=== PATIENT | male | born 1965 | race Caucasian/White ===

== ENCOUNTER 2016-07-29 10:52 | Inpatient (IN) | payer OTHER, MEDICARE ==
[2016-07-29] MEDS ORDERED: SODIUM CHLORIDE 0.9% 500 ML IV STA (11:29)
[2016-07-29] MEDS ORDERED: SODIUM CHLORIDE 0.9% 1,000 ML IV STA (11:29)
[2016-07-29 11:46] LABS: Basophils # (A) 0.1 k/uL (0-0.2); Basophils % (A) 1 %; CHCM 33.6; Eosinophils # (A) 0.1 k/uL (0-0.7); Eosinophils % (A) 1 %; HCT 47.7 % (39.0-53.0); HDW 2.49; HGB 15.9 gm/dL (13.0-17.5); Luc # (Auto) 0.19; Luc % (Auto) 3; Lymphocytes # (A) 2.2 k/uL (1.0-4.8); Lymphocytes % (A) 34 %; MCH 31.9 pg (25.0-35.0); MCHC 33.3 g/dL (31.0-37.0); MCV 95.7 fL (80.0-100.0); Monocytes # (A) 0.5 k/uL (0-1.0); Monocytes % (A) 8 %; Neutrophils # (A) 3.6 k/uL (1.3-7.7); Neutrophils % (A) 54 %; RBC 4.99 m/uL (4.30-5.90); WBC 6.7 k/uL (3.8-10.6); WBC (Perox) 6.58
--- NOTE | 2016-07-29 11:50 | ED ---
General Adult HPI - General Chief complaint: Dizziness Stated complaint: dizzy Time Seen by Provider: 07/29/16 11:24 Source: patient, RN notes reviewed, old records reviewed Mode of arrival: wheelchair Limitations: no limitations - History of Present Illness Initial comments: This is a 51-year-old male here for evaluation of dizziness. Patient having significant rotatory dizziness, falling. Symptoms are going on for a few days on and off. No headache or chest pain. No other neurological deficit aside from the dizziness. Patient states the room was spinning around, he states he does have fogginess, feels lightheaded and weak. No fevers, no significant recent medication changes - Related Data Home Medications Medication Instructions Recorded Confirmed carBAMazepine [Carbatrol] 300 mg PO Q12HR 05/28/15 07/29/16 Atorvastatin [Lipitor] 40 mg PO HS 07/17/15 07/29/16 Divalproex [Depakote] 500 mg PO TID 07/17/15 07/29/16 Fludrocortisone [Florinef] 0.1 mg PO BID 07/17/15 07/29/16 levETIRAcetam [Keppra] 750 mg PO BID 07/17/15 07/29/16 Cholecalciferol [Vitamin D3] 5,000 unit PO DAILY 07/29/15 07/29/16 Metoprolol Tartrate [Lopressor] 12.5 mg PO BID 07/29/15 07/29/16 Niacin 500 mg PO DAILY 07/29/15 07/29/16 Meclizine [Antivert] 25 mg PO TID PRN 07/29/16 07/29/16 Scopolamine 1.5MG/72Hr Patch 1 patch TRANSDERM Q72H 07/29/16 07/29/16 [Transderm-Scop 1.5MG/72Hr Patch] amLODIPine [Norvasc] 5 mg PO DAILY 07/29/16 07/29/16 lamoTRIgine [LaMICtal] 100 mg PO BID 07/29/16 07/29/16 Previous Rx's Medication Instructions Recorded Clopidogrel [Plavix] 75 mg PO DAILY #30 tab 07/19/15 Allergies Allergy/AdvReac Type Severity Reaction Status Date / Time No Known Allergies Allergy Verified 07/29/16 11:49 Review of Systems ROS Statement: Those systems with pertinent positive or pertinent negative responses have been documented in the HPI. ROS Other: All systems not noted in ROS Statement are negative. Past Medical History Past Medical History: Hypertension, Memory Impairment, Seizure Disorder Additional Past Medical History / Comment(s): PT STATED" I HAD A HEART ATTACK AND A STROKE IN MAY," LT SIDE AFFECTED.LT SIDE DOMINANT.STATED" CAN WRITE BUT NOT EASY AND LT FOOT DRAGS A BIT". STILL GETS SPEECH THERAPY.STATED"BOARDERLINE DIABETIC NO MEDS TAKEN".PT ALSO STATED HE WAS TOLD HE HAD KIDNEY TROUBLE". History of Any Multi-Drug Resistant Organisms: None Reported Past Surgical History: Adenoidectomy, Tonsillectomy Additional Past Surgical History / Comment(s): TUBES IN EARS Past Anesthesia/Blood Transfusion Reactions: No Reported Reaction Past Psychological History: No Psychological Hx Reported Additional Psychological History / Comment(s): STATED" STILL HAVE TROUBLE WITH SPEECH AT TIMES AND MEMORY. Smoking Status: Never smoker Past Alcohol Use History: None Reported Past Drug Use History: None Reported - Past Family History Father Family Medical History: Unable to Obtain Mother Family Medical History: Unable to Obtain General Exam Limitations: no limitations General appearance: alert, in no apparent distress Head exam: Present: atraumatic, normocephalic, normal inspection Eye exam: Present: normal appearance, PERRL, EOMI, nystagmus (Bilateral nystagmus). Absent: scleral icterus, conjunctival injection, periorbital swelling ENT exam: Present: normal exam, mucous membranes moist Neck exam: Present: normal inspection. Absent: tenderness, meningismus, lymphadenopathy Respiratory exam: Present: normal lung sounds bilaterally. Absent: respiratory distress, wheezes, rales, rhonchi, stridor Cardiovascular Exam: Present: regular rate, normal rhythm, normal heart sounds. Absent: systolic murmur, diastolic murmur, rubs, gallop, clicks GI/Abdominal exam: Present: soft, normal bowel sounds. Absent: distended, tenderness, guarding, rebound, rigid Extremities exam: Present: normal inspection, full ROM, normal capillary refill. Absent: tenderness, pedal edema, joint swelling, calf tenderness Back exam: Present: normal inspection Neurological exam: Present: alert, oriented X3, CN II-XII intact Psychiatric exam: Present: normal affect, normal mood Skin exam: Present: warm, dry, intact, normal color. Absent: rash Course Vital Signs 07/29/16 07/29/16 07/29/16 10:55 11:20 11:57 Temperature 97.8 F Pulse Rate 75 80 79 Respiratory 20 16 16 Rate Blood Pressure 176/94 195/104 181/114 O2 Sat by Pulse 96 99 98 Oximetry 07/29/16 14:07 Temperature 98.7 F Pulse Rate 76 Respiratory 16 Rate Blood Pressure 175/96 O2 Sat by Pulse 99 Oximetry EKG Findings - EKG Comments: EKG Findings:: EKG shows normal sinus rhythm rate of 83, NJ 136, QRS 86, QTC 451 Medical Decision Making - Medical Decision Making 51-year-old male of the ER for evaluation of a. He comes to the ER for evaluation of a tachycardia, valproic acid is toxic, patient be admitted for IV hydration and monitoring of ataxia - Lab Data Result diagrams: 07/29/16 11:12 07/29/16 11:12 Lab Results 07/29/16 07/29/16 07/29/16 Range/Units 11:12 11:12 11:12 WBC 6.7 (3.8-10.6) k/uL RBC 4.99 (4.30-5.90) m/uL Hgb 15.9 (13.0-17.5) gm/dL Hct 47.7 (39.0-53.0) % MCV 95.7 (80.0-100.0) fL MCH 31.9 (25.0-35.0) pg MCHC 33.3 (31.0-37.0) g/dL RDW 14.0 (11.5-15.5) % Plt Count 182 (150-450) k/uL Neutrophils % 54 % Lymphocytes % 34 % Monocytes % 8 % Eosinophils % 1 % Basophils % 1 % Neutrophils # 3.6 (1.3-7.7) k/uL Lymphocytes # 2.2 (1.0-4.8) k/uL Monocytes # 0.5 (0-1.0) k/uL Eosinophils # 0.1 (0-0.7) k/uL Basophils # 0.1 (0-0.2) k/uL PT (9.0-12.0) sec INR (<1.1) APTT (22.0-30.0) sec Sodium 144 (137-145) mmol/L Potassium 4.0 (3.5-5.1) mmol/L Chloride 101 (98-107) mmol/L Carbon Dioxide 28 (22-30) mmol/L Anion Gap 15 mmol/L BUN 8 L (9-20) mg/dL Creatinine 0.97 (0.66-1.25) mg/dL Est GFR (MDRD) Af Amer >60 (>60 ml/min/1.73 sqM) Est GFR (MDRD) Non-Af >60 (>60 ml/min/1.73 sqM) Glucose 98 (74-99) mg/dL POC Glucose (mg/dL) (75-99) mg/dL POC Glu Manager Skilled ID Calcium 9.6 (8.4-10.2) mg/dL Phosphorus 3.0 (2.5-4.5) mg/dL Magnesium 2.0 (1.6-2.3) mg/dL Total Bilirubin 0.6 (0.2-1.3) mg/dL AST 27 (17-59) U/L ALT 16 L (21-72) U/L Alkaline Phosphatase 77 (38-126) U/L Ammonia (<30) umol/L Total Creatine Kinase 180 H (55-170) U/L CK-MB (CK-2) 0.5 (0.0-2.4) ng/mL CK-MB (CK-2) Rel Index 0.3 Troponin I <0.012 (0.000-0.034) ng/mL Total Protein 8.0 (6.3-8.2) g/dL Albumin 4.7 (3.5-5.0) g/dL Urine Color Urine Appearance (Clear) Urine pH (5.0-8.0) Ur Specific [place] (1.001-1.035) Urine Protein (Negative) Urine Glucose (UA) (Negative) Urine Ketones (Negative) Urine Blood (Negative) Urine Nitrite (Negative) Urine Bilirubin (Negative) Urine Urobilinogen (<2.0) mg/dL Ur Leukocyte Esterase (Negative) Valproic Acid ug/mL 07/29/16 07/29/16 07/29/16 Range/Units 11:12 11:12 11:12 WBC (3.8-10.6) k/uL RBC (4.30-5.90) m/uL Hgb (13.0-17.5) gm/dL Hct (39.0-53.0) % MCV (80.0-100.0) fL MCH (25.0-35.0) pg MCHC (31.0-37.0) g/dL RDW (11.5-15.5) % Plt Count (150-450) k/uL Neutrophils % % Lymphocytes % % Monocytes % % Eosinophils % % Basophils % % Neutrophils # (1.3-7.7) k/uL Lymphocytes # (1.0-4.8) k/uL Monocytes # (0-1.0) k/uL Eosinophils # (0-0.7) k/uL Basophils # (0-0.2) k/uL PT 10.4 (9.0-12.0) sec INR 1.0 (<1.1) APTT 22.4 (22.0-30.0) sec Sodium (137-145) mmol/L Potassium (3.5-5.1) mmol/L Chloride (98-107) mmol/L Carbon Dioxide (22-30) mmol/L Anion Gap mmol/L BUN (9-20) mg/dL Creatinine (0.66-1.25) mg/dL Est GFR (MDRD) Af Amer (>60 ml/min/1.73 sqM) Est GFR (MDRD) Non-Af (>60 ml/min/1.73 sqM) Glucose (74-99) mg/dL POC Glucose (mg/dL) 96 (75-99) mg/dL POC Glu Manager Skilled ID Tal, Lynne Calcium (8.4-10.2) mg/dL Phosphorus (2.5-4.5) mg/dL Magnesium (1.6-2.3) mg/dL Total Bilirubin (0.2-1.3) mg/dL AST (17-59) U/L ALT (21-72) U/L Alkaline Phosphatase (38-126) U/L Ammonia (<30) umol/L Total Creatine Kinase (55-170) U/L CK-MB (CK-2) (0.0-2.4) ng/mL CK-MB (CK-2) Rel Index Troponin I (0.000-0.034) ng/mL Total Protein (6.3-8.2) g/dL Albumin (3.5-5.0) g/dL Urine Color Urine Appearance (Clear) Urine pH (5.0-8.0) Ur Specific [place] (1.001-1.035) Urine Protein (Negative) Urine Glucose (UA) (Negative) Urine Ketones (Negative) Urine Blood (Negative) Urine Nitrite (Negative) Urine Bilirubin (Negative) Urine Urobilinogen (<2.0) mg/dL Ur Leukocyte Esterase (Negative) Valproic Acid 109.2 H* ug/mL 07/29/16 07/29/16 Range/Units 14:00 14:03 WBC (3.8-10.6) k/uL RBC (4.30-5.90) m/uL Hgb (13.0-17.5) gm/dL Hct (39.0-53.0) % MCV (80.0-100.0) fL MCH (25.0-35.0) pg MCHC (31.0-37.0) g/dL RDW (11.5-15.5) % Plt Count (150-450) k/uL Neutrophils % % Lymphocytes % % Monocytes % % Eosinophils % % Basophils % % Neutrophils # (1.3-7.7) k/uL Lymphocytes # (1.0-4.8) k/uL Monocytes # (0-1.0) k/uL Eosinophils # (0-0.7) k/uL Basophils # (0-0.2) k/uL PT (9.0-12.0) sec INR (<1.1) APTT (22.0-30.0) sec Sodium (137-145) mmol/L Potassium (3.5-5.1) mmol/L Chloride (98-107) mmol/L Carbon Dioxide (22-30) mmol/L Anion Gap mmol/L BUN (9-20) mg/dL Creatinine (0.66-1.25) mg/dL Est GFR (MDRD) Af Amer (>60 ml/min/1.73 sqM) Est GFR (MDRD) Non-Af (>60 ml/min/1.73 sqM) Glucose (74-99) mg/dL POC Glucose (mg/dL) (75-99) mg/dL POC Glu Manager Skilled ID Calcium (8.4-10.2) mg/dL Phosphorus (2.5-4.5) mg/dL Magnesium (1.6-2.3) mg/dL Total Bilirubin (0.2-1.3) mg/dL AST (17-59) U/L ALT (21-72) U/L Alkaline Phosphatase (38-126) U/L Ammonia 23 (<30) umol/L Total Creatine Kinase (55-170) U/L CK-MB (CK-2) (0.0-2.4) ng/mL CK-MB (CK-2) Rel Index Troponin I (0.000-0.034) ng/mL Total Protein (6.3-8.2) g/dL Albumin (3.5-5.0) g/dL Urine Color Yellow Urine Appearance Clear (Clear) Urine pH 7.0 (5.0-8.0) Ur Specific [place] 1.008 (1.001-1.035) Urine Protein Negative (Negative) Urine Glucose (UA) Negative (Negative) Urine Ketones Negative (Negative) Urine Blood Negative (Negative) Urine Nitrite Negative (Negative) Urine Bilirubin Negative (Negative) Urine Urobilinogen <2.0 (<2.0) mg/dL Ur Leukocyte Esterase Negative (Negative) Valproic Acid ug/mL - Radiology Data Radiology results: report reviewed (Chest x-ray is negative for acute disease), image reviewed Disposition Clinical Impression: Ataxic gait, Valproic acid toxicity Dis[facility] Condition: Good Referrals: Aman Smyth MD [Primary Care Provider] - 1-2 days
[2016-07-29 11:55] LABS: Partial Thromboplastin Time 22.4 sec (22.0-30.0); Prothrombin Time 10.4 sec (9.0-12.0)
--- NOTE | 2016-07-29 12:03 | CT ---
EXAMINATION TYPE: CT brain wo con DATE OF EXAM: 07/29/2016 11:59 AM COMPARISON: 07/28/15 HISTORY: Dizziness, weakness, frequent falls x10 days. CT DLP: 1017.[address] of the brain was performed. The ventricles, basal cisterns and sulci overlying the cerebral convexities demonstrate mild enlargem ent. There is no evidence for intracranial hemorrhage or sulcal effacement. There is decreased attenuation about the periventricular white matter and deep white matter of both c erebral hemispheres, compatible with chronic small vessel ischemia. Differential diagnosis does inclu de demyelination. No mass effects are seen.No midline shift. Osseous calvarium is intact. If symptoms persist consider MRI. IMPRESSION: 1. Age related atrophic and chronic small vessel ischemic change without acute intracranial process s een at this time.
[2016-07-29 12:11] LABS: ALT 16 U/L (21-72); AST 27 U/L (17-59); Alkaline Phosphatase 77 U/L (38-126); Anion Gap 15 mmol/L; Blood Urea Nitrogen 8 mg/dL (9-20); Calcium 9.6 mg/dL (8.4-10.2); Carbon Dioxide 28 mmol/L (22-30); Chloride 101 mmol/L (98-107); Glucose 98 mg/dL (74-99); Non-African American GFR(MDRD) >60 (>60 ml/min/1.73 sqM); Sodium 144 mmol/L (137-145); Total Bilirubin 0.6 mg/dL (0.2-1.3)
[2016-07-29 12:18] LABS: Creatine Kinase 180 U/L (55-170)
[2016-07-29 12:21] LABS: Glucose,Whole Blood 96 mg/dL (75-99)
[2016-07-29 12:31] LABS: Creatine Kinase MB 0.5 ng/mL (0.0-2.4); Troponin I <0.012 ng/mL (0.000-0.034)
[2016-07-29 14:28] LABS: Appearance,Urine Clear (Clear); Bilirubin,Urine Negative (Negative); Glucose,Urine (UA) Negative (Negative); Ketones,Urine Negative (Negative); Leukocyte Esterase,Urine Negative (Negative); Nitrite,Urine Negative (Negative); Protein,Urine Negative (Negative); Specific Gravity,Urine 1.008 (1.001-1.035); UA Billing (MACRO vs. MICRO) CHEM; Urobilinogen,Urine <2.0 mg/dL (<2.0)
[2016-07-29] MEDS ORDERED: SODIUM CHLORIDE 0.9% 1,000 ML IV ONE (14:35)
[2016-07-29 16:57] VITALS: BMI 35.4
[2016-07-29] MEDS ORDERED: MECLIZINE 25 MG TAB PO PRN (20:15)
--- NOTE | 2016-07-29 20:49 | P.CNNES ---
History of Present Illness Consult date: 07/29/16 History of Present Illness: The patient is a 51-year-old white male with history of seizure disorder. He states he normally has about 2 seizures a month. He has been on Depakote Keppra Carbatrol and Lamictal and continues to have 2 partial seizures per month. Patient states he is a candidate for VNS and he will be having an appointment next week regarding that. The patient states his been dizzy since before [place] time. He came into the hospital with dizziness and was found to have elevated Depakotel of 109. The patient and his CT of the brain which was unremarkable. Review of Systems Constitutional: Denies chills, Denies fever Eyes: denies blurred vision, denies pain Ears, nose, mouth and throat: Denies headache, Denies sore throat Cardiovascular: Denies chest pain, Denies shortness of breath Respiratory: Denies cough Gastrointestinal: Denies abdominal pain, Denies diarrhea, Denies nausea, Denies vomiting Musculoskeletal: Denies myalgias Integumentary: Denies pruritus, Denies rash Neurological: Denies numbness, Denies weakness Psychiatric: Denies anxiety, Denies depression Endocrine: Reports as per HPI Past Medical History Past Medical History: Hypertension, Memory Impairment, Seizure Disorder Additional Past Medical History / Comment(s): PT STATED" I HAD A HEART ATTACK AND A STROKE IN MAY," LT SIDE AFFECTED.LT SIDE DOMINANT.STATED" CAN WRITE BUT NOT EASY AND LT FOOT DRAGS A BIT". STILL GETS SPEECH THERAPY.STATED"BOARDERLINE DIABETIC NO MEDS TAKEN".PT ALSO STATED HE WAS TOLD HE HAD KIDNEY TROUBLE".; last seizure 07/28/16 History of Any Multi-Drug Resistant Organisms: None Reported Past Surgical History: Adenoidectomy, Tonsillectomy Additional Past Surgical History / Comment(s): TUBES IN EARS Past Anesthesia/Blood Transfusion Reactions: No Reported Reaction Past Psychological History: No Psychological Hx Reported Additional Psychological History / Comment(s): STATED" STILL HAVE TROUBLE WITH SPEECH AT TIMES AND MEMORY. Smoking Status: Never smoker Past Alcohol Use History: None Reported Past Drug Use History: None Reported - Past Family History Father Family Medical History: Unable to Obtain Mother Family Medical History: Unable to Obtain Medications and Allergies Home Medications Medication Instructions Recorded Confirmed Type carBAMazepine [Carbatrol] 300 mg PO Q12HR 05/28/15 07/29/16 History Atorvastatin [Lipitor] 40 mg PO HS 07/17/15 07/29/16 History Divalproex [Depakote] 500 mg PO TID 07/17/15 07/29/16 History Fludrocortisone [Florinef] 0.1 mg PO BID 07/17/15 07/29/16 History levETIRAcetam [Keppra] 750 mg PO BID 07/17/15 07/29/16 History Cholecalciferol [Vitamin D3] 5,000 unit PO DAILY 07/29/15 07/29/16 History Metoprolol Tartrate [Lopressor] 12.5 mg PO BID 07/29/15 07/29/16 History Niacin 500 mg PO DAILY 07/29/15 07/29/16 History Meclizine [Antivert] 25 mg PO TID PRN 07/29/16 07/29/16 History Scopolamine 1.5MG/72Hr Patch 1 patch TRANSDERM Q72H 07/29/16 07/29/16 History [Transderm-Scop 1.5MG/72Hr Patch] amLODIPine [Norvasc] 5 mg PO DAILY 07/29/16 07/29/16 History lamoTRIgine [LaMICtal] 100 mg PO BID 07/29/16 07/29/16 History Allergies Allergy/AdvReac Type Severity Reaction Status Date / Time No Known Allergies Allergy Verified 07/29/16 11:49 Physical Examination - Vital Signs Vital Signs: Vital Signs Temp Pulse Pulse Resp BP BP Pulse Ox 07/29/16 16:19 98.2 F 82 16 177/94 96 07/29/16 15:56 98.7 F 65 16 148/85 96 Intake and Output 07/29/16 07/29/16 07/29/16 06:59 14:59 22:59 Intake Total 480 Balance 480 Intake: Oral 480 Other: # Voids 1 Weight 90.718 kg Patient Weight 07/30/16 06:59 Weight 90.718 kg - Constitutional General appearance: average body habitus - EENT EENT: PERRL, hearing intact - Respiratory Respiratory: chest non-tender, lungs clear - Cardiovascular Cardiovascular: regular rate, normal S1, normal S2 - Integumentary Integumentary: normal - Neurologic Mental status he was awake alert and oriented he answered questions appropriately there is no aphasia or dysarthria Cranial nerve examination: EOMI, VFF, V1/V2/V3 grossly intact, face symmetric, tongue midline Speech examination: intact Detailed motor examination: grossly full strength in all extremities Reflexes: 2+: knee - Psychiatric Psychiatric: mood/affect appropriate Results - Laboratory Findings CBC and BMP: 07/29/16 11:12 07/29/16 11:12 Assessment and Plan (1) Ataxic gait Status: Acute Code(s): R26.0 - ATAXIC GAIT (2) Seizures Status: Acute Code(s): R56.9 - UNSPECIFIED CONVULSIONS (3) Valproic acid toxicity Status: Acute Code(s): T42.6X1A - POISONING BY OTH ANTIEPLPTC AND SED-HYPNTC DRUGS, ACC, INIT Plan: The patient came in to the hospital with dizziness and ataxia. Patient had 2 seizures yesterday. We'll check trough anticonvulsant levels in a.m. One dose of Depakote will be held today. Had a CT of the brain which was unremarkable.
[2016-07-29] MEDS ORDERED: DIVALPROEX 500 MG TABLET.DR PO SCH ×2 (22:00)
[2016-07-29] MEDS: FLUDROCORTISONE 0.1 MG TAB PO SCH (22:18)
[2016-07-29] MEDS: carBAMazepine 300 MG CPMP.12HR PO SCH (22:18)
[2016-07-29] MEDS: ATORVASTATIN 40 MG TAB PO SCH (22:18)
[2016-07-29] MEDS: lamoTRIgine 100 MG TAB PO SCH (22:18)
[2016-07-29] MEDS: METOPROLOL TARTRATE 12.5 MG TAB PO SCH (22:18)
[2016-07-30 07:42] LABS: Carbamazepine (Tegretol) 8.4 ug/mL
[2016-07-30] MEDS: carBAMazepine 300 MG CPMP.12HR PO SCH ×2 (08:14→21:26)
[2016-07-30] MEDS: METOPROLOL TARTRATE 12.5 MG TAB PO SCH (08:14)
[2016-07-30] MEDS: DIVALPROEX 500 MG TABLET.DR PO SCH ×2 (08:15→21:26)
[2016-07-30] MEDS: CLOPIDOGREL 75 MG TAB PO SCH (08:16)
[2016-07-30] MEDS: FLUDROCORTISONE 0.1 MG TAB PO SCH ×2 (08:16→21:26)
[2016-07-30] MEDS: lamoTRIgine 100 MG TAB PO SCH ×2 (08:17→21:26)
[2016-07-30] MEDS: NIACIN TR 500 MG CAPSULE.ER PO SCH (08:18)
[2016-07-30] MEDS ORDERED: DIVALPROEX 500 MG TABLET.DR PO SCH (09:00)
[2016-07-30] MEDS ORDERED: amLODIPine 5 MG TAB PO SCH (09:00)
[2016-07-30] MEDS: ENOXAPARIN 40 MG/0.4 ML SYRINGE SQ SCH (09:27)
[2016-07-30] MEDS: CHOLECALCIFEROL 1,000 UNIT TAB PO SCH (12:09)
[2016-07-30] MEDS: METOPROLOL TARTRATE 25 MG TAB PO SCH ×2 (18:04→21:27)
--- NOTE | 2016-07-30 20:54 | HP ---
DATE OF ADMISSION: 07/29/2016 PRESENTING COMPLAINT: Near-syncope. HISTORY OF PRESENTING COMPLAINT: This is a 51-year-old patient who has with a rather extensive medical history. Patient in July of last year was found to have orthostatic hypotension and autonomic dysfunction; could be from prior strokes. Patient also has a diagnosis of absent seizures, coronary artery disease, prior history of myocardial infarction, essential hypertension. Patient did have a seizure about 4 or 5 days ago. Patient presented with getting dizzy, and he nearly passed out 2 times. Patient back in July of last year had a tilt table test and was found to have orthostatic hypotension syndrome. This was done by Dr. Contreras. Patient also had an EEG at that time that showed some moderately diffuse abnormality in the background. There was no seizure activity picked up at that point. Patient was seen on that admission by Dr. Rolle. Patient at this point states that he gets dizzy when he ( ) gets up. There is no focal weakness, no seizure activity with these passing-out episodes or near-syncopal episodes. Hence he presented here. Patient in the past has also had a negative KENNETH and a carotid Doppler and a 2-D echocardiogram that showed preserved LV function. It may be noted that patient had a stroke previously affecting the right frontal, right parietal and occipital lobe and did have an MRA at [facility]. Patient also previously had an ST-elevation myocardial infarction, had a low EF of 30%. Repeat EF had come back to normal. REVIEW OF SYSTEMS: CONSTITUTIONAL: Tired. HEENT: As above. RESPIRATORY: None. CARDIOVASCULAR: None. GASTROINTESTINAL: None. GENITOURINARY: None. MUSCULOSKELETAL: None. DERMATOLOGICAL: None. HEMATOLOGICAL: None. LYMPHATICS: None. PSYCHIATRY: None. NEUROLOGICAL: As above. PAST MEDICAL HISTORY: 1. Stroke affecting the parietal, frontal and left occipital lobe with a negative MRA at [facility]. 2. Acute ST-elevation myocardial infarction. Initial EF was 30%. Repeat echo showed preserved LV function. 3. Seizure disorder. 4. Dysarthria from stroke. 5. Orthostatic hypotension from autonomic dysfunction. PAST SURGICAL HISTORY: 1. Adenoidectomy. 2. Tonsillectomy. 3. Tubes in the ears. SOCIAL HISTORY: . No smoking or alcohol. FAMILY HISTORY: Reviewed; noncontributory to presentation. ALLERGIES: NONE. HOME MEDICATIONS: 1. Scopolamine patch 1.5 q.72 hours. 2. Lipitor 40 mg at bedtime. 3. Keppra 750 mg p.o. b.i.d. 4. Lamictal 100 mg p.o. b.i.d. 5. Carbatrol 300 mg p.o. q.12. 6. Norvasc 5 mg p.o. daily. 7. Niacin 500 mg daily. 8. Lopressor 12.5 p.o. b.i.d. 9. Antivert 25 p.o. t.i.d. p.r.n. 10. Florinef 0.1 mg p.o. b.i.d. 11. Depakote 500 mg p.o. t.i.d. 12. Plavix 75 mg p.o. daily. 13. Vitamin D3 5000 units p.o. daily. PHYSICAL EXAMINATION: VITAL SIGNS ON PRESENTATION: Temperature 97.8, pulse 75, respiration 20, blood pressure 176/94; repeat 195/104. Pulse ox 99% on 2 L. GENERAL APPEARANCE: Average build. Lying in bed. Not in distress. EYES: Pupils equal. Conjunctivae normal. HEENT: External appearance of nose and ears normal. Oral cavity normal. NECK: JVD not raised. Mass not palpable. RESPIRATORY: Effort normal. Lungs are clear. CARDIOVASCULAR: First and second sounds normal. No edema. ABDOMEN: Soft, nontender. Liver and spleen not palpable. LYMPHATIC: No lymph node palpable in neck or axillae. PSYCHIATRY: Alert and oriented x3. Mood and affect normal. NEUROLOGICAL: Pupils equal. Cranial nerves grossly intact. Power and sensation grossly intact. INVESTIGATIONS: White count 6.7, hemoglobin 15.9. Potassium 4.0. BUN 8, creatinine 0.97. Troponin less than 0.012. Patient's valproic acid did come back at 109.2. ASSESSMENT: 1. Valproic acid toxicity. 2. Orthostatic hypertension in a patient with known autonomic dysfunction. 3. Prior strokes in multiple lobes with a negative MRA. 4. Coronary artery disease with prior history of ST-elevation myocardial infarction. 5. Essential hypertension. 6. Absent seizures. PLAN: At this point will check patient's orthostatics, both standing and lying, at 0, 1 and 3 minutes. Will also increase patient's Lopressor to 25 mg 3 times a day and discontinue Norvasc. Neurology was consulted regarding the valproic acid toxic level, and medication will be adjusted accordingly. Will make sure patient has GERTRUDIS stockings. Florinef to be continued. Patient will need inpatient stay of at least 2 nights so that patient does not harm himself and while his medications can be adjusted and neurological workup is done. Patient's previous workup, including carotid Doppler and EEG, was negative, though patient is known to have seizure activity.
[2016-07-30] MEDS: ATORVASTATIN 40 MG TAB PO SCH (21:26)
[2016-07-31] MEDS: FLUDROCORTISONE 0.1 MG TAB PO SCH (08:29)
[2016-07-31] MEDS: lamoTRIgine 100 MG TAB PO SCH (08:29)
[2016-07-31] MEDS: CLOPIDOGREL 75 MG TAB PO SCH (08:29)
[2016-07-31] MEDS: NIACIN TR 500 MG CAPSULE.ER PO SCH (08:29)
[2016-07-31] MEDS: METOPROLOL TARTRATE 25 MG TAB PO SCH ×2 (08:29→16:39)
[2016-07-31] MEDS: carBAMazepine 300 MG CPMP.12HR PO SCH (08:30)
[2016-07-31] MEDS: DIVALPROEX 500 MG TABLET.DR PO SCH ×2 (08:30)
[2016-07-31] MEDS: ENOXAPARIN 40 MG/0.4 ML SYRINGE SQ SCH (08:30)
[2016-07-31] MEDS: CHOLECALCIFEROL 1,000 UNIT TAB PO SCH (13:06)
[2016-07-31 15:51] VITALS: BP 154/87; PULSE 75; RESP 15; TEMP 98.4
--- NOTE | 2016-08-02 09:37 | DS ---
DATE OF ADMISSION: 07/29/2016 DATE OF DISCHARGE: 07/31/2016 FINAL DIAGNOSES: 1. Valproic acid toxicity present on admission. 2. Syncope from orthostatic hypertension in a patient with known autonomic dysfunction. 3. Prior stroke in multiple lobes with negative MRA. 4. Coronary artery disease prior history of ST elevation myocardial infarction. 5. Essential hypertension. 6. Absence seizures. HOSPITAL COURSE: This patient presented with near syncope times two. Patient has from a prior work-up rather extensively had a negative MRA, KENNETH, carotid Doppler all showing preserved LV function. Also had MRA at [facility], all that is negative. Prior stroke affecting lobes. This admission, patient Amlodipine was discontinued and dose of Lopressor was increased. Also given GERTRUDIS stockings. Patient also was found to have Valproic acid toxicity. Level of 109, did come down to 92.2. CT scan of the brain showed some chronic changes. At the time of discharge, the patient actually up and about. Symptoms greatly improved. Note that patient's blood pressure tends to run a bit on the higher side, which is fine as far as his ( ) syncope is being prevented. Care discussed in detail with the patient. Also working ( ) taken from Dr. Rolle from discharge. On exam, lungs are clear. CARDIOVASCULAR: First and second sounds normal. Discharge planning more than 35 minutes. DISCHARGE MEDICATIONS: 1. Amlodipine continued. 2. Carbatrol 300 mg p.o. q12. 3. Lipitor 40 mg q.h.s. 4. Depakote 1000 mg in the morning, 500 mg in the afternoon. 5. Keppra 750 mg p.o. b.i.d. 6. Plavix 75 mg a day. 7. Vitamin D3 5000 units p.o. daily. 8. Niacin 500 mg a day. 9. Lamictal 100 mg p.o. b.i.d. 10. Lopressor 25 mg p.o. t.i.d. DISPOSITION: Home. Follow up with Dr. Smyth in one week. Follow up with Dr. Walsh in one week. Seizure precautions, including no driving. Depakote level in 1 week. DC planning more than 35 minutes.
== END 2016-07-31 19:24 | disposition home or self-care (01) | DRG 57 ==
LOC: EC 10:52 → 3SUR 14:35
PROVIDERS: ADMIT Hospitalist; ATTEND Hospitalist
DX: G90.3 Multi-system degeneration of the autonomic nervous system (principal); G40.89 Other seizures; T42.6X5A Adverse effect of other antiepileptic and sedative-hypnotic drugs, initial encounter; E11.9 Type 2 diabetes mellitus without complications; I10 Essential (primary) hypertension; I25.10 Atherosclerotic heart disease of native coronary artery without angina pectoris; I25.2 Old myocardial infarction; R27.0 Ataxia, unspecified; I69.998 Other sequelae following unspecified cerebrovascular disease; Z79.02 Long term (current) use of antithrombotics/antiplatelets; Z79.899 Other long term (current) drug therapy; Y92.009 Unspecified place in unspecified non-institutional (private) residence as the place of occurrence of the external cause
CPT/HCPCS: 36415; 70450; 80053; 80156; 80164; 80165; 80175; 80177; 81003; 82140; 82550; 82553; 83735; 84100; 84484; 85025; 85610; 85730; 87086; 93005; 96360; 96361; 99285

== ENCOUNTER → 2016-08-05 | Outpatient (CLI) | payer OTHER, MEDICARE | END | disposition home or self-care (01) | LOC: LABWHC1 07:53 | PROVIDERS: ATTEND Hospitalist | DX: R56.9 Unspecified convulsions (principal); Z51.81 Encounter for therapeutic drug level monitoring | CPT/HCPCS: 36415; 80164 ==

== ENCOUNTER → 2017-04-01 | Outpatient (CLI) | payer OTHER, MEDICARE ==
[2017-04-01 10:50] LABS: Carbamazepine (Tegretol) 10.5 ug/mL
[2017-04-02 05:28] LABS: Lamotrigine (Lamictal) 5.4 ug/mL (2.0-15.0)
[2017-04-02 06:17] LABS: Levetiracetam (Keppra) 18.1 ug/mL (3.0-60.0)
== END | disposition home or self-care (01) ==
LOC: LABWHC1 08:09
PROVIDERS: ATTEND Psychiatry & Neurology Pain Medicine
DX: G40.909 Epilepsy, unspecified, not intractable, without status epilepticus (principal)
CPT/HCPCS: 36415; 80156; 80164; 80175; 80177

== ENCOUNTER 2017-04-13 16:26 | Inpatient (IN) | payer OTHER, MEDICARE ==
[2017-04-13] MEDS ORDERED: SODIUM CHLORIDE 0.9% 500 ML IV STA (17:19)
--- NOTE | 2017-04-13 17:26 | ED ---
General Adult HPI - General Chief complaint: Dizziness Stated complaint: Dizziness Time Seen by Provider: 04/13/17 16:30 Source: patient, RN notes reviewed Mode of arrival: EMS Limitations: physical limitation - History of Present Illness Initial comments: This is a 51-year-old male who comes emergency Department with a past medical history significant for seizures a previous heart attack and strokes which have left him with some left-sided deficits. Patient comes in today because over the last couple of days he's felt a little off balance and today the off balance feeling was worse and he fell over a couple of times. Patient states she has a mild headache. Patient denies any numbness or focal weakness. Patient states he has had no palpitations chest pain or difficulty breathing or shortness of breath per patient denies any recent fever or chills. Patient denies feeling lightheaded as if he was going to pass out just off balance. Patient denies any recent injury or trauma of any significance only contusions from a couple falls. Patient denies any abdominal pain patient denies nausea vomiting diarrhea. Patient states when he moves his head the dizziness is definitely worse and she keeps still is better. - Related Data Home Medications Medication Instructions Recorded Confirmed carBAMazepine [Carbatrol] 300 mg PO BID 05/28/15 04/13/17 Atorvastatin [Lipitor] 40 mg PO HS 07/17/15 04/13/17 Divalproex [Depakote] 1,000 mg PO BID 07/17/15 04/13/17 Fludrocortisone [Florinef] 0.1 mg PO BID 07/17/15 04/13/17 Cholecalciferol [Vitamin D3] 5,000 unit PO DAILY 07/29/15 04/13/17 Niacin 1,000 mg PO HS 07/29/15 04/13/17 lamoTRIgine [LaMICtal] 100 mg PO BID 07/29/16 04/13/17 Clopidogrel [Plavix] 75 mg PO DAILY@199903/16/17 04/13/17 Furosemide [Lasix] 20 mg PO HS 03/16/17 04/13/17 levETIRAcetam [Keppra] 1,000 mg PO BID 03/16/17 04/13/17 Metoprolol Tartrate [Lopressor] 25 mg PO TID 04/13/17 04/13/17 Topiramate [Topamax] 25 mg PO DAILY 04/13/17 04/13/17 amLODIPine [Norvasc] 5 mg PO HS 04/13/17 04/13/17 Previous Rx's Medication Instructions Recorded Meclizine [Antivert] 25 mg PO TID #20 tab 04/13/17 Allergies Allergy/AdvReac Type Severity Reaction Status Date / Time No Known Allergies Allergy Verified 04/13/17 17:26 Review of Systems ROS Statement: Those systems with pertinent positive or pertinent negative responses have been documented in the HPI. ROS Other: All systems not noted in ROS Statement are negative. Past Medical History Past Medical History: CVA/TIA, Hyperlipidemia, Hypertension, Memory Impairment, Seizure Disorder, Sleep Apnea/CPAP/BIPAP Additional Past Medical History / Comment(s): PT STATES CVA & TIA (05/2016)- STATES NO WEAKNESS OR RESIDUAL EFFECTS., STATES BORDERLINE DIABETES. PAST HX OF SLEEP APNEA , VAGUS NERVE STIMULATOR. History of Any Multi-Drug Resistant Organisms: None Reported Past Surgical History: Adenoidectomy, Tonsillectomy Additional Past Surgical History / Comment(s): TUBES IN EARS, VAGUS NERVE STIMULATOR FOR SEIZURES. Past Anesthesia/Blood Transfusion Reactions: Previous Problems w/ Anesthesia Additional Past Anesthesia/Blood Transfusion Reaction / Comment(s): STATES A LONG TIME TO WAKE UP AFTER ANESTHESIA. Past Psychological History: No Psychological Hx Reported Smoking Status: Never smoker Past Alcohol Use History: None Reported Past Drug Use History: None Reported - Past Family History Father Family Medical History: No Reported History Mother Family Medical History: No Reported History Brother(s) Family Medical History: Cancer Additional Family Medical History / Comment(s): PROSTATE CANCER WITH METS. General Exam - General Exam Comments Initial Comments: GENERAL: Patient is well-developed and well-nourished. Patient is nontoxic and well- hydrated and is in mild distress. ENT: Neck is soft and supple. No significant lymphadenopathy is noted. Oropharynx is clear. Moist mucous membranes. EYES: The sclera were anicteric and conjunctiva were pink and moist. Extraocular movements were intact and pupils were equal round and reactive to light. Eyelids were unremarkable. PULMONARY: Unlabored respirations. Good breath sounds bilaterally. No audible rales rhonchi or wheezing was noted. CARDIOVASCULAR: There is a regular rate and rhythm without any murmurs gallops or rubs. ABDOMEN: Soft and nontender with normal bowel sounds. No palpable organomegaly was noted. There is no palpable pulsatile mass. SKIN: Skin is clear with no lesions or rashes and otherwise unremarkable. NEUROLOGIC: Patient is alert and oriented x3. Cranial nerves II through XII are grossly intact. Motor and sensory are also intact. Normal speech, volume and content. Symmetrical smile. Patient's cerebellar finger to nose is off on the left but he states this is normal because of his previous strokes. MUSCULOSKELETAL: Normal extremities with adequate strength and full range of motion. No lower extremity swelling or edema. No calf tenderness. LYMPHATICS: No significant lymphadenopathy is noted PSYCHIATRIC: Normal psychiatric evaluation. Normal interpersonal interactions appears functionally intact in deals appropriately with others. No signs of depression. No signs of anxiety. Limitations: physical limitation Course Vital Signs 04/13/17 04/13/17 04/13/17 16:31 18:25 19:33 Temperature 97.9 F Pulse Rate 84 78 80 Respiratory 18 18 Rate Blood Pressure 114/69 146/90 155/91 O2 Sat by Pulse 98 99 100 Oximetry Medical Decision Making - Medical Decision Making EKG shows normal sinus rhythm at 85 bpm IA interval is 162 QRS is 94 Q-T intervals 382 QTC is 454. Patient's EKG shows no ST segment elevation or depression or T wave abnormalities are noted. CT of the brain shows no acute abnormality. Chest x-ray shows no acute normalities. I gave the patient Antivert while emergency department. Patient was unable to ambulate even after the Antivert and even with the assistance of a walker. - Lab Data Result diagrams: 04/13/17 17:45 04/13/17 17:45 Lab Results 04/13/17 04/13/17 04/13/17 Range/Units 17:45 17:45 17:45 WBC 9.4 (3.8-10.6) k/uL RBC 4.70 (4.30-5.90) m/uL Hgb 14.7 (13.0-17.5) gm/dL Hct 44.1 (39.0-53.0) % MCV 93.8 (80.0-100.0) fL MCH 31.3 (25.0-35.0) pg MCHC 33.3 (31.0-37.0) g/dL RDW 14.1 (11.5-15.5) % Plt Count 231 (150-450) k/uL Neutrophils % 80 % Lymphocytes % 13 % Monocytes % 5 % Eosinophils % 0 % Basophils % 0 % Neutrophils # 7.5 (1.3-7.7) k/uL Lymphocytes # 1.2 (1.0-4.8) k/uL Monocytes # 0.5 (0-1.0) k/uL Eosinophils # 0.0 (0-0.7) k/uL Basophils # 0.0 (0-0.2) k/uL PT (9.0-12.0) sec INR (<1.2) APTT (22.0-30.0) sec Sodium 144 (137-145) mmol/L Potassium 5.2 H (3.5-5.1) mmol/L Chloride 106 (98-107) mmol/L Carbon Dioxide 28 (22-30) mmol/L Anion Gap 10 mmol/L BUN 11 (9-20) mg/dL Creatinine 1.10 (0.66-1.25) mg/dL Est GFR (MDRD) Af Amer >60 (>60 ml/min/1.73 sqM) Est GFR (MDRD) Non-Af >60 (>60 ml/min/1.73 sqM) Glucose 94 (74-99) mg/dL Calcium 9.6 (8.4-10.2) mg/dL Magnesium 2.1 (1.6-2.3) mg/dL Total Bilirubin 0.4 (0.2-1.3) mg/dL AST 27 (17-59) U/L ALT 29 (21-72) U/L Alkaline Phosphatase 90 (38-126) U/L Total Creatine Kinase 179 H (55-170) U/L CK-MB (CK-2) 0.9 (0.0-2.4) ng/mL CK-MB (CK-2) Rel Index 0.5 Troponin I 0.017 (0.000-0.034) ng/mL Total Protein 7.5 (6.3-8.2) g/dL Albumin 4.5 (3.5-5.0) g/dL Valproic Acid 47.9 ug/mL 04/13/17 Range/Units 17:45 WBC (3.8-10.6) k/uL RBC (4.30-5.90) m/uL Hgb (13.0-17.5) gm/dL Hct (39.0-53.0) % MCV (80.0-100.0) fL MCH (25.0-35.0) pg MCHC (31.0-37.0) g/dL RDW (11.5-15.5) % Plt Count (150-450) k/uL Neutrophils % % Lymphocytes % % Monocytes % % Eosinophils % % Basophils % % Neutrophils # (1.3-7.7) k/uL Lymphocytes # (1.0-4.8) k/uL Monocytes # (0-1.0) k/uL Eosinophils # (0-0.7) k/uL Basophils # (0-0.2) k/uL PT 10.1 (9.0-12.0) sec INR 1.0 (<1.2) APTT 21.8 L (22.0-30.0) sec Sodium (137-145) mmol/L Potassium (3.5-5.1) mmol/L Chloride (98-107) mmol/L Carbon Dioxide (22-30) mmol/L Anion Gap mmol/L BUN (9-20) mg/dL Creatinine (0.66-1.25) mg/dL Est GFR (MDRD) Af Amer (>60 ml/min/1.73 sqM) Est GFR (MDRD) Non-Af (>60 ml/min/1.73 sqM) Glucose (74-99) mg/dL Calcium (8.4-10.2) mg/dL Magnesium (1.6-2.3) mg/dL Total Bilirubin (0.2-1.3) mg/dL AST (17-59) U/L ALT (21-72) U/L Alkaline Phosphatase (38-126) U/L Total Creatine Kinase (55-170) U/L CK-MB (CK-2) (0.0-2.4) ng/mL CK-MB (CK-2) Rel Index Troponin I (0.000-0.034) ng/mL Total Protein (6.3-8.2) g/dL Albumin (3.5-5.0) g/dL Valproic Acid ug/mL Disposition Clinical Impression: Vertigo, Ataxia Disposition: ADMITTED IP TO THIS HOSP Instructions: Vertigo (ED) Prescriptions: Meclizine [Antivert] 25 mg PO TID #20 tab Referrals: Aman Smyth MD [Primary Care Provider] - 1-2 days Time of Disposition: 18:48
[2017-04-13 18:03] LABS: Basophils % (A) 0 %; Eosinophils % (A) 0 %; HCT 44.1 % (39.0-53.0); HGB 14.7 gm/dL (13.0-17.5); Lymphocytes # (A) 1.2 k/uL (1.0-4.8); Lymphocytes % (A) 13 %; MCH 31.3 pg (25.0-35.0); MCHC 33.3 g/dL (31.0-37.0); MCV 93.8 fL (80.0-100.0); Mean Platelet Volume 7.5; Monocytes # (A) 0.5 k/uL (0-1.0); Monocytes % (A) 5 %; Neutrophils # (A) 7.5 k/uL (1.3-7.7); Neutrophils % (A) 80 %; Platelet Count 231 k/uL (150-450); RDW 14.1 % (11.5-15.5); WBC 9.4 k/uL (3.8-10.6)
[2017-04-13 18:07] LABS: ALT 29 U/L (21-72); AST 27 U/L (17-59); Albumin 4.5 g/dL (3.5-5.0); Alkaline Phosphatase 90 U/L (38-126); Anion Gap 10 mmol/L; Blood Urea Nitrogen 11 mg/dL (9-20); Calcium 9.6 mg/dL (8.4-10.2); Carbon Dioxide 28 mmol/L (22-30); Chloride 106 mmol/L (98-107); Glucose 94 mg/dL (74-99); Magnesium 2.1 mg/dL (1.6-2.3); Potassium 5.2 mmol/L (3.5-5.1); Sodium 144 mmol/L (137-145); Total Bilirubin 0.4 mg/dL (0.2-1.3); Total Protein 7.5 g/dL (6.3-8.2)
[2017-04-13 18:13] LABS: Valproic Acid (Depakene) 47.9 ug/mL
[2017-04-13 18:20] LABS: Prothrombin Time 10.1 sec (9.0-12.0)
--- NOTE | 2017-04-13 18:21 | CT ---
EXAMINATION: CT brain wo con DATE AND TIME: 04/13/2017 6:01 PM ORDERING PROVIDER: Juancarlos Varma MD CLINICAL INDICATION: Pain dizziness without injury TECHNIQUE: Standard departmental protocol. COMPARISON: 07/29/2016 DESCRIPTION: The calvarium is intact. There is no intracranial hemorrhage. There is no mass or mass e ffect. There is no definite new attenuation defect. Remainder of the intra-axial and extra-axial comp artment examination is unremarkable. The paranasal sinuses, middle ear cavities, and mastoid sinus ai r cells are clear. The orbits are intact. IMPRESSION: NO ACUTE PROCESS.
[2017-04-13 18:29] LABS: Creatine Kinase MB 0.9 ng/mL (0.0-2.4); Troponin I 0.017 ng/mL (0.000-0.034)
[2017-04-13 18:31] LABS: Partial Thromboplastin Time 21.8 sec (22.0-30.0)
--- NOTE | 2017-04-13 18:32 | XR ---
EXAMINATION: XR chest 2V DATE AND TIME: 04/13/2017 6:03 PM ORDERING PROVIDER: Juancarlos Varma MD CLINICAL INDICATION: Chest Pain dizziness TECHNIQUE: PA and lateral COMPARISON: 07/28/2015 DESCRIPTION: Since the prior study a CYBX rounded medical bill processor has been inserted, seen implanted an teriorly over the left chest wall. Its leads rise cephalad toward the base of the left neck, and thes e leads terminate in this region, superimposed over the left apex. The lungs are clear. The pleural spaces are negative. The cardiac silhouette is not enlarged. The mediastinal and pleural silhouettes are unremarkable. The skeletal structures are intact without focal findings. The soft tissues are unremarkable. IMPRESSION: NO ACUTE PULMONARY/PLEURAL PROCESS. HOWEVER, NEW SENIOR TECHNICAL RECRUITER NOTED ABOVE - FOR WHICH CLINICAL CORRELATION IS REQUESTED.
[2017-04-13] MEDS ORDERED: MECLIZINE 25 MG TAB PO STA (18:47)
[2017-04-13] MEDS ORDERED: SODIUM CHLORIDE 0.9% 1,000 ML IV ONE (21:03)
[2017-04-13] MEDS ORDERED: MECLIZINE 25 MG TAB PO PRN (21:04)
[2017-04-13 22:49] VITALS: BMI 32.9
[2017-04-14 01:19] LABS: Valproic Acid (Depakene) 40.4 ug/mL
[2017-04-14] MEDS: lamoTRIgine 100 MG TAB PO SCH ×3 (01:25→20:26)
[2017-04-14] MEDS: levETIRAcetam 500 MG TAB PO SCH ×3 (01:25→20:29)
[2017-04-14] MEDS: carBAMazepine 300 MG CPMP.12HR PO SCH ×3 (01:25→20:26)
[2017-04-14] MEDS: DIVALPROEX 500 MG TABLET.DR PO SCH ×2 (09:01→20:25)
[2017-04-14 09:10] LABS: Carbamazepine (Tegretol) 9.5 ug/mL
[2017-04-14 09:12] LABS: Valproic Acid (Depakene) 35.8 ug/mL
[2017-04-14 11:31] LABS: Urine Alcohol Negative (Negative); Urine Barbiturate Negative (Negative); Urine Cocaine Negative (Negative); Urine Methadone Negative (Negative); Urine Opiates Negative (Negative); Urine Phencyclidine Negative (Negative)
[2017-04-14] MEDS ORDERED: VALPROATE SODIUM 700 MG in SODIUM CHLORIDE 0.9% 50 ML IVPB STA (15:55)
--- NOTE | 2017-04-14 15:59 | P.CNNES ---
History of Present Illness Consult date: 04/14/17 Reason for Consult: Patient being evaluated for unsteady gait and seizure disorder. History of Present Illness: This patient is a 51-year-old right-handed white male was brought into the emergency room for evaluation of dizziness and unsteady gait. Patient states that he is feeling dizzy for several days prior to coming to the emergency room. He was seen in the ER by Dr. Varma. He underwent a computed tomography scan of the brain to rule out acute stroke which came back negative and was reported to show no new changes. No evidence of acute stroke or hemorrhage. Patient states that he was having symptoms of dizziness in which the room was spinning around. He went outdoors and fell into a snow bank and had difficulty standing and ambulating. His symptoms seem to wax and wane. He continued to have definitive closely with balance in the emergency room and appeared to be slightly ataxic. Once again his CAT scan of the brain was reported normal. Patient does have history of seizure disorder. There was concern he may be toxic as he is on multiple anticonvulsant medications. His Depakote level was checked and was 35.8. His Tegretol level was 9.5. He was suggested on his Depakote level today and given an extra IV bolus of Depacon 700 mg. We will recheck his anticonvulsant blood levels later. The patient continues to feel dizzy. He describes it as true vertigo in which the room spins around. He is unable to ambulate when these episodes occur. He has been given some Antivert which apparently does help. He has not been seen by ENT specialist for further evaluation of this vertigo. Would recommend ENT consultation. Patient would also benefit from inpatient rehab as he is undergone physical therapy in the past. The patient denies any recent symptoms of TIA or stroke. He does have history of stroke in the past. He does take Plavix on a regular basis for secondary stroke prevention. For his seizure management he also has a VNS nerve stimulator. He has had this working since last year and apparently has been functioning well. He denies any recent reported seizures. We would recommend to get his Depakote however into a therapeutic range. Patient is now admitted and neurology has been consulted for further evaluation and recommendation. Review of Systems Constitutional: Denies chills, Denies fever Eyes: denies blurred vision, denies pain Ears, nose, mouth and throat: Denies headache, Denies sore throat Cardiovascular: Denies chest pain, Denies shortness of breath Respiratory: Denies cough Gastrointestinal: Denies abdominal pain, Denies diarrhea, Denies nausea, Denies vomiting Musculoskeletal: Denies myalgias Integumentary: Denies pruritus, Denies rash Neurological: Reports balance difficulties, Reports hearing difficulties, Reports vertigo, Denies numbness, Denies weakness Psychiatric: Denies anxiety, Denies depression Endocrine: Denies fatigue, Denies weight change Past Medical History Past Medical History: CVA/TIA, Hyperlipidemia, Hypertension, Memory Impairment, Seizure Disorder, Sleep Apnea/CPAP/BIPAP Additional Past Medical History / Comment(s): PT STATES CVA & TIA STATES some slight residual left sided weakness, STATES BORDERLINE DIABETES. PAST HX OF SLEEP APNEA , VAGUS NERVE STIMULATOR. History of Any Multi-Drug Resistant Organisms: None Reported Past Surgical History: Adenoidectomy, Tonsillectomy Additional Past Surgical History / Comment(s): TUBES IN EARS, VAGUS NERVE STIMULATOR FOR SEIZURES. Past Anesthesia/Blood Transfusion Reactions: Previous Problems w/ Anesthesia Additional Past Anesthesia/Blood Transfusion Reaction / Comment(s): STATES A LONG TIME TO WAKE UP AFTER ANESTHESIA. Past Psychological History: No Psychological Hx Reported Additional Psychological History / Comment(s): . Smoking Status: Never smoker Past Alcohol Use History: None Reported Past Drug Use History: None Reported - Past Family History Father Family Medical History: No Reported History Mother Family Medical History: No Reported History Brother(s) Family Medical History: Cancer Additional Family Medical History / Comment(s): PROSTATE CANCER WITH METS. Medications and Allergies Home Medications Medication Instructions Recorded Confirmed Type carBAMazepine [Carbatrol] 300 mg PO BID 05/28/15 04/13/17 History Atorvastatin [Lipitor] 40 mg PO HS 07/17/15 04/13/17 History Divalproex [Depakote] 1,000 mg PO BID 07/17/15 04/13/17 History Fludrocortisone [Florinef] 0.1 mg PO BID 07/17/15 04/13/17 History Cholecalciferol [Vitamin D3] 5,000 unit PO DAILY 07/29/15 04/13/17 History Niacin 1,000 mg PO HS 07/29/15 04/13/17 History lamoTRIgine [LaMICtal] 100 mg PO BID 07/29/16 04/13/17 History Clopidogrel [Plavix] 75 mg PO DAILY@199903/16/17 04/13/17 History Furosemide [Lasix] 20 mg PO HS 03/16/17 04/13/17 History levETIRAcetam [Keppra] 1,000 mg PO BID 03/16/17 04/13/17 History Meclizine [Antivert] 25 mg PO TID #20 tab 04/13/17 Rx Metoprolol Tartrate [Lopressor] 25 mg PO TID 04/13/17 04/13/17 History Topiramate [Topamax] 25 mg PO DAILY 04/13/17 04/13/17 History amLODIPine [Norvasc] 5 mg PO HS 04/13/17 04/13/17 History Allergies Allergy/AdvReac Type Severity Reaction Status Date / Time No Known Allergies Allergy Verified 04/13/17 17:26 Physical Examination - Vital Signs Vital Signs: Vital Signs Temp Pulse Pulse Pulse Resp BP BP 04/14/17 13:55 80 16 04/14/17 08:00 73 16 04/14/17 07:00 97.6 F 73 16 109/60 04/13/17 22:47 97.7 F 65 16 163/88 04/13/17 21:38 97.5 F L 74 16 148/86 04/13/17 19:33 80 18 155/91 04/13/17 18:25 78 18 146/90 04/13/17 16:31 97.9 F 84 114/69 BP Pulse Ox 04/14/17 13:55 146/81 04/14/17 08:00 04/14/17 07:00 96 04/13/17 22:47 100 04/13/17 21:38 99 04/13/17 19:33 100 04/13/17 18:25 99 04/13/17 16:31 98 Intake and Output 04/13/17 04/14/17 04/14/17 22:59 06:59 14:59 Other: # Voids 1 Weight 92.5 kg - Constitutional General appearance: average body habitus, cooperative - EENT EENT: PERRL, mucous membranes moist - Respiratory Respiratory: lungs clear, normal breath sounds - Cardiovascular Cardiovascular: regular rate, normal S1, normal S2 Extremities: no peripheral edema bilaterally - Gastrointestinal Gastrointestinal: normoactive bowel sounds - Integumentary Integumentary: normal - Neurologic Cranial nerve examination: PERRL, EOMI, V1/V2/V3 grossly intact, intact gag reflex, intact corneal reflex, normal palatal elevation Speech examination: intact Sensorimotor examination: intact Detailed motor examination: grossly full strength in all extremities Motor examination - right side: 4/5: biceps, triceps, wrist flexion, wrist extension, jack spooler tender, hip flexors, knee extensors, dorsiflexion, toe extension (EHL) , plantarflexion Motor examination - left side: 4/5: biceps, triceps, wrist flexion, wrist extension, jack spooler tender, hip flexors, knee extensors, dorsiflexion, toe extension (EHL) , plantarflexion Detailed sensory examination: intact Reflex and gait examination: intact Reflexes: 1+: ankle, bicep, knee, tricep - Musculoskeletal Musculoskeletal: no pain - Psychiatric Psychiatric: mood/affect appropriate, cooperative Results - Laboratory Findings CBC and BMP: 04/13/17 17:45 04/13/17 17:45 Abnormal Lab Findings: Abnormal Labs 04/13/17 04/13/17 04/13/17 17:45 17:45 17:45 APTT 21.8 L Potassium 5.2 H Total Creatine Kinase 179 H Assessment and Plan (1) Vertigo Current Visit: Yes Status: Acute Code(s): R42 - DIZZINESS AND GIDDINESS SNOMED Code(s): 472220248 (2) Ataxia Current Visit: Yes Status: Acute Code(s): R27.0 - ATAXIA, UNSPECIFIED SNOMED Code(s): 21386689 (3) CVA (cerebral vascular accident) Current Visit: No Status: Acute Code(s): I63.9 - CEREBRAL INFARCTION, UNSPECIFIED SNOMED Code(s): 397599955 (4) Seizures Current Visit: No Status: Acute Code(s): R56.9 - UNSPECIFIED CONVULSIONS SNOMED Code(s): 44334160 Plan: This patient is a 51-year-old male being evaluated for dizziness and unsteady gait. He has a history of seizure disorder and is on multiple anticonvulsant medications. His levels were checked and are as noted above. Is no evidence of anticonvulsant toxicity at this time. He describes his vertigo is true spinning sensation. He has been using Antivert since admission which does seem to help. Recommend ENT consultation for further evaluation. Patient also describes a unsteady gait. He has undergone this therapy in the past and would recommend to continue with PT evaluation for him during this admission. But also consider inpatient rehab evaluation by Dr. Dash. We will continue to monitor his progress closely during this admission. His Depakote level was slightly subtherapeutic at 35.8. We will re-a check his Depakote level tomorrow morning after being treated with IV bolus Depacon. We will continue to monitor his progress closely. His CAT scan of the brain failed to reveal any acute changes. His overall prognosis at this time remains guarded. Time with Patient: Greater than 30
[2017-04-14] MEDS: ENOXAPARIN 40 MG/0.4 ML SYRINGE SQ SCH (16:45)
[2017-04-14] MEDS: FLUDROCORTISONE 0.1 MG TAB PO SCH (16:46)
[2017-04-14] MEDS: METOPROLOL TARTRATE 25 MG TAB PO SCH ×2 (16:46→20:27)
[2017-04-14] MEDS: TOPIRAMATE 25 MG TAB PO SCH (16:46)
--- NOTE | 2017-04-14 16:48 | HP ---
HISTORY AND PHYSICAL DATE OF ADMISSION: 04/13/17. PRESENTING COMPLAINT: Fall. HISTORY OF PRESENTING COMPLAINT: This is a 51-year-old patient, well known to me from prior admissions with rather extensive medical history. I last saw this patient in July 2016. The patient has been diagnosed of orthostatic hypotension and autonomic dysfunction, possibly from prior strokes. The patient's chronic stable medical conditions include aspirin, seizures, coronary artery disease, essential hypertension. The patient has had a tilt-table test and been found to have orthostatic hypotension syndrome. This was done by Dr. Contreras. The patient in the past has had a negative KENNETH, carotid Doppler, 2D echocardiogram. The patient has also had a stroke affecting the right frontal, right parietal and occipital lobe. Did have a [facility] at [facility]. The patient also had a myocardial infarction with EF of 30%. Repeat ejection fraction then was negative. The patient had been getting episodes when he gets up he gets dizzy and nearly falls down. Because of recurrence of these, patient did present to the hospital. REVIEW OF SYSTEMS: CONSTITUTIONAL: None. HEENT: As above. RESPIRATORY: None. CARDIOVASCULAR: None. GASTROINTESTINAL: Denies. GENITOURINARY: None. MUSCULOSKELETAL: None. DERMATOLOGICAL: None. HEMATOLOGIC: None. LYMPHATIC: None. PSYCHIATRY: None. NEUROLOGICAL: As above. No focal symptoms. PAST MEDICAL HISTORY: 1. Stroke affecting the right frontoparietal and left occipital lobe with negative MRA. 2. Myocardial infarction. Initially EF 30%, repeat showing preserved LV function. 3. Seizure disorder. 4. Dysarthria from stroke. 5. Orthostatic hypotension syndrome for autonomic dysfunction. PAST SURGICAL HISTORY: Adenoidectomy, tonsillectomy, tubes in the ears. SOCIAL HISTORY: , no smoking, no alcohol. FAMILY HISTORY: Reviewed noncontributory to presentation. ALLERGIES: None. HOME MEDICATIONS: 1. Keppra 1000 mg b.i.d. 2. Lamictal 100 mg b.i.d. 3. Carbatrol 300 mg p.o. b.i.d. 4. Norvasc 5 mg q.h.s. 5. Topamax 25 mg p.o. daily. 6. Niacin 1000 mg q.h.s. 7. Lopressor 25 p.o. t.i.d. 8. Antivert 25 p.o. t.i.d. 9. Lasix 20 mg q.h.s. 10.Florinef 0.1 mg b.i.d. 11.Depakote 1000 mg p.o. b.i.d. 12.Plavix 75 mg p.o. daily. 13.Vitamin D3 500 units p.o. daily. 14.Lipitor 40 mg q.h.s. ALLERGIES: None. PHYSICAL EXAMINATION: Vital signs on presentation: Temperature 97.9, pulse 84, respiration 18, blood pressure 114/69, pulse ox 98% on room. GENERAL APPEARANCE: Well built, BMI 32.9, lying in bed, awake. EYES: Pupils equal. Conjunctivae normal. HEENT: Oral cavity normal. NECK: JVD not raised. Mass not palpable. RESPIRATORY: Effort, lungs are clear. CARDIOVASCULAR: First and second sounds normal. No edema. ABDOMEN: Soft, nontender. Liver and spleen not palpable. LYMPHATIC: No lymph node palpable. PSYCHIATRY: Alert and oriented x3. Mood and affect normal. NEUROLOGICAL: Pupils equal. Cranial nerves grossly intact. Power and sensation grossly intact. INVESTIGATIONS: White count 9.2, hemoglobin 14.7, potassium 5.2, BUN and creatinine are normal. Urine drug screen negative. CT scan of the brain nil acute. ASSESSMENT: 1. Recurrent episodes of near-syncope and dizziness standing up in a patient who has had a previous tilt-table test. Possible exacerbation of his orthostatic hypotension syndrome likely from history of prior strokes. 2. Coronary artery disease, prior history of ST-elevation myocardial infarction. 3. Essential hypertension. 4. Absence seizures. PLAN: Patient's home medications will be resumed. Will discontinue patient's Lasix. The patient is already on Florinef. Will add Steffen stockings. Will get opinion from Dr. Rolle. Will also measure orthostatics. Care was discussed with the patient, his sister and mother at the bedside. Questions were answered. MMODL / IJN: [id number] /
[2017-04-14] MEDS: NIACIN TR 250 MG CAPSULE.ER PO SCH (20:25)
[2017-04-14] MEDS: amLODIPine 5 MG TAB PO SCH (20:25)
[2017-04-14] MEDS: ATORVASTATIN 40 MG TAB PO SCH (20:27)
[2017-04-14] MEDS: CLOPIDOGREL 75 MG TAB PO SCH (20:29)
--- NOTE | 2017-04-15 06:47 | P.CONS ---
History of Present Illness - Chief Complaint Vertigo with gait ataxia - History of Present Illness I had the opportunity to see patient for inpatient rehab consultation regard to gait disturbance. He was admitted to [facility] April 13 with dizziness 1 years duration and gait unsteadiness. Seen by Dr. Kimo Machuca. Initial head CT negative. Chest x-ray demonstrates new Cybex device. PT prescribed. I have added OT. Previous functional history as elicited from patient: 51-year-old left-handed white male who is long term first-floor apartment with . On disability. does the cooking, laundry, driving. Patient describes independent with standing shower and gait without device. Regular doctors Dr. Smyth. Review of Systems Review of systems: ENT: Denies sneezes or discharge. Eyes: Denies discharge or photophobia. Cardiac: Denies chest pain or palpitation. Pulmonary: Denies cough or shortness of breath. Gastrointestinal: Denies nausea, emesis, constipation, diarrhea. Genitourinary: Denies discharge or frequency. Musculoskeletal: Denies muscle or bone aches. Neurologic: Dizziness and unsteadiness of gait. Endocrine: Denies shakes or sweats. Oncology: Denies cancers. Dermatologic: Denies rash, itching, pruritus. ALLERGY/immunology: Denies sneezes, rashes. Past Medical History Past Medical History: CVA/TIA, Hyperlipidemia, Hypertension, Memory Impairment, Seizure Disorder, Sleep Apnea/CPAP/BIPAP Additional Past Medical History / Comment(s): PT STATES CVA & TIA STATES some slight residual left sided weakness, STATES BORDERLINE DIABETES. PAST HX OF SLEEP APNEA , VAGUS NERVE STIMULATOR. History of Any Multi-Drug Resistant Organisms: None Reported Past Surgical History: Adenoidectomy, Tonsillectomy Additional Past Surgical History / Comment(s): TUBES IN EARS, VAGUS NERVE STIMULATOR FOR SEIZURES. Past Anesthesia/Blood Transfusion Reactions: Previous Problems w/ Anesthesia Additional Past Anesthesia/Blood Transfusion Reaction / Comm: STATES A LONG TIME TO WAKE UP AFTER ANESTHESIA. Past Psychological History: No Psychological Hx Reported Additional Psychological History / Comment(s): . Smoking Status: Never smoker Past Alcohol Use History: None Reported Past Drug Use History: None Reported - Past Family History Father Family Medical History: No Reported History Mother Family Medical History: No Reported History Brother(s) Family Medical History: Cancer Additional Family Medical History / Comment(s): PROSTATE CANCER WITH METS. Medications and Allergies Home Medications Medication Instructions Recorded Confirmed Type carBAMazepine [Carbatrol] 300 mg PO BID 05/28/15 04/13/17 History Atorvastatin [Lipitor] 40 mg PO HS 07/17/15 04/13/17 History Divalproex [Depakote] 1,000 mg PO BID 07/17/15 04/13/17 History Fludrocortisone [Florinef] 0.1 mg PO BID 07/17/15 04/13/17 History Cholecalciferol [Vitamin D3] 5,000 unit PO DAILY 07/29/15 04/13/17 History Niacin 1,000 mg PO HS 07/29/15 04/13/17 History lamoTRIgine [LaMICtal] 100 mg PO BID 07/29/16 04/13/17 History Clopidogrel [Plavix] 75 mg PO DAILY@199903/16/17 04/13/17 History Furosemide [Lasix] 20 mg PO HS 03/16/17 04/13/17 History levETIRAcetam [Keppra] 1,000 mg PO BID 03/16/17 04/13/17 History Meclizine [Antivert] 25 mg PO TID #20 tab 04/13/17 Rx Metoprolol Tartrate [Lopressor] 25 mg PO TID 04/13/17 04/13/17 History Topiramate [Topamax] 25 mg PO DAILY 04/13/17 04/13/17 History amLODIPine [Norvasc] 5 mg PO HS 04/13/17 04/13/17 History Allergies Allergy/AdvReac Type Severity Reaction Status Date / Time No Known Allergies Allergy Verified 04/13/17 17:26 Physical Exam Vitals: Vital Signs Temp Pulse Pulse Resp BP BP Pulse Ox 04/14/17 23:00 97.1 F L 69 16 116/76 96 04/14/17 20:24 74 137/79 96 04/14/17 15:11 73 76 16 04/14/17 15:00 97.6 F 76 16 96 04/14/17 13:55 80 16 146/81 04/14/17 08:00 73 16 04/14/17 07:00 97.6 F 73 16 109/60 96 Intake and Output 04/14/17 04/14/17 04/15/17 14:59 22:59 06:59 Intake Total 800 590 Output Total 1000 Balance 800 -410 Intake: Oral 800 590 Output: Urine 1000 Other: # Voids 1 Skin: Good color, texture, turgor. General: Medium build to overweight and comfortable appearance. Head: Normocephalic, atraumatic. Eyes: Symmetric. Pupils equal round. Ears: Symmetric. Hearing within normal limits. Mouth: Clear. Neck: Supple. Carotid without bruit. Cardiac: Regular rate and rhythm. Lungs: Clear anteriorly and posteriorly. Abdomen: Soft active nontender. Overweight. Extremities: Normal tone. Neurological: Mental status: Alert, cooperative, pleasant. Cranial nerves: Symmetric facial tone and trapezius. Motor: Normal strength and isolation all 4 limbs. Sensation: Intact throughout. DTRs: Symmetric and equal throughout. Mobility: Sits and stands with moderate plus assistance in definitely would've fallen on own. Results CBC & Chem 7: 04/13/17 17:45 04/13/17 17:45 Assessment and Plan (1) CVA (cerebral vascular accident) Current Visit: No Status: Acute Code(s): I63.9 - CEREBRAL INFARCTION, UNSPECIFIED SNOMED Code(s): 668937412 Plan: Impression: 1. Gait disturbance. 2. Acute stroke with gait disturbance/ataxia. With history of stroke. 3. Patient describes inner ear problem. 4. Hypertension. 5. Dyslipidemia. 6. Memory impairment. 7. Seizure disorder. Comments and plan: PT prescribed and I have added OT. We'll follow therapies with yourself. Definite safety concerns noted with standing, on my own.
[2017-04-15 08:30] LABS: Lamotrigine (Lamictal) 4.8 ug/mL (2.0-15.0)
[2017-04-15] MEDS: TOPIRAMATE 25 MG TAB PO SCH (08:44)
[2017-04-15] MEDS: FLUDROCORTISONE 0.1 MG TAB PO SCH ×2 (08:44→20:30)
[2017-04-15] MEDS: ENOXAPARIN 40 MG/0.4 ML SYRINGE SQ SCH (08:44)
[2017-04-15] MEDS: levETIRAcetam 500 MG TAB PO SCH ×2 (08:44→20:30)
[2017-04-15] MEDS: carBAMazepine 300 MG CPMP.12HR PO SCH ×2 (08:44→20:30)
[2017-04-15] MEDS: lamoTRIgine 100 MG TAB PO SCH ×2 (08:45→20:30)
[2017-04-15] MEDS: DIVALPROEX 500 MG TABLET.DR PO SCH ×2 (08:45→20:30)
[2017-04-15] MEDS: METOPROLOL TARTRATE 25 MG TAB PO SCH ×3 (08:45→22:00)
[2017-04-15 08:49] LABS: Levetiracetam (Keppra) 26.3 ug/mL (3.0-60.0)
[2017-04-15 12:49] LABS: Anion Gap 11 mmol/L; Blood Urea Nitrogen 15 mg/dL (9-20); Calcium 9.1 mg/dL (8.4-10.2); Carbon Dioxide 24 mmol/L (22-30); Chloride 106 mmol/L (98-107); Glucose 86 mg/dL (74-99); Sodium 141 mmol/L (137-145)
--- NOTE | 2017-04-15 17:16 | P.PN ---
Progress Note - Text Progress Note Date: 04/15/17 DATE OF SERVICE: 04/15/2017 PRESENTING COMPLAINT: Fall and Dizziness HISTORY OF PRESENT ILLNESS: 51-year-old male who presented after he had been finding himself getting dizzy when he stands up and nearly falls down. History is significant for a tilt table test, found to have orthostatic hypotension syndrome. Admitted for dizziness and falling INTERVAL HISTORY: 04/15/2017: Patient lying in bed appears somewhat anxious, states he feels about the same has been minimal improvement in his dizziness. Was seen by Dr. Dash in today for possible admission to [facility] facility. Tolerating his diet, eating between 30 and 50% of his meals up with assistance and walker, and does almost fall when getting up. Last BM 04/14/2017. REVIEW OF SYSTEMS: Done for constitutional ,cardiovascular, GI, pulmonary with relevant findings as above. CURRENT MEDICATIONS Norvasc, Lipitor, carbamazepine, Plavix, Depakote, Lovenox, Florinef, Lamictal, Keppra, Lopressor, niacin, Topamax. PHYSICAL EXAM VITAL SIGNS: Temp temperature 98.1, pulse 60, respiratory rate 18, blood pressure 110/74, oxygen saturation 96% GENERAL APPEARANCE: Lying in bed, mildly anxious appearing. HEENT: Normocephalic, Pupils equal. Conjunctiva normal. JVD not raised. Mass not palpable.: RESPIRATORY: Respiratory effort normal. Lungs clear to auscultation. CARDIOVASCULAR: First and second sounds normal. No edema. ABDOMEN: Soft. Liver and spleen not palpable. No tenderness. No mass palpable. PSYCHIATRY: Alert and oriented x3. Mood and affect normal. INVESTIGATIONS: LABS: BMP unremarkable ASSESSMENT: -Recurrent episodes of near syncope, and dizziness standing up in a patient who has had a previous tilt table test. Possible exacerbation of his orthostatic hypotension syndrome likely from history of prior strokes. -Coronary artery disease, prior history of ST elevation myocardial infarction. -Essential hypertension. -Absence seizures PLAN: Continue orthostatic vitals, MRI did not reveal any new findings per neurology. Received a bolus of Depacon for low Depakote level. Suggest inpatient rehab with Dr. Dash, possible discharge tomorrow if authorization received by [facility]. Plan of care discussed at the bedside patient's agreeable we'll follow closely. FORMING MACHINE OPERATOR statement: Patient was seen and examined by nurse practitioner Tatum John and all elements of the case discussed with attending Dr. Licona
[2017-04-15] MEDS: amLODIPine 5 MG TAB PO SCH (20:30)
[2017-04-15] MEDS: ATORVASTATIN 40 MG TAB PO SCH (20:30)
[2017-04-15] MEDS: CLOPIDOGREL 75 MG TAB PO SCH (20:30)
[2017-04-15] MEDS: NIACIN TR 250 MG CAPSULE.ER PO SCH (20:30)
--- NOTE | 2017-04-15 22:14 | P.PN ---
Subjective Progress Note Date: 04/15/17 This patient is a 51 year old male was admitted to hospital with gait disturbance and dizziness. Patient also has a history of underlying seizure disorder for which she has been on multiple anticonvulsant medications. His Depakote level was subtherapeutic and he was given a bolus yesterday for correction of this low level. His Depakote level today is therapeutic at 77.7. He has been up and ambulating in the room with the use of his walker. He was evaluated today by Dr. Schwartz for inpatient rehab. Hopefully he will be able to be transferred for inpatient rehab tomorrow. Patient states he is feeling better but still feels slight episodic dizziness. When he is up and ambulating with his walker he does seem to have more right leg weakness. Apparently this has been present for years. The patient is to continue with his current anticonvulsant medications. We will continue to follow his progress tomorrow and await further recommendations from Dr. Dash for possible inpatient rehab placement tomorrow. Objective - Vital Signs Vital signs: Vital Signs Temp 97.7 F 04/15/17 14:51 Pulse 73 04/15/17 16:00 Resp 16 04/15/17 16:00 BP 117/76 04/15/17 14:51 Pulse Ox 94 L 04/15/17 14:51 Intake & Output 04/15/17 04/15/17 04/16/17 06:59 18:59 06:59 Intake Total 590 980 Output Total 1000 400 Balance -410 580 Weight 92.5 kg Intake: Oral 590 980 Output: Urine 1000 400 Other: # Voids 1 - Exam Physical examination: PHYSICAL EXAMINATION: Patient is resting comfortably in bed. VITAL SIGNS: Blood pressure is [117/76]. Heart rate is [69]. Respiration is [16] . Temperature is [97.7]. HEENT: Head is atraumatic, neck is supple, there were no carotid bruits. CHEST: Lungs are clear to auscultation and percussion. CARDIAC: S1, S2 normal rate and rhythm. There is no murmur. ABDOMEN: Soft and nontender. Bowel sounds are present. EXTREMITIES: There is no pedal edema. Peripheral pulses are present. Neurological examination: Patient's neurologic examination is unchanged from yesterday. - Labs CBC & Chem 7: 04/13/17 17:45 04/15/17 07:22 Assessment and Plan (1) Vertigo Current Visit: Yes Status: Acute Code(s): R42 - DIZZINESS AND GIDDINESS SNOMED Code(s): 092395942 (2) Ataxia Current Visit: Yes Status: Acute Code(s): R27.0 - ATAXIA, UNSPECIFIED SNOMED Code(s): 35233250 (3) CVA (cerebral vascular accident) Current Visit: No Status: Acute Code(s): I63.9 - CEREBRAL INFARCTION, UNSPECIFIED SNOMED Code(s): 170851057 (4) Seizures Current Visit: No Status: Acute Code(s): R56.9 - UNSPECIFIED CONVULSIONS SNOMED Code(s): 18558115 Plan: This patient is a 51-year-old male who was admitted to Hospital with symptoms of dizziness and unsteady gait. We have recommended that he continue on his current anticonvulsant medications. His Depakote level today is therapeutic at 77.7. He was seen by Dr. Dash today for possible inpatient rehab at [facility]. He may be accepted for transfer tomorrow. We will continue to monitor his progress closely. He is to follow-up with ENT in the outpatient clinic and apparently will be seen there by Dr. Martin on 2017. Patient was updated on all of his test results today. We will continue to monitor his condition closely. Await possible inpatient rehab placement for the patient tomorrow. Overall prognosis at this time remains guarded.
--- NOTE | 2017-04-16 05:27 | PN ---
PROGRESS NOTE DATE OF SERVICE: 04/15/2017. ATTENDING NOTE: This patient was seen and examined by me. I discussed the case with nurse practitioner, Ms. John. The patient presented with near syncope. The patient has got known orthostatic hypotension. The patient may go for rehab. Feeling a bit better. On examination, afebrile. Pulse 69, blood pressure 117/76. Lungs are clear. CARDIOVASCULAR: First and second sounds normal. Potassium 4.0. ASSESSMENT: 1. Orthostatic hypotension syndrome from history of prior strokes. 2. Other medical conditions stable. The patient may be accepted for inpatient rehab at [facility]. Await authorization. Care was discussed with the patient. MMODL / IJN: [id number] /
[2017-04-16] MEDS: carBAMazepine 300 MG CPMP.12HR PO SCH (09:24)
[2017-04-16] MEDS: levETIRAcetam 500 MG TAB PO SCH (09:24)
[2017-04-16] MEDS: DIVALPROEX 500 MG TABLET.DR PO SCH (09:24)
[2017-04-16] MEDS: ENOXAPARIN 40 MG/0.4 ML SYRINGE SQ SCH (09:25)
[2017-04-16] MEDS: FLUDROCORTISONE 0.1 MG TAB PO SCH (09:25)
[2017-04-16] MEDS: METOPROLOL TARTRATE 25 MG TAB PO SCH ×2 (09:26→16:56)
[2017-04-16] MEDS: TOPIRAMATE 25 MG TAB PO SCH (09:26)
[2017-04-16] MEDS: lamoTRIgine 100 MG TAB PO SCH (09:26)
[2017-04-16 15:56] VITALS: RESP 16
--- NOTE | 2017-04-16 16:50 | P.DS ---
Providers Date of admission: 04/15/17 14:55 Expected date of discharge: 04/16/17 Attending physician: Kurtis Licona Consults: 04/13/17 21:03 Consult Physician Urgent Consulting Provider: Sravani Rolle Consult Reason/Comments: Ataxia Do you want consulting provider notified?: Yes 04/14/17 16:30 Consult Physician Urgent Consulting Provider: Zachery Gracia Consult Reason/Comments: Patient with vertigo and multiple falls with gait ataxia. Do you want consulting provider notified?: Yes 04/15/17 08:00 Consult Physician Urgent Consulting Provider: Nile Dash Consult Reason/Comments: Patient with ataxic gait and dizziness. Do you want consulting provider notified?: Yes Primary care physician: Aman Malin [facility] Course: FINAL DIAGNOSES: -Recurrent episodes of near syncope, and dizziness standing up in a patient who has had a previous tilt table test. Possible exacerbation of his orthostatic hypotension syndrome likely from history of prior strokes. -Coronary artery disease, prior history of ST elevation myocardial infarction. -Essential hypertension. -Absence seizures HOSPTIAL COURSE: 51-year-old male admitted for recurrent episodes of syncope. History significant for tilt table test and orthostatic hypotension syndrome. Home medications reordered, neurology inpatient rehab, and ENT consulted. Evaluated by neurology, computed tomography scan revealed no acute changes, Depakote level was found to be subtherapeutic was given a bolus to correct. Should continue current antibiotic convulsant medications, Antivert to continue and Dr. Dash consulted to evaluate patient for inpatient rehab. Dr. Dash recommends inpatient rehab at [facility]. ENT consulted to see the patient and has made an appointment for the patient to be seen in the outpatient setting. Patient's tolerating his diet up with assistance and a walker, last BM 04/15/2017. Overall condition is stable and patient is appropriate for discharge to [facility] physical rehab. PHYSICAL EXAM: CARDIOVASCULAR: First and second sounds noted no edema. RESPIRATORY: Lung sounds diminished bilaterally respiratory effort normal GI:Abdomen soft nontender liver and spleen not palpable MUSKULOSKELETAL:Ambulatory with a walker is able to sit and stand with moderate plus assistance somewhat unsteady. NEUROLOGIC: : Gait disturbance/ataxia, history of stroke Patient was seen and examined by nurse practitioner Tatum John in all elements of the case discussed with attending Dr. Licona DISPOSITION:Discharge [facility] rehab department. Patient Condition at Discharge: Stable Plan - Discharge Summary New Discharge Prescriptions: Continue carBAMazepine [Carbatrol] 300 mg PO BID Atorvastatin [Lipitor] 40 mg PO HS Fludrocortisone [Florinef] 0.1 mg PO BID Divalproex [Depakote] 1,000 mg PO BID Cholecalciferol [Vitamin D3] 5,000 unit PO DAILY Niacin 1,000 mg PO HS lamoTRIgine [LaMICtal] 100 mg PO BID levETIRAcetam [Keppra] 1,000 mg PO BID Clopidogrel [Plavix] 75 mg PO DAILY@1999 Furosemide [Lasix] 20 mg PO HS Topiramate [Topamax] 25 mg PO DAILY amLODIPine [Norvasc] 5 mg PO HS Metoprolol Tartrate [Lopressor] 25 mg PO TID Discharge Medication List carBAMazepine [Carbatrol] 300 mg PO BID 05/28/15 [History] Atorvastatin [Lipitor] 40 mg PO HS 07/17/15 [History] Divalproex [Depakote] 1,000 mg PO BID 07/17/15 [History] Fludrocortisone [Florinef] 0.1 mg PO BID 07/17/15 [History] Cholecalciferol [Vitamin D3] 5,000 unit PO DAILY 07/29/15 [History] Niacin 1,000 mg PO HS 07/29/15 [History] lamoTRIgine [LaMICtal] 100 mg PO BID 07/29/16 [History] Clopidogrel [Plavix] 75 mg PO DAILY@199903/16/17 [History] Furosemide [Lasix] 20 mg PO HS 03/16/17 [History] levETIRAcetam [Keppra] 1,000 mg PO BID 03/16/17 [History] Metoprolol Tartrate [Lopressor] 25 mg PO TID 04/13/17 [History] Topiramate [Topamax] 25 mg PO DAILY 04/13/17 [History] amLODIPine [Norvasc] 5 mg PO HS 04/13/17 [History] Follow up Appointment(s)/Referral(s): Bhupendra Rolle MD [STAFF PHYSICIAN] - 1 Week Aman Smyth MD [Primary Care Provider] - As Needed Zachery Gracia MD [STAFF PHYSICIAN] - 04/22/17 Nile Dash MD [STAFF PHYSICIAN] - 04/17/17 Ambulatory/Diagnostic Orders: Basic Metabolic Panel [LAB.AMB] Location: Determined By Patient Patient Instructions/Handouts: Vertigo (ED) Activity/Diet/Wound Care/Special Instructions: regular diet Discharge Disposition: TRANSFER TO SNF/ECF
--- NOTE | 2017-04-16 20:15 | P.PN ---
Subjective Progress Note Date: 04/16/17 This patient is a 51 year old male was admitted to hospital with gait disturbance and dizziness. Patient also has a history of underlying seizure disorder for which she has been on multiple anticonvulsant medications. His Depakote level was subtherapeutic and he was given a bolus yesterday for correction of this low level. His Depakote level today is therapeutic at 77.7. He has been up and ambulating in the room with the use of his walker. He was evaluated today by Dr. Schwartz for inpatient rehab. Hopefully he will be able to be transferred for inpatient rehab tomorrow. Patient states he is feeling better but still feels slight episodic dizziness. When he is up and ambulating with his walker he does seem to have more right leg weakness. Apparently this has been present for years. The patient is to continue with his current anticonvulsant medications. We will continue to follow his progress tomorrow and await further recommendations from Dr. Dash for possible inpatient rehab placement tomorrow. Patient is being considered a candidate for inpatient rehab at [facility]. Discharge summary is also been completed today. We will continue to follow him as needed. Objective - Vital Signs Vital signs: Vital Signs Temp 98.0 F 04/16/17 15:00 Pulse 80 04/16/17 15:00 Resp 16 04/16/17 15:00 BP 138/70 04/16/17 15:00 Pulse Ox 98 04/16/17 15:00 Intake & Output 04/15/17 04/16/17 04/16/17 18:59 06:59 18:59 Intake Total 980 1090 Output Total 400 400 Balance 580 1090 -400 Weight 92.5 kg 92.5 kg Intake: Oral 980 1090 Output: Urine 400 400 Other: # Voids 450 - Exam Physical examination: PHYSICAL EXAMINATION: Patient is resting comfortably in bed. VITAL SIGNS: Blood pressure is [138/70]. Heart rate is [80]. Respiration is [16] . Temperature is [98.0]. HEENT: Head is atraumatic, neck is supple, there were no carotid bruits. CHEST: Lungs are clear to auscultation and percussion. CARDIAC: S1, S2 normal rate and rhythm. There is no murmur. ABDOMEN: Soft and nontender. Bowel sounds are present. EXTREMITIES: There is no pedal edema. Peripheral pulses are present. Neurological examination: Patient's neurologic examination is unchanged from yesterday. - Labs CBC & Chem 7: 04/13/17 17:45 04/15/17 07:22 Assessment and Plan (1) Vertigo Current Visit: Yes Status: Acute Code(s): R42 - DIZZINESS AND GIDDINESS SNOMED Code(s): 295186469 (2) Ataxia Current Visit: Yes Status: Acute Code(s): R27.0 - ATAXIA, UNSPECIFIED SNOMED Code(s): 41742184 (3) CVA (cerebral vascular accident) Current Visit: No Status: Acute Code(s): I63.9 - CEREBRAL INFARCTION, UNSPECIFIED SNOMED Code(s): 014073727 (4) Seizures Current Visit: No Status: Acute Code(s): R56.9 - UNSPECIFIED CONVULSIONS SNOMED Code(s): 92562666 Plan: This patient is a 52-year-old male who is being considered for inpatient rehab at [facility]. He has a history of seizure disorder and generalized weakness. He is to follow-up with the ENT specialist upon discharge. Patient has been ambulating better with his walker today. As noted he is being considered for discharge to [facility] later today. He is to continue on his current anticonvulsant medications. He will follow-up with his primary care physician soon after discharge from rehab. His overall prognosis at this time remains guarded.
[2017-04-16 21:11] VITALS: BP 163/77; PULSE 95; TEMP 98.8
--- NOTE | 2017-04-17 06:48 | DS ---
DISCHARGE SUMMARY DATE OF SERVICE: 04/16/17. ATTENDING NOTE: Patient seen and examined by me. Discussed with my nurse practitioner, Ms. John. The patient accepted by Dr. Dash at [facility]. The patient is feeling a bit better. EXAM: Lungs are clear. Cardiovascular: First and second sounds are normal. Patient to be discharged on current medications. Care was discussed with the patient. MMODL / IJN: [id number] /
== END 2017-04-16 21:55 | DRG 312 ==
LOC: EC 16:26 → INTOOBSV 21:03 → 5MS5E 21:03 → OBSVTOIN 04-15 14:55
PROVIDERS: ADMIT Hospitalist; ATTEND Hospitalist
DX: I95.1 Orthostatic hypotension (principal); I69.354 Hemiplegia and hemiparesis following cerebral infarction affecting left non-dominant side; E78.5 Hyperlipidemia, unspecified; G40.909 Epilepsy, unspecified, not intractable, without status epilepticus; I10 Essential (primary) hypertension; I25.10 Atherosclerotic heart disease of native coronary artery without angina pectoris; R29.6 Repeated falls; R26.81 Unsteadiness on feet; G47.30 Sleep apnea, unspecified; I25.2 Old myocardial infarction; Z79.899 Other long term (current) drug therapy; Z79.02 Long term (current) use of antithrombotics/antiplatelets; Z90.89 Acquired absence of other organs; I69.322 Dysarthria following cerebral infarction; Z80.42 Family history of malignant neoplasm of prostate
CPT/HCPCS: 36415; 70450; 71046; 80048; 80053; 80156; 80164; 80175; 80177; 80306; 82550; 82553; 83735; 84484; 85025; 85610; 85730; 93005; 96360; 96361; 99285

== ENCOUNTER 2017-06-21 15:39 | Emergency (ER) | payer OTHER, MEDICARE ==
[2017-06-21 15:46] VITALS: RESP 18
[2017-06-21] MEDS ORDERED: SODIUM CHLORIDE 0.9% 1,000 ML IV ONE (15:47)
--- NOTE | 2017-06-21 15:51 | ED ---
General Adult HPI - General Chief complaint: Seizure Stated complaint: Seizure Time Seen by Provider: 06/21/17 15:45 Source: EMS, RN notes reviewed Mode of arrival: EMS Limitations: no limitations - History of Present Illness Initial comments: This a 52-year-old male who presents to the emergency department complaining of having had 2 seizures today. Patient states she's had a history of seizures since she's been a child. Patient states she's on Keppra takes it daily. Patient states he had a seizure this morning and another one this afternoon. Patient states he has a seizure every few months but it's unusual to have 2 seizures in one day. Patient states he has however had more than one seizure in the day in the past. Patient denies any recent fever chills or cough. Patient denies any headache patient denies any numbness weakness per patient denies any chest pain palpitations difficulty breathing first breath per patient denies any abdominal pain patient denies nausea vomiting or diarrhea. - Related Data Home Medications Medication Instructions Recorded Confirmed Fludrocortisone [Florinef] 0.1 mg PO BID 07/17/15 06/21/17 Cholecalciferol [Vitamin D3] 5,000 unit PO DAILY 07/29/15 06/21/17 lamoTRIgine [LaMICtal] 100 mg PO BID 07/29/16 06/21/17 Clopidogrel [Plavix] 75 mg PO @199903/16/17 06/21/17 Divalproex ER [Depakote ER] 500 mg PO BID 06/21/17 06/21/17 Allergies Allergy/AdvReac Type Severity Reaction Status Date / Time No Known Allergies Allergy Verified 06/21/17 16:48 Review of Systems ROS Statement: Those systems with pertinent positive or pertinent negative responses have been documented in the HPI. ROS Other: All systems not noted in ROS Statement are negative. Past Medical History Past Medical History: CVA/TIA, Hyperlipidemia, Hypertension, Memory Impairment, Seizure Disorder, Sleep Apnea/CPAP/BIPAP Additional Past Medical History / Comment(s): PT STATES CVA & TIA STATES some slight residual left sided weakness, STATES BORDERLINE DIABETES. PAST HX OF SLEEP APNEA , VAGUS NERVE STIMULATOR. History of Any Multi-Drug Resistant Organisms: None Reported Past Surgical History: Adenoidectomy, Tonsillectomy Additional Past Surgical History / Comment(s): TUBES IN EARS, VAGUS NERVE STIMULATOR FOR SEIZURES. Past Anesthesia/Blood Transfusion Reactions: Previous Problems w/ Anesthesia Additional Past Anesthesia/Blood Transfusion Reaction / Comment(s): STATES A LONG TIME TO WAKE UP AFTER ANESTHESIA. Past Psychological History: No Psychological Hx Reported Smoking Status: Never smoker Past Alcohol Use History: None Reported Past Drug Use History: None Reported - Past Family History Father Family Medical History: No Reported History Mother Family Medical History: No Reported History Brother(s) Family Medical History: Cancer Additional Family Medical History / Comment(s): PROSTATE CANCER WITH METS. General Exam - General Exam Comments Initial Comments: GENERAL: Patient is well-developed and well-nourished. Patient is nontoxic and well- hydrated and is in no acute distress. ENT: Neck is soft and supple. No significant lymphadenopathy is noted. Oropharynx is clear. Moist mucous membranes. Neck has full range of motion without eliciting any pain. EYES: The sclera were anicteric and conjunctiva were pink and moist. Extraocular movements were intact and pupils were equal round and reactive to light. Eyelids were unremarkable. PULMONARY: Unlabored respirations. Good breath sounds bilaterally. No audible rales rhonchi or wheezing was noted. CARDIOVASCULAR: There is a regular rate and rhythm without any murmurs gallops or rubs. ABDOMEN: Soft and nontender with normal bowel sounds. No palpable organomegaly was noted. There is no palpable pulsatile mass. SKIN: Skin is clear with no lesions or rashes and otherwise unremarkable. NEUROLOGIC: Patient is alert and oriented x3. Cranial nerves II through XII are grossly intact. Motor and sensory are also intact. Normal speech, volume and content. Symmetrical smile. MUSCULOSKELETAL: Normal extremities with adequate strength and full range of motion. LYMPHATICS: No significant lymphadenopathy is noted PSYCHIATRIC: Normal psychiatric evaluation. Limitations: no limitations Course Vital Signs 06/21/17 06/21/17 15:41 16:39 Temperature 98.6 F Pulse Rate 120 H 102 H Respiratory 18 18 Rate Blood Pressure 181/107 162/84 O2 Sat by Pulse 99 98 Oximetry Medical Decision Making - Medical Decision Making EKG shows sinus tachycardia at 101 bpm FL interval 180 QRS is 90 QT interval 332 QTC is 4:30. Patient's EKG shows no ST segment elevation or depression or T wave abnormalities are noted. - Lab Data Result diagrams: 06/21/17 15:33 06/21/17 15:33 Lab Results 06/21/17 06/21/17 06/21/17 Range/Units 15:33 15:33 15:33 WBC 7.7 (3.8-10.6) k/uL RBC 4.77 (4.30-5.90) m/uL Hgb 14.3 (13.0-17.5) gm/dL Hct 43.6 (39.0-53.0) % MCV 91.4 (80.0-100.0) fL MCH 30.1 (25.0-35.0) pg MCHC 32.9 (31.0-37.0) g/dL RDW 14.6 (11.5-15.5) % Plt Count 221 (150-450) k/uL Neutrophils % 62 % Lymphocytes % 29 % Monocytes % 6 % Eosinophils % 1 % Basophils % 0 % Neutrophils # 4.8 (1.3-7.7) k/uL Lymphocytes # 2.3 (1.0-4.8) k/uL Monocytes # 0.5 (0-1.0) k/uL Eosinophils # 0.1 (0-0.7) k/uL Basophils # 0.0 (0-0.2) k/uL Sodium 143 (137-145) mmol/L Potassium 4.2 (3.5-5.1) mmol/L Chloride 102 (98-107) mmol/L Carbon Dioxide 26 (22-30) mmol/L Anion Gap 15 mmol/L BUN 9 (9-20) mg/dL Creatinine 0.80 (0.66-1.25) mg/dL Est GFR (CKD-EPI)AfAm >90 (>60 ml/min/1.73 sqM) Est GFR (CKD-EPI)NonAf >90 (>60 ml/min/1.73 sqM) Glucose 107 H (74-99) mg/dL Calcium 9.9 (8.4-10.2) mg/dL Total Bilirubin 0.4 (0.2-1.3) mg/dL AST 28 (17-59) U/L ALT 26 (21-72) U/L Alkaline Phosphatase 95 (38-126) U/L Total Protein 7.7 (6.3-8.2) g/dL Albumin 4.5 (3.5-5.0) g/dL Valproic Acid 54.9 ug/mL Disposition Clinical Impression: Generalized seizure Disposition: HOME SELF-CARE Instructions: Recurrent Seizures in Adults (ED) Additional Instructions: Patient should follow-up with Dr. Walsh. Patient should continue taking Her as prescribed and Depakote as prescribed Referrals: Aman Smyth MD [Primary Care Provider] - 1-2 days Time of Disposition: 16:55
[2017-06-21 16:03] LABS: Basophils % (A) 0 %; Eosinophils # (A) 0.1 k/uL (0-0.7); Eosinophils % (A) 1 %; HCT 43.6 % (39.0-53.0); HGB 14.3 gm/dL (13.0-17.5); Lymphocytes # (A) 2.3 k/uL (1.0-4.8); Lymphocytes % (A) 29 %; MCH 30.1 pg (25.0-35.0); MCHC 32.9 g/dL (31.0-37.0); MCV 91.4 fL (80.0-100.0); Mean Platelet Volume 7.7; Monocytes # (A) 0.5 k/uL (0-1.0); Monocytes % (A) 6 %; Neutrophils # (A) 4.8 k/uL (1.3-7.7); Neutrophils % (A) 62 %; Platelet Count 221 k/uL (150-450); RBC 4.77 m/uL (4.30-5.90); RDW 14.6 % (11.5-15.5); WBC 7.7 k/uL (3.8-10.6)
[2017-06-21 16:16] LABS: ALT 26 U/L (21-72); AST 28 U/L (17-59); Albumin 4.5 g/dL (3.5-5.0); Alkaline Phosphatase 95 U/L (38-126); Anion Gap 15 mmol/L; Blood Urea Nitrogen 9 mg/dL (9-20); Calcium 9.9 mg/dL (8.4-10.2); Carbon Dioxide 26 mmol/L (22-30); Chloride 102 mmol/L (98-107); Glucose 107 mg/dL (74-99); Potassium 4.2 mmol/L (3.5-5.1); Sodium 143 mmol/L (137-145); Total Bilirubin 0.4 mg/dL (0.2-1.3); Total Protein 7.7 g/dL (6.3-8.2)
[2017-06-21] MEDS ORDERED: levETIRAcetam 500 MG TAB PO STA (16:49)
[2017-06-21 17:13] VITALS: BP 167/83; PULSE 101; TEMP 98.4
== END 2017-06-21 17:12 | disposition home or self-care (01) ==
LOC: EC 15:39
DX: G40.409 Other generalized epilepsy and epileptic syndromes, not intractable, without status epilepticus (principal); R00.0 Tachycardia, unspecified; G47.30 Sleep apnea, unspecified; Z79.02 Long term (current) use of antithrombotics/antiplatelets; Z79.52 Long term (current) use of systemic steroids; Z79.899 Other long term (current) drug therapy; Z99.89 Dependence on other enabling machines and devices; Z86.73 Personal history of transient ischemic attack (TIA), and cerebral infarction without residual deficits; Z96.89 Presence of other specified functional implants
CPT/HCPCS: 36415; 80053; 80164; 80177; 85025; 93005; 96360; 99284

== ENCOUNTER 2017-06-21 22:45 | Inpatient (IN) | payer OTHER, MEDICARE ==
[2017-06-21] MEDS ORDERED: SODIUM CHLORIDE 0.9% 1,000 ML IV STA (22:58)
[2017-06-21] MEDS ORDERED: LORazepam 2 MG/ML INJ IV STA (22:58)
--- NOTE | 2017-06-21 23:06 | ED ---
General Adult HPI - General Chief complaint: Fall Stated complaint: poss hypothermia Time Seen by Provider: 06/21/17 22:50 Source: patient, EMS, RN notes reviewed Mode of arrival: EMS Limitations: altered mental status - History of Present Illness Initial comments: Patient is a pleasant 52-year-old male presenting to the emergency department after being found outside. Patient was reportedly in the emergency department earlier today. Patient had a seizure prior to that. Patient left emergency department. Patient believes he had another seizure. Patient was on account of 4 for up to 2 hours. Patient was found outside of family's house. Patient was reportedly on the ground. Police officers were called for suspicion of an intruder. EMS reports patient's clothes were wet and near frozen. Patient feels cold at this time. Patient believes he had another seizure. Patient denies any significant injury. - Related Data Home Medications Medication Instructions Recorded Confirmed Fludrocortisone [Florinef] 0.1 mg PO BID 07/17/15 06/21/17 Cholecalciferol [Vitamin D3] 5,000 unit PO DAILY 07/29/15 06/21/17 lamoTRIgine [LaMICtal] 100 mg PO BID 07/29/16 06/21/17 Clopidogrel [Plavix] 75 mg PO HS@199903/16/17 06/21/17 Divalproex ER [Depakote ER] 500 mg PO BID 06/21/17 06/21/17 Allergies Allergy/AdvReac Type Severity Reaction Status Date / Time No Known Allergies Allergy Verified 06/21/17 22:56 Review of Systems ROS Statement: Those systems with pertinent positive or pertinent negative responses have been documented in the HPI. ROS Other: All systems not noted in ROS Statement are negative. Constitutional: Denies: fever Eyes: Denies: eye pain ENT: Denies: ear pain Respiratory: Denies: cough Cardiovascular: Denies: chest pain Endocrine: Denies: fatigue Gastrointestinal: Denies: abdominal pain Genitourinary: Denies: dysuria Musculoskeletal: Denies: back pain Skin: Denies: rash Neurological: Denies: headache, weakness Past Medical History Past Medical History: CVA/TIA, Hyperlipidemia, Hypertension, Memory Impairment, Seizure Disorder, Sleep Apnea/CPAP/BIPAP Additional Past Medical History / Comment(s): PT STATES CVA & TIA STATES some slight residual left sided weakness, STATES BORDERLINE DIABETES. PAST HX OF SLEEP APNEA , VAGUS NERVE STIMULATOR. History of Any Multi-Drug Resistant Organisms: None Reported Past Surgical History: Adenoidectomy, Tonsillectomy Additional Past Surgical History / Comment(s): TUBES IN EARS, VAGUS NERVE STIMULATOR FOR SEIZURES. Past Anesthesia/Blood Transfusion Reactions: Previous Problems w/ Anesthesia Additional Past Anesthesia/Blood Transfusion Reaction / Comment(s): STATES A LONG TIME TO WAKE UP AFTER ANESTHESIA. Past Psychological History: No Psychological Hx Reported Smoking Status: Never smoker Past Alcohol Use History: None Reported Past Drug Use History: None Reported - Past Family History Father Family Medical History: No Reported History Mother Family Medical History: No Reported History Brother(s) Family Medical History: Cancer Additional Family Medical History / Comment(s): PROSTATE CANCER WITH METS. General Exam Limitations: no limitations General appearance: alert, other (Patient has tremor which he relates to being cold.) Head exam: Present: other (Forehead abrasion) Eye exam: Present: normal appearance, PERRL, EOMI. Absent: nystagmus ENT exam: Present: normal oropharynx Neck exam: Present: normal inspection. Absent: tenderness Respiratory exam: Present: normal lung sounds bilaterally Cardiovascular Exam: Present: normal rhythm, tachycardia GI/Abdominal exam: Present: soft. Absent: tenderness Extremities exam: Present: normal inspection, full ROM. Absent: tenderness Neurological exam: Present: alert, oriented X3, CN II-XII intact. Absent: motor sensory deficit Expanded Neurological exam: Present: protecting the airway Patient oriented to: Present: person, place, time Cranial nerves: Facial Sensation: Normal Sensory exam: Upper Extremity Light Touch: Normal, Lower Extremity Light Touch: Normal Motor strength exam: RUE: 5, LUE: 5, RLE: 5, LLE: 5 Eye Response: (4) open spontaneously Motor Response: (6) obeys commands Verbal Response: (5) oriented Psychiatric exam: Present: normal affect, normal mood Skin exam: Present: abrasion (Forehead abrasions) Course Vital Signs 06/21/17 06/21/17 06/22/17 22:46 23:03 00:22 Temperature 97.3 F L 100.0 F H Pulse Rate 127 H 111 H Respiratory 24 20 Rate Blood Pressure 138/97 161/106 O2 Sat by Pulse 96 95 Oximetry - Reevaluation(s) Reevaluation #1: 06/21/17 23:36 It is unclear if patient is currently taking Keppra or not. Case was discussed with Dr. Walsh who recommends providing Depakote 500 mg IV now. He recommends in the morning continuing Lamictal at 100 twice a day, increase Depakote to 750 twice a day, and have patient taking Keppra 1000 mg twice a day. 06/22/17 00:33 Patient reevaluated and more alert and appropriate. Patient and family do believe that patient is taking Keppra. They also believe patient is taking Carbatrol. Case is also discussed with practitioner Vito, who will admit for Dr. Mcdaniels, covering for Dr. alexander, who will admit for Dr. Smyth. EKG Findings - EKG Comments: EKG Findings:: EKG shows sinus tachycardia 129. ID 168. QRS 78. QT 294. QTC 4:30. Normal axis. Normal QRS. No acute ST change. Medical Decision Making - Lab Data Result diagrams: 06/21/17 23:58 06/21/17 23:58 Lab Results 06/21/17 06/21/17 Range/Units 23:58 23:58 WBC 19.2 H (3.8-10.6) k/uL RBC 4.70 (4.30-5.90) m/uL Hgb 14.7 (13.0-17.5) gm/dL Hct 43.2 (39.0-53.0) % MCV 91.9 (80.0-100.0) fL MCH 31.3 (25.0-35.0) pg MCHC 34.0 (31.0-37.0) g/dL RDW 14.5 (11.5-15.5) % Plt Count 278 (150-450) k/uL Neutrophils % 90 % Lymphocytes % 5 % Monocytes % 3 % Eosinophils % 1 % Basophils % 0 % Neutrophils # 17.3 H (1.3-7.7) k/uL Lymphocytes # 1.0 (1.0-4.8) k/uL Monocytes # 0.7 (0-1.0) k/uL Eosinophils # 0.2 (0-0.7) k/uL Basophils # 0.0 (0-0.2) k/uL Sodium 143 (137-145) mmol/L Potassium 4.9 (3.5-5.1) mmol/L Chloride 103 (98-107) mmol/L Carbon Dioxide 20 L (22-30) mmol/L Anion Gap 20 mmol/L BUN 8 L (9-20) mg/dL Creatinine 0.80 (0.66-1.25) mg/dL Est GFR (CKD-EPI)AfAm >90 (>60 ml/min/1.73 sqM) Est GFR (CKD-EPI)NonAf >90 (>60 ml/min/1.73 sqM) Glucose 103 H (74-99) mg/dL Calcium 9.3 (8.4-10.2) mg/dL Total Bilirubin 0.3 (0.2-1.3) mg/dL AST 35 (17-59) U/L ALT 26 (21-72) U/L Alkaline Phosphatase 105 (38-126) U/L Total Protein 7.9 (6.3-8.2) g/dL Albumin 4.6 (3.5-5.0) g/dL Valproic Acid 27.3 ug/mL Serum Alcohol <10 mg/dL - Radiology Data Radiology results: image reviewed (Computed tomography scan of the brain and cervical spine reveal no acute process) Disposition Clinical Impression: Seizures Disposition: ADMITTED IP TO THIS [facility] Referrals: Aman Smyth MD [Primary Care Provider] - 1-2 days Decision Time: 00:33
[2017-06-21] MEDS ORDERED: VALPROATE SODIUM 500 MG in SODIUM CHLORIDE 0.9% 50 ML IVPB STA (23:34)
--- NOTE | 2017-06-21 23:54 | CT ---
EXAMINATION TYPE: CT brain [facility] DATE OF EXAM: 06/21/2017 COMPARISON: 07/17/2015 HISTORY: Prior on synapse, pt had seizure activity earlier today, and later this evening he was found having wandered outside in the cold for several hours Neck pain. Headache. CT DLP: 2649.10 mGycm Automated exposure control for dose reduction was used. TECHNIQUE: CT scan of the head and cervical spine are performed without contrast. FINDINGS: There is mild cerebral cortical atrophy. There is no mass effect nor midline shift. There is no sign of intracranial hemorrhage. The calvarium appears intact. Cervical vertebra have normal alignment. There is some spurring of the endplates at C5-6 C6-7. Secondary English Teacher ior elements are intact. Facet joints are intact. Skull base is intact. There is no sign of a fractur e. IMPRESSION: Mild spondylotic change in the lower cervical spine. Mild cerebral atrophy similar to old exam. No acute intracranial abnormality.
[2017-06-22 00:06] LABS: Basophils % (A) 0 %; Eosinophils # (A) 0.2 k/uL (0-0.7); Eosinophils % (A) 1 %; HCT 43.2 % (39.0-53.0); HGB 14.7 gm/dL (13.0-17.5); Lymphocytes % (A) 5 %; MCH 31.3 pg (25.0-35.0); MCV 91.9 fL (80.0-100.0); Mean Platelet Volume 7.1; Monocytes # (A) 0.7 k/uL (0-1.0); Monocytes % (A) 3 %; Neutrophils # (A) 17.3 k/uL (1.3-7.7); Neutrophils % (A) 90 %; Platelet Count 278 k/uL (150-450); RDW 14.5 % (11.5-15.5); WBC 19.2 k/uL (3.8-10.6)
[2017-06-22 00:17] LABS: ALT 26 U/L (21-72); AST 35 U/L (17-59); Albumin 4.6 g/dL (3.5-5.0); Alcohol <10 mg/dL; Alkaline Phosphatase 105 U/L (38-126); Anion Gap 20 mmol/L; Blood Urea Nitrogen 8 mg/dL (9-20); Calcium 9.3 mg/dL (8.4-10.2); Carbon Dioxide 20 mmol/L (22-30); Chloride 103 mmol/L (98-107); Glucose 103 mg/dL (74-99); Potassium 4.9 mmol/L (3.5-5.1); Sodium 143 mmol/L (137-145); Total Bilirubin 0.3 mg/dL (0.2-1.3); Total Protein 7.9 g/dL (6.3-8.2)
[2017-06-22 00:22] LABS: Valproic Acid (Depakene) 27.3 ug/mL
[2017-06-22] MEDS ORDERED: LORazepam 2 MG/ML INJ IV PRN (00:34)
[2017-06-22] MEDS ORDERED: NALOXONE 0.4 MG/ML 1 ML VIAL IV PRN (00:34)
[2017-06-22] MEDS ORDERED: ACETAMINOPHEN TAB 325 MG TAB PO STA ×2 (00:50→22:47)
[2017-06-22] MEDS ORDERED: ENALAPRILAT 1.25 MG/ML 1 ML VIAL IVP STA (01:06)
[2017-06-22] MEDS: lamoTRIgine 100 MG TAB PO SCH ×2 (09:17→22:01)
[2017-06-22] MEDS: levETIRAcetam 500 MG TAB PO SCH ×2 (09:18→22:01)
[2017-06-22] MEDS: DIVALPROEX 250 MG TABLET.DR PO SCH ×2 (09:18→22:01)
[2017-06-22] MEDS: FLUDROCORTISONE 0.1 MG TAB PO SCH ×2 (09:18→22:01)
--- NOTE | 2017-06-22 14:05 | HP ---
HISTORY AND PHYSICAL DATE OF SERVICE: 06/22/2017 CHIEF COMPLAINTS: Fall and possible hypothermia, seizure. HISTORY OF PRESENT ILLNESS: This is a 52-year-old gentleman with a past medical history of multiple medical problems, including CVA, TIA, hypertension, hyperlipidemia, history of seizure disorder being followed by Dr. Smyth in the outpatient setting. Patient apparently had last seizure about a few years ago. Currently, the patient was found in ditch, patient was hypothermic and patient apparently had a seizure disorder prior to that, and the patient left the emergency department, subsequently had anesthesia and patient in total add up to 4 seizures in 2 hours and the patient admitted for further evaluation and treatment. There is no history of fever, no history of rigors. No history of headache, local loss consciousness. PAST MEDICAL HISTORY: History of CVA, hypertension, hyperlipidemia, memory impairment, seizure disorder. MEDICATIONS: Prior to admission include home medications are: 1. Topamax 50 mg p.o. b.i.d. 2. Metoprolol 12.5 mg b.i.d. 3. Keppra 1000 mg p.o. b.i.d. 4. Niacin 500 mg p.o. daily. 5. Florinef 0.1 p.o. b.i.d. 6. Depakote ER 500 mg p.o. b.i.d. 7. Carbatrol 200 mg p.o. b.i.d. 8. Plavix 75 mg q.h.s. 9. Vitamin D3 five thousand units. 10.Lipitor 40 mg q.h.s. 11.Norvasc 5 mg p.o. b.i.d. ALLERGIES: None. FAMILY HISTORY: History of prostate cancer with METS in the family. SOCIAL HISTORY: No history of smoking, no history of alcohol. REVIEW OF SYSTEMS: ENT: No diminished hearing, no diminished vision. CARDIOVASCULAR: No angina. RESPIRATORY: As mentioned earlier. GI: No nausea. : No dysuria. NERVOUS SYSTEM: No numbness or weakness. ALLERGY/IMMUNOLOGY: No asthma or hayfever. MUSCULOSKELETAL: As mentioned earlier. HEMATOLOGY/ONCOLOGY: No history of anemia. ENDOCRINE: No history of diabetes or hypothyroidism. CONSTITUTIONAL: As mentioned earlier. DERMATOLOGY: Negative. RHEUMATOLOGY: Negative. PSYCHIATRY: As mentioned earlier. NEUROLOGY: As mentioned earlier. PHYSICAL EXAM: Patient is alert, oriented times x3. Pulse 78, blood pressure 118/60, respiration 14, temp 98.8, T-max 100.4, pulse ox 97% on room air. HEENT: Conjunctivae normal. Oral mucosa moist. Neck is no jugular venous distention. No carotid bruit. No lymph node enlargement. CARDIOVASCULAR SYSTEM: S1, S2, muffled. RESPIRATORY: Breath sounds diminished at the bases. A few scattered rhonchi. No crackles. ABDOMEN: Soft, nontender. No mass palpable. LEGS: No edema, no swelling. NERVOUS SYSTEM: Higher functions as mentioned earlier. Moves all 4 limbs. No focal motor or sensory deficit. LYMPHATICS: No lymph node enlargement in the neck or axillae. SKIN: No ulcer, rash, bleeding. LABS: At this time shows WBC 19.8, hemoglobin is 14.7, sodium 143, potassium 4.9. Serum alcohol less than 10. ASSESSMENT: 1. Seizures, tonic-clonic, generalized with breakthrough seizures. 2. Increased WBC. 3. History of cerebrovascular accident/transient ischemic attack. 4. Hypertension. 5. Hyperlipidemia. 6. History of memory impairment. 7. History of seizure disorder. 8. History of sleep apnea. 9. History of adenoidectomy. 10.History of tonsillectomy. 11.FULL CODE. RECOMMENDATION: In this 52-year-old gentleman who presented with multiple complex medical issues, will monitor the patient closely, continue with the current management and symptomatic treatment. The patient is on Lamictal and Keppra. Otherwise we will monitor the patient closely. The patient is also having some mild fever. I would recommend a chest x-ray and as well as UA with micro. Repeat labs also will be sought. Otherwise continue to monitor. Will resume the home medications and further recommendations to follow. See orders for further details. A copy of this will be forwarded to Dr. Smyth who is the primary physician. MMODL / IJN: [id number] /
[2017-06-22 15:54] LABS: Appearance,Urine Clear (Clear); Bilirubin,Urine Negative (Negative); Blood,Urine Negative (Negative); Color,Urine Light Yellow; Glucose,Urine (UA) Negative (Negative); Ketones,Urine 1+ (Negative); Leukocyte Esterase,Urine Negative (Negative); Nitrite,Urine Negative (Negative); PH, Urine 5.5 (5.0-8.0); Protein,Urine Negative (Negative); Specific Gravity,Urine 1.008 (1.001-1.035); Urobilinogen,Urine <2.0 mg/dL (<2.0)
[2017-06-22 16:01] LABS: Amphetamine Screen,Urine Not Detected (NotDetected); Barbiturate Screen,Urine Not Detected (NotDetected); Benzodiazepines Screen,Urine Detected (NotDetected); Cocaine Screen,Urine Not Detected (NotDetected); Methadone Screen, Urine Not Detected (NotDetected); Opiate Screen,Urine Not Detected (NotDetected); Oxycodone Screen, Urine Not Detected (NotDetected); Phencyclidine Screen,Urine Not Detected (NotDetected); Tricyclic Antidepressant,Urine Not Detected (NotDetected); Urn Cannabinoid Scrn Not Detected (NotDetected)
[2017-06-22] MEDS: HEPARIN SODIUM,PORCINE 5,000 UNIT/ML 1 ML VIAL SQ SCH ×2 (17:18→22:00)
--- NOTE | 2017-06-22 18:56 | EEG ---
ELECTROENCEPHALOGRAM REPORT DATE OF SERVICE: 06/22/2017. REASON FOR TESTING: Seizures. CURRENT ANTIEPILEPTIC MEDICATIONS: 1. Keppra. 2. Lamictal. 3. Depakote. DESCRIPTION OF THE PROCEDURE: This EEG was performed using a 21 channel digital electroencephalograph, following international 10-20 system. DESCRIPTION OF THE RECORDING: From the beginning of the tracing and with patient's eyes closed, the background rhythm was mostly consisting of 8 Hz alpha frequency in the posterior occipital leads. No obvious asymmetry is seen. Rare movement and muscle artifacts are seen. Photic stimulation was performed with a minimal driving response seen. No pathological waves were elicited. Hyperventilation was performed with no buildup of amplitude seen. Again, no pathological waves were elicited. The patient remains awake throughout the tracing. No epileptiform discharges were seen. His EKG lead showed a regular rate and rhythm. INTERPRETATION: This awake EEG can be considered within normal limits. There was no asymmetry seen. No epileptiform discharges were noticed. The absence of epileptiform discharges does not rule out the diagnosis of epilepsy; therefore, clinical correlation is recommended. CAIO / SHARIN: [id number] / TERESA
[2017-06-22] MEDS: CLOPIDOGREL 75 MG TAB PO SCH (22:00)
[2017-06-22] MEDS: METOPROLOL TARTRATE 12.5 MG TAB PO SCH (22:00)
[2017-06-22] MEDS: ATORVASTATIN 40 MG TAB PO SCH (22:01)
[2017-06-22] MEDS: amLODIPine 5 MG TAB PO SCH (22:01)
[2017-06-22] MEDS: carBAMazepine 300 MG CPMP.12HR PO SCH (22:02)
[2017-06-23 07:37] LABS: Basophils % (A) 0 %; Eosinophils % (A) 0 %; HCT 36.9 % (39.0-53.0); HGB 12.9 gm/dL (13.0-17.5); Lymphocytes # (A) 2.4 k/uL (1.0-4.8); Lymphocytes % (A) 37 %; MCH 31.8 pg (25.0-35.0); MCHC 34.9 g/dL (31.0-37.0); MCV 91.1 fL (80.0-100.0); Mean Platelet Volume 7.2; Monocytes # (A) 0.5 k/uL (0-1.0); Monocytes % (A) 7 %; Neutrophils # (A) 3.5 k/uL (1.3-7.7); Neutrophils % (A) 53 %; Platelet Count 224 k/uL (150-450); RBC 4.05 m/uL (4.30-5.90); RDW 14.5 % (11.5-15.5); WBC 6.5 k/uL (3.8-10.6)
[2017-06-23 08:18] LABS: ALT 26 U/L (21-72); AST 38 U/L (17-59); Albumin 3.6 g/dL (3.5-5.0); Alkaline Phosphatase 78 U/L (38-126); Anion Gap 9 mmol/L; Blood Urea Nitrogen 10 mg/dL (9-20); Calcium 8.7 mg/dL (8.4-10.2); Carbon Dioxide 28 mmol/L (22-30); Chloride 106 mmol/L (98-107); Glucose 81 mg/dL (74-99); Potassium 3.8 mmol/L (3.5-5.1); Sodium 143 mmol/L (137-145); Total Bilirubin 0.4 mg/dL (0.2-1.3); Total Protein 6.3 g/dL (6.3-8.2)
--- NOTE | 2017-06-23 08:27 | XR ---
EXAMINATION TYPE: XR chest 1V portable DATE OF EXAM: 06/23/2017 COMPARISON: 04/23/2017. HISTORY: Seizure. History of congestive heart failure. TECHNIQUE: Single frontal view of the chest is obtained. FINDINGS: A vagus nerve stimulator is seen in the left. This partially obscures the left midlung. Ri ght minor fissure is mildly more pronounced on the prior exam. Remainder the lungs are clear. Cardiom ediastinal silhouette is within normal limits. Azygos fissure is incidentally identified with pleural thickening at the medial right lung apex. Osseous structures are intact. IMPRESSION: No acute cardiopulmonary process. No radiographic sequela of congestive heart failure.
[2017-06-23] MEDS: HEPARIN SODIUM,PORCINE 5,000 UNIT/ML 1 ML VIAL SQ SCH ×2 (09:22→21:15)
[2017-06-23] MEDS: METOPROLOL TARTRATE 12.5 MG TAB PO SCH ×2 (09:23→21:15)
[2017-06-23] MEDS: amLODIPine 5 MG TAB PO SCH ×2 (09:23→21:16)
[2017-06-23] MEDS: carBAMazepine 300 MG CPMP.12HR PO SCH ×2 (09:23→21:15)
[2017-06-23] MEDS: DIVALPROEX 250 MG TABLET.DR PO SCH ×2 (09:23→21:15)
[2017-06-23] MEDS: levETIRAcetam 500 MG TAB PO SCH ×2 (09:23→21:16)
[2017-06-23] MEDS: lamoTRIgine 100 MG TAB PO SCH ×2 (09:24→21:15)
[2017-06-23] MEDS: NIACIN TR 500 MG CAPSULE.ER PO SCH ×2 (09:24→09:25)
[2017-06-23] MEDS: FLUDROCORTISONE 0.1 MG TAB PO SCH ×2 (09:26→21:16)
--- NOTE | 2017-06-23 10:06 | CONS ---
CONSULTATION DATE OF CONSULTATION: 06/22/2017. CHIEF COMPLAINT: Seizures. HISTORY OF PRESENT ILLNESS: Mr. Navarrete is a pleasant 52-year-old, male, who is being evaluated by the neurology service today on 06/22/2017 per the request of Dr. Licona for uncontrolled seizures. The patient has a long-standing history of uncontrolled seizures and had been placed on multiple antiepileptic medications with continued frequent breakthrough seizures. More recently, he had a vagal nerve stimulator implantation which has somewhat reduced his breakthrough seizures but did not eliminate them. He was initially brought into [facility] a couple of days ago after he had 2 breakthrough seizures at home. At home, he is on Keppra, Depakote and carbamazepine. His Depakote level was found to be borderline therapeutic at 54. He was given a 500 mg bolus and discharged home. According to the family, he was dropped off by his mother at his in-laws house but they were not home. He did have access to the house in. When the family went to check up on him a couple of hours later, he was not inside the house. After a long search, he was found on the property unconscious. EMS was called and he was transferred to [facility] Emergency Room. His temperature was stable in the emergency room. He did not have any further seizure-like activity after arrival. The patient's Depakote dose was increased to 750 mg b.i.d. and he was admitted for further management. At the time of my evaluation, the patient is back to his baseline. He states that he does remember being dropped off at his in-laws house, but does not recall anything after that. His CT scan of the brain showed no acute findings but there was generalized atrophy seen. His CBC showed leukocytosis at 19.2. His comprehensive metabolic profile and urinalysis were normal. His Tegretol level was therapeutic at 11.3. I did review his EEG from today which was normal. The patient denies any lateralizing numbness or weakness. He is complaining of a mild headache that is mostly in the occipital region. He did have a slight fever at 100.4 very early this morning, but his temperature is 98.9 at the time of my evaluation. PAST MEDICAL HISTORY: Seizure disorder, recent vagal nerve stimulator implantation, history of transient ischemic attacks, dyslipidemia, hypertension, obstructive sleep apnea, stroke, borderline diabetes, history of adenoidectomy and tonsillectomy. SOCIAL HISTORY: He denies any tobacco, alcohol or drug use. FAMILY HISTORY: Positive for cancer. HOME MEDICATIONS: Reviewed in the chart. ALLERGIES: No known drug allergies. REVIEW OF SYSTEMS: CONSTITUTIONAL: Positive for fatigue. EYES: Negative. ENT: Negative. CARDIOVASCULAR: Negative. RESPIRATORY: Negative. NEUROLOGICAL: As mentioned above. GASTROINTESTINAL: Negative. GENITOURINARY: Negative. PSYCHIATRIC: Negative. MUSCULOSKELETAL: Negative. ENDOCRINE: Positive for borderline diabetes. DERMATOLOGICAL: Negative. PHYSICAL EXAM: Vital signs show a temperature of 98.9, pulse 78, respiration 14, blood pressure 118/69. GENERAL APPEARANCE: The patient is a well-developed male, who appears to be in no acute distress. HEENT: Normocephalic, atraumatic, no facial asymmetry is seen, mild tenderness to palpation is felt along bilateral greater occipital nerve regions. NECK: Supple with no masses felt. CARDIOVASCULAR: Regular rate and rhythm. ABDOMEN: Nontender, nondistended. Extremities showed no edema or clubbing. NEUROLOGICAL EXAM: The patient is alert, aware and oriented x3. Speech and language are normal. Strength is full in all 4 extremities. Sensory exam was normal to light touch in all 4 extremities. No facial asymmetry seen on cranial nerve testing. No tremors or seizure-like activity is seen. IMPRESSION: 1. Uncontrolled seizures. 2. Borderline therapeutic Depakote level. 3. Leukocytosis. 4. Altered mental status, resolved. 5. RECOMMENDATION: The patient has been having breakthrough seizures as mentioned above. His Depakote dose was recently increased yesterday to 750 mg b.i.d. A repeat Depakote level is scheduled for tonight and further recommendations will be done at that time. I did review his EEG which showed no epileptiform discharges. A repeat CBC is scheduled for the morning. Continue the rest of his home doses of antiepileptic medications. As for his leukocytosis, I do recommend further workup and management. He also had a slight fever overnight but he is afebrile at the time of my evaluation. I do recommend an infectious disease consultation. Continue the rest of your current workup and management. I will continue to follow with you. Further recommendations to follow. Thank you for allowing me to participate in the care of your patient. If you have any questions, please feel free to contact me. MMODL / IJN: [id number] /
[2017-06-23] MEDS: CHOLECALCIFEROL 1,000 UNIT TAB PO SCH (13:16)
--- NOTE | 2017-06-23 13:57 | PN ---
PROGRESS NOTE DATE OF SERVICE: 06/23/2017 This 52-year-old gentleman admitted with recurrent seizures and hypothermia is being closely monitored. No chest pain. No palpitations. No fever. The patient is still complaining of some weakness. PHYSICAL EXAM: Alert and oriented x3. The pulse is 78, blood pressure 141/91, respirations 16, temperature 98.2, pulse ox 94% on room air. HEENT: Conjunctivae normal. NECK: No jugular venous distension. CARDIOVASCULAR: S1, S2, muffled. RESPIRATORY: Breath sounds diminished at the bases, no rhonchi, no crackles. Abdomen is soft, nontender. No mass palpable. LEGS: No edema, no swelling. NERVOUS SYSTEM: Mild diffuse weakness. LABS: WBC is 6.5, hemoglobin is 12.8. UA noted. Alcohol less than 10. ASSESSMENT: 1. Seizure, tonic-clonic generalized with breakthrough seizures. 2. Increased WBC. 3. History of cerebrovascular accident/transient ischemic attack. 4. Hypertension. 5. Hyperlipidemia. 6. History of memory impairment. 7. History of seizure disorder. 8. History of sleep apnea. 9. History of adenoidectomy. 10.History of tonsillectomy. 11.FULL CODE. RECOMMENDATION: In this 52-year-old gentleman presented with multiple medical problems, will monitor the patient closely, continue the current symptomatic treatment. PT, OT evaluation. Increase ambulation. Otherwise, guarded prognosis. Further recommendation to follow. MMODL / IJN: [id number] /
[2017-06-23] MEDS: ACETAMINOPHEN TAB 325 MG TAB PO PRN ×2 (15:25→21:24)
--- NOTE | 2017-06-23 15:27 | P.PN ---
Subjective Progress Note Date: 06/23/17 Principal diagnosis: Seizures Was a pleasant 52-year-old male continuing to be evaluated by the neurology service for uncontrolled seizures. He is on multiple antiepileptic medications and has recently implanted vagal nerve stimulator. He recently had 2 breakthrough seizures. Unfortunately with this one he was found outside unconscious in the cold. EMS was called and transferred him to the [facility] emergency room. He has had no further seizures since arrival. His Depakote was adjusted up to 750 mg twice a day. He also continues to be on Tegretol, Keppra and Lamictal. At the time of my exam he is resting comfortably in bed. He is a little bit tired and has a mild headache but otherwise neurologically he is back to his baseline. Earlier today a colleague wasn't to interrogate and adjust his vagal nerve stimulator. Objective - Vital Signs Vital signs: Vital Signs Temp 98.2 F 06/23/17 14:37 Pulse 83 06/23/17 14:37 Resp 15 06/23/17 14:37 BP 136/86 06/23/17 14:37 Pulse Ox 96 06/23/17 14:37 Intake & Output 06/22/17 06/23/17 06/23/17 18:59 06:59 18:59 Intake Total 2156 Output Total 400 1080 Balance -400 1076 Intake: Intake, IV Titration 1026 Amount Sodium Chloride 0.9% 1, 1026 000 ml @ 100 mls/hr IV . Q10H STA Rx#:[id number] Oral 1130 Output: Urine 400 1080 Other: # Voids 1 2 3 - Constitutional General appearance: Present: average body habitus, cooperative, no acute distress - EENT Eyes: Present: EOMI, PERRLA. Absent: abnormal pupil, ptosis ENT: Present: hearing grossly normal - Neck Neck: Present: normal ROM. Absent: rigidity - Respiratory Respiratory: negative: prolonged expiration, prolonged inspiration - Cardiovascular Rhythm: regular - Gastrointestinal General gastrointestinal: Absent: distended, tenderness - Neurologic Neurologic Comment(s): Is alert awake and oriented 3. Speech-language are normal. There is no facial asymmetry. Strength is full in bilateral upper lower extremities. No tremors or seizure-like activities are seen. - Labs CBC & Chem 7: 06/23/17 06:59 06/23/17 06:59 Labs: Abnormal Lab Results - Last 24 Hours (Table) 06/22/17 06/23/17 06/23/17 Range/Units 15:44 06:59 13:32 RBC 4.05 L (4.30-5.90) m/uL Hgb 12.9 L (13.0-17.5) gm/dL Hct 36.9 L (39.0-53.0) % Creatine Kinase 842 H (55-170) U/L Urine Ketones 1+ H (Negative) U Benzodiazepines Scrn Detected H (NotDetected) Assessment and Plan (1) Leukocytosis, unspecified Current Visit: Yes Status: Resolved Code(s): D72.829 - ELEVATED WHITE BLOOD CELL COUNT, UNSPECIFIED SNOMED Code(s): 648194001 (2) Altered mental status Current Visit: Yes Status: Resolved Code(s): R41.82 - ALTERED MENTAL STATUS , UNSPECIFIED SNOMED Code(s): 710787525 (3) 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 His Depakote dose was increased and his vagal nerve stimulator adjusted. He has had no further seizure activity. His EEG showed no epileptiform discharges. Continue the rest your workup. He is cleared for discharge from a neurological standpoint we will follow him up in the office in about a week. I have performed a history and physical on the above patient. I have reviewed the above note, and agree.
[2017-06-23] MEDS: ATORVASTATIN 40 MG TAB PO SCH (21:15)
[2017-06-23] MEDS: CLOPIDOGREL 75 MG TAB PO SCH (21:16)
--- NOTE | 2017-06-24 04:47 | P.PN ---
Subjective Progress Note Date: 06/23/17 Principal diagnosis: Seizure- VNS Interrogation Patient was hospitalized at [facility] and I was requested to interrogate his vagal nerve stimulator (VNS). The patient was supine in bed resting in no acute distress. He stated that approximately 1 week prior to hospitalization he missed /canceled his OV with me to reassess his stimulator. He states that he began having breakthrough seizure about 1 per day for the last week. Patient was noted to have subtherapeutic level(s) of his AED meds as well. Objective - Vital Signs Vital signs: Vital Signs Temp 97.4 F L 06/24/17 01:04 Pulse 72 06/24/17 01:04 Resp 16 06/24/17 01:04 BP 130/82 06/24/17 01:04 Pulse Ox 96 06/24/17 01:04 Intake & Output 06/23/17 06/23/17 06/24/17 06:59 18:59 06:59 Intake Total 2156 Output Total 1080 300 Balance 1076 -300 Intake: Intake, IV Titration 1026 Amount Sodium Chloride 0.9% 1, 1026 000 ml @ 100 mls/hr IV . Q10H STA Rx#:[id number] Oral 1130 Output: Urine 1080 300 Other: Voiding Method Urinal # Voids 2 3 2 - Constitutional General appearance: Present: cooperative - Labs CBC & Chem 7: 06/23/17 06:59 06/23/17 06:59 Labs: Abnormal Lab Results - Last 24 Hours (Table) 06/23/17 06/23/17 Range/Units 06:59 13:32 RBC 4.05 L (4.30-5.90) m/uL Hgb 12.9 L (13.0-17.5) gm/dL Hct 36.9 L (39.0-53.0) % Creatine Kinase 842 H (55-170) U/L Assessment and Plan (1) Status post VNS (vagus nerve stimulator) placement Current Visit: Yes Status: Chronic Code(s): Z96.89 - PRESENCE OF OTHER SPECIFIED FUNCTIONAL IMPLANTS SNOMED Code(s): 586922596 (2) Seizures Current Visit: Yes Status: Chronic Code(s): R56.9 - UNSPECIFIED CONVULSIONS SNOMED Code(s): 61391929 Plan: Implant Date: 08/14/16 Model # 106 Serial # [id number] Current (mA) .75 1.0 Frequency (hz) 20 20 Pulse Width (microseconds) ` 130 130 On Time (Sec) 30 30 Off Time (Min) 5 5 Magnet Current (mA) 1.0 1.25 Magnet Pulse Width (microseconds) 250 250 Magnet On Time (Sec) 60 60 Auto Stim Current (mA) .875 1.125 Auto Stim Pulse Width (microseconds) 130 130 Auto Stim On Time (Sec) 60 60 Pre op Diagnostics-Ok ok mA DcDc/ohms In Op Diagnostics- Ok ok mA ohms ohms Heart Beat Sensitivity 2 BPM Tachycardia ON Implant Code: 79612 [id number] Programming Code: 69494 Disposition: Patient was in no acute distress after reprogramming. The patient is to contact the office patient has any questions or concerns. Patient's device was interrogated and working properly. Patient had breakthrough seizure noted at initial interrogation. Adjustments as noted above. Patient to follow up in 1 week for VNS reprogramming and interrogation. Procedure was done by LAMAR Smith, under my supervision. Shana Walsh M.D. Neurology - Board Certified Diplomat of [employer], Member of [employer]
[2017-06-24 06:48] LABS: Basophils % (A) 0 %; Eosinophils % (A) 0 %; HCT 38.4 % (39.0-53.0); HGB 13.2 gm/dL (13.0-17.5); Lymphocytes # (A) 2.4 k/uL (1.0-4.8); Lymphocytes % (A) 46 %; MCHC 34.2 g/dL (31.0-37.0); MCV 90.6 fL (80.0-100.0); Mean Platelet Volume 7.5; Monocytes # (A) 0.5 k/uL (0-1.0); Monocytes % (A) 9 %; Neutrophils # (A) 2.2 k/uL (1.3-7.7); Neutrophils % (A) 41 %; Platelet Count 217 k/uL (150-450); RBC 4.24 m/uL (4.30-5.90); RDW 14.6 % (11.5-15.5); WBC 5.2 k/uL (3.8-10.6)
[2017-06-24 07:15] LABS: ALT 18 U/L (21-72); AST 32 U/L (17-59); Albumin 3.6 g/dL (3.5-5.0); Alkaline Phosphatase 72 U/L (38-126); Anion Gap 9 mmol/L; Blood Urea Nitrogen 10 mg/dL (9-20); Calcium 9.1 mg/dL (8.4-10.2); Carbon Dioxide 30 mmol/L (22-30); Chloride 105 mmol/L (98-107); Creatine Kinase 565 U/L (55-170); Glucose 84 mg/dL (74-99); Potassium 3.9 mmol/L (3.5-5.1); Sodium 144 mmol/L (137-145); Total Bilirubin 0.3 mg/dL (0.2-1.3); Total Protein 6.5 g/dL (6.3-8.2)
[2017-06-24 07:43] VITALS: BP 148/92; PULSE 77; RESP 14; TEMP 97.9
[2017-06-24] MEDS: HEPARIN SODIUM,PORCINE 5,000 UNIT/ML 1 ML VIAL SQ SCH (08:32)
[2017-06-24] MEDS: METOPROLOL TARTRATE 12.5 MG TAB PO SCH (08:32)
[2017-06-24] MEDS: NIACIN TR 500 MG CAPSULE.ER PO SCH (08:32)
[2017-06-24] MEDS: levETIRAcetam 500 MG TAB PO SCH (08:32)
[2017-06-24] MEDS: carBAMazepine 300 MG CPMP.12HR PO SCH (08:32)
[2017-06-24] MEDS: amLODIPine 5 MG TAB PO SCH (08:32)
[2017-06-24] MEDS: lamoTRIgine 100 MG TAB PO SCH (08:32)
[2017-06-24] MEDS: DIVALPROEX 250 MG TABLET.DR PO SCH (08:32)
[2017-06-24] MEDS: FLUDROCORTISONE 0.1 MG TAB PO SCH (08:32)
[2017-06-24] MEDS: CHOLECALCIFEROL 1,000 UNIT TAB PO SCH (11:06)
[2017-06-24] MEDS ORDERED: FOLIC ACID 1 MG TAB PO SCH (12:00)
[2017-06-24] MEDS ORDERED: MULTIVITAMINS, THERA 1 EACH TAB PO SCH (12:00)
[2017-06-24] MEDS ORDERED: THIAMINE 100 MG TAB PO SCH (12:00)
--- NOTE | 2017-06-25 06:38 | DS ---
DISCHARGE SUMMARY DATE OF ADMISSION: 06/22/17 DATE OF DISCHARGE: 06/24/17. FINAL DIAGNOSES: 1. Breakthrough recurrent seizure/epilepsy. 2. Coronary artery disease. 3. Essential hypertension. 4. Vagus nerve stimulator in place. HOSPITAL COURSE: This patient was found outside in the cold, felt by neurology to be seizure activity. The patient's Depakote level was adjusted. The patient had no further episodes. The patient also had vagal nerve stimulator looked at by Dr. Walsh's team. The patient is now doing well, up and about to the bathroom. Tolerating a diet. Patient's EEG otherwise was unremarkable. EXAM: Lungs are clear. Cardiovascular: First and second sounds normal. Care was discussed with the patient and his sister at the bedside. CONSULTATION: Dr. Walsh from Neurology. DC MEDICATIONS: 1. Florinef 0.1 mg p.o. b.i.d. 2. Vitamin D3 5000 units p.o. daily. 3. Plavix 75 mg p.o. q.h.s. 4. Lipitor 40 mg q.h.s. 5. Metoprolol 12.5 p.o. b.i.d. 6. Norvasc 5 mg p.o. b.i.d. 7. Carbamazepine 300 mg q.12. 8. Keppra 1000 mg p.o. q.12. 9. Depakote 750 mg b.i.d. 10.Folic acid 1 mg p.o. daily. 11.Multivitamin 1 tab p.o. daily. 12.Thiamine 100 mg p.o. daily. 13.Lamictal 100 mg p.o. b.i.d. Follow up with [facility] in 1 week, Dr. Smyth on 06/25/2017. Additionally, seizure precautions and no driving until further notice. MMODL / IJN: [id number] /
== END 2017-06-24 13:10 | disposition home or self-care (01) | DRG 101 ==
LOC: EC 22:45 → 3SUR 06-22 00:34
PROVIDERS: ADMIT Hospitalist; ATTEND Hospitalist
DX: G40.909 Epilepsy, unspecified, not intractable, without status epilepticus (principal); D72.829 Elevated white blood cell count, unspecified; E78.5 Hyperlipidemia, unspecified; G47.33 Obstructive sleep apnea (adult) (pediatric); I10 Essential (primary) hypertension; I25.10 Atherosclerotic heart disease of native coronary artery without angina pectoris; Z86.73 Personal history of transient ischemic attack (TIA), and cerebral infarction without residual deficits; Z79.02 Long term (current) use of antithrombotics/antiplatelets; Z79.899 Other long term (current) drug therapy
CPT/HCPCS: 36415; 70450; 71045; 72125; 80053; 80156; 80164; 80306; 80320; 81003; 82550; 85025; 93005; 95819; 96361; 96365; 96366; 96375; 99285

== ENCOUNTER → 2017-07-06 | Outpatient (CLI) | payer OTHER, MEDICARE | END | disposition home or self-care (01) | LOC: LABWHC1 08:06 | PROVIDERS: ATTEND Psychiatry & Neurology Pain Medicine | DX: G40.211 Localization-related (focal) (partial) symptomatic epilepsy and epileptic syndromes with complex partial seizures, intractable, with status epilepticus (principal) | CPT/HCPCS: 36415; 80164 ==

== ENCOUNTER 2018-05-26 17:55 | Emergency (ER) | payer OTHER, MEDICARE ==
[2018-05-26 18:17] LABS: Glucose,Whole Blood 92 mg/dL (75-99)
[2018-05-26 18:26] LABS: Basophils % (A) 0 %; Eosinophils # (A) 0.1 k/uL (0-0.7); Eosinophils % (A) 1 %; HCT 44.8 % (39.0-53.0); HGB 14.8 gm/dL (13.0-17.5); Lymphocytes # (A) 1.2 k/uL (1.0-4.8); Lymphocytes % (A) 14 %; MCH 30.6 pg (25.0-35.0); MCHC 33.1 g/dL (31.0-37.0); MCV 92.6 fL (80.0-100.0); Mean Platelet Volume 7.9; Monocytes # (A) 0.6 k/uL (0-1.0); Monocytes % (A) 6 %; Neutrophils % (A) 78 %; Platelet Count 208 k/uL (150-450); RBC 4.84 m/uL (4.30-5.90); RDW 13.9 % (11.5-15.5)
--- NOTE | 2018-05-26 18:32 | ED ---
General Adult HPI - General Chief complaint: Neuro Symptoms/Deficit Stated complaint: poss stroke Time Seen by Provider: 05/26/18 18:02 Source: patient Mode of arrival: ambulatory Limitations: no limitations - History of Present Illness Initial comments: Dictation was produced using [employer] dictation software. please excuse any grammatical, word or spelling errors. Chief Complaint: Patient is 53-year-old male past medical history of seizures, CVA presents after acute onset dizziness, possible seizure and fall History of Present Illness: This is 53-year-old male past medical history of seizure disorder, CVA presents after fall. Patient called EMS. Patient was at home when he was at approximately the second step from the ground. States that experienced a significant episode of dizziness and weakness. Which caused him to fall to the ground. Patient states that he does have a history of seizures that have been managed by a neurologist. Patient takes Lamictal, Depakote and Keppra. Patient reports generalized weakness. Denies any dizziness at this time. The ROS documented in this emergency department record has been reviewed and confirmed by me. Those systems with pertinent positive or negative responses have been documented in the HPI. All other systems are other negative and/or noncontributory. PHYSICAL EXAM: General Impression: Alert and oriented x3, not in acute distress, shaky HEENT: Normocephalic atraumatic, extra-ocular movements intact, pupils equal and reactive to light bilaterally, mucous membranes moist. Cardiovascular: Heart regular rate and rhythm, S1&S2 audible, no murmurs, rubs or gallops Chest: Lungs clear to auscultation bilaterally, no rhonchi, no wheeze, no rales Abdomen: Bowel sounds present, abdomen soft, non-tender, non-distended, no organomegaly Musculoskeletal: Pulses present and equal in all extremities, no peripheral edema Motor: no focal deficits noted Neurological: CN II-XII grossly intact, no focal motor or sensory deficits noted Skin: Intact with no visualized rashes Psych: Normal affect and mood ED course: 53-year-old male presents after fall. As upon arrival shows blood pressure 183/114. No focal neurologic findings to suggest CVA at this time.Laboratory evaluation obtained. CBC, metabolic panel is unremarkable. Urinalysis negative. Rapid urine drug screen is negative. Physical examination is benign. No clonus to the lower extremities. Patient has no drift of the lower extremities. Patient was attempted to ambulate however he appears fairly ataxic in his bilateral lower extremities. Patient is showing very poor effort to ambulate. He has good pulses to the bilateral lower extremities. Is tolerating by mouth and urinating without complications. CT of the head and C-spine shows no acute processes. Chest x-ray negative. Patient had a similar episode in April of last year. He does have a history of vagal nerve stimulator. Chart review shows that he had a similar episode like this in April of last year. Patient given antivertigo medication, fluids. Still is patient is having difficulty walking. Given that we do not have neurology here at our facility we will transfer to [facility] or his neurologist currently practices. Dr. Call is accepting physician for urinary transfer at [facility]. EKG interpretation: Ventricular rate 99, normal sinus rhythm,. Interval 176, QS 80, QTc 456. No MA prolongation, no QTC prolongation, no ST or T-wave changes noted. Overall, this EKG is unremarkable - Related Data Home Medications Medication Instructions Recorded Confirmed Fludrocortisone [Florinef] 0.1 mg PO BID 07/17/15 05/26/18 Cholecalciferol [Vitamin D3] 5,000 unit PO DAILY@1200 07/29/15 05/26/18 Clopidogrel [Plavix] 75 mg PO HS 03/16/17 05/26/18 Atorvastatin [Lipitor] 40 mg PO HS 06/22/17 05/26/18 amLODIPine [Norvasc] 5 mg PO HS 06/22/17 05/26/18 levETIRAcetam [Keppra] 1,000 mg PO BID 06/22/17 05/26/18 Divalproex ER [Depakote ER] 500 mg PO BID 05/26/18 05/26/18 Divalproex Sodium [Depakote ER] 250 mg PO BID 05/26/18 05/26/18 Multivitamins, Thera [Multivitamin 1 tab PO DAILY@1200 05/26/18 05/26/18 (formulary)] Niacin(Flush Free) 500mg 500 mg PO BID 05/26/18 05/26/18 carBAMazepine [Carbamazepine ER] 300 mg PO BID 05/26/18 05/26/18 Previous Rx's Medication Instructions Recorded Folic Acid 1 mg PO DAILY@1200 #30 tab 06/24/17 Thiamine [Vitamin B-1] 100 mg PO DAILY@1200 #30 tab 06/24/17 lamoTRIgine [LaMICtal] 100 mg PO BID #60 tab 06/24/17 Allergies Allergy/AdvReac Type Severity Reaction Status Date / Time No Known Allergies Allergy Verified 05/26/18 18:42 Review of Systems ROS Statement: Those systems with pertinent positive or pertinent negative responses have been documented in the HPI. ROS Other: All systems not noted in ROS Statement are negative. Past Medical History Past Medical History: CVA/TIA, Hyperlipidemia, Hypertension, Memory Impairment, Seizure Disorder, Sleep Apnea/CPAP/BIPAP Additional Past Medical History / Comment(s): PT STATES CVA & TIA STATES some slight residual left sided weakness, STATES BORDERLINE DIABETES. PAST HX OF SLEEP APNEA , VAGUS NERVE STIMULATOR- August 2016. History of Any Multi-Drug Resistant Organisms: None Reported Past Surgical History: Adenoidectomy, Tonsillectomy Additional Past Surgical History / Comment(s): TUBES IN EARS, VAGUS NERVE STIMULATOR FOR SEIZURES. Past Anesthesia/Blood Transfusion Reactions: Previous Problems w/ Anesthesia Additional Past Anesthesia/Blood Transfusion Reaction / Comment(s): STATES A LONG TIME TO WAKE UP AFTER ANESTHESIA. Past Psychological History: No Psychological Hx Reported Smoking Status: Never smoker Past Alcohol Use History: None Reported Past Drug Use History: None Reported - Past Family History Father Family Medical History: No Reported History Mother Family Medical History: No Reported History Brother(s) Family Medical History: Cancer Additional Family Medical History / Comment(s): PROSTATE CANCER WITH METS. General Exam Limitations: no limitations Course Vital Signs 05/26/18 05/26/18 05/26/18 17:56 19:15 19:20 Pulse Rate 97 88 84 Respiratory 20 18 18 Rate Blood Pressure 183/114 188/106 160/107 O2 Sat by Pulse 98 97 Oximetry 05/26/18 20:33 Pulse Rate 74 Respiratory 18 Rate Blood Pressure 154/98 O2 Sat by Pulse 97 Oximetry Medical Decision Making - Lab Data Result diagrams: 05/26/18 18:00 05/26/18 18:00 Lab Results 05/26/18 05/26/18 05/26/18 Range/Units 18:00 18:00 18:00 WBC 9.0 (3.8-10.6) k/uL RBC 4.84 (4.30-5.90) m/uL Hgb 14.8 (13.0-17.5) gm/dL Hct 44.8 (39.0-53.0) % MCV 92.6 (80.0-100.0) fL MCH 30.6 (25.0-35.0) pg MCHC 33.1 (31.0-37.0) g/dL RDW 13.9 (11.5-15.5) % Plt Count 208 (150-450) k/uL Neutrophils % 78 % Lymphocytes % 14 % Monocytes % 6 % Eosinophils % 1 % Basophils % 0 % Neutrophils # 7.0 (1.3-7.7) k/uL Lymphocytes # 1.2 (1.0-4.8) k/uL Monocytes # 0.6 (0-1.0) k/uL Eosinophils # 0.1 (0-0.7) k/uL Basophils # 0.0 (0-0.2) k/uL Sodium 140 (137-145) mmol/L Potassium 4.0 (3.5-5.1) mmol/L Chloride 103 (98-107) mmol/L Carbon Dioxide 26 (22-30) mmol/L Anion Gap 11 mmol/L BUN 13 (9-20) mg/dL Creatinine 1.03 (0.66-1.25) mg/dL Est GFR (CKD-EPI)AfAm >90 (>60 ml/min/1.73 sqM) Est GFR (CKD-EPI)NonAf 84 (>60 ml/min/1.73 sqM) Glucose 95 (74-99) mg/dL POC Glucose (mg/dL) (75-99) mg/dL POC Glu Mechanical Cad Drafter ID Plasma Lactic Acid Amrit (0.7-2.0) mmol/L Calcium 9.5 (8.4-10.2) mg/dL Magnesium 1.7 (1.6-2.3) mg/dL Total Bilirubin 0.5 (0.2-1.3) mg/dL AST 29 (17-59) U/L ALT 31 (21-72) U/L Alkaline Phosphatase 85 (38-126) U/L Creatine Kinase 141 (55-170) U/L Troponin I (0.000-0.034) ng/mL Total Protein 7.6 (6.3-8.2) g/dL Albumin 4.7 (3.5-5.0) g/dL Lipase 128 (23-300) U/L Urine Color Urine Appearance (Clear) Urine pH (5.0-8.0) Ur Specific [place] (1.001-1.035) Urine Protein (Negative) Urine Glucose (UA) (Negative) Urine Ketones (Negative) Urine Blood (Negative) Urine Nitrite (Negative) Urine Bilirubin (Negative) Urine Urobilinogen (<2.0) mg/dL Ur Leukocyte Esterase (Negative) Urine Opiates Screen (NotDetected) Ur Oxycodone Screen (NotDetected) Urine Methadone Screen (NotDetected) Ur Propoxyphene Screen (NotDetected) Ur Barbiturates Screen (NotDetected) U Tricyclic Antidepress (NotDetected) Ur Phencyclidine Scrn (NotDetected) Ur Amphetamines Screen (NotDetected) U Methamphetamines Scrn (NotDetected) U Benzodiazepines Scrn (NotDetected) Urine Cocaine Screen (NotDetected) U Marijuana (THC) Screen (NotDetected) Blood Type A Positive Blood Type Confirm Blood Type Recheck CABO Indicated Antibody Screen NEGATIVE Spec Expiration Date 05/29/2018 - 229905/26/18 05/26/18 05/26/18 Range/Units 18:00 18:03 18:54 WBC (3.8-10.6) k/uL RBC (4.30-5.90) m/uL Hgb (13.0-17.5) gm/dL Hct (39.0-53.0) % MCV (80.0-100.0) fL MCH (25.0-35.0) pg MCHC (31.0-37.0) g/dL RDW (11.5-15.5) % Plt Count (150-450) k/uL Neutrophils % % Lymphocytes % % Monocytes % % Eosinophils % % Basophils % % Neutrophils # (1.3-7.7) k/uL Lymphocytes # (1.0-4.8) k/uL Monocytes # (0-1.0) k/uL Eosinophils # (0-0.7) k/uL Basophils # (0-0.2) k/uL Sodium (137-145) mmol/L Potassium (3.5-5.1) mmol/L Chloride (98-107) mmol/L Carbon Dioxide (22-30) mmol/L Anion Gap mmol/L BUN (9-20) mg/dL Creatinine (0.66-1.25) mg/dL Est GFR (CKD-EPI)AfAm (>60 ml/min/1.73 sqM) Est GFR (CKD-EPI)NonAf (>60 ml/min/1.73 sqM) Glucose (74-99) mg/dL POC Glucose (mg/dL) 92 (75-99) mg/dL POC Glu Mechanical Cad Drafter ID Jackie Vincent Plasma Lactic Acid Amrit 1.8 (0.7-2.0) mmol/L Calcium (8.4-10.2) mg/dL Magnesium (1.6-2.3) mg/dL Total Bilirubin (0.2-1.3) mg/dL AST (17-59) U/L ALT (21-72) U/L Alkaline Phosphatase (38-126) U/L Creatine Kinase (55-170) U/L Troponin I <0.012 (0.000-0.034) ng/mL Total Protein (6.3-8.2) g/dL Albumin (3.5-5.0) g/dL Lipase (23-300) U/L Urine Color Urine Appearance (Clear) Urine pH (5.0-8.0) Ur Specific [place] (1.001-1.035) Urine Protein (Negative) Urine Glucose (UA) (Negative) Urine Ketones (Negative) Urine Blood (Negative) Urine Nitrite (Negative) Urine Bilirubin (Negative) Urine Urobilinogen (<2.0) mg/dL Ur Leukocyte Esterase (Negative) Urine Opiates Screen (NotDetected) Ur Oxycodone Screen (NotDetected) Urine Methadone Screen (NotDetected) Ur Propoxyphene Screen (NotDetected) Ur Barbiturates Screen (NotDetected) U Tricyclic Antidepress (NotDetected) Ur Phencyclidine Scrn (NotDetected) Ur Amphetamines Screen (NotDetected) U Methamphetamines Scrn (NotDetected) U Benzodiazepines Scrn (NotDetected) Urine Cocaine Screen (NotDetected) U Marijuana (THC) Screen (NotDetected) Blood Type Blood Type Confirm Blood Type Recheck Antibody Screen Spec Expiration Date 05/26/18 05/26/18 05/26/18 Range/Units 19:10 19:10 19:10 WBC (3.8-10.6) k/uL RBC (4.30-5.90) m/uL Hgb (13.0-17.5) gm/dL Hct (39.0-53.0) % MCV (80.0-100.0) fL MCH (25.0-35.0) pg MCHC (31.0-37.0) g/dL RDW (11.5-15.5) % Plt Count (150-450) k/uL Neutrophils % % Lymphocytes % % Monocytes % % Eosinophils % % Basophils % % Neutrophils # (1.3-7.7) k/uL Lymphocytes # (1.0-4.8) k/uL Monocytes # (0-1.0) k/uL Eosinophils # (0-0.7) k/uL Basophils # (0-0.2) k/uL Sodium (137-145) mmol/L Potassium (3.5-5.1) mmol/L Chloride (98-107) mmol/L Carbon Dioxide (22-30) mmol/L Anion Gap mmol/L BUN (9-20) mg/dL Creatinine (0.66-1.25) mg/dL Est GFR (CKD-EPI)AfAm (>60 ml/min/1.73 sqM) Est GFR (CKD-EPI)NonAf (>60 ml/min/1.73 sqM) Glucose (74-99) mg/dL POC Glucose (mg/dL) (75-99) mg/dL POC Glu Mechanical Cad Drafter ID Plasma Lactic Acid Amrit (0.7-2.0) mmol/L Calcium (8.4-10.2) mg/dL Magnesium (1.6-2.3) mg/dL Total Bilirubin (0.2-1.3) mg/dL AST (17-59) U/L ALT (21-72) U/L Alkaline Phosphatase (38-126) U/L Creatine Kinase (55-170) U/L Troponin I (0.000-0.034) ng/mL Total Protein (6.3-8.2) g/dL Albumin (3.5-5.0) g/dL Lipase (23-300) U/L Urine Color Light Yellow Urine Appearance Clear (Clear) Urine pH 8.0 (5.0-8.0) Ur Specific [place] 1.008 (1.001-1.035) Urine Protein Negative (Negative) Urine Glucose (UA) Negative (Negative) Urine Ketones 1+ H (Negative) Urine Blood Negative (Negative) Urine Nitrite Negative (Negative) Urine Bilirubin Negative (Negative) Urine Urobilinogen <2.0 (<2.0) mg/dL Ur Leukocyte Esterase Negative (Negative) Urine Opiates Screen Not Detected (NotDetected) Ur Oxycodone Screen Not Detected (NotDetected) Urine Methadone Screen Not Detected (NotDetected) Ur Propoxyphene Screen Not Detected (NotDetected) Ur Barbiturates Screen Not Detected (NotDetected) U Tricyclic Antidepress Not Detected (NotDetected) Ur Phencyclidine Scrn Not Detected (NotDetected) Ur Amphetamines Screen Not Detected (NotDetected) U Methamphetamines Scrn Not Detected (NotDetected) U Benzodiazepines Scrn Not Detected (NotDetected) Urine Cocaine Screen Not Detected (NotDetected) U Marijuana (THC) Screen Not Detected (NotDetected) Blood Type Blood Type Confirm A Positive Blood Type Recheck Antibody Screen Spec Expiration Date Disposition Clinical Impression: Dizziness Disposition: OTHER INSTITUTION NOT DEFINED Condition: Fair Referrals: Aman Smyth MD [Primary Care Provider] - 1-2 days Time of Disposition: 21:47 - Out of Hospital Transfer - Req. Specs Out of Hospital Transfer - Requested Specifics: Other Emergency Center ([facility])
[2018-05-26 18:37] LABS: ALT 31 U/L (21-72); AST 29 U/L (17-59); Albumin 4.7 g/dL (3.5-5.0); Alkaline Phosphatase 85 U/L (38-126); Anion Gap 11 mmol/L; Blood Urea Nitrogen 13 mg/dL (9-20); Calcium 9.5 mg/dL (8.4-10.2); Carbon Dioxide 26 mmol/L (22-30); Chloride 103 mmol/L (98-107); Creatine Kinase 141 U/L (55-170); Glucose 95 mg/dL (74-99); Lipase 128 U/L (23-300); Magnesium 1.7 mg/dL (1.6-2.3); Sodium 140 mmol/L (137-145); Total Bilirubin 0.5 mg/dL (0.2-1.3); Total Protein 7.6 g/dL (6.3-8.2)
--- NOTE | 2018-05-26 19:06 | CT ---
EXAMINATION TYPE: CT brain anselmoine wo con DATE OF EXAM: 05/26/2018 COMPARISON: 06/21/2017 HISTORY: Fall injury CT DLP: 1541 mGycm Automated exposure control for dose reduction was used. TECHNIQUE: CT scan of the head and cervical spine are performed without contrast. FINDINGS: Ventricles of normal size. There is no mass effect nor midline shift. There is no sign of intracranial hemorrhage. The calvarium is intact. Cervical vertebra have normal alignment. There is degenerative hypertrophic mild disc disease at C5-6 C6-7. Posterior elements are intact. Facet joints are intact. Skull base is intact. There is no evid ence of cervical spine fracture. IMPRESSION: Negative CT scan of the brain. Mild spondylotic changes in the lower cervical spine. No fracture. No significant change in the brain and cervical spine compared to old exam.
[2018-05-26 19:16] VITALS: RESP 18
[2018-05-26 19:33] LABS: Appearance,Urine Clear (Clear); Bilirubin,Urine Negative (Negative); Blood,Urine Negative (Negative); Color,Urine Light Yellow; Glucose,Urine (UA) Negative (Negative); Ketones,Urine 1+ (Negative); Leukocyte Esterase,Urine Negative (Negative); Nitrite,Urine Negative (Negative); Protein,Urine Negative (Negative); Specific Gravity,Urine 1.008 (1.001-1.035); Urobilinogen,Urine <2.0 mg/dL (<2.0)
[2018-05-26 19:42] LABS: Amphetamine Screen,Urine Not Detected (NotDetected); Barbiturate Screen,Urine Not Detected (NotDetected); Benzodiazepines Screen,Urine Not Detected (NotDetected); Cocaine Screen,Urine Not Detected (NotDetected); Methadone Screen, Urine Not Detected (NotDetected); Opiate Screen,Urine Not Detected (NotDetected); Oxycodone Screen, Urine Not Detected (NotDetected); Phencyclidine Screen,Urine Not Detected (NotDetected); Tricyclic Antidepressant,Urine Not Detected (NotDetected); Urn Cannabinoid Scrn Not Detected (NotDetected)
--- NOTE | 2018-05-26 19:53 | XR ---
EXAMINATION TYPE: XR chest 2V DATE OF EXAM: 05/26/2018 COMPARISON: NONE HISTORY: Weakness TECHNIQUE: Frontal and lateral views of the chest are obtained. FINDINGS: There is no heart failure nor confluent pneumonic infiltrate. Costophrenic angles are sri r. There is a left axillary implant. There are chest leads. Heart size is normal. IMPRESSION: No active cardiopulmonary disease. Normal heart. No change.
[2018-05-26] MEDS ORDERED: ONDANSETRON 4 MG/2 ML VIAL IVP STA (20:41)
[2018-05-26] MEDS ORDERED: MECLIZINE 12.5 MG TAB PO STA (20:41)
[2018-05-26] MEDS ORDERED: SODIUM CHLORIDE 0.9% 500 ML IV STA (20:41)
[2018-05-26] MEDS ORDERED: SODIUM CHLORIDE 0.9% (DEHP FRE 500 ML IV STA (20:53)
[2018-05-26 22:17] VITALS: BP 156/74; PULSE 71; TEMP 98.1
== END 2018-05-26 22:16 | disposition other institution (70) ==
LOC: EC 17:55
DX: R42 Dizziness and giddiness (principal); R53.1 Weakness; E78.5 Hyperlipidemia, unspecified; I10 Essential (primary) hypertension; G40.909 Epilepsy, unspecified, not intractable, without status epilepticus; G47.30 Sleep apnea, unspecified; Z99.89 Dependence on other enabling machines and devices; Z86.73 Personal history of transient ischemic attack (TIA), and cerebral infarction without residual deficits; Z79.52 Long term (current) use of systemic steroids; Z79.02 Long term (current) use of antithrombotics/antiplatelets; Z79.899 Other long term (current) drug therapy
CPT/HCPCS: 36415; 93005; 86900; 86901; 80053; 82550; 83605; 83690; 83735; 84484; 85025; 86850; 81003; 80306; 71046; 72125; 70450; 99285; 96374; 96361; J2405

== ENCOUNTER 2018-07-11 09:13 | Day surgery (SDC) | payer OTHER, MEDICARE ==
[2018-07-06 11:12] VITALS: BMI 34.7
[~2018-07-11 09:13] MED LIST: SODIUM CHLORIDE 0.9% 1,000 ML IV SCH
[2018-07-11 09:40] VITALS: RESP 16; TEMP 98
[2018-07-11] MEDS ORDERED: SODIUM CHLORIDE 0.9% 500 ML 500 ML IV ONE (09:42)
[2018-07-11 11:39] VITALS: BP 125/73; PULSE 66
--- NOTE | 2018-07-11 13:57 | P.PCN ---
Preoperative Diagnosis: Diagnosis recurrent dizzy spells/syncope Twelve-lead ECG Sinus rhythm normal WA narrow QRS normal ST segments Tilt table test per protocol baseline blood pressure 130/87 mmHg Baseline heart rate 71 beats a minute Patient was tilted upright at an angle of 70 per protocol there was a slow gradual decline in blood pressure with the lowest blood pressure of 107/71 mmHg with normal heart rates. Patient felt dizzy through the procedure There was no ohms for neurocardiogenic syncope Impression Slow gradual decline in blood pressure from 130 systolic down to 107 mmHg and then an improvement upon being laid supine Impression Mild orthostatic hypotension syndrome with a gradual slow decline in blood pressure associated with dizziness but without any increase in heart rate
== END 2018-07-11 11:36 | disposition home or self-care (01) ==
LOC: CATHEP 09:13
PROVIDERS: ATTEND Internal Medicine Clinical Cardiac Electrophysiology
DX: I95.1 Orthostatic hypotension (principal); I10 Essential (primary) hypertension; E78.5 Hyperlipidemia, unspecified; G40.909 Epilepsy, unspecified, not intractable, without status epilepticus; I25.2 Old myocardial infarction; Z86.73 Personal history of transient ischemic attack (TIA), and cerebral infarction without residual deficits; Z86.718 Personal history of other venous thrombosis and embolism; Z79.02 Long term (current) use of antithrombotics/antiplatelets; Z79.899 Other long term (current) drug therapy
CPT/HCPCS: 93660

== ENCOUNTER 2018-08-15 20:21 | Emergency (ER) | payer OTHER, MEDICARE ==
[2018-08-15 20:33] LABS: Glucose,Whole Blood 138 mg/dL (75-99)
[2018-08-15] MEDS ORDERED: SODIUM CHLORIDE 0.9% 1,000 ML IV STA (20:33)
[2018-08-15] MEDS ORDERED: levETIRAcetam IV 1,000 MG in SALINE 1 100ML.BAG IVPB STA (20:33)
[2018-08-15 20:40] VITALS: TEMP 97.8
[2018-08-15 20:47] LABS: Basophils % (A) 0 %; Eosinophils # (A) 0.1 k/uL (0-0.7); Eosinophils % (A) 1 %; HCT 46.9 % (39.0-53.0); HGB 15.7 gm/dL (13.0-17.5); Lymphocytes # (A) 1.1 k/uL (1.0-4.8); Lymphocytes % (A) 6 %; MCH 30.4 pg (25.0-35.0); MCHC 33.4 g/dL (31.0-37.0); MCV 91.2 fL (80.0-100.0); Mean Platelet Volume 7.4; Monocytes # (A) 0.6 k/uL (0-1.0); Monocytes % (A) 3 %; Neutrophils # (A) 17.5 k/uL (1.3-7.7); Neutrophils % (A) 90 %; Platelet Count 283 k/uL (150-450); RBC 5.15 m/uL (4.30-5.90); RDW 14.4 % (11.5-15.5); WBC 19.5 k/uL (3.8-10.6)
--- NOTE | 2018-08-15 20:56 | CT ---
EXAMINATION TYPE: CT brain wo con DATE OF EXAM: 08/15/2018 COMPARISON: 05/26/2018 HISTORY: Altered mental status. CT DLP: 1101.4 mGycm Automated exposure control for dose reduction was used. FINDINGS: There is some cerebral cortical atrophy. There is no mass effect nor midline shift. There is no sign of intracranial hemorrhage. Calvarium is intact. There is little pneumatization of the mastoid sinuse s that could relate to chronic mastoiditis. IMPRESSION: MILD ATROPHY. NO ACUTE INTRACRANIAL ABNORMALITY. NO CHANGE.
[2018-08-15 21:01] LABS: Albumin 4.6 g/dL (3.5-5.0); Calcium 9.9 mg/dL (8.4-10.2); INR 0.9 (<1.2); Magnesium 1.9 mg/dL (1.6-2.3); Partial Thromboplastin Time 22.7 sec (22.0-30.0); Phosphorus 3.7 mg/dL (2.5-4.5); Potassium 4.8 mmol/L (3.5-5.1); Prothrombin Time 10.2 sec (9.0-12.0); Total Bilirubin 0.4 mg/dL (0.2-1.3); Total Protein 7.6 g/dL (6.3-8.2)
[2018-08-15 21:07] LABS: Valproic Acid (Depakene) 34.5 ug/mL
[2018-08-15] MEDS ORDERED: SODIUM CHLORIDE 0.9% 1,000 ML IV ONE (21:35)
--- NOTE | 2018-08-15 21:37 | XR ---
EXAMINATION TYPE: XR chest 1V DATE OF EXAM: 08/15/2018 COMPARISON: 05/26/2018 HISTORY: Altered mental status TECHNIQUE: Single frontal view of the chest is obtained. FINDINGS: There is diffuse pulmonary edema. Heart size is probably normal. There is left axillary ne urostimulator noted. There is no pleural effusion. IMPRESSION: There is acute pulmonary edema that is a change compared to last exam.
[2018-08-15] MEDS ORDERED: VANCOMYCIN IV PER PHARMACY 1 EACH MISC MISCELLANE PRN (21:40)
[2018-08-15] MEDS ORDERED: CEFEPIME 2 GM in SODIUM CHLORIDE 0.9% 100 ML IVPB STA (21:40)
[2018-08-15] MEDS ORDERED: VANCOMYCIN 1,500 MG in SODIUM CHLORIDE 0.9% 250 ML IVPB STA (21:45)
[2018-08-15] MEDS ORDERED: ETOMIDATE 2 MG/ML 10 ML VIAL IVP STA (22:12)
--- NOTE | 2018-08-15 22:27 | CT ---
EXAM: CT Angiography Chest Without And With Intravenous Contrast CLINICAL HISTORY: Pain TECHNIQUE: Axial computed tomographic angiography images of the chest without and with intravenous contrast using pulmonary embolism protocol. CTDI is 0. 142, 0.142, 9.4, 4, 8, 12.8 mGy and DLP is 1696.7 mGy-cm. This CT exam was performed using one or more of the following dose reduction techniques: automated exposure control, adjustment of the mA and/or kV according to patient size, and/or use of iterative reconstruction technique. 3D and MIP reconstructed images were created and reviewed. COMPARISON: No relevant prior studies available. FINDINGS: Pulmonary arteries: No pulmonary embolus. Aorta: No thoracic aortic dissection or aneurysm. Lungs: Patchy consolidation seen throughout the left lung to a lesser extent the right lung suggesting multifocal pneumonia. Pleural space: Unremarkable. No significant effusion. No pneumothorax. Heart: Unremarkable. No cardiomegaly. No significant pericardial effusion. No evidence of RV dysfunction. Bones/joints: No acute fracture. No dislocation. Soft tissues: Unremarkable. Lymph nodes: Unremarkable. No enlarged lymph nodes. IMPRESSION: 1. No thoracic aortic dissection or aneurysm. 2. Patchy consolidation seen throughout the left lung and to a lesser extent the right lung suggesting multifocal pneumonia. EXAM: CT Angiography Abdomen and Pelvis Without And With Intravenous Contrast CLINICAL HISTORY: Pain TECHNIQUE: Axial computed tomographic angiography images of the abdomen and pelvis without and with intravenous contrast. CTDI is 0.142, 0.142, 9.4, 4, 8, 12.8 mGy and DLP is 1696.7 mGy-cm. This CT exam was performed using one or more of the following dose reduction techniques: automated exposure control, adjustment of the mA and/or kV according to patient size, and/or use of iterative reconstruction technique. 3D and MIP reconstructed images were created and reviewed. COMPARISON: No relevant prior studies available. FINDINGS: VASCULATURE: Aorta: No abdominal aortic aneurysm or dissection. Celiac trunk and mesenteric arteries: No acute findings. No occlusion or significant stenosis. Renal arteries: No acute findings. No occlusion or significant stenosis. Iliac arteries: No acute findings. No occlusion or significant stenosis. Lung bases: Unremarkable. No mass. No consolidation. ABDOMEN: Liver: Unremarkable. No mass. Gallbladder and bile ducts: Unremarkable. No calcified stones. No ductal dilation. Pancreas: Unremarkable. No ductal dilation. No mass. Spleen: Unremarkable. No splenomegaly. 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 Kidneys and ureters: Unremarkable. No obstructing stones. No hydronephrosis. No solid mass. Stomach and bowel: Unremarkable. No obstruction. No mucosal thickening. PELVIS: Appendix: Appendix is diminutive. Bladder: Unremarkable. No stones. No mass. Reproductive: Unremarkable as visualized. ABDOMEN and PELVIS: Intraperitoneal space: Unremarkable. No significant fluid collection. No free air. Bones/joints: No acute fracture. No dislocation. Soft tissues: Unremarkable. Lymph nodes: Unremarkable. No enlarged lymph nodes. IMPRESSION: No acute findings.
[2018-08-15] MEDS ORDERED: SUCCINYLCHOLINE CHLORIDE VIAL 200 MG/10 ML VIAL IV STA (22:31)
[2018-08-15] MEDS ORDERED: ETOMIDATE 2 MG/ML 10 ML VIAL IV STA (22:32)
[2018-08-15] MEDS ORDERED: PROPOFOL 10 MG/ML 20 ML VIAL IV ONE (22:32)
[2018-08-15] MEDS ORDERED: PROPOFOL 1,000 MG in EMPTY BAG 1 BAG IV ONE (22:32)
--- NOTE | 2018-08-15 22:38 | ED ---
Altered Mental Status HPI - General Chief Complaint: Altered Mental Status Stated Complaint: Altered Mental Status Time Seen by Provider: 08/15/18 20:41 Source: family, EMS Mode of arrival: EMS Limitations: altered mental status - History of Present Illness Initial Comments: 53 yoM with PMH of seizure disorder and orthostatic hypotension presenting after being found unresponsive at home. Patient's states she left around 3 pm. Her father attempted to call the patient at 5 pm and there was no answer. When they arrived to the house he was slumped against the wall not responding. They state he was normal prior to this event. He was not having any chest pain, shortness of breath, F/C. They deny new medications and state he has been compliant with his current medications. They deny any drug or ETOH history. Deny any trauma that they are aware of. - Related Data Home Medications Medication Instructions Recorded Confirmed Fludrocortisone [Florinef] 0.1 mg PO BID 07/17/15 08/15/18 Cholecalciferol [Vitamin D3 (25 5,000 unit PO DAILY@1200 07/29/15 08/15/18 Mcg = 1000 Iu)] Clopidogrel [Plavix] 75 mg PO HS 03/16/17 08/15/18 Atorvastatin [Lipitor] 40 mg PO HS 06/22/17 08/15/18 amLODIPine [Norvasc] 5 mg PO DAILY 06/22/17 08/15/18 levETIRAcetam [Keppra] 1,000 mg PO BID 06/22/17 08/15/18 Divalproex ER [Depakote ER] 500 mg PO BID 05/26/18 08/15/18 Multivitamins, Thera [Multivitamin 1 tab PO DAILY@1200 05/26/18 08/15/18 (formulary)] Niacin (Inositol Niacinate) 500 mg PO DAILY@1200 05/26/18 08/15/18 [Niacin 500 mg Capsule] carBAMazepine [Carbamazepine ER] 300 mg PO BID 05/26/18 08/15/18 Previous Rx's Medication Instructions Recorded Folic Acid 1 mg PO DAILY@1200 #30 tab 06/24/17 Thiamine [Vitamin B-1] 100 mg PO DAILY@1200 #30 tab 06/24/17 lamoTRIgine [LaMICtal] 100 mg PO BID #60 tab 06/24/17 Allergies Allergy/AdvReac Type Severity Reaction Status Date / Time No Known Allergies Allergy Verified 08/15/18 20:37 Review of Systems ROS Statement: Those systems with pertinent positive or pertinent negative responses have been documented in the HPI. Unable to obtain secondary to patient's condition ROS Other: All systems not noted in ROS Statement are negative. Past Medical History Past Medical History: CVA/TIA, Diabetes Mellitus, Hyperlipidemia, Hypertension, Memory Impairment, Seizure Disorder, Sleep Apnea/CPAP/BIPAP Additional Past Medical History / Comment(s): CVA & TIA-some slight residual left sided weakness, "borderline diabetes", not using CPAP, being D/C today from [facility] due to a fall down some stairs 5 weeks ago-thought possibly from seizure, now not sure if that's what happened, has vagus nerve stimulator, last seizure per spouse last week @[facility], see Dr Contreras H & P History of Any Multi-Drug Resistant Organisms: None Reported Past Surgical History: Adenoidectomy, Tonsillectomy Additional Past Surgical History / Comment(s): TUBES IN EARS, VAGUS NERVE STIMULATOR IMPLANT Past Anesthesia/Blood Transfusion Reactions: Previous Problems w/ Anesthesia Additional Past Anesthesia/Blood Transfusion Reaction / Comment(s): STATES A LONG TIME TO WAKE UP AFTER ANESTHESIA. Smoking Status: Never smoker - Past Family History Father Family Medical History: No Reported History Mother Family Medical History: No Reported History Brother(s) Family Medical History: Cancer Additional Family Medical History / Comment(s): PROSTATE CANCER WITH METS. General Exam Limitations: altered mental status Head exam: Present: atraumatic, normocephalic Eye exam: Present: PERRL. Absent: scleral icterus, conjunctival injection, periorbital swelling (8 mm bilaterally ) ENT exam: Present: mucous membranes dry, TM's normal bilaterally Neck exam: Present: normal inspection. Absent: tenderness, meningismus, lymphadenopathy Respiratory exam: Present: decreased breath sounds (on the left. No tachypnea ) GI/Abdominal exam: Present: soft. Absent: distended, guarding, rebound, rigid, bruit exam: Absent: scrotal swelling External exam: Present: normal external exam Extremities exam: Present: normal inspection, full ROM. Absent: pedal edema Back exam: Absent: tenderness Neurological exam: Present: altered (Patient A/Ox2 (not oriented to time) GCS 3- eyes 4-verbal 6-commands (13)) Skin exam: Present: warm, dry, intact, normal color. Absent: rash, cyanosis, petechiae Course Vital Signs 08/15/18 08/15/18 08/15/18 20:27 20:30 20:37 Temperature 97.8 F Pulse Rate 96 Respiratory 16 Rate Blood Pressure 149/101 149/101 149/101 O2 Sat by Pulse 85 L 86 L 92 L Oximetry 08/15/18 08/15/18 08/15/18 20:40 20:50 21:00 Temperature Pulse Rate Respiratory Rate Blood Pressure 121/83 121/83 121/83 O2 Sat by Pulse 91 L 92 L Oximetry 08/15/18 08/15/18 08/15/18 21:10 21:20 21:30 Temperature Pulse Rate Respiratory Rate Blood Pressure 109/65 95/64 95/64 O2 Sat by Pulse 93 L 93 L Oximetry 08/15/18 08/15/18 08/15/18 21:40 21:50 22:00 Temperature Pulse Rate Respiratory Rate Blood Pressure 135/90 121/86 121/86 O2 Sat by Pulse Oximetry 08/16/18 08/16/18 00:13 00:31 Temperature 97.8 F Pulse Rate 80 Respiratory 18 Rate Blood Pressure 126/80 O2 Sat by Pulse 92 L Oximetry Procedures - Intubation Sedative: Etomidate Mg Given: 20 Paralytic: Succinylcholine Mg Given: 100 ET Tube Size: 8 ET Tube Uncuffed: No Tube Secured Depth (cm): 25 Tube Secured Location: lips Tube Placement Confirmation: visualized tube passing through cords, equal breath sounds bilaterally Patient Tolerated Procedure: well - Restraint - Face to Face Restraint Occurrence 1 Patient's Immediate Situation - Comment: Confused. Intubation Patient's Reaction to the Intervention: Uncooperative Patient's Medical & Behavioral Condition: Anxious Need to Continue or Terminate Restraint or Seclusion: Continue Medical Decision Making - Medical Decision Making 83-year-old male presenting with altered mental status. Initial exam the patient is intermittently following commands is confused. GCS of 13 intermittently AO3. He is hypertensive with a heart rate of 92. He is afebrile. Initially the patient's O2 saturation was 96%, but while he was in the emergency department and he began to desaturate. A chest x-ray showed a large amount of pulmonary edema on the left lung. Patient was found have a leukocytosis of 19.5 and a troponin of 0.968. He was sent directly to CT to rule out dissection, which was negative. Patient was found to have a lactic aci dosis of 4.6. He was start on vancomycin and cefepime initially for the concern for possible sepsis secondary to pneumonia. Family stated he was recently admitted. The patient's and [id number] deny any fever or any symptoms prior to the event. He had no nuchal rigidity on exam. He also had no rash. In lieu of the patient's desaturation and inability to be on BiPAP for his pulmonary edema the decision was made to intubate. Spoke with the patient's , Hilda Navarrete, who is agreeable to intubation. I also discussed the possibility of placing a central line if the patient became hypotensive. Patient underwent intubation without difficulty. He is normotensive at this time and sedated on propofol. His EKG showed normal sinus rhythm at a rate of [address] segment elevation, depression. No prolonged QT/QTc or MD interval. No dysrythmia noted. The patient was started on heparin for his elevated troponin. I'm concerned that the patient had a prolonged seizure episode which led to pulmonary edema, hypoxia, and subsequently a lactic acidosis and elevated troponin. We do not have neurology in house for consultation and therefore the decision was made to transfer the patient. I spoke with the patient's Hilda Navarrete about transfer and she was agreeable. Shortly after that the patient's brzass-ly-nys called and stated that [facility] was not convenient for them. I discussed in length with the patient's father in law that he requires neurologic consultation and it is in the best interest of the patient that he is transferred to [facility]. He was agreeable. The patient's ETT was in the right main stem after intubation. It was pulled back to an appropriate position. I spoke with Jose who was agreeable to transfer. Patient currently stable for transfer to [facility]. - Lab Data Result diagrams: 08/15/18 20:40 08/15/18 20:40 Lab Results 08/15/18 08/15/18 08/15/18 Range/Units 20:27 20:40 20:40 WBC 19.5 H (3.8-10.6) k/uL RBC 5.15 (4.30-5.90) m/uL Hgb 15.7 (13.0-17.5) gm/dL Hct 46.9 (39.0-53.0) % MCV 91.2 (80.0-100.0) fL MCH 30.4 (25.0-35.0) pg MCHC 33.4 (31.0-37.0) g/dL RDW 14.4 (11.5-15.5) % Plt Count 283 (150-450) k/uL Neutrophils % 90 % Lymphocytes % 6 % Monocytes % 3 % Eosinophils % 1 % Basophils % 0 % Neutrophils # 17.5 H (1.3-7.7) k/uL Lymphocytes # 1.1 (1.0-4.8) k/uL Monocytes # 0.6 (0-1.0) k/uL Eosinophils # 0.1 (0-0.7) k/uL Basophils # 0.0 (0-0.2) k/uL PT (9.0-12.0) sec INR (<1.2) APTT (22.0-30.0) sec Sample Site ABG pH (7.35-7.45) ABG pCO2 (35-45) mmHg ABG pO2 (83-108) mmHg ABG HCO3 (21-25) mmol/L ABG Total CO2 (19-24) mmol/L ABG O2 Saturation (94-97) % ABG Base Excess mmol/L Zack Test FiO2 % Sodium 132 L (137-145) mmol/L Potassium 4.8 (3.5-5.1) mmol/L Chloride 94 L (98-107) mmol/L Carbon Dioxide 26 (22-30) mmol/L Anion Gap 12 mmol/L BUN 12 (9-20) mg/dL Creatinine 1.09 (0.66-1.25) mg/dL Est GFR (CKD-EPI)AfAm 90 (>60 ml/min/1.73 sqM) Est GFR (CKD-EPI)NonAf 78 (>60 ml/min/1.73 sqM) Glucose 122 H (74-99) mg/dL POC Glucose (mg/dL) 138 H (75-99) mg/dL POC Glu Obstetrics Scrub Nurse ID Creteau, Maryuri, A Lactic Ac Sepsis Rflx Plasma Lactic Acid Amrit (0.7-2.0) mmol/L Calcium 9.9 (8.4-10.2) mg/dL Phosphorus 3.7 (2.5-4.5) mg/dL Magnesium 1.9 (1.6-2.3) mg/dL Total Bilirubin 0.4 (0.2-1.3) mg/dL AST 35 (17-59) U/L ALT 14 L (21-72) U/L Alkaline Phosphatase 91 (38-126) U/L Troponin I (0.000-0.034) ng/mL NT-Pro-B Natriuret Pep pg/mL Total Protein 7.6 (6.3-8.2) g/dL Albumin 4.6 (3.5-5.0) g/dL Urine Color Urine Appearance (Clear) Urine pH (5.0-8.0) Ur Specific [place] (1.001-1.035) Urine Protein (Negative) Urine Glucose (UA) (Negative) Urine Ketones (Negative) Urine Blood (Negative) Urine Nitrite (Negative) Urine Bilirubin (Negative) Urine Urobilinogen (<2.0) mg/dL Ur Leukocyte Esterase (Negative) Urine RBC (0-5) /hpf Urine WBC (0-5) /hpf Ur Squamous Epith Cells (0-4) /hpf Hyaline Casts (0-2) /lpf Urine Mucus (None) /hpf Urine Opiates Screen (NotDetected) Ur Oxycodone Screen (NotDetected) Urine Methadone Screen (NotDetected) Ur Propoxyphene Screen (NotDetected) Ur Barbiturates Screen (NotDetected) Valproic Acid 34.5 ug/mL U Tricyclic Antidepress (NotDetected) Ur Phencyclidine Scrn (NotDetected) Ur Amphetamines Screen (NotDetected) U Methamphetamines Scrn (NotDetected) U Benzodiazepines Scrn (NotDetected) Urine Cocaine Screen (NotDetected) U Marijuana (THC) Screen (NotDetected) 08/15/18 08/15/18 08/15/18 Range/Units 20:40 20:40 20:40 WBC (3.8-10.6) k/uL RBC (4.30-5.90) m/uL Hgb (13.0-17.5) gm/dL Hct (39.0-53.0) % MCV (80.0-100.0) fL MCH (25.0-35.0) pg MCHC (31.0-37.0) g/dL RDW (11.5-15.5) % Plt Count (150-450) k/uL Neutrophils % % Lymphocytes % % Monocytes % % Eosinophils % % Basophils % % Neutrophils # (1.3-7.7) k/uL Lymphocytes # (1.0-4.8) k/uL Monocytes # (0-1.0) k/uL Eosinophils # (0-0.7) k/uL Basophils # (0-0.2) k/uL PT 10.2 (9.0-12.0) sec INR 0.9 (<1.2) APTT 22.7 (22.0-30.0) sec Sample Site ABG pH (7.35-7.45) ABG pCO2 (35-45) mmHg ABG pO2 (83-108) mmHg ABG HCO3 (21-25) mmol/L ABG Total CO2 (19-24) mmol/L ABG O2 Saturation (94-97) % ABG Base Excess mmol/L Zack Test FiO2 % Sodium (137-145) mmol/L Potassium (3.5-5.1) mmol/L Chloride (98-107) mmol/L Carbon Dioxide (22-30) mmol/L Anion Gap mmol/L BUN (9-20) mg/dL Creatinine (0.66-1.25) mg/dL Est GFR (CKD-EPI)AfAm (>60 ml/min/1.73 sqM) Est GFR (CKD-EPI)NonAf (>60 ml/min/1.73 sqM) Glucose (74-99) mg/dL POC Glucose (mg/dL) (75-99) mg/dL POC Glu Obstetrics Scrub Nurse ID Lactic Ac Sepsis Rflx Plasma Lactic Acid Amrit 4.6 H* (0.7-2.0) mmol/L Calcium (8.4-10.2) mg/dL Phosphorus (2.5-4.5) mg/dL Magnesium (1.6-2.3) mg/dL Total Bilirubin (0.2-1.3) mg/dL AST (17-59) U/L ALT (21-72) U/L Alkaline Phosphatase (38-126) U/L Troponin I (0.000-0.034) ng/mL NT-Pro-B Natriuret Pep 98 pg/mL Total Protein (6.3-8.2) g/dL Albumin (3.5-5.0) g/dL Urine Color Urine Appearance (Clear) Urine pH (5.0-8.0) Ur Specific [place] (1.001-1.035) Urine Protein (Negative) Urine Glucose (UA) (Negative) Urine Ketones (Negative) Urine Blood (Negative) Urine Nitrite (Negative) Urine Bilirubin (Negative) Urine Urobilinogen (<2.0) mg/dL Ur Leukocyte Esterase (Negative) Urine RBC (0-5) /hpf Urine WBC (0-5) /hpf Ur Squamous Epith Cells (0-4) /hpf Hyaline Casts (0-2) /lpf Urine Mucus (None) /hpf Urine Opiates Screen (NotDetected) Ur Oxycodone Screen (NotDetected) Urine Methadone Screen (NotDetected) Ur Propoxyphene Screen (NotDetected) Ur Barbiturates Screen (NotDetected) Valproic Acid ug/mL U Tricyclic Antidepress (NotDetected) Ur Phencyclidine Scrn (NotDetected) Ur Amphetamines Screen (NotDetected) U Methamphetamines Scrn (NotDetected) U Benzodiazepines Scrn (NotDetected) Urine Cocaine Screen (NotDetected) U Marijuana (THC) Screen (NotDetected) 08/15/18 08/15/18 08/15/18 Range/Units 20:40 21:11 22:57 WBC (3.8-10.6) k/uL RBC (4.30-5.90) m/uL Hgb (13.0-17.5) gm/dL Hct (39.0-53.0) % MCV (80.0-100.0) fL MCH (25.0-35.0) pg MCHC (31.0-37.0) g/dL RDW (11.5-15.5) % Plt Count (150-450) k/uL Neutrophils % % Lymphocytes % % Monocytes % % Eosinophils % % Basophils % % Neutrophils # (1.3-7.7) k/uL Lymphocytes # (1.0-4.8) k/uL Monocytes # (0-1.0) k/uL Eosinophils # (0-0.7) k/uL Basophils # (0-0.2) k/uL PT (9.0-12.0) sec INR (<1.2) APTT (22.0-30.0) sec Sample Site ABG pH (7.35-7.45) ABG pCO2 (35-45) mmHg ABG pO2 (83-108) mmHg ABG HCO3 (21-25) mmol/L ABG Total CO2 (19-24) mmol/L ABG O2 Saturation (94-97) % ABG Base Excess mmol/L Zack Test FiO2 % Sodium (137-145) mmol/L Potassium (3.5-5.1) mmol/L Chloride (98-107) mmol/L Carbon Dioxide (22-30) mmol/L Anion Gap mmol/L BUN (9-20) mg/dL Creatinine (0.66-1.25) mg/dL Est GFR (CKD-EPI)AfAm (>60 ml/min/1.73 sqM) Est GFR (CKD-EPI)NonAf (>60 ml/min/1.73 sqM) Glucose (74-99) mg/dL POC Glucose (mg/dL) (75-99) mg/dL POC Glu Obstetrics Scrub Nurse ID Lactic Ac Sepsis Rflx Y Plasma Lactic Acid Amrit (0.7-2.0) mmol/L Calcium (8.4-10.2) mg/dL Phosphorus (2.5-4.5) mg/dL Magnesium (1.6-2.3) mg/dL Total Bilirubin (0.2-1.3) mg/dL AST (17-59) U/L ALT (21-72) U/L Alkaline Phosphatase (38-126) U/L Troponin I 0.968 H* (0.000-0.034) ng/mL NT-Pro-B Natriuret Pep pg/mL Total Protein (6.3-8.2) g/dL Albumin (3.5-5.0) g/dL Urine Color Yellow Urine Appearance Clear (Clear) Urine pH 6.0 (5.0-8.0) Ur Specific [place] 1.032 (1.001-1.035) Urine Protein 2+ H (Negative) Urine Glucose (UA) Trace H (Negative) Urine Ketones 1+ H (Negative) Urine Blood Trace H (Negative) Urine Nitrite Negative (Negative) Urine Bilirubin Negative (Negative) Urine Urobilinogen <2.0 (<2.0) mg/dL Ur Leukocyte Esterase Negative (Negative) Urine RBC 7 H (0-5) /hpf Urine WBC 4 (0-5) /hpf Ur Squamous Epith Cells <1 (0-4) /hpf Hyaline Casts 13 H (0-2) /lpf Urine Mucus Rare H (None) /hpf Urine Opiates Screen (NotDetected) Ur Oxycodone Screen (NotDetected) Urine Methadone Screen (NotDetected) Ur Propoxyphene Screen (NotDetected) Ur Barbiturates Screen (NotDetected) Valproic Acid ug/mL U Tricyclic Antidepress (NotDetected) Ur Phencyclidine Scrn (NotDetected) Ur Amphetamines Screen (NotDetected) U Methamphetamines Scrn (NotDetected) U Benzodiazepines Scrn (NotDetected) Urine Cocaine Screen (NotDetected) U Marijuana (THC) Screen (NotDetected) 08/15/18 08/15/18 Range/Units 22:57 23:45 WBC (3.8-10.6) k/uL RBC (4.30-5.90) m/uL Hgb (13.0-17.5) gm/dL Hct (39.0-53.0) % MCV (80.0-100.0) fL MCH (25.0-35.0) pg MCHC (31.0-37.0) g/dL RDW (11.5-15.5) % Plt Count (150-450) k/uL Neutrophils % % Lymphocytes % % Monocytes % % Eosinophils % % Basophils % % Neutrophils # (1.3-7.7) k/uL Lymphocytes # (1.0-4.8) k/uL Monocytes # (0-1.0) k/uL Eosinophils # (0-0.7) k/uL Basophils # (0-0.2) k/uL PT (9.0-12.0) sec INR (<1.2) APTT (22.0-30.0) sec Sample Site Left Radial ABG pH 7.29 L (7.35-7.45) ABG pCO2 41 (35-45) mmHg ABG pO2 71 L (83-108) mmHg ABG HCO3 20 L (21-25) mmol/L ABG Total CO2 21 (19-24) mmol/L ABG O2 Saturation 91.6 L (94-97) % ABG Base Excess -7.0 mmol/L Zack Test Yes FiO2 100 % Sodium (137-145) mmol/L Potassium (3.5-5.1) mmol/L Chloride (98-107) mmol/L Carbon Dioxide (22-30) mmol/L Anion Gap mmol/L BUN (9-20) mg/dL Creatinine (0.66-1.25) mg/dL Est GFR (CKD-EPI)AfAm (>60 ml/min/1.73 sqM) Est GFR (CKD-EPI)NonAf (>60 ml/min/1.73 sqM) Glucose (74-99) mg/dL POC Glucose (mg/dL) (75-99) mg/dL POC Glu Obstetrics Scrub Nurse ID Lactic Ac Sepsis Rflx Plasma Lactic Acid Amrit (0.7-2.0) mmol/L Calcium (8.4-10.2) mg/dL Phosphorus (2.5-4.5) mg/dL Magnesium (1.6-2.3) mg/dL Total Bilirubin (0.2-1.3) mg/dL AST (17-59) U/L ALT (21-72) U/L Alkaline Phosphatase (38-126) U/L Troponin I (0.000-0.034) ng/mL NT-Pro-B Natriuret Pep pg/mL Total Protein (6.3-8.2) g/dL Albumin (3.5-5.0) g/dL Urine Color Urine Appearance (Clear) Urine pH (5.0-8.0) Ur Specific [place] (1.001-1.035) Urine Protein (Negative) Urine Glucose (UA) (Negative) Urine Ketones (Negative) Urine Blood (Negative) Urine Nitrite (Negative) Urine Bilirubin (Negative) Urine Urobilinogen (<2.0) mg/dL Ur Leukocyte Esterase (Negative) Urine RBC (0-5) /hpf Urine WBC (0-5) /hpf Ur Squamous Epith Cells (0-4) /hpf Hyaline Casts (0-2) /lpf Urine Mucus (None) /hpf Urine Opiates Screen Not Detected (NotDetected) Ur Oxycodone Screen Not Detected (NotDetected) Urine Methadone Screen Not Detected (NotDetected) Ur Propoxyphene Screen Not Detected (NotDetected) Ur Barbiturates Screen Not Detected (NotDetected) Valproic Acid ug/mL U Tricyclic Antidepress Not Detected (NotDetected) Ur Phencyclidine Scrn Not Detected (NotDetected) Ur Amphetamines Screen Not Detected (NotDetected) U Methamphetamines Scrn Not Detected (NotDetected) U Benzodiazepines Scrn Not Detected (NotDetected) Urine Cocaine Screen Not Detected (NotDetected) U Marijuana (THC) Screen Not Detected (NotDetected) Disposition Clinical Impression: Altered mental status, Pulmonary edema, Lactic acidosis, Acute respiratory failure, Sepsis, Seizure disorder Disposition: OTHER INSTITUTION NOT DEFINED Condition: Serious Referrals: Aman Smyth MD [Primary Care Provider] - 1-2 days - Out of Hospital Transfer - Req. Specs Out of Hospital Transfer - Requested Specifics: Other Emergency Center ([facility])
[2018-08-15] MEDS ORDERED: HEPARIN SODIUM,PORCINE 5,000 UNIT/ML 1 ML VIAL IV ONE (22:40)
[2018-08-15] MEDS ORDERED: HEPARIN SODIUM,PORCINE 5,000 UNIT/ML 1 ML VIAL IV PRN (22:40)
[2018-08-15] MEDS ORDERED: HEPARIN SOD,PORK IN 0.45% NACL 25,000 UNIT in 0.45% NACL 1 250ML.BAG IV SCH (22:45)
--- NOTE | 2018-08-15 22:45 | XR ---
EXAM: XR Chest, 1 View CLINICAL HISTORY: Tube placement TECHNIQUE: Frontal view of the chest. COMPARISON: CXR dated 08/15/18 FINDINGS: Lungs: Diffuse airspace opacities which may be infectious. Pleural space: Unremarkable. No pneumothorax. Heart: Heart enlarged. Mediastinum: Unremarkable. Bones/joints: Unremarkable. Tubes, lines and devices: Endotracheal tube with tip in the right mainstem bronchus. Recommend retraction by 4 cm. Endotracheal tube is coiled within the stomach. Stimulator device projects over the left upper thorax. IMPRESSION: 1. Endotracheal tube with tip in the right mainstem bronchus. Recommend retraction by 4 cm. 2. Endotracheal tube is coiled within the stomach. 3. Diffuse airspace opacities which may be infectious. <MYCVCSECTION> [employer] 08/15/18 23:02 Verify Receipt Verified receipt with Dr. Jones on 08/15 23:02 (-04:00)
[2018-08-15 23:12] LABS: Appearance,Urine Clear (Clear); Bilirubin,Urine Negative (Negative); Blood,Urine Trace (Negative); Color,Urine Yellow; Glucose,Urine (UA) Trace (Negative); Hyaline Casts,Urine 13 /lpf (0-2); Ketones,Urine 1+ (Negative); Leukocyte Esterase,Urine Negative (Negative); Mucus,Urine Rare /hpf; Nitrite,Urine Negative (Negative); Protein,Urine 2+ (Negative); RBC,Urine 7 /hpf (0-5); Specific Gravity,Urine 1.032 (1.001-1.035); Squamous Epithelial Cell,Urine <1 /hpf (0-4); Urobilinogen,Urine <2.0 mg/dL (<2.0); WBC,Urine 4 /hpf (0-5)
[2018-08-15 23:26] LABS: Amphetamine Screen,Urine Not Detected (NotDetected); Barbiturate Screen,Urine Not Detected (NotDetected); Benzodiazepines Screen,Urine Not Detected (NotDetected); Cocaine Screen,Urine Not Detected (NotDetected); Methadone Screen, Urine Not Detected (NotDetected); Opiate Screen,Urine Not Detected (NotDetected); Oxycodone Screen, Urine Not Detected (NotDetected); Phencyclidine Screen,Urine Not Detected (NotDetected); Tricyclic Antidepressant,Urine Not Detected (NotDetected); Urn Cannabinoid Scrn Not Detected (NotDetected)
[2018-08-15] MEDS ORDERED: MIDAZOLAM (PF) 2 MG/2 ML VIAL IV ONE (23:35)
--- NOTE | 2018-08-15 23:41 | XR ---
EXAM: XR Chest, 1 View CLINICAL HISTORY: Tube placement TECHNIQUE: Frontal view of the chest. COMPARISON: Chest x-ray dated 08/15/2018 FINDINGS: Lungs: Diffuse airspace opacities which may be inflammatory or infectious. Pleural space: Unremarkable. No pneumothorax. Heart: Heart enlarged. Mediastinum: Unremarkable. Bones/joints: Unremarkable. Tubes, lines and devices: Endotracheal tube terminates 15 mm above the gretchen. Enteric tube is coiled within the stomach. Stimulator device projects over the left upper thorax. IMPRESSION: 1. Endotracheal tube terminates 15 mm above the gretchen. 2. Enteric tube is coiled within the stomach. 3. Diffuse airspace opacities which may be inflammatory or infectious.
[2018-08-15] MEDS ORDERED: SODIUM CHLORIDE 0.9% 1,000 ML IV SCH (23:45)
[2018-08-15 23:49] LABS: ABG HCO3 20 mmol/L (21-25); ABG Oxygen Saturation 91.6 % (94-97); ABG PCO2 41 mmHg (35-45); ABG PH 7.29 (7.35-7.45); ABG PO2 71 mmHg (83-108); ABG TCO2 21 mmol/L (19-24)
[2018-08-16 00:38] VITALS: BP 126/80; PULSE 80; RESP 18
[2018-08-16] MEDS ORDERED: VANCOMYCIN 1,500 MG in SODIUM CHLORIDE 0.9% 250 ML IVPB SCH (09:00)
== END 2018-08-16 00:31 | disposition short-term general hospital (02) ==
LOC: EC 20:21
DX: J96.00 Acute respiratory failure, unspecified whether with hypoxia or hypercapnia (principal); G40.909 Epilepsy, unspecified, not intractable, without status epilepticus; E87.2 Acidosis; J81.0 Acute pulmonary edema; A41.9 Sepsis, unspecified organism; R41.82 Altered mental status, unspecified; E78.5 Hyperlipidemia, unspecified; I10 Essential (primary) hypertension; G47.30 Sleep apnea, unspecified; Z79.02 Long term (current) use of antithrombotics/antiplatelets; Z79.899 Other long term (current) drug therapy; Z86.73 Personal history of transient ischemic attack (TIA), and cerebral infarction without residual deficits
CPT/HCPCS: 99285; 31500; 36415; 93005; 80164; 83880; 80053; 80177; 82805; 83605; 83735; 84100; 84484; 85025; 85610; 85730; 81001; 87040; 80306; 87086; 71045; 70450; 71275; 74174; 96365; 96368; 96375 ×2; 96376; J3370; J0330; J1644 ×2; J0692; J2704 ×2; J1953; Q9967; J2250; 94002

== ENCOUNTER 2019-03-27 09:14 | Emergency (ER) | payer OTHER, MEDICARE ==
[2019-03-27 09:20] VITALS: RESP 18
[2019-03-27] MEDS ORDERED: AMOXIC-POT CLAV 875MG STARTER 2 EACH TABLET PO STA (09:56)
[2019-03-27] MEDS ORDERED: AMOXIC-POT CLAV 875-125MG 1 EACH TAB PO STA (09:56)
--- NOTE | 2019-03-27 10:01 | ED ---
General Adult HPI - General Chief complaint: Skin/Abscess/Foreign Body Stated complaint: poss bed bug rt ear Time Seen by Provider: 03/27/19 09:29 Source: patient, RN notes reviewed, old records reviewed Mode of arrival: ambulatory Limitations: no limitations - History of Present Illness Initial comments: 53-year-old male patient presents to ED for evaluation of possible bedbug in right ear. Patient reports that he did discover bedbugs in bed patient presents that he woke up he felt some crackling in his ear. Patient then put a Q-tip in his ear and noticed that he had some drainage. Denies any other complaints at this time. Systemic: Pt denies fatigue, fever/chills, rash. Pt denies weakness, night sweats, weight loss. Neuro: Pt denies headache, visual disturbances, syncope or pre-syncope. HEENT: Pt denies ocular discharge or irritation, otalgia, rhinorrhea, pharyngitis or notable lymphadenopathy. Cardiopulmonary: Pt denies chest pain, SOB, heart palpitations, dyspnea on exertion. Abdominal/GI: Pt denies abdominal pain, n/v/d. : Pt denies dysuria, burning w/ urination, frequency/urgency. Denies new onset urinary or bowel incontinence. MSK: Pt denies myalgia, loss of strength or function in extremities. Neuro: Pt denies new onset weakness, paresthesias. - Related Data Home Medications Medication Instructions Recorded Confirmed Fludrocortisone [Florinef] 0.1 mg PO BID 07/17/15 08/15/18 Cholecalciferol [Vitamin D3 (25 5,000 unit PO DAILY@1200 07/29/15 08/15/18 Mcg = 1000 Iu)] Clopidogrel [Plavix] 75 mg PO HS 03/16/17 08/15/18 Atorvastatin [Lipitor] 40 mg PO HS 06/22/17 08/15/18 amLODIPine [Norvasc] 5 mg PO DAILY 06/22/17 08/15/18 levETIRAcetam [Keppra] 1,000 mg PO BID 06/22/17 08/15/18 Divalproex ER [Depakote ER] 500 mg PO BID 05/26/18 08/15/18 Multivitamins, Thera [Multivitamin 1 tab PO DAILY@1200 05/26/18 08/15/18 (formulary)] Niacin (Inositol Niacinate) 500 mg PO DAILY@1200 05/26/18 08/15/18 [Niacin 500 mg Capsule] carBAMazepine [Carbamazepine ER] 300 mg PO BID 05/26/18 08/15/18 Previous Rx's Medication Instructions Recorded Folic Acid 1 mg PO DAILY@1200 #30 tab 06/24/17 Thiamine [Vitamin B-1] 100 mg PO DAILY@1200 #30 tab 06/24/17 lamoTRIgine [LaMICtal] 100 mg PO BID #60 tab 06/24/17 Amoxicillin/Potassium Clav 1 each PO Q12HR #20 tab 03/27/19 [Augmentin 875-125 Tablet] Allergies Allergy/AdvReac Type Severity Reaction Status Date / Time No Known Allergies Allergy Verified 03/27/19 09:20 Review of Systems ROS Statement: Those systems with pertinent positive or pertinent negative responses have been documented in the HPI. ROS Other: All systems not noted in ROS Statement are negative. Past Medical History Past Medical History: CVA/TIA, Diabetes Mellitus, Hyperlipidemia, Hypertension, Memory Impairment, Seizure Disorder, Sleep Apnea/CPAP/BIPAP Additional Past Medical History / Comment(s): CVA & TIA-some slight residual left sided weakness, "borderline diabetes", not using CPAP, being D/C today from [facility]-rehab due to a fall down some stairs 5 weeks ago-thought possibly from seizure, now not sure if that's what happened, has vagus nerve stimulator, last seizure per spouse last week @[facility], see Dr Contreras H & P History of Any Multi-Drug Resistant Organisms: None Reported Past Surgical History: Adenoidectomy, Tonsillectomy Additional Past Surgical History / Comment(s): TUBES IN EARS, VAGUS NERVE STIMULATOR IMPLANT Past Anesthesia/Blood Transfusion Reactions: Previous Problems w/ Anesthesia Additional Past Anesthesia/Blood Transfusion Reaction / Comment(s): STATES A LONG TIME TO WAKE UP AFTER ANESTHESIA. Past Psychological History: No Psychological Hx Reported Smoking Status: Never smoker Past Alcohol Use History: None Reported Past Drug Use History: None Reported - Past Family History Father Family Medical History: No Reported History Mother Family Medical History: No Reported History Brother(s) Family Medical History: Cancer Additional Family Medical History / Comment(s): PROSTATE CANCER WITH METS. General Exam - General Exam Comments Initial Comments: Constitutional: NAD, AOX3, Pt has pleasant affect. HEENT: NC/AT, trachea midline, neck supple, no lymphadenopathy. Posterior pharynx non erythematous, without exudates. External ears appear normal, without discharge. Right tympanic membrane pale acosta, mild erythema in the auditory canal, no foreign body or insect noted. Small amount of clear otorrhea noted. Left TM pale acosta, no bulging, no erythema, no perforation. Mucous membranes moist. Eyes PERRLA, EOM intact. There is no scleral icterus. No pallor noted. Cardiopulmonary: RRR, no murmurs, rubs or gallops, no JVD noted. Lungs CTAB in anterior and posterior kaur. No peripheral edema. Abdominal exam: Abdomen soft and non-distended. Abdomen non-tender to palpation in all 4 quadrants. Bowel sounds active in LLQ. No hepatosplenomegaly. No ecchymosis Neuro: CN II-XII grossly intact. No nuchal rigidity. No raccon eyes, no lemus sign, no hemotympanum. No cervical spinal tenderness. MSK: No posterior calf tenderness bilaterally, homans sign negative bilaterally. Posterior tibialis and radial pulse +2 bilaterally. Sensation intact in upper and lower extremities. Full active ROM in upper and lower extremities, 5/5 stregnth. Limitations: no limitations Course Vital Signs 03/27/19 09:17 Temperature 98.2 F Pulse Rate 92 Respiratory 18 Rate Blood Pressure 141/88 O2 Sat by Pulse 96 Oximetry Medical Decision Making - Medical Decision Making 53-year-old male patient presents to ED for evaluation of possible bedbug in right ear. Patient vital signs are stable, afebrile. Physical exam displayed: External ears appear normal, without discharge. Right tympanic membrane pale acosta, mild erythema in the auditory canal, no foreign body or insect noted. Small amount of clear otorrhea noted. Left TM pale acosta, no bulging, no erythem a, no perforation. Patient will be covered with antibiotics and will follow up with ENT tomorrow. Pt will return to ER physician worsens. Case discussed with Dr. Keenan. Disposition Clinical Impression: Otorrhea of right ear Narrative: Evaluation for possible foreign body of right ear Disposition: HOME SELF-CARE Condition: Stable Instructions (If sedation given, give patient instructions): Ear Infection (ED), Bed Bugs (ED) Additional Instructions: Take antibiotics as directed. Follow up with primary care provider and ENT tomorrow. Return to ER if condition worsens in any way. Prescriptions: Amoxicillin/Potassium Clav [Augmentin 875-125 Tablet] 1 each PO Q12HR #20 tab Is patient prescribed a controlled substance at d/c from ED?: No Referrals: Amna Smyth MD [Primary Care Provider] - 1-2 days Zachery Gracia MD [STAFF PHYSICIAN] - 1-2 days
[2019-03-27 10:54] VITALS: BP 157/100; PULSE 77; TEMP 97.7
== END 2019-03-27 10:51 | disposition home or self-care (01) ==
LOC: EC 09:14
DX: H92.11 Otorrhea, right ear (principal); I10 Essential (primary) hypertension; G40.909 Epilepsy, unspecified, not intractable, without status epilepticus; E11.9 Type 2 diabetes mellitus without complications; Z79.02 Long term (current) use of antithrombotics/antiplatelets; Z79.899 Other long term (current) drug therapy; Z79.52 Long term (current) use of systemic steroids; Z96.22 Myringotomy tube(s) status; Z86.73 Personal history of transient ischemic attack (TIA), and cerebral infarction without residual deficits
CPT/HCPCS: 99284

== ENCOUNTER → 2019-09-22 | Outpatient (CLI) | payer OTHER, MEDICARE ==
[2019-09-22 11:28] LABS: HCT 45.8 % (39.0-53.0); HGB 15.3 gm/dL (13.0-17.5); MCH 32.1 pg (25.0-35.0); MCHC 33.3 g/dL (31.0-37.0); MCV 96.2 fL (80.0-100.0); Mean Platelet Volume 7.6; Platelet Count 280 k/uL (150-450); RBC 4.76 m/uL (4.30-5.90); RDW 13.6 % (11.5-15.5)
[2019-09-22 16:56] LABS: African American GFR (CKD) 88.4 (60.0-200.0); Albumin 4.9 g/dL (3.80-4.90); Albumin/Globulin Ratio 1.96 (1.60-3.17); Anion Gap 10.7 mmol/L (4.00-12.00); BUN/Creat Ratio 15.45 Ratio (12.00-20.00); Calcium 9.8 mg/dL (8.7-10.3); Carbon Dioxide 27.3 mmol/L (21.6-31.8); Globulin 2.5 g/dL (1.6-3.3); Non-African American GFR(CKD) 76.2 (60.0-200.0); Potassium 5.3 mmol/L (3.5-5.5); Total Bilirubin 0.4 mg/dL (0.3-1.2); Total Protein 7.4 g/dL (6.2-8.2)
== END | disposition home or self-care (01) ==
LOC: LABWHC1 09:50
PROVIDERS: ATTEND Psychiatry & Neurology Neurology
DX: G40.909 Epilepsy, unspecified, not intractable, without status epilepticus (principal)
CPT/HCPCS: 36415; 80053; 85027

== ENCOUNTER 2019-10-30 17:58 | Observation (INO) | payer OTHER, MEDICARE ==
--- NOTE | 2019-10-30 18:21 | ED ---
General Adult HPI - General Chief complaint: Seizure Stated complaint: seizure Time Seen by Provider: 10/30/19 18:01 Source: patient, EMS, RN notes reviewed Mode of arrival: EMS Limitations: altered mental status - History of Present Illness Initial comments: Patient is a pleasant 54-year-old male presenting to the emergency Department with change in mental status. Patient was found at home unresponsive, last seen a few hours prior to that. Patient states it feels like he had a seizure. Patient states he is on all for seizure medication still. Patient is drowsy but able to answer simple questions. Patient denies recent illness. Patient denies injury. Patient has no other complaints at this time other than feeling drowsy. - Related Data Home Medications Medication Instructions Recorded Confirmed Fludrocortisone [Florinef] 0.1 mg PO BID 07/17/15 08/15/18 Cholecalciferol [Vitamin D3 (25 5,000 unit PO DAILY@1200 07/29/15 08/15/18 Mcg = 1000 Iu)] Clopidogrel [Plavix] 75 mg PO HS 03/16/17 08/15/18 Atorvastatin [Lipitor] 40 mg PO HS 06/22/17 08/15/18 amLODIPine [Norvasc] 5 mg PO DAILY 06/22/17 08/15/18 levETIRAcetam [Keppra] 1,000 mg PO BID 06/22/17 08/15/18 Divalproex ER [Depakote ER] 500 mg PO BID 05/26/18 08/15/18 Multivitamins, Thera [Multivitamin 1 tab PO DAILY@1200 05/26/18 08/15/18 (formulary)] Niacin (Inositol Niacinate) 500 mg PO DAILY@1200 05/26/18 08/15/18 [Niacin 500 mg Capsule] carBAMazepine [Carbamazepine ER] 300 mg PO BID 05/26/18 08/15/18 Previous Rx's Medication Instructions Recorded Folic Acid 1 mg PO DAILY@1200 #30 tab 06/24/17 Thiamine [Vitamin B-1] 100 mg PO DAILY@1200 #30 tab 06/24/17 lamoTRIgine [LaMICtal] 100 mg PO BID #60 tab 06/24/17 Amoxicillin/Potassium Clav 1 each PO Q12HR #20 tab 03/27/19 [Augmentin 875-125 Tablet] Allergies Allergy/AdvReac Type Severity Reaction Status Date / Time No Known Allergies Allergy Verified 10/30/19 18:14 Review of Systems ROS Statement: Those systems with pertinent positive or pertinent negative responses have been documented in the HPI. ROS Other: All systems not noted in ROS Statement are negative. Constitutional: Denies: fever Eyes: Denies: eye pain ENT: Denies: ear pain Respiratory: Denies: cough Cardiovascular: Denies: chest pain Endocrine: Reports: fatigue Gastrointestinal: Denies: abdominal pain Genitourinary: Denies: dysuria Musculoskeletal: Denies: back pain Skin: Denies: rash Neurological: Denies: headache, weakness Past Medical History Past Medical History: CVA/TIA, Diabetes Mellitus, Hyperlipidemia, Hypertension, Memory Impairment, Seizure Disorder, Sleep Apnea/CPAP/BIPAP Additional Past Medical History / Comment(s): CVA & TIA-some slight residual left sided weakness, "borderline diabetes", not using CPAP, being D/C today from [facility]rehab due to a fall down some stairs 5 weeks ago-thought possibly from seizure, now not sure if that's what happened, has vagus nerve stimulator, last seizure per spouse last week @[facility], see Dr Contreras H & P History of Any Multi-Drug Resistant Organisms: None Reported Past Surgical History: Adenoidectomy, Tonsillectomy Additional Past Surgical History / Comment(s): TUBES IN EARS, VAGUS NERVE STIMULATOR IMPLANT Past Anesthesia/Blood Transfusion Reactions: Previous Problems w/ Anesthesia Additional Past Anesthesia/Blood Transfusion Reaction / Comment(s): STATES A LONG TIME TO WAKE UP AFTER ANESTHESIA. Past Psychological History: No Psychological Hx Reported Smoking Status: Never smoker Past Alcohol Use History: None Reported Past Drug Use History: None Reported - Past Family History Father Family Medical History: No Reported History Mother Family Medical History: No Reported History Brother(s) Family Medical History: Cancer Additional Family Medical History / Comment(s): PROSTATE CANCER WITH METS. General Exam Limitations: altered mental status General appearance: alert, in no apparent distress Head exam: Present: normocephalic Eye exam: Present: normal appearance, PERRL, EOMI ENT exam: Present: normal oropharynx, other (Nasal abrasion that was reported from a previous fall) Neck exam: Present: normal inspection. Absent: tenderness Respiratory exam: Present: normal lung sounds bilaterally Cardiovascular Exam: Present: regular rate, normal rhythm GI/Abdominal exam: Present: soft. Absent: tenderness Extremities exam: Present: normal inspection Neurological exam: Present: oriented X3, CN II-XII intact, other (Patient is drowsy but arouses to voice). Absent: motor sensory deficit Expanded Neurological exam: Present: protecting the airway Patient oriented to: Present: person, place, time Speech: Present: fluid speech Motor strength exam: RUE: 4, LUE: 4, RLE: 4, LLE: 4 Eye Response: (3) open to voice Motor Response: (6) obeys commands Verbal Response: (5) oriented Psychiatric exam: Present: flat affect Skin exam: Present: normal color Course Vital Signs 10/30/19 10/30/19 10/30/19 18:05 18:47 20:22 Temperature 98.1 F Pulse Rate 89 79 78 Respiratory 18 18 18 Rate Blood Pressure 122/87 109/77 113/82 O2 Sat by Pulse 93 L 94 L Oximetry EKG Findings - EKG Comments: EKG Findings:: Normal sinus rhythm at 81. [place] 168. QRS 96. QT 390. QTC 453. Left axis. Normal QRS. No acute ST change. Medical Decision Making - Medical Decision Making Patient reevaluated and remains drowsy but arousable. Case discussed with Dr. Licona, who will admit for Dr. Smyth. - Lab Data Result diagrams: 10/30/19 20:20 10/30/19 18:27 Lab Results 10/30/19 10/30/19 Range/Units 18:27 20:20 WBC 14.0 H (3.8-10.6) k/uL RBC 4.65 (4.30-5.90) m/uL Hgb 14.8 (13.0-17.5) gm/dL Hct 44.3 (39.0-53.0) % MCV 95.2 (80.0-100.0) fL MCH 31.8 (25.0-35.0) pg MCHC 33.4 (31.0-37.0) g/dL RDW 13.4 (11.5-15.5) % Plt Count 263 (150-450) k/uL Neutrophils % 91 % Lymphocytes % 5 % Monocytes % 3 % Eosinophils % 1 % Basophils % 0 % Neutrophils # 12.7 H (1.3-7.7) k/uL Lymphocytes # 0.7 L (1.0-4.8) k/uL Monocytes # 0.4 (0-1.0) k/uL Eosinophils # 0.1 (0-0.7) k/uL Basophils # 0.0 (0-0.2) k/uL Sodium 138 (137-145) mmol/L Potassium 5.5 H (3.5-5.1) mmol/L Chloride 104 (98-107) mmol/L Carbon Dioxide 22 (22-30) mmol/L Anion Gap 12 mmol/L BUN 18 (9-20) mg/dL Creatinine 1.31 H (0.66-1.25) mg/dL Est GFR (CKD-EPI)AfAm 72 (>60 ml/min/1.73 sqM) Est GFR (CKD-EPI)NonAf 62 (>60 ml/min/1.73 sqM) Glucose 93 (74-99) mg/dL Calcium 9.8 (8.4-10.2) mg/dL Total Bilirubin 1.3 (0.2-1.3) mg/dL AST 76 H (17-59) U/L ALT 27 (4-49) U/L Alkaline Phosphatase 92 (38-126) U/L Total Protein 8.8 H (6.3-8.2) g/dL Albumin 5.2 H (3.5-5.0) g/dL Valproic Acid 62.8 ug/mL Carbamazepine 7.3 ug/mL - Radiology Data Radiology results: report reviewed (Computed tomography scan of brain shows mild atrophy. No acute process) Disposition Clinical Impression: Postictal state Disposition: ADMITTED IP TO THIS HOSP Is patient prescribed a controlled substance at d/c from ED?: No Referrals: Aman Smyth MD [Primary Care Provider] - 1-2 days Decision Time: 21:14
[2019-10-30 18:48] LABS: Albumin 5.2 g/dL (3.5-5.0); Calcium 9.8 mg/dL (8.4-10.2); Carbamazepine (Tegretol) 7.3 ug/mL; Total Bilirubin 1.3 mg/dL (0.2-1.3); Total Protein 8.8 g/dL (6.3-8.2)
[2019-10-30 18:52] LABS: Valproic Acid (Depakene) 62.8 ug/mL
[2019-10-30 18:56] LABS: Potassium 5.5 mmol/L (3.5-5.1)
[2019-10-30] MEDS ORDERED: DIVALPROEX 500 MG TABLET.DR PO STA (19:16)
--- NOTE | 2019-10-30 19:36 | CT ---
EXAMINATION TYPE: CT brain wo con DATE OF EXAM: 10/30/2019 COMPARISON: 08/15/2018 HISTORY: Seizure. Pt found unresponsive. Hx falls/seizures. CT DLP: 1129.4 mGycm Automated exposure control for dose reduction was used. There is some mild cerebral atrophy. There is no mass effect nor midline shift. There is no sign of i ntracranial hemorrhage. The calvarium is intact. There is no evidence of cerebral edema. There is lit tle pneumatization of the mastoid sinuses. IMPRESSION: Mild atrophy. No acute intracranial abnormality. No change.
[2019-10-30 20:31] LABS: Basophils % (A) 0 %; Eosinophils # (A) 0.1 k/uL (0-0.7); Eosinophils % (A) 1 %; HCT 44.3 % (39.0-53.0); HGB 14.8 gm/dL (13.0-17.5); Lymphocytes # (A) 0.7 k/uL (1.0-4.8); Lymphocytes % (A) 5 %; MCH 31.8 pg (25.0-35.0); MCHC 33.4 g/dL (31.0-37.0); MCV 95.2 fL (80.0-100.0); Monocytes # (A) 0.4 k/uL (0-1.0); Monocytes % (A) 3 %; Neutrophils # (A) 12.7 k/uL (1.3-7.7); Neutrophils % (A) 91 %; Platelet Count 263 k/uL (150-450); RBC 4.65 m/uL (4.30-5.90); RDW 13.4 % (11.5-15.5)
[2019-10-30] MEDS ORDERED: LORazepam 2 MG/ML INJ IV PRN (21:15)
[2019-10-30] MEDS ORDERED: NALOXONE 0.4 MG/ML 1 ML VIAL IV PRN (21:15)
[2019-10-30 23:08] LABS: Amorphous Sediment,Urine Occasional /hpf; Appearance,Urine Turbid (Clear); Bilirubin,Urine Negative (Negative); Blood,Urine Negative (Negative); Color,Urine Yellow; Glucose,Urine (UA) Negative (Negative); Granular Casts,Urine 1 /lpf (0); Hyaline Casts,Urine 32 /lpf (0-2); Ketones,Urine 2+ (Negative); Leukocyte Esterase,Urine Negative (Negative); Mucus,Urine Moderate /hpf; Nitrite,Urine Negative (Negative); PH, Urine 5.5 (5.0-8.0); Protein,Urine 2+ (Negative); RBC,Urine 1 /hpf (0-5); Specific Gravity,Urine 1.024 (1.001-1.035); Sperm,Urine Rare /hpf; Squamous Epithelial Cell,Urine <1 /hpf (0-4); Urobilinogen,Urine <2.0 mg/dL (<2.0); WBC,Urine 6 /hpf (0-5)
[2019-10-31] MEDS: lamoTRIgine 25 MG TAB PO SCH ×3 (00:17→20:08)
[2019-10-31] MEDS: DIVALPROEX ER 500 MG TAB.ER.24H PO SCH ×3 (00:17→20:09)
[2019-10-31] MEDS: carBAMazepine 300 MG CPMP.12HR PO SCH ×3 (00:17→20:08)
[2019-10-31] MEDS: levETIRAcetam 500 MG TAB PO SCH ×3 (00:17→20:08)
[2019-10-31] MEDS: lamoTRIgine 100 MG TAB PO SCH ×3 (00:17→20:08)
[2019-10-31] MEDS: DIVALPROEX ER 250 MG TAB.ER.24H PO SCH ×3 (00:17→20:09)
[2019-10-31] MEDS: CLOPIDOGREL 75 MG TAB PO SCH (08:19)
[2019-10-31] MEDS: amLODIPine 2.5 MG TAB PO SCH (08:20)
[2019-10-31] MEDS ORDERED: NON FORMULARY DRUG (Folic Acid [Folic Acid] 0.8 MG) PO SCH (09:00)
[2019-10-31] MEDS ORDERED: SODIUM POLYSTYRENE SULFONATE 15 GM/60 ML BOTTLE PO STA (10:43)
[2019-10-31] MEDS: SODIUM CHLORIDE 0.9% 1,000 ML IV SCH ×2 (11:24→18:09)
[2019-10-31 11:31] LABS: African American GFR (CKD) >90 (>60 ml/min/1.73 sqM); Anion Gap 8 mmol/L; Blood Urea Nitrogen 20 mg/dL (9-20); Calcium 8.9 mg/dL (8.4-10.2); Carbon Dioxide 28 mmol/L (22-30); Chloride 102 mmol/L (98-107); Creatine Kinase 998 U/L (55-170); Glucose 94 mg/dL (74-99); Non-African American GFR(CKD) 80 (>60 ml/min/1.73 sqM); Potassium 3.7 mmol/L (3.5-5.1); Sodium 138 mmol/L (137-145)
[2019-10-31] MEDS: ENOXAPARIN 40 MG/0.4 ML SYRINGE SQ SCH (11:32)
[2019-10-31] MEDS: THIAMINE 100 MG TAB PO SCH (11:32)
[2019-10-31] MEDS: MULTIVITAMINS, THERA 1 EACH TAB PO SCH (11:32)
[2019-10-31] MEDS: CHOLECALCIFEROL 1,000 UNIT TAB PO SCH (11:32)
[2019-10-31] MEDS ORDERED: NIACIN 500 MG PO SCH (12:00)
--- NOTE | 2019-10-31 13:39 | P.CNNES ---
History of Present Illness Consult date: 10/31/19 Requesting physician: Ronal Camara Reason for Consult: Altered mental status, seizure disorder History of Present Illness: Patient is a 54-year-old left-handed male presented to the ER yesterday with altered mental status. Patient was found at home unresponsive, last seen a few hours prior to that. Patient states it feels like he had a seizure. CT head is normal. EKG normal sinus rhythm. Patient had an EEG on 06/22/2017, which was normal. Another EEG from 07/29/2005 and showed moderate background slowing. Patient states he has history of seizures since he was age 12. Patient currently is on Depakote 750 mg every 12 hours, Lamictal 150 mg twice a day, Keppra 1000 mg twice a day and Carbatrol 300 mg twice a day. Patient follows up with Dr. Grigsby. Patient states that his seizure localizes to the right side. Patient gets petit mal seizures. He states his "stomach gets going", then gets weak feeling. His seizure lasts for couple minutes. He denies any tongue bite or loss of control of urine. He gets seizures every month or every 1-2 months. He states he is tolerating seizure medications well, denies any side effects. He states he has not missed dose of seizure medications. Patient's Depakote is 62.8 and carbamazepine 7.3. Lamictal and Keppra levels are pending. Patient denies tobacco alcohol, no use of marijuana. Denies hypertension or diabetes. He lives with his . Has no children. Review of Systems Denies headache, double vision, dizziness, denies oral trauma. Denies any loss of control of urine. Denies abdominal pain, nausea vomiting diarrhea. No chest pain. All other review systems unremarkable. Past Medical History Past Medical History: CVA/TIA, Diabetes Mellitus, Hyperlipidemia, Hypertension, Memory Impairment, Seizure Disorder, Sleep Apnea/CPAP/BIPAP Additional Past Medical History / Comment(s): CVA & TIA-some slight residual left sided weakness, "borderline diabetes", no CPAP, has vagus nerve stimulator History of Any Multi-Drug Resistant Organisms: None Reported Past Surgical History: Adenoidectomy, Tonsillectomy Additional Past Surgical History / Comment(s): TUBES IN EARS, VAGUS NERVE STIMULATOR IMPLANT Past Anesthesia/Blood Transfusion Reactions: Previous Problems w/ Anesthesia Additional Past Anesthesia/Blood Transfusion Reaction / Comment(s): STATES A LONG TIME TO WAKE UP AFTER ANESTHESIA. Past Psychological History: No Psychological Hx Reported Additional Psychological History / Comment(s): . Smoking Status: Never smoker Past Alcohol Use History: None Reported Past Drug Use History: None Reported - Past Family History Father Family Medical History: No Reported History Mother Family Medical History: No Reported History Brother(s) Family Medical History: Cancer Additional Family Medical History / Comment(s): PROSTATE CANCER WITH METS. Medications and Allergies Home Medications Medication Instructions Recorded Confirmed Type Cholecalciferol [Vitamin D3 (25 5,000 unit PO DAILY@1200 07/29/15 10/30/19 History Mcg = 1000 Iu)] Clopidogrel [Plavix] 75 mg PO DAILY 03/16/17 10/30/19 History levETIRAcetam [Keppra] 1,000 mg PO BID 06/22/17 10/30/19 History Thiamine [Vitamin B-1] 100 mg PO DAILY@1200 #30 tab 06/24/17 10/30/19 Rx lamoTRIgine [LaMICtal] 100 mg PO BID #60 tab 06/24/17 10/30/19 Rx Divalproex ER [Depakote ER] 500 mg PO Q12H 05/26/18 10/30/19 History Multivitamins, Thera [Multivitamin 1 tab PO DAILY@1200 05/26/18 10/30/19 History (formulary)] Niacin (Inositol Niacinate) 500 mg PO DAILY@1200 05/26/18 10/30/19 History [Niacin 500 mg Capsule] carBAMazepine [Carbamazepine ER] 300 mg PO BID 05/26/18 10/30/19 History Atorvastatin Calcium [Lipitor] 80 mg PO HS 10/30/19 10/30/19 History Divalproex ER [Depakote ER] 250 mg PO Q12H 10/30/19 10/30/19 History Folic Acid 0.8 mg PO DAILY 10/30/19 10/30/19 History amLODIPine [Norvasc] 2.5 mg PO DAILY 10/30/19 10/30/19 History lamoTRIgine [LaMICtal] 50 mg PO BID 10/30/19 10/30/19 History rOPINIRole HCL [Requip] 0.5 mg PO BID 10/30/19 10/30/19 History Allergies Allergy/AdvReac Type Severity Reaction Status Date / Time No Known Allergies Allergy Verified 10/30/19 21:48 Physical Examination - Vital Signs Vital Signs: Vital Signs Temp Pulse Pulse Resp BP BP Pulse Ox 10/31/19 08:40 95 10/31/19 04:42 98.2 F 73 20 100/63 97 10/31/19 00:00 76 16 10/30/19 23:20 98.2 F 82 16 120/80 97 10/30/19 23:02 73 18 110/75 96 10/30/19 22:03 82 18 124/86 97 10/30/19 21:21 81 18 106/74 10/30/19 20:22 78 18 113/82 10/30/19 18:47 79 18 109/77 94 L 10/30/19 18:05 98.1 F 89 18 122/87 93 L Intake and Output 10/30/19 10/31/19 10/31/19 22:59 06:59 14:59 Intake Total 120 240 Balance 120 240 Intake: Oral 120 240 Other: # Voids 1 Weight 91.626 kg On examination patient is a middle aged male, in no distress. Patient is mildly mentally slow, but awake, in no distress. Speech and language functions are normal. Attention and concentration fund of knowledge is adequate. On cranial nerve examination pupils are round and reactive to light, visual kaur are full on confrontation, extraocular muscles are intact with no nystagmus. Face is symmetric and tongue protrudes to the midline. Palatal elevation sensation normal. Hearing and shoulder shrug normal. On muscle strength testing there is no pronator drift and the strength is normal in arms and legs distally and proximally. Deep tendon reflexes are 1+ plantars downgoing. Sensory touch is equal. Patient is very tremulous for [id number] testing bilaterally, right more than left. No definitive ataxia. No tremors or ataxia for [id number] testing. Tone and bulk of muscles normal. Gait deferred. There is no bruit, S1 and S2 audible. Peripheral pulses present. Abdomen soft nontender. Chest is clear. Results - Laboratory Findings CBC and BMP: 10/30/19 20:20 10/31/19 10:54 Abnormal Lab Findings: Abnormal Labs 07/27/20 07/27/20 07/27/20 18:27 20:20 22:19 WBC 14.0 H Neutrophils # 12.7 H Lymphocytes # 0.7 L Potassium 5.5 H Creatinine 1.31 H AST 76 H Total Protein 8.8 H Albumin 5.2 H Urine Protein 2+ H Urine Ketones 2+ H Urine WBC 6 H Amorphous Sediment Occasional H Hyaline Casts 32 H Urine Mucus Moderate H Assessment and Plan Assessment: * 54-year-old male with history of medically intractable epilepsy, admitted with a breakthrough seizure. Patient states that he gets seizures about once a month. Patient already is on multiple antiepileptic medications. Plan: * Patient already is on multiple antiepileptic medications. The levels of Depakote and Tegretol is therapeutic. Still awaiting Keppra and Lamictal levels. * Patient does not want to make any changes in his seizure medication. He states that he will follow up with his neurologist Dr. Grigsby in 1-2 weeks. * As patient continues to have frequent seizures, he is a candidate for prolonged EEG monitoring at comprehensive epilepsy monitoring unit to evaluate for possible surgical treatment of medically intractable epilepsy. * Patient should not drive for 6 months, operate dangerous machinery, climbing ladders or unsupervised swimming. * Neurologically clear for discharge, to follow-up with his neurologist. Keppra and Lamictal levels can be followed up with his primary neurologist.
[2019-10-31] MEDS ORDERED: ATORVASTATIN 80 MG TAB PO SCH (21:00)
[2019-10-31 21:26] VITALS: TEMP 98.2
--- NOTE | 2019-10-31 23:44 | P.HPIM ---
History of Present Illness H&P Date: 10/31/19 Chief Complaint: seizure History of present complaint: This is a 54-year-old patient of Dr. Aman Smyth. Chronic stable medical conditions include diabetes, hypertension, hyperlipidemia, obstructive sleep apnea and does not use a CPAP machine. Patient does have a vagus no stability. This followed by , neurologist. Patient is a antiseizure medications. Patient's had been out of the house. Patient should undergo a seizure. She came back and found the patient to be decreased responsiveness. Patient brought into the ER for the same. This morning patient, patient is feeling better but not back to his baseline. No fever no chills. 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 . Physical examination: VITAL SIGNS: 98.2, 73, 100/63, 97% on room air GENERAL: BMI 32.6, laying in a better bit tired but awake. EYES: Pupils equal. Conjunctiva normal. HEENT: External appearance of nose and ears normal, oral cavity grossly normal. NECK: JVD not raised; masses not palpable. HEART: First and second heart sounds are normal; no edema. LUNGS: Respiratory rate normal; clear to auscultation. ABDOMEN: Soft, nontender, liver spleen not palpable, no masses palpable. PSYCH: [Alert and oriented x3; mood and affect tired l. NEUROLOGICAL: Cranial nerves grossly intact; no facial asymmetry, power and sensation grossly intact. LYMPHATICS: No lymph nodes palpable in the axilla and neck INVESTIGATIONS, reviewed in the clinical context: White count 14 hemoglobin 14.8 potassium 5. 5 creatinine 1.31 EKG tracing personally reviewed by me-normal sinus rhythm Computed tomography scan of the brain-nothing acute Assessment: -Breakthrough seizure epilepsy and the patient is on multiple medications. No obvious precipitating cause. -Diabetes mellitus type 2 -Hyperlipidemia -Essential hypertension Plan: Neurology was consulted. Home medications resumed. Seizure precautions in place. DVT prophylaxis. Care was discussed with the patient. Past Medical History Past Medical History: CVA/TIA, Diabetes Mellitus, Hyperlipidemia, Hypertension, Memory Impairment, Seizure Disorder, Sleep Apnea/CPAP/BIPAP Additional Past Medical History / Comment(s): CVA & TIA-some slight residual left sided weakness, "borderline diabetes", no CPAP, has vagus nerve stimulator History of Any Multi-Drug Resistant Organisms: None Reported Past Surgical History: Adenoidectomy, Tonsillectomy Additional Past Surgical History / Comment(s): TUBES IN EARS, VAGUS NERVE STIMULATOR IMPLANT Past Anesthesia/Blood Transfusion Reactions: Previous Problems w/ Anesthesia Additional Past Anesthesia/Blood Transfusion Reaction / Comment(s): STATES A LONG TIME TO WAKE UP AFTER ANESTHESIA. Past Psychological History: No Psychological Hx Reported Additional Psychological History / Comment(s): . Smoking Status: Never smoker Past Alcohol Use History: None Reported Past Drug Use History: None Reported - Past Family History Father Family Medical History: No Reported History Mother Family Medical History: No Reported History Brother(s) Family Medical History: Cancer Additional Family Medical History / Comment(s): PROSTATE CANCER WITH METS. Medications and Allergies Home Medications Medication Instructions Recorded Confirmed Type Cholecalciferol [Vitamin D3 (25 5,000 unit PO DAILY@1200 07/28/10/30/19 History Mcg = 1000 Iu)] Clopidogrel [Plavix] 75 mg PO DAILY 03/16/17 10/30/19 History levETIRAcetam [Keppra] 1,000 mg PO BID 06/22/17 10/30/19 History Thiamine [Vitamin B-1] 100 mg PO DAILY@1200 #30 tab 06/24/17 10/30/19 Rx lamoTRIgine [LaMICtal] 100 mg PO BID #60 tab 06/24/17 10/30/19 Rx Divalproex ER [Depakote ER] 500 mg PO Q12H 05/26/18 10/30/19 History Multivitamins, Thera [Multivitamin 1 tab PO DAILY@1200 05/26/18 10/30/19 History (formulary)] Niacin (Inositol Niacinate) 500 mg PO DAILY@1200 05/26/18 10/30/19 History [Niacin 500 mg Capsule] carBAMazepine [Carbamazepine ER] 300 mg PO BID 05/26/18 10/30/19 History Atorvastatin Calcium [Lipitor] 80 mg PO HS 10/30/19 10/30/19 History Divalproex ER [Depakote ER] 250 mg PO Q12H 10/30/19 10/30/19 History Folic Acid 0.8 mg PO DAILY 10/30/19 10/30/19 History amLODIPine [Norvasc] 2.5 mg PO DAILY 10/30/19 10/30/19 History lamoTRIgine [LaMICtal] 50 mg PO BID 10/30/19 10/30/19 History rOPINIRole HCL [Requip] 0.5 mg PO BID 10/30/19 10/30/19 History Allergies Allergy/AdvReac Type Severity Reaction Status Date / Time No Known Allergies Allergy Verified 10/30/19 21:48 Physical Exam Vitals: Vital Signs Temp Pulse Pulse Resp BP BP Pulse Ox 10/31/19 08:40 95 10/31/19 04:42 98.2 F 73 20 100/63 97 10/31/19 00:00 76 16 10/30/19 23:20 98.2 F 82 16 120/80 97 10/30/19 23:02 73 18 110/75 96 10/30/19 22:03 82 18 124/86 97 10/30/19 21:21 81 18 106/74 10/30/19 20:22 78 18 113/82 10/30/19 18:47 79 18 109/77 94 L 10/30/19 18:05 98.1 F 89 18 122/87 93 L Intake and Output 10/30/19 10/31/19 10/31/19 22:59 06:59 14:59 Intake Total 120 240 Balance 120 240 Intake: Oral 120 240 Other: # Voids 1 Weight 91.626 kg Results CBC & Chem 7: 10/30/19 20:20 10/31/19 10:54 Labs: Abnormal Lab Results - Last 24 Hours (Table) 10/30/19 10/30/19 10/30/19 Range/Units 18:27 20:20 22:19 WBC 14.0 H (3.8-10.6) k/uL Neutrophils # 12.7 H (1.3-7.7) k/uL Lymphocytes # 0.7 L (1.0-4.8) k/uL Potassium 5.5 H (3.5-5.1) mmol/L Creatinine 1.31 H (0.66-1.25) mg/dL AST 76 H (17-59) U/L Total Protein 8.8 H (6.3-8.2) g/dL Albumin 5.2 H (3.5-5.0) g/dL Urine Protein 2+ H (Negative) Urine Ketones 2+ H (Negative) Urine WBC 6 H (0-5) /hpf Amorphous Sediment Occasional H (None) /hpf Hyaline Casts 32 H (0-2) /lpf Urine Mucus Moderate H (None) /hpf Thrombosis Risk Factor Assmnt - Choose All That Apply Any of the Below Risk Factors Present?: Yes Each Factor Represents 1 point: Age 41-60 years, Obesity (BMI >25) Thrombosis Risk Factor Assessment Total Risk Factor Score: 2 Thrombosis Risk Factor Assessment Level: Low Risk
[2019-11-01] MEDS: SODIUM CHLORIDE 0.9% 1,000 ML IV SCH ×2 (01:12→08:36)
[2019-11-01 05:17] VITALS: BP 122/83; PULSE 78; RESP 18
[2019-11-01 07:34] LABS: Levetiracetam (Keppra) 24.2 ug/mL (3.0-60.0)
[2019-11-01] MEDS: ENOXAPARIN 40 MG/0.4 ML SYRINGE SQ SCH (07:44)
[2019-11-01] MEDS: amLODIPine 2.5 MG TAB PO SCH (07:44)
[2019-11-01] MEDS: CLOPIDOGREL 75 MG TAB PO SCH (07:44)
[2019-11-01] MEDS: lamoTRIgine 25 MG TAB PO SCH (07:44)
[2019-11-01] MEDS: lamoTRIgine 100 MG TAB PO SCH (07:44)
[2019-11-01] MEDS: levETIRAcetam 500 MG TAB PO SCH (07:44)
[2019-11-01] MEDS: carBAMazepine 300 MG CPMP.12HR PO SCH (07:44)
[2019-11-01 08:36] LABS: Lamotrigine (Lamictal) 5.9 ug/mL (2.0-15.0)
[2019-11-01] MEDS: CHOLECALCIFEROL 1,000 UNIT TAB PO SCH (11:47)
[2019-11-01] MEDS: DIVALPROEX ER 500 MG TAB.ER.24H PO SCH (11:47)
[2019-11-01] MEDS: THIAMINE 100 MG TAB PO SCH (11:47)
[2019-11-01] MEDS: MULTIVITAMINS, THERA 1 EACH TAB PO SCH (11:47)
[2019-11-01] MEDS: DIVALPROEX ER 250 MG TAB.ER.24H PO SCH (11:47)
--- NOTE | 2019-11-01 14:52 | P.PN ---
Subjective Progress Note Date: 11/01/19 Patient feels fine, ready to go home. No further seizures. Objective - Vital Signs Vital signs: Vital Signs Temp 98.2 F 11/01/19 05:17 Pulse 78 11/01/19 05:17 Resp 18 11/01/19 05:17 BP 122/83 11/01/19 05:17 Pulse Ox 93 L 11/01/19 05:17 Intake & Output 10/31/19 11/01/19 11/01/19 18:59 06:59 18:59 Intake Total 480 2040 Balance 480 2040 Intake: Intake, IV Titration 1560 Amount Sodium Chloride 0.9% 1, 1560 000 ml @ 130 mls/hr IV . Q7H42M [facility] Rx#:[id number] Oral 480 480 Other: # Voids 1 2 # Bowel Movements 1 - Exam Nonfocal. - Labs CBC & Chem 7: 10/30/19 20:20 10/31/19 10:54 Assessment and Plan Assessment: * 54-year-old male with history of medically intractable epilepsy, admitted with a breakthrough seizure. Patient states that he gets seizures about once a month. Patient already is on multiple antiepileptic medications. Plan: * Patient already is on multiple antiepileptic medications. * Depakote 62.8, Tegretol 7.3 (4-12), Keppra 24.2 (3-60), Lamictal 5.9 (2-15). All antiepileptic drug levels are therapeutic. He continues to have monthly seizures. * Patient does not want to make any changes in his seizure medication. He states that he will follow up with his neurologist Dr. Grigsby in 1-2 weeks. * As patient continues to have frequent seizures, he is a candidate for prolong ed EEG monitoring at [facility] epilepsy monitoring unit to evaluate for possible surgical treatment of medically intractable epilepsy. * Patient should not drive for 6 months, operate dangerous machinery, climbing ladders or unsupervised swimming. * Neurologically clear for discharge, to follow-up with his neurologist.
--- NOTE | 2019-11-02 18:57 | P.DS ---
Providers Date of admission: 10/30/19 21:15 Expected date of discharge: 11/01/19 Attending physician: Kurtis Licona Consults: 10/30/19 21:16 Consult Physician Urgent Consulting Provider: Valdez Denson Consult Reason/Comments: ams, seizure d/o Do you want consulting provider notified?: Yes Primary care physician: Aman Smyth [facility] Course: Chief Complaint: seizure History of present complaint: This is a 54-year-old patient of Dr. Aman Smyth. Chronic stable medical conditions include diabetes, hypertension, hyperlipidemia, obstructive sleep apnea and does not use a CPAP machine. Patient does have a vagus nerve stimulator This followed by , neurologist. Patient is a antiseizure medications. Patient's had been out of the house. . She came back and found the patient to be decreased responsiveness. Patient brought into the ER for the same. Patient fully recovered. Seen by neurology. No change in medications. Patient will follow up with his neurologist. Consultation: Dr. Herbert from neurology Physical examination: VITAL SIGNS: 98.2, 78, 18, 122/83, 93% room air GENERAL: Laying in bed, comfortable. EYES: Pupils equal. Conjunctiva normal. HEENT: External appearance of nose and ears normal, oral cavity grossly normal. NECK: JVD not raised; masses not palpable. HEART: First and second heart sounds are normal; no edema. LUNGS: Respiratory rate normal; clear to auscultation. ABDOMEN: Soft, nontender, liver spleen not palpable, no masses palpable. PSYCH: [Alert and oriented x3; mood and affect tired l. NEUROLOGICAL: Cranial nerves grossly intact; no facial asymmetry, power and sensation grossly intact. INVESTIGATIONS, reviewed in the clinical context: White count 14 hemoglobin 14.8 potassium 5. 5 creatinine 1.31 EKG tracing personally reviewed by me-normal sinus rhythm Computed tomography scan of the brain-nothing acute COVID 19 P/Cr-not detected Valproic acid, carbamazepine, Lamictal, Keppra levels-62.8/7.3/5.9/24.2 Assessment: -Breakthrough seizure epilepsy and the patient is on multiple medications. No obvious precipitating cause. No change in medications -Diabetes mellitus type 2 -Hyperlipidemia -Essential hypertension- -Metabolic encephalopathy/postictal improved Disposition: Home Patient Condition at Discharge: Stable Plan - Discharge Summary New Discharge Prescriptions: Continue Cholecalciferol [Vitamin D3 (25 Mcg = 1000 Iu)] 5,000 unit PO DAILY@1200 Clopidogrel [Plavix] 75 mg PO DAILY levETIRAcetam [Keppra] 1,000 mg PO BID lamoTRIgine [LaMICtal] 100 mg PO BID #60 tab Thiamine [Vitamin B-1] 100 mg PO DAILY@1200 #30 tab Divalproex ER [Depakote ER] 500 mg PO Q12H Niacin (Inositol Niacinate) [Niacin 500 mg Capsule] 500 mg PO DAILY@1200 carBAMazepine [carBAMazepine ER] 300 mg PO BID Multivitamins, Thera [Multivitamin (formulary)] 1 tab PO DAILY@1200 rOPINIRole HCL [Requip] 0.5 mg PO BID lamoTRIgine [LaMICtal] 50 mg PO BID Divalproex ER [Depakote ER] 250 mg PO Q12H amLODIPine [Norvasc] 2.5 mg PO DAILY Atorvastatin Calcium [Lipitor] 80 mg PO HS Folic Acid 0.8 mg PO DAILY Discharge Medication List Cholecalciferol [Vitamin D3 (25 Mcg = 1000 Iu)] 5,000 unit PO DAILY@1200 07/29/15 [History] Clopidogrel [Plavix] 75 mg PO DAILY 03/16/17 [History] levETIRAcetam [Keppra] 1,000 mg PO BID 06/22/17 [History] Thiamine [Vitamin B-1] 100 mg PO DAILY@1200 #30 tab 06/24/17 [Rx] lamoTRIgine [LaMICtal] 100 mg PO BID #60 tab 06/24/17 [Rx] Divalproex ER [Depakote ER] 500 mg PO Q12H 05/26/18 [History] Multivitamins, Thera [Multivitamin (formulary)] 1 tab PO DAILY@1200 05/26/18 [History] Niacin (Inositol Niacinate) [Niacin 500 mg Capsule] 500 mg PO DAILY@1200 05/26/18 [History] carBAMazepine [carBAMazepine ER] 300 mg PO BID 05/26/18 [History] Atorvastatin Calcium [Lipitor] 80 mg PO HS 10/30/19 [History] Divalproex ER [Depakote ER] 250 mg PO Q12H 10/30/19 [History] Folic Acid 0.8 mg PO DAILY 10/30/19 [History] amLODIPine [Norvasc] 2.5 mg PO DAILY 10/30/19 [History] lamoTRIgine [LaMICtal] 50 mg PO BID 10/30/19 [History] rOPINIRole HCL [Requip] 0.5 mg PO BID 10/30/19 [History] Follow up Appointment(s)/Referral(s): Aman Smyth MD [Primary Care Provider] - 11/16/19 11:30 am Jerad Grigsby MD [STAFF PHYSICIAN] - 12/12/19 1:00 pm (This is an appointment that you already made and it will be a virtual appointment.) Patient Instructions/Handouts: Epilepsy (DC) Activity/Diet/Wound Care/Special Instructions: Per Dr. Denson-(neurologist) -patient should not drive for 6 months, operate dangerous machinery, climb ladders or swim unsupervised. Discharge Disposition: HOME SELF-CARE
== END 2019-11-01 12:48 | disposition home or self-care (01) ==
LOC: EC 17:58 → 5NMEDONC 21:15
PROVIDERS: ADMIT Hospitalist; ATTEND Hospitalist
DX: G40.A09 Absence epileptic syndrome, not intractable, without status epilepticus (principal); E78.5 Hyperlipidemia, unspecified; G47.33 Obstructive sleep apnea (adult) (pediatric); I10 Essential (primary) hypertension; R41.3 Other amnesia; I69.354 Hemiplegia and hemiparesis following cerebral infarction affecting left non-dominant side; Z98.890 Other specified postprocedural states; Z96.82 Presence of neurostimulator; Z80.42 Family history of malignant neoplasm of prostate; E11.9 Type 2 diabetes mellitus without complications; E66.9 Obesity, unspecified; Z68.32 Body mass index [BMI] 32.0-32.9, adult; G93.41 Metabolic encephalopathy; Z79.02 Long term (current) use of antithrombotics/antiplatelets; Z79.52 Long term (current) use of systemic steroids; Z79.899 Other long term (current) drug therapy
CPT/HCPCS: 96360; 96361 ×2; 96372 ×2; 99285; 36415; 94760; 93005; 80156; 80164; 80053; 80048; 80175; 80177; 82550; 85025; 81001; 70450; G0378 ×3; U0003; J1650 ×2

== ENCOUNTER → 2020-01-23 | Outpatient (CLI) | payer OTHER, MEDICARE ==
[2020-01-23 15:17] LABS: Chol/HDL Ratio 4.25
== END | disposition home or self-care (01) ==
LOC: LABWHC1 08:27
PROVIDERS: ATTEND Internal Medicine Interventional Cardiology
DX: E78.2 Mixed hyperlipidemia (principal)
CPT/HCPCS: 36415; 80061; 83721; 84450; 84460

== ENCOUNTER → 2021-02-03 | Outpatient (CLI) | payer MEDICARE, OTHER ==
[2021-02-03 15:35] LABS: Chol/HDL Ratio 3.84 Ratio; HDL Cholesterol 45.1 mg/dL (40.00-60.00); LDL Cholesterol,Calculated 82.1 mg/dL (0.0-131.0); VLDL Calculation 45.8 mg/dL (5.00-40.00)
== END | disposition home or self-care (01) ==
LOC: LABWHC1 07:52
PROVIDERS: ATTEND Internal Medicine Interventional Cardiology
DX: E78.2 Mixed hyperlipidemia (principal)
CPT/HCPCS: 36415; 80061; 84450; 84460

== ENCOUNTER 2021-07-12 17:06 | Observation (INO) | payer OTHER, MEDICARE ==
[2021-07-12] MEDS ORDERED: SODIUM CHLORIDE 0.9% 500 ML 500 ML IV STA (17:22)
--- NOTE | 2021-07-12 17:23 | ED ---
Seizure HPI - General Chief Complaint: Seizure Stated Complaint: Seizure Time Seen by Provider: 07/12/21 17:21 Source: patient, EMS Mode of arrival: EMS Limitations: no limitations - History of Present Illness Initial Comments: Jun a pleasant 56-year-old with a history of seizure disorder who is brought to the ER today via EMS for evaluation after being found down outside. Patient reports that he had been out for lunch and was at a bus station waiting to return home when he must of had a seizure and falling forward. Patient was apparently found face down at the bus station with injury to his face, he has no recall of the events. Patient states that he usually has seizures every 2 weeks or so. Cannot currently recall when his last seizure was. States that he is always compliant with his anti-epileptic medications. Follows with neurology out of [place]. She denies any recent illness, no fevers or chills, no nausea or vomiting, he reports he's been eating and drinking well. - Related Data Home Medications Medication Instructions Recorded Confirmed Cholecalciferol [Vitamin D3 (25 5,000 unit PO DAILY@1200 07/29/15 10/30/19 Mcg = 1000 Iu)] Clopidogrel [Plavix] 75 mg PO DAILY 03/16/17 10/30/19 levETIRAcetam [Keppra] 1,000 mg PO BID 06/22/17 10/30/19 Divalproex ER [Depakote ER] 500 mg PO Q12H 05/26/18 10/30/19 Multivitamins, Thera [Multivitamin 1 tab PO DAILY@1200 05/26/18 10/30/19 (formulary)] Niacin (Inositol Niacinate) 500 mg PO DAILY@1200 05/26/18 10/30/19 [Niacin 500 mg Capsule] carBAMazepine [carBAMazepine ER] 300 mg PO BID 05/26/18 10/30/19 Atorvastatin Calcium [Lipitor] 80 mg PO HS 10/30/19 10/30/19 Divalproex ER [Depakote ER] 250 mg PO Q12H 10/30/19 10/30/19 Folic Acid 0.8 mg PO DAILY 10/30/19 10/30/19 amLODIPine [Norvasc] 2.5 mg PO DAILY 10/30/19 10/30/19 lamoTRIgine [LaMICtal] 50 mg PO BID 10/30/19 10/30/19 rOPINIRole HCL [Requip] 0.5 mg PO BID 10/30/19 10/30/19 Previous Rx's Medication Instructions Recorded Thiamine [Vitamin B-1] 100 mg PO DAILY@1200 #30 tab 06/24/17 lamoTRIgine [LaMICtal] 100 mg PO BID #60 tab 06/24/17 Allergies Allergy/AdvReac Type Severity Reaction Status Date / Time No Known Allergies Allergy Verified 10/30/19 21:48 Review of Systems ROS Statement: Those systems with pertinent positive or pertinent negative responses have been documented in the HPI. ROS Other: All systems not noted in ROS Statement are negative. Past Medical History Past Medical History: CVA/TIA, Diabetes Mellitus, Hyperlipidemia, Hypertension, Memory Impairment, Seizure Disorder, Sleep Apnea/CPAP/BIPAP Additional Past Medical History / Comment(s): CVA & TIA-some slight residual left sided weakness, "borderline diabetes", no CPAP, has vagus nerve stimulator History of Any Multi-Drug Resistant Organisms: None Reported Past Surgical History: Adenoidectomy, Tonsillectomy Additional Past Surgical History / Comment(s): TUBES IN EARS, VAGUS NERVE STIMULATOR IMPLANT Past Anesthesia/Blood Transfusion Reactions: Previous Problems w/ Anesthesia Additional Past Anesthesia/Blood Transfusion Reaction / Comment(s): STATES A LONG TIME TO WAKE UP AFTER ANESTHESIA. Past Psychological History: No Psychological Hx Reported Smoking Status: Never smoker Past Alcohol Use History: None Reported Past Drug Use History: None Reported - Past Family History Father Family Medical History: No Reported History Mother Family Medical History: No Reported History Brother(s) Family Medical History: Cancer Additional Family Medical History / Comment(s): PROSTATE CANCER WITH METS. General Exam - General Exam Comments Initial Comments: Physical Exam GENERAL: Patient is well-developed and well-nourished. Patient is nontoxic and well-hydrated and is in no distress. HENT: Abrasion to chin and upper lip Dried epistaxis from left nare EYES: PERRL, EOMI PULMONARY: Unlabored respirations. No audible rales rhonchi or wheezing was noted. CARDIOVASCULAR: There is a regular rate and rhythm without any murmurs gallops or rubs. ABDOMEN: Soft and nontender with normal bowel sounds. SKIN: Facial abrasion : Deferred NEUROLOGIC: Postictal but alert to person, place and time Moving all extremities spontaneously MUSCULOSKELETAL: Normal extremities with adequate strength and full range of motion. No lower extremity swelling or edema. No calf tenderness. PSYCHIATRIC: Normal psychiatric evaluation. Limitations: no limitations Course Vital Signs 07/12/21 07/12/21 17:08 18:45 Temperature 97.0 F L Pulse Rate 115 H 89 Respiratory 20 18 Rate Blood Pressure 153/101 143/93 O2 Sat by Pulse 98 96 Oximetry Medical Decision Making - Medical Decision Making Patient was seen and evaluated, history is obtained from the patient and EMS 56-year-old male some facial trauma after an apparent seizure and being found down. Patient is postictal but was only confuse Labs and imaging were obtained imaging was unremarkable however labs revealed hyponatremia and hyperglycemia, appropriate Depakote level however other antiepileptic levels cannot be processed at our lab and will be send outs. Given the patient seems to have some persistent concussive-like symptoms, headache and confusion I do feel he should be observed and evaluated by neurology, plan was discussed with Dr Vee who accepts - Lab Data Result diagrams: 07/12/21 17:40 07/12/21 17:40 Lab Results 07/12/21 07/12/21 Range/Units 17:40 17:40 WBC 6.6 (3.8-10.6) k/uL RBC 4.88 (4.30-5.90) m/uL Hgb 15.7 (13.0-17.5) gm/dL Hct 45.1 (39.0-53.0) % MCV 92.4 (80.0-100.0) fL MCH 32.1 (25.0-35.0) pg MCHC 34.8 (31.0-37.0) g/dL RDW 14.3 (11.5-15.5) % Plt Count 243 (150-450) k/uL MPV 7.8 Neutrophils % 66 % Lymphocytes % 26 % Monocytes % 6 % Eosinophils % 1 % Basophils % 1 % Neutrophils # 4.3 (1.3-7.7) k/uL Lymphocytes # 1.7 (1.0-4.8) k/uL Monocytes # 0.4 (0-1.0) k/uL Eosinophils # 0.1 (0-0.7) k/uL Basophils # 0.0 (0-0.2) k/uL Sodium 129 L (137-145) mmol/L Potassium 4.2 (3.5-5.1) mmol/L Chloride 94 L (98-107) mmol/L Carbon Dioxide 26 (22-30) mmol/L Anion Gap 9 mmol/L BUN 8 L (9-20) mg/dL Creatinine 0.92 (0.66-1.25) mg/dL Est GFR (CKD-EPI)AfAm >90 (>60 ml/min/1.73 sqM) Est GFR (CKD-EPI)NonAf >90 (>60 ml/min/1.73 sqM) Glucose 198 H (74-99) mg/dL Calcium 9.1 (8.4-10.2) mg/dL Magnesium 1.7 (1.6-2.3) mg/dL Total Bilirubin 0.6 (0.2-1.3) mg/dL AST 40 (17-59) U/L ALT 29 (4-49) U/L Alkaline Phosphatase 81 (38-126) U/L Total Protein 7.8 (6.3-8.2) g/dL Albumin 4.5 (3.5-5.0) g/dL Valproic Acid 66.4 ug/mL - EKG Data -: EKG Interpreted by Pa EKG Comments: EKG was obtained due to seizure, EKG obtained at 1740, rate is 96 rhythm is sinus normal axis, normal intervals no acute ST elevations or depressions no evidence of ischemia, infarction or arrhythmia. Disposition Clinical Impression: Epileptic seizure, generalized, Facial trauma Disposition: ADMITTED IP TO THIS [facility] Instructions (If sedation given, give patient instructions): Seizure/Epilepsy Discharge Instructions & Follow-Up Is patient prescribed a controlled substance at d/c from ED?: No Referrals: Aman Smyth MD [Primary Care Provider] - 1-2 days
[2021-07-12 18:00] LABS: Basophils % (A) 1 %; Eosinophils # (A) 0.1 k/uL (0-0.7); Eosinophils % (A) 1 %; HCT 45.1 % (39.0-53.0); HGB 15.7 gm/dL (13.0-17.5); Lymphocytes # (A) 1.7 k/uL (1.0-4.8); Lymphocytes % (A) 26 %; MCH 32.1 pg (25.0-35.0); MCHC 34.8 g/dL (31.0-37.0); MCV 92.4 fL (80.0-100.0); Mean Platelet Volume 7.8; Monocytes # (A) 0.4 k/uL (0-1.0); Monocytes % (A) 6 %; Neutrophils # (A) 4.3 k/uL (1.3-7.7); Neutrophils % (A) 66 %; Platelet Count 243 k/uL (150-450); RBC 4.88 m/uL (4.30-5.90); RDW 14.3 % (11.5-15.5); WBC 6.6 k/uL (3.8-10.6)
[2021-07-12 18:24] LABS: African American GFR (CKD) >90 (>60 ml/min/1.73 sqM); Anion Gap 9 mmol/L; Blood Urea Nitrogen 8 mg/dL (9-20); Carbon Dioxide 26 mmol/L (22-30); Chloride 94 mmol/L (98-107); Glucose 198 mg/dL (74-99); Potassium 4.2 mmol/L (3.5-5.1); Sodium 129 mmol/L (137-145)
[2021-07-12 18:25] LABS: ALT 29 U/L (4-49); AST 40 U/L (17-59); Albumin 4.5 g/dL (3.5-5.0); Alkaline Phosphatase 81 U/L (38-126); Calcium 9.1 mg/dL (8.4-10.2); Magnesium 1.7 mg/dL (1.6-2.3); Non-African American GFR(CKD) >90 (>60 ml/min/1.73 sqM); Total Bilirubin 0.6 mg/dL (0.2-1.3); Total Protein 7.8 g/dL (6.3-8.2)
[2021-07-12 18:30] LABS: Valproic Acid (Depakene) 66.4 ug/mL
--- NOTE | 2021-07-12 18:38 | CT ---
EXAMINATION TYPE: CT brain anselmoine wo con DATE OF EXAM: 07/12/2021 COMPARISON: 05/26/2018 HISTORY: fall following seizure CT DLP: combined DLP 1313.6 mGycm Automated exposure control for dose reduction was used. Images of the brain and cervical spine obtained without contrast. Ventricles have normal size. There is no mass effect or midline shift. There is no sign of intracrani al hemorrhage. Calvarium is intact. There is very little pneumatization of the mastoid sinuses. The cervical vertebra have normal alignment. There is degenerative spurring of the endplates at C5-6 and C6-7. Facet joints are intact. No compression fracture. IMPRESSION: Negative CT scan of the brain. No change. Mild spondylotic changes in the lower cervical spine. No fracture. No change.
--- NOTE | 2021-07-12 18:46 | CT ---
EXAMINATION TYPE: CT facial bones wo con DATE OF EXAM: 07/12/2021 COMPARISON: None HISTORY: fall following seizure CT DLP: combined DLP 1313.6 mGycm Automated exposure control for dose reduction was used. Images obtained from the bottom of the mandible to the top of the frontal sinuses with no contrast. The mandibular ring is intact. Temporomandibular joints are intact. Zygomatic arches appear normal. M axilla is intact. Nasal bone is intact. Orbital margins are intact. There is no evidence of orbital blowout fracture. There is no retro-orbit al mass. There is some mild soft tissue swelling around the lips. IMPRESSION: No fracture. Mild soft tissue swelling.
[2021-07-12] MEDS ORDERED: NALOXONE 0.4 MG/ML 1 ML VIAL IV PRN (19:55)
[2021-07-12] MEDS ORDERED: MORPHINE SULFATE 4 MG/ML SYRINGE IVP PRN (23:11)
[2021-07-12] MEDS: CLOPIDOGREL 75 MG TAB PO SCH (23:32)
[2021-07-12] MEDS: DIVALPROEX ER 500 MG TAB.ER.24H PO SCH (23:32)
[2021-07-12] MEDS: levETIRAcetam 500 MG TAB PO SCH (23:32)
[2021-07-12] MEDS: carBAMazepine 200 MG TAB PO SCH (23:32)
--- NOTE | 2021-07-12 23:38 | P.HPIM ---
History of Present Illness H&P Date: 07/12/21 The patient is a 56-year-old male with a PMH of uncontrolled epilepsy, hypertension, hyperlipidemia, who was brought into the emergency room after a syncopal episode. The patient reports that the last thing he remembers [place] and then waking up to the EMS staff sherman rrounding him. As per the EMS report, the patient was believed to have fallen forward, striking his face on concrete. The patient reports that he was diagnosed with epilepsy at 11 years of age and has seizures at least once a month, grand mal, despite compliance with his antiepileptics. He reports facial pain due to the trauma from fall and feeling somewhat lethargic. Denied chest discomfort, shortness of breath, fever, chills, focal weakness, numbness, tingling, or headaches. Head/cervical spine/facial CT were unremarkable except for mild soft tissue swelling around the lips. EKG revealed sinus rhythm at 96 bpm with Q waves in leads II, III, and aVF. Laboratory evaluation was remarka ble for sodium 129, chloride 94, glucose 198, and valproic acid levels therapeutic. Review of systems: Pertinent positives and negatives as discussed in HPI, a complete review of systems was performed and all other systems are negative. Physical examination: General: non toxic, no distress, appears at stated age, obese Derm: No lip swelling with abrasion to lip and chin, no unusual ecchymoses, w arm, dry Head: atraumatic, normocephalic, symmetric Eyes: EOMI, no lid lag, anicteric sclera, pupils equal round reactive to light ENT: Nose and ears atraumatic, no thrush, no pharyngeal erythema Neck: No thyromegaly, no cervical lymphadenopathy, trachea midline, supple Mouth: no lip lesion, mucus membranes moist Cardiovascular: S1S2 reg, no murmur, positive posterior tibial pulse bilateral, no edema, capillary refill less than 2 seconds Lungs: CTA bilateral, no rhonchi, no rales , no accessory muscle use Abdominal: soft, nontender to palpation, no guarding, no appreciable organomegaly, normal bowel sounds Ext: no gross muscle atrophy, muscle strength 5 out of 5 in all 4 extremities grossly, no contractures, Neuro: CN II-XI grossly intact, light touch intact all 4 extremities, finger to nose within normal limits, Psych: Alert, oriented, appropriate affect Assessment/plan Breakthrough seizure -Continue with home antiepileptics -Neurochecks due to concerns for concussive-like symptoms -Neurology consult -Fall precautions Hyperglycemia -Check A1c -Blood glucose monitoring Hyponatremia -Suspected secondary to seizure -Monitor for now DVT prophylaxis -Heparin subq The patient is admitted with an anticipated less than 2 midnight stay for evaluation of seizure CODE STATUS: Full Code Discussed with: Patient Anticipated discharge date: in am Anticipated discharge place: Home Past Medical History Past Medical History: CVA/TIA, Diabetes Mellitus, Hyperlipidemia, Hypertension, Memory Impairment, Myocardial Infarction ([place]), Seizure Disorder, Sleep Apnea/CPAP/BIPAP Additional Past Medical History / Comment(s): CVA & TIA-some slight residual left sided weakness, "borderline diabetes", no CPAP, has vagus nerve stimulator Last Myocardial Infarction Date:: 2015 History of Any Multi-Drug Resistant Organisms: None Reported Past Surgical History: Adenoidectomy, Tonsillectomy Additional Past Surgical History / Comment(s): TUBES IN EARS, VAGUS NERVE STIMULATOR IMPLANT Past Anesthesia/Blood Transfusion Reactions: Previous Problems w/ Anesthesia Additional Past Anesthesia/Blood Transfusion Reaction / Comment(s): STATES A LONG TIME TO WAKE UP AFTER ANESTHESIA. Past Psychological History: No Psychological Hx Reported Additional Psychological History / Comment(s): . Smoking Status: Never smoker Past Alcohol Use History: None Reported Past Drug Use History: None Reported - Past Family History Father Family Medical History: No Reported History Mother Family Medical History: No Reported History Brother(s) Family Medical History: Cancer Additional Family Medical History / Comment(s): PROSTATE CANCER WITH METS. Medications and Allergies Home Medications Medication Instructions Recorded Confirmed Type Clopidogrel [Plavix] 75 mg PO HS@199903/16/17 07/12/21 History levETIRAcetam [Keppra] 1,000 mg PO BID@08,199906/22/17 07/12/21 History Divalproex ER [Depakote ER] 1,000 mg PO BID@08,199905/26/18 07/12/21 History Multivitamins, Thera [Multivitamin 1 tab PO DAILY@1400 05/26/18 07/12/21 History (formulary)] Niacin (Inositol Niacinate) 500 mg PO DAILY@1400 05/26/18 07/12/21 History [Niacin 500 mg Capsule] Atorvastatin Calcium [Lipitor] 80 mg PO HS@199910/30/19 07/12/21 History Folic Acid 0.8 mg PO DAILY@1400 10/30/19 07/12/21 History amLODIPine [Norvasc] 2.5 mg PO HS@199910/30/19 07/12/21 History lamoTRIgine [LaMICtal] 50 mg PO BID@0800,199910/30/19 07/12/21 History rOPINIRole HCL [Requip] 0.5 mg PO BID@08,199910/30/19 07/12/21 History Cholecalciferol [Vitamin D3 (125 125 mcg PO DAILY@139907/12/21 07/12/21 History Mcg = 5000 Iu)] Ezetimibe [Zetia] 10 mg PO DAILY@79907/12/21 07/12/21 History Midazolam [Nayzilam] 1 spray NASAL DIRECTED PRN 07/12/21 07/12/21 History Thiamine [Vitamin B-1] 100 mg PO DAILY@139907/12/21 07/12/21 History carBAMazepine 100 mg PO DAILY@79907/12/21 07/12/21 History carBAMazepine 200 mg PO BID@1400,199907/12/21 07/12/21 History Allergies Allergy/AdvReac Type Severity Reaction Status Date / Time No Known Allergies Allergy Verified 07/12/21 20:19 Physical Exam Vitals: Vital Signs Temp Pulse Resp BP Pulse Ox 07/12/21 20:18 93 18 132/91 95 07/12/21 18:45 89 18 143/93 96 07/12/21 17:08 97.0 F L 115 H 20 153/101 98 Intake and Output 07/12/21 07/12/21 07/12/21 06:59 14:59 22:59 Other: Weight 111.13 kg Results CBC & Chem 7: 07/12/21 17:40 07/12/21 17:40 Labs: Abnormal Lab Results - Last 24 Hours (Table) 07/12/21 Range/Units 17:40 Sodium 129 L (137-145) mmol/L Chloride 94 L (98-107) mmol/L BUN 8 L (9-20) mg/dL Glucose 198 H (74-99) mg/dL Thrombosis Risk Factor Assmnt - Choose All That Apply Any of the Below Risk Factors Present?: Yes Each Factor Represents 1 point: Age 41-60 years, Obesity (BMI >25) Other Risk Factors: No Other congenital or acquired thrombophilia - If yes, enter type in comment: No Thrombosis Risk Factor Assessment Total Risk Factor Score: 2 Thrombosis Risk Factor Assessment Level: Low Risk
[2021-07-13] MEDS: HEPARIN SODIUM,PORCINE/PF 5,000 UNIT/0.5 ML SYRINGE SQ SCH ×4 (00:12→23:39)
[2021-07-13 07:09] LABS: Glucose,Whole Blood 90 mg/dL (75-99)
[2021-07-13] MEDS: lamoTRIgine 25 MG TAB PO SCH ×2 (08:52→20:26)
[2021-07-13] MEDS: SODIUM CHLORIDE 0.9% 1,000 ML IV SCH ×2 (08:52→23:38)
[2021-07-13] MEDS: levETIRAcetam 500 MG TAB PO SCH ×2 (08:53→20:26)
[2021-07-13] MEDS: carBAMazepine 200 MG TAB PO SCH ×3 (08:53→20:27)
[2021-07-13] MEDS: DIVALPROEX ER 500 MG TAB.ER.24H PO SCH ×2 (08:54→20:27)
--- NOTE | 2021-07-13 08:59 | P.PN ---
Subjective Progress Note Date: 07/13/21 Principal diagnosis: Seizure The patient is a 56-year-old male with a PMH of uncontrolled epilepsy, hypertension, hyperlipidemia, who was brought into the emergency room after a s yncopal episode. Patient reports history of epilepsy and reports that he has seizures at least once every 2 weeks. He reports compliance with his antiepileptic medication. He was seen and examined this morning. He reports feeling lethargic, lightheaded and "out of it". He sees a neurologist to [facility]. He denies any chest pain, shortness breath or palpitations. No nausea or vomiting. No fever or chills. Objective - Vital Signs Vital signs: Vital Signs Temp 98.9 F 07/13/21 07:00 Pulse 69 07/13/21 07:00 Resp 16 07/13/21 07:00 BP 131/85 07/13/21 07:00 Pulse Ox 96 07/13/21 07:00 Intake & Output 07/12/21 07/13/21 07/13/21 18:59 06:59 18:59 Weight 111.13 kg 111.13 kg Other: Voiding Method Toilet # Voids 1 - Exam General: [non toxic], [no distress], [appears at stated age] Derm: [warm], [dry], [lip swelling with abrasion to the lip and chin] Head: [atraumatic], [normocephalic], [symmetric] Eyes: [EOMI], [no lid lag], [anicteric sclera] Mouth: [no lip lesion], [mucus membranes moist] Cardiovascular: [S1S2 reg], [no murmur] Lungs: [CTA bilateral], [no rhonchi, no rales] , [no accessory muscle use] Ext: [no gross muscle atrophy], [no edema], [no contractures] Neuro: [ CN II-XI grossly intact], [no focal neuro deficits] Psych: [Alert], [oriented], [appears lethargic but answers questions appropriately] - Labs CBC & Chem 7: 07/12/21 17:40 07/12/21 17:40 Labs: Abnormal Lab Results - Last 24 Hours (Table) 07/12/21 Range/Units 17:40 Sodium 129 L (137-145) mmol/L Chloride 94 L (98-107) mmol/L BUN 8 L (9-20) mg/dL Glucose 198 H (74-99) mg/dL Assessment and Plan Assessment: Assessment/Plan Breakthrough seizure -Continue with home antiepileptics -Neurochecks due to concerns for concussive-like symptoms -Neurology consult -Seizure, aspiration and Fall precautions -Telemetry monitoring -PT and OT will be consulted to work with this patient Hyperglycemia -Check A1c -Blood glucose monitoring Hyponatremia -Suspected secondary to seizure -Start NS at 75 cc/hr -Monitor for now DVT prophylaxis -Heparin subq Chronic conditions: History of CVA/TIA, diabetes mellitus, hypertension, dyslipidemia, sleep apnea -Continue home medications. Patient continues to appear postictal. PT and OT consulted to work with this patient. Would benefit from hydration overnight. Discharge planning depending on neurology recommendation. The patient is admitted with an anticipated less than 2 midnight stay for evaluation of seizure CODE STATUS: Full Code Discussed with: Patient Anticipated discharge date: In 1-[address]: Home
[2021-07-13] MEDS ORDERED: KETOROLAC 15 MG/ML 1 ML VIAL IVP PRN (09:02)
[2021-07-13] MEDS ORDERED: ACETAMINOPHEN TAB 325 MG TAB PO PRN (09:02)
[2021-07-13 11:47] LABS: African American GFR (CKD) 100.9 (60.0-200.0); Anion Gap 10.6 mmol/L (10.00-18.00); BUN/Creat Ratio 8.72 Ratio (12.00-20.00); Blood Urea Nitrogen 8.5 mg/dL (9.0-27.0); Carbon Dioxide 25.9 mmol/L (20.0-27.5); Non-African American GFR(CKD) 87.1 (60.0-200.0); Potassium 4.5 mmol/L (3.5-5.5)
[2021-07-13 12:15] LABS: Glucose,Whole Blood 107 mg/dL (75-99)
[2021-07-13] MEDS ORDERED: FOLIC ACID 1 MG TAB PO SCH (14:00)
[2021-07-13] MEDS ORDERED: THIAMINE 100 MG TAB PO SCH (14:00)
[2021-07-13 16:29] LABS: Glucose,Whole Blood 114 mg/dL (75-99)
--- NOTE | 2021-07-13 18:36 | P.CNNES ---
History of Present Illness Consult date: 07/13/21 Requesting physician: Sole Armendariz Reason for Consult: Recurrent seizures History of Present Illness: Patient is a 56-year-old male with history of medically intractable epilepsy came to the hospital by ambulance yesterday at 5:06 PM. As per EMS flow sheet, when they arrived, patient was laying supine on the ground. Bystanders mentioned that they found patient laying on the grass next to a bus stop. Patient was alert and oriented 4 at that time. Patient has swelling and bleeding from upper lip. No laceration noted. Bleeding is minimal. No missing teeth. Patient believes that he had a seizure. Patient has history of epilepsy. Patient denies headache, neck or back pain. Patient denies dizziness or blurred vision. Patient was able to answer all questions and examination was nonfocal. Patient's vital shows that pressure 159/113, pulse rate 108, respiration 20 saturation 97%. Blood glucose was 158. Patient's blood test shows normal CBC, sodium 129, potassium 4.2, normal renal functions. Hemoglobin A1c 6.1, hepatic panel normal. Depakote 66.4. Tegretol level 8.3. Patient had a computed tomography scan of head, which was read as normal. I personally reviewed computed tomography scan of the head, and shows no acute process. No bleed. CT of the cervical spine showed mild spondylotic changes in the lower cervical spine. No fracture. Facial CT was negative for fracture. Mild soft tissue swelling. EKG with normal sinus rhythm. Possible inferior NC infarction. Patient has been seen by myself on 10/31/2019 when he had presented with similar scenario. Patient was found home unresponsive and he had felt that he like had a seizure. Patient has mentioned that he has history of seizures since he was age 12. Patient was on Depakote 750 mg every 12 hours (now 1000 mg twice a day), Lamictal 150 mg twice a day (now 50 mg twice a day), Keppra 1000 mg twice a day and Carbatrol 300 mg twice a day (not 200 mg twice a day and 100 mg at 8 AM). Patient follows up with Dr. Grigsby. Patient has mentioned that his seizures localizes to the right side. Patient gets petit mal seizures. He says that his "stomach gets going", then gets weak feeling. His seizure lasts for a couple minutes. He denies any tongue bite or loss of control of urine. He gets seizures every month or every 1-2 months. Patient states that he is getting seizures about once or twice a month. He fo llows up with Dr. Grigsby. Patient was referred to Dr. Montes in [place] and patient will be undergoing magnetoencephalography on 07/22/2021. Patient has a VNS, but feels it does not help. Review of Systems Patient complains of some dizziness, some tiredness. No double vision. All other 14 point of review systems reviewed are unremarkable. Past Medical History Past Medical History: CVA/TIA, Diabetes Mellitus, Hyperlipidemia, Hypertension, Memory Impairment, Myocardial Infarction ([place]), Seizure Disorder, Sleep Apnea /CPAP/BIPAP Additional Past Medical History / Comment(s): CVA & TIA-some slight residual left sided weakness, "borderline diabetes", no CPAP, has vagus nerve stimulator Last Myocardial Infarction Date:: 2015 History of Any Multi-Drug Resistant Organisms: None Reported Past Surgical History: Adenoidectomy, Tonsillectomy Additional Past Surgical History / Comment(s): TUBES IN EARS, VAGUS NERVE STIMULATOR IMPLANT Past Anesthesia/Blood Transfusion Reactions: Previous Problems w/ Anesthesia Additional Past Anesthesia/Blood Transfusion Reaction / Comment(s): STATES A LONG TIME TO WAKE UP AFTER ANESTHESIA. Past Psychological History: No Psychological Hx Reported Additional Psychological History / Comment(s): . Smoking Status: Never smoker Past Alcohol Use History: None Reported Past Drug Use History: None Reported - Past Family History Father Family Medical History: No Reported History Mother Family Medical History: No Reported History Brother(s) Family Medical History: Cancer Additional Family Medical History / Comment(s): PROSTATE CANCER WITH METS. Medications and Allergies Home Medications Medication Instructions Recorded Confirmed Type Clopidogrel [Plavix] 75 mg PO HS@199903/16/17 07/12/21 History levETIRAcetam [Keppra] 1,000 mg PO BID@0806/22/17 07/12/21 History Divalproex ER [Depakote ER] 1,000 mg PO BID@0800,199905/26/18 07/12/21 History Multivitamins, Thera [Multivitamin 1 tab PO DAILY@1400 05/26/18 07/12/21 History (formulary)] Niacin (Inositol Niacinate) 500 mg PO DAILY@1400 05/26/18 07/12/21 History [Niacin 500 mg Capsule] Atorvastatin Calcium [Lipitor] 80 mg PO HS@199910/30/19 07/12/21 History Folic Acid 0.8 mg PO DAILY@139910/30/19 07/12/21 History amLODIPine [Norvasc] 2.5 mg PO HS@199910/30/19 07/12/21 History lamoTRIgine [LaMICtal] 50 mg PO BID@08,199910/30/19 07/12/21 History rOPINIRole HCL [Requip] 0.5 mg PO BID@08,199910/30/19 07/12/21 History Cholecalciferol [Vitamin D3 (125 125 mcg PO DAILY@139907/12/21 07/12/21 History Mcg = 5000 Iu)] Ezetimibe [Zetia] 10 mg PO DAILY@0807/12/21 07/12/21 History Midazolam [Nayzilam] 1 spray NASAL DIRECTED PRN 07/12/21 07/12/21 History Thiamine [Vitamin B-1] 100 mg PO DAILY@139907/12/21 07/12/21 History carBAMazepine 100 mg PO DAILY@79907/12/21 07/12/21 History carBAMazepine 200 mg PO BID@1399,199907/12/21 07/12/21 History Allergies Allergy/AdvReac Type Severity Reaction Status Date / Time No Known Allergies Allergy Verified 07/12/21 20:19 Physical Examination - Vital Signs Vital Signs: Vital Signs Temp Pulse Pulse Resp BP BP BP 07/13/21 13:51 98 F 69 18 116/79 07/13/21 07:00 98.9 F 69 16 131/85 07/13/21 02:55 98.4 F 90 18 123/81 07/13/21 02:00 17 07/12/21 22:25 98.4 F 80 17 136/87 07/12/21 20:18 93 18 132/91 07/12/21 18:45 89 18 143/93 07/12/21 17:08 97.0 F L 115 H 20 153/101 Pulse Ox 07/13/21 13:51 94 L 07/13/21 07:00 96 07/13/21 02:55 95 07/13/21 02:00 04/09/22 22:25 96 07/12/21 20:18 95 07/12/21 18:45 96 07/12/21 17:08 98 Intake and Output 07/13/21 07/13/21 07/13/21 06:59 14:59 22:59 Intake Total 358 Output Total 375 Balance -17 Intake: Oral 358 Output: Urine 375 Other: Voiding Method Toilet # Voids 1 Patient is a middle aged [place]ro[place] male, in no acute distress. Patient has slightly slow mentation, but is alert awake oriented to time place and person. He knows it is July 2021 and that he is in [facility]. Speech and language functions are normal. Attention, concentration and fund of knowledge is adequate. On cranial examination, pupils are round and reacting to light, visual kaur are full on confrontation, extraocular muscles are intact with no nystagmus. Face is symmetric, tongue protrudes to the midline. Palatal elevation and sensation normal, hearing and shoulder shrug normal, facial sensation normal. Shoulder shrug normal. Patient's upper lip is swollen from the fall. On muscle strength testing, there is no pronator drift and the strength is normal in arms and legs distally and proximally. Deep tendon reflexes are 1+ and plantars downgoing. Sensory to touch is equal with no neglect. Cerebellar function showed tremulousness for [id number] testing, but no ataxia. Tone and bulk of muscles normal. Gait deferred. On general examination, there is no carotid bruit or murmur, S1-S2 audible. Abdomen is soft nontender. No organomegaly. Bowel sounds present. Chest is clear. Results - Laboratory Findings CBC and BMP: 07/12/21 17:40 07/13/21 06:43 Abnormal Lab Findings: Abnormal Labs 07/12/21 07/13/21 07/13/21 17:40 06:43 06:43 Sodium 129 L 131 L Chloride 94 L 95 L BUN 8 L 8.5 L BUN/Creatinine Ratio 8.72 L Glucose 198 H POC Glucose (mg/dL) Hemoglobin A1c 6.1 H 07/13/21 12:13 Sodium Chloride BUN BUN/Creatinine Ratio Glucose POC Glucose (mg/dL) 107 H Hemoglobin A1c Assessment and Plan Assessment: * Medically intractable epilepsy, came with breakthrough seizure. Patient's seizures are not well controlled, occurring about once or twice a month. * Vagal nerve stimulator * Pre-Diabetes * Hypertension * Sleep apnea * Obesity Plan: * I spoke to the patient and his in detail. Patient's seizures are not well controlled. I would avoid increasing dose of Depakote because of potential side effects and the levels are therapeutic. Patient previously tried higher dose of Lamictal, but the seizures got worse. We will Increase Keppra to 1250 mg twice a day (from 1000 mg twice a day). * Continue Carbatrol 100 mg a.m., 200 mg p.m. and 200 mg at bedtime; Depakote 1000 mg twice a day; Lamictal 50 mg twice a day. * Patient is undergoing magnetoencephalography on 07/22/[address] Montes in [place]. Patient was recommended to follow up with his local neurologist Dr. Grigsby in 1-2 weeks. * Neurologically clear, when medically stable. Dr. Brian Esparza will be available from morning, for any concerns. Thank you for the consult.
[2021-07-13] MEDS: CLOPIDOGREL 75 MG TAB PO SCH (20:27)
[2021-07-13] MEDS: levETIRAcetam 250 MG TAB PO SCH (20:27)
[2021-07-13] MEDS ORDERED: ATORVASTATIN 80 MG TAB PO SCH (21:00)
[2021-07-13] MEDS ORDERED: amLODIPine 2.5 MG TAB PO SCH (21:00)
[2021-07-13 21:20] LABS: Glucose,Whole Blood 120 mg/dL (75-99)
[2021-07-14 07:47] LABS: Glucose,Whole Blood 99 mg/dL (75-99)
[2021-07-14 08:23] VITALS: BP 141/94; PULSE 87; RESP 16; TEMP 97.5
[2021-07-14] MEDS: HEPARIN SODIUM,PORCINE/PF 5,000 UNIT/0.5 ML SYRINGE SQ SCH (08:29)
[2021-07-14] MEDS: carBAMazepine 200 MG TAB PO SCH (08:30)
[2021-07-14] MEDS: DIVALPROEX ER 500 MG TAB.ER.24H PO SCH (08:30)
[2021-07-14] MEDS: lamoTRIgine 25 MG TAB PO SCH (08:30)
[2021-07-14] MEDS: levETIRAcetam 250 MG TAB PO SCH (08:30)
[2021-07-14] MEDS: levETIRAcetam 500 MG TAB PO SCH (08:31)
[2021-07-14] MEDS: SODIUM CHLORIDE 0.9% 1,000 ML IV SCH (08:32)
--- NOTE | 2021-07-14 11:29 | P.DS ---
Providers Date of admission: 07/12/21 19:55 Expected date of discharge: 07/14/21 Attending physician: Corky Vee MD Consults: 07/12/21 19:55 Consult Physician Routine Consulting Provider: Valdez Denson Consult Reason/Comments: recurrent seizures Do you want consulting provider notified?: Yes, Notify in am Primary care physician: Aman Malin [facility] Course: Discharge Diagnosis: Breakthrough seizure, Keppra was increased to 1250 mg twice daily and patient to continue medication regimen with Depakote, Lamictal, and carbamazepine. hyperglycemia, A1c 6.1%. Hyponatremia, improved History of CVA/TIA, diabetes mellitus, hypertension, dyslipidemia, and sleep apnea. Hospital Course: Patient is a very pleasant 56-year-old male with a past medical history of uncontrolled epilepsy, hypertension, and hyperlipidemia. He presented to the hospital 07/12/21 with a chief complaint of breakthrough seizure. Patient was seen and fully evaluated. He underwent a CT head, face, and cervical spine all negative for acute process. EKG was completed revealing sinus rhythm and 96 bpm with no noted T wave or ST abnormality showing no signs of acute ischemia.labs completed. CBC unremarkable. CMP revealing hyponatremia with sodium of 129 and hypochloremia with chloride of 94. Patient was admitted under our services with consultation to neurology for breakthrough seizures. Valproic acid, Carbamazepine and lamotrigine levels were drawn and all in therapeutic range. patient was seen and fully evaluated by neurology and adjustments were made to patient's daily medication regimen.. Keppra was increased to 1250 mg twice daily and patient to continue medication regimen with Depakote, Lamictal, and carbamazepine. Neurology clearing patient for discharge recommending patient to undergo scheduled magnetoencephalography as previously scheduled on 07/22/[address] Simon Burleson and to follow with his local neurologist Dr. Grigsby in 1-2 weeks.sodium increasing to 131, hyponatremia is chronic in nature likely secondary to seizure medications. Patient is medically stable at this time. Patient educated on discharge instructions and all questions answered. Patient medically stable for discharge at this time and follow-up with PCP, neurologist, and scheduled testing as discussed above. Patient seen and examined at bedside. Vital signs reviewed and stable. General: Nontoxic, no distress and appears stated age. Derm: Skin warm and dry, normal coloration for ethnicity. Head: Atraumatic, normocephalic and symmetric. Eyes: EOMs intact, no lid lag, and anicteric sclera Mouth: no lip lesions, mucus membranes moist. left upper lip swelling with abrasion to left upper lip and chin. Cardiovascular: regular rate and rhythm with normal S1S2, no murmur, positive posterior tibial pulses bilaterally, and cap refill < 2 seconds. Lungs: Respirations even, regular, and unlabored on room air. Lungs CTA bilaterally, no rhonchi, no rales, no wheezing, and no accessory muscle usage. Abdominal: soft, nontender to palpation, no guarding, no appreciable organomegaly Ext: ROM intact. No gross muscle atrophy, no edema, no contractures Neuro: Speech clear, face symmetrical and CN II-XII grossly intact with no noted focal neuro deficits Psych: Alert and oriented to person, place, time, and situation. Appropriate and pleasant affect. A total of 40 minutes of time were spent preparing this complex discharge summary. Patient Condition at Discharge: Stable Plan - Discharge Summary Discharge Rx Participant: No New Discharge Prescriptions: New levETIRAcetam [Keppra] 250 mg PO Q12HR 30 Days #60 tab Continue Clopidogrel [Plavix] 75 mg PO HS@1999 levETIRAcetam [Keppra] 1,000 mg PO BID@0800,1999 Divalproex ER [Depakote ER] 1,000 mg PO BID@0800,1999 Niacin (Inositol Niacinate) [Niacin 500 mg Capsule] 500 mg PO DAILY@1400 Multivitamins, Thera [Multivitamin (formulary)] 1 tab PO DAILY@1400 rOPINIRole HCL [Requip] 0.5 mg PO BID@0800,1999 lamoTRIgine [LaMICtal] 50 mg PO BID@0800,1999 amLODIPine [Norvasc] 2.5 mg PO HS@1999 Atorvastatin Calcium [Lipitor] 80 mg PO HS@1999 Folic Acid 0.8 mg PO DAILY@1400 Thiamine [Vitamin B-1] 100 mg PO DAILY@1400 Cholecalciferol [Vitamin D3 (125 Mcg = 5000 Iu)] 125 mcg PO DAILY@1400 Midazolam [Nayzilam] 1 spray NASAL DIRECTED PRN PRN Reason: seizure clusters Ezetimibe [Zetia] 10 mg PO DAILY@0800 carBAMazepine 200 mg PO BID@1400,1999 carBAMazepine 100 mg PO DAILY@08 Discharge Medication List Clopidogrel [Plavix] 75 mg PO HS@199903/16/17 [History] levETIRAcetam [Keppra] 1,000 mg PO BID@799,199906/22/17 [History] Divalproex ER [Depakote ER] 1,000 mg PO BID@799,199905/26/18 [History] Multivitamins, Thera [Multivitamin (formulary)] 1 tab PO DAILY@139905/26/18 [History] Niacin (Inositol Niacinate) [Niacin 500 mg Capsule] 500 mg PO DAILY@139905/26/18 [History] Atorvastatin Calcium [Lipitor] 80 mg PO HS@199910/30/19 [History] Folic Acid 0.8 mg PO DAILY@139910/30/19 [History] amLODIPine [Norvasc] 2.5 mg PO HS@199910/30/19 [History] lamoTRIgine [LaMICtal] 50 mg PO BID@799,199910/30/19 [History] rOPINIRole HCL [Requip] 0.5 mg PO BID@799,199910/30/19 [History] Cholecalciferol [Vitamin D3 (125 Mcg = 5000 Iu)] 125 mcg PO DAILY@139907/12/21 [History] Ezetimibe [Zetia] 10 mg PO DAILY@79907/12/21 [History] Midazolam [Nayzilam] 1 spray NASAL DIRECTED PRN 07/12/21 [History] Thiamine [Vitamin B-1] 100 mg PO DAILY@139907/12/21 [History] carBAMazepine 100 mg PO DAILY@79907/12/21 [History] carBAMazepine 200 mg PO BID@1399,199907/12/21 [History] levETIRAcetam [Keppra] 250 mg PO Q12HR 30 Days #60 tab 07/14/21 [Rx] Follow up Appointment(s)/Referral(s): Aman Smyth MD [Primary Care Provider] - 1-2 days Patient Instructions/Handouts: Seizure/Epilepsy Discharge Instructions & Follow-Up Activity/Diet/Wound Care/Special Instructions: Activity: As tolerated. Take breaks as needed. Diet: Heart healthy and carb consistent diet. Avoid salts, or foods with hidden salts such as canned or boxed foods and frozen dinners. Extra salt makes your heart work harder and traps the fluid in your body for longer. Special Instructions: Take all of your medications as directed and remember to keep all of your doctor's appointments and follow-up as needed. [place] state law states no driving until seizure free for 6 months. Patient also instructed to avoid climbing ladders, operating dangerous or heavy machinery or unsupervised swimming until seizure free for 6 months. It is very important that you follow-up with Dr. Church (your neuroligist) in 1-2 weeks. Your medication, Keppra has been increased to 1250 mg daily. No other medication changes were made at this time. Thank you for allowing us to participate in your care, it was truly a pleasure having you for our patient!!! Discharge Disposition: HOME SELF-CARE
== END 2021-07-14 12:17 | disposition home or self-care (01) ==
LOC: EC 17:06 → 6NMEDSUR 19:55
PROVIDERS: ADMIT Internal Medicine; ATTEND Internal Medicine
DX: G40.A19 Absence epileptic syndrome, intractable, without status epilepticus (principal); E87.1 Hypo-osmolality and hyponatremia; E11.65 Type 2 diabetes mellitus with hyperglycemia; E87.8 Other disorders of electrolyte and fluid balance, not elsewhere classified; I10 Essential (primary) hypertension; E78.5 Hyperlipidemia, unspecified; G47.30 Sleep apnea, unspecified; I69.954 Hemiplegia and hemiparesis following unspecified cerebrovascular disease affecting left non-dominant side; S00.511A Abrasion of lip, initial encounter; S00.81XA Abrasion of other part of head, initial encounter; W19.XXXA Unspecified fall, initial encounter; Y92.521 Bus station as the place of occurrence of the external cause; E66.9 Obesity, unspecified; Z68.39 Body mass index [BMI] 39.0-39.9, adult; I25.2 Old myocardial infarction; Z79.02 Long term (current) use of antithrombotics/antiplatelets; Z79.899 Other long term (current) drug therapy; Z96.82 Presence of neurostimulator; Z98.890 Other specified postprocedural states; Z80.42 Family history of malignant neoplasm of prostate
CPT/HCPCS: 96361 ×4; 96372 ×2; 96374; 99285; 36415; 93005; 97162; 80156; 80164; 80053; 80048; 80175; 80177; 83735; 85025; 83036; 72125; 70486; 70450; G0378 ×3; J2270; J1644 ×2

== ENCOUNTER → 2021-07-17 | Outpatient (CLI) | payer OTHER, MEDICARE ==
[2021-07-17 14:27] LABS: Basophils # (A) 0.03 X 10*3/uL (0.00-0.10); Basophils % (A) 0.4 %; Eosinophils # (A) 0.04 X 10*3/uL (0.04-0.35); Eosinophils % (A) 0.5 %; HCT 44.4 % (39.6-50.0); HGB 14.5 g/dL (13.0-17.0); Immature Grans, Automated 0.6 %; Lymphocytes # (A) 2.49 X 10*3/uL (0.90-5.00); Lymphocytes % (A) 31.1 %; MCH 30.7 pg (27.0-32.0); MCHC 32.7 g/dL (32.0-37.0); MCV 94.1 fL (80.0-97.0); Mean Platelet Volume 10.2 fL (9.5-12.2); Monocytes # (A) 0.86 X 10*3/uL (0.20-1.00); Monocytes % (A) 10.7 %; NRBC Per 100 WBC 0 /100 WBCS (0.0-0.0); Neutrophils # (A) 4.54 X 10*3/uL (1.80-7.70); Neutrophils % (A) 56.7 %; Platelet Count 259 X 10*3/uL (140-440); RBC 4.72 X 10*6/uL (4.40-5.60); RDW 13.8 % (11.5-14.5); WBC 8.01 X 10*3/uL (4.50-10.00)
[2021-07-17 14:42] LABS: Chol/HDL Ratio 3.74 Ratio; LDL Cholesterol,Calculated 54.5 mg/dL (0.0-131.0)
[2021-07-17 15:08] LABS: ALT 27 U/L (10-49); AST 35 U/L (14-35); African American GFR (CKD) 96.6 (60.0-200.0); Albumin 4.5 g/dL (3.8-4.9); Albumin/Globulin Ratio 1.51 (1.60-3.17); Alkaline Phosphatase 81 U/L (41-126); Blood Urea Nitrogen 10.1 mg/dL (9.0-27.0); Calcium 9.3 mg/dL (8.7-10.3); Carbon Dioxide 24.5 mmol/L (20.0-27.5); Chloride 91 mmol/L (96-109); Glucose 93 mg/dL (70-110); Non-African American GFR(CKD) 83.4 (60.0-200.0); Potassium 4.4 mmol/L (3.5-5.5); Sodium 131 mmol/L (135-145); Total Protein 7.5 g/dL (6.2-8.2)
== END | disposition home or self-care (01) ==
LOC: LABWHC1 07:53
PROVIDERS: ATTEND Family Medicine
DX: Z00.00 Encounter for general adult medical examination without abnormal findings (principal); Z12.5 Encounter for screening for malignant neoplasm of prostate
CPT/HCPCS: 36415; 80053; 80061; 83036; 84153; 84443; 85025

== ENCOUNTER → 2021-08-04 | Outpatient (CLI) | payer OTHER, MEDICARE ==
[2021-08-04 14:24] LABS: HGB 14.8 g/dL (13.0-17.0); MCH 30.6 pg (27.0-32.0); MCHC 32.9 g/dL (32.0-37.0); Mean Platelet Volume 10.2 fL (9.5-12.2); NRBC Per 100 WBC 0 /100 WBCS (0.0-0.0); Platelet Count 299 X 10*3/uL (140-440); RBC 4.84 X 10*6/uL (4.40-5.60); RDW 13.3 % (11.5-14.5)
[2021-08-04 16:11] LABS: Albumin 4.5 g/dL (3.8-4.9); Albumin/Globulin Ratio 1.55 (1.60-3.17); Anion Gap 11.4 mmol/L (10.00-18.00); BUN/Creat Ratio 6.33 Ratio (12.00-20.00); Blood Urea Nitrogen 5.7 mg/dL (9.0-27.0); Calcium 9.4 mg/dL (8.7-10.3); Carbon Dioxide 27.6 mmol/L (20.0-27.5); Globulin 2.9 g/dL (1.6-3.3); Non-African American GFR(CKD) 95.8 (60.0-200.0); Potassium 5.1 mmol/L (3.5-5.5); Total Bilirubin 0.2 mg/dL (0.30-1.20); Total Protein 7.4 g/dL (6.2-8.2)
== END | disposition home or self-care (01) ==
LOC: LABWHC1 08:10
PROVIDERS: ATTEND Family Medicine
DX: E87.1 Hypo-osmolality and hyponatremia (principal)
CPT/HCPCS: 36415; 80053; 85027

== ENCOUNTER → 2021-09-24 | Day surgery (SDC) | payer OTHER, MEDICARE ==
[2021-09-23 09:17] VITALS: BMI 36.1
[~2021-09-24] MED LIST changes: +ALPRAZolam 0.25 MG TAB PO PRN; +ALPRAZolam 0.5 MG TAB PO PRN; +ASPIRIN 325 MG TAB PO STA; +ATORVASTATIN 80 MG TAB PO STA; +HEPARIN SODIUM,PORCINE 10,000 UNIT in SODIUM CHLORIDE 0.9% 1,000 ML IRRIGATION PRN; +HEPARIN SODIUM,PORCINE 2,500 UNIT in SODIUM CHLORIDE 0.9% 250 ML IRRIGATION PRN; +NITROGLYCERIN SL TABS 0.4 MG TAB SUBLINGUAL PRN; -SODIUM CHLORIDE 0.9% 1,000 ML IV SCH; +SODIUM CHLORIDE 0.9% 1,000 ML in EMPTY BAG 1 BAG IV SCH
[2021-09-24 07:58] VITALS: BP 160/85; PULSE 81; RESP 18; TEMP 98.1
[2021-09-24 08:17] LABS: Basophils % (A) 0 %; Eosinophils # (A) 0.1 k/uL (0-0.7); Eosinophils % (A) 1 %; HCT 43.4 % (39.0-53.0); Lymphocytes # (A) 2.5 k/uL (1.0-4.8); Lymphocytes % (A) 28 %; MCH 32.7 pg (25.0-35.0); MCHC 34.6 g/dL (31.0-37.0); MCV 94.3 fL (80.0-100.0); Mean Platelet Volume 7.3; Monocytes # (A) 0.8 k/uL (0-1.0); Monocytes % (A) 9 %; Neutrophils % (A) 57 %; Platelet Count 308 k/uL (150-450); RDW 14.3 % (11.5-15.5); WBC 8.7 k/uL (3.8-10.6)
[2021-09-24 08:28] LABS: African American GFR (CKD) >90 (>60 ml/min/1.73 sqM); Anion Gap 11 mmol/L; Blood Urea Nitrogen 11 mg/dL (9-20); Calcium 9.2 mg/dL (8.4-10.2); Carbon Dioxide 24 mmol/L (22-30); Chloride 94 mmol/L (98-107); Glucose 94 mg/dL (74-99); Non-African American GFR(CKD) >90 (>60 ml/min/1.73 sqM); Sodium 129 mmol/L (137-145)
[2021-09-24 08:35] LABS: Potassium 5.3 mmol/L (3.5-5.1)
== END ==
LOC: CATHCVL 07:32
PROVIDERS: ATTEND Internal Medicine Interventional Cardiology
DX: Z01.810 Encounter for preprocedural cardiovascular examination (principal); Z53.8 Procedure and treatment not carried out for other reasons
CPT/HCPCS: 80048; 84132; 85025; 87635

== ENCOUNTER 2021-10-07 06:31 | Day surgery (SDC) | payer OTHER, MEDICARE ==
[2021-10-01 14:34] VITALS: BMI 36.1
[2021-10-07] MEDS ORDERED: ALPRAZolam 0.25 MG TAB PO PRN (06:32)
[2021-10-07] MEDS ORDERED: ATORVASTATIN 80 MG TAB PO STA (06:32)
[2021-10-07] MEDS ORDERED: ALPRAZolam 0.5 MG TAB PO PRN (06:32)
[2021-10-07] MEDS ORDERED: NITROGLYCERIN SL TABS 0.4 MG TAB SUBLINGUAL PRN (06:32)
[2021-10-07] MEDS ORDERED: ASPIRIN 325 MG TAB PO STA (06:32)
[2021-10-07] MEDS ORDERED: HEPARIN SODIUM,PORCINE 2,500 UNIT in SODIUM CHLORIDE 0.9% 250 ML IRRIGATION PRN (06:32)
[2021-10-07] MEDS ORDERED: HEPARIN SODIUM,PORCINE 10,000 UNIT in SODIUM CHLORIDE 0.9% 1,000 ML IRRIGATION PRN (06:32)
[2021-10-07] MEDS ORDERED: SODIUM CHLORIDE 0.9% 1,000 ML in EMPTY BAG 1 BAG IV SCH (06:32)
[2021-10-07 06:56] LABS: Glucose,Whole Blood 99 mg/dL (70-110)
[2021-10-07] MEDS ORDERED: VERAPAMIL 2.5 MG/ML 2 ML AMP ONE (07:28)
[2021-10-07 07:39] VITALS: RESP 16; TEMP 98.3
[2021-10-07] MEDS ORDERED: SODIUM CHLORIDE 0.9% 1,000 ML IV ONE (07:41)
[2021-10-07] MEDS ORDERED: fentaNYL (PF) 50 MCG/ML 2 ML AMP ONE (08:29)
[2021-10-07] MEDS ORDERED: MIDAZOLAM 2 MG/2 ML VIAL IV ONE (08:46)
[2021-10-07] MEDS ORDERED: fentaNYL (PF) 50 MCG/ML 2 ML AMP IV ONE (08:46)
[2021-10-07] MEDS ORDERED: LIDOCAINE 1% PF 10 MG/ML (5 ML AMP) SQ ONE (08:47)
[2021-10-07] MEDS ORDERED: VERAPAMIL SYRINGE (5 MG/10 ML) INTRAARTER ONE (08:49)
[2021-10-07] MEDS ORDERED: HEPARIN SODIUM 1,000 UN/ML (10ML VL) IV ONE (08:55)
[2021-10-07] MEDS ORDERED: IOPAMIDOL-370 125ML BTL INJ ONE (09:00)
[2021-10-07] MEDS ORDERED: RX INFO: IV CONTRAST WAS GIVEN 1 EACH MISC MISCELLANE PRN (09:02)
--- NOTE | 2021-10-07 09:08 | P.PCN ---
Date of Procedure: 10/07/21 Operative Findings: CARDIAC CATHETERIZATION PERFORMING PHYSICIAN: Ysosi Doyle MD, RPVI PROCEDURE PERFORMED: 1. Selective right and left coronary angiogram 2. Left heart catheterization INDICATION: This is a 56-year-old gentleman was hypertension and dyslipidemia and history of stroke was experiencing symptoms of shortness of breath. Also he is in process of having the brain surgery. Myocardial perfusion imaging stenosis was performed and came in to be abnormal showing inferobasal ischemia. COMPLICATION: None APPROACH: Right radial artery LEVEL OF SEDATION: Moderate with a sedation length of 11 minutes PROCEDURE DESCRIPTION: After obtaining an informed consent, the patient was brought to cardiac label sewer. Local anesthesia was performed using lidocaine subcutaneously. The right radial artery was cannulated using Seldinger technique, the guidewire passed easily, following that we advanced a 5-Nigerian sheath dilator assembly, the wire and dilator were removed and sheath was flushed. Following that, 2 mg of verapamil along with 3000 unit heparin were given. Selective right and left coronary angiogram using a 6-Nigerian JR4 and JL 3.5 catheters. Following that we did left heart catheterization using 6-Nigerian pigtail catheter. The procedure was completed there was no complication. SELECTIVE CORONARY ANGIOGRAM: The right coronary artery: Is a moderate caliber vessel and nondominant vessel. Its angiographically normal. Left main: Short left main. Bifurcates into LCx and LAD. The left main is angiographically normal The left circumflex: Is a large caliber vessel and a dominant vessel. The left circumflex is angiographically normal. Gives rises into the first and second obtuse marginal branches. First OM has mild disease only. Distally the circumflex bifurcates into PDA and PLV branches and both appeared to be angiographically normal The left anterior descending artery: As medium to large caliber vessel. Its angiographically normal. Gives rises into a diagonal branch in the midportion and appeared to be angiographically normal. HEMODYNAMICS: The LVEDP was 20 mmHg was no significant gradient across aortic valve CONCLUSION: 1. Normal coronary angiogram 2. Elevated left-sided filling pressure POSTPROCEDURE MANAGEMENT: Medical treatment and follow-up with the patient
[2021-10-07] MEDS ORDERED: SODIUM CHLORIDE 0.9% 1,000 ML IV SCH (09:15)
[2021-10-07 12:49] VITALS: PULSE 60
[2021-10-07 12:50] VITALS: BP 118/63
== END 2021-10-07 14:02 | disposition home or self-care (01) ==
LOC: CATHCVL 06:31
PROVIDERS: ATTEND Internal Medicine Interventional Cardiology
DX: R06.02 Shortness of breath (principal); R94.39 Abnormal result of other cardiovascular function study; I10 Essential (primary) hypertension; R78.5 Finding of other psychotropic drug in blood; Z86.73 Personal history of transient ischemic attack (TIA), and cerebral infarction without residual deficits; Z20.822 Contact with and (suspected) exposure to COVID-19; Z79.02 Long term (current) use of antithrombotics/antiplatelets; Z79.899 Other long term (current) drug therapy
CPT/HCPCS: 93458; 87635; C1769; C1894; J2250; J2001; J3010; J1644; Q9967

== ENCOUNTER 2021-11-04 16:09 | Inpatient (IN) | payer OTHER, MEDICARE ==
[2021-11-04] MEDS ORDERED: SODIUM CHLORIDE 0.9% 500 ML 500 ML IV ONE (16:37)
[2021-11-04] MEDS ORDERED: levETIRAcetam IV 1,000 MG in SALINE 1 100ML.BAG IVPB STA (16:41)
[2021-11-04 16:56] LABS: Basophils % (A) 1 %; Eosinophils # (A) 0.1 k/uL (0-0.7); Eosinophils % (A) 1 %; HCT 45.9 % (39.0-53.0); HGB 15.3 gm/dL (13.0-17.5); Lymphocytes # (A) 1.4 k/uL (1.0-4.8); Lymphocytes % (A) 18 %; MCH 31.4 pg (25.0-35.0); MCHC 33.3 g/dL (31.0-37.0); MCV 94.4 fL (80.0-100.0); Mean Platelet Volume 8.1; Monocytes # (A) 0.6 k/uL (0-1.0); Monocytes % (A) 8 %; Neutrophils # (A) 5.6 k/uL (1.3-7.7); Neutrophils % (A) 71 %; Platelet Count 289 k/uL (150-450); RBC 4.87 m/uL (4.30-5.90); RDW 13.7 % (11.5-15.5); WBC 7.9 k/uL (3.8-10.6)
[2021-11-04 17:12] LABS: ALT 26 U/L (4-49); African American GFR (CKD) >90 (>60 ml/min/1.73 sqM); Albumin 4.5 g/dL (3.5-5.0); Anion Gap 9 mmol/L; Blood Urea Nitrogen 14 mg/dL (9-20); Calcium 9.2 mg/dL (8.4-10.2); Carbon Dioxide 26 mmol/L (22-30); Chloride 100 mmol/L (98-107); Glucose 116 mg/dL (74-99); Non-African American GFR(CKD) 85 (>60 ml/min/1.73 sqM); Sodium 135 mmol/L (137-145); Total Bilirubin 0.3 mg/dL (0.2-1.3); Total Protein 7.6 g/dL (6.3-8.2)
[2021-11-04 17:17] LABS: AST 42 U/L (17-59); Alkaline Phosphatase 89 U/L (38-126); Potassium 5.5 mmol/L (3.5-5.1); Valproic Acid (Depakene) 58.2 ug/mL
--- NOTE | 2021-11-04 17:19 | ED ---
General Adult HPI - General Chief complaint: Seizure Stated complaint: Seizure Time Seen by Provider: 11/04/21 16:25 Source: patient, EMS, RN notes reviewed, old records reviewed Mode of arrival: EMS Limitations: no limitations - History of Present Illness Initial comments: This is a 56-year-old male who presents emergency department stating that he had 3 seizures today. Patient states he's had seizures for 40 years and he is on Depakote Lamictal and Keppra. Patient states he keeps up-to-date on all of those. Patient states he had a seizure so then he went to his doctor's office to have his Keppra level drawn and after that he came home he had 2 more seizures. Patient states otherwise he's been feeling at his baseline he denies any fever chills or cough per patient denies any chest pain difficulty breathing shortness of breath per patient denies any abdominal pain patient denies nausea vomiting diarrhea. - Related Data Home Medications Medication Instructions Recorded Confirmed Clopidogrel [Plavix] 75 mg PO DAILY 03/16/17 10/07/21 levETIRAcetam [Keppra] 1,000 mg PO Q12HR 06/22/17 10/07/21 Divalproex ER [Depakote ER] 1,000 mg PO BID@0800,199905/26/18 10/07/21 Multivitamins, Thera [Multivitamin 1 tab PO DAILY@139905/26/18 10/07/21 (formulary)] Niacin (Inositol Niacinate) 500 mg PO DAILY@139905/26/18 10/07/21 [Niacin 500 mg Capsule] Atorvastatin Calcium [Lipitor] 80 mg PO HS 10/30/19 10/07/21 Folic Acid 0.8 mg PO DAILY@139910/30/19 10/07/21 amLODIPine [Norvasc] 2.5 mg PO HS 10/30/19 10/07/21 lamoTRIgine [LaMICtal] 50 mg PO BID@0800,199910/30/19 10/07/21 Cholecalciferol [Vitamin D3 (125 125 mcg PO DAILY@1400 07/12/21 10/07/21 Mcg = 5000 Iu)] Ezetimibe [Zetia] 10 mg PO DAILY 07/12/21 10/07/21 Midazolam [Nayzilam] 1 spray NASAL DIRECTED PRN 07/12/21 10/01/21 Thiamine [Vitamin B-1] 100 mg PO DAILY@1400 07/12/21 10/07/21 carBAMazepine 100 mg PO DAILY@0800 07/12/21 10/07/21 carBAMazepine 200 mg PO BID@1400,2000 07/12/21 10/07/21 rOPINIRole HCL [Requip] 1 mg PO BID 09/23/21 10/07/21 Aspirin 81 mg PO DAILY PRN 09/24/21 10/07/21 Allergies Allergy/AdvReac Type Severity Reaction Status Date / Time No Known Allergies Allergy Verified 10/07/21 06:43 Review of Systems ROS Statement: Those systems with pertinent positive or pertinent negative responses have been documented in the HPI. ROS Other: All systems not noted in ROS Statement are negative. Past Medical History Past Medical History: CVA/TIA, Diabetes Mellitus, Hyperlipidemia, Hypertension, Memory Impairment, Myocardial Infarction ([place]), Seizure Disorder, Sleep Apnea/CPAP/BIPAP Additional Past Medical History / Comment(s): TIA-some slight residual left sided weakness-resolved, "borderline diabetes"-diet control, no CPAP, has vagus nerve stimulator, hx migraines, epilepsy last seizure 1 month ago, Last Myocardial Infarction Date:: 2015 History of Any Multi-Drug Resistant Organisms: None Reported Past Surgical History: Adenoidectomy, Ear Surgery, Heart Catheterization, Tonsillectomy Additional Past Surgical History / Comment(s): TUBES IN EARS, VAGUS NERVE STIMULATOR IMPLANT Past Anesthesia/Blood Transfusion Reactions: Previous Problems w/ Anesthesia Additional Past Anesthesia/Blood Transfusion Reaction / Comment(s): STATES A LONG TIME TO WAKE UP AFTER ANESTHESIA. Past Psychological History: No Psychological Hx Reported Smoking Status: Never smoker Past Alcohol Use History: None Reported Past Drug Use History: None Reported - Past Family History Brother(s) Family Medical History: Cancer Additional Family Medical History / Comment(s): PROSTATE CANCER WITH METS. General Exam - General Exam Comments Initial Comments: GENERAL: Patient is well-developed and well-nourished. Patient is nontoxic and well- hydrated and is in no acute distress. ENT: Neck is soft and supple. No significant lymphadenopathy is noted. Oropharynx is clear. Moist mucous membranes. Neck has full range of motion without eliciting any pain. EYES: The sclera were anicteric and conjunctiva were pink and moist. Extraocular movements were intact and pupils were equal round and reactive to light. Eyelids were unremarkable. PULMONARY: Unlabored respirations. Good breath sounds bilaterally. No audible rales rhonc hi or wheezing was noted. CARDIOVASCULAR: There is a regular rate and rhythm without any murmurs gallops or rubs. ABDOMEN: Soft and nontender with normal bowel sounds. SKIN: Skin is clear with no lesions or rashes and otherwise unremarkable. NEUROLOGIC: Patient is alert and oriented x3. Cranial nerves II through XII are grossly intact. Motor and sensory are also intact. Normal speech, volume and content. Symmetrical smile. MUSCULOSKELETAL: Normal extremities with adequate strength and full range of motion. LYMPHATICS: No significant lymphadenopathy is noted PSYCHIATRIC: Normal psychiatric evaluation. Limitations: no limitations Course Vital Signs 11/04/21 11/04/21 16:21 18:32 Temperature 98.9 F Pulse Rate 96 101 H Respiratory 16 16 Rate Blood Pressure 148/91 164/108 O2 Sat by Pulse 98 97 Oximetry Medical Decision Making - Medical Decision Making Patient had a seizure in the emergency department and in that was the fourth seizure today. Patient also had that seizure after patient received 1000 mg of Keppra in the emergency department. At this point time the patient and did not feel comfortable going home so I admitted the patient and I wrote admitting orders I consult the neurology - Lab Data Result diagrams: 11/04/21 16:47 11/04/21 16:47 Lab Results 11/04/21 11/04/21 Range/Units 16:47 16:47 WBC 7.9 (3.8-10.6) k/uL RBC 4.87 (4.30-5.90) m/uL Hgb 15.3 (13.0-17.5) gm/dL Hct 45.9 (39.0-53.0) % MCV 94.4 (80.0-100.0) fL MCH 31.4 (25.0-35.0) pg MCHC 33.3 (31.0-37.0) g/dL RDW 13.7 (11.5-15.5) % Plt Count 289 (150-450) k/uL MPV 8.1 Neutrophils % 71 % Lymphocytes % 18 % Monocytes % 8 % Eosinophils % 1 % Basophils % 1 % Neutrophils # 5.6 (1.3-7.7) k/uL Lymphocytes # 1.4 (1.0-4.8) k/uL Monocytes # 0.6 (0-1.0) k/uL Eosinophils # 0.1 (0-0.7) k/uL Basophils # 0.0 (0-0.2) k/uL Sodium 135 L (137-145) mmol/L Potassium 5.5 H (3.5-5.1) mmol/L Chloride 100 (98-107) mmol/L Carbon Dioxide 26 (22-30) mmol/L Anion Gap 9 mmol/L BUN 14 (9-20) mg/dL Creatinine 0.99 (0.66-1.25) mg/dL Est GFR (CKD-EPI)AfAm >90 (>60 ml/min/1.73 sqM) Est GFR (CKD-EPI)NonAf 85 (>60 ml/min/1.73 sqM) Glucose 116 H (74-99) mg/dL Calcium 9.2 (8.4-10.2) mg/dL Total Bilirubin 0.3 (0.2-1.3) mg/dL AST 42 (17-59) U/L ALT 26 (4-49) U/L Alkaline Phosphatase 89 (38-126) U/L Total Protein 7.6 (6.3-8.2) g/dL Albumin 4.5 (3.5-5.0) g/dL Valproic Acid 58.2 ug/mL Disposition Clinical Impression: Status epilepticus Disposition: ADMITTED IP TO THIS [facility] Instructions (If sedation given, give patient instructions): Seizure/Epilepsy Discharge Instructions & Follow-Up Referrals: Aman Smyth MD [Primary Care Provider] - 1-2 days Time of Disposition: 18:45
[2021-11-04] MEDS ORDERED: LORazepam 2 MG/ML INJ IV STA (17:50)
[2021-11-04] MEDS ORDERED: SODIUM CHLORIDE 0.9% 1,000 ML IV ONE (19:02)
[2021-11-04] MEDS ORDERED: LORazepam 2 MG/ML INJ IV PRN (19:03)
[2021-11-04 20:20] LABS: Glucose,Whole Blood 136 mg/dL (70-110)
[2021-11-04] MEDS: levETIRAcetam 500 MG TAB PO SCH (21:13)
[2021-11-04] MEDS: ATORVASTATIN 80 MG TAB PO SCH (21:13)
[2021-11-04] MEDS: levETIRAcetam 250 MG TAB PO SCH (21:14)
[2021-11-04] MEDS: amLODIPine 2.5 MG TAB PO SCH (21:14)
[2021-11-04] MEDS: lamoTRIgine 25 MG TAB PO SCH (21:14)
[2021-11-04] MEDS: DIVALPROEX ER 500 MG TAB.ER.24H PO SCH (21:14)
[2021-11-04] MEDS: carBAMazepine 200 MG TAB PO SCH (21:15)
--- NOTE | 2021-11-05 00:49 | P.HPIM ---
History of Present Illness H&P Date: 11/04/21 The patient is a 56-year-old male with a PMH of seizure disorder, hypertension, hyperlipidemia, and type II DM who presents to the emergency room for seizures. Patient reports that he has a long-standing history of seizures for which she is taking 3 antiepileptics, with which she has been compliant. Patient reports that earlier today he had a seizure, after which she went to see his PCP where a Keppra level drawn. After returning home, the patient had another 2 seizures, witnessed by his . Patient reports that he last saw a neurologist this past March, and has normally been well controlled for his epilepsy on his current regiment. He did state however that his neurologist is planning on having a deep brain stimulator placed for him in the next year or so. Patient reported feeling at his baseline at the time of interview and denied any active complaints. He denies experiencing fever, chills, headaches, weakness, numbness. Denies chest pain, shortness of breath, nausea, vomiting, abdominal pain, diarrhea. Review of systems: Pertinent positives and negatives as discussed in HPI, a complete review of systems was performed and all other systems are negative. Physical examination: General: non toxic, no distress, appears at stated age, overweight Derm: no unusual rashes/lesions, warm Head: atraumatic, normocephalic, symmetric Eyes: EOMI, no lid lag, anicteric sclera, pupils equal round reactive to light ENT: Nose and ears atraumatic Neck: No cervical lymphadenopathy, trachea midline, supple Mouth: no lip lesion, mucus membranes moist Cardiovascular: S1S2 reg, no murmur, positive dorsalis pedis pulse bilateral, no edema Lungs: CTA bilateral, no rhonchi, no rales, no accessory muscle use Abdominal: soft, nontender to palpation, no guarding Ext: muscle strength 5 out of 5 in all 4 extremities grossly, no gross muscle atrophy, no contractures, Neuro: CN II-XI grossly intact, no gross focal neuro deficits Psych: Alert, oriented, appropriate affect Assessment/plan Breakthrough seizure -Valproic levels therapeutic -Lamictal and Keppra levels pending -Neurology consulted -Seizure precautions, fall precautions Chronic conditions: Hypertension, hyperlipidemia, type II DM -Continue with home meds DVT prophylaxis -Heparin subcu The patient is admitted with an anticipated greater than 2 midnight stay for evaluation of breakthrough seizure. CODE STATUS: Full Code Discussed with: Patient Anticipated discharge date: 2-[address]: Home Past Medical History Past Medical History: CVA/TIA, Diabetes Mellitus, Hyperlipidemia, Hypertension, Memory Impairment, Myocardial Infarction ([place]), Seizure Disorder, Sleep Apnea/CPAP/BIPAP Additional Past Medical History / Comment(s): TIA-some slight residual left sided weakness-resolved, "borderline diabetes"-diet control, no CPAP, has vagus nerve stimulator, hx migraines, epilepsy last seizure 1 month ago, Last Myocardial Infarction Date:: 2015 History of Any Multi-Drug Resistant Organisms: None Reported Past Surgical History: Adenoidectomy, Ear Surgery, Heart Catheterization, Tonsillectomy Additional Past Surgical History / Comment(s): TUBES IN EARS, VAGUS NERVE STIMULATOR IMPLANT Past Anesthesia/Blood Transfusion Reactions: Previous Problems w/ Anesthesia Additional Past Anesthesia/Blood Transfusion Reaction / Comment(s): STATES A LONG TIME TO WAKE UP AFTER ANESTHESIA. Past Psychological History: No Psychological Hx Reported Smoking Status: Never smoker Past Alcohol Use History: None Reported Past Drug Use History: None Reported - Past Family History Brother(s) Family Medical History: Cancer Additional Family Medical History / Comment(s): PROSTATE CANCER WITH METS. Medications and Allergies Home Medications Medication Instructions Recorded Confirmed Type Clopidogrel [Plavix] 75 mg PO DAILY 03/16/17 11/04/21 History levETIRAcetam [Keppra] 1,000 mg PO BID 06/22/17 11/04/21 History Divalproex ER [Depakote ER] 1,000 mg PO BID@08,199905/26/18 11/04/21 History Multivitamins, Thera [Multivitamin 1 tab PO DAILY@139905/26/18 11/04/21 History (formulary)] Niacin (Inositol Niacinate) 500 mg PO DAILY@139905/26/18 11/04/21 History [Niacin 500 mg Capsule] Atorvastatin Calcium [Lipitor] 80 mg PO HS 10/30/19 11/04/21 History Folic Acid 0.8 mg PO DAILY@139910/30/19 11/04/21 History amLODIPine [Norvasc] 2.5 mg PO HS 10/30/19 11/04/21 History lamoTRIgine [LaMICtal] 50 mg PO BID@0800,199910/30/19 11/04/21 History Cholecalciferol [Vitamin D3 (125 125 mcg PO DAILY@1400 07/12/21 11/04/21 History Mcg = 5000 Iu)] Ezetimibe [Zetia] 10 mg PO DAILY 07/12/21 11/04/21 History Thiamine [Vitamin B-1] 100 mg PO DAILY@1400 07/12/21 11/04/21 History carBAMazepine 100 mg PO DAILY@0807/12/21 11/04/21 History carBAMazepine 200 mg PO BID@1400,199907/12/21 11/04/21 History rOPINIRole HCL [Requip] 1 mg PO BID 09/23/21 11/04/21 History levETIRAcetam [Keppra] 250 mg PO BID 11/04/21 11/04/21 History Allergies Allergy/AdvReac Type Severity Reaction Status Date / Time No Known Allergies Allergy Verified 11/04/21 19:02 Physical Exam Vitals: Vital Signs Temp Pulse Resp BP Pulse Ox 11/04/21 19:52 88 162/92 11/04/21 18:32 101 H 16 164/108 97 11/04/21 16:21 98.9 F 96 16 148/91 98 Intake and Output 11/04/21 11/04/21 11/04/21 06:59 14:59 22:59 Other: Weight 81.647 kg Results CBC & Chem 7: 11/04/21 16:47 11/04/21 16:47 Labs: Abnormal Lab Results - Last 24 Hours (Table) 11/04/21 11/04/21 Range/Units 16:47 20:19 Sodium 135 L (137-145) mmol/L Potassium 5.5 H (3.5-5.1) mmol/L Glucose 116 H (74-99) mg/dL POC Glucose (mg/dL) 136 H (70-110) mg/dL
[2021-11-05 07:22] LABS: Glucose,Whole Blood 85 mg/dL (70-110)
[2021-11-05] MEDS: INSULIN ASPART (NovoLOG) 100 UNIT/ML VIAL SQ SCH ×4 (07:32→20:26)
[2021-11-05] MEDS: EZETIMIBE 10 MG TAB PO SCH (07:38)
[2021-11-05] MEDS: lamoTRIgine 25 MG TAB PO SCH ×2 (07:39→20:18)
[2021-11-05] MEDS: CLOPIDOGREL 75 MG TAB PO SCH (07:39)
[2021-11-05] MEDS: DIVALPROEX ER 500 MG TAB.ER.24H PO SCH ×2 (07:39→20:18)
[2021-11-05] MEDS: carBAMazepine 200 MG TAB PO SCH ×3 (07:40→20:17)
[2021-11-05] MEDS: levETIRAcetam 250 MG TAB PO SCH (07:40)
[2021-11-05] MEDS: HEPARIN SODIUM,PORCINE/PF 5,000 UNIT/0.5 ML SYRINGE SQ SCH ×3 (07:41→17:46)
[2021-11-05] MEDS: levETIRAcetam 500 MG TAB PO SCH ×2 (07:44→20:18)
[2021-11-05] MEDS ORDERED: levETIRAcetam 250 MG TAB PO STA (08:07)
--- NOTE | 2021-11-05 08:45 | P.CNNES ---
History of Present Illness Consult date: 11/05/21 Requesting physician: Juancarlos Varma Reason for Consult: status epilepticus History of Present Illness: This is a 56-year-old gentleman with medically intractable epilepsy, vagus nerve stimulator, prediabetes, hypertension, sleep apnea, who presented to the emergency department because of multiple seizures. He stated that he had about 4 seizures yesterday and some of the seizures were accompanied by his . He stated that that he had the episodes of loss of consciousness. Prior to seizures sometimes he'll have upset stomach or a rising sensation in the stomach. Patient is on multiple antiepileptic drug and he stated that he's been compliant taking his medication and has not missed any of him. He is on Keppra 1250 mg 1 tablet twice a day, Lamictal 50 mg 1 tablet twice a day, carbamazepine 300 mg every morning and 200 mg daily at bedtime, Depakote extended release thousand 1 g one tablet twice a day. He denies any recent fever, cough, any diarrhea or vomiting. He denies of alcohol use. Patient follows up with Dr. Evans as his neurologist. Patient has a coming-up appointment at [place], [place] for Magnetoecephalography within about [address]. According to the nurse the patient possibly had a seizure-like activity around 6 AM today that was related to her by the overnight nurse but unknown description an unknown duration. Currently patient stated that he still much better today compared to yesterday. Of note patient was seen last in our facility on 07/14/2021 for breakthrough seizure and was seen by Dr. Denson. He increased Keppra from 1000mg bid to 1250mg bid. Please refer to his notes for further details. Some other workup during this hospital visit consisted of: CBC with differential is unremarkable Chemistry panel is sodium is 135, potassium 5.5, glucose is 116, AST and ALT is within normal limits Valproic acid is 58.2 which is considered therapeutic In the ED the patient was given Ativan 1 mg once as well as a loading dose of Keppra 1 g once. Review of Systems Review of system: The 12 point system was reviewed and apparent positive and negative per HPI. Past Medical History Past Medical History: CVA/TIA, Diabetes Mellitus, Hyperlipidemia, Hypertension, Memory Impairment, Myocardial Infarction ([place]), Seizure Disorder, Sleep Apnea/CPAP/BIPAP Additional Past Medical History / Comment(s): TIA-some slight residual left sided weakness-resolved, "borderline diabetes"-diet control, no CPAP, has vagus nerve stimulator, hx migraines, epilepsy last seizure 1 month ago, Last Myocardial Infarction Date:: 2015 History of Any Multi-Drug Resistant Organisms: None Reported Past Surgical History: Adenoidectomy, Ear Surgery, Heart Catheterization, Tonsillectomy Additional Past Surgical History / Comment(s): TUBES IN EARS, VAGUS NERVE STIMULATOR IMPLANT Past Anesthesia/Blood Transfusion Reactions: Previous Problems w/ Anesthesia Additional Past Anesthesia/Blood Transfusion Reaction / Comment(s): STATES A LONG TIME TO WAKE UP AFTER ANESTHESIA. Past Psychological History: No Psychological Hx Reported Smoking Status: Never smoker Past Alcohol Use History: None Reported Past Drug Use History: None Reported - Past Family History Brother(s) Family Medical History: Cancer Additional Family Medical History / Comment(s): PROSTATE CANCER WITH METS. Medications and Allergies Home Medications Medication Instructions Recorded Confirmed Type Clopidogrel [Plavix] 75 mg PO DAILY 03/16/17 11/04/21 History levETIRAcetam [Keppra] 1,000 mg PO BID 06/22/17 11/04/21 History Divalproex ER [Depakote ER] 1,000 mg PO BID@08,199905/26/18 11/04/21 History Multivitamins, Thera [Multivitamin 1 tab PO DAILY@139905/26/18 11/04/21 History (formulary)] Niacin (Inositol Niacinate) 500 mg PO DAILY@139905/26/18 11/04/21 History [Niacin 500 mg Capsule] Atorvastatin Calcium [Lipitor] 80 mg PO 10/30/19 11/04/21 History Folic Acid 0.8 mg PO DAILY@139910/30/19 11/04/21 History amLODIPine [Norvasc] 2.5 mg PO 10/30/19 11/04/21 History lamoTRIgine [LaMICtal] 50 mg PO BID@08,199910/30/19 11/04/21 History Cholecalciferol [Vitamin D3 (125 125 mcg PO DAILY@139907/12/21 11/04/21 History Mcg = 5000 Iu)] Ezetimibe [Zetia] 10 mg PO DAILY 07/12/21 11/04/21 History Thiamine [Vitamin B-1] 100 mg PO DAILY@1400 07/12/21 11/04/21 History carBAMazepine 100 mg PO DAILY@0800 07/12/21 11/04/21 History carBAMazepine 200 mg PO BID@1400,2000 07/12/21 11/04/21 History rOPINIRole HCL [Requip] 1 mg PO BID 09/23/21 11/04/21 History levETIRAcetam [Keppra] 250 mg PO BID 11/04/21 11/04/21 History Allergies Allergy/AdvReac Type Severity Reaction Status Date / Time No Known Allergies Allergy Verified 11/04/21 19:02 Physical Examination - Vital Signs Vital Signs: Vital Signs Temp Pulse Pulse Resp BP BP Pulse Ox 11/05/21 07:00 97.7 F 75 18 121/81 96 11/05/21 06:34 97.9 F 81 18 131/84 95 11/05/21 03:20 98.4 F 79 17 114/74 97 11/04/21 22:18 142/90 11/04/21 20:19 98.5 F 104 H 20 174/114 97 11/04/21 19:52 88 162/92 11/04/21 18:32 101 H 16 164/108 97 11/04/21 16:21 98.9 F 96 16 148/91 98 Intake and Output 11/04/21 11/05/21 11/05/21 22:59 06:59 14:59 Other: Voiding Method Toilet Toilet # Voids 1 1 Weight 81.647 kg GENERAL: The patient is lying in bed and is not in acute distress. HENT: Has old scar over the left frontal region. CHEST: The heart rate is regular rate rhythm. No murmurs to auscultation. LUNG: Clear to auscultation bilaterally no wheezing noted throughout. Not labored breathing. ABDOMEN/GI: Bowel sounds present in all 4 quadrants. No tenderness to palpation throughout. PSYCH: Flat affect. NEUROLOGICAL: Higher mental function: The patient is awake, alert, oriented to self, place and time. Patient is following commands. No aphasia and no neglect. Cranial nerves: The pupils are round, equal and reactive to light and accommodation. Visual kaur are full to confrontation throughout. Extraocular movement is intact no nystagmus is noted. Facial sensation is normal to touch throughout. The facial strength is normal throughout. Hearing is normal bilaterally to hand rub. Tongue is midline and moved [id number] without any difficulty. No dysarthria is noted. Shoulder shrug is normal bilaterally. Motor: The strength is 5 over 5 throughout. Normal tone and bulk. Cerebellum: Normal finger to nose heel to chin bilaterally. Sensation: Sensation is normal to touch throughout. Reflexes (right/left): 2+ throughout. Plantars are mute bilaterally. Results - Laboratory Findings CBC and BMP: 11/04/21 16:47 11/04/21 16:47 Abnormal Lab Findings: Abnormal Labs 11/04/21 11/04/21 16:47 20:19 Sodium 135 L Potassium 5.5 H Glucose 116 H POC Glucose (mg/dL) 136 H Assessment and Plan Assessment: Breakthrough seizure and the patient had a total of possibly 5 seizures in 24 hours which is considered status epilepticus Medically intractable epilepsy and patient is on 4 antiepileptic drugs and has vagal nerve stimulator 3 diabetes Hypertension Sleep apnea Obesity Plan: I increased Keppra from 1250 mg to 1500mg 1 tablet twice a day. Continue same home medication of Lamictal 50 mg 1 tablet twice a day, carbamazepine 300 mg ev jass morning and 200 mg daily at bedtime, Depakote extended release thousand 1 g one tablet twice a day. He is on his home medication folic acid 1 mg daily. I ordered a routine EEG. Patient is on seizure precaution seizure pads Keppra level Lamictal level is pending Patient is currently on Ativan 1 mg every 2 hours when necessary for seizure coming-up appointment at [place], [place] for Magnetoecephalography within about 3 weeks. 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 Grigsby) within 1-2 weeks. If the patient continues to be seizure-free by tomorrow then he is clear for discharge from a neurological perspective. The plan was discussed with the patient as well as nurse. I will attempt to speak with the patient's later today. Thank you for the consultation. Brian Esparza M.D. Neuro-hospitalist Time with Patient: Greater than 30
[2021-11-05 11:32] LABS: Glucose,Whole Blood 138 mg/dL (70-110)
--- NOTE | 2021-11-05 13:55 | EEG ---
ELECTROENCEPHALOGRAM REPORT CLINICAL HISTORY: This is a 56-year-old gentleman with history of epilepsy, who presented to our facility because of breakthrough seizure. The video EEG is obtained to evaluate for seizure epileptiform activity. RELEVANT MEDICATIONS: Keppra, Lamictal, Depakote, Tegretol and 1 mg Ativan. EEG TYPE: A routine 21-channel EEG is performed with video using the 10/20 electrode placement system. DESCRIPTION: Wakefulness is obtained. During awake state, the background consists of low-to- moderate voltage of 7 to 8 hertz activity that is well modulated, well sustained. There is no physiological stage II sleep architecture. There is no focal slowing. INTERICTAL AND ICTAL: None. ACTIVATION PROCEDURE: Photic stimulation did not evoke a posterior driving response. There is no abnormality during the photic stimulation. Hyperventilation is not performed. CLINICAL INTERPRETATION: This is an abnormal routine EEG. The background slowing is suggestive of mild encephalopathy. There is no focal slowing, epileptiform discharge, or seizure on the EEG. Clinical correlation is recommended. MMFRANCESCO / SHARIN: [id number] / TERESA
[2021-11-05] MEDS: MULTIVITAMINS, THERA 1 EACH TAB PO SCH (14:09)
[2021-11-05] MEDS: THIAMINE 100 MG TAB PO SCH (14:09)
[2021-11-05] MEDS: NIACIN TR 500 MG CAPLET PO SCH ×2 (14:09→14:14)
[2021-11-05] MEDS: CHOLECALCIFEROL 125 MCG (5000 IU) TABLET PO SCH (14:09)
[2021-11-05] MEDS: FOLIC ACID 1 MG TAB PO SCH (14:09)
--- NOTE | 2021-11-05 14:20 | P.PN ---
Subjective Progress Note Date: 11/05/21 Hospital course: Patient is a very pleasant 56-year-old male with a past medical history of seizure disorder diagnosed at age 12 on multiple antiepileptic medications and has vagus nerve stimulator,, hypertension, hyperlipidemia, and type II diet controlled insulin-dependent diabetes mellitus. He presented to the emergency department with a chief complaint of breakthrough seizures. Patient had 2 breakthrough seizures at home was taken to his PCP where a Keppra level was drawn and upon returning home had an additional 2 seizures witnessed by his . Patient reports long-standing history of breakthrough seizures and is currently on 3 antiepileptic medications. Patient reports following with his neurologist yearly with last appointment being 03/2021. After experiencing four breakthrough seizures patient was taken to the emergency department for evaluation secondary to recurrent breakthrough seizures. He underwent full evaluation. CBC and CMP were completed were unremarkable with the exception of mild hyperkalemia with potassium of 5.5 however the specimen was hemolyzed.. Valproic acid within normal limits 58.2. Physical exam: Vital signs reviewed and stable. General: Nontoxic, no distress and appears stated age. Obese Derm: Skin warm and dry, normal coloration for ethnicity. Head: Atraumatic, normocephalic and symmetric. Eyes: EOMs intact, no lid lag, and anicteric sclera Mouth: no lip lesions, mucus membranes moist Cardiovascular: regular rate and rhythm with normal S1S2, systolic murmur, positive posterior tibial pulses bilaterally, and cap refill < 2 seconds. Lungs: Respirations even, regular, and unlabored on room air. Lungs CTA bilatera lly, no rhonchi, no rales, no wheezing, and no accessory muscle usage. Abdominal: soft, nontender to palpation, no guarding, no appreciable organomegaly Ext: ROM intact. No gross muscle atrophy, no edema, no contractures Neuro: Speech clear, face symmetrical and CN II-XII grossly intact with no noted focal neuro deficits Psych: Alert and oriented to person, place, time, and situation. Appropriate and pleasant affect. Assessment and Plan of Care: Breakthrough seizures -Valproic acid levels therapeutic -Lamictal and Keppra levels pending -Neurology following, increased Keppra to 1500 mg twice daily and recommending patient continue daily home medication of Lamictal 50 mg twice daily, Cardizem fine 300 mg every morning and 200 mg nightly, and Depakote extended release 1 g twice a day. -Seizure precautions, aspiration precautions, and fall precautions in place. -Patient informed of [place] state law stating no driving until seizure free for 6 months. Patient also instructed to avoid climbing ladders, operating dangerous or heavy machinery or unsupervised swimming until seizure free for 6 months. -EEG to be completed Hypertension -Continue daily medication regimen with amlodipine Hyperlipidemia -Continue daily medication regimen with atorvastatin and Zetia. -Continue heart healthy diet. Diabetes mellitus type 2 -Patient placed on glycemic protocol with NovoLog sliding scale. CODE STATUS: Full code DVT prophylaxis: Heparin Discussed with: Patient and RN Anticipated discharge date: Clinical course to determine Anticipated discharge place: Home A total of 35 minutes was spent on the care of this complex patient more than 50% of the time was spent in counseling and care coordination. I reviewed the documentation as provided by the LIDYA above, who is the original author of this note. I agree with the documented assessment and plan, with the following changes: none Objective - Vital Signs Vital signs: Vital Signs Temp 97.7 F 11/05/21 07:00 Pulse 75 11/05/21 07:00 Resp 18 11/05/21 08:00 BP 121/81 11/05/21 07:00 Pulse Ox 96 11/05/21 07:00 FiO2 Intake & Output 11/04/21 11/05/21 11/05/21 18:59 06:59 18:59 Weight 81.647 kg 81.647 kg Other: Voiding Method Toilet # Voids 1 - Labs CBC & Chem 7: 11/04/21 16:47 11/04/21 16:47 Labs: Abnormal Lab Results - Last 24 Hours (Table) 11/04/21 11/04/21 Range/Units 16:47 20:19 Sodium 135 L (137-145) mmol/L Potassium 5.5 H (3.5-5.1) mmol/L Glucose 116 H (74-99) mg/dL POC Glucose (mg/dL) 136 H (70-110) mg/dL
[2021-11-05 17:05] LABS: Glucose,Whole Blood 102 mg/dL (70-110)
[2021-11-05 19:40] LABS: Glucose,Whole Blood 200 mg/dL (70-110)
[2021-11-05] MEDS: ATORVASTATIN 80 MG TAB PO SCH (20:18)
[2021-11-05] MEDS: amLODIPine 2.5 MG TAB PO SCH (20:18)
[2021-11-06] MEDS: HEPARIN SODIUM,PORCINE/PF 5,000 UNIT/0.5 ML SYRINGE SQ SCH ×4 (00:04→20:37)
[2021-11-06 07:05] LABS: Glucose,Whole Blood 103 mg/dL (70-110)
[2021-11-06] MEDS: INSULIN ASPART (NovoLOG) 100 UNIT/ML VIAL SQ SCH ×4 (07:20→20:36)
[2021-11-06] MEDS: lamoTRIgine 25 MG TAB PO SCH ×2 (08:10→20:37)
[2021-11-06] MEDS: DIVALPROEX ER 500 MG TAB.ER.24H PO SCH ×2 (08:10→20:37)
[2021-11-06] MEDS: CLOPIDOGREL 75 MG TAB PO SCH (08:11)
[2021-11-06] MEDS: levETIRAcetam 500 MG TAB PO SCH ×2 (08:11→20:37)
[2021-11-06] MEDS: EZETIMIBE 10 MG TAB PO SCH (08:11)
[2021-11-06] MEDS: carBAMazepine 200 MG TAB PO SCH ×3 (08:12→20:38)
[2021-11-06 08:29] LABS: Lamotrigine (Lamictal) 2.1 ug/mL (2.0-15.0)
[2021-11-06 09:29] LABS: African American GFR (CKD) 97.8 (60.0-200.0); Albumin 4.1 g/dL (3.8-4.9); Albumin/Globulin Ratio 1.71 (1.60-3.17); Anion Gap 10.5 mmol/L (10.00-18.00); BUN/Creat Ratio 12.6 Ratio (12.00-20.00); Blood Urea Nitrogen 12.6 mg/dL (9.0-27.0); Calcium 9.1 mg/dL (8.7-10.3); Carbon Dioxide 26.5 mmol/L (20.0-27.5); Globulin 2.4 g/dL (1.6-3.3); Non-African American GFR(CKD) 84.4 (60.0-200.0); Potassium 4.4 mmol/L (3.5-5.5); Total Bilirubin 0.2 mg/dL (0.30-1.20); Total Protein 6.5 g/dL (6.2-8.2)
[2021-11-06 09:33] LABS: HCT 41.3 % (39.6-50.0); HGB 13.6 g/dL (13.0-17.0); MCH 30.5 pg (27.0-32.0); MCHC 32.9 g/dL (32.0-37.0); MCV 92.6 fL (80.0-97.0); Mean Platelet Volume 10.7 fL (9.5-12.2); NRBC Per 100 WBC 0 /100 WBCS (0.0-0.0); Platelet Count 249 X 10*3/uL (140-440); RBC 4.46 X 10*6/uL (4.40-5.60); RDW 13.6 % (11.5-14.5); WBC 8.68 X 10*3/uL (4.50-10.00)
[2021-11-06 11:47] LABS: Glucose,Whole Blood 102 mg/dL (70-110)
--- NOTE | 2021-11-06 13:18 | P.PN ---
Subjective Progress Note Date: 11/06/21 Hospital course: Patient is a very pleasant 56-year-old male with a past medical history of seizure disorder diagnosed at age 12 on multiple antiepileptic medications and has vagus nerve stimulator,, hypertension, hyperlipidemia, and type II diet controlled insulin-dependent diabetes mellitus. He presented to the emergency department with a chief complaint of breakthrough seizures. Patient had 2 breakthrough seizures at home was taken to his PCP where a Keppra level was drawn and upon returning home had an additional 2 seizures witnessed by his . Patient reports long-standing history of breakthrough seizures and is currently on 3 antiepileptic medications. Patient reports following with his neurologist yearly with last appointment being 03/2021. After experiencing four breakthrough seizures patient was taken to the emergency department for evaluation secondary to recurrent breakthrough seizures. He underwent full evaluation. CBC and CMP were completed were unremarkable with the exception of mild hyperkalemia with potassium of 5.5 however the specimen was hemolyzed.. Valproic acid within normal limits 58.2. Lamotrigine 2.1 and Keppra 18.0. Physical exam: Patient seen and fully evaluated at bedside this morning. Patient was updated on plan for discharge. Patient initially stated he felt a little fatigued similar to previous episodes of breakthrough seizures. Initial plan was for discharge home today as patient had no further episodes of seizure activity since arrival. However approximately 30 minutes after discharge was placed RN was called to bedside by patient's who reported that patient had just experienced a petit mal seizure. Discharge canceled at this time. Dr. Esparza, neurologist notified of additional seizure activity. Vital signs reviewed and stable. General: Nontoxic, no distress and appears stated age. Obese Derm: Skin warm and dry, normal coloration for ethnicity. Head: Atraumatic, normocephalic and symmetric. Eyes: EOMs intact, no lid lag, and anicteric sclera Mouth: no lip lesions, mucus membranes moist Cardiovascular: regular rate and rhythm with normal S1S2, systolic murmur, positive posterior tibial pulses bilaterally, and cap refill < 2 seconds. Lungs: Respirations even, regular, and unlabored on room air. Lungs CTA bilaterally, no rhonchi, no rales, no wheezing, and no accessory muscle usage. Abdominal: soft, nontender to palpation, no guarding, no appreciable organomegaly Ext: ROM intact. No gross muscle atrophy, no edema, no contractures Neuro: Speech clear, face symmetrical and CN II-XII grossly intact with no noted focal neuro deficits Psych: Alert and oriented to person, place, time, and situation. Appropriate and pleasant affect. Assessment and Plan of Care: Breakthrough seizures -Valproic acid, Lamictal, and Keppra levels therapeutic -Neurology following, increased Keppra to 1500 mg twice daily and recommending patient continue daily home medication of Lamictal 50 mg twice daily, Carbamazepine 300 mg every morning and 200 mg nightly, and Depakote extended release 1 g twice a day. -Seizure precautions, aspiration precautions, and fall precautions in place. -Patient informed of [place] state law stating no driving until seizure free for 6 months. Patient also instructed to avoid climbing ladders, operating dangerous or heavy machinery or unsupervised swimming until seizure free for 6 months. -EEG was completed with background slowing suggestive of mild encephalopathy, no focal slowing, epileptiform discharge, or seizure activity on EEG. Hypertension -Continue daily medication regimen with amlodipine Hyperlipidemia -Continue daily medication regimen with atorvastatin and Zetia. -Continue heart healthy diet. Diabetes mellitus type 2 -Patient placed on glycemic protocol with NovoLog sliding scale. CODE STATUS: Full code DVT prophylaxis: Heparin Discussed with: Patient and RN Anticipated discharge date: Clinical course to determine Anticipated discharge place: Home A total of 35 minutes was spent on the care of this complex patient more than 50% of the time was spent in counseling and care coordination. I reviewed the documentation as provided by the LIDYA above, who is the original author of this note. I agree with the documented assessment and plan, with the following changes: none Objective - Vital Signs Vital signs: Vital Signs Temp 97.5 F L 11/06/21 07:00 Pulse 84 11/06/21 12:16 Resp 16 11/06/21 08:07 BP 154/104 11/06/21 12:16 Pulse Ox 97 11/06/21 07:00 FiO2 Intake & Output 11/05/21 11/06/21 11/06/21 18:59 06:59 18:59 Output Total 1 Balance -1 Output: Stool 1 Other: Voiding Method Toilet Toilet # Voids 1 1 - Labs CBC & Chem 7: 11/06/21 06:25 11/06/21 06:25 Labs: Abnormal Lab Results - Last 24 Hours (Table) 11/05/21 11/06/21 Range/Units 19:39 06:25 Sodium 131 L (135-145) mmol/L Chloride 94 L (96-109) mmol/L POC Glucose (mg/dL) 200 H (70-110) mg/dL Total Bilirubin 0.20 L (0.30-1.20) mg/dL
[2021-11-06] MEDS: THIAMINE 100 MG TAB PO SCH (13:40)
[2021-11-06] MEDS: MULTIVITAMINS, THERA 1 EACH TAB PO SCH (13:40)
[2021-11-06] MEDS: FOLIC ACID 1 MG TAB PO SCH (13:40)
[2021-11-06] MEDS: CHOLECALCIFEROL 125 MCG (5000 IU) TABLET PO SCH (13:40)
[2021-11-06] MEDS: NIACIN TR 500 MG CAPLET PO SCH (13:40)
[2021-11-06] MEDS ORDERED: levETIRAcetam 250 MG TAB PO STA (15:14)
--- NOTE | 2021-11-06 15:24 | P.PN ---
Subjective Progress Note Date: 11/06/21 Upon seeing the patient at bedside, he stated he is doing well. Per nurse no further seizures overnight or today. Objective - Vital Signs Vital signs: Vital Signs Temp 97.9 F 11/06/21 14:13 Pulse 89 11/06/21 14:13 Resp 18 11/06/21 14:13 BP 132/90 11/06/21 14:13 Pulse Ox 96 11/06/21 14:13 FiO2 Intake & Output 11/05/21 11/06/21 11/06/21 18:59 06:59 18:59 Output Total 1 Balance -1 Output: Stool 1 Other: Voiding Method Toilet Toilet # Voids 1 1 - Exam GENERAL: The patient is lying in bed and is not in acute distress. HENT: Has old scar over the left frontal region. PSYCH: Flat affect. NEUROLOGICAL: Higher mental function: The patient is awake, alert, oriented to self, place and time. Patient is following commands. No aphasia and no neglect. Cranial nerves: The pupils are round, equal and reactive to light and accommodation. Visual kaur are full to confrontation throughout. Extraocular movement is intact no nystagmus is noted. Facial sensation is normal to touch throughout. The facial strength is normal throughout. Hearing is normal bilaterally to hand rub. Tongue is midline and moved [id number] without any difficulty. No dysarthria is noted. Shoulder shrug is normal bilaterally. Motor: The strength is 5 over 5 throughout. Normal tone and bulk. Cerebellum: Normal finger to nose heel to chin bilaterally. Sensation: Sensation is normal to touch throughout. Reflexes (right/left): 2+ throughout. Plantars are mute bilaterally. SOME OF THE WORK-UP DURING THIS HOSPITAL VISIT CONSISTED OF: Routine EEG is abnormal. The background slowing suggestive of mild encephalopathy. There is no focal slowing, epileptiform discharges or seizure on the EEG. Patient's Lamictal is 2.1 the normal supposed to be between 2.0-15 Keppra level is 18 and the normal supposed to be between 3 and 60 Folic acid is a 58.2 and normal specific supposed to be between 5220 - Labs CBC & Chem 7: 11/06/21 06:25 11/06/21 06:25 Labs: Abnormal Lab Results - Last 24 Hours (Table) 11/05/21 11/06/21 Range/Units 19:39 06:25 Sodium 131 L (135-145) mmol/L Chloride 94 L (96-109) mmol/L POC Glucose (mg/dL) 200 H (70-110) mg/dL Total Bilirubin 0.20 L (0.30-1.20) mg/dL Assessment and Plan Assessment: Breakthrough seizure and the patient had a total of possibly 5 seizures in 24 hours which is considered status epilepticus---resolved. Medically intractable epilepsy and patient is on 4 antiepileptic drugs and has vagal nerve stimulator 3 diabetes Hypertension Sleep apnea Obesity Plan: Continue Keppra from 1250 mg to 1500mg 1 tablet twice a day (was increased yesterday from 1250mg bid to 1500). Continue same home medication of Lamictal 50 mg 1 tablet twice a day, carbamazepine 300 mg every morning and 200 mg daily at bedtime, Depakote extended release thousand 1 g one tablet twice a day. He is on his home medication folic acid 1 mg daily. Keppra level is low normal and I expected a higher dose of Keppra level since on dose of 1250mg. Patient is on seizure precaution seizure pads Patient is currently on Ativan 1 mg every 2 hours when necessary for seizure coming-up appointment at [place], [place] for stimulator device place within 3 weeks (not sure of details). Patient is aware that per the [place] [facility] that he cannot drive for 6 month until seizure-free, avoid heights, swimming dental assistant use heavy machinery We'll defer the rest of medical management to the primary team Upon discharge the patient to follow-up with his neurologist (Dr. Grigsby) within 1-2 weeks. The plan was discussed with the patient as well as nurse. Also discussed with primary team. I attempted to contact his family members but no response. UPDATE: It seems per the nurse, was notified by nurse that around 12:47 patient felt dizzy today whn was up in the bathroom and he felt it was his typica petit mal. Therefore, will increase his Keppra to 1750mg 1 tab bid. If the patient continues to be seizure-free by tomorrow then he is clear for discharge from a neurological perspective. Brian Esparza M.D. Neuro-hospitalist Time with Patient: Less than 30
[2021-11-06 17:08] LABS: Glucose,Whole Blood 124 mg/dL (70-110)
[2021-11-06 20:04] LABS: Glucose,Whole Blood 173 mg/dL (70-110)
[2021-11-06] MEDS: ATORVASTATIN 80 MG TAB PO SCH (20:36)
[2021-11-06] MEDS: amLODIPine 2.5 MG TAB PO SCH (20:38)
[2021-11-06] MEDS: levETIRAcetam 250 MG TAB PO SCH (20:38)
[2021-11-07 07:35] LABS: Glucose,Whole Blood 99 mg/dL (70-110)
[2021-11-07] MEDS: INSULIN ASPART (NovoLOG) 100 UNIT/ML VIAL SQ SCH (07:35)
[2021-11-07] MEDS: levETIRAcetam 250 MG TAB PO SCH (07:42)
[2021-11-07] MEDS: levETIRAcetam 500 MG TAB PO SCH (07:42)
[2021-11-07] MEDS: carBAMazepine 200 MG TAB PO SCH (07:42)
[2021-11-07] MEDS: HEPARIN SODIUM,PORCINE/PF 5,000 UNIT/0.5 ML SYRINGE SQ SCH (07:42)
[2021-11-07] MEDS: DIVALPROEX ER 500 MG TAB.ER.24H PO SCH (07:42)
[2021-11-07] MEDS: EZETIMIBE 10 MG TAB PO SCH (07:42)
[2021-11-07] MEDS: CLOPIDOGREL 75 MG TAB PO SCH (07:43)
[2021-11-07] MEDS: lamoTRIgine 25 MG TAB PO SCH (07:43)
[2021-11-07 07:51] VITALS: BP 131/84; PULSE 83; RESP 20; TEMP 97.9
[2021-11-07 09:01] LABS: African American GFR (CKD) 86.2 (60.0-200.0); Albumin 4.2 g/dL (3.8-4.9); Albumin/Globulin Ratio 1.68 (1.60-3.17); Anion Gap 8.7 mmol/L (10.00-18.00); BUN/Creat Ratio 12.34 Ratio (12.00-20.00); Blood Urea Nitrogen 13.7 mg/dL (9.0-27.0); Calcium 9.4 mg/dL (8.7-10.3); Carbon Dioxide 30.2 mmol/L (20.0-27.5); Globulin 2.5 g/dL (1.6-3.3); Magnesium 2.1 mg/dL (1.5-2.4); Non-African American GFR(CKD) 74.4 (60.0-200.0); Potassium 4.7 mmol/L (3.5-5.5); Total Bilirubin 0.2 mg/dL (0.30-1.20); Total Protein 6.7 g/dL (6.2-8.2)
[2021-11-07 09:42] LABS: HCT 43.2 % (39.6-50.0); HGB 14.3 g/dL (13.0-17.0); MCH 30.6 pg (27.0-32.0); MCHC 33.1 g/dL (32.0-37.0); MCV 92.5 fL (80.0-97.0); Mean Platelet Volume 10.8 fL (9.5-12.2); NRBC Per 100 WBC 0 /100 WBCS (0.0-0.0); Platelet Count 252 X 10*3/uL (140-440); RBC 4.67 X 10*6/uL (4.40-5.60); RDW 13.6 % (11.5-14.5); WBC 9.49 X 10*3/uL (4.50-10.00)
--- NOTE | 2021-11-07 10:16 | P.PN ---
Subjective Progress Note Date: 11/07/21 The patient is seen at bedside and no further seizures per nurse that was reported overnight or today. Patient feels about the same. Objective - Vital Signs Vital signs: Vital Signs Temp 97.9 F 11/07/21 07:00 Pulse 83 11/07/21 07:00 Resp 20 11/07/21 07:00 BP 131/84 11/07/21 07:00 Pulse Ox 97 11/07/21 02:54 FiO2 Intake & Output 11/06/21 11/07/21 11/07/21 18:59 06:59 18:59 Intake Total 118 Output Total 1 Balance 117 Intake: Oral 118 Output: Stool 1 Other: Voiding Method Toilet Toilet Toilet # Voids 1 1 1 # Bowel Movements 1 - Exam GENERAL: The patient is lying in bed and is not in acute distress. HENT: Has old scar over the left frontal region. PSYCH: Flat affect. NEUROLOGICAL: Higher mental function: The patient is awake, alert, oriented to self, place and time. Patient is following commands. No aphasia and no neglect. Cranial nerves: The pupils are round, equal and reactive to light and accommodation. Visual kaur are full to confrontation throughout. Extraocular movement is intact no nystagmus is noted. Facial sensation is normal to touch throughout. The facial strength is normal throughout. Hearing is normal bilaterally to hand rub. Tongue is midline and moved [id number] without any difficulty. No dysarthria is noted. Shoulder shrug is normal bilaterally. Motor: The strength is 5 over 5 throughout. Normal tone and bulk. Cerebellum: Normal finger to nose heel to chin bilaterally. Sensation: Sensation is normal to touch throughout. Reflexes (right/left): 2+ throughout. Plantars are mute bilaterally. SOME OF THE WORK-UP DURING THIS HOSPITAL VISIT CONSISTED OF: Routine EEG is abnormal. The background slowing suggestive of mild encephalopathy. There is no focal slowing, epileptiform discharges or seizure on the EEG. Patient's Lamictal is 2.1 the normal supposed to be between 2.0-15 Keppra level is 18 and the normal supposed to be between 3 and 60 Folic acid is a 58.2 and normal specific supposed to be between 5220 - Labs CBC & Chem 7: 11/07/21 05:43 11/07/21 05:43 Labs: Abnormal Lab Results - Last 24 Hours (Table) 11/06/21 11/06/21 11/07/21 Range/Units 17:05 20:03 05:43 Sodium 130 L (135-145) mmol/L Chloride 92 L (96-109) mmol/L Carbon Dioxide 30.2 H (20.0-27.5) mmol/L Anion Gap 8.70 L (10.00-18.00) mmol/L POC Glucose (mg/dL) 124 H 173 H (70-110) mg/dL Total Bilirubin 0.20 L (0.30-1.20) mg/dL Assessment and Plan Assessment: Breakthrough seizure and the patient had a total of possibly 5 seizures in 24 hours which is considered status epilepticus---resolved. Medically intractable epilepsy and patient is on 4 antiepileptic drugs and has vagal nerve stimulator 3 diabetes Hypertension Sleep apnea Obesity Plan: Continue Keppra 1750mg 1 tablet twice a day (he was on home medication of 1250mg bid). Continue same home medication of Lamictal 50 mg 1 tablet twice a day, carbamazepine 300 mg every morning and 200 mg daily at bedtime, Depakote extended release thousand 1 g one tablet twice a day. He is on his home medicat ion folic acid 1 mg daily. Keppra level is low normal and I expected a higher dose of Keppra level since on dose of 1250mg. Patient is on seizure precaution seizure pads Patient is currently on Ativan 1 mg every 2 hours when necessary for seizure Per patient he has a coming-up appointment at [place], [place] within 3 weeks for further testing and it seems he will have implanted electrode leads in brain to localized the seizure. I spoke with the patient's via phone and she is unsure of details of procedure but will find out. Patient is aware that per the [facility] that he cannot drive for 6 month until seizure-free, avoid heights, swimming property assistant use heavy machinery We'll defer the rest of medical management to the primary team Upon discharge the patient to follow-up with his neurologist (Dr. Grigsby) within 1-2 weeks. The plan was discussed with the patient and his (via phone) as well his nurse. Patient is clear for discharge from neurological perspective. Brian Esparza M.D. Neuro-hospitalist Time with Patient: Less than 30
--- NOTE | 2021-11-07 12:06 | P.DS ---
Providers Date of admission: 11/04/21 19:02 Expected date of discharge: 11/07/21 Attending physician: Brandi Molina MD Consults: 11/04/21 19:02 Consult Physician Urgent Consulting Provider: Brian Esparza Consult Reason/Comments: Status epilepticus Do you want consulting provider notified?: Yes Primary care physician: A[facility] Course: Discharge Diagnosis: Status Epilepticus, resolved. Pt had a total of 5 Breakthrough seizures over a 24 hour period, this is considered status epilepticus which has now resolved and pt seizure free x 24 hours. Valproic acid, Lamotrigine, and Keppra levels all within normal limits. Patient underwent evaluation by neurology. Keppra was increased to 1500 mg twice daily and patient recommended to continue daily home medication regimen with Lamictal 50 mg twice daily, carbamazepine 300 mg every morning and 200 mg nightly, and Depakote extended release 1 g twice daily. EEG was completed with background slowing suggestive of mild encephalopathy, no focal slowing, epileptiform discharge, or seizure activity on EEG. Patient to follow-up with neurology as scheduled and to follow-up as scheduled on 11/25/21 in [place] with neurosurgeon for deep brain stimulator. Patient informed of [place] state law stating no driving until seizure free for 6 months. Patient also instructed to avoid climbing ladders, operating dangerous or heavy machinery or unsupervised swimming until seizure free for 6 months. Hypertension. Continue daily medication regimen with amlodipine Hyperlipidemia. Continue daily medication regimen with atorvastatin and Zetia. Diabetes mellitus type 2. Patient placed on glycemic protocol with NovoLog sliding scale. Hospital Course: Patient is a very pleasant 56-year-old male with a past medical history of seizure disorder diagnosed at age 12 on multiple antiepileptic medications and has vagus nerve stimulator,, hypertension, hyperlipidemia, and type II diet controlled insulin-dependent diabetes mellitus. He presented to the emergency department with a chief complaint of breakthrough seizures. Patient had 2 breakthrough seizures at home was taken to his PCP where a Keppra level was drawn and upon returning home had an additional 2 seizures witnessed by his . Patient reports long-standing history of breakthrough seizures and is currently on 3 antiepileptic medications. Patient reports following with his neurologist yearly with last appointment being 03/2021. After experiencing four breakthrough seizures patient was taken to the emergency department for evaluation secondary to recurrent breakthrough seizures. He underwent full evaluation. CBC and CMP were completed were unremarkable with the exception of mild hyperkalemia with potassium of 5.5 however the specimen was hemolyzed.. Valproic acid within normal limits 58.2. Lamotrigine 2.1 and Keppra 18.0. Patient underwent evaluation by neurology. Keppra was increased to 1500 mg twice daily and patient recommended to continue daily home medication regimen with Lamictal 50 mg twice daily, carbamazepine 300 mg every morning and 200 mg nightly, and Depakote extended release 1 g twice daily. EEG was completed with background slowing suggestive of mild encephalopathy, no focal slowing, epileptiform discharge, or seizure activity on EEG. Patient is medically stable and has been seizure-free for greater than 24 hours. Patient to follow-up outpatient with neurology as scheduled and to follow-up as scheduled on 11/25/21 in [place] with neurosurgeon for deep brain stimulator. Patient informed of [place] law stating no driving until seizure free for 6 months. Patient also instructed to avoid climbing ladders, operating dangerous or heavy machinery or unsupervised swimming until seizure free for 6 months. Physical exam: Vital signs reviewed and stable. General: Nontoxic, no distress and appears stated age. Obese Derm: Skin warm and dry, normal coloration for ethnicity. Head: Atraumatic, normocephalic and symmetric. Eyes: EOMs intact, no lid lag, and anicteric sclera Mouth: no lip lesions, mucus membranes moist Cardiovascular: regular rate and rhythm with normal S1S2, systolic murmur, positive posterior tibial pulses bilaterally, and cap refill < 2 seconds. Lungs: Respirations even, regular, and unlabored on room air. Lungs CTA bilaterally, no rhonchi, no rales, no wheezing, and no accessory muscle usage. Abdominal: soft, nontender to palpation, no guarding, no appreciable organomegaly Ext: ROM intact. No gross muscle atrophy, no edema, no contractures Neuro: Speech clear, face symmetrical and CN II-XII grossly intact with no noted focal neuro deficits Psych: Alert and oriented to person, place, time, and situation. Appropriate and pleasant affect. A total of 38 minutes of time were spent preparing this complex discharge summary. Pt was discharged on 11/07/21 11:37 AM. I reviewed the documentation as provided by the LIDYA above, who is the original author of this note. I agree with the documented assessment and plan, with the following changes: none Patient Condition at Discharge: Stable Plan - Discharge Summary Discharge Rx Participant: No New Discharge Prescriptions: New levETIRAcetam [Keppra] 1,500 mg PO Q12HR 30 Days #180 tab Continue Clopidogrel [Plavix] 75 mg PO DAILY Divalproex ER [Depakote ER] 1,000 mg PO BID@0800,1999 Niacin (Inositol Niacinate) [Niacin 500 mg Capsule] 500 mg PO DAILY@1400 Multivitamins, Thera [Multivitamin (formulary)] 1 tab PO DAILY@1400 lamoTRIgine [LaMICtal] 50 mg PO BID@799,1999 amLODIPine [Norvasc] 2.5 mg PO HS Atorvastatin Calcium [Lipitor] 80 mg PO HS Folic Acid 0.8 mg PO DAILY@1400 Thiamine [Vitamin B-1] 100 mg PO DAILY@1400 Cholecalciferol [Vitamin D3 (125 Mcg = 5000 Iu)] 125 mcg PO DAILY@1400 Ezetimibe [Zetia] 10 mg PO DAILY carBAMazepine 200 mg PO BID@1400,1999 carBAMazepine 100 mg PO DAILY@0800 rOPINIRole HCL [Requip] 1 mg PO BID Discontinued levETIRAcetam [Keppra] 1,000 mg PO BID levETIRAcetam [Keppra] 250 mg PO BID Discharge Medication List Clopidogrel [Plavix] 75 mg PO DAILY 03/16/17 [History] Divalproex ER [Depakote ER] 1,000 mg PO BID@0800,199905/26/18 [History] Multivitamins, Thera [Multivitamin (formulary)] 1 tab PO DAILY@1400 05/26/18 [History] Niacin (Inositol Niacinate) [Niacin 500 mg Capsule] 500 mg PO DAILY@1400 05/26/18 [History] Atorvastatin Calcium [Lipitor] 80 mg PO HS 10/30/19 [History] Folic Acid 0.8 mg PO DAILY@1400 10/30/19 [History] amLODIPine [Norvasc] 2.5 mg PO HS 10/30/19 [History] lamoTRIgine [LaMICtal] 50 mg PO BID@0800,199910/30/19 [History] Cholecalciferol [Vitamin D3 (125 Mcg = 5000 Iu)] 125 mcg PO DAILY@1400 07/12/21 [History] Ezetimibe [Zetia] 10 mg PO DAILY 07/12/21 [History] Thiamine [Vitamin B-1] 100 mg PO DAILY@1400 07/12/21 [History] carBAMazepine 100 mg PO DAILY@0800 07/12/21 [History] carBAMazepine 200 mg PO BID@1400,2000 07/12/21 [History] rOPINIRole HCL [Requip] 1 mg PO BID 09/23/21 [History] levETIRAcetam [Keppra] 1,500 mg PO Q12HR 30 Days #180 tab 11/06/21 [Rx] Follow up Appointment(s)/Referral(s): Aman Smyth MD [Primary Care Provider] - 1-2 days [facility], [NON-STAFF] - 1 Week Patient Instructions/Handouts: Seizure/Epilepsy Discharge Instructions & Follow-Up Activity/Diet/Wound Care/Special Instructions: Activity: As tolerated. Take breaks as needed. Diet: Heart healthy and carb consistent diet. Avoid salts, or foods with hidden salts such as canned or boxed foods and frozen dinners. Extra salt makes your heart work harder and traps the fluid in your body for longer. Special Instructions: Take all of your medications as directed and remember to keep all of your doctor's appointments and follow-up as needed. [place] state law states no driving until seizure free for 6 months. It is also important to avoid climbing ladders, operating dangerous or heavy machinery or unsupervised swimming until seizure free for 6 months. Please follow up with your neurologist in 1-2 weeks as well as with your neurosurgeon in [place] as scheduled on November 25. Thank you for allowing us to participate in your care, it was truly a pleasure having you for our patient!!! Discharge Disposition: HOME WITH HOME HEALTH SERVICES
== END 2021-11-07 12:51 | disposition home health service (06) | DRG 101 ==
LOC: EC 16:09 → 5NMEDONC 19:02 → 6NMEDSUR 19:41
PROVIDERS: ADMIT Family Medicine; ATTEND Family Medicine
DX: G40.911 Epilepsy, unspecified, intractable, with status epilepticus (principal); E11.9 Type 2 diabetes mellitus without complications; I10 Essential (primary) hypertension; E78.5 Hyperlipidemia, unspecified; E87.5 Hyperkalemia; E66.9 Obesity, unspecified; Z68.29 Body mass index [BMI] 29.0-29.9, adult; G47.30 Sleep apnea, unspecified; I25.2 Old myocardial infarction; Z79.02 Long term (current) use of antithrombotics/antiplatelets; Z79.899 Other long term (current) drug therapy; Z96.82 Presence of neurostimulator; Z86.73 Personal history of transient ischemic attack (TIA), and cerebral infarction without residual deficits; Z80.42 Family history of malignant neoplasm of prostate
CPT/HCPCS: 36415; 80053; 80164; 80175; 80177; 83735; 85025; 85027; 95816; 96365; 96375; 99285

== ENCOUNTER 2022-08-12 16:27 | Emergency (ER) | payer OTHER, MEDICARE ==
[2022-08-12] MEDS ORDERED: SODIUM CHLORIDE 0.9% 500 ML 500 ML IV STA (16:51)
--- NOTE | 2022-08-12 17:09 | ED ---
Seizure HPI - General Chief Complaint: Seizure Stated Complaint: Seizure Time Seen by Provider: 08/12/22 16:41 Source: patient, EMS, RN notes reviewed, old records reviewed Mode of arrival: EMS Limitations: no limitations - History of Present Illness Initial Comments: Nontoxic. 37-year-old male presents emergency room with recurrent seizure disorder. He had a seizure today while at a store. Witnesses state that patient was found on all fours. Patient states seizure possibly lasted 5 minutes. Does have a vagus nerve stimulator and had microchips place by a neurosurgeon in [place] in March of last year. With the seizure disorder. Patient sees Dr.none) Rina Henderson and is scheduled to see him tomorrow. His last seizure was in April. He does take Keppra, crepitus been taking Lamictal for seizure disorder. He does take Plavix after with a history of acute FL. Does not know what he hit his head. Denies any pain or discomf ort. No headaches. No bowel or bladder incontinence, MD Complaint: seizure -: hour(s) -: minutes(s) (5) Witnessed: yes - by bystander Trauma: No Seizure History: known seizure disorder Place: street/outdoors Possible Precipitating Event: none Associated Symptoms: denies other symptoms Treatments Prior to Arrival: none - Related Data Home Medications Medication Instructions Recorded Confirmed Clopidogrel [Plavix] 75 mg PO DAILY@0800 03/16/17 08/12/22 Divalproex ER [Depakote ER] 1,000 mg PO BID@0800,199905/26/18 08/12/22 Multivitamins, Thera [Multivitamin 1 tab PO DAILY@139905/26/18 08/12/22 (formulary)] Niacin (Inositol Niacinate) 500 mg PO DAILY@139905/26/18 08/12/22 [Niacin 500 mg Capsule] Atorvastatin Calcium [Lipitor] 80 mg PO HS 10/30/19 08/12/22 Folic Acid 0.8 mg PO DAILY@139910/30/19 08/12/22 amLODIPine [Norvasc] 2.5 mg PO HS 10/30/19 08/12/22 lamoTRIgine [LaMICtal] 50 mg PO BID@0800,199910/30/19 08/12/22 Cholecalciferol [Vitamin D3 (125 125 mcg PO DAILY@1400 07/12/21 08/12/22 Mcg = 5000 Iu)] Ezetimibe [Zetia] 10 mg PO HS 07/12/21 08/12/22 Thiamine [Vitamin B-1] 100 mg PO DAILY@1400 07/12/21 08/12/22 carBAMazepine 100 mg PO DAILY@0800 07/12/21 08/12/22 carBAMazepine 200 mg PO BID@1400,199907/12/21 08/12/22 rOPINIRole HCL [Requip] 1 mg PO BID@0800,199909/23/21 08/12/22 fluorouraciL [Efudex] 1 applic TOPICAL BID PRN 08/12/22 08/12/22 levETIRAcetam [Keppra] 1,000 mg PO BID@0800,199908/12/22 08/12/22 levETIRAcetam [Keppra] 500 mg PO BID@0800,199908/12/22 08/12/22 Allergies Allergy/AdvReac Type Severity Reaction Status Date / Time No Known Allergies Allergy Verified 08/12/22 17:45 Are you currently using a commercial credit reviewer's license (CDL) as a part of your employment, either self-employed or otherwise?: No Review of Systems ROS Statement: Those systems with pertinent positive or pertinent negative responses have been documented in the HPI. ROS Other: All systems not noted in ROS Statement are negative. Past Medical History Past Medical History: CVA/TIA, Diabetes Mellitus, Hyperlipidemia, Hypertension, Memory Impairment, Myocardial Infarction ([place]), Seizure Disorder, Sleep Apnea/CPAP/BIPAP Additional Past Medical History / Comment(s): TIA-some slight residual left sided weakness-resolved, "borderline diabetes"-diet control, no CPAP, has vagus nerve stimulator, hx migraines, epilepsy last seizure 1 month ago, Last Myocardial Infarction Date:: 2015 History of Any Multi-Drug Resistant Organisms: None Reported Past Surgical History: Adenoidectomy, Ear Surgery, Heart Catheterization, Tonsillectomy Additional Past Surgical History / Comment(s): TUBES IN EARS, VAGUS NERVE STIMULATOR IMPLANT Past Anesthesia/Blood Transfusion Reactions: Previous Problems w/ Anesthesia Additional Past Anesthesia/Blood Transfusion Reaction / Comment(s): STATES A LONG TIME TO WAKE UP AFTER ANESTHESIA. Past Psychological History: No Psychological Hx Reported Smoking Status: Never smoker Past Alcohol Use History: None Reported Past Drug Use History: None Reported - Past Family History Brother(s) Family Medical History: Cancer Additional Family Medical History / Comment(s): PROSTATE CANCER WITH METS. General Exam Limitations: no limitations General appearance: alert, in no apparent distress Head exam: Present: atraumatic, normal inspection Expanded Head exam: Absent: laceration, contusion, hematoma, general tenderness, CSF rhinorrhea, CSF otorrhea Eye exam: Present: normal appearance, EOMI. Absent: scleral icterus, conjunctival injection, periorbital swelling Pupils: Present: normal accommodation ENT exam: Present: normal oropharynx, mucous membranes moist Neck exam: Present: full ROM. Absent: tenderness, meningismus Respiratory exam: Absent: respiratory distress, accessory muscle use Cardiovascular Exam: Present: tachycardia GI/Abdominal exam: Present: soft. Absent: distended, tenderness, rigid Extremities exam: Present: normal capillary refill. Absent: pedal edema Neurological exam: Present: alert, oriented X3, CN II-XII intact Expanded Patient oriented to: Present: person, place, time Speech: Present: fluid speech Cerebellar function: Finger to Nose: Normal Motor strength exam: RUE: 5, LUE: 5, RLE: 5, LLE: 5 Eye Response: (4) open spontaneously Motor Response: (6) obeys commands Verbal Response: (5) oriented [place] Total: 15 Psychiatric exam: Present: normal affect, normal mood Skin exam: Present: warm, dry, normal color. Absent: cyanosis, diaphoretic, petechiae, pallor Course Vital Signs 08/12/22 08/12/22 16:28 18:44 Temperature 98.1 F 98.4 F Pulse Rate 106 H 94 Respiratory 20 18 Rate Blood Pressure 151/109 149/94 O2 Sat by Pulse 96 99 Oximetry Medical Decision Making - Medical Decision Making Sodium 128 corrected for hyperglycemia of 178 is 129. Other electrolytes and CBC unremarkable. Carbamazepine level 9.6. Patient has no focal neurological deficits at this time. Denies any pain or discomfort. Patient states that appointment with his neurologist tomorrow. Does take Depakote, Lamictal and Keppra for his seizure disorder. Was pt. sent in by a medical professional or institution (, PA, HIDE SPLITTER, urgent care, hospital, or shelter...) When possible be specific @ -No Did you speak to anyone other than the patient for history (EMS, parent, family, police, friend...)? What history was obtained from this source @ -No Did you review nursing and triage notes (agree or disagree)? Why? @ -I reviewed and agree with nursing and triage notes Were old charts reviewed (outside hosp., previous admission, EMS record, old EKG, old radiological studies, urgent care reports/EKG's, shelter records)? Report findings @ -Previous labs showing hyponatremia Differential Diagnosis (chest pain, altered mental status, abdominal pain women, abdominal pain men, vaginal bleeding, weakness, fever, dyspnea, syncope, headache, dizziness, GI bleed, back pain, seizure, CVA, palpatations, mental health, musculoskeletal)? @ -Differential Seizure: Recurrent seizure disorder, febrile seizure, alcohol withdrawal, stimulants, meningitis, encephalitis, intercranial hemorrhage, intracranial tumor, stroke, eclampsia, thyrotoxicosis, hypocalcemia, hyponatremia, hypernatremia, hypomagnesemia, psychogenic, this is not meant to be an all-inclusive list. EKG interpreted by me (3pts min.). @ -As above X-rays interpreted by me (1pt min.). @ -None done CT interpreted by me (1pt min.). @ -Yes CT interpreted by me shows no intracranial hemorrhage or midline shift. Implant right parietal. Radiologist interpretation no acute intracranial process. Postsurgical changes with 3 leads present. Visualized portions of the leads appear intact. No evidence of cervical spine fracture. Mild multilevel degenerative disc disease. U/S interpreted by me (1pt. min.). @ -None done What testing was considered but not performed or refused? (CT, X-rays, U/S, labs)? Why? @ -None What meds were considered but not given or refused? Why? @ -None Did you discuss the management of the patient with other professionals (professionals i.e. Dr., PA, HIDE SPLITTER, lab, RT, psych nurse, web content & social media manager, outreach and education social worker, teacher, security officer supervisor, case planner)? Give summary @ -No Was smoking cessation discussed for >3mins.? @ -No Was critical care preformed (if so, how long)? @ -No Were there social determinants of health that impacted care today? How? (Homelessness, low income, unemployed, alcoholism, drug addiction, transportation, low edu. Level, literacy, decrease access to med. care, residential, rehab)? @ -No Was there de-escalation of care discussed even if they declined (Discuss DNR or withdrawal of care, Hospice)? DNR status @ -No What co-morbidities impacted this encounter? (DM, HTN, Smoking, COPD, CAD, Cancer, CVA, ARF, Chemo, Hep., AIDS, mental health diagnosis, sleep apnea, morbid obesity)? @ -Patient has a history of seizure disorder, diabetes, CVA TIA, hypertension, [place], vagus nerve stimulator Was patient admitted / discharged? Hospital course, mention meds given and route, prescriptions, significant lab abnormalities, going to OR and other pertinent info. @ -Patient takes Depakote, Lamictal and Keppra for his seizure disorder. Sodium corrected for hyperglycemia is 129. Other electrolytes and CBC were unremarkable. Carbamazepine level 9.6. Patient has no focal deficits at this time. Denies any pain or discomfort. Discharged home and states has an appointment with his neurologist tomorrow. He is to keep that appointment. Return to the emergency room with a concerning symptoms. He is agreeable to this plan of care. Patient does not work. He was directed not to drive until cleared to by his neurologist. Undiagnosed new problem with uncertain prognosis? @ -No Drug Therapy requiring intensive monitoring for toxicity (Heparin, Nitro, Insulin, Cardizem)? @ -No Were any procedures done? @ -No Diagnosis/symptom? @ -seizure disorder Acute, or Chronic, or Acute on Chronic? @ -Acute on chronic Uncomplicated (without systemic symptoms) or Complicated (systemic symptoms)? @ -Uncomplicated Side effects of treatment? @ -No Exacerbation, Progression, or Severe Exacerbation? @ -No Poses a threat to life or bodily function? How? (Chest pain, [place], FL, pneumonia, PE, COPD, DKA, ARF, appy, cholecystitis, CVA, Diverticulitis, Homicidal, Suicidal, threat to staff... and all critical care pts) @ -No - Lab Data Result diagrams: 08/12/22 17:04 08/12/22 17:04 Lab Results 08/12/22 08/12/22 Range/Units 17:04 17:04 WBC 5.3 (3.8-10.6) k/uL RBC 4.57 (4.30-5.90) m/uL Hgb 14.0 (13.0-17.5) gm/dL Hct 41.4 (39.0-53.0) % MCV 90.5 (80.0-100.0) fL MCH 30.6 (25.0-35.0) pg MCHC 33.8 (31.0-37.0) g/dL RDW 12.9 (11.5-15.5) % Plt Count 236 (150-450) k/uL MPV 8.1 Neutrophils % 63 % Lymphocytes % 25 % Monocytes % 9 % Eosinophils % 1 % Basophils % 0 % Neutrophils # 3.4 (1.3-7.7) k/uL Lymphocytes # 1.3 (1.0-4.8) k/uL Monocytes # 0.5 (0-1.0) k/uL Eosinophils # 0.1 (0-0.7) k/uL Basophils # 0.0 (0-0.2) k/uL Sodium 128 L (137-145) mmol/L Potassium 4.4 (3.5-5.1) mmol/L Chloride 91 L (98-107) mmol/L Carbon Dioxide 26 (22-30) mmol/L Anion Gap 11 mmol/L BUN 6 L (9-20) mg/dL Creatinine 0.77 (0.66-1.25) mg/dL Est GFR (CKD-EPI)AfAm >90 (>60 ml/min/1.73 sqM) Est GFR (CKD-EPI)NonAf >90 (>60 ml/min/1.73 sqM) Glucose 178 H (74-99) mg/dL Calcium 8.7 (8.4-10.2) mg/dL Magnesium 1.7 (1.6-2.3) mg/dL Total Bilirubin 0.6 (0.2-1.3) mg/dL AST 39 (17-59) U/L ALT 27 (4-49) U/L Alkaline Phosphatase 68 (38-126) U/L Total Protein 7.1 (6.3-8.2) g/dL Albumin 4.2 (3.5-5.0) g/dL Carbamazepine 9.6 ug/mL Disposition Clinical Impression: Generalized seizure Disposition: HOME SELF-CARE Condition: Good Instructions (If sedation given, give patient instructions): Seizure/Epilepsy Discharge Instructions & Follow-Up, Recurrent Seizures in Adults (ED) Additional Instructions: Follow-up with your neurologist as scheduled tomorrow. Return to the emergency room with any new or concerning symptoms. Continue taking your medications as prescribed. Is patient prescribed a controlled substance at d/c from ED?: No Referrals: Aman Smyth MD [Primary Care Provider] - 1-2 days Time of Disposition: 18:46
[2022-08-12 17:40] LABS: Basophils % (A) 0 %; Eosinophils # (A) 0.1 k/uL (0-0.7); Eosinophils % (A) 1 %; HCT 41.4 % (39.0-53.0); Lymphocytes # (A) 1.3 k/uL (1.0-4.8); Lymphocytes % (A) 25 %; MCH 30.6 pg (25.0-35.0); MCHC 33.8 g/dL (31.0-37.0); MCV 90.5 fL (80.0-100.0); Mean Platelet Volume 8.1; Monocytes # (A) 0.5 k/uL (0-1.0); Monocytes % (A) 9 %; Neutrophils # (A) 3.4 k/uL (1.3-7.7); Neutrophils % (A) 63 %; Platelet Count 236 k/uL (150-450); RBC 4.57 m/uL (4.30-5.90); RDW 12.9 % (11.5-15.5); WBC 5.3 k/uL (3.8-10.6)
[2022-08-12 17:50] LABS: ALT 27 U/L (4-49); African American GFR (CKD) >90 (>60 ml/min/1.73 sqM); Albumin 4.2 g/dL (3.5-5.0); Anion Gap 11 mmol/L; Blood Urea Nitrogen 6 mg/dL (9-20); Calcium 8.7 mg/dL (8.4-10.2); Carbamazepine (Tegretol) 9.6 ug/mL; Carbon Dioxide 26 mmol/L (22-30); Chloride 91 mmol/L (98-107); Glucose 178 mg/dL (74-99); Non-African American GFR(CKD) >90 (>60 ml/min/1.73 sqM); Sodium 128 mmol/L (137-145); Total Bilirubin 0.6 mg/dL (0.2-1.3); Total Protein 7.1 g/dL (6.3-8.2)
[2022-08-12 18:08] LABS: AST 39 U/L (17-59); Alkaline Phosphatase 68 U/L (38-126); Magnesium 1.7 mg/dL (1.6-2.3); Potassium 4.4 mmol/L (3.5-5.1)
--- NOTE | 2022-08-12 18:30 | CT ---
EXAMINATION TYPE: CT brain cspine wo con CT DLP: 1586.4 mGycm, Automated exposure control for dose reduction was used. DATE OF EXAM: 08/12/2022 5:52 PM COMPARISON: 07/22/2021. CLINICAL INDICATION:Male, 57 years old with history of pain; seizure TECHNIQUE: Brain: Multiple axial CT images of the brain were obtained without IV contrast. Cspine: Axial CT images from the skull base to the inferior aspect of T2 we obtained without intraven ous contrast. Coronal and sagittal reformatted images were also reviewed. FINDINGS: Brain: Streak artifact from metal limits evaluation slightly. Extra-axial spaces: No abnormal extra-axial fluid collections. Right lateral more inferior leads term inating near the right temporal lobe and near the right lateral ventricle near the thalamus. Ventricular system: Dilatation in proportion to cerebral atrophy. Cerebral parenchyma: No acute intraparenchymal hemorrhage or mass effect. The acosta-white junction is well differentiated. Cerebellum: Unremarkable. Mass effect: No evidence of midline shift. Intracranial vasculature: unremarkable Soft tissues: Normal. Calvarium/osseous structures: No depressed skull fracture. Craniotomy is present on the right which a re new from 07/12/2021. Postsurgical changes to the right temporal bone. Paranasal sinuses and mastoid air cells: Clear. Visualized orbits: Orbital contents are intact. Cervical spine: Fracture: None. Osseous structures: Multilevel degenerative disc disease changes with endplate spurring and disc oste ophyte complex's. Vertebral alignment: Within normal limits. Spinal canal/Neural Foramina: No evidence of significant spinal canal narrowing. No evidence for sign ificant neural foraminal stenosis. Neck soft tissues: Prevertebral soft tissues are within normal limits. Electronic leads terminating i n the left neck near the left common carotid artery. Calcifications of the nuchal ligament are presen t. Other: The airway is patent. Azygous fissure is noted. IMPRESSION: 1. No acute intracranial process. 2. Postsurgical changes with 3 leads present. Visualized portions of the leads appear intact. 3. No evidence of cervical spine fracture. 4. Mild multilevel degenerative disc disease.
[2022-08-12 18:45] VITALS: BP 149/94; PULSE 94; RESP 18; TEMP 98.4
== END 2022-08-12 19:09 | disposition home or self-care (01) ==
LOC: EC 16:27
DX: R56.9 Unspecified convulsions (principal); E11.9 Type 2 diabetes mellitus without complications; E78.5 Hyperlipidemia, unspecified; I10 Essential (primary) hypertension; I25.2 Old myocardial infarction; Z86.73 Personal history of transient ischemic attack (TIA), and cerebral infarction without residual deficits; Z79.899 Other long term (current) drug therapy; Z79.02 Long term (current) use of antithrombotics/antiplatelets
CPT/HCPCS: 36415; 70450; 72125; 80053; 80156; 80177; 83735; 85025; 93005; 96360; 99285

== ENCOUNTER 2022-10-05 11:33 | Observation (INO) | payer OTHER, MEDICARE ==
--- NOTE | 2022-10-05 12:38 | ED ---
General Adult HPI - General Chief complaint: Seizure Stated complaint: Seizure Time Seen by Provider: 10/05/22 12:01 Source: EMS Mode of arrival: ambulatory - History of Present Illness Initial comments: Dictation was produced using [employer] dictation software. please excuse any grammatical, word or spelling errors. Chief Complaint: 57-year-old male with past medical history seizure presents with seizures History of Present Illness: History of present also obtained from at the bedside. Patient is 57-year-old male he has extensive history of seizure. He takes 3 antiseizure medications. Patient with medication. Septum patient had a seizure lasting for several minutes. EMS was called. On EMS arrival patient and the seizure. Given 10 mg of IM Versed. The ROS documented in this emergency department record has been reviewed and confirmed by me. Those systems with pertinent positive or negative responses have been documented in the HPI. All other systems are other negative and/or noncontributory. - Related Data Home Medications Medication Instructions Recorded Confirmed Clopidogrel [Plavix] 75 mg PO DAILY@0800 03/16/17 10/05/22 Divalproex ER [Depakote ER] 1,000 mg PO BID@0800,199905/26/18 10/05/22 Multivitamins, Thera [Multivitamin 1 tab PO DAILY@139905/26/18 10/05/22 (formulary)] Niacin (Inositol Niacinate) 500 mg PO DAILY@139905/26/18 10/05/22 [Niacin 500 mg Capsule] Atorvastatin Calcium [Lipitor] 80 mg PO HS 10/30/19 10/05/22 Folic Acid 0.8 mg PO DAILY@139910/30/19 10/05/22 amLODIPine [Norvasc] 2.5 mg PO HS 10/30/19 10/05/22 lamoTRIgine [LaMICtal] 50 mg PO BID@0800,199910/30/19 10/05/22 Cholecalciferol [Vitamin D3 (125 125 mcg PO DAILY@139907/12/21 10/05/22 Mcg = 5000 Iu)] Ezetimibe [Zetia] 10 mg PO HS 07/12/21 10/05/22 Thiamine [Vitamin B-1] 100 mg PO DAILY@139907/12/21 10/05/22 carBAMazepine 100 mg PO DAILY@0800 07/12/21 10/05/22 carBAMazepine 200 mg PO BID@1400,199907/12/21 10/05/22 rOPINIRole HCL [Requip] 1 mg PO BID@0800,199909/23/21 10/05/22 fluorouraciL [Efudex] 1 applic TOPICAL BID PRN 08/12/22 10/05/22 levETIRAcetam [Keppra] 1,000 mg PO BID@0800,199908/12/22 10/05/22 levETIRAcetam [Keppra] 500 mg PO BID@0800,199908/12/22 10/05/22 Allergies Allergy/AdvReac Type Severity Reaction Status Date / Time No Known Allergies Allergy Verified 10/05/22 13:44 Review of Systems ROS Statement: Those systems with pertinent positive or pertinent negative responses have been documented in the HPI. ROS Other: All systems not noted in ROS Statement are negative. Past Medical History Past Medical History: CVA/TIA, Diabetes Mellitus, Hyperlipidemia, Hypertension, Memory Impairment, Myocardial Infarction (IA), Seizure Disorder, Sleep Apnea/CPAP/BIPAP Additional Past Medical History / Comment(s): TIA-some slight residual left sided weakness-resolved, "borderline diabetes"-diet control, no CPAP, has vagus nerve stimulator, hx migraines, epilepsy last seizure 1 month ago, Last Myocardial Infarction Date:: 2015 History of Any Multi-Drug Resistant Organisms: None Reported Past Surgical History: Adenoidectomy, Ear Surgery, Heart Catheterization, Tonsillectomy Additional Past Surgical History / Comment(s): TUBES IN EARS, VAGUS NERVE ST IMULATOR IMPLANT Past Anesthesia/Blood Transfusion Reactions: Previous Problems w/ Anesthesia Additional Past Anesthesia/Blood Transfusion Reaction / Comment(s): STATES A LONG TIME TO WAKE UP AFTER ANESTHESIA. Past Psychological History: No Psychological Hx Reported Smoking Status: Never smoker Past Alcohol Use History: None Reported Past Drug Use History: None Reported - Past Family History Brother(s) Family Medical History: Cancer Additional Family Medical History / Comment(s): PROSTATE CANCER WITH METS. General Exam - General Exam Comments Initial Comments: PHYSICAL EXAM: General Impression: Todd, somnolent, not in acute distress HEENT: Normocephalic atraumatic, extra-ocular movements intact, pupils equal and reactive to light bilaterally, mucous membranes moist. Cardiovascular: Heart regular rate and rhythm Chest: , no retractions, no tachypnea Abdomen: abdomen soft, non-tender, non-distended, no organomegaly Musculoskeletal: Pulses present and equal in all extremities, no peripheral edema Motor: no focal deficits noted Neurological: CN II-XII grossly intact, no focal motor or sensory deficits noted Skin: Intact with no visualized rashes Course Vital Signs 10/05/22 10/05/22 10/05/22 11:34 12:15 12:30 Temperature 97.4 F L Pulse Rate 91 84 71 Respiratory 16 14 20 Rate Blood Pressure 105/62 84/49 84/49 O2 Sat by Pulse 90 L 93 L 92 L Oximetry 10/05/22 10/05/22 10/05/22 12:57 13:00 13:30 Temperature Pulse Rate 71 69 66 Respiratory 18 22 17 Rate Blood Pressure 100/61 100/61 99/50 O2 Sat by Pulse 100 100 98 Oximetry 10/05/22 10/05/22 10/05/22 14:00 14:30 15:12 Temperature Pulse Rate 89 78 80 Respiratory 17 16 16 Rate Blood Pressure 125/65 127/68 128/75 O2 Sat by Pulse 98 98 96 Oximetry EKG Findings - EKG Comments: EKG Findings:: My EKG interpretation: Ventricular rate 81, sinus rhythm,. Interval 165, QRS 14, QTC 422. No MD prolongation, no QTC prolongation, no ST or T-wave changes noted. EKG compared to 08/12/2022 showing no changes. Overall, this EKG is unremarkable Medical Decision Making - Medical Decision Making Was pt. sent in by a medical professional or institution (, PA, CONSTRUCTION EQUIPMENT OVERHAULER, urgent care, hospital, or group home...) When possible be specific @ -No Did you speak to anyone other than the patient for history (EMS, parent, family, police, friend...)? What history was obtained from this source @ - reports patient had 2 seizures today Did you review nursing and triage notes (agree or disagree)? Why? @ -I reviewed and agree with nursing and triage notes Were old charts reviewed (outside hosp., previous admission, EMS record, old EKG, old radiological studies, urgent care reports/EKG's, group home records)? Report findings @ -No old charts were reviewed Differential Diagnosis (chest pain, altered mental status, abdominal pain women, abdominal pain men, vaginal bleeding, musculoskeletal, weakness, fever, dyspnea, syncope, headache, dizziness, GI bleed, back pain, seizure, CVA, palpatations, mental health)? @ -Differential Seizure: Recurrent seizure disorder, febrile seizure, alcohol withdrawal, stimulants, meningitis, encephalitis, intercranial hemorrhage, intracranial tumor, stroke, eclampsia, thyrotoxicosis, hypocalcemia, hyponatremia, hypernatremia, hypomagnesemia, psychogenic, this is not meant to be an all-inclusive list. EKG interpreted by me (3pts min.). @ -My EKG interpretation: Ventricular rate 81, sinus rhythm,. 165, QRS 104, QTC 422. No MD prolongation, no QTC prolongation, no ST or T-wave changes noted. Overall, this EKG is unremarkable X-rays interpreted by me (1pt min.). @ -None done CT interpreted by me (1pt min.). @ -None done U/S interpreted by me (1pt. min.). @ -None done What testing was considered but not performed or refused? (CT, X-rays, U/S, labs)? Why? @ -None What meds were considered but not given or refused? Why? @ -None Did you discuss the management of the patient with other professionals (professionals i.e. , PA, CONSTRUCTION EQUIPMENT OVERHAULER, lab, RT, psych nurse, director of social work, sexual assault nurse, teacher, campus police officer, high risk case manager)? Give summary @ -Case discussed with Dr. Brian Esparza who requests the patient be transferred to [facility] if possible. [facility] is on diversion. Patient be admitted here. Clinical presentation labs discussed with Dr. Dyer for admmirian patel Was smoking cessation discussed for >3mins.? @ -No Was critical care preformed (if so, how long)? @ -No Were there social determinants of health that impacted care today? How? (Homelessness, low income, unemployed, alcoholism, drug addiction, transportation, low edu. Level, literacy, decrease access to med. care, correction, rehab)? @ -No Was there de-escalation of care discussed even if they declined (Discuss DNR or withdrawal of care, Hospice)? DNR status @ -No What co-morbidities impacted this encounter? (DM, HTN, Smoking, COPD, CAD, Cancer, CVA, ARF, Chemo, Hep., AIDS, mental health diagnosis, sleep apnea, morbid obesity)? @ -None Was patient admitted / discharged? Hospital course, mention meds given and route, prescriptions, significant lab abnormalities, going to OR and other pertinent info. @ -57-year-old male with past medical history of seizure presents to ER after having had 3 seizures in the last 12 hours. Vital signs stable. Patient was given Versed by prehospital providers. Observe the emergency department reevaluated found to be back to baseline. Patient states that he feels at baseline currently. Laboratory evaluation unremarkable. Patient be admitted for status epilepticus Undiagnosed new problem with uncertain prognosis? @ -No Drug Therapy requiring intensive monitoring for toxicity (Heparin, Nitro, Insulin, Cardizem)? @ -No Were any procedures done? @ -No Diagnosis/symptom? Acute, or Chronic, or Acute on Chronic? Uncomplicated (without systemic symptoms) or Complicated (systemic symptoms)? @ -1. Status epilepticus Side effects of treatment? @ -No Exacerbation, Progression, or Severe Exacerbation? @ -No Poses a threat to life or bodily function? How? (Chest pain, USA, IA, pneumonia, PE, COPD, DKA, ARF, appy, cholecystitis, CVA, Diverticulitis, Homicidal, Suicidal, threat to staff... and all critical care pts) @ -yes - Lab Data Result diagrams: 10/05/22 12:29 10/05/22 12:29 Lab Results 10/05/22 10/05/22 Range/Units 12:29 12:29 WBC 6.9 (3.8-10.6) k/uL RBC 4.70 (4.30-5.90) m/uL Hgb 14.4 (13.0-17.5) gm/dL Hct 43.6 (39.0-53.0) % MCV 92.7 (80.0-100.0) fL MCH 30.7 (25.0-35.0) pg MCHC 33.1 (31.0-37.0) g/dL RDW 13.4 (11.5-15.5) % Plt Count 228 (150-450) k/uL MPV 8.3 Neutrophils % 69 % Lymphocytes % 22 % Monocytes % 6 % Eosinophils % 1 % Basophils % 0 % Neutrophils # 4.8 (1.3-7.7) k/uL Lymphocytes # 1.5 (1.0-4.8) k/uL Monocytes # 0.4 (0-1.0) k/uL Eosinophils # 0.0 (0-0.7) k/uL Basophils # 0.0 (0-0.2) k/uL Sodium 133 L (137-145) mmol/L Potassium 4.4 (3.5-5.1) mmol/L Chloride 99 (98-107) mmol/L Carbon Dioxide 15 L (22-30) mmol/L Anion Gap 19 mmol/L BUN 8 L (9-20) mg/dL Creatinine 0.84 (0.66-1.25) mg/dL Est GFR (CKD-EPI)AfAm >90 (>60 ml/min/1.73 sqM) Est GFR (CKD-EPI)NonAf >90 (>60 ml/min/1.73 sqM) Glucose 103 H (74-99) mg/dL Calcium 8.4 (8.4-10.2) mg/dL Disposition Clinical Impression: Status epilepticus Disposition: ADMITTED IP TO THIS [facility] Condition: Fair Instructions (If sedation given, give patient instructions): Seizure/Epilepsy Discharge Instructions & Follow-Up Referrals: Aman Smyth MD [Primary Care Provider] - 1-2 days Decision Time: 15:30
[2022-10-05 12:46] LABS: Basophils % (A) 0 %; Eosinophils % (A) 1 %; HCT 43.6 % (39.0-53.0); HGB 14.4 gm/dL (13.0-17.5); Lymphocytes # (A) 1.5 k/uL (1.0-4.8); Lymphocytes % (A) 22 %; MCH 30.7 pg (25.0-35.0); MCHC 33.1 g/dL (31.0-37.0); MCV 92.7 fL (80.0-100.0); Mean Platelet Volume 8.3; Monocytes # (A) 0.4 k/uL (0-1.0); Monocytes % (A) 6 %; Neutrophils # (A) 4.8 k/uL (1.3-7.7); Neutrophils % (A) 69 %; Platelet Count 228 k/uL (150-450); RDW 13.4 % (11.5-15.5); WBC 6.9 k/uL (3.8-10.6)
[2022-10-05 14:12] LABS: African American GFR (CKD) >90 (>60 ml/min/1.73 sqM); Anion Gap 19 mmol/L; Blood Urea Nitrogen 8 mg/dL (9-20); Calcium 8.4 mg/dL (8.4-10.2); Carbon Dioxide 15 mmol/L (22-30); Chloride 99 mmol/L (98-107); Glucose 103 mg/dL (74-99); Non-African American GFR(CKD) >90 (>60 ml/min/1.73 sqM); Sodium 133 mmol/L (137-145)
[2022-10-05 14:13] LABS: Potassium 4.4 mmol/L (3.5-5.1)
[2022-10-05] MEDS ORDERED: NALOXONE 0.4 MG/ML 1 ML VIAL IV PRN (16:23)
[2022-10-05] MEDS ORDERED: LORazepam 2 MG/ML INJ IV PRN ×2 (16:25→17:06)
[2022-10-05] MEDS ORDERED: NON FORMULARY DRUG (Fluorouracil [Efudex] 40 GM Cream..G.) TOPICAL PRN (16:25)
[2022-10-05] MEDS: SODIUM CHLORIDE 0.9% 1,000 ML IV SCH ×2 (16:34→18:53)
--- NOTE | 2022-10-05 17:33 | P.CNNES ---
History of Present Illness Consult date: 10/05/22 Requesting physician: Ceferino Keenan Reason for Consult: status epilepticus History of Present Illness: This is a 57-year-old gentleman with history of medical intractable epilepsy and is on 4 antiepileptic drug, VNS stimulator as well as RNS stimulator who presented emergency department because of breakthrough seizure. Some of the history is obtained from medical record as well as the ED attending. It seems that the patient had 3 seizure activity and he stated that the his first seizure was early in the morning today and the second was around 11:30am and the third was just right after that and a seizure lasted for about 5 minutes. He describes the seizure as he was told he was shaken by his but he does not recall the episode. He denies any tongue bite, urinary or bowel incontinence. Patient is on Keppra 1500 mg 1 tablet twice a day, Lamictal 50 mg 1 tablet twice a day, Depakote extended release 1000 mg 1 tablet twice a day and Tegretol 100 mg at 8:00 in the morning, 200mg at noon and 200mg at 8pm. He states she was compliant taking medication. He thinks he is having a seizure once every 4-8 weeks. Patient follows up with Dr. Grigsby for his epilepsy. Of note patient is known to our neurology team and was last seen in our hospital in the November 2021. Since last visit he had a RNS placed in March 2022 at [facility] according to the patient. She does not feels there is reduction in his seizures since introduction of RNS. Review of Systems Review of system: The 12 point system was reviewed and apparent positive and negative per HPI. Past Medical History Past Medical History: CVA/TIA, Diabetes Mellitus, Hyperlipidemia, Hypertension, Memory Impairment, Myocardial Infarction (SD), Seizure Disorder, Sleep Apnea/CPAP/BIPAP Additional Past Medical History / Comment(s): TIA-some slight residual left sided weakness-resolved, "borderline diabetes"-diet control, no CPAP, has vagus nerve stimulator, hx migraines, epilepsy last seizure 1 month ago, Last Myocardial Infarction Date:: 2015 History of Any Multi-Drug Resistant Organisms: None Reported Past Surgical History: Adenoidectomy, Ear Surgery, Heart Catheterization, Tonsillectomy Additional Past Surgical History / Comment(s): TUBES IN EARS, VAGUS NERVE STIMULATOR IMPLANT Past Anesthesia/Blood Transfusion Reactions: Previous Problems w/ Anesthesia Additional Past Anesthesia/Blood Transfusion Reaction / Comment(s): STATES A LONG TIME TO WAKE UP AFTER ANESTHESIA. Past Psychological History: No Psychological Hx Reported Smoking Status: Never smoker Past Alcohol Use History: None Reported Past Drug Use History: None Reported - Past Family History Brother(s) Family Medical History: Cancer Additional Family Medical History / Comment(s): PROSTATE CANCER WITH METS. Medications and Allergies Home Medications Medication Instructions Recorded Confirmed Type Clopidogrel [Plavix] 75 mg PO DAILY@0800 03/16/17 10/05/22 History Divalproex ER [Depakote ER] 1,000 mg PO BID@0800,199905/26/18 10/05/22 History Multivitamins, Thera [Multivitamin 1 tab PO DAILY@139905/26/18 10/05/22 History (formulary)] Niacin (Inositol Niacinate) 500 mg PO DAILY@1400 05/26/18 10/05/22 History [Niacin 500 mg Capsule] Atorvastatin Calcium [Lipitor] 80 mg PO 10/30/19 10/05/22 History Folic Acid 0.8 mg PO DAILY@139910/30/19 10/05/22 History amLODIPine [Norvasc] 2.5 mg PO HS 10/30/19 10/05/22 History lamoTRIgine [LaMICtal] 50 mg PO BID@0800,199910/30/19 10/05/22 History Cholecalciferol [Vitamin D3 (125 125 mcg PO DAILY@1400 07/12/21 10/05/22 History Mcg = 5000 Iu)] Ezetimibe [Zetia] 10 mg PO 07/12/21 10/05/22 History Thiamine [Vitamin B-1] 100 mg PO DAILY@1400 07/12/21 10/05/22 History carBAMazepine 100 mg PO DAILY@0800 07/12/21 10/05/22 History carBAMazepine 200 mg PO BID@1400,199907/12/21 10/05/22 History rOPINIRole HCL [Requip] 1 mg PO BID@0800,199909/23/21 10/05/22 History fluorouraciL [Efudex] 1 applic TOPICAL BID PRN 08/12/22 10/05/22 History levETIRAcetam [Keppra] 1,000 mg PO BID@0800,199908/12/22 10/05/22 History levETIRAcetam [Keppra] 500 mg PO BID@0800,199908/12/22 10/05/22 History Allergies Allergy/AdvReac Type Severity Reaction Status Date / Time No Known Allergies Allergy Verified 10/05/22 13:44 Physical Examination - Vital Signs Vital Signs: Vital Signs Temp Pulse Resp BP Pulse Ox 10/05/22 15:12 80 16 128/75 96 10/05/22 14:30 78 16 127/68 98 10/05/22 14:00 89 17 125/65 98 10/05/22 13:30 66 17 99/50 98 10/05/22 13:00 69 22 100/61 100 10/05/22 12:57 71 18 100/61 100 10/05/22 12:30 71 20 84/49 92 L 10/05/22 12:15 97.4 F L 84 14 84/49 93 L 10/05/22 11:34 91 16 105/62 90 L Intake and Output 10/05/22 10/05/22 10/05/22 06:59 14:59 22:59 Other: Weight 103.419 kg GENERAL: The patient is lying in bed and is not in acute distress. NEUROLOGICAL: Higher mental function: The patient is awake, alert, oriented to self, place and time. Patient is following commands. No aphasia and no neglect. Cranial nerves: The pupils are round, equal and reactive to light and accommodation. Visual kaur are full to confrontation throughout. Extraocular movement is intact no nystagmus is noted. Facial sensation is normal to touch throughout. Has scar on left side of foreahead and nose region. The facial strength is normal throughout. Hearing is normal bilaterally to hand rub. Tongue is midline and moved [id number] without any difficulty. No dysarthria is noted. Shoulder shrug is normal bilaterally. Motor: The strength is 5 over 5 throughout. Normal tone and bulk. Cerebellum: Normal finger to nose bilaterally. Sensation: Sensation is normal to touch throughout. Reflexes (right/left): 1+ Plantars are mute bilaterally. Results - Laboratory Findings CBC and BMP: 10/05/22 12:29 10/05/22 12:29 Abnormal Lab Findings: Abnormal Labs 10/05/22 12:29 Sodium 133 L Carbon Dioxide 15 L BUN 8 L Glucose 103 H Assessment and Plan Assessment: Status epilepticus--patient had 3 seizures today (he has medical intractable epilepsy, VNS and RNS. Is on 4 antiepileptics and is compliant taking medication) History of medical intractable epilepsy, VNS and RNS. Is on 4 antiepileptic History of [place] Palsy Diabetes Sleep apnea Hypertension Obesity Plan: Patient is on Keppra 1500 mg 1 tablet twice a day, Lamictal 50 mg 1 tablet twice a day, Depakote extended release 1000 mg 1 tablet twice a day and Tegretol 100 mg at 8:00 in the morning, 200mg at noon and 200mg at 8pm. I spoke with Dr. Grigsby (his epileptologist) and he stated to go up on Lamictal from 50mg 1 tab bid to titration of 75mg bid. So will do 50mg qam and 75mg qhs for one week then following week 75mg bid. Then Dr. Grigsby wants him to call the office after being on 75mg bid. Dr. Grigsby stated, patient has focal seizures that frequent event with his multiple medications, VNS and RNS. Attempted to transfer patient to [facility] since had 3 seizures/clinical status and is known to his epileptologist (out of [facility]) but ED team were notified not accepting patient. Since patient is clinically doing better will keep him in our facility. Seizure precaution and pads. Ordered levels of his antiepileptics Placed on Ativan PRN for seizures. Will defer the rest of medical management to primary team. Upon discharge recommend the patient to follow-up with his neurologist within 2 weeks. The plan is discussed with patient and ED team. Thank your for the consultation. Time with Patient: Greater than 30
[2022-10-05] MEDS ORDERED: ONDANSETRON 4 MG/2 ML VIAL IVP PRN (17:57)
[2022-10-05] MEDS ORDERED: ACETAMINOPHEN TAB 325 MG TAB PO PRN (17:57)
[2022-10-05] MEDS ORDERED: bisacodyL 5 MG TABLET.DR PO PRN (17:57)
[2022-10-05] MEDS ORDERED: MELATONIN 3 MG TABLET PO PRN (17:57)
[2022-10-05] MEDS ORDERED: HYDROcodone/APAP 5-325MG 1 EACH TAB PO PRN (17:57)
--- NOTE | 2022-10-05 18:00 | P.PN ---
Subjective Progress Note Date: 10/05/22 Patient is a 57-year-old male with a known history of seizure disorder currently treated with 4 medications Keppra, Lamictal, Depakote, and carbamazepine as well as a vagus nerve stimulator who presented to the emergency department with 4 seizures in less than 24 hours. In the emergency room he underwent an extensive evaluation. On arrival he was mildly hypoxic with an O2 sat of 90% on 2 L, the remainder of his vital signs were within normal limits. Laboratory analysis was remarkable for sodium 133, carbon dioxide of 15, anion gap of 19. EKG demonstrated normal sinus rhythm. Intially transfer was attmepted to [facility] to see his architect intern, however they were not excepting transfers and neurology felt comfortable managing the patient here. Patient seen and examined at bedside. He reports that last evening he had an upset stomach and was feeling nauseated. He has this from time to time. He took some Pepto-Bismol about 3 AM and that seemed to rubens. He did a seizure medications at 8:00. Since that time he has had 3-4 seizures. He has not used his vagus nerve stimulator. He did receive 10 mg of Versed via EMS which stopped the second seizure. He reports he has not missed any doses of his medications. He follows with Dr. Chapman at [facility]. He has not had any recent changes in medications. His last seizure prior to this was approximately one month ago. He did have a deep brain stimulator implanted in March 2022 which decreased his seizures somewhat, his vagus nerve stimulator has been implanted since 2017. He denies any recent cough, cold, fever, flu, diarrhea, dysuria. Vital signs reviewed General: nontoxic, no distress, appears at stated age Derm: warm, dry Eyes: EOMI, no lid lag, anicteric sclera, pupils equal round reactive to light ENT: Nose and ears atraumatic, no thrush, no pharyngeal erythema Cardiovascular: S1S2 reg, no murmur, positive posterior tibial pulse bilateral, no edema, capillary refill less than 2 seconds Lungs: clear to auscultation bilateral, no rhonchi, no rales, no wheeze, no accessory muscle use Abdominal: soft, nontender to palpation, no guarding, no appreciable organomegaly, normal bowel sounds Ext: no gross muscle atrophy, muscle strength 5 out of 5 in all 4 extremities, no contractures Neuro: CN II-XII grossly intact, light touch intact all 4 extremities, finger to nose within normal limits, Psych: Alert, oriented, appropriate affect Assessment/Plan: Status epilepticus in a known seizure patient -Case discussed extensively with Dr. Esparza. We'll continue to monitor patient closely. If he begins having seizures consider transfer to a center with continuous EEG monitoring or dedicated epilepsy unit. He'll get in contact with Dr. Grigsby - miladysain EEG - check Keppra, lamicital, depakote, and tegretol levels - seizure precautions - Patient has vegus nerve stimulator to abort seizures Anion gap metabolic acidosis, suspect due to lactic acid - NS at 120 cc/hr - check lactic acid and CPK Diabetes mellitus type 2 -Not currently on any medications -Sliding-scale insulin -Follow blood sugars Hypertension, controlled -Norvasc -Follow blood pressures Chronic: Dyslipidemia Prior myocardial infarction Sleep apnea Migraine headaches History of CVA Imaging: as per HPI Data Review: as per HPI The patient is admitted with an anticipated greater than 2 midnight stay for evaluation of status epilepticus . Surrogate decision-maker: spouse CODE STATUS:full DVT prophylaxis: SCDS Anticipated discharge date: Pending clinical course Anticipated discharge place: Pending clinical course This dictation was prepared using [employer] voice recognition software. Though every attempt is made to correct errors during dictation some may still exist. Objective - Vital Signs Vital signs: Vital Signs Temp 97.4 F L 10/05/22 12:15 Pulse 80 10/05/22 15:12 Resp 16 10/05/22 15:12 BP 128/75 10/05/22 15:12 Pulse Ox 96 10/05/22 15:12 FiO2 Intake & Output 10/04/22 10/05/22 10/05/22 18:59 06:59 18:59 Weight 103.419 kg - Labs CBC & Chem 7: 10/05/22 12:29 10/05/22 12:29 Labs: Abnormal Lab Results - Last 24 Hours (Table) 10/05/22 Range/Units 12:29 Sodium 133 L (137-145) mmol/L Carbon Dioxide 15 L (22-30) mmol/L BUN 8 L (9-20) mg/dL Glucose 103 H (74-99) mg/dL
[2022-10-05 18:15] LABS: Carbamazepine (Tegretol) 10.7 ug/mL
[2022-10-05 18:17] LABS: Valproic Acid (Depakene) 68.5 ug/mL
[2022-10-05] MEDS: carBAMazepine 200 MG TAB PO SCH (19:36)
[2022-10-05] MEDS: DIVALPROEX ER 500 MG TAB.ER.24H PO SCH (19:36)
[2022-10-05] MEDS: lamoTRIgine 25 MG TAB PO SCH ×2 (19:37→19:38)
[2022-10-05] MEDS ORDERED: levETIRAcetam 500 MG TAB PO SCH (20:00)
[2022-10-05] MEDS: ATORVASTATIN 80 MG TAB PO SCH (20:22)
[2022-10-05] MEDS: EZETIMIBE 10 MG TAB PO SCH (20:23)
[2022-10-05] MEDS: amLODIPine 2.5 MG TAB PO SCH (20:23)
[2022-10-06] MEDS: SODIUM CHLORIDE 0.9% 1,000 ML IV SCH ×5 (01:22→21:37)
[2022-10-06 06:21] LABS: African American GFR (CKD) >90 (>60 ml/min/1.73 sqM); Anion Gap 10 mmol/L; Blood Urea Nitrogen 10 mg/dL (9-20); Calcium 8.5 mg/dL (8.4-10.2); Carbon Dioxide 24 mmol/L (22-30); Chloride 100 mmol/L (98-107); Glucose 106 mg/dL (74-99); Non-African American GFR(CKD) >90 (>60 ml/min/1.73 sqM); Potassium 4.6 mmol/L (3.5-5.1); Sodium 134 mmol/L (137-145)
[2022-10-06 06:32] LABS: HCT 40.8 % (39.0-53.0); HGB 13.7 gm/dL (13.0-17.5); MCH 31.2 pg (25.0-35.0); MCHC 33.7 g/dL (31.0-37.0); MCV 92.8 fL (80.0-100.0); Mean Platelet Volume 8.1; Platelet Count 219 k/uL (150-450); RDW 13.6 % (11.5-15.5); WBC 9.4 k/uL (3.8-10.6)
[2022-10-06] MEDS: DIVALPROEX ER 500 MG TAB.ER.24H PO SCH ×2 (08:12→20:05)
[2022-10-06] MEDS: CLOPIDOGREL 75 MG TAB PO SCH (08:12)
[2022-10-06] MEDS: carBAMazepine 200 MG TAB PO SCH ×3 (08:12→20:05)
[2022-10-06] MEDS: lamoTRIgine 25 MG TAB PO SCH ×3 (08:13→20:05)
--- NOTE | 2022-10-06 11:56 | P.PN ---
Subjective Progress Note Date: 10/06/22 Hospital Course: 57-year-old male with a known history of seizure disorder currently treated with 4 medications Keppra, Lamictal, Depakote, and carbamazepine as well as a vagus nerve stimulator who presented to the emergency department with 4 seizures in less than 24 hours. On arrival he was mildly hypoxic with an O2 sat of 90% on 2 L, the remainder of his vital signs were within normal limits. Laboratory analysis was remarkable for sodium 133, carbon dioxide of 15, anion gap of 19. EKG demonstrated normal sinus rhythm. Intially transfer was attmepted to [facility] to see his neurologist, however they were not excepting transfers and neurology felt comfortable managing the patient here. Subjective: Patient seen and examined at bedside. No acute events overnight. No new seizure-like activity. Pertinent positives and negatives as discussed above, a complete review of systems was performed and all other systems are negative. Vitals Signs Reviewed. General: nontoxic, no distress, appears at stated age Derm: warm, dry Eyes: EOMI, no lid lag, anicteric sclera, pupils equal round reactive to light ENT: Nose and ears atraumatic, no thrush, no pharyngeal erythema Cardiovascular: S1S2 reg, no murmur, positive posterior tibial pulse bilateral, no edema, capillary refill less than 2 seconds Lungs: clear to auscultation bilateral, no rhonchi, no rales, no wheeze, no accessory muscle use Abdominal: soft, nontender to palpation, no guarding, no appreciable o rganomegaly, normal bowel sounds Ext: no gross muscle atrophy, muscle strength 5 out of 5 in all 4 extremities, no contractures Neuro: CN II-XII grossly intact, light touch intact all 4 extremities, finger to nose within normal limits, Psych: Alert, oriented, appropriate affect Data Reviewed Today: Pertinent Labs: WBC 9.4, hemoglobin 13.7, sodium 134, potassium 4.6, creatinine 0.86, lactate 1.7 Imaging: No new imaging today Assessment and Plan: Status epilepticus in a known seizure patient - ontain EEG - check Keppra level -Valproic acid and carbamazepine levels are therapeutic - seizure precautions - Patient has vegus nerve stimulator to abort seizures Anion gap metabolic acidosis, suspect due to lactic acid, resolved - NS at 120 cc/hr Diabetes mellitus type 2 -Not currently on any medications -A1c ordered Hypertension, controlled -Norvasc -Follow blood pressures Chronic: Dyslipidemia Prior myocardial infarction Sleep apnea Migraine headaches History of CVA DVT ppx: Lovenox Code status: Full code Anticipated discharge place: Pending Clinical course Anticipated discharge time: Pending Clinical course Objective - Vital Signs Vital signs: Vital Signs Temp 97.7 F 10/06/22 08:00 Pulse 86 10/06/22 08:00 Resp 22 10/06/22 08:00 BP 152/89 10/06/22 08:00 Pulse Ox 97 10/06/22 08:00 FiO2 Intake & Output 10/05/22 10/06/22 10/06/22 18:59 06:59 18:59 Intake Total 360 Balance 360 Weight 103.419 kg Intake: Oral 360 - Labs CBC & Chem 7: 10/06/22 05:56 10/06/22 05:56 Labs: Abnormal Lab Results - Last 24 Hours (Table) 10/05/22 10/05/22 10/05/22 Range/Units 12:29 17:58 22:36 Sodium 133 L (137-145) mmol/L Carbon Dioxide 15 L (22-30) mmol/L BUN 8 L (9-20) mg/dL Glucose 103 H (74-99) mg/dL Plasma Lactic Acid Amrit 2.1 H* 2.1 H* (0.7-2.0) mmol/L 10/06/22 Range/Units 05:56 Sodium 134 L (137-145) mmol/L Carbon Dioxide (22-30) mmol/L BUN (9-20) mg/dL Glucose 106 H (74-99) mg/dL Plasma Lactic Acid Amrit (0.7-2.0) mmol/L
--- NOTE | 2022-10-06 12:31 | P.DS ---
Providers Date of admission: 10/05/22 16:30 Expected date of discharge: 10/06/22 Attending physician: Tisha Dyer MD Consults: 10/05/22 16:23 Consult Physician Routine Consulting Provider: Brian Esparza Consult Reason/Comments: status epilepticus Do you want consulting provider notified?: Already Contacted Primary care physician: Aman Malin [facility] Course: Discharge Diagnosis: Breakthrough seizures History of epilepsy Anion gap metabolic acidosis, suspect due to lactic acid Diabetes mellitus type 2 Hypertension, controlled Dyslipidemia Prior myocardial infarction Sleep apnea Migraine headaches History of CVA Hospital Course: 57-year-old male with a known history of seizure disorder currently treated with 4 medications Keppra, Lamictal, Depakote, and carbamazepine as well as a vagus nerve stimulator who presented to the emergency department with 4 seizures in less than 24 hours. On arrival he was mildly hypoxic with an O2 sat of 90% on 2 L, the remainder of his vital signs were within normal limits. Laboratory analysis was remarkable for sodium 133, carbon dioxide of 15, anion gap of 19. EKG demonstrated normal sinus rhythm. Patient observed more than 24 hours, no seizure-like activity. Neurology was consulted. Lamictal increased. Patient to follow-up outpatient neurology. Rest of the home medications continued. Patient seen and examined at bedside. Vital signs reviewed and stable. General: nontoxic, no distress, appears at stated age Derm: warm, dry Head: atraumatic, normocephalic, symmetric Eyes: EOMI, no lid lag, anicteric sclera Mouth: no lip lesion, mucus membranes moist Cardiovascular: S1S2 reg, no murmur Lungs: CTA bilateral, no rhonchi, no rales , no accessory muscle use Abdominal: soft, nontender to palpation, no guarding, no appreciable organomegaly Ext: no gross muscle atrophy, no edema, no contractures Neuro: CN II-XI grossly intact, no focal neuro deficits Psych: Alert, oriented, appropriate affect A total of 33 minutes of time were spent preparing this complex discharge summary. Patient was discharged on 10/06/22 at 12:28. Patient Condition at Discharge: Stable Plan - Discharge Summary New Discharge Prescriptions: New lamoTRIgine [LaMICtal] 75 mg PO BID@0800,1999 #60 tab Continue Clopidogrel [Plavix] 75 mg PO DAILY@0800 Divalproex ER [Depakote ER] 1,000 mg PO BID@08,1999 Niacin (Inositol Niacinate) [Niacin 500 mg Capsule] 500 mg PO DAILY@1400 Multivitamins, Thera [Multivitamin (formulary)] 1 tab PO DAILY@1400 amLODIPine [Norvasc] 2.5 mg PO HS Atorvastatin Calcium [Lipitor] 80 mg PO HS Folic Acid 0.8 mg PO DAILY@1400 Thiamine [Vitamin B-1] 100 mg PO DAILY@1400 Cholecalciferol [Vitamin D3 (125 Mcg = 5000 Iu)] 125 mcg PO DAILY@1400 levETIRAcetam [Keppra] 1,000 mg PO BID@08,1999 levETIRAcetam [Keppra] 500 mg PO BID@799,1999 Ezetimibe [Zetia] 10 mg PO HS carBAMazepine 200 mg PO BID@1399,1999 carBAMazepine 100 mg PO DAILY@0800 rOPINIRole HCL [Requip] 1 mg PO BID@799,1999 fluorouraciL [Efudex] 1 applic TOPICAL BID PRN PRN Reason: lesions Discontinued lamoTRIgine [LaMICtal] 50 mg PO BID@799,1999 Discharge Medication List Clopidogrel [Plavix] 75 mg PO DAILY@0800 03/16/17 [History] Divalproex ER [Depakote ER] 1,000 mg PO BID@08,199905/26/18 [History] Multivitamins, Thera [Multivitamin (formulary)] 1 tab PO DAILY@1400 05/26/18 [History] Niacin (Inositol Niacinate) [Niacin 500 mg Capsule] 500 mg PO DAILY@1400 05/26/18 [History] Atorvastatin Calcium [Lipitor] 80 mg PO HS 10/30/19 [History] Folic Acid 0.8 mg PO DAILY@1400 10/30/19 [History] amLODIPine [Norvasc] 2.5 mg PO HS 10/30/19 [History] Cholecalciferol [Vitamin D3 (125 Mcg = 5000 Iu)] 125 mcg PO DAILY@1400 07/12/21 [History] Ezetimibe [Zetia] 10 mg PO HS 07/12/21 [History] Thiamine [Vitamin B-1] 100 mg PO DAILY@1400 07/12/21 [History] carBAMazepine 100 mg PO DAILY@0800 07/12/21 [History] carBAMazepine 200 mg PO BID@1400,199907/12/21 [History] rOPINIRole HCL [Requip] 1 mg PO BID@0800,199909/23/21 [History] fluorouraciL [Efudex] 1 applic TOPICAL BID PRN 08/12/22 [History] levETIRAcetam [Keppra] 1,000 mg PO BID@0800,199908/12/22 [History] levETIRAcetam [Keppra] 500 mg PO BID@0800,199908/12/22 [History] lamoTRIgine [LaMICtal] 75 mg PO BID@08,1999 #60 tab 10/06/22 [Rx] Follow up Appointment(s)/Referral(s): Aman Smyth MD [Primary Care Provider] - 1-2 days Patient Instructions/Handouts: Seizure/Epilepsy Discharge Instructions & Follow-Up Activity/Diet/Wound Care/Special Instructions: Follow up with your neurologist as soon as possible. Discharge Disposition: HOME SELF-CARE
[2022-10-06] MEDS: NIACIN TR 500 MG CAPLET PO SCH ×2 (13:07→13:12)
[2022-10-06] MEDS ORDERED: FOLIC ACID 1 MG TAB PO SCH (14:00)
[2022-10-06] MEDS ORDERED: THIAMINE 100 MG TAB PO SCH (14:00)
[2022-10-06] MEDS ORDERED: MULTIVITAMINS, THERA 1 EACH TAB PO SCH (14:00)
[2022-10-06] MEDS ORDERED: CHOLECALCIFEROL 125 MCG (5000 IU) TABLET PO SCH (14:00)
--- NOTE | 2022-10-06 14:26 | P.PN ---
Subjective Progress Note Date: 10/06/22 The patient seen at bedside and he feels he is doing well. According the patient the nurse as well as the primary team no further seizures since admission. Patient does not recall having any seizures that he is aware of. Objective - Vital Signs Vital signs: Vital Signs Temp 98.4 F 10/06/22 12:54 Pulse 90 10/06/22 12:54 Resp 24 10/06/22 12:54 BP 151/94 10/06/22 12:59 Pulse Ox 96 10/06/22 12:54 FiO2 Intake & Output 10/05/22 10/06/22 10/06/22 18:59 06:59 18:59 Intake Total 900 Balance 900 Weight 103.419 kg Intake: Oral 900 - Exam GENERAL: The patient is lying in bed and is not in acute distress. NEUROLOGICAL: Higher mental function: The patient is awake, alert, oriented to self, place and time. Patient is following commands. No aphasia and no neglect. Cranial nerves: The pupils are round, equal and reactive to light and acc ommodation. Visual kaur are full to confrontation throughout. Extraocular movement is intact no nystagmus is noted. Facial sensation is normal to touch throughout. Has scar on left side of foreahead and nose region. The facial strength is normal throughout. Hearing is normal bilaterally to hand rub. Tongue is midline and moved [id number] without any difficulty. No dysarthria is noted. Shoulder shrug is normal bilaterally. Motor: The strength is 5 over 5 throughout. Normal tone and bulk. Cerebellum: Normal finger to nose bilaterally. Sensation: Sensation is normal to touch throughout. Reflexes (right/left): 1+ Plantars are mute bilaterally. - Labs CBC & Chem 7: 10/06/22 05:56 10/06/22 05:56 Labs: Abnormal Lab Results - Last 24 Hours (Table) 10/05/22 10/05/22 10/06/22 Range/Units 17:58 22:36 05:56 Sodium 134 L (137-145) mmol/L Glucose 106 H (74-99) mg/dL Plasma Lactic Acid Amrit 2.1 H* 2.1 H* (0.7-2.0) mmol/L Assessment and Plan Assessment: Status epilepticus--patient had 3 seizures on 10/05/2022 (prior to admission to our facility. He has medical intractable epilepsy, VNS and RNS. Is on 4 antiepileptics and is compliant taking medication)--no further seizures for past 24 hours. History of medical intractable epilepsy, VNS and RNS. Is on 4 antiepileptic History of [place] Palsy Diabetes Sleep apnea Hypertension Obesity Plan: Patient is on Keppra 1500 mg 1 tablet twice a day, Lamictal 50 mg 1 tablet twice a day, Depakote extended release 1000 mg 1 tablet twice a day and Tegretol 100 mg at 8:00 in the morning, 200mg at noon and 200mg at 8pm. I spoke with Dr. Grigsby (his epileptologist) on 10/05 and he stated to go up on Lamictal from 50mg 1 tab bid to titration of 75mg bid. So will do 50mg qam and 75mg qhs for one week then following week 75mg bid. Then Dr. Grigsby wants him to call the office after being on 75mg bid. Dr. Grigsby stated, patient has focal seizures that frequent event with his multiple medications, VNS and RNS. Attempted to transfer patient to [facility] since had 3 seizures/clinical status and is known to his epileptologist (out of [facility]) but ED team were notified not accepting patient. Since patient is clinically doing better will keep him in our facility. Seizure precaution and pads. Tegretol level is 10.7 (normal level 4-12), valproic acid is 68.5 (normal is 50- 120). Pending rest of antiepileptic drug level. No need for EEG since known to have history of seizures and clinically doing better. On Ativan PRN for seizures. Will defer the rest of medical management to primary team. Upon discharge recommend the patient to follow-up with his neurologist within 2 weeks. The plan is discussed with patient and primary attending. Since he did not have any further seizures for past 24 hours, he is clear for discharge. Time with Patient: Less than 30
--- NOTE | 2022-10-06 14:32 | CT ---
EXAMINATION TYPE: CT brain wo con DATE OF EXAM: 10/06/2022 COMPARISON: 08/12/2022 INDICATION: Right sided weakness DLP: 1173.4 mGycm, Automated exposure control for dose reduction was used. CONTRAST: None CT of the brain is performed utilizing 3 mm thick sections through the posterior fossa and 3 mm thick sections through the remaining calvarium. Study is performed within 24 hours of arrival to the hosp ital. No abnormal hyperdensity is present to suggest an acute intracranial hemorrhage. No mass lesion is evident. No acute infarcts are evident. There is a right-sided shunt with the tip in the right lateral ventric le. Ventricles appear appropriate for the patient's age. No temporal horn dilatation is appreciated. Beam hardening artifact from patient's shunt catheters are evident. Ventricles and sulci are mildly prominent for the patient age. Paranasal sinuses and mastoid air cells within the [id number] are clear. IMPRESSIONS: 1. Shunt catheter present and unchanged. No hydrocephalus is evident. 2. No acute intracranial process radiographically apparent. Follow-up as clinically indicated
[2022-10-06 19:58] VITALS: TEMP 98
[2022-10-06] MEDS: EZETIMIBE 10 MG TAB PO SCH (20:05)
[2022-10-06] MEDS: amLODIPine 2.5 MG TAB PO SCH (20:05)
[2022-10-06] MEDS: ATORVASTATIN 80 MG TAB PO SCH (20:05)
[2022-10-07 04:13] VITALS: PULSE 82
[2022-10-07 08:08] VITALS: BP 129/86; RESP 16
[2022-10-07] MEDS ORDERED: ENOXAPARIN 40 MG/0.4 ML SYRINGE SQ SCH (09:00)
[2022-10-07] MEDS: lamoTRIgine 25 MG TAB PO SCH (09:04)
[2022-10-07] MEDS: CLOPIDOGREL 75 MG TAB PO SCH (09:04)
[2022-10-07] MEDS: DIVALPROEX ER 500 MG TAB.ER.24H PO SCH (09:04)
[2022-10-07] MEDS: carBAMazepine 200 MG TAB PO SCH (09:05)
--- NOTE | 2022-10-07 12:01 | P.DS ---
Providers Date of admission: 10/05/22 16:30 Expected date of discharge: 10/07/22 Attending physician: Tisha Dyer MD Consults: 10/05/22 16:23 Consult Physician Routine Consulting Provider: Brian Esparza Consult Reason/Comments: status epilepticus Do you want consulting provider notified?: Already Contacted Primary care physician: Aman Malin [facility] Hospital Course: Discharge Diagnosis: Breakthrough seizures History of epilepsy Anion gap metabolic acidosis, suspect due to lactic acid Diabetes mellitus type 2 Hypertension, controlled Dyslipidemia Prior myocardial infarction Sleep apnea Migraine headaches History of CVA Hospital Course: 57-year-old male with a known history of seizure disorder currently treated with 4 medications Keppra, Lamictal, Depakote, and carbamazepine as well as a vagus nerve stimulator who presented to the emergency department with 4 seizures in less than 24 hours. On arrival he was mildly hypoxic with an O2 sat of 90% on 2 L, the remainder of his vital signs were within normal limits. Laboratory analysis was remarkable for sodium 133, carbon dioxide of 15, anion gap of 19. EKG demonstrated normal sinus rhythm. Patient observed more than 24 hours, no seizure-like activity. Neurology was consulted. Lamictal increased. Patient to follow-up outpatient neurology. Rest of the home medications continued. Patient was being discharged on 10/06, however had some new right-sided weakness. CT head did not show any acute process. Weakness has since resolved. Patient being discharged today. Patient seen and examined at bedside. Vital signs reviewed and stable. General: nontoxic, no distress, appears at stated age Derm: warm, dry Head: atraumatic, normocephalic, symmetric Eyes: EOMI, no lid lag, anicteric sclera Mouth: no lip lesion, mucus membranes moist Cardiovascular: S1S2 reg, no murmur Lungs: CTA bilateral, no rhonchi, no rales , no accessory muscle use Abdominal: soft, nontender to palpation, no guarding, no appreciable organomegaly Ext: no gross muscle atrophy, no edema, no contractures Neuro: CN II-XI grossly intact, no focal neuro deficits Psych: Alert, oriented, appropriate affect A total of 33 minutes of time were spent preparing this complex discharge summary. Patient was discharged on 10/07/22 at 1054. Patient Condition at Discharge: Stable Plan - Discharge Summary Discharge Rx Participant: No New Discharge Prescriptions: New lamoTRIgine [LaMICtal] 75 mg PO BID@799,1999 #60 tab Continue Clopidogrel [Plavix] 75 mg PO DAILY@0800 Divalproex ER [Depakote ER] 1,000 mg PO BID@799,1999 Niacin (Inositol Niacinate) [Niacin 500 mg Capsule] 500 mg PO DAILY@1400 Multivitamins, Thera [Multivitamin (formulary)] 1 tab PO DAILY@1400 amLODIPine [Norvasc] 2.5 mg PO HS Atorvastatin Calcium [Lipitor] 80 mg PO HS Folic Acid 0.8 mg PO DAILY@1400 Thiamine [Vitamin B-1] 100 mg PO DAILY@1400 Cholecalciferol [Vitamin D3 (125 Mcg = 5000 Iu)] 125 mcg PO DAILY@1400 levETIRAcetam [Keppra] 1,000 mg PO BID@799,1999 levETIRAcetam [Keppra] 500 mg PO BID@799,1999 Ezetimibe [Zetia] 10 mg PO HS carBAMazepine 200 mg PO BID@1400,1999 carBAMazepine 100 mg PO DAILY@0800 rOPINIRole HCL [Requip] 1 mg PO BID@799,1999 fluorouraciL [Efudex] 1 applic TOPICAL BID PRN PRN Reason: lesions Discontinued lamoTRIgine [LaMICtal] 50 mg PO BID@799,1999 Discharge Medication List Clopidogrel [Plavix] 75 mg PO DAILY@0800 03/16/17 [History] Divalproex ER [Depakote ER] 1,000 mg PO BID@0800,199905/26/18 [History] Multivitamins, Thera [Multivitamin (formulary)] 1 tab PO DAILY@1400 05/26/18 [History] Niacin (Inositol Niacinate) [Niacin 500 mg Capsule] 500 mg PO DAILY@1400 05/26/18 [History] Atorvastatin Calcium [Lipitor] 80 mg PO HS 10/30/19 [History] Folic Acid 0.8 mg PO DAILY@1400 10/30/19 [History] amLODIPine [Norvasc] 2.5 mg PO HS 10/30/19 [History] Cholecalciferol [Vitamin D3 (125 Mcg = 5000 Iu)] 125 mcg PO DAILY@1400 07/12/21 [History] Ezetimibe [Zetia] 10 mg PO HS 07/12/21 [History] Thiamine [Vitamin B-1] 100 mg PO DAILY@1400 07/12/21 [History] carBAMazepine 100 mg PO DAILY@0800 07/12/21 [History] carBAMazepine 200 mg PO BID@1399,199907/12/21 [History] rOPINIRole HCL [Requip] 1 mg PO BID@0800,199909/23/21 [History] fluorouraciL [Efudex] 1 applic TOPICAL BID PRN 08/12/22 [History] levETIRAcetam [Keppra] 1,000 mg PO BID@0800,199908/12/22 [History] levETIRAcetam [Keppra] 500 mg PO BID@0800,199908/12/22 [History] lamoTRIgine [LaMICtal] 75 mg PO BID@799,1999 #60 tab 10/06/22 [Rx] Follow up Appointment(s)/Referral(s): Aman Smyth MD [Primary Care Provider] - 10/09/22 10:15 am (will see BO Whipple) Patient Instructions/Handouts: Seizure/Epilepsy Discharge Instructions & Follow-Up Activity/Diet/Wound Care/Special Instructions: Follow up with your neurologist as soon as possible. Discharge Disposition: HOME SELF-CARE
[2022-10-08 06:04] LABS: Levetiracetam (Keppra) 21.4 ug/mL (3.0-60.0)
[2022-10-08 11:19] LABS: Lamotrigine (Lamictal) 2.3 ug/mL (2.0-15.0)
== END 2022-10-07 12:24 | disposition home or self-care (01) ==
LOC: EC 11:33 → 3SCARD 16:30 → INTOOBSV 16:30 → 3SCARD 10-06 01:59 → UNDODISIN 10-07 12:24
PROVIDERS: ADMIT Internal Medicine; ATTEND Internal Medicine
DX: G40.911 Epilepsy, unspecified, intractable, with status epilepticus (principal); E11.9 Type 2 diabetes mellitus without complications; E78.5 Hyperlipidemia, unspecified; I10 Essential (primary) hypertension; I25.2 Old myocardial infarction; G40.909 Epilepsy, unspecified, not intractable, without status epilepticus; E66.9 Obesity, unspecified; G47.30 Sleep apnea, unspecified; I69.354 Hemiplegia and hemiparesis following cerebral infarction affecting left non-dominant side; E87.20 Acidosis, unspecified; Z79.899 Other long term (current) drug therapy; Z80.42 Family history of malignant neoplasm of prostate; Z68.35 Body mass index [BMI] 35.0-35.9, adult
CPT/HCPCS: 96361; 96372; 96374; 99285; 36415; 93005; 80156; 80164; 80165; 80048 ×2; 80175; 80177; 83605 ×2; 85025; 85027; 83036; 70450; G0378 ×3; J2405; J1650

== ENCOUNTER → 2022-10-09 | Outpatient (CLI) | payer OTHER, MEDICARE ==
--- NOTE | 2022-10-09 12:46 | CT ---
EXAMINATION TYPE: CT brain wo con DATE OF EXAM: 10/09/2022 COMPARISON: 10/06/2022 INDICATION: Cerebrovascular accident DLP: 1029.9 mGycm, Automated exposure control for dose reduction was used. CONTRAST: None CT of the brain is performed utilizing 3 mm thick sections through the posterior fossa and 3 mm thick sections through the remaining calvarium. Study is performed within 24 hours of arrival to the hosp ital. No abnormal hyperdensity is present to suggest an acute intracranial hemorrhage. No mass lesion is evident. No acute infarcts are evident. Breast areolar leads entering from the right extending towards the mid line. This causes some beam hardening artifact. Electronic devices along the calvarial craniotomy mar gins. Ventricles and sulci are appropriate for the patient age. Paranasal sinuses and mastoid air cells within the [id number] are clear. IMPRESSIONS: 1. No acute intracranial process. 2. Stable appearance of stimulator leads.
[2022-10-09 20:55] LABS: ALT 24 U/L (10-49); AST 27 U/L (14-35); Albumin 4.6 d/dL (3.8-4.9); Albumin/Globulin Ratio 1.64 Ratio (1.60-3.17); Alkaline Phosphatase 89 U/L (41-126); Blood Urea Nitrogen 17.5 mg/dL (9.0-27.0); Calcium 9.3 mg/dL (8.7-10.3); Carbamazepine (Tegretol) 10.4 UG/ML (4.0-12.0); Carbon Dioxide 23.9 mmol/L (21.6-31.8); Chloride 98 mmol/L (96-109); Globulin 2.8 d/dL (1.6-3.3); Glucose 87 mg/dL (70-110); Potassium 4.9 mmol/L (3.5-5.5); Sodium 137 mmol/L (135-145); Total Bilirubin 0.3 mg/dL (0.3-1.2); Total Protein 7.4 d/dL (6.2-8.2)
[2022-10-09 22:44] LABS: Acanthocytes 2+; Basophils # (A) 0.02 X 10*3/uL (0.00-0.10); Basophils % (A) 0.2 %; Eosinophils # (A) 0.04 X 10*3/uL (0.04-0.35); Eosinophils % (A) 0.4 %; HGB 14.9 d/dL (12.0-15.0); Lymphocytes # (A) 2.96 X 10*3/uL (0.90-5.00); Lymphocytes % (A) 27.7 %; MCH 31.2 pg (27.0-32.0); MCHC 32.4 d/dL (32.0-37.0); MCV 96.4 FL (80.0-97.0); Monocytes # (A) 0.96 X 10*3/uL (0.20-1.00); NRBC Per 100 WBC 0 X 10*3/uL (0.00-0.01); Neutrophils # (A) 6.66 X 10*3/uL (1.80-7.70); Neutrophils % (A) 62.3 %; Platelet Count 256 X 10*3/uL (140-440); RBC 4.77 X 10*6/uL (4.40-5.60); RDW 13.5 % (11.5-14.5); WBC 10.68 X 10*3/uL (4.50-10.00)
[2022-10-10 17:58] LABS: Lamotrigine (Lamictal) 3.1 ug/mL (2.0-15.0)
== END | disposition home or self-care (01) ==
LOC: RADCTMAIN 11:38
PROVIDERS: ATTEND Family Medicine
DX: I63.9 Cerebral infarction, unspecified (principal); G40.909 Epilepsy, unspecified, not intractable, without status epilepticus
CPT/HCPCS: 70450; 80053; 80156; 80175; 80177; 82607; 85025

== ENCOUNTER 2023-01-31 19:59 | Observation (INO) | payer OTHER, MEDICARE ==
[2023-01-31] MEDS ORDERED: LORazepam 2 MG/ML INJ IV STA (20:28)
[2023-01-31] MEDS ORDERED: SODIUM CHLORIDE 0.9% 1,000 ML IV STA (20:28)
[2023-01-31] MEDS ORDERED: levETIRAcetam IV 500 MG/5 ML VIAL IVP STA (20:28)
--- NOTE | 2023-01-31 20:29 | ED ---
Seizure HPI - General Chief Complaint: Seizure Stated Complaint: Seizure Time Seen by Provider: 01/31/23 20:17 Source: patient, EMS, RN notes reviewed, old records reviewed Mode of arrival: EMS Limitations: no limitations - History of Present Illness Initial Comments: This is a 37-year-old male DF for evaluation. Patient has history of seizures recurrent seizures and intractable seizure disorder. Patient had 3 seizures today causing him to feel unwell weak dizzy and lightheaded. Patient states that he feels like he couldn't continue to have seizures. No recent head injury or headache. No recent fevers. No other change in medications MD Complaint: seizure -: hour(s) Description of Episode: loss of consciousness, tonic-clonic movement -: second(s) Witnessed: yes - by bystander Trauma: Yes Seizure History: known seizure disorder, compliant with medication, history of non-compliance with treatment Place: home Possible Precipitating Event: none Associated Symptoms: denies other symptoms - Related Data Home Medications Medication Instructions Recorded Confirmed Clopidogrel [Plavix] 75 mg PO DAILY@0800 03/16/17 10/05/22 Divalproex ER [Depakote ER] 1,000 mg PO BID@0800,199905/26/18 10/05/22 Multivitamins, Thera [Multivitamin 1 tab PO DAILY@139905/26/18 10/05/22 (formulary)] Niacin (Inositol Niacinate) 500 mg PO DAILY@1400 05/26/18 10/05/22 [Niacin 500 mg Capsule] Atorvastatin Calcium [Lipitor] 80 mg PO HS 10/30/19 10/05/22 Folic Acid 0.8 mg PO DAILY@139910/30/19 10/05/22 amLODIPine [Norvasc] 2.5 mg PO HS 10/30/19 10/05/22 Cholecalciferol [Vitamin D3 (125 125 mcg PO DAILY@139907/12/21 10/05/22 Mcg = 5000 Iu)] Ezetimibe [Zetia] 10 mg PO HS 07/12/21 10/05/22 Thiamine [Vitamin B-1] 100 mg PO DAILY@1400 07/12/21 10/05/22 carBAMazepine 100 mg PO DAILY@0800 07/12/21 10/05/22 carBAMazepine 200 mg PO BID@07/12/21 10/05/22 rOPINIRole HCL [Requip] 1 mg PO BID@0800,199909/23/21 10/05/22 fluorouraciL [Efudex] 1 applic TOPICAL BID PRN 08/12/22 10/05/22 levETIRAcetam [Keppra] 1,000 mg PO BID@0800,199908/12/22 10/05/22 levETIRAcetam [Keppra] 500 mg PO BID@0800,199908/12/22 10/05/22 Previous Rx's Medication Instructions Recorded lamoTRIgine [LaMICtal] 75 mg PO BID@0800,1999 #60 tab 10/06/22 Allergies Allergy/AdvReac Type Severity Reaction Status Date / Time No Known Allergies Allergy Verified 01/31/23 20:07 Review of Systems ROS Statement: Those systems with pertinent positive or pertinent negative responses have been documented in the HPI. ROS Other: All systems not noted in ROS Statement are negative. Past Medical History Past Medical History: CVA/TIA, Diabetes Mellitus, Hyperlipidemia, Hypertension, Memory Impairment, Myocardial Infarction (AR), Seizure Disorder, Sleep Apnea/CPAP/BIPAP Additional Past Medical History / Comment(s): TIA-some slight residual left sided weakness-resolved, "borderline diabetes"-diet control, no CPAP, has vagus nerve stimulator, hx migraines, epilepsy last seizure 1 month ago, Last Myocardial Infarction Date:: 2015 History of Any Multi-Drug Resistant Organisms: None Reported Past Surgical History: Adenoidectomy, Ear Surgery, Heart Catheterization, Tonsillectomy Additional Past Surgical History / Comment(s): TUBES IN EARS, VAGUS NERVE STIMULATOR IMPLANT, responsive neuro stimulator placed 2021 Past Anesthesia/Blood Transfusion Reactions: Previous Problems w/ Anesthesia Additional Past Anesthesia/Blood Transfusion Reaction / Comment(s): STATES A LONG TIME TO WAKE UP AFTER ANESTHESIA. Past Psychological History: No Psychological Hx Reported Smoking Status: Never smoker Past Alcohol Use History: None Reported Past Drug Use History: None Reported - Past Family History Brother(s) Family Medical History: Cancer Additional Family Medical History / Comment(s): PROSTATE CANCER WITH METS. General Exam General appearance: alert, in no apparent distress Head exam: Present: atraumatic, normocephalic, normal inspection Eye exam: Present: normal appearance, PERRL, EOMI. Absent: scleral icterus, conjunctival injection, periorbital swelling ENT exam: Present: normal exam, mucous membranes moist Neck exam: Present: normal inspection. Absent: tenderness, meningismus, lymphadenopathy Respiratory exam: Present: normal lung sounds bilaterally. Absent: respiratory distress, wheezes, rales, rhonchi, stridor Cardiovascular Exam: Present: regular rate, normal rhythm, normal heart sounds. Absent: systolic murmur, diastolic murmur, rubs, gallop, clicks GI/Abdominal exam: Present: soft, normal bowel sounds. Absent: distended, tenderness, guarding, rebound, rigid Extremities exam: Present: normal inspection, full ROM, normal capillary refill. Absent: tenderness, pedal edema, joint swelling, calf tenderness Back exam: Present: normal inspection Neurological exam: Present: alert, oriented X3, CN II-XII intact Psychiatric exam: Present: normal affect, normal mood Skin exam: Present: warm, dry, intact, normal color. Absent: rash Course Vital Signs 01/31/23 01/31/23 20:03 21:40 Temperature 98.1 F Pulse Rate 99 79 Respiratory 19 18 Rate Blood Pressure 190/116 181/96 O2 Sat by Pulse 97 98 Oximetry - Reevaluation(s) Reevaluation #1: 01/31/23 21:57 Medical records reviewed Reevaluation #2: 01/31/23 21:57 No recurrent seizure here in the ER Patient still feels unwell Reevaluation #3: 01/31/23 21:58 Patient informed results and questions are answered Reevaluation #4: 01/31/23 20:29 Was pt. sent in by a medical professional or institution (, PA, SKETCH MAKER, urgent ca re, hospital, or assisted...) When possible be specific @ -no Did you speak to anyone other than the patient for history (EMS, parent, family, police, friend...)? What history was obtained from this source @ -no Did you review nursing and triage notes (agree or disagree)? Why? @ -agree Are old charts reviewed (outside hosp., previous admission, EMS record, old EKG, old radiological studies, urgent care reports/EKG's, assisted records)? Report findings @ -yes Differential Diagnosis (chest pain, altered mental status, abdominal pain women, abdominal pain men, vaginal bleeding, weakness, fever, dyspnea, syncope, headache, dizziness, GI bleed, back pain, seizure, CVA, palpatations, mental health, musculoskeletal)? @ -prior EKG interpreted by me (3pts min.). @ -yes X-rays interpreted by me (1pt min.). @ -yes CT interpreted by me (1pt min.). @ -no U/S interpreted by me (1pt. min.). @ -no What testing was considered but not performed or refused? (CT, X-rays, U/S, labs)? Why? @ -none What meds were considered but not given or refused? Why? @ -none Did you discuss the management of the patient with other professionals (professionals i.e. DrOk, PA, SKETCH MAKER, lab, RT, psych nurse, social work faculty member, field spec, teacher, earth science technical officer, insurance case manager)? Give summary @ -no Was smoking cessation discussed for >3mins.? @ -no Was critical care preformed (if so, how long)? @ -no Were there social determinants of health that impacted care today? How? (Homelessness, low income, unemployed, alcoholism, drug addiction, transportation, low edu. Level, literacy, decrease access to med. care, fpc, rehab)? @ -none Was there de-escalation of care discussed even if they declined (Discuss DNR or withdrawal of care, Hospice)? DNR status @ -no What co-morbidities impacted this encounter? (DM, HTN, Smoking, COPD, CAD, Cancer, CVA, ARF, Chemo, Hep., AIDS, mental health diagnosis, sleep apnea, morbid obesity)? @ -none Was patient admitted / discharged? Hospital course, mention meds given and route, prescriptions, significant lab abnormalities, going to OR and other pertinent info. @ - Undiagnosed new problem with uncertain prognosis? @ -no Drug Therapy requiring intensive monitoring for toxicity (Heparin, Nitro, Insulin, Cardizem)? @ -no Were any procedures done? @ -no Diagnosis/symptom? @ - Acute, or Chronic, or Acute on Chronic? @ -Acute Uncomplicated (without systemic symptoms) or Complicated (systemic symptoms)? @ -Complicated Side effects of treatment? @ -no Exacerbation, Progression, or Severe Exacerbation? @ -exacerbation Poses a threat to life or bodily function? How? (Chest pain, USA, AR, pneumonia, PE, COPD, DKA, ARF, appy, cholecystitis, CVA, Diverticulitis, Homicidal, Suicidal, threat to staff... and all critical care pts) @ -yes Reevaluation #5: 01/31/23 20:29 Differential Seizure: Recurrent seizure disorder, febrile seizure, alcohol withdrawal, stimulants, meningitis, encephalitis, intercranial hemorrhage, intracranial tumor, stroke, eclampsia, thyrotoxicosis, hypocalcemia, hyponatremia, hypernatremia, hypomagnesemia, psychogenic, this is not meant to be an all-inclusive list. - Consultations Consultation #1: Spoke with skye who agrees to admit this patient Medical Decision Making - Medical Decision Making 7 male with recurrent seizure. Patient multiple seizures today, patient states he feels unwell still, patient will be admitted for neurology evaluation, patient also his blood pressure control as he does have severe hypertension currently controlled - Lab Data Result diagrams: 01/31/23 20:33 01/31/23 20:33 Lab Results 01/31/23 01/31/23 Range/Units 20:33 20:33 WBC 6.9 (3.8-10.6) k/uL RBC 5.17 (4.30-5.90) m/uL Hgb 16.3 (13.0-17.5) gm/dL Hct 47.8 (39.0-53.0) % MCV 92.4 (80.0-100.0) fL MCH 31.4 (25.0-35.0) pg MCHC 34.0 (31.0-37.0) g/dL RDW 13.1 (11.5-15.5) % Plt Count 222 (150-450) k/uL MPV 7.7 Neutrophils % 59 % Lymphocytes % 33 % Monocytes % 5 % Eosinophils % 1 % Basophils % 0 % Neutrophils # 4.1 (1.3-7.7) k/uL Lymphocytes # 2.2 (1.0-4.8) k/uL Monocytes # 0.4 (0-1.0) k/uL Eosinophils # 0.1 (0-0.7) k/uL Basophils # 0.0 (0-0.2) k/uL Sodium 133 L (137-145) mmol/L Potassium 3.7 (3.5-5.1) mmol/L Chloride 95 L (98-107) mmol/L Carbon Dioxide 25 (22-30) mmol/L Anion Gap 13 mmol/L BUN 11 (9-20) mg/dL Creatinine 0.98 (0.66-1.25) mg/dL Est GFR (CKD-EPI)AfAm >90 (>60 ml/min/1.73 sqM) Est GFR (CKD-EPI)NonAf 87 (>60 ml/min/1.73 sqM) Glucose 168 H (74-99) mg/dL Calcium 9.2 (8.4-10.2) mg/dL Magnesium 1.7 (1.6-2.3) mg/dL Total Bilirubin 0.4 (0.2-1.3) mg/dL AST 33 (17-59) U/L ALT 26 (4-49) U/L Alkaline Phosphatase 77 (38-126) U/L Total Protein 7.2 (6.3-8.2) g/dL Albumin 4.3 (3.5-5.0) g/dL Salicylates <1.0 mg/dL Acetaminophen <10.0 ug/mL Phenytoin <3.0 ug/mL Valproic Acid 49.8 ug/mL Carbamazepine 11.0 ug/mL [place] <0.2 mmol/L Serum Alcohol <10 mg/dL Disposition Clinical Impression: Generalized seizure, Intractable seizure disorder, Epileptic seizure, generalized Disposition: ADMITTED IP TO THIS [facility] Condition: Fair Instructions (If sedation given, give patient instructions): Seizure/Epilepsy Discharge Instructions & Follow-Up Is patient prescribed a controlled substance at d/c from ED?: No Referrals: Aman Smyth MD [Primary Care Provider] - 1-2 days Time of Disposition: 22:00
[2023-01-31 20:52] LABS: Basophils % (A) 0 %; Eosinophils # (A) 0.1 k/uL (0-0.7); Eosinophils % (A) 1 %; HCT 47.8 % (39.0-53.0); HGB 16.3 gm/dL (13.0-17.5); Lymphocytes # (A) 2.2 k/uL (1.0-4.8); Lymphocytes % (A) 33 %; MCH 31.4 pg (25.0-35.0); MCV 92.4 fL (80.0-100.0); Mean Platelet Volume 7.7; Monocytes # (A) 0.4 k/uL (0-1.0); Monocytes % (A) 5 %; Neutrophils # (A) 4.1 k/uL (1.3-7.7); Neutrophils % (A) 59 %; Platelet Count 222 k/uL (150-450); RBC 5.17 m/uL (4.30-5.90); RDW 13.1 % (11.5-15.5); WBC 6.9 k/uL (3.8-10.6)
[2023-01-31 21:18] LABS: AST 33 U/L (17-59); African American GFR (CKD) >90 (>60 ml/min/1.73 sqM); Albumin 4.3 g/dL (3.5-5.0); Alkaline Phosphatase 77 U/L (38-126); Anion Gap 13 mmol/L; Blood Urea Nitrogen 11 mg/dL (9-20); Carbon Dioxide 25 mmol/L (22-30); Chloride 95 mmol/L (98-107); Non-African American GFR(CKD) 87 (>60 ml/min/1.73 sqM); Phenytoin (Dilantin) <3.0 ug/mL; Sodium 133 mmol/L (137-145); Total Bilirubin 0.4 mg/dL (0.2-1.3); Total Protein 7.2 g/dL (6.3-8.2)
[2023-01-31 21:22] LABS: Valproic Acid (Depakene) 49.8 ug/mL
[2023-01-31 21:32] LABS: ALT 26 U/L (4-49); Acetaminophen <10.0 ug/mL; Alcohol <10 mg/dL; Calcium 9.2 mg/dL (8.4-10.2); Glucose 168 mg/dL (74-99); Lithium <0.2 mmol/L; Magnesium 1.7 mg/dL (1.6-2.3); Potassium 3.7 mmol/L (3.5-5.1); Salicylate <1.0 mg/dL
[2023-01-31] MEDS ORDERED: ONDANSETRON 4 MG/2 ML VIAL IVP PRN (21:49)
[2023-01-31] MEDS ORDERED: NALOXONE 0.4 MG/ML 1 ML VIAL IV PRN (21:49)
[2023-01-31] MEDS ORDERED: LABETALOL 5 MG/ML VIAL MDV IVP STA (21:56)
[2023-01-31 22:03] LABS: Amphetamine Screen,Urine Not Detected (NotDetected); Barbiturate Screen,Urine Not Detected (NotDetected); Benzodiazepines Screen,Urine Not Detected (NotDetected); Cocaine Screen,Urine Not Detected (NotDetected); Methadone Screen, Urine Not Detected (NotDetected); Opiate Screen,Urine Not Detected (NotDetected); Oxycodone Screen, Urine Not Detected (NotDetected); Phencyclidine Screen,Urine Not Detected (NotDetected); Tricyclic Antidepressant,Urine Not Detected (NotDetected); Urn Cannabinoid Scrn Not Detected (NotDetected)
[2023-01-31] MEDS: SODIUM CHLORIDE 0.9% 1,000 ML IV SCH (22:17)
--- NOTE | 2023-02-01 05:12 | P.HPIM ---
History of Present Illness H&P Date: 01/31/23 Chief Complaint: breakthrough seizure 57 year old male with TBI, epilepsy patient admits to recurrent episodes of seizures lately , he has been following up with neurology to adjust his medications to help better control his seizures,. he had 3 seizures today with one episodes of tongue biting , but denies soiling his clothes with feces or urine. he reports possible head injury , but denies any cuts or wounds. his most recent seizure was last week . he denies any alcohol intake, denies non compliance with his meds. denies any sick contacts, denies any fever, chills, URI symptoms , nausea or vomiting, denies any abd pain urinary or bowel habits changes patient denies tobacco smoking, illicit drugs or heavy alcohol review of systems Pertinent positives as noted in HPI. All other systems were reviewed and are negative on exam Constitutional: No acute distress, Eyes: Anicteric sclerae, moist conjunctiva, Pupils equal round reactive to light ENMT: NC/AT Oropharynx clear, no erythema, or exudates Neck: Supple, no masses, or JVD No carotid bruits No thyromegaly Lungs: Clear to auscultation Clear to percussion Normal respiratory effort, no accessory muscle use Cardiovascular: Heart regular in rate and rhythm, No murmurs, gallops, or rubs No peripheral edema Abdominal: Soft Nontender, no guarding, rebound or rigidity Abdomen moving with respiration Normoactive bowel sounds No hepatomegaly, No splenomegaly No palpable mass No abdominal wall hernia noted Extremities: No digital cyanosis No clubbing Pedal pulses intact and symmetrical Radial pulses intact and symmetrical No calf tenderness Psychiatric: Alert and oriented to person, place Neuro Muscles Strength 5/5 in all 4 extremities Sensation to light touch grossly present throughout Cranial nerves II-XII grossly intact Lymphatics: no palpable cervical or supraclavicular lymph nodes Past Medical History Past Medical History: CVA/TIA, Diabetes Mellitus, Hyperlipidemia, Hypertension, Memory Impairment, Myocardial Infarction ([place]), Seizure Disorder, Sleep Apnea/CPAP/BIPAP Additional Past Medical History / Comment(s): TIA-some slight residual left sided weakness-resolved, "borderline diabetes"-diet control, no CPAP, has vagus nerve stimulator, hx migraines, epilepsy last seizure 1 month ago, Last Myocardial Infarction Date:: 2015 History of Any Multi-Drug Resistant Organisms: None Reported Past Surgical History: Adenoidectomy, Ear Surgery, Heart Catheterization, Tonsillectomy Additional Past Surgical History / Comment(s): TUBES IN EARS, VAGUS NERVE STIMULATOR IMPLANT, responsive neuro stimulator placed 2021 Past Anesthesia/Blood Transfusion Reactions: Previous Problems w/ Anesthesia Additional Past Anesthesia/Blood Transfusion Reaction / Comment(s): STATES A LO NG TIME TO WAKE UP AFTER ANESTHESIA. Past Psychological History: No Psychological Hx Reported Smoking Status: Never smoker Past Alcohol Use History: None Reported Past Drug Use History: None Reported - Past Family History Brother(s) Family Medical History: Cancer Additional Family Medical History / Comment(s): PROSTATE CANCER WITH METS. Medications and Allergies Home Medications Medication Instructions Recorded Confirmed Type Clopidogrel [Plavix] 75 mg PO DAILY@0800 03/16/17 01/31/23 History Divalproex ER [Depakote ER] 1,000 mg PO BID@0800,199905/26/18 01/31/23 History Multivitamins, Thera [Multivitamin 1 tab PO DAILY@139905/26/18 01/31/23 History (formulary)] Niacin (Inositol Niacinate) 500 mg PO DAILY@139905/26/18 01/31/23 History [Niacin 500 mg Capsule] Atorvastatin Calcium [Lipitor] 80 mg PO HS 10/30/19 01/31/23 History Folic Acid 0.8 mg PO DAILY@139910/30/19 01/31/23 History amLODIPine [Norvasc] 2.5 mg PO HS 10/30/19 01/31/23 History Cholecalciferol [Vitamin D3 (125 125 mcg PO DAILY@139907/12/21 01/31/23 History Mcg = 5000 Iu)] Ezetimibe [Zetia] 10 mg PO HS 07/12/21 01/31/23 History Thiamine [Vitamin B-1] 100 mg PO DAILY@139907/12/21 01/31/23 History carBAMazepine 100 mg PO DAILY@0800 07/12/21 01/31/23 History carBAMazepine 200 mg PO BID@1400,199907/12/21 01/31/23 History rOPINIRole HCL [Requip] 1 mg PO BID@0800,199909/23/21 01/31/23 History fluorouraciL [Efudex] 1 applic TOPICAL BID PRN 08/12/22 01/31/23 History levETIRAcetam [Keppra] 1,000 mg PO BID@08/12/22 01/31/23 History lamoTRIgine [LaMICtal] 100 mg PO BID@01/31/23 01/31/23 History Allergies Allergy/AdvReac Type Severity Reaction Status Date / Time No Known Allergies Allergy Verified 01/31/23 22:22 Physical Exam Vitals: Vital Signs Temp Pulse Resp BP Pulse Ox 02/01/23 03:22 69 16 137/65 98 01/31/23 22:55 67 17 159/89 95 01/31/23 22:19 75 17 151/95 96 01/31/23 21:40 79 18 181/96 98 01/31/23 20:03 98.1 F 99 19 190/116 97 Intake and Output 01/31/23 01/31/23 02/01/23 14:59 22:59 06:59 Other: Weight 70.307 kg Results CBC & Chem 7: 01/31/23 20:33 01/31/23 20:33 Labs: Abnormal Lab Results - Last 24 Hours (Table) 01/31/23 Range/Units 20:33 Sodium 133 L (137-145) mmol/L Chloride 95 L (98-107) mmol/L Glucose 168 H (74-99) mg/dL Assessment and Plan Assessment: 57 year old male with TBI, and history of epilepsy , coming in after experiencing 3 episodes of seizures back to back. he reports uncontrolled seizures, and his neurologist has been adjusting his meds, he claims to be compliant with his meds , I discussed the case with ED doc and I accepted the admission for seizure control and neurology evaluation with anticipated length of stay < 2 midnights seizure disorder with uncontrolled seizures resume home meds tegretol, depakote, lamictal and keppra PRN ativan for seizure valproic acid level and cabamazepin are theraputic alcohol , tylenol and salicylate levels are negative seizure precautions patient loaded IV with keppra neurology consult urine drug screen negative hypertension poorly controlled resume norvasc monitor vital signs renal function unremarkable Na 133, K 3.7 BUN 11 cr 0.98 full code DVT PPX heparin sc tid
[2023-02-01 06:29] LABS: Basophils % (A) 0 %; Eosinophils # (A) 0.1 k/uL (0-0.7); Eosinophils % (A) 1 %; HCT 41.5 % (39.0-53.0); HGB 13.6 gm/dL (13.0-17.5); Lymphocytes # (A) 3.2 k/uL (1.0-4.8); Lymphocytes % (A) 35 %; MCH 30.8 pg (25.0-35.0); MCHC 32.8 g/dL (31.0-37.0); MCV 93.9 fL (80.0-100.0); Monocytes # (A) 0.7 k/uL (0-1.0); Monocytes % (A) 8 %; Neutrophils # (A) 5.1 k/uL (1.3-7.7); Neutrophils % (A) 54 %; Platelet Count 238 k/uL (150-450); RBC 4.42 m/uL (4.30-5.90); RDW 13.1 % (11.5-15.5); WBC 9.4 k/uL (3.8-10.6)
[2023-02-01 06:44] LABS: ALT 21 U/L (4-49); AST 27 U/L (17-59); African American GFR (CKD) >90 (>60 ml/min/1.73 sqM); Albumin 3.8 g/dL (3.5-5.0); Alkaline Phosphatase 68 U/L (38-126); Anion Gap 10 mmol/L; Blood Urea Nitrogen 8 mg/dL (9-20); Carbon Dioxide 27 mmol/L (22-30); Chloride 97 mmol/L (98-107); Glucose 93 mg/dL (74-99); Magnesium 1.8 mg/dL (1.6-2.3); Non-African American GFR(CKD) >90 (>60 ml/min/1.73 sqM); Phosphorus 4.8 mg/dL (2.5-4.5); Potassium 4.5 mmol/L (3.5-5.1); Sodium 134 mmol/L (137-145); Total Bilirubin 0.3 mg/dL (0.2-1.3); Total Protein 6.6 g/dL (6.3-8.2)
[2023-02-01] MEDS ORDERED: CLOPIDOGREL 75 MG TAB PO SCH (08:00)
[2023-02-01] MEDS ORDERED: carBAMazepine 200 MG TAB PO SCH ×2 (08:00→14:00)
[2023-02-01] MEDS ORDERED: lamoTRIgine 100 MG TAB PO SCH (08:00)
[2023-02-01] MEDS ORDERED: levETIRAcetam 500 MG TAB PO SCH (08:00)
[2023-02-01] MEDS ORDERED: DIVALPROEX ER 500 MG TAB.ER.24H PO SCH (08:00)
[2023-02-01 14:25] VITALS: BP 153/97; PULSE 71; RESP 15; TEMP 98.2
[2023-02-01] MEDS: SODIUM CHLORIDE 0.9% 1,000 ML IV SCH (14:34)
--- NOTE | 2023-02-01 15:30 | P.DS ---
Providers Date of admission: 01/31/23 21:50 Expected date of discharge: 02/01/23 Attending physician: John Tate MD Consults: 01/31/23 21:49 Consult Physician Routine Consulting Provider: Valdez Denson Consult Reason/Comments: sz Do you want consulting provider notified?: Yes Primary care physician: Aman Malin [facility] Course: Discharge Diagnosis: Recurrent breakthrough seizures. No medication changes were made. Patient to continue carbamazepine, Depakote, Lamictal, and Keppra. Patient informed of [place] state law stating no driving until seizure free for 6 months. Patient also instructed to avoid climbing ladders, operating dangerous or heavy machinery or unsupervised swimming until seizure free for 6 months. Epilepsy status post nerve stimulator placement March 2022 Previous TBI resulting in memory impairment Hypertension Hyperlipidemia Previous CVA Migraines Hospital Course: Patient is a 57-year-old male with a past medical history of previous TBI and epilepsy and memory impairment with recurrent breakthrough seizures on carbamazepine, Depakote, Lamictal, and Keppra and status post nerve stimulator, hypertension, hyperlipidemia, and previous CVA on Plavix. Patient presented to the hospital on 01/31/23 secondary to breakthrough seizures. Patient reportedly had 3 seizures prior to arrival to the hospital. Upon arrival to our facility patient underwent full evaluation. Vital signs were completed and reviewed. Patient with hypertensive urgency upon arrival with blood pressure 190/116, heart rate 99, respiratory rate 19, temp 98.1F, SpO2 of 97% on room air. EKG showing normal sinus mechanism at 66 bpm. Labs completed and reviewed. CBC unremarkable. BMP revealed mild hyponatremia sodium of 133 and hypochloremia with chloride of 95. Blood glucose was 168. Magnesium slightly low at 1.7. Liver profile unremarkable. Salicylates, acetaminophen, and serum alcohol were all negative. Urine drug screen was negative. Depakote level was slightly subtherapeutic at 49.8 with therapeutic goal of 50-120. Carbamazepine levels therapeutic at 11.0 with therapeutic range of 4-12.. Patient was admitted under our services with consultation to neurology. Neurology clearing patient from neurological perspective for discharge recommending outpatient follow-up with patient's primary neurologist. Patient has been seizure-free since arrival to our facility. Patient is medically stable for discharge at this time. Patient instructed to follow-up with his PCP in 1-2 days and with his neurologist Dr. Will in 1-2 weeks. Physical exam: Vital signs reviewed and stable. General: Nontoxic, no distress and appears stated age. Derm: Skin warm and dry, normal coloration for ethnicity. Head: Atraumatic, normocephalic and symmetric. Eyes: EOMs intact, no lid lag, and anicteric sclera Mouth: no lip lesions, mucus membranes moist Cardiovascular: regular rate and rhythm with normal S1S2, no murmur, positive posterior tibial pulses bilaterally, and cap refill < 2 seconds. Lungs: Respirations even, regular, and unlabored on room air. Lungs CTA bilaterally, no rhonchi, no rales, no wheezing, and no accessory muscle usage. Abdominal: soft, nontender to palpation, no guarding, no appreciable organomegaly Ext: ROM intact. No gross muscle atrophy, no edema, no contractures Neuro: Speech clear, face symmetrical and CN II-XII grossly intact with no noted focal neuro deficits Psych: Alert and oriented to person, place, time, and situation. Appropriate and pleasant affect. A total of 32 minutes of time were spent preparing this complex discharge summary. Pt was discharged on 02/01/23 at 3:26 PM. Patient was seen independently by Nurse Practitioner. This document was prepared using [employer] dictation software. Please allow for errors in lithograph designer while rare they do occur. Patient Condition at Discharge: Stable Plan - Discharge Summary New Discharge Prescriptions: Continue Clopidogrel [Plavix] 75 mg PO DAILY@0800 Divalproex ER [Depakote ER] 1,000 mg PO BID@0800,2000 Niacin (Inositol Niacinate) [Niacin 500 mg Capsule] 500 mg PO DAILY@1400 Multivitamins, Thera [Multivitamin (formulary)] 1 tab PO DAILY@1400 amLODIPine [Norvasc] 2.5 mg PO HS Atorvastatin Calcium [Lipitor] 80 mg PO HS Folic Acid 0.8 mg PO DAILY@1400 Thiamine [Vitamin B-1] 100 mg PO DAILY@1400 Cholecalciferol [Vitamin D3 (125 Mcg = 5000 Iu)] 125 mcg PO DAILY@1400 levETIRAcetam [Keppra] 1,500 mg PO BID@0800,2000 lamoTRIgine [LaMICtal] 100 mg PO BID@0800,2000 Ezetimibe [Zetia] 10 mg PO HS carBAMazepine 200 mg PO BID@1400,1999 carBAMazepine 100 mg PO DAILY@08 rOPINIRole HCL [Requip] 1 mg PO BID@799,1999 fluorouraciL [Efudex] 1 applic TOPICAL BID PRN PRN Reason: lesions Discharge Medication List Clopidogrel [Plavix] 75 mg PO DAILY@0800 03/16/17 [History] Divalproex ER [Depakote ER] 1,000 mg PO BID@799,199905/26/18 [History] Multivitamins, Thera [Multivitamin (formulary)] 1 tab PO DAILY@139905/26/18 [History] Niacin (Inositol Niacinate) [Niacin 500 mg Capsule] 500 mg PO DAILY@139905/26/18 [History] Atorvastatin Calcium [Lipitor] 80 mg PO HS 10/30/19 [History] Folic Acid 0.8 mg PO DAILY@139910/30/19 [History] amLODIPine [Norvasc] 2.5 mg PO HS 10/30/19 [History] Cholecalciferol [Vitamin D3 (125 Mcg = 5000 Iu)] 125 mcg PO DAILY@139907/12/21 [History] Ezetimibe [Zetia] 10 mg PO HS 07/12/21 [History] Thiamine [Vitamin B-1] 100 mg PO DAILY@139907/12/21 [History] carBAMazepine 100 mg PO DAILY@79907/12/21 [History] carBAMazepine 200 mg PO BID@1399,199907/12/21 [History] rOPINIRole HCL [Requip] 1 mg PO BID@799,199909/23/21 [History] fluorouraciL [Efudex] 1 applic TOPICAL BID PRN 08/12/22 [History] levETIRAcetam [Keppra] 1,500 mg PO BID@799,199908/12/22 [History] lamoTRIgine [LaMICtal] 100 mg PO BID@799,199901/31/23 [History] Follow up Appointment(s)/Referral(s): Aman Smyth MD [Primary Care Provider] - 1-2 days Patient Instructions/Handouts: Seizure/Epilepsy Discharge Instructions & Follow-Up Activity/Diet/Wound Care/Special Instructions: Activity: As tolerated. Take breaks as needed. Diet: Heart healthy and carb consistent diet. Avoid salts, or foods with hidden salts such as canned or boxed foods and frozen dinners. Extra salt makes your heart work harder and traps the fluid in your body for longer. Special Instructions: Take all of your medications as directed and remember to keep all of your doctor's appointments and follow-up as needed. You will need to follow up outpatient with your neurologist, Dr. Will in 1-2 weeks. [place] state law states no driving until seizure free for 6 months. It is also important to avoid climbing ladders, operating dangerous or heavy machinery or unsupervised swimming until seizure free for 6 months. Thank you for allowing us to participate in your care, it was truly a pleasure having you for our patient!!! Discharge Disposition: HOME SELF-CARE
--- NOTE | 2023-02-01 20:06 | P.CNNES ---
History of Present Illness Consult date: 02/01/23 Requesting physician: Juancarlos Mcdaniel Reason for Consult: Seizures, History of Present Illness: Patient is a 57-year-old male came to the hospital by ambulance yesterday at 7:59 PM for recurrent seizures. As per EMS flow sheet, when they arrived on patient care of family. Per family report, patient had 3 seizures today, the first 2 seizures lasted 2-3 minutes each, which is normal for him, but the last one lasted about 12-15 minutes with longer than usual postictal period. Per family, no recent falls. Patient has not been sick. Per family, patient takes all his medications appropriately. Patient was alert but confused and slow to respond, alert and oriented 1-2. Patient denied any nausea vomiting or diarrhea. Vitals at the scene was blood pressure 182/95, pulse rate 88, respiration 20, saturation 98%. Patient's was also present at this time, who states, that patient had 2 seizures at home, one seizure in [facility] and one seizure while he was in the car for which she called EMS. His seizures consist of staring off in space, did not know where he was, and his hands were shaking, and his legs were shaking. He did stiffen up, but not too bad. No tongue bite or loss of control of urine. Patient's vitals on arrival blood pressure 190/116, subsequently 181/96 and then 151/95. Pulse rate 99, temperature 98.1. Blood test shows normal CBC, sodium 133 potassium 3.7, normal renal functions, hepatic panel, Depakote level is 49.8, Tegretol 11.0(4-12). Urine drug screen negative. Patient takes Plavix 75 mg, Depakote 1000 mg twice a day, niacin, multivitamin, amlodipine, Lipitor, folic acid, Zetia, Tegretol 200 mg twice a day at 2 PM and 8 PM and 100 mg every morning at 8 AM. Thiamine, Requip, problem thousand and 10 twice a day, Lamictal 100 mg twice a day. Patient was recently admitted to the hospital, seen by Dr. Esparza on 10/06/2022. Patient was admitted for status epilepticus. Patient has medically intractable epilepsy, VNS and RNS. Patient has been seen by myself on 10/31/2019 when he had presented with similar scenario. Patient was found home unresponsive and he had felt that he likely had a seizure. Patient has mentioned that he has history of seizures since he was age 12. Patient was on Depakote 750 mg every 12 hours (now 1000 mg twice a day), Lamictal 150 mg twice a day (now 100 mg twice a day), Keppra 1000 mg twice a day (now 1500 mg twice a day) and Carbatrol 300 mg twice a day (now patient is on Carbatrol 200 mg twice a day and 100 mg at 8 AM). Patient follows up with Dr. Grigsby. Patient has mentioned that his seizures localizes to the right side. Patient gets petit mal seizures. He says that his "stomach gets going", then gets weak feeling. His seizure lasts for a couple minutes. He denies any tongue bite or loss of control of urine. He gets seizures every month or every 1-2 months. Patient states that he is getting seizures about once or twice a month. He follows up with Dr. Grigsby. Patient also has seen Dr. Montes in [place] and patient underwent magnetoencephalography on 07/22/2021. Patient has a VNS, but feels it does not help. Review of Systems Constitutional: Denies chills, Denies fever Eyes: denies blurred vision, denies diplopia, denies pain Ears: deny: decreased hearing, ear discharge Ears, nose, mouth and throat: Denies headache, Denies sore throat Cardiovascular: Reports shortness of breath, Denies chest pain Respiratory: Denies cough, Denies excessive sputum Gastrointestinal: Denies abdominal pain, Denies diarrhea, Denies nausea, Denies vomiting Musculoskeletal: Reports low back pain, Denies myalgias, Denies neck pain Integumentary: Denies pruritus, Denies rash Neurological: Reports as per HPI Psychiatric: Denies anxiety, Denies depression Endocrine: Reports fatigue, Denies weight change Past Medical History Past Medical History: CVA/TIA, Diabetes Mellitus, Hyperlipidemia, Hypertension, Memory Impairment, Myocardial Infarction ([place]), Seizure Disorder, Sleep Apnea/CPAP/BIPAP Additional Past Medical History / Comment(s): TIA-some slight residual left sided weakness-resolved, "borderline diabetes"-diet control, no CPAP, has vagus nerve stimulator, hx migraines, epilepsy last seizure 1 month ago, Last Myocardial Infarction Date:: 2015 History of Any Multi-Drug Resistant Organisms: None Reported Past Surgical History: Adenoidectomy, Ear Surgery, Heart Catheterization, Tonsillectomy Additional Past Surgical History / Comment(s): TUBES IN EARS, VAGUS NERVE STIMULATOR IMPLANT, responsive neuro stimulator placed 2021 Past Anesthesia/Blood Transfusion Reactions: Previous Problems w/ Anesthesia Additional Past Anesthesia/Blood Transfusion Reaction / Comment(s): STATES A LONG TIME TO WAKE UP AFTER ANESTHESIA. Past Psychological History: No Psychological Hx Reported Additional Psychological History / Comment(s): . Smoking Status: Never smoker Past Alcohol Use History: None Reported Past Drug Use History: None Reported - Past Family History Brother(s) Family Medical History: Cancer Additional Family Medical History / Comment(s): PROSTATE CANCER WITH METS. Medications and Allergies Home Medications Medication Instructions Recorded Confirmed Type Clopidogrel [Plavix] 75 mg PO DAILY@0800 03/16/17 01/31/23 History Divalproex ER [Depakote ER] 1,000 mg PO BID@08,199905/26/18 01/31/23 History Multivitamins, Thera [Multivitamin 1 tab PO DAILY@139905/26/18 01/31/23 History (formulary)] Niacin (Inositol Niacinate) 500 mg PO DAILY@139905/26/18 01/31/23 History [Niacin 500 mg Capsule] Atorvastatin Calcium [Lipitor] 80 mg PO HS 10/30/19 01/31/23 History Folic Acid 0.8 mg PO DAILY@139910/30/19 01/31/23 History amLODIPine [Norvasc] 2.5 mg PO HS 10/30/19 01/31/23 History Cholecalciferol [Vitamin D3 (125 125 mcg PO DAILY@139907/12/21 01/31/23 History Mcg = 5000 Iu)] Ezetimibe [Zetia] 10 mg PO HS 07/12/21 01/31/23 History Thiamine [Vitamin B-1] 100 mg PO DAILY@139907/12/21 01/31/23 History carBAMazepine 100 mg PO DAILY@0800 07/12/21 01/31/23 History carBAMazepine 200 mg PO BID@1399,199907/12/21 01/31/23 History rOPINIRole HCL [Requip] 1 mg PO BID@08,199909/23/21 01/31/23 History fluorouraciL [Efudex] 1 applic TOPICAL BID PRN 08/12/22 01/31/23 History levETIRAcetam [Keppra] 1,500 mg PO BID@799,199908/12/22 02/01/23 History lamoTRIgine [LaMICtal] 100 mg PO BID@799,199901/31/23 01/31/23 History Allergies Allergy/AdvReac Type Severity Reaction Status Date / Time No Known Allergies Allergy Verified 01/31/23 22:22 Physical Examination - Vital Signs Vital Signs: Vital Signs Temp Pulse Pulse Resp BP BP Pulse Ox 02/01/23 07:36 97.6 F 68 16 141/93 99 02/01/23 06:00 59 L 18 155/68 95 02/01/23 03:22 69 16 137/65 98 01/31/23 22:55 67 17 159/89 95 01/31/23 22:19 75 17 151/95 96 01/31/23 21:40 79 18 181/96 98 01/31/23 20:03 98.1 F 99 19 190/116 97 Intake and Output 01/31/23 02/01/23 02/01/23 22:59 06:59 14:59 Intake Total 118 Balance 118 Intake: Oral 118 Other: Weight 70.307 kg 70.307 kg Patient is a middle aged male, in no acute distress. He appears slightly postictal. Patient has slightly slow mentation, but is alert awake oriented to time place and person. Speech and language functions are normal. Attention, concentration and fund of knowledge is adequate. On cranial examination, pupils are round and reacting to light, visual kaur are full on confrontation, extraocular muscles are intact with no nystagmus. Patient has right facial asymmetry, only with active testing, likely from his history of previous Hammonds's palsy. His tongue protrudes to the midline. Palatal elevation and sensation normal, hearing and shoulder shrug normal, facial se nsation normal. Shoulder shrug normal. Patient's upper lip is swollen from the fall. On muscle strength testing, there is no pronator drift and the strength is normal in arms and legs distally and proximally. Deep tendon reflexes are 1+ and plantars downgoing. Sensory to touch is equal with no neglect. Cerebellar function showed tremulousness for [id number] testing bilaterally, right more than left, but no ataxia. Tone and bulk of muscles normal. Gait deferred. On general examination, there is no carotid bruit or murmur, S1-S2 audible. Abdomen is soft nontender. No organomegaly. Bowel sounds present. Chest is clear. Mild peripheral edema. Results - Laboratory Findings CBC and BMP: 02/01/23 06:02 02/01/23 06:02 Abnormal Lab Findings: Abnormal Labs 01/31/23 02/01/23 20:33 06:02 Sodium 133 L 134 L Chloride 95 L 97 L BUN 8 L Glucose 168 H Phosphorus 4.8 H Assessment and Plan Assessment: * Breakthrough seizures, recurrent. Etiology of breakthrough seizures uncertain. Patient's blood pressure was very high in the ER, which may be the cause of seizure. Although to the contrary, it is also possible that seizures may have resulted in elevated blood pressure. * History of medically intractable epilepsy, with VNS and RNS. Patient is on 4 antiepileptic medication with therapeutic doses and levels. Patient is fully compliant with medications. * History of right Hammonds's palsy * Diabetes * Hypertension * Obesity * Sleep apnea Plan: * Patient's seizure was possibly related to uncontrolled blood pressure. Recommend optimize control of blood pressure. * Continue seizure medications including Depakote 1000 mg twice a day, Lamictal 100 mg twice a day, Keppra 1500 mg twice a day and Carbatrol 200 mg twice a day (at 2 PM and 8 PM) and 100 mg at 8 AM. * Depakote level is 49.8, Tegretol 11.0(4-12). Keppra and Lamictal level are pending. Patient is already on fully optimal doses of Keppra, Lamictal and Tegretol. Her dose of Depakote can produce worsening tremors. Patient does not want to make any changes in his medication and wants to see his neurologist. * Continue Plavix 75 mg, Zetia 10 mg and Lipitor 80 mg. * Recommend patient follow up with his neurologist outpatient within 1-2 weeks. He has routine appointment in March, which is too far. * Patient was informed of [place] state law of no driving unless seizure free for 6 pills, climbing ladders, operating dangerous machinery or unsupervised swimming. * Neurologically clear for discharge. * Thank you for the consult.
[2023-02-01] MEDS ORDERED: amLODIPine 2.5 MG TAB PO SCH (21:00)
[2023-02-01] MEDS ORDERED: EZETIMIBE 10 MG TAB PO SCH (21:00)
[2023-02-01] MEDS ORDERED: ATORVASTATIN 80 MG TAB PO SCH (21:00)
[2023-02-02 07:54] LABS: Levetiracetam (Keppra) 25.6 ug/mL (3.0-60.0)
[2023-02-02 07:56] LABS: Lamotrigine (Lamictal) 3.8 ug/mL (2.0-15.0)
== END 2023-02-01 16:01 | disposition home or self-care (01) ==
LOC: EC 19:59 → 6NMEDSUR 21:50
PROVIDERS: ADMIT Internal Medicine; ATTEND Internal Medicine
DX: G40.411 Other generalized epilepsy and epileptic syndromes, intractable, with status epilepticus (principal); I10 Essential (primary) hypertension; E87.1 Hypo-osmolality and hyponatremia; E87.8 Other disorders of electrolyte and fluid balance, not elsewhere classified; G43.909 Migraine, unspecified, not intractable, without status migrainosus; E78.5 Hyperlipidemia, unspecified; E11.9 Type 2 diabetes mellitus without complications; I25.2 Old myocardial infarction; R41.3 Other amnesia; E66.9 Obesity, unspecified; Z68.25 Body mass index [BMI] 25.0-25.9, adult; Z79.02 Long term (current) use of antithrombotics/antiplatelets; Z79.899 Other long term (current) drug therapy; Z87.820 Personal history of traumatic brain injury; Z86.73 Personal history of transient ischemic attack (TIA), and cerebral infarction without residual deficits; Z96.82 Presence of neurostimulator; Z98.890 Other specified postprocedural states; Z80.42 Family history of malignant neoplasm of prostate
CPT/HCPCS: 96361 ×2; 96374; 96375; 99285; 36415; 93005; 80156; 80164; 80053 ×2; 80175; 80177; 80185; 80178; 83735 ×2; 84100; 85025 ×2; 80306; 80143; 80320; 80179; G0378 ×2; J2060; J1953; J1920

== ENCOUNTER 2023-04-23 10:45 | Observation (INO) | payer OTHER, MEDICARE ==
[2023-04-23 11:51] LABS: Basophils % (A) 0 %; Eosinophils % (A) 0 %; HCT 41.4 % (39.0-53.0); Lymphocytes # (A) 1.3 k/uL (1.0-4.8); Lymphocytes % (A) 25 %; MCH 31.7 pg (25.0-35.0); MCHC 33.9 g/dL (31.0-37.0); MCV 93.6 fL (80.0-100.0); Mean Platelet Volume 8.2; Monocytes # (A) 0.4 k/uL (0-1.0); Monocytes % (A) 7 %; Neutrophils # (A) 3.5 k/uL (1.3-7.7); Neutrophils % (A) 66 %; Platelet Count 215 k/uL (150-450); RBC 4.42 m/uL (4.30-5.90); RDW 13.5 % (11.5-15.5); WBC 5.4 k/uL (3.8-10.6)
[2023-04-23 12:08] LABS: ALT 25 U/L (4-49); AST 35 U/L (17-59); African American GFR (CKD) >90 (>60 ml/min/1.73 sqM); Alcohol <10 mg/dL; Alkaline Phosphatase 85 U/L (38-126); Anion Gap 15 mmol/L; Blood Urea Nitrogen 9 mg/dL (9-20); Calcium 8.6 mg/dL (8.4-10.2); Carbon Dioxide 18 mmol/L (22-30); Chloride 102 mmol/L (98-107); Glucose 110 mg/dL (74-99); Non-African American GFR(CKD) 82 (>60 ml/min/1.73 sqM); Potassium 4.1 mmol/L (3.5-5.1); Sodium 135 mmol/L (137-145); Total Bilirubin 0.3 mg/dL (0.2-1.3); Total Protein 6.7 g/dL (6.3-8.2)
[2023-04-23 12:26] LABS: Amphetamine Screen,Urine Not Detected (NotDetected); Barbiturate Screen,Urine Not Detected (NotDetected); Benzodiazepines Screen,Urine Not Detected (NotDetected); Cocaine Screen,Urine Not Detected (NotDetected); Methadone Screen, Urine Not Detected (NotDetected); Opiate Screen,Urine Not Detected (NotDetected); Oxycodone Screen, Urine Not Detected (NotDetected); Phencyclidine Screen,Urine Not Detected (NotDetected); Tricyclic Antidepressant,Urine Not Detected (NotDetected); Urn Cannabinoid Scrn Not Detected (NotDetected)
--- NOTE | 2023-04-23 12:26 | ED ---
General Adult HPI - General Chief complaint: Seizure Stated complaint: Seizure Time Seen by Provider: 04/23/23 11:00 Source: patient, EMS, RN notes reviewed, old records reviewed Mode of arrival: EMS Limitations: altered mental status - History of Present Illness Initial comments: This a 58-year-old male who presents emergency Department because he had some seizures. According to the the heard a banging SI joint outside and the patient appeared to be in a postictal state. Patient then received one more time lasted less than a minute and then again seized for EMS. EMS gave 10 of Versed IM and patient remains unable to answer any questions at this time. No further history is available since the did not witness the episode only was there after the fact. - Related Data Home Medications Medication Instructions Recorded Confirmed Clopidogrel [Plavix] 75 mg PO DAILY@0800 03/16/17 01/31/23 Divalproex ER [Depakote ER] 1,000 mg PO BID@0800,199905/26/18 01/31/23 Multivitamins, Thera [Multivitamin 1 tab PO DAILY@139905/26/18 01/31/23 (formulary)] Niacin (Inositol Niacinate) 500 mg PO DAILY@139905/26/18 01/31/23 [Niacin 500 mg Capsule] Atorvastatin Calcium [Lipitor] 80 mg PO HS 10/30/19 01/31/23 Folic Acid 0.8 mg PO DAILY@139910/30/19 01/31/23 amLODIPine [Norvasc] 2.5 mg PO HS 10/30/19 01/31/23 Cholecalciferol [Vitamin D3 (125 125 mcg PO DAILY@139907/12/21 01/31/23 Mcg = 5000 Iu)] Ezetimibe [Zetia] 10 mg PO HS 07/12/21 01/31/23 Thiamine [Vitamin B-1] 100 mg PO DAILY@139907/12/21 01/31/23 carBAMazepine 100 mg PO DAILY@0800 07/12/21 01/31/23 carBAMazepine 200 mg PO BID@1399,199907/12/21 01/31/23 rOPINIRole HCL [Requip] 1 mg PO BID@0800,199909/23/21 01/31/23 fluorouraciL [Efudex] 1 applic TOPICAL BID PRN 08/12/22 01/31/23 levETIRAcetam [Keppra] 1,500 mg PO BID@080008/12/22 02/01/23 lamoTRIgine [LaMICtal] 100 mg PO BID@799,199901/31/23 01/31/23 Allergies Allergy/AdvReac Type Severity Reaction Status Date / Time No Known Allergies Allergy Verified 04/23/23 11:02 Review of Systems ROS Statement: Those systems with pertinent positive or pertinent negative responses have been documented in the HPI. ROS Other: All systems not noted in ROS Statement are negative. Past Medical History Past Medical History: CVA/TIA, Diabetes Mellitus, Hyperlipidemia, Hypertension, Memory Impairment, Myocardial Infarction ([place]), Seizure Disorder, Sleep Apnea/CPAP/BIPAP Additional Past Medical History / Comment(s): TIA-some slight residual left sided weakness-resolved, "borderline diabetes"-diet control, no CPAP, has vagus nerve stimulator, hx migraines, epilepsy last seizure 1 month ago, seizures x2 (04/23/23) Last Myocardial Infarction Date:: 2015 History of Any Multi-Drug Resistant Organisms: None Reported Past Surgical History: Adenoidectomy, Ear Surgery, Heart Catheterization, Tonsillectomy Additional Past Surgical History / Comment(s): TUBES IN EARS, VAGUS NERVE STIMULATOR IMPLANT, responsive neuro stimulator placed 2021 Past Anesthesia/Blood Transfusion Reactions: Previous Problems w/ Anesthesia Additional Past Anesthesia/Blood Transfusion Reaction / Comment(s): STATES A LONG TIME TO WAKE UP AFTER ANESTHESIA. Past Psychological History: No Psychological Hx Reported Smoking Status: Never smoker Past Alcohol Use History: None Reported Past Drug Use History: None Reported - Past Family History Brother(s) Family Medical History: Cancer Additional Family Medical History / Comment(s): PROSTATE CANCER WITH METS. General Exam - General Exam Comments Initial Comments: GENERAL: Patient is well-developed and well-nourished. Patient is nontoxic and well-h ydrated and is in mild distress. ENT: Neck is soft and supple. No significant lymphadenopathy is noted. Oropharynx is clear. Moist mucous membranes. Neck has full range of motion without eliciting any pain. EYES: The sclera were anicteric and conjunctiva were pink and moist. Extraocular mov ements were intact and pupils were equal round and reactive to light. Eyelids were unremarkable. PULMONARY: Unlabored respirations. Good breath sounds bilaterally. No audible rales rhonchi or wheezing was noted. CARDIOVASCULAR: There is a regular rate and rhythm without any murmurs gallops or rubs. ABDOMEN: Soft and nontender with normal bowel sounds. SKIN: Skin is clear with no lesions or rashes and otherwise unremarkable. NEUROLOGIC: Patient is alert and oriented x3. Cranial nerves II through XII are grossly intact. Motor and sensory are also intact. Normal speech, volume and content. Symmetrical smile. MUSCULOSKELETAL: Normal extremities with adequate strength and full range of motion. LYMPHATICS: No significant lymphadenopathy is noted PSYCHIATRIC: Normal psychiatric evaluation. Limitations: altered mental status Course Vital Signs 04/23/23 10:56 Temperature 97.0 F L Pulse Rate 82 Respiratory 30 H Rate Blood Pressure 99/67 O2 Sat by Pulse 100 Oximetry Medical Decision Making - Medical Decision Making EKG is interpreted by myself EKG shows a sinus rhythm at 85 bpm MS interval 288 QRSs 112 QT interval 366 QTC is 409 per patient's EKG shows no ST segment elevation or depression. Was pt. sent in by a medical professional or institution (, [facility], [employer], urgent care, hospital, or senior living...) When possible be specific @ -No Did you speak to anyone other than the patient for history (EMS, parent, family, police, friend...)? What history was obtained from this source @ -Gave all the questions patient Did you review nursing and triage notes (agree or disagree)? Why? @ -I reviewed and agree with nursing and triage notes Were old charts reviewed (outside hosp., previous admission, EMS record, old EKG, old radiological studies, urgent care reports/EKG's, senior living records)? Report findings @ -I reviewed prior charts of prior lab work on this patient Differential Diagnosis (chest pain, altered mental status, abdominal pain women, abdominal pain men, vaginal bleeding, weakness, fever, dyspnea, syncope, headache, dizziness, GI bleed, back pain, seizure, CVA, palpatations, mental health, musculoskeletal)? @ -Differential Seizure: Recurrent seizure disorder, febrile seizure, alcohol withdrawal, stimulants, meningitis, encephalitis, intercranial hemorrhage, intracranial tumor, stroke, eclampsia, thyrotoxicosis, hypocalcemia, hyponatremia, hypernatremia, hypomagnesemia, psychogenic, this is not meant to be an all-inclusive list. EKG interpreted by me (3pts min.). @ -As above X-rays interpreted by me (1pt min.). @ -Chest x-ray and pelvis x-ray showed no acute abnormality CT interpreted by me (1pt min.). @ -CT of the C-spine and CT of the brain shows no acute abnormality U/S interpreted by me (1pt. min.). @ -None done What testing was considered but not performed or refused? (CT, X-rays, U/S, labs)? Why? @ -None What meds were considered but not given or refused? Why? @ -None Did you discuss the management of the patient with other professionals ( professionals i.e. Dr., PA, [employer], lab, RT, psych nurse, social science analyst, single spindle screw machine operator, teacher, unclaimed property officer, family service caseworker)? Give summary @ -Spoke with some physicians he agreed to admit the patient. I spoke with Dr. Khalil as he came down and saw the patient in the emergency department and agreed to admit Was smoking cessation discussed for >3mins.? @ -No Was critical care preformed (if so, how long)? @ -No Were there social determinants of health that impacted care today? How? (Homelessness, low income, unemployed, alcoholism, drug addiction, transportation, low edu. Level, literacy, decrease access to med. care, fpc, rehab)? @ -No Was there de-escalation of care discussed even if they declined (Discuss DNR or withdrawal of care, Hospice)? DNR status @ -No What co-morbidities impacted this encounter? (DM, HTN, Smoking, COPD, CAD, Cancer, CVA, ARF, Chemo, Hep., AIDS, mental health diagnosis, sleep apnea, morbid obesity)? @ -None Was patient admitted / discharged? Hospital course, mention meds given and route, prescriptions, significant lab abnormalities, going to OR and other pertinent info. @ -Patient eventually came back to baseline and was alert and oriented 4 and only complained of a headache. Patient will be admitted to sound physician's in Dr. Khalil will be consulted. Patient was given 1 g of Tylenol for the headache and 1000 of Keppra Undiagnosed new problem with uncertain prognosis? @ -No Drug Therapy requiring intensive monitoring for toxicity (Heparin, Nitro, Insul in, Cardizem)? @ -No Were any procedures done? @ -No Diagnosis/symptom? @ -Status epilepticus Acute, or Chronic, or Acute on Chronic? @ -Acute Uncomplicated (without systemic symptoms) or Complicated (systemic symptoms)? @ -Complicated Side effects of treatment? @ -No Exacerbation, Progression, or Severe Exacerbation? @ -No Poses a threat to life or bodily function? How? (Chest pain, [place], [place], pneumonia, PE, COPD, DKA, ARF, appy, cholecystitis, CVA, Diverticulitis, Homicidal, Suicidal, threat to staff... and all critical care pts) @ -Yes. - Lab Data Result diagrams: 04/23/23 11:27 04/23/23 11:27 Lab Results 04/23/23 04/23/23 04/23/23 Range/Units 11:27 11: 11:27 WBC 5.4 (3.8-10.6) k/uL RBC 4.42 (4.30-5.90) m/uL Hgb 14.0 (13.0-17.5) gm/dL Hct 41.4 (39.0-53.0) % MCV 93.6 (80.0-100.0) fL MCH 31.7 (25.0-35.0) pg MCHC 33.9 (31.0-37.0) g/dL RDW 13.5 (11.5-15.5) % Plt Count 215 (150-450) k/uL MPV 8.2 Neutrophils % 66 % Lymphocytes % 25 % Monocytes % 7 % Eosinophils % 0 % Basophils % 0 % Neutrophils # 3.5 (1.3-7.7) k/uL Lymphocytes # 1.3 (1.0-4.8) k/uL Monocytes # 0.4 (0-1.0) k/uL Eosinophils # 0.0 (0-0.7) k/uL Basophils # 0.0 (0-0.2) k/uL PT 10.7 (10.0-12.5) sec INR 1.0 (<1.2) APTT 21.8 L (22.0-30.0) sec Sodium (137-145) mmol/L Potassium (3.5-5.1) mmol/L Chloride (98-107) mmol/L Carbon Dioxide (22-30) mmol/L Anion Gap mmol/L BUN (9-20) mg/dL Creatinine (0.66-1.25) mg/dL Est GFR (CKD-EPI)AfAm (>60 ml/min/1.73 sqM) Est GFR (CKD-EPI)NonAf (>60 ml/min/1.73 sqM) Glucose (74-99) mg/dL Calcium (8.4-10.2) mg/dL Total Bilirubin (0.2-1.3) mg/dL AST (17-59) U/L ALT (4-49) U/L Alkaline Phosphatase (38-126) U/L Troponin I (0.000-0.034) ng/mL Total Protein (6.3-8.2) g/dL Albumin (3.5-5.0) g/dL Urine Opiates Screen Not Detected (NotDetected) Ur Oxycodone Screen Not Detected (NotDetected) Urine Methadone Screen Not Detected (NotDetected) Ur Barbiturates Screen Not Detected (NotDetected) U Tricyclic Antidepress Not Detected (NotDetected) Ur Phencyclidine Scrn Not Detected (NotDetected) Ur Amphetamines Screen Not Detected (NotDetected) U Methamphetamines Scrn Not Detected (NotDetected) U Benzodiazepines Scrn Not Detected (NotDetected) Urine Cocaine Screen Not Detected (NotDetected) U Marijuana (THC) Screen Not Detected (NotDetected) Serum Alcohol mg/dL Blood Type Blood Type Recheck Bld Type Recheck Status Antibody Screen Spec Expiration Date 04/23/23 04/23/23 04/23/23 Range/Units 11:27 11:27 11:27 WBC (3.8-10.6) k/uL RBC (4.30-5.90) m/uL Hgb (13.0-17.5) gm/dL Hct (39.0-53.0) % MCV (80.0-100.0) fL MCH (25.0-35.0) pg MCHC (31.0-37.0) g/dL RDW (11.5-15.5) % Plt Count (150-450) k/uL MPV Neutrophils % % Lymphocytes % % Monocytes % % Eosinophils % % Basophils % % Neutrophils # (1.3-7.7) k/uL Lymphocytes # (1.0-4.8) k/uL Monocytes # (0-1.0) k/uL Eosinophils # (0-0.7) k/uL Basophils # (0-0.2) k/uL PT (10.0-12.5) sec INR (<1.2) APTT (22.0-30.0) sec Sodium 135 L (137-145) mmol/L Potassium 4.1 (3.5-5.1) mmol/L Chloride 102 (98-107) mmol/L Carbon Dioxide 18 L (22-30) mmol/L Anion Gap 15 mmol/L BUN 9 (9-20) mg/dL Creatinine 1.01 (0.66-1.25) mg/dL Est GFR (CKD-EPI)AfAm >90 (>60 ml/min/1.73 sqM) Est GFR (CKD-EPI)NonAf 82 (>60 ml/min/1.73 sqM) Glucose 110 H (74-99) mg/dL Calcium 8.6 (8.4-10.2) mg/dL Total Bilirubin 0.3 (0.2-1.3) mg/dL AST 35 (17-59) U/L ALT 25 (4-49) U/L Alkaline Phosphatase 85 (38-126) U/L Troponin I 0.013 (0.000-0.034) ng/mL Total Protein 6.7 (6.3-8.2) g/dL Albumin 4.0 (3.5-5.0) g/dL Urine Opiates Screen (NotDetected) Ur Oxycodone Screen (NotDetected) Urine Methadone Screen (NotDetected) Ur Barbiturates Screen (NotDetected) U Tricyclic Antidepress (NotDetected) Ur Phencyclidine Scrn (NotDetected) Ur Amphetamines Screen (NotDetected) U Methamphetamines Scrn (NotDetected) U Benzodiazepines Scrn (NotDetected) Urine Cocaine Screen (NotDetected) U Marijuana (THC) Screen (NotDetected) Serum Alcohol <10 mg/dL Blood Type A Positive Blood Type Recheck A Pos Bld Type Recheck Status No Antibody Screen NEGATIVE Spec Expiration Date 04/26/20232326 Critical Care Time Critical Care Time: Yes Total Critical Care Time: 35 Disposition Clinical Impression: Status epilepticus Disposition: ADMITTED IP TO THIS [facility] Instructions (If sedation given, give patient instructions): Seizure/Epilepsy Discharge Instructions & Follow-Up Referrals: Aman Smyth MD [Primary Care Provider] - 1-2 days Time of Disposition: 15:04
[2023-04-23 12:45] LABS: Prothrombin Time 10.7 sec (10.0-12.5)
--- NOTE | 2023-04-23 12:47 | XR ---
EXAMINATION TYPE: XR chest 1V portable DATE OF EXAM: 04/23/2023 Comparison: 08/15/2018 Clinical History: 58-year-old male trauma Findings: Low lung volumes and crowded vascular markings. Perihilar densities. No sizable pleural effusion. Lef t chest wall generator device with leads extending to the left base of the neck. Heart is border line to mildly enlarged. Impression: Borderline to mild cardiomegaly. Hypoventilatory changes. Perihilar densities could reflect areas of atelectasis or mild pulmonary vascular congestion.
--- NOTE | 2023-04-23 12:48 | XR ---
EXAMINATION TYPE: XR pelvis AP view DATE OF EXAM: 04/23/2023 Comparison: None Clinical History: 58-year-old male seizure, pain after Trauma Findings: SI joints appear symmetric and intact as do the hips and pubic symphysis. No acute fracture, subluxat ion, dislocation is seen. Impression: No acute osseous abnormality seen.
--- NOTE | 2023-04-23 12:51 | CT ---
EXAMINATION TYPE: CT brain cspine wo con DATE OF EXAM: 04/23/2023 COMPARISON: CT brain October 09, 2022. CT cervical spine August 12, 2022 HISTORY: Fall, seizure CT DLP: 1772.2 mGycm. Automated Exposure Control for Dose Reduction was Utilized. TECHNIQUE: CT scan of the head and cervical spine are performed without contrast. FINDINGS: Redemonstration of right-sided surgical change with right-sided intracranial leads. No acut e intracranial hemorrhage or new midline shift. Mild to moderate ventricular and sulcal prominence re demonstrated. Mild low-attenuation in the periventricular white matter again seen. Right mastoid surg ical change again seen. The paranasal sinuses are grossly clear and the globes are intact bilaterally . Cervical spine is visualized in its entirety from C1 through upper thoracic levels and demonstrates s coliotic curvature or positioning without evidence of acute fracture or dislocation. Prevertebral so ft tissue appears within normal limits. The C1-C2 articulation is within normal limits on the allan l images. Vertebral body heights are maintained. Pucp-ua-zstgcswy spurring and disc space narrowing at C5-C6 and C6-C7 levels is redemonstrated. Lung apices shows azygos lobe/fissure without pneumothor ax. Thyroid gland is normal in size. IMPRESSION: 1. There is no acute fracture or dislocation evident in the cervical spine. 2. No acute intracranial hemorrhage or new midline shift is seen.
[2023-04-23 12:52] LABS: Partial Thromboplastin Time 21.8 sec (22.0-30.0)
[2023-04-23] MEDS ORDERED: levETIRAcetam IV 500 MG/5 ML VIAL IVP STA ×2 (13:51→14:42)
[2023-04-23] MEDS ORDERED: ACETAMINOPHEN TAB 500 MG TAB PO STA (13:51)
[2023-04-23] MEDS ORDERED: MIDAZOLAM 5 MG/0.1 ML MISCELLANE PRN (16:11)
[2023-04-23] MEDS ORDERED: LORazepam 2 MG/ML INJ IV PRN (16:12)
--- NOTE | 2023-04-23 16:19 | P.CNNES ---
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 Patient is at bedside who provides with some of the history. Per the the patient was shoveling the snow and all of a sudden she had a fall and the she check up on him then the stimulator she put him on the side and the patient's her having a seizure of whole-body shake and lasting 2-3 minutes. This occurred around 9:30 AM. Patient also had drooling. He had some postictal confusion. Then later when the EMS came he had another seizure. Patient received the Versed 10mg IM by EMS. Patient is known to our neurology team and he was seen last by our neurology team on 02/01/2023. The patient the follows up with Dr. Grigsby and last appointment was end of 03/2023 in which his RNS setting was increased. Patient did not miss his AED. No fevers or cough recently. He is Keppra 1500mg bid, Lamictal 100mg 1 tab bid, Depakote ER 500mg 2 tab bid, Tegretol 200mg 1/2 tab qam, 1 tab afternoon and 1 tab night. Some of the work-up during this hospital visit consisted of: cbc with diff are unremarkable. Sodium is 135, Glucose is 110, calcium is 8.6, HDL the, BUN creatinine are within normal limits UDS is not detected Valproic acid level is 67.7. Alcohol level <10 CT of the head and CT cervical spine was reported as no acute intracranial hemorrhage or new midline shift is seen. There is no acute fracture or dislocation evident in the cervical spine. I personally reviewed CT head and there is no acute or subacute changes. No bleed. There is artifact from hardware of stimulator. Review of Systems The positive and negative as per HPI. Past Medical History Past Medical History: CVA/TIA, Diabetes Mellitus, Hyperlipidemia, Hypertension, Memory Impairment, Myocardial Infarction ([place]), Seizure Disorder, Sleep Apnea/CPAP/BIPAP Additional Past Medical History / Comment(s): TIA-some slight residual left s ided weakness-resolved, "borderline diabetes"-diet control, no CPAP, has vagus nerve stimulator, hx migraines, epilepsy last seizure 1 month ago, seizures x2 (04/23/23) Last Myocardial Infarction Date:: 2015 History of Any Multi-Drug Resistant Organisms: None Reported Past Surgical History: Adenoidectomy, Ear Surgery, Heart Catheterization, Tonsillectomy Additional Past Surgical History / Comment(s): TUBES IN EARS, VAGUS NERVE STIMULATOR IMPLANT, responsive neuro stimulator placed 2021 Past Anesthesia/Blood Transfusion Reactions: Previous Problems w/ Anesthesia Additional Past Anesthesia/Blood Transfusion Reaction / Comment(s): STATES A LONG TIME TO WAKE UP AFTER ANESTHESIA. Past Psychological History: No Psychological Hx Reported Smoking Status: Never smoker Past Alcohol Use History: None Reported Past Drug Use History: None Reported - Past Family History Brother(s) Family Medical History: Cancer Additional Family Medical History / Comment(s): PROSTATE CANCER WITH METS. Medications and Allergies Home Medications Medication Instructions Recorded Confirmed Type Clopidogrel [Plavix] 75 mg PO DAILY@0800 03/16/17 04/23/23 History Divalproex ER [Depakote ER] 1,000 mg PO BID@08,199905/26/18 04/23/23 History Multivitamins, Thera [Multivitamin 1 tab PO DAILY@139905/26/18 04/23/23 History (formulary)] Niacin (Inositol Niacinate) 500 mg PO DAILY@139905/26/18 04/23/23 History [Niacin 500 mg Capsule] Atorvastatin Calcium [Lipitor] 80 mg PO HS 10/30/19 04/23/23 History Folic Acid 0.8 mg PO DAILY@139910/30/19 04/23/23 History amLODIPine [Norvasc] 2.5 mg PO HS 10/30/19 04/23/23 History Cholecalciferol [Vitamin D3 (125 125 mcg PO DAILY@139907/12/21 04/23/23 History Mcg = 5000 Iu)] Ezetimibe [Zetia] 10 mg PO HS 07/12/21 04/23/23 History Thiamine [Vitamin B-1] 100 mg PO DAILY@1400 07/12/21 04/23/23 History carBAMazepine 100 mg PO DAILY@0800 07/12/21 04/23/23 History carBAMazepine 200 mg PO BID@1399,199907/12/21 04/23/23 History rOPINIRole HCL [Requip] 1 mg PO BID@0800,199909/23/21 04/23/23 History levETIRAcetam [Keppra] 1,000 mg PO BID@0800,199908/12/22 04/23/23 History lamoTRIgine [LaMICtal] 100 mg PO BID@0800,199901/31/23 04/23/23 History Midazolam [Nayzilam] 5 mg NASAL DIRECTED PRN 04/23/23 04/23/23 History levETIRAcetam [Keppra] 500 mg PO BID@0800,199904/23/23 04/23/23 History Allergies Allergy/AdvReac Type Severity Reaction Status Date / Time No Known Allergies Allergy Verified 04/23/23 15:39 Physical Examination - Vital Signs Vital Signs: Vital Signs Temp Pulse Resp BP Pulse Ox 04/23/23 10:56 97.0 F L 82 30 H 99/67 100 Intake and Output 04/23/23 04/23/23 04/23/23 06:59 14:59 22:59 Other: Weight 117.934 kg General: Lying in bed and is not in acute distress. HENT: Supple neck. Old scar on left frontal region. Neuro: The patient is mildly drowsy. Is oriented to self, place and time. Is following simple commands. No aphasia or neglect. Pupils are round, equal and reactive to light. Visual kaur are full to confrontation. EOM intact and no nystagmus. Old mild/subltle left facial weakness. No dysarthria. Motor: Lifting all extremities above gravity equally. Normal tone and bulk. Sensation: Normal to touch. Plantars: Mute bilaterally. 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 He received 10mg IV versed by EMS and currently doing better. Status epilepticus. Possible result of hypoxia from him exertion while shoveling snow---resolved History of medical intractable epilepsy on 4 antiepileptic drug and is on VNS and RNS. He was seen by his neurologist last end of 03/2023 and has RNS setting increased. Diabetes Hypertension Sleep Apnea Obesity Plan: The patient was given a 1gm loading dose by ED and gave him an additiona 500mg. He is home Keppra 1500mg bid and I increased to 2gm bid. I resumed home Lamictal 100mg 1 tab bid, Depakote ER 500mg 2 tab bid, Tegretol 200mg 1/2 tab qam, 1 tab afternoon and 1 tab night. Placed on Ativan 1mg q1 hour PRN. Ordered levels of his antiepileptics. Seizure precaution and pads. No needs for EEG since he is back to baseline and has known history of epilepsy. Recommend the patient to follow-up with his neurologist (Dr. Grigsby) as outpatient within 1-2 weeks. Will defer the rest of medical management to the primary team. The plan is discussed with patient, his who is at bedside, ED team and primary team. I will attempt to contact his outpatient neurologist. Dr. Fischer will resume neurology service tomorrow A.M. UPDATE: I have updated Dr. Grigsby and he is in agreement with the plan. Time with Patient: Greater than 30
--- NOTE | 2023-04-23 17:35 | P.HPIM ---
History of Present Illness H&P Date: 04/23/23 Chief Complaint: seizures The patient is a 56-year-old male with a PMH of seizure disorder, hypertension, hyperlipidemia, and type II DM who presented to the emergency room for seizures. Patient does not provide much history due to being a little bit sleepy, amnestic during my interview. According to chart review, ER provider signout, family was at bedside, patient was found down after being outside shoveling snow. While he was coming into the hospital via ambulance he was noticed to have 2 seizures each lasting about 2 minutes each. Patient is on multiple antiepileptics at home and has been taking them as prescribed. He also has a VNS, followed by neurology at [facility]. Patient denies fevers, chills, nausea, vomiting. Patient denies pain. In the emergency room, patient was afebrile, 128/81, heart rate 74, 100% on nasal cannula. CBC is unremarkable. Basic metabolic panel showed mild hyponatremia to 135, CO2 of 18, anion gap of 15. Liver function tests are unremarkable. Troponins 0.013. Urine tox screen is negative. Alcohol level is less than 10. Valproic acid level was 67.7. Coags are unremarkable. EKG demonstrated normal sinus rhythm with Q waves in inferior leads consistent with old inferior infarction. Chest x-ray showed borderline to mild cardiomegaly with mild pulmonary vascular congestion. Head/cervical spine CT was negative for acute pathology. Pelvis x-ray was negative for fracture. All Systems reviewed and pertinent positives and negatives noted in HPI, all other symptoms are negative Gen: in no apparent distress, resting comfortably in bed Eyes: PERRL, no scleral injection or icterus HENT: normocephalic, atraumatic, good hearing acuity, moist mucous membranes Neck: no tracheal deviation, full range of motion Resp: good air exchange, breathing comfortably with no accessory muscle use, no tactile fremitus CVS: good distal perfusion x 4, no pitting edema GI: soft, NTTP, ND, no hepatosplenomegaly : no suprapubic tenderness, no CVAT, baptiste catheter not present MSK: no clubbing, no cyanosis, no noted contractures of extremities Skin: no noted rashes, petechiae; temperature of skin is appropriate Neuro: moving all extremities without signs of weakness, CN II-XII intact Psych: cooperative, euthymic mood, insight and judgment intact Labs and imaging as above Assessment/plan: Breakthrough seizure -Admit to observation -Neurology consult -Continue seizure medications -Obtain valproic acid, Tegretol, lamotrigine, Keppra level Hypertension Hyperlipidemia Diabetes type 2 -Home medications reviewed and reconciled Patient is full code Past Medical History Past Medical History: CVA/TIA, Diabetes Mellitus, Hyperlipidemia, Hypertension, Memory Impairment, Myocardial Infarction ([place]), Seizure Disorder, Sleep Apnea/CPAP/BIPAP Additional Past Medical History / Comment(s): TIA-some slight residual left sided weakness-resolved, "borderline diabetes"-diet control, no CPAP, has vagus nerve stimulator, hx migraines, epilepsy last seizure 1 month ago, seizures x2 (04/23/23) Last Myocardial Infarction Date:: 2015 History of Any Multi-Drug Resistant Organisms: None Reported Past Surgical History: Adenoidectomy, Ear Surgery, Heart Catheterization, Tonsillectomy Additional Past Surgical History / Comment(s): TUBES IN EARS, VAGUS NERVE S TIMULATOR IMPLANT, responsive neuro stimulator placed 2021 Past Anesthesia/Blood Transfusion Reactions: Previous Problems w/ Anesthesia Additional Past Anesthesia/Blood Transfusion Reaction / Comment(s): STATES A LONG TIME TO WAKE UP AFTER ANESTHESIA. Past Psychological History: No Psychological Hx Reported Smoking Status: Never smoker Past Alcohol Use History: None Reported Past Drug Use History: None Reported - Past Family History Brother(s) Family Medical History: Cancer Additional Family Medical History / Comment(s): PROSTATE CANCER WITH METS. Medications and Allergies Home Medications Medication Instructions Recorded Confirmed Type Clopidogrel [Plavix] 75 mg PO DAILY@0800 03/16/17 04/23/23 History Divalproex ER [Depakote ER] 1,000 mg PO BID@0800,199905/26/18 04/23/23 History Multivitamins, Thera [Multivitamin 1 tab PO DAILY@1400 05/26/18 04/23/23 History (formulary)] Niacin (Inositol Niacinate) 500 mg PO DAILY@1400 05/26/18 04/23/23 History [Niacin 500 mg Capsule] Atorvastatin Calcium [Lipitor] 80 mg PO HS 10/30/19 04/23/23 History Folic Acid 0.8 mg PO DAILY@1400 10/30/19 04/23/23 History amLODIPine [Norvasc] 2.5 mg PO HS 10/30/19 04/23/23 History Cholecalciferol [Vitamin D3 (125 125 mcg PO DAILY@1400 07/12/21 04/23/23 History Mcg = 5000 Iu)] Ezetimibe [Zetia] 10 mg PO HS 07/12/21 04/23/23 History Thiamine [Vitamin B-1] 100 mg PO DAILY@1400 07/12/21 04/23/23 History carBAMazepine 100 mg PO DAILY@0800 07/12/21 04/23/23 History carBAMazepine 200 mg PO BID@1400,199907/12/21 04/23/23 History rOPINIRole HCL [Requip] 1 mg PO BID@0800,199909/23/21 04/23/23 History levETIRAcetam [Keppra] 1,000 mg PO BID@0800,199908/12/22 04/23/23 History lamoTRIgine [LaMICtal] 100 mg PO BID@0800,199901/31/23 04/23/23 History Midazolam [Nayzilam] 5 mg NASAL DIRECTED PRN 04/23/23 04/23/23 History levETIRAcetam [Keppra] 500 mg PO BID@0800,199904/23/23 04/23/23 History Allergies Allergy/AdvReac Type Severity Reaction Status Date / Time No Known Allergies Allergy Verified 04/23/23 15:39 Physical Exam Osteopathic Statement: *. No significant issues noted on an osteopathic structural exam other than those noted in the History and Physical/Consult. Vitals: Vital Signs Temp Pulse Resp BP Pulse Ox 04/23/23 17:14 98.2 F 79 20 106/68 96 04/23/23 17:00 70 17 107/76 96 04/23/23 16:30 71 22 119/78 96 04/23/23 16:00 67 18 114/71 94 L 04/23/23 15:30 76 20 111/77 96 04/23/23 15:00 76 10 L 129/78 96 04/23/23 14:30 79 13 131/81 96 04/23/23 14:00 79 21 141/94 94 L 04/23/23 13:30 80 19 122/84 100 04/23/23 13:00 78 17 133/81 100 04/23/23 12:00 74 18 128/81 100 04/23/23 11:30 101 H 17 124/95 96 04/23/23 11:00 82 30 H 115/83 100 04/23/23 10:56 97.0 F L 82 30 H 99/67 100 Intake and Output 04/23/23 04/23/23 04/23/23 06:59 14:59 22:59 Other: Weight 117.934 kg Results CBC & Chem 7: 04/23/23 11:27 04/23/23 11:27 Labs: Abnormal Lab Results - Last 24 Hours (Table) 04/23/23 04/23/23 Range/Units 11:27 11:27 APTT 21.8 L (22.0-30.0) sec Sodium 135 L (137-145) mmol/L Carbon Dioxide 18 L (22-30) mmol/L Glucose 110 H (74-99) mg/dL
[2023-04-23] MEDS: carBAMazepine 200 MG TAB PO SCH (20:24)
[2023-04-23] MEDS: DIVALPROEX ER 500 MG TAB.ER.24H PO SCH (20:25)
[2023-04-23] MEDS: levETIRAcetam 500 MG TAB PO SCH (20:25)
[2023-04-23] MEDS: lamoTRIgine 100 MG TAB PO SCH (20:25)
[2023-04-23] MEDS ORDERED: levETIRAcetam 500 MG TAB PO SCH (21:00)
[2023-04-23] MEDS ORDERED: DIVALPROEX ER 500 MG TAB.ER.24H PO SCH (21:00)
[2023-04-23] MEDS ORDERED: lamoTRIgine 100 MG TAB PO SCH (21:00)
[2023-04-24] MEDS: DIVALPROEX ER 500 MG TAB.ER.24H PO SCH ×2 (09:28→21:16)
[2023-04-24] MEDS: lamoTRIgine 100 MG TAB PO SCH ×2 (09:28→21:16)
[2023-04-24] MEDS: levETIRAcetam 500 MG TAB PO SCH ×2 (09:28→21:15)
[2023-04-24] MEDS: carBAMazepine 200 MG TAB PO SCH ×3 (09:29→21:16)
--- NOTE | 2023-04-24 13:23 | P.DS ---
Providers Date of admission: 04/23/23 15:05 Expected date of discharge: 04/24/23 Attending physician: Tisha Dyer MD Consults: 04/23/23 15:05 Consult Physician Urgent Consulting Provider: Brian Esparza Consult Reason/Comments: Status epilepticus Do you want consulting provider notified?: Yes Primary care physician: Aman Kimo [facility] Hospital Course: Breakthrough seizure Hypertension Hyperlipidemia Diabetes type 2 Hospital Course: The patient is a 56-year-old male with a PMH of seizure disorder, hypertension, hyperlipidemia, and type II DM who presented to the emergency room for seizures. In the emergency room, patient was afebrile, 128/81, heart rate 74, 100% on nasal cannula. CBC is unremarkable. Basic metabolic panel showed mild hyponatremia to 135, CO2 of 18, anion gap of 15. Liver function tests are unremarkable. Troponins 0.013. Urine tox screen is negative. Alcohol level is less than 10. Valproic acid level was 67.7. Coags are unremarkable. EKG demonstrated normal sinus rhythm with Q waves in inferior leads consistent with old inferior infarction. Chest x-ray showed borderline to mild cardiomegaly with mild pulmonary vascular congestion. Head/cervical spine CT was negative for acute pathology. Pelvis x-ray was negative for fracture. Neurology evaluated patient and increased his keppra to 2000mg BID from 1500mg BID. His carbamazepine and valproic levels were therapeutic. Pt was discharged home with instructions to f/u with his Neurologist Dr. Grigsby next week to evaluate his VNS settings. I spent 31 min coordinating this discharge on 04/24 Gen: in no apparent distress, resting comfortably in bed Eyes: PERRL, no scleral injection or icterus HENT: normocephalic, atraumatic, good hearing acuity, moist mucous membranes Neck: no tracheal deviation, full range of motion Resp: good air exchange, breathing comfortably with no accessory muscle use, no tactile fremitus CVS: good distal perfusion x 4, no pitting edema GI: soft, NTTP, ND, no hepatosplenomegaly : no suprapubic tenderness, no CVAT, baptiste catheter not present MSK: no clubbing, no cyanosis, no noted contractures of extremities Skin: no noted rashes, petechiae; temperature of skin is appropriate Neuro: moving all extremities without signs of weakness, CN II-XII intact Psych: cooperative, euthymic mood, insight and judgment intact Patient Condition at Discharge: Good Plan - Discharge Summary Discharge Rx Participant: No New Discharge Prescriptions: Continue Clopidogrel [Plavix] 75 mg PO DAILY@0800 Divalproex ER [Depakote ER] 1,000 mg PO BID@799,1999 Niacin (Inositol Niacinate) [Niacin 500 mg Capsule] 500 mg PO DAILY@1400 Multivitamins, Thera [Multivitamin (formulary)] 1 tab PO DAILY@1400 amLODIPine [Norvasc] 2.5 mg PO HS Atorvastatin Calcium [Lipitor] 80 mg PO HS Folic Acid 0.8 mg PO DAILY@1400 Thiamine [Vitamin B-1] 100 mg PO DAILY@1400 Cholecalciferol [Vitamin D3 (125 Mcg = 5000 Iu)] 125 mcg PO DAILY@1400 lamoTRIgine [LaMICtal] 100 mg PO BID@799,1999 Midazolam [Nayzilam] 5 mg NASAL DIRECTED PRN PRN Reason: Seizures Ezetimibe [Zetia] 10 mg PO HS carBAMazepine 200 mg PO BID@1399,1999 carBAMazepine 100 mg PO DAILY@0800 rOPINIRole HCL [Requip] 1 mg PO BID@799,1999 Changed levETIRAcetam [Keppra] 2,000 mg PO BID@ #120 tab Discontinued levETIRAcetam [Keppra] 500 mg PO BID@ Discharge Medication List Clopidogrel [Plavix] 75 mg PO DAILY@0800 03/16/17 [History] Divalproex ER [Depakote ER] 1,000 mg PO BID@08,199905/26/18 [History] Multivitamins, Thera [Multivitamin (formulary)] 1 tab PO DAILY@1400 05/26/18 [History] Niacin (Inositol Niacinate) [Niacin 500 mg Capsule] 500 mg PO DAILY@139905/26/18 [History] Atorvastatin Calcium [Lipitor] 80 mg PO HS 10/30/19 [History] Folic Acid 0.8 mg PO DAILY@1400 10/30/19 [History] amLODIPine [Norvasc] 2.5 mg PO HS 10/30/19 [History] Cholecalciferol [Vitamin D3 (125 Mcg = 5000 Iu)] 125 mcg PO DAILY@1400 07/12/21 [History] Ezetimibe [Zetia] 10 mg PO HS 07/12/21 [History] Thiamine [Vitamin B-1] 100 mg PO DAILY@1400 07/12/21 [History] carBAMazepine 100 mg PO DAILY@0800 07/12/21 [History] carBAMazepine 200 mg PO BID@1399,199907/12/21 [History] rOPINIRole HCL [Requip] 1 mg PO BID@0800,199909/23/21 [History] lamoTRIgine [LaMICtal] 100 mg PO BID@799,199901/31/23 [History] Midazolam [Nayzilam] 5 mg NASAL DIRECTED PRN 04/23/23 [History] levETIRAcetam [Keppra] 2,000 mg PO BID@799,1999 #120 tab 04/24/23 [Rx] Follow up Appointment(s)/Referral(s): Aman Smyth MD [Primary Care Provider] - 1-2 days Jerad Grigsby MD [STAFF PHYSICIAN] - 1 Week Patient Instructions/Handouts: Seizure/Epilepsy Discharge Instructions & Follow-Up Discharge Disposition: HOME SELF-CARE
[2023-04-24] MEDS ORDERED: FOLIC ACID 1 MG TAB PO SCH (14:00)
[2023-04-24] MEDS ORDERED: THIAMINE 100 MG TAB PO SCH (14:00)
--- NOTE | 2023-04-24 14:54 | P.PN ---
Subjective Progress Note Date: 04/24/23 The pt is a 58 y/o male who is seen in neurologic follow up on 2023, in collaboration with Ema Cox, via teleneurology. The chart has been reviewed. The pt has a history of poorly controlled seizures and frequent break thru seizures. The pt presented to the ER with 2 reported seizures occurring at home. There was concern for status epilepticus. When neurology arrived in the ER, the pt was reportedly back to his baseline. This am, per nursing report: "Patient hit call light and medical underwriter answered at 0535. Patient was muttering incomprehensible speech and then stated, "seizure." Electronic Gluer asked the patient if he felt like he was going to have a seizure and the patient replied, "yes." Electronic Gluer administered prn ativan at 0537. Patient never lost consciousness but medical underwriter did notice slight tremors and jerking movements to patient's extremities. Patient appears to currently be in a postictal state. He is oriented to person and knows he is in a hospital but is unable to state the current year. He is still awake but drowsy at this time" The pt states that he does not recall having a seizure this am. Objective - Vital Signs Vital signs: Vital Signs Temp 97.6 F 04/24/23 14:25 Pulse 79 04/24/23 14:25 Resp 14 04/24/23 14:25 BP 130/76 04/24/23 14:25 Pulse Ox 97 04/24/23 14:25 FiO2 Intake & Output 04/23/23 04/24/23 04/24/23 18:59 06:59 18:59 Intake Total 222 Output Total 200 Balance 22 Weight 117.934 kg 117.934 kg Intake: Oral 222 Output: Urine 200 Other: Voiding Method Toilet # Voids 1 - Exam General: The pt is reclining in the bed. He is in no distress HEENT: atraumatic, normocephalic. Mental status: The pt is sleepy(?). He is slow to answer questions. He is oriented. Speech is clear. 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 He received 10mg IV versed by EMS and currently doing better. Status epilepticus. Possible result of hypoxia from him exertion while shoveling snow---resolved History of medical intractable epilepsy on 4 antiepileptic drug and is on VNS and RNS. He was seen by his neurologist last end of 03/2023 and has RNS setting increased. Diabetes Hypertension Sleep Apnea Obesity Plan: 1. The pt is neurologically stable for discharge later in the morning or day, when he is more awake and alert 2. Hold discharge is more seizures occur 3. Pt should call his neurologist for a appointment Time with Patient: Less than 30
[2023-04-25 07:37] VITALS: BP 129/84; PULSE 77; RESP 14; TEMP 97.6
[2023-04-25] MEDS: levETIRAcetam 500 MG TAB PO SCH (09:15)
[2023-04-25] MEDS: carBAMazepine 200 MG TAB PO SCH (09:16)
[2023-04-25] MEDS: lamoTRIgine 100 MG TAB PO SCH (09:16)
[2023-04-25] MEDS: DIVALPROEX ER 500 MG TAB.ER.24H PO SCH (09:17)
--- NOTE | 2023-04-25 09:46 | P.DS ---
Providers Date of admission: 04/23/23 15:05 Expected date of discharge: 04/25/23 Attending physician: Tisha Dyer MD Consults: 04/23/23 15:05 Consult Physician Urgent Consulting Provider: Brian Esparza Consult Reason/Comments: Status epilepticus Do you want consulting provider notified?: Yes Primary care physician: Aman Kimo [facility] Course: Breakthrough seizure Hypertension Hyperlipidemia Diabetes type 2 Hospital Course: The patient is a 56-year-old male with a PMH of seizure disorder, hypertension, hyperlipidemia, and type II DM who presented to the emergency room for seizures. In the emergency room, patient was afebrile, 128/81, heart rate 74, 100% on nasal cannula. CBC is unremarkable. Basic metabolic panel showed mild hyponatremia to 135, CO2 of 18, anion gap of 15. Liver function tests are unremarkable. Troponins 0.013. Urine tox screen is negative. Alcohol level is less than 10. Valproic acid level was 67.7. Coags are unremarkable. EKG demonstrated normal sinus rhythm with Q waves in inferior leads consistent with old inferior infarction. Chest x-ray showed borderline to mild cardiomegaly with mild pulmonary vascular congestion. Head/cervical spine CT was negative for acute pathology. Pelvis x-ray was negative for fracture. Neurology evaluated patient and increased his keppra to 2000mg BID from 1500mg BID. His carbamazepine and valproic levels were therapeutic. Pt was discharged home with instructions to f/u with his Neurologist Dr. Grigsby next week to evaluate his VNS settings. Pt had to remain one additional night due to unsteadiness of gait and some confusion from his ativan dose the night prior. On day of discharge, he was back to baseline. I spent 33 min coordinating this discharge on 04/25 Gen: in no apparent distress, resting comfortably in bed Eyes: PERRL, no scleral injection or icterus HENT: normocephalic, atraumatic, good hearing acuity, moist mucous membranes Neck: no tracheal deviation, full range of motion Resp: good air exchange, breathing comfortably with no accessory muscle use, no tactile fremitus CVS: good distal perfusion x 4, no pitting edema GI: soft, NTTP, ND, no hepatosplenomegaly : no suprapubic tenderness, no CVAT, baptiste catheter not present MSK: no clubbing, no cyanosis, no noted contractures of extremities Skin: no noted rashes, petechiae; temperature of skin is appropriate Neuro: moving all extremities without signs of weakness, CN II-XII intact Psych: cooperative, euthymic mood, insight and judgment intact Patient Condition at Discharge: Good Plan - Discharge Summary Discharge Rx Participant: No New Discharge Prescriptions: Continue Clopidogrel [Plavix] 75 mg PO DAILY@0800 Divalproex ER [Depakote ER] 1,000 mg PO BID@799,1999 Niacin (Inositol Niacinate) [Niacin 500 mg Capsule] 500 mg PO DAILY@1400 Multivitamins, Thera [Multivitamin (formulary)] 1 tab PO DAILY@1400 amLODIPine [Norvasc] 2.5 mg PO HS Atorvastatin Calcium [Lipitor] 80 mg PO HS Folic Acid 0.8 mg PO DAILY@1400 Thiamine [Vitamin B-1] 100 mg PO DAILY@1400 Cholecalciferol [Vitamin D3 (125 Mcg = 5000 Iu)] 125 mcg PO DAILY@1400 lamoTRIgine [LaMICtal] 100 mg PO BID@ Midazolam [Nayzilam] 5 mg NASAL DIRECTED PRN PRN Reason: Seizures Ezetimibe [Zetia] 10 mg PO HS carBAMazepine 200 mg PO BID@ carBAMazepine 100 mg PO DAILY@08 rOPINIRole HCL [Requip] 1 mg PO BID@ Changed levETIRAcetam [Keppra] 2,000 mg PO BID@799,1999 #120 tab Discontinued levETIRAcetam [Keppra] 500 mg PO BID@ Discharge Medication List Clopidogrel [Plavix] 75 mg PO DAILY@0800 03/16/17 [History] Divalproex ER [Depakote ER] 1,000 mg PO BID@08,199905/26/18 [History] Multivitamins, Thera [Multivitamin (formulary)] 1 tab PO DAILY@139905/26/18 [History] Niacin (Inositol Niacinate) [Niacin 500 mg Capsule] 500 mg PO DAILY@1400 05/26/18 [History] Atorvastatin Calcium [Lipitor] 80 mg PO HS 10/30/19 [History] Folic Acid 0.8 mg PO DAILY@1400 10/30/19 [History] amLODIPine [Norvasc] 2.5 mg PO HS 10/30/19 [History] Cholecalciferol [Vitamin D3 (125 Mcg = 5000 Iu)] 125 mcg PO DAILY@1400 07/12/21 [History] Ezetimibe [Zetia] 10 mg PO HS 07/12/21 [History] Thiamine [Vitamin B-1] 100 mg PO DAILY@1400 07/12/21 [History] carBAMazepine 100 mg PO DAILY@0800 07/12/21 [History] carBAMazepine 200 mg PO BID@1399,199907/12/21 [History] rOPINIRole HCL [Requip] 1 mg PO BID@08,199909/23/21 [History] lamoTRIgine [LaMICtal] 100 mg PO BID@799,199901/31/23 [History] Midazolam [Nayzilam] 5 mg NASAL DIRECTED PRN 04/23/23 [History] levETIRAcetam [Keppra] 2,000 mg PO BID@799,1999 #120 tab 04/24/23 [Rx] Follow up Appointment(s)/Referral(s): Aman Smyth MD [Primary Care Provider] - 1-2 days Jerad Grigsby MD [STAFF PHYSICIAN] - 1 Week Patient Instructions/Handouts: Seizure/Epilepsy Discharge Instructions & Follow-Up Discharge Disposition: HOME SELF-CARE
--- NOTE | 2023-04-25 09:48 | P.PN ---
Subjective Progress Note Date: 04/24/23 Pt still a little confused and unsteady from ativan dose this morning. Potentially had one seizure overnight, but he remained conscious throughout while all 4 extremities jerked. tegretol and valproic acid levels are in therapeutic range. Gen: in no apparent distress, resting comfortably in bed Eyes: PERRL, no scleral injection or icterus HENT: normocephalic, atraumatic, good hearing acuity, moist mucous membranes Neck: no tracheal deviation, full range of motion Resp: good air exchange, breathing comfortably with no accessory muscle use, no tactile fremitus CVS: good distal perfusion x 4, no pitting edema GI: soft, NTTP, ND, no hepatosplenomegaly : no suprapubic tenderness, no CVAT, baptiste catheter not present MSK: no clubbing, no cyanosis, no noted contractures of extremities Skin: no noted rashes, petechiae; temperature of skin is appropriate Neuro: moving all extremities without signs of weakness, CN II-XII intact Psych: cooperative, euthymic mood, insight and judgment intact Hospital Course: The patient is a 56-year-old male with a PMH of seizure disorder, hypertension, hyperlipidemia, and type II DM who presented to the emergency room for seizures. In the emergency room, patient was afebrile, 128/81, heart rate 74, 100% on nasal cannula. CBC is unremarkable. Basic metabolic panel showed mild hyponatremia to 135, CO2 of 18, anion gap of 15. Liver function tests are un remarkable. Troponins 0.013. Urine tox screen is negative. Alcohol level is less than 10. Valproic acid level was 67.7. Coags are unremarkable. EKG demonstrated normal sinus rhythm with Q waves in inferior leads consistent with old inferior infarction. Chest x-ray showed borderline to mild cardiomegaly with mild pulmonary vascular congestion. Head/cervical spine CT was negative for acute pathology. Pelvis x-ray was negative for fracture. Assessment/plan: Breakthrough seizure -Admit to observation -Neurology consult -Continue seizure medications -Obtain valproic acid, Tegretol, lamotrigine, Keppra level Hypertension Hyperlipidemia Diabetes type 2 -Home medications reviewed and reconciled Patient is full code Objective - Vital Signs Vital signs: Vital Signs Temp 97.6 F 04/25/23 07:00 Pulse 77 04/25/23 07:00 Resp 14 04/25/23 07:00 BP 129/84 04/25/23 07:00 Pulse Ox 96 04/25/23 09:23 FiO2 21 04/25/23 09:23 Intake & Output 04/24/23 04/25/23 04/25/23 18:59 06:59 18:59 Intake Total 222 Output Total 200 Balance 22 Intake: Oral 222 Output: Urine 200 Other: Voiding Method Toilet # Voids 2 # Bowel Movements 1 - Labs CBC & Chem 7: 04/23/23 11:27 04/23/23 11:27
[2023-04-26 07:05] LABS: Levetiracetam (Keppra) 51.3 ug/mL (3.0-60.0)
[2023-04-26 10:23] LABS: Lamotrigine (Lamictal) 4.3 ug/mL (2.0-15.0)
[2023-04-26 13:01] LABS: Carbamazepine Free 2.1 ug/mL (0.9-3.8)
== END 2023-04-25 10:43 | disposition home or self-care (01) ==
LOC: EC 10:45 → 6NMEDSUR 15:05
PROVIDERS: ADMIT Internal Medicine; ATTEND Internal Medicine
DX: G40.911 Epilepsy, unspecified, intractable, with status epilepticus (principal); I10 Essential (primary) hypertension; E78.5 Hyperlipidemia, unspecified; I25.2 Old myocardial infarction; E11.9 Type 2 diabetes mellitus without complications; E66.9 Obesity, unspecified; E87.1 Hypo-osmolality and hyponatremia; G47.33 Obstructive sleep apnea (adult) (pediatric); Z79.02 Long term (current) use of antithrombotics/antiplatelets; Z79.899 Other long term (current) drug therapy; Z86.73 Personal history of transient ischemic attack (TIA), and cerebral infarction without residual deficits
CPT/HCPCS: 96365; 99285; 36415; 94760; 93005; 86900; 86901; 80161; 80156; 80164; 80053; 80175; 80157; 80177; 84484; 85025; 85610; 85730; 86850; 80306; 80320; 72170; 71045; 72125; 70450; G0378 ×3; J2060; J1953

== ENCOUNTER 2023-10-11 16:09 | Observation (INO) | payer OTHER, MEDICARE ==
[2023-10-11 16:34] LABS: Glucose,Whole Blood 148 mg/dL (70-110)
--- NOTE | 2023-10-11 16:34 | ED ---
General Adult HPI - General Chief complaint: Seizure Stated complaint: Seizure Time Seen by Provider: 10/11/23 16:11 Source: EMS Mode of arrival: EMS - History of Present Illness Initial comments: Dictation was produced using [employer] dictation software. please excuse any grammatical, word or spelling errors. Chief Complaint: 58-year-old male past medical history of seizure disorder presents to the ER after multiple seizures History of Present Illness: Patient is a 58-year-old male he has past medical history of seizure disorder he was at [facility] when he had a seizure. EMS was called to the store. Allegedly had another seizure and was given 10 mg Versed IM by EMS. Patient takes unknown seizure medications. Unable to obtain ROS secondary to mental status - Related Data Home Medications Medication Instructions Recorded Confirmed Clopidogrel [Plavix] 75 mg PO DAILY@0800 03/16/17 04/23/23 Divalproex ER [Depakote ER] 1,000 mg PO BID@0800,199905/26/18 04/23/23 Multivitamins, Thera [Multivitamin 1 tab PO DAILY@139905/26/18 04/23/23 (formulary)] Niacin (Inositol Niacinate) 500 mg PO DAILY@139905/26/18 04/23/23 [Niacin 500 mg Capsule] Atorvastatin Calcium [Lipitor] 80 mg PO HS 10/30/19 04/23/23 Folic Acid 0.8 mg PO DAILY@139910/30/19 04/23/23 amLODIPine [Norvasc] 2.5 mg PO HS 10/30/19 04/23/23 Cholecalciferol [Vitamin D3 (125 125 mcg PO DAILY@139907/12/21 04/23/23 Mcg = 5000 Iu)] Ezetimibe [Zetia] 10 mg PO HS 07/12/21 04/23/23 Thiamine [Vitamin B-1] 100 mg PO DAILY@139907/12/21 04/23/23 carBAMazepine 100 mg PO DAILY@0800 07/12/21 04/23/23 carBAMazepine 200 mg PO BID@1399,199907/12/21 04/23/23 rOPINIRole HCL [Requip] 1 mg PO BID@0800,199909/23/21 04/23/23 lamoTRIgine [LaMICtal] 100 mg PO BID@0800,01/31/23 01/19/24 Midazolam [Nayzilam] 5 mg NASAL DIRECTED PRN 04/23/23 04/23/23 Previous Rx's Medication Instructions Recorded levETIRAcetam [Keppra] 2,000 mg PO BID@799,1999 #120 tab 04/24/23 Allergies Allergy/AdvReac Type Severity Reaction Status Date / Time No Known Allergies Allergy Verified 04/23/23 15:39 Review of Systems ROS Statement: Those systems with pertinent positive or pertinent negative responses have been documented in the HPI. ROS Other: All systems not noted in ROS Statement are negative. Past Medical History Past Medical History: CVA/TIA, Diabetes Mellitus, Hyperlipidemia, Hypertension, Memory Impairment, Myocardial Infarction ([place]), Seizure Disorder, Sleep Apnea/CPAP/BIPAP Additional Past Medical History / Comment(s): TIA-some slight residual left sided weakness-resolved, "borderline diabetes"-diet control, no CPAP, has vagus nerve stimulator, hx migraines, epilepsy last seizure 1 month ago, seizures x2 (04/23/23) Last Myocardial Infarction Date:: 2015 History of Any Multi-Drug Resistant Organisms: None Reported Past Surgical History: Adenoidectomy, Ear Surgery, Heart Catheterization, Tonsillectomy Additional Past Surgical History / Comment(s): TUBES IN EARS, VAGUS NERVE STIMULATOR IMPLANT, responsive neuro stimulator placed 2021 Past Anesthesia/Blood Transfusion Reactions: Previous Problems w/ Anesthesia Additional Past Anesthesia/Blood Transfusion Reaction / Comment(s): STATES A LONG TIME TO WAKE UP AFTER ANESTHESIA. Past Psychological History: No Psychological Hx Reported Smoking Status: Never smoker Past Alcohol Use History: None Reported Past Drug Use History: None Reported - Past Family History Brother(s) Family Medical History: Cancer Additional Family Medical History / Comment(s): prostate CA with mets General Exam - General Exam Comments Initial Comments: PHYSICAL EXAM: General Impression: Sonorous, snoring HEENT: Normocephalic atraumatic, extra-ocular movements intact, pupils equal and reactive to light bilaterally, mucous membranes moist. Cardiovascular: Heart regular rate and rhythm Chest: no retractions, no tachypnea Abdomen: abdomen soft, non-tender, non-distended, no organomegaly Musculoskeletal: Pulses present and equal in all extremities, no peripheral edema Motor: No hyperreflexia Neurological: Postictal versus benzodiazepine sedated Skin: Intact with no visualized rashes Course Vital Signs 10/11/23 10/11/23 10/11/23 16:15 16:48 17:00 Temperature 98.1 F Pulse Rate 89 88 91 Respiratory 22 22 22 Rate Blood Pressure 133/88 120/96 138/83 O2 Sat by Pulse 96 95 97 Oximetry - Reevaluation(s) Reevaluation #1: 10/11/23 17:52 Case discussed with on-call neurologist, Dr. Denson at 5:50 PM. He is agreeable that patient is amenable for hospital admission at our facility despite patient clinically by definition having status epilepticus. Dr. Son does not request we give him any medications and that instead we should check his seizure medi cation levels. Medical Decision Making - Medical Decision Making Was pt. sent in by a medical professional or institution (, PA, UTILITY SYSTEM REPAIRER, urgent care, hospital, or senior living...) When possible be specific @ -No Did you speak to anyone other than the patient for history (EMS, parent, family, police, friend...)? What history was obtained from this source @ -Some history obtained from EMS along with as described above Did you review nursing and triage notes (agree or disagree)? Why? @ -I reviewed and agree with nursing and triage notes Were old charts reviewed (outside hosp., previous admission, EMS record, old EKG, old radiological studies, urgent care reports/EKG's, senior living records)? Report findings @ -No old charts were reviewed Differential Diagnosis (chest pain, altered mental status, abdominal pain women, abdominal pain men, vaginal bleeding, musculoskeletal, weakness, fever, dyspnea, syncope, headache, dizziness, GI bleed, back pain, seizure, CVA, palpatations, mental health)? @ -Differential Seizure: Recurrent seizure disorder, febrile seizure, alcohol withdrawal, stimulants, meningitis, encephalitis, intercranial hemorrhage, intracranial tumor, stroke, eclampsia, thyrotoxicosis, hypocalcemia, hyponatremia, hypernatremia, hypomagnesemia, psychogenic, this is not meant to be an all-inclusive list. EKG interpreted by me (3pts min.). @ -My EKG interpretation: Ventricular rate 92, sinus rhythm,. 172, QRS 105, QTc 404. No SC prolongation, no QTC prolongation, no ST or T-wave changes noted. Overall, this EKG is unremarkable X-rays interpreted by me (1pt min.). @ -None done CT interpreted by me (1pt min.). @ -CT brain is unremarkable for any acute processes U/S interpreted by me (1pt. min.). @ -None done What testing was considered but not performed or refused? (CT, X-rays, U/S, labs)? Why? @ -None What meds were considered but not given or refused? Why? @ -None Was smoking cessation discussed for >3mins.? @ -No Were there social determinants of health that impacted care today? How? (Homelessness, low income, unemployed, alcoholism, drug addiction, transportation, low edu. Level, literacy, decrease access to med. care, retirement, rehab)? @ -No Was there de-escalation of care discussed even if they declined (Discuss DNR or withdrawal of care, Hospice)? DNR status @ -No What co-morbidities impacted this encounter? (DM, HTN, Smoking, COPD, CAD, Cancer, CVA, ARF, Chemo, Hep., AIDS, mental health diagnosis, sleep apnea, morbid obesity)? @ -Seizure disorder Was patient admitted / discharged? Hospital course, mention meds given and route, prescriptions, significant lab abnormalities, going to OR and other pertinent info. @ -58-year-old male presents emergency department with status epilepticus. He had 2 seizures within the span of approximately 30 minutes according to EMS. Vital signs stable. Patient initially was given 10 mg of Versed. He was sleepy or postictal upon initial evaluation. Vital signs stable. Laboratory evaluation obtained. Labs are within acceptable limits. CT brain is negative. Patient reevaluated at 6:00 PM found to be alert oriented x 4. He is well- appearing. Case discussed with neurology as described above. Patient will be admitted here. Case discussed with Dr. Spears for hospital admission. Did you discuss the management of the patient with other professionals (professionals i.e. , PA, UTILITY SYSTEM REPAIRER, lab, RT, psych nurse, clinical social worker, reports analysis manager, teacher, fire officer, case management associate)? Give summary @ -See above Was critical care preformed (if so, how long)? @ -Yes, 33 minutes for status epilepticus Undiagnosed new problem with uncertain prognosis? @ -No Drug Therapy requiring intensive monitoring for toxicity (Heparin, Nitro, Insulin, Cardizem)? @ -No Were any procedures done? @ -No Diagnosis/symptom? Acute, or Chronic, or Acute on Chronic? Uncomplicated (without systemic symptoms) or Complicated (systemic symptoms)? @ -Status epilepticus Side effects of treatment? @ -No Exacerbation, Progression, or Severe Exacerbation? @ -No Poses a threat to life or bodily function? How? (Chest pain, [place], [place], pneumonia, PE, COPD, DKA, ARF, appy, cholecystitis, CVA, Diverticulitis, Homicidal, Suicidal, threat to staff... and all critical care pts) @ -yes - Lab Data Result diagrams: 10/11/23 16:15 10/11/23 16:15 Lab Results 10/11/23 10/11/23 10/11/23 Range/Units 16:15 16:15 16:15 WBC 6.1 (3.8-10.6) k/uL RBC 4.30 (4.30-5.90) m/uL Hgb 13.2 (13.0-17.5) gm/dL Hct 40.6 (39.0-53.0) % MCV 94.6 (80.0-100.0) fL MCH 30.7 (25.0-35.0) pg MCHC 32.4 (31.0-37.0) g/dL RDW 13.1 (11.5-15.5) % Plt Count 219 (150-450) k/uL MPV 7.9 Neutrophils % 70 % Lymphocytes % 20 % Monocytes % 7 % Eosinophils % 1 % Basophils % 0 % Neutrophils # 4.3 (1.3-7.7) k/uL Lymphocytes # 1.2 (1.0-4.8) k/uL Monocytes # 0.4 (0-1.0) k/uL Eosinophils # 0.1 (0-0.7) k/uL Basophils # 0.0 (0-0.2) k/uL Sodium 132 L (137-145) mmol/L Potassium 4.2 (3.5-5.1) mmol/L Chloride 100 (98-107) mmol/L Carbon Dioxide 23 (22-30) mmol/L Anion Gap 9 mmol/L BUN 12 (9-20) mg/dL Creatinine 0.81 (0.66-1.25) mg/dL Est GFR (CKD-EPI)AfAm >90 (>60 ml/min/1.73 sqM) Est GFR (CKD-EPI)NonAf >90 (>60 ml/min/1.73 sqM) Glucose 143 H (74-99) mg/dL POC Glucose (mg/dL) (70-110) mg/dL POC Glu Depilatory Painter ID Plasma Lactic Acid Amrit 3.9 H* (0.7-2.0) mmol/L Calcium 8.7 (8.4-10.2) mg/dL Magnesium 1.7 (1.6-2.3) mg/dL Total Bilirubin 0.5 (0.2-1.3) mg/dL AST 36 (17-59) U/L ALT 20 (4-49) U/L Alkaline Phosphatase 57 (38-126) U/L Total Protein 6.5 (6.3-8.2) g/dL Albumin 3.9 (3.5-5.0) g/dL Serum Alcohol <10 mg/dL 10/11/23 Range/Units 16:23 WBC (3.8-10.6) k/uL RBC (4.30-5.90) m/uL Hgb (13.0-17.5) gm/dL Hct (39.0-53.0) % MCV (80.0-100.0) fL MCH (25.0-35.0) pg MCHC (31.0-37.0) g/dL RDW (11.5-15.5) % Plt Count (150-450) k/uL MPV Neutrophils % % Lymphocytes % % Monocytes % % Eosinophils % % Basophils % % Neutrophils # (1.3-7.7) k/uL Lymphocytes # (1.0-4.8) k/uL Monocytes # (0-1.0) k/uL Eosinophils # (0-0.7) k/uL Basophils # (0-0.2) k/uL Sodium (137-145) mmol/L Potassium (3.5-5.1) mmol/L Chloride (98-107) mmol/L Carbon Dioxide (22-30) mmol/L Anion Gap mmol/L BUN (9-20) mg/dL Creatinine (0.66-1.25) mg/dL Est GFR (CKD-EPI)AfAm (>60 ml/min/1.73 sqM) Est GFR (CKD-EPI)NonAf (>60 ml/min/1.73 sqM) Glucose (74-99) mg/dL POC Glucose (mg/dL) 148 H (70-110) mg/dL POC Glu Depilatory Painter ID Nile Shields Plasma Lactic Acid Amrit (0.7-2.0) mmol/L Calcium (8.4-10.2) mg/dL Magnesium (1.6-2.3) mg/dL Total Bilirubin (0.2-1.3) mg/dL AST (17-59) U/L ALT (4-49) U/L Alkaline Phosphatase (38-126) U/L Total Protein (6.3-8.2) g/dL Albumin (3.5-5.0) g/dL Serum Alcohol mg/dL Disposition Clinical Impression: Seizure Disposition: ADMITTED IP TO THIS HOSP Condition: Fair Referrals: Aman Smyth MD [Primary Care Provider] - 1-2 days Decision Time: 18:04
[2023-10-11 16:49] LABS: Basophils % (A) 0 %; Eosinophils # (A) 0.1 k/uL (0-0.7); Eosinophils % (A) 1 %; HCT 40.6 % (39.0-53.0); HGB 13.2 gm/dL (13.0-17.5); Lymphocytes # (A) 1.2 k/uL (1.0-4.8); Lymphocytes % (A) 20 %; MCH 30.7 pg (25.0-35.0); MCHC 32.4 g/dL (31.0-37.0); MCV 94.6 fL (80.0-100.0); Mean Platelet Volume 7.9; Monocytes # (A) 0.4 k/uL (0-1.0); Monocytes % (A) 7 %; Neutrophils # (A) 4.3 k/uL (1.3-7.7); Neutrophils % (A) 70 %; Platelet Count 219 k/uL (150-450); RDW 13.1 % (11.5-15.5); WBC 6.1 k/uL (3.8-10.6)
[2023-10-11] MEDS: SODIUM CHLORIDE 0.9% 1,000 ML IV STA (16:55)
--- NOTE | 2023-10-11 17:03 | CT ---
EXAMINATION TYPE: CT brain wo con DATE OF EXAM: 10/11/2023 COMPARISON: 04/23/2023 INDICATION: seizure DLP: 1145.4 mGycm, Automated exposure control for dose reduction was used. CONTRAST: None CT of the brain is performed utilizing 3 mm thick sections through the posterior fossa and 3 mm thick sections through the remaining calvarium. Study is performed within 24 hours of arrival to the hosp ital. No abnormal hyperdensity is present to suggest an acute intracranial hemorrhage. No mass lesion is evident. No acute infarcts are evident. Ventricles and sulci are somewhat prominent for the patient age. There are electronic device is in the right petrous ridge middle cranial fossa and right frontal avila on extending towards the midline. These are stable from comparison Paranasal sinuses and mastoid air cells within the [id number] are clear. IMPRESSION: 1. Stable electronic device is within the right hemisphere. 2. No acute intracranial process.
[2023-10-11 17:15] LABS: ALT 20 U/L (4-49); AST 36 U/L (17-59); African American GFR (CKD) >90 (>60 ml/min/1.73 sqM); Albumin 3.9 g/dL (3.5-5.0); Alcohol <10 mg/dL; Alkaline Phosphatase 57 U/L (38-126); Anion Gap 9 mmol/L; Blood Urea Nitrogen 12 mg/dL (9-20); Calcium 8.7 mg/dL (8.4-10.2); Carbon Dioxide 23 mmol/L (22-30); Chloride 100 mmol/L (98-107); Glucose 143 mg/dL (74-99); Magnesium 1.7 mg/dL (1.6-2.3); Non-African American GFR(CKD) >90 (>60 ml/min/1.73 sqM); Potassium 4.2 mmol/L (3.5-5.1); Sodium 132 mmol/L (137-145); Total Bilirubin 0.5 mg/dL (0.2-1.3); Total Protein 6.5 g/dL (6.3-8.2)
[2023-10-11] MEDS ORDERED: NALOXONE 0.4 MG/ML 1 ML VIAL IV PRN (17:58)
[2023-10-11 18:20] LABS: Valproic Acid (Depakene) 56.6 ug/mL
[2023-10-11] MEDS: SODIUM CHLORIDE 0.9% 1,000 ML IV SCH (18:45)
[2023-10-11] MEDS: DIVALPROEX ER 500 MG TAB.ER.24H PO SCH (19:45)
[2023-10-11] MEDS: lamoTRIgine 100 MG TAB PO SCH (19:46)
[2023-10-11] MEDS: carBAMazepine 200 MG TAB PO SCH (19:46)
[2023-10-11] MEDS: amLODIPine 2.5 MG TAB PO SCH (19:47)
[2023-10-11] MEDS: ATORVASTATIN 80 MG TAB PO SCH (19:47)
--- NOTE | 2023-10-11 23:41 | P.HPIM ---
History of Present Illness H&P Date: 10/11/23 Chief Complaint: Breakthrough seizure 58-year-old male with severe disorder started post remote closed head injury Patient was at [facility] when suddenly collapsed with a seizure episode for which bystanders notified EMS. In route he had another episode of seizure for which s he was given Versed 10 mg IM. Patient denies any tongue biting admits to urinary incontinence he describes the seizure as tonic-clonic complex seizures. He admits that his seizures are poorly controlled he had another episode yesterday but he did not feel that he needs to come to the hospital he also had an episode about a week ago. He has been following up outpatient with neurology to adjust his medications and control his seizures patient already has a nerve stimulator to help control his seizures. Patient reports that the seizures has been very difficult to control despite multiple medications and different interventions. Patient admits that if it was not for this episode being at [facility] he would not have seek medical attention. He feels back at his baseline at the time of my evaluation denies any headache changes in vision or hearing denies any other focal neurodeficits. Patient claims to be compliant with his medications denies any fevers chills recent illness. Patient reports urinary frequency and possible dysuria he also reports some odd odor from his urine denies any abdominal pain fevers chills nausea or vomiting Patient denies tobacco smoking illicit drugs or heavy alcohol review of systems Pertinent positives as noted in HPI. All other systems were reviewed and are negative on exam Constitutional: No acute distress, conversant, pleasant Eyes: Anicteric sclerae, moist conjunctiva, Pupils equal round reactive to light ENMT: NC/AT Oropharynx clear, no erythema, or exudates Neck: Supple, no masses, or JVD No carotid bruits No thyromegaly Lungs: Clear to auscultation Clear to percussion Normal respiratory effort, no accessory muscle use Cardiovascular: Heart regular in rate and rhythm, No murmurs, gallops, or rubs No peripheral edema Abdominal: Soft Nontender, no guarding, rebound or rigidity Abdomen moving with respiration Normoactive bowel sounds Extremities: No digital cyanosis No clubbing Pedal pulses intact and symmetrical Radial pulses intact and symmetrical No calf tenderness Psychiatric: Alert and oriented to person, place and time Appropriate affect fair judgement Neuro Muscles Strength 5/5 in all 4 extremities Sensation to light touch grossly present throughout Cranial nerves II-XII grossly intact Past Medical History Past Medical History: CVA/TIA, Diabetes Mellitus, Hyperlipidemia, Hypertension, Memory Impairment, Myocardial Infarction ([place]), Seizure Disorder, Sleep Apnea/CPAP/BIPAP Additional Past Medical History / Comment(s): TIA-some slight residual left sided weakness-resolved, "borderline diabetes"-diet control, no CPAP, has vagus nerve stimulator, hx migraines, epilepsy last seizure 1 month ago, seizures x2 (04/23/23) Last Myocardial Infarction Date:: 2015 History of Any Multi-Drug Resistant Organisms: None Reported Past Surgical History: Adenoidectomy, Ear Surgery, Heart Catheterization, Tonsillectomy Additional Past Surgical History / Comment(s): TUBES IN EARS, VAGUS NERVE STIMULATOR IMPLANT, responsive neuro stimulator placed 2021 Past Anesthesia/Blood Transfusion Reactions: Previous Problems w/ Anesthesia Additional Past Anesthesia/Blood Transfusion Reaction / Comment(s): STATES A LONG TIME TO WAKE UP AFTER ANESTHESIA. Past Psychological History: No Psychological Hx Reported Smoking Status: Never smoker Past Alcohol Use History: None Reported Past Drug Use History: None Reported - Past Family History Brother(s) Family Medical History: Cancer Additional Family Medical History / Comment(s): prostate CA with mets Medications and Allergies Home Medications Medication Instructions Recorded Confirmed Type Clopidogrel [Plavix] 75 mg PO DAILY@79903/16/17 10/11/23 History Divalproex ER [Depakote ER] 1,000 mg PO BID@799,199905/26/18 10/11/23 History Multivitamins, Thera [Multivitamin 1 tab PO DAILY@139905/26/18 10/11/23 History (formulary)] Niacin (Inositol Niacinate) 500 mg PO DAILY@139905/26/18 10/11/23 History [Niacin 500 mg Capsule] Atorvastatin Calcium [Lipitor] 80 mg PO HS@199910/30/19 10/11/23 History Folic Acid 0.8 mg PO DAILY@139910/30/19 10/11/23 History amLODIPine [Norvasc] 2.5 mg PO HS@199910/30/19 10/11/23 History Cholecalciferol [Vitamin D3 (125 125 mcg PO DAILY@139907/12/21 10/11/23 History Mcg = 5000 Iu)] Ezetimibe [Zetia] 10 mg PO DAILY@0800 07/12/21 10/11/23 History Thiamine [Vitamin B-1] 100 mg PO DAILY@1400 07/12/21 10/11/23 History carBAMazepine 100 mg PO DAILY@79907/12/21 10/11/23 History carBAMazepine 200 mg PO BID@1200,199907/12/21 10/11/23 History rOPINIRole HCL [Requip] 1 mg PO BID@0800,199909/23/21 10/11/23 History lamoTRIgine [LaMICtal] 100 mg PO BID@0800,199901/31/23 10/11/23 History Brivaracetam [Briviact] 100 mg PO BID@0800,199910/11/23 10/11/23 History Allergies Allergy/AdvReac Type Severity Reaction Status Date / Time No Known Allergies Allergy Verified 04/23/23 15:39 Physical Exam Vitals: Vital Signs Temp Pulse Resp BP Pulse Ox 10/11/23 19:51 98.2 F 80 16 129/90 96 10/11/23 18:30 80 24 154/92 97 10/11/23 18:00 87 20 147/90 100 10/11/23 17:30 82 19 136/90 98 10/11/23 17:00 91 22 138/83 97 10/11/23 16:48 88 22 120/96 95 10/11/23 16:15 98.1 F 89 22 133/88 96 Intake and Output 10/11/23 10/11/23 10/12/23 14:59 22:59 06:59 Other: Weight 95.254 kg Results CBC & Chem 7: 10/11/23 16:15 10/11/23 16:15 Labs: Abnormal Lab Results - Last 24 Hours (Table) 10/11/23 10/11/23 10/11/23 Range/Units 16:15 16:15 16:23 Sodium 132 L (137-145) mmol/L Glucose 143 H (74-99) mg/dL POC Glucose (mg/dL) 148 H (70-110) mg/dL Plasma Lactic Acid Amrit 3.9 H* (0.7-2.0) mmol/L 10/11/23 10/11/23 Range/Units 19:29 22:15 Sodium (137-145) mmol/L Glucose (74-99) mg/dL POC Glucose (mg/dL) (70-110) mg/dL Plasma Lactic Acid Amrit 2.3 H* 2.3 H* (0.7-2.0) mmol/L Assessment and Plan Assessment: 58-year-old male with seizure disorder [place] I discussed the case with ED doctor and accepted the admission for breakthrough seizure with anticipated length of stay less than 2 midnights Breakthrough seizure with history of seizure disorder Continue home seizure medications, Tegretol, Depakote, Lamictal Valproic acid within therapeutic window Alcohol level less than 10 Seizure precautions As needed Ativan 2 mg IV push for breakthrough seizures Neurology consult Brain CT no acute intracranial pathology, shows stable electronic device within the right hemisphere EKG normal sinus rhythm Blood work overall unremarkable showing white count 6.1 hemoglobin 13.2 platelet 219 unremarkable Neuro consult Hyponatremia Sodium 132 Otherwise unremarkable potassium 4.2 BUN 12 creatinine 0.8 Lactic acidosis 3.9 this is most likely secondary to seizure episode Continue with IV fluid hydration normal saline at 100 cc/h Monitor sodium level Liver enzymes unremarkable AST 36 ALT 20 total bili 0.5 History of CAD and stroke Continue with atorvastatin 80 mg nightly Continue with Plavix daily Continue with Zetia Full code DVT prophylaxis Lovenox 40 mg subcu daily
[2023-10-12 03:28] LABS: Carbamazepine (Tegretol) 8.8 UG/ML (4.0-12.0)
--- NOTE | 2023-10-12 04:49 | P.HPIM ---
History of Present Illness H&P Date: 10/12/23 Chief Complaint: Seizure Patient is a 58-year-old male with past medical history of seizure disorder presented to the ER with 2 episodes of seizure. Patient had a first episode of seizure at 4 PM when he was at [facility] with his . Patient reports that no prodromal signs before the onset of the seizure. Per patient, this seizure episode was witnessed by his nearby. It started suddenly with jerking limb movements and convulsions which lasted for 4 to 5 minutes followed by 4 to 5 minutes of postictal state before returning to baseline consciousness. The EMS service was called at the site and patient has second episode while being transferred to the hospital. Second episode was in very similar presentation compared to the first episode lasting for 4 to 5 minutes followed by 4 to 5 minutes of postictal state. Patient denies any head injury, mouth foaming, tongue bite, but was incontinent to urine. Patient has been diagnosed with seizure disorder since he was 12 years old. He is following with his neurologist on a regular basis for dosage adjustment and has nerve stimulated implanted for epilepsy. He reports that his frequency of seizures have in creased despite various interventions from 5 episodes per month to 10 episodes per month within the last 6 months. Patient also complains of right elbow pain after he fell down on the floor on his right side during the seizure episode. He denies pain anywhere else. CT head done in the ER shows no acute intracranial process. Stable nerve stimulator within the right hemisphere. EKG done in ER shows heart rate of 92 bpm, sinus rhythm, no STT changes noted, no QT prolongation noted, normal EKG. Vitals: Tmax 98.2 F. Pulse rate 80, respiration rate 18, blood pressure 133/90, O2 saturation 96% on room air. Review of systems: Pertinent positives and negatives as discussed in HPI, a complete review of systems was performed and all other systems are negative. Social history: Tobacco: None Alcohol: None Recreational drugs: None Travel: None Occupation: Unknown Family History: Noncontributory Physical examination: Vital signs reviewed General: non toxic, no distress, appears at stated age, normal weight Derm: no unusual rashes/lesions, warm Head: atraumatic, normocephalic, symmetric Eyes: EOMI, no lid lag, anicteric sclera, pupils equal round reactive to light ENT: Nose and ears atraumatic Neck: No cervical lymphadenopathy, trachea midline, supple Mouth: no lip lesion, mucus membranes moist Cardiovascular: S1S2 reg, no murmur, positive dorsalis pedis pulse bilateral, no edema Lungs: CTA bilateral, no rhonchi, no rales, no accessory muscle use Abdominal: soft, nontender to palpation, no guarding Ext: Right elbow range of motion limited due to pain, right olecranon tender to touch, muscle strength 5 out of 5 in all 4 extremities grossly, no gross muscle atrophy, no contractures, Neuro: CN II-XI grossly intact, no gross focal neuro deficits Psych: Alert, oriented, appropriate affect Assessment/Plan: 58-year-old male with past medical history of seizure disorder presented to the ER with 2 episodes of breakthrough seizure episodes. 1. Breakthrough Seizure episode Continue with home medication: Brivaracetam 100 mg p.o. twice daily, carbamazepine 200 mg p.o. twice daily, divalproex 1000 mg p.o. twice daily, lamotrigine 100 mg p.o. twice daily, ropinirole 1 mg p.o. twice daily. Seizure precautions Fall precautions Neurology consult Give Ativan 2 mg IV as needed for seizure episodes 2. Elbow pain, right Likely due to fall event during seizure episode Ordered right forearm x-ray Pain control with [place] as needed 3. Elevated plasma lactic acid, likely due to seizure episode CBC unremarkable Continue monitor plasma lactic acid Continue with IVFs DVT prophylaxis: Lovenox 40 mg subcu daily The patient is admitted with an anticipated less than 2 midnight stay for evaluation of seizure episode CODE STATUS: Full Discussed with: Patient Anticipated discharge place: home Past Medical History Past Medical History: CVA/TIA, Diabetes Mellitus, Hyperlipidemia, Hypertension, Memory Impairment, Myocardial Infarction ([place]), Seizure Disorder, Sleep Apnea/CPAP/BIPAP Additional Past Medical History / Comment(s): TIA-some slight residual left sided weakness-resolved, "borderline diabetes"-diet control, no CPAP, has vagus nerve stimulator, hx migraines, epilepsy last seizure 1 month ago, seizures x2 (04/23/23) Last Myocardial Infarction Date:: 2015 History of Any Multi-Drug Resistant Organisms: None Reported Past Surgical History: Adenoidectomy, Ear Surgery, Heart Catheterization, Tonsillectomy Additional Past Surgical History / Comment(s): TUBES IN EARS, VAGUS NERVE STIMULATOR IMPLANT, responsive neuro stimulator placed 2021 Past Anesthesia/Blood Transfusion Reactions: Previous Problems w/ Anesthesia Additional Past Anesthesia/Blood Transfusion Reaction / Comment(s): STATES A LONG TIME TO WAKE UP AFTER ANESTHESIA. Past Psychological History: No Psychological Hx Reported Smoking Status: Never smoker Past Alcohol Use History: None Reported Past Drug Use History: None Reported - Past Family History Brother(s) Family Medical History: Cancer Additional Family Medical History / Comment(s): prostate CA with mets Medications and Allergies Home Medications Medication Instructions Recorded Confirmed Type Clopidogrel [Plavix] 75 mg PO DAILY@00 03/16/17 10/11/23 History Divalproex ER [Depakote ER] 1,000 mg PO BID@799,199905/26/18 10/11/23 History Multivitamins, Thera [Multivitamin 1 tab PO DAILY@139905/26/18 10/11/23 History (formulary)] Niacin (Inositol Niacinate) 500 mg PO DAILY@139905/26/18 10/11/23 History [Niacin 500 mg Capsule] Atorvastatin Calcium [Lipitor] 80 mg PO HS@199910/30/19 10/11/23 History Folic Acid 0.8 mg PO DAILY@139910/30/19 10/11/23 History amLODIPine [Norvasc] 2.5 mg PO HS@199910/30/19 10/11/23 History Cholecalciferol [Vitamin D3 (125 125 mcg PO DAILY@139907/12/21 10/11/23 History Mcg = 5000 Iu)] Ezetimibe [Zetia] 10 mg PO DAILY@79907/12/21 10/11/23 History Thiamine [Vitamin B-1] 100 mg PO DAILY@139907/12/21 10/11/23 History carBAMazepine 100 mg PO DAILY@79907/12/21 10/11/23 History carBAMazepine 200 mg PO BID@1200,199907/12/21 10/11/23 History rOPINIRole HCL [Requip] 1 mg PO BID@0800,199909/23/21 10/11/23 History lamoTRIgine [LaMICtal] 100 mg PO BID@0800,199901/31/23 10/11/23 History Brivaracetam [Briviact] 100 mg PO BID@0800,199910/11/23 10/11/23 History Allergies Allergy/AdvReac Type Severity Reaction Status Date / Time No Known Allergies Allergy Verified 04/23/23 15:39 Physical Exam Vitals: Vital Signs Temp Pulse Pulse Resp BP BP Pulse Ox 10/12/23 01:26 70 18 133/90 96 10/11/23 19:51 98.2 F 80 16 129/90 96 10/11/23 18:30 80 24 154/92 97 10/11/23 18:00 87 20 147/90 100 10/11/23 17:30 82 19 136/90 98 10/11/23 17:00 91 22 138/83 97 10/11/23 16:48 88 22 120/96 95 10/11/23 16:15 98.1 F 89 22 133/88 96 Intake and Output 10/11/23 10/11/23 10/12/23 14:59 22:59 06:59 Output Total 300 Balance -300 Output: Urine 300 Other: Voiding Method Urinal Weight 95.254 kg Results CBC & Chem 7: 10/11/23 16:15 10/11/23 16:15 Labs: Abnormal Lab Results - Last 24 Hours (Table) 10/11/23 10/11/23 10/11/23 Range/Units 16:15 16:15 16:23 Sodium 132 L (137-145) mmol/L Glucose 143 H (74-99) mg/dL POC Glucose (mg/dL) 148 H (70-110) mg/dL Plasma Lactic Acid Amrit 3.9 H* (0.7-2.0) mmol/L 10/11/23 10/11/23 Range/Units 19:29 22:15 Sodium (137-145) mmol/L Glucose (74-99) mg/dL POC Glucose (mg/dL) (70-110) mg/dL Plasma Lactic Acid Amrit 2.3 H* 2.3 H* (0.7-2.0) mmol/L
[2023-10-12 04:57] LABS: Appearance,Urine Clear (Clear); Bilirubin,Urine Negative (Negative); Blood,Urine Small (Negative); Color,Urine Colorless; Glucose,Urine (UA) Negative (Negative); Ketones,Urine Negative (Negative); Leukocyte Esterase,Urine Negative (Negative); Mucus,Urine Rare /hpf; Nitrite,Urine Negative (Negative); PH, Urine 7.5 (5.0-8.0); Protein,Urine Negative (Negative); RBC,Urine 12 /hpf (0-5); Specific Gravity,Urine 1.012 (1.001-1.035); Urobilinogen,Urine <2.0 mg/dL (<2.0); WBC,Urine 2 /hpf (0-5)
[2023-10-12] MEDS ORDERED: LORazepam 2 MG/ML INJ IV PRN (06:14)
[2023-10-12] MEDS: PANTOPRAZOLE 40 MG TABLET PO SCH (06:42)
[2023-10-12] MEDS: NON FORMULARY DRUG (Brivaracetam [Briviact] 100 MG Tablet) PO SCH ×2 (07:16→08:00)
--- NOTE | 2023-10-12 07:35 | XR ---
EXAMINATION TYPE: XR elbow complete RT DATE OF EXAM: 10/12/2023 COMPARISON: None HISTORY: Pain TECHNIQUE: 3 view right elbow FINDINGS: Anterior fat pad is normal. No elevation posterior fat pad is evident. Radius aligns normal ly with the humerus. No acute fracture or dislocation. Follow up exams can be performed 7-10 days from acute trauma for co ntinued pain. IMPRESSION: 1. No acute osseous abnormality radiographically apparent.
[2023-10-12] MEDS: CLOPIDOGREL 75 MG TAB PO SCH (08:00)
[2023-10-12] MEDS: EZETIMIBE 10 MG TAB PO SCH (08:00)
[2023-10-12] MEDS: ENOXAPARIN 40 MG/0.4 ML SYRINGE SQ SCH (08:01)
[2023-10-12] MEDS: carBAMazepine 200 MG TAB PO SCH (08:01)
[2023-10-12] MEDS: HYDROcodone/APAP 5-325MG 1 EACH TAB PO PRN (11:32)
[2023-10-12 11:50] LABS: BUN/Creat Ratio 8.56 Ratio (12.00-20.00); Blood Urea Nitrogen 7.7 mg/dL (9.0-27.0); Calcium 8.7 mg/dL (8.7-10.3); Carbon Dioxide 23.6 mmol/L (21.6-31.8); Chloride 99 mmol/L (96-109); Glucose 113 mg/dL (70-110); Potassium 4.4 mmol/L (3.5-5.5); Sodium 134 mmol/L (135-145)
--- NOTE | 2023-10-12 13:12 | EEG ---
ELECTROENCEPHALOGRAM REPORT PREAMBLE: This is a 58-year-old male with history of epilepsy, came with breakthrough seizures. He has history of seizure since age 12. The patient was recently taken off Keppra and started on Briviact by his neurologist. The patient also has a neurostimulator placed under the scalp. The patient had 2 seizures yesterday. CURRENT MEDICATIONS: 1. Tegretol. 2. Depakote. 3. Lamictal. 4. Briviact. EEG FINDINGS: This is a 21-channel digital EEG recorded with video component, utilizing 10/20 international system with referential and bipolar montages. Background consists of well-developed, but somewhat disorganized, mixed frequencies of 6 to 7 hertz theta, intermixed with some alpha activity seen in bihemispheric region. Background is posterior dominant and does not seem to be reactive to eye opening or closing. Frequent repetitive high-amplitude artifact from the neurostimulator was noted involving predominantly the right hemispheric region extending slightly to the left side as well. Drowsiness was seen with appearance of bilaterally symmetric lower frequency theta rhythm. Deeper stages of sleep were not seen. No focal or generalized epileptiform activity was seen. No electrographic seizure was recorded. EKG channel showed no obvious arrhythmia. IMPRESSION: This is an abnormal EEG due to background slowing suggestive of mild encephalopathy. No obvious focal, lateralized, or epileptiform activity was seen. Presence of neurostimulator spike artifact seen repetitively, predominantly the right hemispheric region. [id number] / IJN: [id number] /
[2023-10-12] MEDS: FOLIC ACID 1 MG TAB PO SCH (13:24)
[2023-10-12] MEDS: NIACIN 500 MG PO SCH (13:24)
[2023-10-12] MEDS: THIAMINE 100 MG TAB PO SCH (13:24)
[2023-10-12] MEDS: MULTIVITAMINS, THERA 1 EACH TAB PO SCH (13:24)
[2023-10-12] MEDS: CHOLECALCIFEROL 125 MCG (5000 IU) TABLET PO SCH (13:24)
[2023-10-12 16:12] VITALS: BP 163/97; PULSE 71; RESP 18; TEMP 98.4
--- NOTE | 2023-10-12 16:22 | P.CNNES ---
History of Present Illness Consult date: 10/12/23 Requesting physician: Ceferino Keenan Reason for Consult: Status epilepticus History of Present Illness: Patient is a 58-year-old male with history of medically intractable epilepsy, follows up with Dr. Grigsby, came to the hospital by ambulance yesterday at 4:09 PM for recurrent seizures. Patient does not remember the details. As per EMS flowsheet when they arrived, found patient in the passenger side of his car, stated that he was walking from [facility] to his car and was weak and fell to the knee twice. 2 people help him to the car and patient had a generalized seizure lasting about 2 minutes. Patient was unresponsive, postictal at the time of EMS arrival. Airway was open and he was breathing at 14/min. Heart rate was 100. Patient was removed from the car onto the stretcher. Patient's has mentioned that patient has history of seizures and is compliant with his medication. While EMS was there, patient gaze deviated to the right and had a full body seizure. Patient was given 5 mg Versed IM in the left deltoid. Patient's seizure continued therefore he received a second dose of Versed 5 mg IM and seizure stopped about a minute. Patient's blood pressure was 148/100, pulse rate 100 respiration 14 saturation 97%. Patient's blood test on arrival showed normal CBC, sodium 132 potassium 4.2, normal renal and hepatic panel. Lactate was 3.9. Blood alcohol level negative. Patient had a CT scan of head which revealed stable electronic device is within the right hemisphere. No acute intracranial process. I personally reviewed CT head, agree with the findings. EKG shows sinus rhythm. Elbow x-ray showed no acute osseous abnormality radiographically apparent. Patient has not had any further seizures since arrival to the hospital. Patient had multiple EEGs in the past, which only revealed background slowing, suggestive of encephalopathy. No epileptiform activity was seen. Patient has been seen by myself on 10/31/2019 when he had presented with similar scenario. Patient was found home unresponsive and he had felt that he likely had a seizure. Patient has mentioned that he has history of seizures since he was age 12. Patient was on Depakote 750 mg every 12 hours (now 1000 mg twice a day), Lamictal 150 mg twice a day (now 100 mg twice a day), Keppra 1500 mg twice a day (which has been discontinued, and now switched to Briviact 100 mg twice daily about couple months ago), and Carbatrol 300 mg twice a day (now patient is on Carbatrol 200 mg twice a day at noon and 8 PM and 100 mg at 8 AM). Patient follows up with Dr. Grigsby. Patient has mentioned that his seizures localizes to the right side. Patient gets petit mal seizures. He says that his "stomach gets going", then gets weak feeling. His seizure lasts for a couple minutes. He denies any tongue bite or loss of control of urine. He gets seizures every month or every 1-2 months. Patient states that he is getting seizures about once or twice every other week. He follows up with Dr. Grigsby. Patient also has seen Dr. Montes in [place] and patient underwent magnetoencephalography on 07/22/2021. Patient has a VNS, but feels it does not help. Patient at present complaining of feeling very tired. Also complaining of right knee pain because of the falls. Review of Systems Constitutional: Denies chills, Denies fever Eyes: denies blurred vision, denies diplopia, denies pain Ears: deny: decreased hearing, ear discharge Ears, nose, mouth and throat: Denies headache, Denies sore throat Cardiovascular: Reports shortness of breath, Denies chest pain Respiratory: Denies cough, Denies excessive sputum Gastrointestinal: Denies abdominal pain, Denies diarrhea, Denies nausea, Denies vomiting Musculoskeletal: Reports low back pain, Denies myalgias, Denies neck pain. Reports right elbow pain from fall. Integumentary: Denies pruritus, Denies rash Neurological: Reports as per HPI Psychiatric: Denies anxiety, Denies depression Endocrine: Reports fatigue, Denies weight change Past Medical History Past Medical History: CVA/TIA, Diabetes Mellitus, Hyperlipidemia, Hypertension, Memory Impairment, Myocardial Infarction ([place]), Seizure Disorder, Sleep Apnea/CPAP/BIPAP Additional Past Medical History / Comment(s): TIA-some slight residual left sided weakness-resolved, "borderline diabetes"-diet control, no CPAP, has vagus nerve stimulator, hx migraines, epilepsy last seizure 1 month ago, seizures x2 (04/23/23) Last Myocardial Infarction Date:: 2015 History of Any Multi-Drug Resistant Organisms: None Reported Past Surgical History: Adenoidectomy, Ear Surgery, Heart Catheterization, Tonsi llectomy Additional Past Surgical History / Comment(s): TUBES IN EARS, VAGUS NERVE STIMULATOR IMPLANT, responsive neuro stimulator placed 2021 Past Anesthesia/Blood Transfusion Reactions: Previous Problems w/ Anesthesia Additional Past Anesthesia/Blood Transfusion Reaction / Comment(s): STATES A LONG TIME TO WAKE UP AFTER ANESTHESIA. Past Psychological History: No Psychological Hx Reported Smoking Status: Never smoker Past Alcohol Use History: None Reported Past Drug Use History: None Reported - Past Family History Brother(s) Family Medical History: Cancer Additional Family Medical History / Comment(s): prostate CA with mets Medications and Allergies Home Medications Medication Instructions Recorded Confirmed Type Clopidogrel [Plavix] 75 mg PO DAILY@0800 03/16/17 10/11/23 History Divalproex ER [Depakote ER] 1,000 mg PO BID@08,199905/26/18 10/11/23 History Multivitamins, Thera [Multivitamin 1 tab PO DAILY@139905/26/18 10/11/23 History (formulary)] Niacin (Inositol Niacinate) 500 mg PO DAILY@139905/26/18 10/11/23 History [Niacin 500 mg Capsule] Atorvastatin Calcium [Lipitor] 80 mg PO HS@199910/30/19 10/11/23 History Folic Acid 0.8 mg PO DAILY@139910/30/19 10/11/23 History amLODIPine [Norvasc] 2.5 mg PO HS@199910/30/19 10/11/23 History Cholecalciferol [Vitamin D3 (125 125 mcg PO DAILY@139907/12/21 10/11/23 History Mcg = 5000 Iu)] Ezetimibe [Zetia] 10 mg PO DAILY@00 07/12/21 10/11/23 History Thiamine [Vitamin B-1] 100 mg PO DAILY@139907/12/21 10/11/23 History carBAMazepine 100 mg PO DAILY@79907/12/21 10/11/23 History carBAMazepine 200 mg PO BID@1200,199907/12/21 10/11/23 History rOPINIRole HCL [Requip] 1 mg PO BID@0800,199909/23/21 10/11/23 History lamoTRIgine [LaMICtal] 100 mg PO BID@08,2000 01/29/23 07/08/24 History Brivaracetam [Briviact] 100 mg PO BID@10/11/23 10/11/23 History Allergies Allergy/AdvReac Type Severity Reaction Status Date / Time No Known Allergies Allergy Verified 04/23/23 15:39 Physical Examination - Vital Signs Vital Signs: Vital Signs Temp Pulse Pulse Resp BP BP Pulse Ox 10/12/23 11:30 98.0 F 70 17 157/88 95 10/12/23 06:39 79 16 139/97 97 10/12/23 01:26 70 18 133/90 96 10/11/23 19:51 98.2 F 80 16 129/90 96 10/11/23 18:30 80 24 154/92 97 10/11/23 18:00 87 20 147/90 100 10/11/23 17:30 82 19 136/90 98 10/11/23 17:00 91 22 138/83 97 10/11/23 16:48 88 22 120/96 95 10/11/23 16:15 98.1 F 89 22 133/88 96 Intake and Output 10/12/23 10/12/23 10/12/23 06:59 14:59 22:59 Output Total 300 Balance -300 Output: Urine 300 Other: Voiding Method Urinal # Voids 2 Patient is a middle-aged male, in no acute distress. Patient is alert awake oriented to time place and person. He knows it is [facility] imported on [place]. He thinks it is September and the year is 2023. Speech and language functions are normal. Patient can name and repeat very well. No aphasia or dysarthria. Attention, concentration and fund of knowledge is adequate. Detailed cognitive function testing deferred. On cranial nerve examination, pupils are equal, round and reacting to light, visual kaur are full on confrontation, with no neglect on double simultaneous stimulation. Extraocular muscles are intact with no nystagmus. Face is symmetric, but with active testing, he has slight right-sided asymmetry, tongue protrudes to the midline. Palatal elevation and sensation normal, hearing and shoulder shrug normal, facial sensation normal. No evidence of oral trauma. On muscle strength testing, there is no pronator drift and the strength is normal in arms and legs distally and proximally. Right elbow is sore from falls. Deep tendon reflexes are symmetric trace in the upper limbs, 1+ at the knees and plantars downgoing. Sensory to touch is equal with no neglect on double simultaneous stimulation. Cerebellar function showed tremulousness for [id number] testing bilaterally but no ataxia. No ataxia for btja-[id number] testing on either side. Tone and bulk of muscles normal. Gait deferred.. On general examination, there is no carotid bruit or murmur, S1-S2 audible. Chest is clear on consultation. Abdomen is soft nontender. No organomegaly, bowel sounds present. Peripheral pulses are present. No peripheral edema. Results - Laboratory Findings CBC and BMP: 10/11/23 16:15 10/12/23 07:35 Abnormal Lab Findings: Abnormal Labs 10/11/23 10/11/23 10/11/23 16:15 16:15 16:23 Sodium 132 L BUN BUN/Creatinine Ratio Glucose 143 H POC Glucose (mg/dL) 148 H Plasma Lactic Acid Amrit 3.9 H* Urine Blood Urine RBC Urine Mucus 10/11/23 10/11/23 10/12/23 19:29 22:15 02:30 Sodium BUN BUN/Creatinine Ratio Glucose POC Glucose (mg/dL) Plasma Lactic Acid Amrit 2.3 H* 2.3 H* Urine Blood Small H Urine RBC 12 H Urine Mucus Rare H 10/12/23 07:35 Sodium 134 L BUN 7.7 L BUN/Creatinine Ratio 8.56 L Glucose 113 H POC Glucose (mg/dL) Plasma Lactic Acid Amrit Urine Blood Urine RBC Urine Mucus Assessment and Plan Assessment: * Medically intractable epilepsy, came with status epilepticus. Exact cause of breakthrough seizure unclear. He is compliant with the medications, levels are therapeutic. * Presence of VNS and RNS. Patient is on 4 antiepileptic medication with therapeutic doses and levels. Patient is fully compliant with medications. * History of right Hammonds's palsy * Diabetes * Hypertension * Obesity * Sleep apnea Plan: * Patient's breakthrough seizure is of unclear cause. He is compliant with medications. * Continue seizure medications including Depakote 1000 mg twice a day, Lamictal 100 mg twice a day, Briviact 100 mg twice daily and Carbatrol 200 mg twice a day (at 2 PM and 8 PM) and 100 mg at 8 AM. * Depakote level is 56.6, Tegretol 8.8 (4-12). Lamictal level 3.8 (2-15). Interestingly patient has stopped Keppra couple months ago, but his Keppra level is 25.6 (3-60). Patient is on Briviact. Patient does not want to make any changes in his medication and wants to see his neurologist. * Continue Plavix 75 mg, Zetia 10 mg and Lipitor 80 mg. * Recommend patient follow up with his neurologist outpatient within 1-2 weeks. * Patient was informed of [place] state law of no driving unless seizure free for 6 months, climbing ladders, operating dangerous machinery or unsupervised swimming. * Neurologically clear for discharge. * Thank you for the consult.
--- NOTE | 2023-10-12 17:16 | P.DS ---
Providers Date of admission: 10/11/23 17:58 Expected date of discharge: 10/12/23 Attending physician: Giovanni Long MD Consults: 10/12/23 15:32 Consult Physician Urgent Consulting Provider: Valdez Denson Consult Reason/Comments: Seizure Do you want consulting provider notified?: Already Contacted Primary care physician: Aman Malin [facility] Course: Breakthrough Seizure Elbow pain, right Elevated plasma lactic acid, likely due to seizure episode Hospital course: Patient is a 58-year-old male with past medical history of seizure disorder presented to the ER with [address] head done in the ER shows no acute intracranial process. Stable nerve stimulator within the right hemisphere. EKG done in ER shows heart rate of 92 bpm, sinus rhythm, no STT changes noted, no QT prolongation noted, normal EKG. Vitals: Tmax 98.2 F. Pulse rate 80, respiration rate 18, blood pressure 133/90, O2 saturation 96% on room air. Pt had EEG which was negative for seizures. Seen by neurology who cleared the patient for discharge with neurology follow up. Physical exam: Gen: In NAD, non-toxic HEENT: normocephalic, atraumatic, hearing acuity is intant, mucous membranes moist CVS: perfusing all extremities well, no pitting edema, Respiratory: symmetric chest expansion, no accessory muscle use, GI: soft, NTTP, ND, : no suprapubic tenderness, no CVA tenderness MSK/Derm: no rashes, cyanosis Neuro: CN II-XII intact, no motor weakness, Psych: cooperative, euthymic mood, judgment and insight is intact Patient Condition at Discharge: Good Plan - Discharge Summary New Discharge Prescriptions: New Pantoprazole [Protonix] 40 mg PO -BRKFST #30 tab Continue Clopidogrel [Plavix] 75 mg PO DAILY@0800 Divalproex ER [Depakote ER] 1,000 mg PO BID@0800,2000 Niacin (Inositol Niacinate) [Niacin 500 mg Capsule] 500 mg PO DAILY@1400 Multivitamins, Thera [Multivitamin (formulary)] 1 tab PO DAILY@1400 amLODIPine [Norvasc] 2.5 mg PO HS@2000 Atorvastatin Calcium [Lipitor] 80 mg PO HS@2000 Folic Acid 0.8 mg PO DAILY@1400 Thiamine [Vitamin B-1] 100 mg PO DAILY@1400 Cholecalciferol [Vitamin D3 (125 Mcg = 5000 Iu)] 125 mcg PO DAILY@1400 lamoTRIgine [LaMICtal] 100 mg PO BID@08,1999 Brivaracetam [Briviact] 100 mg PO BID@799,1999 Ezetimibe [Zetia] 10 mg PO DAILY@0800 carBAMazepine 200 mg PO BID@1199,1999 carBAMazepine 100 mg PO DAILY@0800 rOPINIRole HCL [Requip] 1 mg PO BID@799,1999 Discharge Medication List Clopidogrel [Plavix] 75 mg PO DAILY@0800 03/16/17 [History] Divalproex ER [Depakote ER] 1,000 mg PO BID@799,199905/26/18 [History] Multivitamins, Thera [Multivitamin (formulary)] 1 tab PO DAILY@139905/26/18 [History] Niacin (Inositol Niacinate) [Niacin 500 mg Capsule] 500 mg PO DAILY@139905/26/18 [History] Atorvastatin Calcium [Lipitor] 80 mg PO HS@199910/30/19 [History] Folic Acid 0.8 mg PO DAILY@139910/30/19 [History] amLODIPine [Norvasc] 2.5 mg PO HS@199910/30/19 [History] Cholecalciferol [Vitamin D3 (125 Mcg = 5000 Iu)] 125 mcg PO DAILY@1400 07/12/21 [History] Ezetimibe [Zetia] 10 mg PO DAILY@0800 07/12/21 [History] Thiamine [Vitamin B-1] 100 mg PO DAILY@139907/12/21 [History] carBAMazepine 100 mg PO DAILY@0800 07/12/21 [History] carBAMazepine 200 mg PO BID@1200,199907/12/21 [History] rOPINIRole HCL [Requip] 1 mg PO BID@08,199909/23/21 [History] lamoTRIgine [LaMICtal] 100 mg PO BID@08,199901/31/23 [History] Brivaracetam [Briviact] 100 mg PO BID@0800,199910/11/23 [History] Pantoprazole [Protonix] 40 mg PO AC-BRKFST #30 tab 10/12/23 [Rx] Follow up Appointment(s)/Referral(s): Aman Smyth MD [Primary Care Provider] - 1-2 days Discharge Disposition: HOME SELF-CARE
== END 2023-10-12 18:44 | disposition home or self-care (01) ==
LOC: EC 16:09 → 4SSUR 17:58 → 6NMEDSUR 18:11 → 1SOBS 10-12 16:32
PROVIDERS: ADMIT Student in an Organized Health Care Education/Training Program; ATTEND Student in an Organized Health Care Education/Training Program
DX: G40.909 Epilepsy, unspecified, not intractable, without status epilepticus (principal); R79.89 Other specified abnormal findings of blood chemistry; M25.521 Pain in right elbow; Z86.73 Personal history of transient ischemic attack (TIA), and cerebral infarction without residual deficits; Z80.42 Family history of malignant neoplasm of prostate; Z79.899 Other long term (current) drug therapy; Z79.02 Long term (current) use of antithrombotics/antiplatelets
CPT/HCPCS: 96372; 96360; 99285; 36415; 95816; 93005; 80156; 80164; 80053; 80048; 80175; 83605 ×2; 83735; 85025; 81001; 80320; 73080; 70450; G0378 ×2; J1650

== ENCOUNTER 2023-12-16 09:31 | Emergency (ER) | payer OTHER, MEDICARE ==
[2023-12-16 09:40] VITALS: TEMP 98
--- NOTE | 2023-12-16 10:02 | ED ---
General Adult HPI - General Chief complaint: Seizure Stated complaint: seizure Time Seen by Provider: 12/16/23 09:49 Source: patient, family, EMS, RN notes reviewed Mode of arrival: EMS Limitations: no limitations - History of Present Illness Initial comments: pt w sz x 2 at home. first 2 mins. second 5 mins. no injury. hx of seizures usually every other month. on lamictal,depakote,tegretol,briviact pt drowsy now -: minutes(s) - Related Data Home Medications Medication Instructions Recorded Confirmed Clopidogrel [Plavix] 75 mg PO DAILY@0800 03/16/17 10/11/23 Divalproex ER [Depakote ER] 1,000 mg PO BID@08,199905/26/18 10/11/23 Multivitamins, Thera [Multivitamin 1 tab PO DAILY@139905/26/18 10/11/23 (formulary)] Niacin (Inositol Niacinate) 500 mg PO DAILY@139905/26/18 10/11/23 [Niacin 500 mg Capsule] Atorvastatin Calcium [Lipitor] 80 mg PO HS@199910/30/19 10/11/23 Folic Acid 0.8 mg PO DAILY@139910/30/19 10/11/23 amLODIPine [Norvasc] 2.5 mg PO HS@199910/30/19 10/11/23 Cholecalciferol [Vitamin D3 (125 125 mcg PO DAILY@139907/12/21 10/11/23 Mcg = 5000 Iu)] Ezetimibe [Zetia] 10 mg PO DAILY@0800 07/12/21 10/11/23 Thiamine [Vitamin B-1] 100 mg PO DAILY@139907/12/21 10/11/23 carBAMazepine 100 mg PO DAILY@0800 07/12/21 10/11/23 carBAMazepine 200 mg PO BID@1200,199907/12/21 10/11/23 rOPINIRole HCL [Requip] 1 mg PO BID@0800,199909/23/21 10/11/23 lamoTRIgine [LaMICtal] 100 mg PO BID@0800,199901/31/23 10/11/23 Brivaracetam [Briviact] 100 mg PO BID@0800,199910/11/23 10/11/23 Previous Rx's Medication Instructions Recorded Pantoprazole [Protonix] 40 mg PO AC-BRKFST #30 tab 10/12/23 Allergies Allergy/AdvReac Type Severity Reaction Status Date / Time No Known Allergies Allergy Verified 04/23/23 15:39 Review of Systems ROS Statement: Those systems with pertinent positive or pertinent negative responses have been documented in the HPI. ROS Other: All systems not noted in ROS Statement are negative. Constitutional: Denies: fever Eyes: Denies: eye pain ENT: Denies: ear pain Respiratory: Denies: dyspnea Cardiovascular: Denies: chest pain Endocrine: Reports: fatigue Gastrointestinal: Denies: abdominal pain Musculoskeletal: Denies: back pain Skin: Denies: rash Neurological: Denies: headache, weakness, confusion Past Medical History Past Medical History: CVA/TIA, Diabetes Mellitus, Hyperlipidemia, Hypertension, Memory Impairment, Myocardial Infarction ([place]), Seizure Disorder, Sleep Apnea/C PAP/BIPAP Additional Past Medical History / Comment(s): TIA-some slight residual left sided weakness-resolved, "borderline diabetes"-diet control, no CPAP, has vagus nerve stimulator, hx migraines, epilepsy last seizure 1 month ago, seizures x2 (04/23/23) Last Myocardial Infarction Date:: 2015 History of Any Multi-Drug Resistant Organisms: None Reported Past Surgical History: Adenoidectomy, Ear Surgery, Heart Catheterization, Tonsillectomy Additional Past Surgical History / Comment(s): TUBES IN EARS, VAGUS NERVE STIMULATOR IMPLANT, responsive neuro stimulator placed 2021 Past Anesthesia/Blood Transfusion Reactions: Previous Problems w/ Anesthesia Additional Past Anesthesia/Blood Transfusion Reaction / Comment(s): STATES A LONG TIME TO WAKE UP AFTER ANESTHESIA. Past Psychological History: No Psychological Hx Reported Smoking Status: Never smoker Past Alcohol Use History: None Reported Past Drug Use History: None Reported - Past Family History Brother(s) Family Medical History: Cancer Additional Family Medical History / Comment(s): prostate CA with mets General Exam Limitations: no limitations General appearance: alert, in no apparent distress Head exam: Present: normocephalic Eye exam: Present: normal appearance, PERRL, EOMI ENT exam: Present: normal oropharynx Neck exam: Present: normal inspection. Absent: tenderness, meningismus Respiratory exam: Present: normal lung sounds bilaterally Cardiovascular Exam: Present: regular rate, normal rhythm GI/Abdominal exam: Present: soft. Absent: tenderness Extremities exam: Present: normal inspection, full ROM. Absent: tenderness Neurological exam: Present: alert, oriented X3, CN II-XII intact. Absent: motor sensory deficit Expanded Neurological exam: Present: protecting the airway Patient oriented to: Present: person, place, time Cranial nerves: EOM's Intact: Normal Motor strength exam: RUE: 5, LUE: 5, RLE: 5, LLE: 5 Eye Response: (4) open spontaneously Motor Response: (6) obeys commands Verbal Response: (5) oriented Psychiatric exam: Present: flat affect Skin exam: Present: normal color Course Vital Signs 12/16/23 12/16/23 09:32 10:53 Temperature 98.0 F Pulse Rate 76 67 Respiratory 18 14 Rate Blood Pressure 154/100 152/90 O2 Sat by Pulse 100 Oximetry EKG Findings - EKG Results: EKG: interpreted by YUDI, sinus rhythm, normal axis, normal QRS, normal ST/T Medical Decision Making - Medical Decision Making Was pt. sent in by a medical professional or institution (JACQUE Booth, PETROPHYSICIST, urgent care, hospital, or retirement...) When possible be specific @ -No Did you speak to anyone other than the patient for history (EMS, parent, family, police, friend...)? What history was obtained from this source @ - is present and helps provide history including seizure history which is helpful because patient is postictal Did you review nursing and triage notes (agree or disagree)? Why? @ -I reviewed and agree with nursing and triage notes Were old charts reviewed (outside hosp., previous admission, EMS record, old EKG, old radiological studies, urgent care reports/EKG's, retirement records)? Report findings @ -No old charts were reviewed Differential Diagnosis (chest pain, altered mental status, abdominal pain women, abdominal pain men, vaginal bleeding, weakness, fever, dyspnea, syncope, headache, dizziness, GI bleed, back pain, seizure, CVA, palpatations, mental health, musculoskeletal)? @ -Differential Seizure: Recurrent seizure disorder, febrile seizure, alcohol withdrawal, stimulants, meningitis, encephalitis, intercranial hemorrhage, intracranial tumor, stroke, eclampsia, thyrotoxicosis, hypocalcemia, hyponatremia, hypernatremia, hypomagnesemia, psychogenic, this is not meant to be an all-inclusive list. EKG interpreted by (3pts min.). @ -As above X-rays interpreted by me (1pt min.). @ -None done CT interpreted by me (1pt min.). @ -None done U/S interpreted by me (1pt. min.). @ -None done What testing was considered but not performed or refused? (CT, X-rays, U/S, labs)? Why? @ -None What meds were considered but not given or refused? Why? @ -None Did you discuss the management of the patient with other professionals (professionals i.e. , PA, PETROPHYSICIST, lab, RT, psych nurse, social work faculty member, certified novell administrator, teacher, forward air controller/air officer, piano case maker)? Give summary @ -No Was smoking cessation discussed for >3mins.? @ -No Was critical care preformed (if so, how long)? @ -No Were there social determinants of health that impacted care today? How? (Homelessness, low income, unemployed, alcoholism, drug addiction, trans portation, low edu. Level, literacy, decrease access to med. care, longterm, rehab)? @ -No Was there de-escalation of care discussed even if they declined (Discuss DNR or withdrawal of care, Hospice)? DNR status @ -No What co-morbidities impacted this encounter? (DM, HTN, Smoking, COPD, CAD, Cancer, CVA, ARF, Chemo, Hep., AIDS, mental health diagnosis, sleep apnea, morbid obesity)? @ -None Was patient admitted / discharged? Hospital course, mention meds given and route, prescriptions, significant lab abnormalities, going to OR and other pertinent info. @ -Patient reevaluated and is drowsy however is arousable and oriented. Patient will be discharged with follow-up with primary care and neurology. They are aware of pending anticonvulsant levels Undiagnosed new problem with uncertain prognosis? @ -No Drug Therapy requiring intensive monitoring for toxicity (Heparin, Nitro, Insulin, Cardizem)? @ -No Were any procedures done? @ -No Diagnosis/symptom? @ -Seizure Acute, or Chronic, or Acute on Chronic? @ -Acute on chronic Uncomplicated (without systemic symptoms) or Complicated (systemic symptoms)? @ -Default Side effects of treatment? @ -No Exacerbation, Progression, or Severe Exacerbation? @ -No Poses a threat to life or bodily function? How? (Chest pain, [place], [place], pneumonia, PE, COPD, DKA, ARF, appy, cholecystitis, CVA, Diverticulitis, Homicidal, Suicidal, threat to staff... and all critical care pts) @ -No - Lab Data Result diagrams: 12/16/23 10:08 12/16/23 10:08 Lab Results 12/16/23 12/16/23 12/16/23 Range/Units 10:08 10:08 10:56 WBC 6.1 (3.8-10.6) k/uL RBC 4.51 (4.30-5.90) m/uL Hgb 13.8 (13.0-17.5) gm/dL Hct 41.9 (39.0-53.0) % MCV 92.9 (80.0-100.0) fL MCH 30.6 (25.0-35.0) pg MCHC 32.9 (31.0-37.0) g/dL RDW 13.2 (11.5-15.5) % Plt Count 258 (150-450) k/uL MPV 7.4 Neutrophils % 61 % Lymphocytes % 27 % Monocytes % 9 % Eosinophils % 1 % Basophils % 0 % Neutrophils # 3.7 (1.3-7.7) k/uL Lymphocytes # 1.7 (1.0-4.8) k/uL Monocytes # 0.6 (0-1.0) k/uL Eosinophils # 0.0 (0-0.7) k/uL Basophils # 0.0 (0-0.2) k/uL Sodium 129 L (137-145) mmol/L Potassium 4.4 (3.5-5.1) mmol/L Chloride 91 L (98-107) mmol/L Carbon Dioxide 28 (22-30) mmol/L Anion Gap 10 mmol/L BUN 9 (9-20) mg/dL Creatinine 0.93 (0.66-1.25) mg/dL Est GFR (CKD-EPI)AfAm >90 (>60 ml/min/1.73 sqM) Est GFR (CKD-EPI)NonAf >90 (>60 ml/min/1.73 sqM) Glucose 97 (74-99) mg/dL POC Glucose (mg/dL) 90 (70-110) mg/dL POC Glu Project Manager Industrial [employer] Shivani Berrios Calcium 9.2 (8.4-10.2) mg/dL Magnesium 1.7 (1.6-2.3) mg/dL Total Bilirubin 0.5 (0.2-1.3) mg/dL AST 33 (17-59) U/L ALT 25 (4-49) U/L Alkaline Phosphatase 86 (38-126) U/L Total Protein 6.9 (6.3-8.2) g/dL Albumin 4.3 (3.5-5.0) g/dL Valproic Acid 73.9 ug/mL Disposition Clinical Impression: Seizures Disposition: HOME SELF-CARE Condition: Serious Instructions (If sedation given, give patient instructions): Recurrent Seizures in Adults (ED) Additional Instructions: Please do follow-up with primary care physician and neurologist in the next couple of days for recheck. Have them review anticonvulsant levels. Return for recurrent seizures, change in mental status, illness, worsening symptoms or other concerns. Is patient prescribed a controlled substance at d/c from ED?: No Referrals: Aman Smyth MD [Primary Care Provider] - 1-2 days Time of Disposition: 12:11
[2023-12-16 10:21] LABS: Basophils % (A) 0 %; Eosinophils % (A) 1 %; HCT 41.9 % (39.0-53.0); HGB 13.8 gm/dL (13.0-17.5); Lymphocytes # (A) 1.7 k/uL (1.0-4.8); Lymphocytes % (A) 27 %; MCH 30.6 pg (25.0-35.0); MCHC 32.9 g/dL (31.0-37.0); MCV 92.9 fL (80.0-100.0); Mean Platelet Volume 7.4; Monocytes # (A) 0.6 k/uL (0-1.0); Monocytes % (A) 9 %; Neutrophils # (A) 3.7 k/uL (1.3-7.7); Neutrophils % (A) 61 %; Platelet Count 258 k/uL (150-450); RBC 4.51 m/uL (4.30-5.90); RDW 13.2 % (11.5-15.5); WBC 6.1 k/uL (3.8-10.6)
[2023-12-16 10:37] LABS: ALT 25 U/L (4-49); AST 33 U/L (17-59); African American GFR (CKD) >90 (>60 ml/min/1.73 sqM); Albumin 4.3 g/dL (3.5-5.0); Alkaline Phosphatase 86 U/L (38-126); Blood Urea Nitrogen 9 mg/dL (9-20); Calcium 9.2 mg/dL (8.4-10.2); Carbon Dioxide 28 mmol/L (22-30); Glucose 97 mg/dL (74-99); Magnesium 1.7 mg/dL (1.6-2.3); Non-African American GFR(CKD) >90 (>60 ml/min/1.73 sqM); Sodium 129 mmol/L (137-145); Total Bilirubin 0.5 mg/dL (0.2-1.3); Total Protein 6.9 g/dL (6.3-8.2)
[2023-12-16 10:42] LABS: Valproic Acid (Depakene) 73.9 ug/mL
[2023-12-16 10:43] LABS: Anion Gap 10 mmol/L; Chloride 91 mmol/L (98-107); Potassium 4.4 mmol/L (3.5-5.1)
[2023-12-16] MEDS: LORazepam 2 MG/ML INJ IV STA (10:51)
[2023-12-16 10:58] LABS: Glucose,Whole Blood 90 mg/dL (70-110)
[2023-12-16] MEDS: SODIUM CHLORIDE 0.9% 1,000 ML IV STA (11:53)
[2023-12-16 12:43] VITALS: BP 139/80; PULSE 71; RESP 18
[2023-12-16 19:15] LABS: Carbamazepine (Tegretol) 8.2 UG/ML (4.0-12.0)
== END 2023-12-16 12:43 | disposition home or self-care (01) ==
LOC: EC 09:31
CPT/HCPCS: 36415; 80053; 80156; 80164; 80175; 83735; 85025; 93005; 96361; 96374; 99284

== ENCOUNTER 2024-01-04 20:31 | Inpatient (IN) | payer OTHER, MEDICARE ==
--- NOTE | 2024-01-04 20:55 | ED ---
Seizure HPI - General Chief Complaint: Seizure Stated Complaint: Seizure ETOH Time Seen by Provider: 01/04/24 20:38 Source: patient, EMS, RN notes reviewed, old records reviewed Mode of arrival: EMS Limitations: no limitations - History of Present Illness Initial Comments: This is a 58-year-old male to the ER for evaluation of seizure persistent seizure prior to arrival with possible a history of multiple seizures today but seizures are difficult to correlate because he has absent seizures patient is very stridorous breath and symptoms here in the emergency room not acting speaking or talking appropriately MD Complaint: seizure -: hour(s) -: second(s) Witnessed: no Seizure History: known seizure disorder Place: home Associated Symptoms: denies other symptoms Treatments Prior to Arrival: none - Related Data Home Medications Medication Instructions Recorded Confirmed Clopidogrel [Plavix] 75 mg PO DAILY@0800 03/16/17 01/05/24 Divalproex ER [Depakote ER] 1,000 mg PO BID@0800,199905/26/18 01/05/24 Multivitamins, Thera [Multivitamin 1 tab PO DAILY@139905/26/18 01/05/24 (formulary)] Niacin (Inositol Niacinate) 500 mg PO DAILY@139905/26/18 01/05/24 [Niacin 500 mg Capsule] Atorvastatin Calcium [Lipitor] 80 mg PO HS@199910/30/19 01/05/24 Folic Acid 0.8 mg PO DAILY@139910/30/19 01/05/24 amLODIPine [Norvasc] 2.5 mg PO HS@199910/30/19 01/05/24 Cholecalciferol [Vitamin D3 (125 125 mcg PO DAILY@139907/12/21 01/05/24 Mcg = 5000 Iu)] Ezetimibe [Zetia] 10 mg PO DAILY@79907/12/21 01/05/24 Thiamine [Vitamin B-1] 100 mg PO DAILY@139907/12/21 01/05/24 carBAMazepine 100 mg PO DAILY@79907/12/21 01/05/24 carBAMazepine 200 mg PO BID@1200,199907/12/21 01/05/24 rOPINIRole HCL [Requip] 1 mg PO BID@0800,199909/23/21 01/05/24 lamoTRIgine [LaMICtal] 100 mg PO BID 01/31/23 01/05/24 Brivaracetam [Briviact] 100 mg PO BID@0800,2000 10/11/23 01/05/24 Amoxicillin 875 mg PO PC-BID 01/05/24 01/05/24 Bimatoprost [Lumigan 0.01% Ophth 1 drop BOTH EYES HS 01/05/24 01/05/24 Soln] predniSONE [Deltasone] 20 mg PO AC-BRKFST 01/05/24 01/05/24 Previous Rx's Medication Instructions Recorded Pantoprazole [Protonix] 40 mg PO AC-BRKFST #30 tab 10/12/23 Allergies Allergy/AdvReac Type Severity Reaction Status Date / Time No Known Allergies Allergy Verified 01/05/24 08:46 Review of Systems ROS Statement: Those systems with pertinent positive or pertinent negative responses have been documented in the HPI. ROS Other: All systems not noted in ROS Statement are negative. Past Medical History Past Medical History: CVA/TIA, Diabetes Mellitus, Hyperlipidemia, Hypertension, Memory Impairment, Myocardial Infarction ([place]), Seizure Disorder, Sleep Apnea/CPAP/BIPAP Additional Past Medical History / Comment(s): TIA-some slight residual left sided weakness-resolved, "borderline diabetes"-diet control, no CPAP, has vagus nerve stimulator, hx migraines, epilepsy last seizure 1 month ago, seizures x2 (04/23/23) Last Myocardial Infarction Date:: 2015 History of Any Multi-Drug Resistant Organisms: None Reported Past Surgical History: Adenoidectomy, Ear Surgery, Heart Catheterization, Tonsillectomy Additional Past Surgical History / Comment(s): TUBES IN EARS, VAGUS NERVE STIMULATOR IMPLANT, responsive neuro stimulator placed 2021 Past Anesthesia/Blood Transfusion Reactions: Previous Problems w/ Anesthesia Additional Past Anesthesia/Blood Transfusion Reaction / Comment(s): STATES A LONG TIME TO WAKE UP AFTER ANESTHESIA. Past Psychological History: No Psychological Hx Reported Smoking Status: Never smoker Past Alcohol Use History: None Reported Past Drug Use History: None Reported - Past Family History Brother(s) Family Medical History: Cancer Additional Family Medical History / Comment(s): prostate CA with mets General Exam Limitations: no limitations General appearance: alert, in no apparent distress, anxious Head exam: Present: atraumatic, normocephalic, normal inspection Eye exam: Present: normal appearance, PERRL, EOMI. Absent: scleral icterus, conjunctival injection, periorbital swelling ENT exam: Present: normal exam, mucous membranes moist Neck exam: Present: normal inspection. Absent: tenderness, meningismus, lymphadenopathy Respiratory exam: Present: normal lung sounds bilaterally. Absent: respiratory distress, wheezes, rales, rhonchi, stridor Cardiovascular Exam: Present: regular rate, normal rhythm, normal heart sounds. Absent: systolic murmur, diastolic murmur, rubs, gallop, clicks GI/Abdominal exam: Present: soft, normal bowel sounds. Absent: distended, tenderness, guarding, rebound, rigid Extremities exam: Present: normal inspection, full ROM, normal capillary refill. Absent: tenderness, pedal edema, joint swelling, calf tenderness Back exam: Present: normal inspection Neurological exam: Present: alert, oriented X3, CN II-XII intact Psychiatric exam: Present: normal affect, normal mood Skin exam: Present: warm, dry, intact, normal color. Absent: rash Course Vital Signs 01/04/24 01/04/24 01/04/24 20:32 21:20 21:45 Temperature 99.1 F Pulse Rate 98 90 87 Pulse Rate [ Left] Respiratory 18 18 18 Rate Blood Pressure 185/99 165/99 169/98 Blood Pressure [Right Arm] O2 Sat by Pulse 98 98 96 Oximetry 01/04/24 01/05/24 01/05/24 23:36 00:05 04:00 Temperature Pulse Rate 78 77 68 Pulse Rate [ Left] Respiratory 16 16 18 Rate Blood Pressure 175/101 164/97 165/104 Blood Pressure [Right Arm] O2 Sat by Pulse 98 98 97 Oximetry 01/05/24 01/05/24 01/05/24 06:00 07:47 08:42 Temperature 97.9 F Pulse Rate 71 75 77 Pulse Rate [ Left] Respiratory 18 17 16 Rate Blood Pressure 148/87 161/102 152/90 Blood Pressure [Right Arm] O2 Sat by Pulse 97 98 Oximetry 01/05/24 01/05/24 01/05/24 10:05 11:56 14:20 Temperature Pulse Rate 84 84 86 Pulse Rate [ Left] Respiratory 17 18 18 Rate Blood Pressure 161/98 162/102 168/99 Blood Pressure [Right Arm] O2 Sat by Pulse 97 99 96 Oximetry 01/05/24 01/05/24 01/05/24 18:02 18:42 19:34 Temperature Pulse Rate 86 76 73 Pulse Rate [ Left] Respiratory 18 18 21 Rate Blood Pressure 169/105 142/90 145/85 Blood Pressure [Right Arm] O2 Sat by Pulse 99 99 Oximetry 01/05/24 01/05/24 20:00 20:07 Temperature 98.1 F 97.7 F Pulse Rate 70 Pulse Rate [ 82 Left] Respiratory 18 12 Rate Blood Pressure 153/98 Blood Pressure 163/101 [Right Arm] O2 Sat by Pulse 99 97 Oximetry - Reevaluation(s) Reevaluation #1: 01/04/24 22:37 Medical records reviewed Reevaluation #2: 01/04/24 22:37 Patient symptoms unchanged Reevaluation #3: 01/04/24 22:37 Patient informed of results and questions answered Reevaluation #4: Was pt. sent in by a medical professional or institution (, PA, SOFTWARE ASSET MANAGEMENT ANALYST, urgent care, hospital, or residential...) When possible be specific @ -no Did you speak to anyone other than the patient for history (EMS, parent, family, police, friend...)? What history was obtained from this source @ -no Did you review nursing and triage notes (agree or disagree)? Why? @ -agree Are old charts reviewed (outside hosp., previous admission, EMS record, old EKG, old radiological studies, urgent care reports/EKG's, residential records)? Report findings @ -yes Differential Diagnosis (chest pain, altered mental status, abdominal pain women, abdominal pain men, vaginal bleeding, weakness, fever, dyspnea, syncope, headache, dizziness, GI bleed, back pain, seizure, CVA, palpatations, mental health, musculoskeletal)? @ -prior EKG interpreted by me (3pts min.). @ -yes X-rays interpreted by me (1pt min.). @ -Chest negative for acute disease CT interpreted by me (1pt min.). @ -Yes negative for acute disease U/S interpreted by me (1pt. min.). @ -no What testing was considered but not performed or refused? (CT, X-rays, U/S, labs)? Why? @ -none What meds were considered but not given or refused? Why? @ -none Did you discuss the management of the patient with other professionals (professionals i.e. , PA, SOFTWARE ASSET MANAGEMENT ANALYST, lab, RT, psych nurse, social director, noise tester, teacher, special officer, telephonic nurse case manager)? Give summary @ -no Was smoking cessation discussed for >3mins.? @ -no Was critical care preformed (if so, how long)? @ -no Were there social determinants of health that impacted care today? How? (Homelessness, low income, unemployed, alcoholism, drug addiction, transportation, low edu. Level, literacy, decrease access to med. care, long-term, rehab)? @ -none Was there de-escalation of care discussed even if they declined (Discuss DNR or withdrawal of care, Hospice)? DNR status @ -no What co-morbidities impacted this encounter? (DM, HTN, Smoking, COPD, CAD, Cancer, CVA, ARF, Chemo, Hep., AIDS, mental health diagnosis, sleep apnea, morbid obesity)? @ -none Was patient admitted / discharged? Hospital course, mention meds given and route, prescriptions, significant lab abnormalities, going to OR and other pertinent info. @ - 58 male will be admitted for significant and recurrent seizure activity. Patient placed on antiseizure medication and admitted for monitoring Admitted Undiagnosed new problem with uncertain prognosis? @ -no Drug Therapy requiring intensive monitoring for toxicity (Heparin, Nitro, Insulin, Cardizem)? @ -no Were any procedures done? @ -no Diagnosis/symptom? @ -Seizures with prolonged postictal state Acute, or Chronic, or Acute on Chronic? @ -Acute Uncomplicated (without systemic symptoms) or Complicated (systemic symptoms)? @ -Complicated Side effects of treatment? @ -no Exacerbation, Progression, or Severe Exacerbation? @ -exacerbation Poses a threat to life or bodily function? How? (Chest pain, [place], [place], pneumonia, PE, COPD, DKA, ARF, appy, cholecystitis, CVA, Diverticulitis, Homicidal, Suicidal, threat to staff... and all critical care pts) @ -yes with recurrent seizures Reevaluation #5: Differential Seizure: Recurrent seizure disorder, febrile seizure, alcohol withdrawal, stimulants, meningitis, encephalitis, intercranial hemorrhage, intracranial tumor, stroke, e clampsia, thyrotoxicosis, hypocalcemia, hyponatremia, hypernatremia, hypomagnesemia, psychogenic, this is not meant to be an all-inclusive list. - Consultations Consultation #1: Spoke with skye who agrees to admit this patient Medical Decision Making - Medical Decision Making 58 male will be admitted for significant and recurrent seizure activity. Patient placed on antiseizure medication and admitted for monitoring - Lab Data Result diagrams: 01/08/24 02:43 01/08/24 02:43 Lab Results 01/04/24 01/04/24 01/04/24 Range/Units 20:50 20:50 21:28 WBC 10.9 H (3.8-10.6) k/uL RBC 4.71 (4.30-5.90) m/uL Hgb 14.6 (13.0-17.5) gm/dL Hct 43.8 (39.0-53.0) % MCV 93.0 (80.0-100.0) fL MCH 31.1 (25.0-35.0) pg MCHC 33.5 (31.0-37.0) g/dL RDW 13.1 (11.5-15.5) % Plt Count 373 (150-450) k/uL MPV 7.1 Neutrophils % 75 % Lymphocytes % 15 % Monocytes % 7 % Eosinophils % 0 % Basophils % 0 % Neutrophils # 8.2 H (1.3-7.7) k/uL Lymphocytes # 1.6 (1.0-4.8) k/uL Monocytes # 0.8 (0-1.0) k/uL Eosinophils # 0.0 (0-0.7) k/uL Basophils # 0.0 (0-0.2) k/uL Sodium 134 L (137-145) mmol/L Potassium 4.7 (3.5-5.1) mmol/L Chloride 94 L (98-107) mmol/L Carbon Dioxide 27 (22-30) mmol/L Anion Gap 13 mmol/L BUN 16 (9-20) mg/dL Creatinine 0.94 (0.66-1.25) mg/dL Est GFR (CKD-EPI)AfAm >90 (>60 ml/min/1.73 sqM) Est GFR (CKD-EPI)NonAf >90 (>60 ml/min/1.73 sqM) Glucose 129 H (74-99) mg/dL Calcium 9.9 (8.4-10.2) mg/dL Magnesium 2.0 (1.6-2.3) mg/dL Total Bilirubin 0.5 (0.2-1.3) mg/dL AST 46 (17-59) U/L ALT 29 (4-49) U/L Alkaline Phosphatase 80 (38-126) U/L Total Protein 8.1 (6.3-8.2) g/dL Albumin 4.7 (3.5-5.0) g/dL Salicylates <1.0 mg/dL Acetaminophen <10.0 ug/mL Influenza Type A (PCR) Not Detected (Not Detectd) Influenza Type B (PCR) Not Detected (Not Detectd) RSV (PCR) Not Detected (Not Detectd) SARS-CoV-2 (PCR) Not Detected (Not Detectd) - EKG Data -: EKG Interpreted by Me (EKG is sinus 95 ME 167 QRS 88 QTc 400) - Radiology Data Radiology results: report reviewed (Chest x-ray is negative for acute disease CT brain is negative for acute disease CT angio may be pharyngitis), image reviewed Disposition Clinical Impression: Postictal state, Seizures, Recurrent seizures, Upper respiratory infection, Pharyngitis, Altered mental status Disposition: ADMITTED IP TO THIS HOSP Condition: Fair Is patient prescribed a controlled substance at d/c from ED?: No Time of Disposition: 22:30
[2024-01-04 21:13] LABS: Basophils % (A) 0 %; Eosinophils % (A) 0 %; HCT 43.8 % (39.0-53.0); HGB 14.6 gm/dL (13.0-17.5); Lymphocytes # (A) 1.6 k/uL (1.0-4.8); Lymphocytes % (A) 15 %; MCH 31.1 pg (25.0-35.0); MCHC 33.5 g/dL (31.0-37.0); Mean Platelet Volume 7.1; Monocytes # (A) 0.8 k/uL (0-1.0); Monocytes % (A) 7 %; Neutrophils # (A) 8.2 k/uL (1.3-7.7); Neutrophils % (A) 75 %; Platelet Count 373 k/uL (150-450); RBC 4.71 m/uL (4.30-5.90); RDW 13.1 % (11.5-15.5); WBC 10.9 k/uL (3.8-10.6)
[2024-01-04] MEDS: levETIRAcetam IV 500 MG/5 ML VIAL IVP STA (21:14)
[2024-01-04 21:23] LABS: ALT 29 U/L (4-49); Acetaminophen <10.0 ug/mL; African American GFR (CKD) >90 (>60 ml/min/1.73 sqM); Albumin 4.7 g/dL (3.5-5.0); Anion Gap 13 mmol/L; Blood Urea Nitrogen 16 mg/dL (9-20); Calcium 9.9 mg/dL (8.4-10.2); Carbon Dioxide 27 mmol/L (22-30); Chloride 94 mmol/L (98-107); Glucose 129 mg/dL (74-99); Non-African American GFR(CKD) >90 (>60 ml/min/1.73 sqM); Salicylate <1.0 mg/dL; Sodium 134 mmol/L (137-145); Total Bilirubin 0.5 mg/dL (0.2-1.3); Total Protein 8.1 g/dL (6.3-8.2)
--- NOTE | 2024-01-04 21:29 | CT ---
EXAMINATION TYPE: CT brain wo con DATE OF EXAM: 01/04/2024 COMPARISON: 10/11/2023 INDICATION: c.o multiple seizures at home. pt has hx of seizures DLP: 1107.4 mGycm, Automated exposure control for dose reduction was used. CONTRAST: None CT of the brain is performed utilizing 3 mm thick sections through the posterior fossa and 3 mm thick sections through the remaining calvarium. Study is performed within 24 hours of arrival to the hosp [place]. No abnormal hyperdensity is present to suggest an acute intracranial hemorrhage. No mass lesion is evident. No acute infarcts are evident. Stimulator leads are present on the right. Ventricles and sulci are mildly prominent for the patient age. Paranasal sinuses as visualized are clear. There is been a right mastoidectomy. Left mastoid air cell s are underpneumatized. IMPRESSION: 1. No acute intracranial process. Follow up can be performed as clinically indicated. [facility], Workstation: [facility], 01/04/2024 9:26 PM
--- NOTE | 2024-01-04 21:50 | XR ---
EXAMINATION TYPE: XR chest 1V portable DATE OF EXAM: 01/04/2024 COMPARISON: 04/23/2023 INDICATION: Short of breath TECHNIQUE: Single frontal view of the chest is obtained. FINDINGS: The heart size is normal. Stimulator overlies left chest. The pulmonary vasculature is normal. The lungs are clear. IMPRESSION: 1. No acute pulmonary process. [facility], Workstation: [facility], 01/04/2024 9:47 PM
[2024-01-04 21:52] LABS: AST 46 U/L (17-59); Alkaline Phosphatase 80 U/L (38-126); Potassium 4.7 mmol/L (3.5-5.1)
[2024-01-04] MEDS ORDERED: NALOXONE 0.4 MG/ML 1 ML VIAL IV PRN (22:29)
[2024-01-04] MEDS ORDERED: ONDANSETRON 4 MG/2 ML VIAL IVP PRN (22:29)
[2024-01-04] MEDS ORDERED: MORPHINE SULFATE 4 MG/ML SYRINGE IV PRN (22:29)
[2024-01-04] MEDS ORDERED: LEVOFLOXACIN 750MG-D5W PMX 750 MG in DEXTROSE/WATER 1 150ML.BAG IVPB STA (22:36)
[2024-01-04] MEDS: SODIUM CHLORIDE 0.9% 1,000 ML IV SCH (23:28)
[2024-01-04] MEDS: LEVOFLOXACIN 750MG-D5W PMX 750 MG in DEXTROSE/WATER 1 150ML.BAG IVPB SCH (23:29)
--- NOTE | 2024-01-05 00:01 | CT ---
EXAM: CT Angiography Chest With Intravenous Contrast CLINICAL HISTORY: ITS.REASON CT Reason: pain TECHNIQUE: Axial computed tomographic angiography images of the chest with intravenous contrast. CTDI is 77.5 mGy and DLP is 1339.2 mGy-cm. This CT exam was performed using one or more of the following dose reduction techniques: automated exposure control, adjustment of the mA and/or kV according to patient size, and/or use of iterative reconstruction technique. MIP reconstructed images were created and reviewed. COMPARISON: No relevant prior studies available. FINDINGS: Pulmonary arteries: See below. Aorta: No acute findings. No aortic aneurysm or dissection. Lack of contrast in the pulmonary artery limits evaluation for PE. Lungs: Azygous fissure. No mass. No consolidation. Pleural space: Unremarkable. No significant effusion. No pneumothorax. Heart: Unremarkable. No cardiomegaly. No significant pericardial effusion. No evidence of RV dysfunction. Bones/joints: No acute fracture. No dislocation. Soft tissues: Unremarkable. Lymph nodes: Unremarkable. No enlarged lymph nodes. 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 IMPRESSION: 1. No aortic aneurysm or dissection. Lack of contrast in the pulmonary artery limits evaluation for PE. 2. 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
[2024-01-05 00:38] LABS: Amphetamine Screen,Urine Not Detected (NotDetected); Barbiturate Screen,Urine Not Detected (NotDetected); Benzodiazepines Screen,Urine Not Detected (NotDetected); Cocaine Screen,Urine Not Detected (NotDetected); Methadone Screen, Urine Not Detected (NotDetected); Opiate Screen,Urine Not Detected (NotDetected); Oxycodone Screen, Urine Not Detected (NotDetected); Phencyclidine Screen,Urine Not Detected (NotDetected); Tricyclic Antidepressant,Urine Not Detected (NotDetected); Urn Cannabinoid Scrn Not Detected (NotDetected)
--- NOTE | 2024-01-05 01:59 | CT ---
EXAM: CT Neck With Intravenous Contrast CLINICAL HISTORY: ITS.REASON CT Reason: pain TECHNIQUE: Axial computed tomography images of the neck with intravenous contrast. CTDI is 77.5 mGy and DLP is 1339.2 mGy-cm. This CT exam was performed using one or more of the following dose reduction techniques: automated exposure control, adjustment of the mA and/or kV according to patient size, and/or use of iterative reconstruction technique. COMPARISON: No relevant prior studies available. FINDINGS: Tonsils: No tonsillar enlargement. Larynx: Epiglottis is unremarkable. Mild fluid at the hypopharynx. Airway: Aerodigestive tract is patent. Bones: No acute fracture. Upper lungs: Clear. IMPRESSION: Mild fluid at the hypopharynx. Correlate with reflux versus pharyngitis.
--- NOTE | 2024-01-05 05:00 | P.HPIM ---
History of Present Illness H&P Date: 01/05/24 Chief Complaint: Multiple seizures Patient is a 58-year-old male with history of seizure disorder presented to the ED with seizures today. He mentions of having multiple seizures today. It started suddenly with jerking limb movements and convulsions lasts a couple of minutes. It takes him a couple of minutes to regain consciousness in the post ictal phase and is accompanied by headache, but doesn't experience any prodromal signs before having a seizure. He does have a headache right now which is a 5 out of 10 in severity. Mentions of having clusters of seizures. He started having seizures was when he was 12 years old and last seizure was a month ago. He is following with his neurologist on a regular basis for dosage adjustment and has nerve stimulated implanted for epilepsy. He is also experiencing some shortness of breath and cough since 2 weeks but doesn't have any phlegm production. He is currently on 2 L oxygen by nasal cannula. Denies head injury, tongue bite, fever, chills, cough, chest pain, palpitations, nausea, vomiting, diarrhea, blood in the urine or stool. ED workup revealed soft tissue neck CT that shows mild fluid in the hypopharynx, brain CT that does not show acute intracranial process, chest CTA shows no acute aneurysm or dissection, chest x-ray shows no acute pulmonary process. He was treated with levetiracetam, ropinirole in the ED. Review of systems: Pertinent positives and negatives as discussed in HPI, a complete review of systems was performed and all other systems are negative. PMH: Stroke, [place], TAISHA, HLD FMH: Diabetes mellitus Social history: Tobacco: Never smoker Alcohol: Denies use Recreational drugs: Denies use Travel: No recent travel history Sick contacts: None Physical examination: Vitals: T 99.1 Fahrenheit, P 98 bpm, RR 18, BP 185/99, O2 sat 98% on room air General: non toxic, no distress, appears at stated age, obese Derm: no unusual rashes/lesions, warm Head: atraumatic, normocephalic, symmetric Eyes: EOMI, anicteric sclera, pupils equal round reactive to light ENT: Nose and ears atraumatic Mouth: No tongue lesion, no lip lesion, mucus membranes moist Cardiovascular: S1S2 reg, no murmur, trace edema Lungs: CTA bilateral, no rhonchi, no rales, no accessory muscle use Abdominal: soft, nontender to palpation, no guarding Ext: muscle strength 5 out of 5 in all 4 extremities grossly, no gross muscle atrophy, no contractures, Neuro: CN II-XI grossly intact, no gross focal neuro deficits Psych: Alert, oriented, appropriate affect Assessment/Plan: Patient is a 58-year-old female with seizure disorder presented to the ED with multiple seizures. Case discussed with the ED provider and admission is accepted for recurrent seizures. #.Breakthrough Seizure, H/o seizure disorder Resume home meds Brivaracetam 100 mg p.o. twice daily, carbamazepine 200 mg p.o. twice daily, divalproex 1000 mg p.o. twice daily, lamotrigine 100 mg p.o. twice daily, ropinirole 1 mg p.o. twice daily. Neurology consulted Telemetry monitoring Seizure precuations Fall precautions Follows up with neurologist outpatient #. Hypertensive urgency BP admission 185/99, currently BP 164/97 resume home meds amlodipine 2.5mg PO HS #. Mild Hyponatremia Na 134 Monitor BMP #Anion gap acidosis AG 13 Monitor BMP #. Hyperlipidemia Continue atorvastatin 80 mg p.o. at bedtime, ezetimibe 10 mg p.o. daily #. History of CAD troponin 0.028 Trend troponin resume home meds when updated #. Nausea and vomiting Continue zofran 4mg IVP Q8HR PRN F:0.9 normal saline at 75ml/hr E:Replete as required N:Regular diet A:Ambulatory DVT prophylaxis: Lovenox 40 mg SQ daily The patient is admitted with an anticipated less than 2 midnight stay for evalua tion of seizures CODE STATUS: Full code Discussed with: Patient Anticipated discharge place: Home Past Medical History Past Medical History: CVA/TIA, Diabetes Mellitus, Hyperlipidemia, Hypertension, Memory Impairment, Myocardial Infarction ([place]), Seizure Disorder, Sleep Apnea/CPAP/BIPAP Additional Past Medical History / Comment(s): TIA-some slight residual left sided weakness-resolved, "borderline diabetes"-diet control, no CPAP, has vagus nerve stimulator, hx migraines, epilepsy last seizure 1 month ago, seizures x2 (04/23/23) Last Myocardial Infarction Date:: 2015 History of Any Multi-Drug Resistant Organisms: None Reported Past Surgical History: Adenoidectomy, Ear Surgery, Heart Catheterization, Tonsillectomy Additional Past Surgical History / Comment(s): TUBES IN EARS, VAGUS NERVE STIMULATOR IMPLANT, responsive neuro stimulator placed 2021 Past Anesthesia/Blood Transfusion Reactions: Previous Problems w/ Anesthesia Additional Past Anesthesia/Blood Transfusion Reaction / Comment(s): STATES A LONG TIME TO WAKE UP AFTER ANESTHESIA. Past Psychological History: No Psychological Hx Reported Smoking Status: Never smoker Past Alcohol Use History: None Reported Past Drug Use History: None Reported - Past Family History Brother(s) Family Medical History: Cancer Additional Family Medical History / Comment(s): prostate CA with mets Medications and Allergies Home Medications Medication Instructions Recorded Confirmed Type Clopidogrel [Plavix] 75 mg PO DAILY@79903/16/17 10/11/23 History Divalproex ER [Depakote ER] 1,000 mg PO BID@08,199905/26/18 10/11/23 History Multivitamins, Thera [Multivitamin 1 tab PO DAILY@139905/26/18 10/11/23 History (formulary)] Niacin (Inositol Niacinate) 500 mg PO DAILY@139905/26/18 10/11/23 History [Niacin 500 mg Capsule] Atorvastatin Calcium [Lipitor] 80 mg PO HS@199910/30/19 10/11/23 History Folic Acid 0.8 mg PO DAILY@139910/30/19 10/11/23 History amLODIPine [Norvasc] 2.5 mg PO HS@199910/30/19 10/11/23 History Cholecalciferol [Vitamin D3 (125 125 mcg PO DAILY@139907/12/21 10/11/23 History Mcg = 5000 Iu)] Ezetimibe [Zetia] 10 mg PO DAILY@79907/12/21 10/11/23 History Thiamine [Vitamin B-1] 100 mg PO DAILY@139907/12/21 10/11/23 History carBAMazepine 100 mg PO DAILY@79907/12/21 10/11/23 History carBAMazepine 200 mg PO BID@1200,199907/12/21 10/11/23 History rOPINIRole HCL [Requip] 1 mg PO BID@0800,199909/23/21 10/11/23 History lamoTRIgine [LaMICtal] 100 mg PO BID@08,199901/31/23 10/11/23 History Brivaracetam [Briviact] 100 mg PO BID@0800,199910/11/23 10/11/23 History Pantoprazole [Protonix] 40 mg PO AC-BRKFST #30 tab 10/12/23 Rx Allergies Allergy/AdvReac Type Severity Reaction Status Date / Time No Known Allergies Allergy Verified 01/04/24 20:38 Physical Exam Vitals: Vital Signs Temp Pulse Resp BP Pulse Ox 01/05/24 00:05 77 16 164/97 98 01/04/24 23:36 78 16 175/101 98 01/04/24 21:45 87 18 169/98 96 01/04/24 21:20 90 18 165/99 98 01/04/24 20:32 99.1 F 98 18 185/99 98 Intake and Output 01/04/24 01/04/24 01/05/24 14:59 22:59 06:59 Other: Weight 106.594 kg Results CBC & Chem 7: 01/05/24 04:36 01/05/24 04:36 Labs: Abnormal Lab Results - Last 24 Hours (Table) 01/04/24 01/04/24 Range/Units 20:50 20:50 WBC 10.9 H (3.8-10.6) k/uL Neutrophils # 8.2 H (1.3-7.7) k/uL Sodium 134 L (137-145) mmol/L Chloride 94 L (98-107) mmol/L Glucose 129 H (74-99) mg/dL Assessment and Plan Assessment: I have seen and evaluated the patient today. I Discussed the case with the resident and agree with the resident's findings I edited the assessment and plan as necessary as documented in the resident's note.
[2024-01-05 05:26] LABS: Basophils % (A) 0 %; Eosinophils % (A) 0 %; HCT 41.9 % (39.0-53.0); HGB 13.7 gm/dL (13.0-17.5); Lymphocytes % (A) 22 %; MCH 30.7 pg (25.0-35.0); MCHC 32.6 g/dL (31.0-37.0); Mean Platelet Volume 7.2; Monocytes # (A) 0.7 k/uL (0-1.0); Monocytes % (A) 8 %; Neutrophils # (A) 6.4 k/uL (1.3-7.7); Neutrophils % (A) 68 %; Platelet Count 333 k/uL (150-450); RBC 4.46 m/uL (4.30-5.90); RDW 13.2 % (11.5-15.5); WBC 9.4 k/uL (3.8-10.6)
[2024-01-05 05:48] LABS: ALT 27 U/L (4-49); AST 38 U/L (17-59); African American GFR (CKD) >90 (>60 ml/min/1.73 sqM); Albumin 4.1 g/dL (3.5-5.0); Alkaline Phosphatase 65 U/L (38-126); Anion Gap 10 mmol/L; Blood Urea Nitrogen 14 mg/dL (9-20); Calcium 9.1 mg/dL (8.4-10.2); Carbon Dioxide 26 mmol/L (22-30); Chloride 97 mmol/L (98-107); Glucose 106 mg/dL (74-99); Magnesium 1.9 mg/dL (1.6-2.3); Non-African American GFR(CKD) >90 (>60 ml/min/1.73 sqM); Potassium 4.4 mmol/L (3.5-5.1); Sodium 133 mmol/L (137-145); Total Bilirubin 0.4 mg/dL (0.2-1.3); Total Protein 7.1 g/dL (6.3-8.2)
[2024-01-05] MEDS: ENOXAPARIN 40 MG/0.4 ML SYRINGE SQ SCH (08:40)
--- NOTE | 2024-01-05 09:38 | P.PN ---
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 He presented to the emergency department with reports of recurrent seizure activity at home. Upon arrival to our facility, patient underwent evaluation in the emergency department. Vital signs upon arrival show blood pressure 185/99, heart rate 98, respiratory rate 18, temp 99.1 F, and SpO2 of 98% on room air. EKG completed showing normal sinus rhythm at 95 bpm with no noted T wave or ST abnormality showing no signs of acute ischemia upon personal review and interpretation. CT brain completed negative for acute intracranial process. Chest x-ray completed negative for acute cardiopulmonary process. Labs comple adilene and reviewed. CBC showing leukocytosis with WBC count of 10.9. BMP showing hyponatremia with sodium of 134 and hypochloremia with chloride of 94. Blood glucose was 129. Magnesium 2.0. Liver profile unremarkable. Troponin 0.028. 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 CT soft tissue neck with IV contrast showing mild fluid at the hypopharynx consistent with reflux. Salicylates less than 1.0. Acetaminophen less than 10. Urine drug screen negative. Influenza A, influenza B, RSV, and COVID were negative. Patient was admitted under our services with consultation to [facility]. Physical exam: Vital signs reviewed and stable. General: Nontoxic, no distress and appears stated age. Derm: Skin warm and dry, normal coloration for ethnicity. Head: normocephalic and symmetric. Scarring from previous craniotomy. Eyes: EOM's intact, no lid lag, and anicteric sclera Mouth: no lip lesions, mucus membranes moist Cardiovascular: regular rate and rhythm with normal S1S2, no murmur, positive posterior tibial pulses bilaterally, and cap refill < 2 seconds. Lungs: Respirations even, regular, and unlabored on room air. Lungs CTA bilaterally, no rhonchi, no rales, no wheezing, and no accessory muscle usage. Abdominal: soft, nontender to palpation, no guarding, no appreciable organomegaly Ext: ROM intact. No gross muscle atrophy, no edema, no contractures Neuro: Speech clear, face symmetrical and CN II-XII grossly intact with no noted focal neuro deficits Psych: Alert and oriented to person, place, time, and situation. Appropriate and pleasant affect. Assessment and Plan of Care: Recurrent breakthrough seizures. Epilepsy status post nerve stimulator placement March 2022 Previous TBI resulting in memory impairment -Neurology was consulted, appreciate recommendations. -Patient received Keppra 1000 mg IV in the emergency department. -Order placed for patient to resume Brivaracetam 100 mg twice daily, carbamazepine 100 mg daily and 200 mg nightly, Depakote 1000 mg twice daily, and Lamictal 100 mg twice daily. -Seizure precautions, aspiration precautions, and fall precautions in place. -Patient informed of [place] state law stating no driving until seizure free for 6 months. Patient also instructed to avoid climbing ladders, operating d angerous or heavy machinery or unsupervised swimming until seizure free for 6 months. -Telemetry monitoring -Order placed for carbamazepine, Depakote, and Lamictal levels to be drawn. 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 -Recommending outpatient follow-up/surveillance. Hypertension with hypertensive urgency upon arrival -Increased amlodipine to 5 mg daily. Hyperlipidemia -Patient to continue Zetia 10 mg daily and atorvastatin 80 mg nightly. Previous CVA -Continue Plavix 75 mg daily and atorvastatin 80 mg nightly. CODE STATUS: Full code DVT prophylaxis: Lovenox Anticipated discharge date: Pending clinical course Anticipated discharge place: Home Patient was seen independently by Nurse Pracitioner. This document was prepared using [employer] dictation software. Please allow for errors in wire taper, while rare they do occur. Von Falcon NP rendered care for this patient independently, reviewed the findings and plan as documented in the note above. I did not physically speak with or examine the patient on this date. Objective - Vital Signs Vital signs: Vital Signs Temp 97.9 F 01/05/24 07:47 Pulse 75 01/05/24 07:47 Resp 17 01/05/24 07:47 BP 161/102 01/05/24 07:47 Pulse Ox 98 01/05/24 07:47 FiO2 Intake & Output 01/04/24 01/05/24 01/05/24 18:59 06:59 18:59 Weight 106.594 kg 106.594 kg - Labs CBC & Chem 7: 01/06/24 06:14 01/06/24 06:14 Labs: Abnormal Lab Results - Last 24 Hours (Table) 01/04/24 01/04/24 01/05/24 Range/Units 20:50 20:50 04:36 WBC 10.9 H (3.8-10.6) k/uL Neutrophils # 8.2 H (1.3-7.7) k/uL Sodium 134 L 133 L (137-145) mmol/L Chloride 94 L 97 L (98-107) mmol/L Glucose 129 H 106 H (74-99) mg/dL
[2024-01-05] MEDS: CHOLECALCIFEROL 125 MCG (5000 IU) TABLET PO SCH (09:57)
[2024-01-05] MEDS: PANTOPRAZOLE 40 MG TABLET PO SCH (09:57)
[2024-01-05] MEDS: CLOPIDOGREL 75 MG TAB PO SCH (09:58)
[2024-01-05] MEDS: carBAMazepine 200 MG TAB PO SCH ×2 (09:58→12:00)
[2024-01-05] MEDS: FOLIC ACID 1 MG TAB PO SCH (09:58)
[2024-01-05] MEDS: AMOXICILLIN 875 MG TAB PO SCH (12:00)
[2024-01-05] MEDS: EZETIMIBE 10 MG TAB PO SCH (12:00)
[2024-01-05] MEDS: DIVALPROEX ER 500 MG TAB.ER.24H PO SCH (14:17)
[2024-01-05] MEDS: MULTIVITAMINS, THERA 1 EACH TAB PO SCH (14:18)
[2024-01-05] MEDS: THIAMINE 100 MG TAB PO SCH (14:18)
[2024-01-05] MEDS: lamoTRIgine 100 MG TAB PO SCH (14:18)
[2024-01-05] MEDS: NIACIN TR 500 MG CAPLET PO SCH (14:20)
[2024-01-05 17:47] LABS: Valproic Acid (Depakene) 31.9 ug/mL
[2024-01-05] MEDS: BRIVARACETAM 100 MG PO SCH (19:30)
[2024-01-05] MEDS: ATORVASTATIN 80 MG TAB PO SCH (19:35)
[2024-01-05] MEDS: amLODIPine 5 MG TAB PO SCH (19:37)
[2024-01-05] MEDS ORDERED: DIVALPROEX ER 500 MG TAB.ER.24H PO SCH (20:00)
[2024-01-05] MEDS ORDERED: lamoTRIgine 100 MG TAB PO SCH (20:00)
[2024-01-05] MEDS ORDERED: amLODIPine 2.5 MG TAB PO SCH (20:00)
[2024-01-05] MEDS: LATANOPROST 0.005% OPHTH DROPS 2.5 ML BTL BOTH EYES SCH (21:30)
[2024-01-06] MEDS: ACETAMINOPHEN TAB 325 MG TAB PO PRN (05:49)
[2024-01-06 08:29] LABS: HGB 13.7 g/dL (13.0-17.0); MCH 31.3 pg (27.0-32.0); MCHC 33.4 g/dL (32.0-37.0); MCV 93.6 FL (80.0-97.0); Mean Platelet Volume 9.7 FL (9.5-12.2); NRBC Per 100 WBC 0 X 10*3/uL (0.00-0.01); Platelet Count 303 X 10*3/uL (140-440); RBC 4.38 X 10*6/uL (4.40-5.60); RDW 13.3 % (11.5-14.5); WBC 10.75 X 10*3/uL (4.50-10.00)
[2024-01-06 08:38] LABS: ALT 24 U/L (10-49); AST 31 U/L (14-35); Alkaline Phosphatase 73 U/L (41-126); BUN/Creat Ratio 11.78 Ratio (12.00-20.00); Blood Urea Nitrogen 10.6 mg/dL (9.0-27.0); Carbon Dioxide 24.7 mmol/L (21.6-31.8); Chloride 96 mmol/L (96-109); Globulin 2.5 g/dL (1.6-3.3); Glucose 100 mg/dL (70-110); Magnesium 1.9 mg/dL (1.5-2.4); Potassium 4.6 mmol/L (3.5-5.5); Sodium 133 mmol/L (135-145); Total Bilirubin 0.3 mg/dL (0.3-1.2); Total Protein 6.5 g/dL (6.2-8.2)
[2024-01-06 11:10] LABS: Carbamazepine (Tegretol) 6.1 UG/ML (4.0-12.0)
--- NOTE | 2024-01-06 11:29 | US ---
EXAMINATION TYPE: US venous doppler duplex LE LT DATE OF EXAM: 01/06/2024 10:59 AM COMPARISON: US 2016 CLINICAL INDICATION: Male, 58 years old with history of LLE edema; SIDE PERFORMED: Left TECHNIQUE: The lower extremity deep venous system is examined utilizing real time linear array sonog husam with graded compression, color doppler sonography, and spectral doppler. VESSELS IMAGED: Common Femoral Vein Deep Femoral Vein Greater Saphenous Vein * Femoral Vein Popliteal Vein Small Saphenous Vein * Proximal Calf Veins (* superficial vessels) Left Leg: Appears negative for DVT IMPRESSION: Grayscale, color doppler, spectral doppler imaging performed of the deep veins of the lo wer extremities. There is normal flow, compressibility, vascular waveforms. [facility], , 01/06/2024 11:27 AM
--- NOTE | 2024-01-06 11:38 | P.CNNES ---
History of Present Illness Consult date: 01/05/24 Requesting physician: Juancarlos Mcdaniel Reason for Consult: Seizure History of Present Illness: Patient is a 58-year-old male with history of medically intractable epilepsy, follows up with Dr. Grigsby, came to the hospital by ambulance yesterday at 8:31 PM for recurrent seizures. Patient states he has 4-5 seizures yesterday (Wednesday). He believes that he is suffering from cold for last 2 weeks, which may have triggered the seizures. He denies any tongue bite or loss of control of urine. He states that he had 1 seizure on Wednesday. He could not tell when was a seizure prior to that. Patient states that he saw his neurologist not too long ago, about 1 month ago, and no changes were made in the seizure medications. Patient states that his has spoken to his neurologist nurse practitioner Cora this morning, and informed about patient's admission. They have not responded back yet. As per EMS flowsheet, they were called for patient having report of multiple seizures and hypertension. When EMS arrived patient was found alert and oriented x 4, complaining of seizures that started around 9 this morning and headache. Patient mentioned that he had multiple seizures all day and did not call sooner because he thought they would pass. Patient also complaining of headache. He thinks he may have had a cold. Patient's vitals at the scene was blood pressure 185/124, which came up to 186/126. Pulse rate 101, respiration 18, saturation 97%. Vital signs on arrival blood pressure 185/95, came down to 165/99. Pulse rate 98 temperature 99.1. Blood test shows normal CBC, sodium 134 normal electrolytes, renal and hepatic panel. Troponin negative. Urine drug screen negative. Influenza RSV and coronavirus PCR negative. Patient's home medications include Plavix 75 mg, Depakote 1000 mg twice daily, Lipitor 80 mg, folic acid 0.8 mg, Zetia, Tegretol 200 mg twice daily at 12 noon and 8 PM and 100 mg morning. Also on Requip, Lamictal 100 mg twice daily, Briviact 100 mg twice daily Protonix and prednisone. This is the same amount of medications he was taking on the last hospital visit, when seen by myself. Patient was recommended to follow-up with his neurologist. Patient has been seen by myself on 10/12/2023 for breakthrough seizures with, as well as 10/31/2019 when he had presented with similar scenario. Patient was found home unresponsive and he had felt that he likely had a seizure. Patient has mentioned that he has history of seizures since he was age 12. Patient was on Depakote 750 mg every 12 hours (now 1000 mg twice a day), Lamictal 150 mg twice a day (now 100 mg twice a day), Keppra 1500 mg twice a day (which has been discontinued, and now switched to Briviact 100 mg twice daily about 4-5 months ago), and Carbatrol 300 mg twice a day (now patient is on Carbatrol 200 mg twice a day at noon and 8 PM and 100 mg at 8 AM). Patient follows up with Dr. Grigsby. Patient has mentioned that his seizures localizes to the right side. Patient gets petit mal seizures. He says that his "stomach gets going", then gets weak feeling. His seizure lasts for a couple minutes. He denies any tongue bite or loss of control of urine. He gets seizures every month or every 1-2 months. Patient also has seen Dr. Montes in [place] and patient underwent magnetoencephalography on 07/22/2021. Patient has a VNS, but feels it does not help. Past Medical History Past Medical History: CVA/TIA, Diabetes Mellitus, Hyperlipidemia, Hypertension, Memory Impairment, Myocardial Infarction (ME), Seizure Disorder, Sleep Apnea/CPAP/BIPAP Additional Past Medical History / Comment(s): TIA-some slight residual left sided weakness-resolved, "borderline diabetes"-diet control, no CPAP, has vagus nerve stimulator, hx migraines, epilepsy last seizure 1 month ago, seizures x2 (04/23/23) Last Myocardial Infarction Date:: 2015 History of Any Multi-Drug Resistant Organisms: None Reported Past Surgical History: Adenoidectomy, Ear Surgery, Heart Catheterization, Tonsillectomy Additional Past Surgical History / Comment(s): TUBES IN EARS, VAGUS NERVE STIMULATOR IMPLANT, responsive neuro stimulator placed 2021 Past Anesthesia/Blood Transfusion Reactions: Previous Problems w/ Anesthesia Additional Past Anesthesia/Blood Transfusion Reaction / Comment(s): STATES A LONG TIME TO WAKE UP AFTER ANESTHESIA. Smoking Status: Never smoker - Past Family History Brother(s) Family Medical History: Cancer Additional Family Medical History / Comment(s): prostate CA with mets Medications and Allergies Home Medications Medication Instructions Recorded Confirmed Type Clopidogrel [Plavix] 75 mg PO DAILY@0800 03/16/17 01/05/24 History Divalproex ER [Depakote ER] 1,000 mg PO BID@0800,199905/26/18 01/05/24 History Multivitamins, Thera [Multivitamin 1 tab PO DAILY@139905/26/18 01/05/24 History (formulary)] Niacin (Inositol Niacinate) 500 mg PO DAILY@139905/26/18 01/05/24 History [Niacin 500 mg Capsule] Atorvastatin Calcium [Lipitor] 80 mg PO HS@199910/30/19 01/05/24 History Folic Acid 0.8 mg PO DAILY@139910/30/19 01/05/24 History amLODIPine [Norvasc] 2.5 mg PO HS@199910/30/19 01/05/24 History Cholecalciferol [Vitamin D3 (125 125 mcg PO DAILY@139907/12/21 01/05/24 History Mcg = 5000 Iu)] Ezetimibe [Zetia] 10 mg PO DAILY@0800 07/12/21 01/05/24 History Thiamine [Vitamin B-1] 100 mg PO DAILY@139907/12/21 01/05/24 History carBAMazepine 100 mg PO DAILY@0800 07/12/21 01/05/24 History carBAMazepine 200 mg PO BID@1200,199907/12/21 01/05/24 History rOPINIRole HCL [Requip] 1 mg PO BID@0800,199909/23/21 01/05/24 History lamoTRIgine [LaMICtal] 100 mg PO BID 01/31/23 01/05/24 History Brivaracetam [Briviact] 100 mg PO BID@0800,199910/11/23 01/05/24 History Pantoprazole [Protonix] 40 mg PO AC-BRKFST #30 tab 10/12/23 01/05/24 Rx Amoxicillin 875 mg PO PC-BID 01/05/24 01/05/24 History Bimatoprost [Lumigan 0.01% Ophth 1 drop BOTH EYES HS 01/05/24 01/05/24 History Soln] predniSONE [Deltasone] 20 mg PO AC-BRKFST 01/05/24 01/05/24 History Allergies Allergy/AdvReac Type Severity Reaction Status Date / Time No Known Allergies Allergy Verified 01/05/24 08:46 Physical Examination - Vital Signs Vital Signs: Vital Signs Temp Pulse Pulse Resp BP BP Pulse Ox 01/05/24 20:07 97.7 F 70 12 153/98 97 01/05/24 20:00 98.1 F 82 18 163/101 99 01/05/24 19:34 73 21 145/85 01/05/24 18:42 76 18 142/90 99 01/05/24 18:02 86 18 169/105 99 01/05/24 14:20 86 18 168/99 96 01/05/24 11:56 84 18 162/102 99 01/05/24 10:05 84 17 161/98 97 01/05/24 08:42 77 16 152/90 01/05/24 07:47 97.9 F 75 17 161/102 98 01/05/24 06:00 71 18 148/87 97 01/05/24 04:00 68 18 165/104 97 01/05/24 00:05 77 16 164/97 98 01/04/24 23:36 78 16 175/101 98 Intake and Output 01/05/24 01/05/24 01/05/24 06:59 14:59 22:59 Other: Weight 106.594 kg Patient is a middle-aged male, in no acute distress. Patient is alert awake oriented to time place and person. He knows it is [facility] imported on [place]. He thinks it is September and the year is 2023. Speech and language functions are normal. Patient can name and repeat very well. No aphasia or dysarthria. Attention, concentration and fund of knowledge is adequate. Detailed cognitive function testing deferred. On cranial nerve examination, pupils are equal, round and reacting to light, visual kaur are full on confrontation, with no neglect on double simultaneous stimulation. Extraocular muscles are intact with no nystagmus. Face is symmetric, but with active testing, he has slight right-sided asymmetry, tongue protrudes to the midline. Palatal elevation and sensation normal, hearing and shoulder shrug normal, facial sensation normal. No evidence of oral trauma. On muscle strength testing, there is no pronator drift and the strength is normal in arms and legs distally and proximally. Right elbow is sore from falls. Deep tendon reflexes are symmetric trace in the upper limbs, 1+ at the knees and plantars downgoing. Sensory to touch is equal with no neglect on double simultaneous stimulation. Cerebellar function showed tremulousness for [id number] testing bilaterally but no ataxia. No ataxia for [id number] testing on either side. Tone and bulk of muscles normal. Gait deferred.. On general examination, there is no carotid bruit or murmur, S1-S2 audible. Chest is clear on consultation. Abdomen is soft nontender. No organomegaly, bowel sounds present. Peripheral pulses are present. No peripheral edema. Results - Laboratory Findings CBC and BMP: 01/06/24 06:14 01/06/24 06:14 Abnormal Lab Findings: Abnormal Labs 01/04/24 01/04/24 01/05/24 20:50 20:50 04:36 WBC 10.9 H Neutrophils # 8.2 H Sodium 134 L 133 L Chloride 94 L 97 L Glucose 129 H 106 H Assessment and Plan Assessment: * Medically intractable epilepsy, came with breakthrough recurrent seizures. Exact cause of breakthrough seizure unclear. He is compliant with the medications, levels are therapeutic. * Presence of VNS and RNS. Patient is on 4 antiepileptic medication with therapeutic doses and levels. Patient is fully compliant with medications. * History of right Hammonds's palsy * Diabetes * Hypertension * Obesity * Sleep apnea Plan: * Patient's breakthrough seizure is of unclear cause. He is compliant with medications. * Continue seizure medications including Depakote 1000 mg twice a day, Lamictal 100 mg twice a day, Briviact 100 mg twice daily and Carbatrol 200 mg twice a day (at 2 PM and 8 PM) and 100 mg at 8 AM. * Depakote level is subtherapeutic 31.9, Tegretol 6.1 (4-12). Lamictal level 3.8 (2-15). Patient is on Briviact. * I will try to contact patient's neurologist in the morning. Patient's also has contacted his neurologist earlier today and talk to Cora, his FUEL CELL REPAIRER. * Continue Plavix 75 mg, Zetia 10 mg and Lipitor 80 mg. * Recommend patient follow up with his neurologist outpatient within 1-2 weeks. * Patient was informed of [place] state law of no driving unless seizure free for 6 months, climbing ladders, operating dangerous machinery or unsupervised swimming. * Neurology will follow. * Thank you for the consult.
--- NOTE | 2024-01-06 11:50 | P.PN ---
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 He presented to the emergency department with reports of recurrent seizure activity at home. Upon arrival to our facility, patient underwent evaluation in the emergency department. Vital signs upon arrival show blood pressure 185/99, heart rate 98, respiratory rate 18, temp 99.1 F, and SpO2 of 98% on room air. EKG completed showing normal sinus rhythm at 95 bpm with no noted T wave or ST abnormality showing no signs of acute ischemia upon personal review and interpretation. CT brain completed negative for acute intracranial process. Chest x-ray completed negative for acute cardiopulmonary process. Labs comple adilene and reviewed. CBC showing leukocytosis with WBC count of 10.9. BMP showing hyponatremia with sodium of 134 and hypochloremia with chloride of 94. Blood glucose was 129. Magnesium 2.0. Liver profile unremarkable. Troponin 0.028. 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 CT soft tissue neck with IV contrast showing mild fluid at the hypopharynx consistent with reflux. Salicylates less than 1.0. Acetaminophen less than 10. Urine drug screen negative. Influenza A, influenza B, RSV, and COVID were negative. Patient was admitted under our services with consultation to [facility]. Physical exam: Patient reporting dizziness persistent this morning but reports resolution of previous reported headache. Patient otherwise reports no complaints at this time. He has had no further seizure activity. Vital signs reviewed and stable. General: Nontoxic, no distress and appears stated age. Derm: Skin warm and dry, normal coloration for ethnicity. Head: normocephalic and symmetric. Scarring from previous craniotomy. Eyes: EOM's intact, no lid lag, and anicteric sclera Mouth: no lip lesions, mucus membranes moist Cardiovascular: regular rate and rhythm with normal S1S2, no murmur, positive posterior tibial pulses bilaterally, and cap refill < 2 seconds. Lungs: Respirations even, regular, and unlabored on room air. Lungs CTA bilaterally, no rhonchi, no rales, no wheezing, and no accessory muscle usage. Abdominal: soft, nontender to palpation, no guarding, no appreciable organomegaly Ext: ROM intact. No gross muscle atrophy, no edema, no contractures Neuro: Speech clear, face symmetrical and CN II-XII grossly intact with no noted focal neuro deficits Psych: Alert and oriented to person, place, time, and situation. Appropriate and pleasant affect. Assessment and Plan of Care: Recurrent breakthrough seizures. Epilepsy status post nerve stimulator placement March 2022 Previous TBI resulting in memory impairment -Neurology was consulted, reviewed documentation in chart. -Patient received Keppra 1000 mg IV in the emergency department. -Order placed for patient to resume Brivaracetam 100 mg twice daily, carbamazepine 100 mg daily and 200 mg nightly, Depakote 1000 mg twice daily, and Lamictal 100 mg twice daily. -Seizure precautions, aspiration precautions, and fall precautions in place. -Patient informed of [employer] law stating no driving until seizure free for 6 months. Patient also instructed to avoid climbing ladders, operating dangerous or heavy machinery or unsupervised swimming until seizure free for 6 months. -Telemetry monitoring -Depakote levels subtherapeutic at 31.9. -Carbamazepine levels within therapeutic range at 6.1. -Awaiting Lamictal levels to result. 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 -Recommending outpatient follow-up/surveillance. Hypertension with hypertensive urgency upon arrival -Increased amlodipine to 5 mg daily. Hyperlipidemia -Patient to continue Zetia 10 mg daily and atorvastatin 80 mg nightly. Previous CVA -Continue Plavix 75 mg daily and atorvastatin 80 mg nightly. Data and imaging reviewed: Vital signs reviewed showing blood pressure 133/79, heart rate 80, respiratory rate 18, temp 97.9 F, and SpO2 of 98% on 2 L. CBC unremarkable with the exception of slight leukocytosis with WBC count of 10.75. BMP showing hyponatremia with sodium 133 and slightly elevated anion gap of 12.30. Blood glucose 100. 1.9. Liver profile unremarkable. Depakote level subtherapeutic at 31.9 and carbamazepine levels within therapeutic range at 6.1. CODE STATUS: Full code DVT prophylaxis: Lovenox Anticipated discharge date: Pending clinical course Anticipated discharge place: Home Patient was seen independently by Nurse Pracitioner. This document was prepared using [employer] dictation software. Please allow for errors in truck engine technician, while rare they do occur. [place] RESEARCH COORDINATOR rendered care for this patient independently, reviewed the findings and plan as documented in the note above. I did not physically speak with or examine the patient on this date. Objective - Vital Signs Vital signs: Vital Signs Temp 98.0 F 01/06/24 01:45 Pulse 78 01/06/24 01:45 Resp 20 01/06/24 01:45 BP 145/93 01/06/24 01:45 Pulse Ox 96 01/06/24 08:01 FiO2 Intake & Output 01/05/24 01/06/24 01/06/24 18:59 06:59 18:59 Output Total 500 Balance -500 Weight 106.594 kg Output: Stool 500 - Labs CBC & Chem 7: 01/06/24 06:14 01/06/24 06:14 Labs: Abnormal Lab Results - Last 24 Hours (Table) 01/06/24 01/06/24 Range/Units 06:14 06:14 WBC 10.75 H (4.50-10.00) X 10*3/uL RBC 4.38 L (4.40-5.60) X 10*6/uL Sodium 133 L (135-145) mmol/L Anion Gap 12.30 H (4.00-12.00) mmol/L BUN/Creatinine Ratio 11.78 L (12.00-20.00) Ratio
[2024-01-07] MEDS: hydrALAZINE HCL 20 MG/ML 1 ML VIAL IVP STA (02:57)
[2024-01-07] MEDS: hydrALAZINE HCL 20 MG/ML 1 ML VIAL IM STA (03:25)
[2024-01-07] MEDS ORDERED: LORazepam 2 MG/ML INJ IV PRN (07:27)
[2024-01-07] MEDS: LORazepam 2 MG/ML INJ IV STA (07:37)
--- NOTE | 2024-01-07 09:12 | P.PN ---
Subjective Progress Note Date: 01/06/24 Patient was seen for a follow-up, no further seizures reported. Patient is doing fine. Objective - Vital Signs Vital signs: Vital Signs Temp 97.9 F 01/06/24 11:40 Pulse 86 01/06/24 12:30 Resp 16 01/06/24 11:40 BP 153/94 01/06/24 12:30 Pulse Ox 96 01/06/24 11:40 FiO2 Intake & Output 01/05/24 01/06/24 01/06/24 18:59 06:59 18:59 Output Total 500 250 Balance -500 -250 Weight 106.594 kg Output: Urine 250 Stool 500 - Exam Unchanged. - Labs CBC & Chem 7: 01/06/24 06:14 01/06/24 06:14 Labs: Abnormal Lab Results - Last 24 Hours (Table) 01/06/24 01/06/24 Range/Units 06:14 06:14 WBC 10.75 H (4.50-10.00) X 10*3/uL RBC 4.38 L (4.40-5.60) X 10*6/uL Sodium 133 L (135-145) mmol/L Anion Gap 12.30 H (4.00-12.00) mmol/L BUN/Creatinine Ratio 11.78 L (12.00-20.00) Ratio Assessment and Plan Assessment: * Medically intractable epilepsy, came with breakthrough recurrent seizures. Exact cause of breakthrough seizure unclear. He is compliant with the medications, levels are therapeutic. * Presence of VNS and RNS. Patient is on 4 antiepileptic medication with therapeutic doses and levels. Patient is fully compliant with medications. * History of right Hammonds's palsy * Diabetes * Hypertension * Obesity * Sleep apnea Plan: * Patient's breakthrough seizure is of unclear cause. He is compliant with medications. * I spoke to patient's neurologist Dr. grigsby on the phone. He mentions that he has prescribed Nayzilam (Versed nasal spray) for cluster of seizures, but his always fails to administer for cluster of seizures to prevent recurrent ER visits. We will check with patient's , if she administered the nasal spray with this cluster of seizures. However she is working and cannot take phone calls at this time. Dr. Grigsby recommended to increase Briviact to 100 mg in the morning and 150 mg at night for 14 days, and then increase to Briviact 150 mg twice daily. * Continue seizure medications including Depakote 1000 mg twice a day, Lamictal 100 mg twice a day, Briviact 100 mg twice daily and Carbatrol 200 mg twice a day (at 2 PM and 8 PM) and 100 mg at 8 AM. * Depakote level is subtherapeutic 31.9, Tegretol 6.1 (4-12). Lamictal level 3.8 (2-15). Patient is compliant with medications. * Continue Plavix 75 mg, Zetia 10 mg and Lipitor 80 mg. * Recommend patient follow up with his neurologist outpatient within 1-2 weeks. * Patient was informed of [place] state law of no driving unless seizure free for 6 months, climbing ladders, operating dangerous machinery or unsupervised swimming.
--- NOTE | 2024-01-07 16:56 | P.PN ---
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 He presented to the emergency department with reports of recurrent seizure activity at home. Upon arrival to our facility, patient underwent evaluation in the emergency department. Vital signs upon arrival show blood pressure 185/99, heart rate 98, respiratory rate 18, temp 99.1 F, and SpO2 of 98% on room air. EKG completed showing normal sinus rhythm at 95 bpm with no noted T wave or ST abnormality showing no signs of acute ischemia upon personal review and interpretation. CT brain completed negative for acute intracranial process. Chest x-ray completed negative for acute cardiopulmonary process. Labs comple adilene and reviewed. CBC showing leukocytosis with WBC count of 10.9. BMP showing hyponatremia with sodium of 134 and hypochloremia with chloride of 94. Blood glucose was 129. Magnesium 2.0. Liver profile unremarkable. Troponin 0.028. 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 CT soft tissue neck with IV contrast showing mild fluid at the hypopharynx consistent with reflux. Salicylates less than 1.0. Acetaminophen less than 10. Urine drug screen negative. Influenza A, influenza B, RSV, and COVID were negative. Patient was admitted under our services with consultation to de urology. Physical exam: Patient is fully evaluated at bedside. also at bedside with patient. Patient had 4 reported witnessed breakthrough seizures this morning. Per patient's and nursing at bedside patient has not been receiving his Brivaracetam since admission as his states that she forgot to bring it in and brought it in this morning after she heard he had another breakthrough seizure. Patient has also received 4 mg of Ativan for seizure activity this morning. Neurologist notified. Patient complains of mild headache otherwise denies any complaints at this time. He reports feeling very tired. Vital signs reviewed and stable. General: Nontoxic, no distress and appears stated age. Derm: Skin warm and dry, normal coloration for ethnicity. Head: normocephalic and symmetric. Scarring from previous craniotomy. Eyes: EOM's intact, no lid lag, and anicteric sclera Mouth: no lip lesions, mucus membranes moist Cardiovascular: regular rate and rhythm with normal S1S2, no murmur, positive posterior tibial pulses bilaterally, and cap refill < 2 seconds. Lungs: Respirations even, regular, and unlabored on room air. Lungs CTA bilaterally, no rhonchi, no rales, no wheezing, and no accessory muscle usage. Abdominal: soft, nontender to palpation, no guarding, no appreciable organomegaly Ext: ROM intact. No gross muscle atrophy, no edema, no contractures Neuro: Speech clear, face symmetrical and CN II-XII grossly intact with no noted focal neuro deficits Psych: Alert and oriented to person, place, time, and situation. Appropriate and pleasant affect. Assessment and Plan of Care: Recurrent breakthrough seizures. Epilepsy status post nerve stimulator placement March 2022 Previous TBI resulting in memory impairment -Neurology was consulted, reviewed documentation in chart. -Continue brivaracetam 100 mg twice daily, carbamazepine 100 mg daily and 200 mg nightly, Depakote 1000 mg twice daily, and Lamictal 100 mg twice daily. -Seizure precautions, aspiration precautions, and fall precautions in place. -Patient informed of [place] state law stating no driving until seizure free for 6 months. Patient also instructed to avoid climbing ladders, operating dangerous or heavy machinery or unsupervised swimming until seizure free for 6 months. -Telemetry monitoring -Depakote levels subtherapeutic at 31.9. -Carbamazepine levels within therapeutic range at 6.1. -Lamictal levels therapeutic at 3.0. 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 -Recommending outpatient follow-up/surveillance. Hypertension with hypertensive urgency upon arrival -Increased amlodipine to 5 mg daily and blood pressures improving with morning blood pressure of 144/82. Hyperlipidemia -Patient to continue Zetia 10 mg daily and atorvastatin 80 mg nightly. Previous CVA -Continue Plavix 75 mg daily and atorvastatin 80 mg nightly. Data and imaging reviewed: Vital signs reviewed showing blood pressure 144/82, heart rate 104, respiratory rate 19, temp 98.2 F, and SpO2 of 98% on room air. CBC unremarkable with the exception of slight leukocytosis with WBC count of 10.75. BMP showing hyponatremia with sodium 133 and slightly elevated anion gap of 12.30. Blood glucose 100. 1.9. Liver profile unremarkable. Depakote level subtherapeutic at 31.9 and carbamazepine levels within therapeutic range at 6.1. Lamictal levels therapeutic at 3.0. CODE STATUS: Full code DVT prophylaxis: Lovenox Anticipated discharge date: Pending clinical course Anticipated discharge place: Home Patient was seen independently by Nurse Pracitioner. This document was prepared using [employer] dictation software. Please allow for errors in sergeant of officers, while rare they do occur. I reviewed the documentation as provided by the LIDYA above, who is the original author of this note. I agree with the documented assessment and plan, with the following changes: none Objective - Vital Signs Vital signs: Vital Signs Temp 97.9 F 01/07/24 02:00 Pulse 90 01/07/24 02:00 Resp 14 01/07/24 02:00 BP 124/76 01/07/24 03:25 Pulse Ox 96 01/07/24 02:00 FiO2 Intake & Output 01/06/24 01/07/24 01/07/24 18:59 06:59 18:59 Intake Total 540 Output Total 250 1974 Balance -250 -1435 Intake: Oral 540 Output: Urine 250 1974 - Labs CBC & Chem 7: 01/06/24 06:14 01/06/24 06:14
[2024-01-08 10:05] LABS: BUN/Creat Ratio 11.67 Ratio (12.00-20.00); Blood Urea Nitrogen 10.5 mg/dL (9.0-27.0); Glucose 86 mg/dL (70-110)
[2024-01-08 10:06] LABS: ALT 20 U/L (10-49); AST 31 U/L (14-35); Albumin 3.6 g/dL (3.8-4.9); Alkaline Phosphatase 64 U/L (41-126); Calcium 8.5 mg/dL (8.7-10.3); Carbon Dioxide 24.7 mmol/L (21.6-31.8); Chloride 101 mmol/L (96-109); Globulin 2.4 g/dL (1.6-3.3); Potassium 4.4 mmol/L (3.5-5.5); Sodium 137 mmol/L (135-145); Total Bilirubin <0.2 mg/dL (0.3-1.2)
[2024-01-08 10:12] LABS: HCT 38.1 % (39.6-50.0); HGB 12.6 g/dL (13.0-17.0); MCH 31.1 pg (27.0-32.0); MCHC 33.1 g/dL (32.0-37.0); MCV 94.1 FL (80.0-97.0); Mean Platelet Volume 10.1 FL (9.5-12.2); NRBC Per 100 WBC 0 X 10*3/uL (0.00-0.01); Platelet Count 278 X 10*3/uL (140-440); RBC 4.05 X 10*6/uL (4.40-5.60); RDW 13.7 % (11.5-14.5)
--- NOTE | 2024-01-08 16:32 | P.PN ---
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 He presented to the emergency department with reports of recurrent seizure activity at home. Upon arrival to our facility, patient underwent evaluation in the emergency department. Vital signs upon arrival show blood pressure 185/99, heart rate 98, respiratory rate 18, temp 99.1 F, and SpO2 of 98% on room air. EKG completed showing normal sinus rhythm at 95 bpm with no noted T wave or ST abnormality showing no signs of acute ischemia upon personal review and interpretation. CT brain completed negative for acute intracranial process. Chest x-ray completed negative for acute cardiopulmonary process. Labs comple adilene and reviewed. CBC showing leukocytosis with WBC count of 10.9. BMP showing hyponatremia with sodium of 134 and hypochloremia with chloride of 94. Blood glucose was 129. Magnesium 2.0. Liver profile unremarkable. Troponin 0.028. 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 CT soft tissue neck with IV contrast showing mild fluid at the hypopharynx consistent with reflux. Salicylates less than 1.0. Acetaminophen less than 10. Urine drug screen negative. Influenza A, influenza B, RSV, and COVID were negative. Patient was admitted under our services with consultation to co urology. Physical exam: Patient is fully evaluated at bedside. also at bedside with patient. Patient had 4 reported witnessed breakthrough seizures this morning. Per patient's and nursing at bedside patient has not been receiving his Brivaracetam since admission as his states that she forgot to bring it in and brought it in this morning after she heard he had another breakthrough seizure. Patient has also received 4 mg of Ativan for seizure activity this morning. Neurologist notified. Patient complains of mild headache otherwise denies any complaints at this time. He reports feeling very tired. Vital signs reviewed and stable. General: Nontoxic, no distress and appears stated age. Derm: Skin warm and dry, normal coloration for ethnicity. Head: normocephalic and symmetric. Scarring from previous craniotomy. Eyes: EOM's intact, no lid lag, and anicteric sclera Mouth: no lip lesions, mucus membranes moist Cardiovascular: regular rate and rhythm with normal S1S2, no murmur, positive posterior tibial pulses bilaterally, and cap refill < 2 seconds. Lungs: Respirations even, regular, and unlabored on room air. Lungs CTA bilaterally, no rhonchi, no rales, no wheezing, and no accessory muscle usage. Abdominal: soft, nontender to palpation, no guarding, no appreciable organomegaly Ext: ROM intact. No gross muscle atrophy, no edema, no contractures Neuro: Speech clear, face symmetrical and CN II-XII grossly intact with no noted focal neuro deficits Psych: Alert and oriented to person, place, time, and situation. Appropriate and pleasant affect. Assessment and Plan of Care: Recurrent breakthrough seizures. (Four witnessed seizures during hosp italization on 01/07/2024) Epilepsy status post nerve stimulator placement March 2022 Previous TBI resulting in memory impairment -Neurology was consulted, plan of care with Dr. Denson. If patient remains seizure-free for 24 hours, may discharge home to follow-up with primary neurologist. -Continue brivaracetam 100 mg twice daily, carbamazepine 100 mg daily and 200 mg nightly, Depakote 1000 mg twice daily, and Lamictal 100 mg twice daily. -Seizure precautions, aspiration precautions, and fall precautions in place. -Patient informed of [place] state law stating no driving until seizure free for 6 months. Patient also instructed to avoid climbing ladders, operating dangerous or heavy machinery or unsupervised swimming until seizure free for 6 months. -Telemetry monitoring -Depakote levels subtherapeutic at 31.9. -Carbamazepine levels within therapeutic range at 6.1. -Lamictal levels therapeutic at 3.0. 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 -Recommending outpatient follow-up/surveillance. Hypertension with hypertensive urgency upon arrival -Increased amlodipine to 5 mg daily and blood pressures improving with morning blood pressure of 144/82. Hyperlipidemia -Patient to continue Zetia 10 mg daily and atorvastatin 80 mg nightly. Previous CVA -Continue Plavix 75 mg daily and atorvastatin 80 mg nightly. Data and imaging reviewed: Vital signs reviewed showing blood pressure 134/82, heart rate 74, respiratory rate 17, temp 98.4 F, and SpO2 of 95% on room air. Morning labs completed and reviewed. CBC unremarkable with the exception of slight leukocytosis with WBC count of 10.60 and normocytic anemia with hemoglobin of 12.6. BMP unremarkable. Blood glucose 86. Magnesium 2.0. CODE STATUS: Full code DVT prophylaxis: Lovenox Anticipated discharge date: Pending clinical course Anticipated discharge place: Home Patient was seen independently by Nurse Pracitioner. This document was prepared using [employer] dictation software. Please allow for errors in general merchandise manager, while rare they do occur. I reviewed the documentation as provided by the LIDYA above, who is the original author of this note. I agree with the documented assessment and plan, with the following changes: none Objective - Vital Signs Vital signs: Vital Signs Temp 98.4 F 01/08/24 07:35 Pulse 74 01/08/24 07:35 Resp 17 01/08/24 07:35 BP 134/82 01/08/24 07:35 Pulse Ox 95 01/08/24 07:35 FiO2 Intake & Output 01/07/24 01/08/24 01/08/24 18:59 06:59 18:59 Intake Total 1620 Output Total 1000 Balance 1620 -1000 Intake: Intake, IV Titration 900 Amount Sodium Chloride 0.9% 1, 900 000 ml @ 75 mls/hr IV . [id number] [facility] Rx#:[id number] Oral 720 Output: Urine 1000 Other: # Voids 2 - Labs CBC & Chem 7: 01/08/24 02:43 01/08/24 02:43
[2024-01-09 02:44] VITALS: PULSE 82
[2024-01-09 07:56] VITALS: BP 135/88; RESP 18; TEMP 97.7
--- NOTE | 2024-01-09 08:23 | P.PN ---
Subjective Progress Note Date: 01/07/24 Patient was seen for a follow-up. Patient apparently had cluster of seizures again this morning at 7:07 AM, 7:25 AM, 7:30 AM and 7:32 AM. Patient was given 2 mg Ativan and the seizure stopped. Patient now asleep. It appears that patient has not been receiving his Briviact, as it is not hospital formulary and patient's has not brought Briviact to the nursing station yet. Objective - Vital Signs Vital signs: Vital Signs Temp 98.1 F 01/07/24 13:16 Pulse 83 01/07/24 13:16 Resp 16 01/07/24 13:16 BP 122/76 01/07/24 13:16 Pulse Ox 95 01/07/24 13:16 FiO2 Intake & Output 01/06/24 01/07/24 01/07/24 18:59 06:59 18:59 Intake Total 540 Output Total 250 1974 Balance -250 -1435 Intake: Oral 540 Output: Urine 250 1974 - Exam Patient is sleeping, likely from postictal effect as well as from the effect of Ativan 2 mg IV. - Labs CBC & Chem 7: 01/08/24 02:43 01/08/24 02:43 Assessment and Plan Assessment: * Medically intractable epilepsy, came with breakthrough recurrent seizures. Exact cause of breakthrough seizure unclear. He is compliant with the medications, levels are therapeutic. * Presence of VNS and RNS. Patient is on 4 antiepileptic medication with therapeutic doses and levels. Patient is fully compliant with medications. * History of right Hammonds's palsy * Diabetes * Hypertension * Obesity * Sleep apnea Plan: * Patient's breakthrough seizure is of unclear cause. He is compliant with medications. * I spoke to patient's neurologist Dr. grigsby on the phone. He mentions that he has prescribed Nayzilam (Versed nasal spray) for cluster of seizures, but his always fails to administer for cluster of seizures to prevent recurrent ER visits. We will check with patient's , if she administered the nasal spray with this cluster of seizures. However she is working and cannot take phone calls at this time. Dr. Grigsby recommended to increase Briviact to 100 mg in the morning and 150 mg at night for 14 days, and then increase to Briviact 150 mg twice daily. * It appears patient has not been receiving his Briviact in the hospital, that resulted in breakthrough seizures earlier this morning. Patient to be resumed on Briviact with above recommendations. * If remains seizure-free for 24 hours, will be clear for discharge. * Continue seizure medications including Depakote 1000 mg twice a day, Lamictal 100 mg twice a day, Briviact 100 mg twice daily and Carbatrol 200 mg twice a day (at 2 PM and 8 PM) and 100 mg at 8 AM. * Depakote level is subtherapeutic 31.9, Tegretol 6.1 (4-12). Lamictal level 3.8 (2-15). Patient is compliant with medications. * Continue Plavix 75 mg, Zetia 10 mg and Lipitor 80 mg. * Recommend patient follow up with his neurologist outpatient within 1-2 weeks. * Patient was informed of [place] state law of no driving unless seizure free for 6 months, climbing ladders, operating dangerous machinery or unsupervised swimming.
--- NOTE | 2024-01-09 08:27 | P.PN ---
Subjective Progress Note Date: 01/08/24 01/08/2024: Patient was seen for a follow-up. Patient's was also present by bedside. She mentions that she could not give nasal Versed to the patient, as she was at work and patient had multiple seizures. He has a life alert, which he activated, that initiated 911. 01/07/2024: Patient apparently had cluster of seizures again this morning at 7:07 AM, 7:25 AM, 7:30 AM and 7:32 AM. Patient was given 2 mg Ativan and the seizure stopped. Patient now asleep. It appears that patient has not been receiving his Briviact, as it is not hospital formulary and patient's has not brought Briviact to the nursing station yet. Objective - Vital Signs Vital signs: Vital Signs Temp 98.4 F 01/08/24 14:00 Pulse 83 01/08/24 14:00 Resp 16 01/08/24 14:00 BP 136/82 01/08/24 14:00 Pulse Ox 98 01/08/24 14:00 FiO2 Intake & Output 01/07/24 01/08/24 01/08/24 18:59 06:59 18:59 Intake Total 1620 660 Output Total 1000 1150 Balance 1620 -1000 -490 Intake: Intake, IV Titration 900 Amount Sodium Chloride 0.9% 1, 900 000 ml @ 75 mls/hr IV . [id number] [facility] Rx#:[id number] Oral 720 660 Output: Urine 1000 1150 Other: # Voids 2 - Exam Patient is fully alert and awake, laying in the bed, in no distress. Examination is nonfocal. - Labs CBC & Chem 7: 01/08/24 02:43 01/08/24 02:43 Labs: Abnormal Lab Results - Last 24 Hours (Table) 01/08/24 01/08/24 Range/Units 02:43 02:43 WBC 10.60 H (4.50-10.00) X 10*3/uL RBC 4.05 L (4.40-5.60) X 10*6/uL Hgb 12.6 L (13.0-17.0) g/dL Hct 38.1 L (39.6-50.0) % BUN/Creatinine Ratio 11.67 L (12.00-20.00) Ratio Calcium 8.5 L (8.7-10.3) mg/dL Total Bilirubin <0.2 L (0.3-1.2) mg/dL Total Protein 6.0 L (6.2-8.2) g/dL Albumin 3.6 L (3.8-4.9) g/dL Albumin/Globulin Ratio 1.50 L (1.60-3.17) Ratio Assessment and Plan Assessment: * Medically intractable epilepsy, came with breakthrough recurrent seizures. Exact cause of breakthrough seizure unclear. He is compliant with the medications, levels are therapeutic. * Breakthrough seizures in the hospital, likely due to not receiving his Briviact (nonformulary). * Presence of VNS and RNS. Patient is on 4 antiepileptic medication with therapeutic doses and levels. Patient is fully compliant with medications. * History of right Hammonds's palsy * Diabetes * Hypertension * Obesity * Sleep apnea Plan: * Patient's breakthrough seizure is of unclear cause. He is compliant with medications. * I spoke to patient's neurologist Dr. grigsby on the phone. He mentions that he has prescribed Nayzilam (Versed nasal spray) for cluster of seizures, but his always fails to administer for cluster of seizures to prevent recurrent ER visits. She mentions that with these cluster of seizures, she was at work and patient was home alone when he had seizures, and he activated life alert when he started having recurrent seizures. * Dr. Grigsby recommended to increase Briviact to 100 mg in the morning and 150 mg at night for 14 days, and then increase to Briviact 150 mg twice daily. * Patient has been resumed on Briviact with above recommendations. * Patient is clear for discharge from neurology standpoint. Discussed with primary team. * Continue seizure medications including Depakote 1000 mg twice a day, Lamictal 100 mg twice a day, Briviact 100 mg twice daily and Carbatrol 200 mg twice a day (at 2 PM and 8 PM) and 100 mg at 8 AM. * Depakote level is subtherapeutic 31.9, Tegretol 6.1 (4-12). Lamictal level 3.8 (2-15). Patient is compliant with medications. * Continue Plavix 75 mg, Zetia 10 mg and Lipitor 80 mg. * Recommend patient follow up with his neurologist outpatient within 1-2 weeks. * Patient was informed of [place] state law of no driving unless seizure free for 6 months, climbing ladders, operating dangerous machinery or unsupervised swimming.
--- NOTE | 2024-01-09 18:47 | P.DS ---
Providers Date of admission: 01/04/24 22:36 Expected date of discharge: 01/09/24 Attending physician: Corky Vee MD Consults: 01/04/24 22:29 Consult Physician Routine Consulting Provider: Valdez Denson Consult Reason/Comments: sz Do you want consulting provider notified?: Yes Primary care physician: [facility] Course: Discharge Diagnosis: Recurrent breakthrough seizures. (Four witnessed seizures during hospitalization on 01/07/2024). -Depakote levels subtherapeutic at 31.9. Carbamazepine levels within therapeutic range at 6.1. Lamictal levels therapeutic at 3.0. Patient has now been 48 hours seizure-free. He was evaluated by neurologist. Patient to continue brivaracetam 100 mg twice daily, carbamazepine 100 mg daily and 200 mg nightly, Depakote 1000 mg twice daily, and Lamictal 100 mg twice daily. Patient instructed he will need to follow-up outpatient with his PCP in 1 to 2 days and with his personal neurologist Dr. Grigsby 1 week. Epilepsy status post nerve stimulator placement March 2022. 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 Incidental finding, left adrenal mass. 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 Recommending outpatient follow-up/surveillance. Hypertension with hypertensive urgency upon arrival. Continue amlodipine to 2.5 mg daily. Hyperlipidemia. Patient to continue Zetia 10 mg daily and atorvastatin 80 mg nightly. Previous CVA Continue Plavix 75 mg daily and atorvastatin 80 mg nightly.. Hospital course: Patient is a 58-year-old male with a past medical history of hypertension, hyperlipidemia, previous CVA on Plavix, previous TBI resulting in epilepsy and memory impairment with recurrent breakthrough seizures on Brivaracetam, carbamazepine, Depakote, and Lamictal and is status post nerve stimulator. He presented to the emergency department with reports of recurrent seizure activity at home. Upon arrival to our facility, patient underwent evaluation in the emergency department. Vital signs upon arrival show blood pressure 185/99, heart rate 98, respiratory rate 18, temp 99.1 F, and SpO2 of 98% on room air. EKG completed showing normal sinus rhythm at 95 bpm with no noted T wave or ST abnormality showing no signs of acute ischemia upon personal review and interpretation. CT brain completed negative for acute intracranial process. Chest x-ray completed negative for acute cardiopulmonary process. Labs completed and reviewed. CBC showing leukocytosis with WBC count of 10.9. BMP showing hyponatremia with sodium of 134 and hypochloremia with chloride of 94. Blood glucose was 129. Magnesium 2.0. Liver profile unremarkable. Troponin 0.028. 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 CT soft tissue neck with IV contrast showing mild fluid at the hypopharynx consistent with reflux. Salicylates less than 1.0. Acetaminophen less than 10. Urine drug screen negative. Influenza A, influenza B, RSV, and COVID were negative. Patient was admitted under our services with consultation to neurology. Physical exam: Vital signs reviewed and stable. General: Nontoxic, no distress and appears stated age. Derm: Skin warm and dry, normal coloration for ethnicity. Head: normocephalic and symmetric. Scarring from previous craniotomy. Eyes: EOM's intact, no lid lag, and anicteric sclera Mouth: no lip lesions, mucus membranes moist Cardiovascular: regular rate and rhythm with normal S1S2, no murmur, positive posterior tibial pulses bilaterally, and cap refill < 2 seconds. Lungs: Respirations even, regular, and unlabored on room air. Lungs CTA bilaterally, no rhonchi, no rales, no wheezing, and no accessory muscle usage. Abdominal: soft, nontender to palpation, no guarding, no appreciable organomegaly Ext: ROM intact. No gross muscle atrophy, no edema, no contractures Neuro: Speech clear, face symmetrical and CN II-XII grossly intact with no noted focal neuro deficits Psych: Alert and oriented to person, place, time, and situation. Appropriate and pleasant affect. A total of 38 minutes of time were spent preparing this complex discharge summary. Pt was discharged on 01/09/2024 at 9:16 AM. Patient was seen independently by Nurse Practitioner. This document was prepared using [employer] dictation software. Please allow for errors in handy worker while rare they do occur. I reviewed the documentation as provided by the LIDYA above, who is the original author of this note. I agree with the documented assessment and plan, with the following changes: none Patient Condition at Discharge: Stable Plan - Discharge Summary New Discharge Prescriptions: Continue Clopidogrel [Plavix] 75 mg PO DAILY@0800 Divalproex ER [Depakote ER] 1,000 mg PO BID@0800,1999 Niacin (Inositol Niacinate) [Niacin 500 mg Capsule] 500 mg PO DAILY@1400 Multivitamins, Thera [Multivitamin (formulary)] 1 tab PO DAILY@1400 amLODIPine [Norvasc] 2.5 mg PO HS@1999 Atorvastatin Calcium [Lipitor] 80 mg PO HS@1999 Folic Acid 0.8 mg PO DAILY@1400 Thiamine [Vitamin B-1] 100 mg PO DAILY@1400 Cholecalciferol [Vitamin D3 (125 Mcg = 5000 Iu)] 125 mcg PO DAILY@1400 lamoTRIgine [LaMICtal] 100 mg PO BID Brivaracetam [Briviact] 100 mg PO BID@0800,1999 Ezetimibe [Zetia] 10 mg PO DAILY@0800 carBAMazepine 200 mg PO BID@1200,1999 carBAMazepine 100 mg PO DAILY@0800 rOPINIRole HCL [Requip] 1 mg PO BID@0800,1999 Pantoprazole [Protonix] 40 mg PO AC-BRKFST #30 tab Amoxicillin 875 mg PO PC-BID Bimatoprost [Lumigan 0.01% Ophth Soln] 1 drop BOTH EYES HS predniSONE [Deltasone] 20 mg PO AC-BRKFST Discharge Medication List Clopidogrel [Plavix] 75 mg PO DAILY@0800 03/16/17 [History] Divalproex ER [Depakote ER] 1,000 mg PO BID@0800,199905/26/18 [History] Multivitamins, Thera [Multivitamin (formulary)] 1 tab PO DAILY@139905/26/18 [History] Niacin (Inositol Niacinate) [Niacin 500 mg Capsule] 500 mg PO DAILY@139905/26/18 [History] Atorvastatin Calcium [Lipitor] 80 mg PO HS@199910/30/19 [History] Folic Acid 0.8 mg PO DAILY@139910/30/19 [History] amLODIPine [Norvasc] 2.5 mg PO HS@199910/30/19 [History] Cholecalciferol [Vitamin D3 (125 Mcg = 5000 Iu)] 125 mcg PO DAILY@1400 07/12/21 [History] Ezetimibe [Zetia] 10 mg PO DAILY@0800 07/12/21 [History] Thiamine [Vitamin B-1] 100 mg PO DAILY@1400 07/12/21 [History] carBAMazepine 100 mg PO DAILY@0800 07/12/21 [History] carBAMazepine 200 mg PO BID@1199,199907/12/21 [History] rOPINIRole HCL [Requip] 1 mg PO BID@08,199909/23/21 [History] lamoTRIgine [LaMICtal] 100 mg PO BID 01/31/23 [History] Brivaracetam [Briviact] 100 mg PO BID@08,199910/11/23 [History] Pantoprazole [Protonix] 40 mg PO AC-BRKFST #30 tab 10/12/23 [Rx] Amoxicillin 875 mg PO PC-BID 01/05/24 [History] Bimatoprost [Lumigan 0.01% Ophth Soln] 1 drop BOTH EYES HS 01/05/24 [History] predniSONE [Deltasone] 20 mg PO AC-BRKFST 01/05/24 [History] Follow up Appointment(s)/Referral(s): Aman Smyth MD [Primary Care Provider] - 1-2 days Jerad Grigsby MD [STAFF PHYSICIAN] - 1 Week Patient Instructions/Handouts: Seizure/Epilepsy Discharge Instructions & Follow-Up, Epilepsy (DC), Recurrent Seizures in Adults (DC) Activity/Diet/Wound Care/Special Instructions: patient's home med Briviact is in the inpatient pharmacy Activity: As tolerated. Take breaks as needed. Diet: Heart healthy and carb consistent diet. Avoid salts, or foods with hidden salts such as canned or boxed foods and frozen dinners. Extra salt makes your heart work harder and traps the fluid in your body for longer. Special Instructions: Take all of your medications as directed and remember to keep all of your doctor's appointments and follow-up as needed. Maintain home seizure precautions, aspiration precautions, and fall precautions. Incidental finding, left adrenal mass. 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 Recommending outpatient follow-up/surveillance. [place] state law states no driving until seizure free for 6 months. It is also important to avoid climbing ladders, operating dangerous or heavy machinery or unsupervised swimming until seizure free for 6 months. Thank you for allowing us to participate in your care, it was truly a pleasure having you for our patient!!! . Discharge Disposition: HOME SELF-CARE
== END 2024-01-09 11:32 | disposition home or self-care (01) | DRG 101 ==
LOC: EC 20:31 → 5NMEDONC 22:36
PROVIDERS: ADMIT Internal Medicine; ATTEND Internal Medicine
DX: G40.A19 Absence epileptic syndrome, intractable, without status epilepticus (principal); E87.20 Acidosis, unspecified; I69.854 Hemiplegia and hemiparesis following other cerebrovascular disease affecting left non-dominant side; E87.1 Hypo-osmolality and hyponatremia; I16.0 Hypertensive urgency; E11.9 Type 2 diabetes mellitus without complications; I10 Essential (primary) hypertension; E66.9 Obesity, unspecified; E27.9 Disorder of adrenal gland, unspecified; E78.5 Hyperlipidemia, unspecified; E87.8 Other disorders of electrolyte and fluid balance, not elsewhere classified; G47.30 Sleep apnea, unspecified; K21.9 Gastro-esophageal reflux disease without esophagitis; I25.10 Atherosclerotic heart disease of native coronary artery without angina pectoris; R41.3 Other amnesia; Z79.02 Long term (current) use of antithrombotics/antiplatelets; Z79.899 Other long term (current) drug therapy; I25.2 Old myocardial infarction; Z87.820 Personal history of traumatic brain injury; Z96.82 Presence of neurostimulator
CPT/HCPCS: 36415; 70450; 70491; 71045; 71275; 80053; 80143; 80156; 80164; 80175; 80179; 80306; 83735; 84100; 84484; 85025; 85027; 87636; 93005; 94760; 96361; 96365; 96366; 96372; 96375; 99285

== ENCOUNTER → 2024-01-13 | Outpatient (CLI) | payer OTHER, MEDICARE ==
--- NOTE | 2024-01-13 16:01 | CT ---
EXAMINATION TYPE: CT chest w con CT DLP: 502.70 mGycm, Automated exposure control for dose reduction was used. DATE OF EXAM: 01/13/2024 8:28 AM COMPARISON: CTA chest 01/04/2024, CTA thoracic abdominal pelvic aorta 08/15/2018. CLINICAL INDICATION:Male, 58 years old with history of R93.89 abnormal findings; PHH, Abnormal findin gs on lung kaur TECHNIQUE: Multiple axial images were obtained through the chest following the administration of 100 cc of Isovue 300. . Coronal and sagittal reformats reviewed. FINDINGS: LUNGS/ PLEURA: No pleural effusion, pneumothorax, or focal consolidation. Incidentally azygous fissur e. No suspicious pulmonary nodules or masses. AIRWAY: Patent and unremarkable.. HEART: The heart is mildly increased in size.. No pericardial effusion. MEDIASTINUM: No gross evidence of adenopathy. VASCULATURE: Bovine aortic arch. The thoracic aorta measures up to 3.5 cm in diameter. The aortic ro ot measures up to 3.1 cm. The descending thoracic aorta measures up to 2.5 cm. No evidence for dissec tion. MUSCULOSKELETAL: No acute osseous abnormalities. Mild multilevel anterior hypertrophic changes. SOFT TISSUES/LYMPH NODES: Left anterior chest wall power pack stimulator. LOWER NECK: No significant findings. UPPER ABDOMEN: Hypodense left adrenal gland mass measuring 4.1 cm, previously measured 3.8 cm in 2019 exam. Demonstrates some peripheral calcification superiorly again. Demonstrates a Hounsfield unit of 36 on contrast exam. IMPRESSION: 1. No acute thoracic process. 2. Marginal increase in size of left adrenal gland mass with calcification measuring 4.1 cm, previous ly measured 3.8 cm on 2019 exam. Probable adenoma. Consider further evaluation with CT abdomen adrena l mass protocol versus resection due to size and malignant potential. [facility], , 01/13/2024 3:59 PM
== END | disposition home or self-care (01) ==
LOC: RADCTMAIN 07:59
PROVIDERS: ATTEND Family Medicine
DX: R93.89 Abnormal findings on diagnostic imaging of other specified body structures
CPT/HCPCS: 71260

== ENCOUNTER → 2024-02-03 | Outpatient (CLI) | payer OTHER, MEDICARE ==
--- NOTE | 2024-02-03 11:21 | CT ---
EXAMINATION TYPE: CT abdomen wo/w con CT DLP: 1999.2 mGycm, Automated exposure control for dose reduction was used. DATE OF EXAM: 02/03/2024 10:00 AM COMPARISON: CT chest 01/13/2024, CTA thoracoabdominal pelvis aorta 08/15/2018, CT abdomen 06/02/2015 CLINICAL INDICATION:Male, 58 years old with history of R19.09 INTRA ABD SWELLING; adrenal mass TECHNIQUE: Standard CT of the abdomen before and after the uneventful administration of 100 mL of I sovue-370 intravenously. Enteric contrast was administered. Coronal and sagittal reformats were perfo rmed. FINDINGS: LOWER CHEST: Linear atelectasis within the right lower lobe. Mildly prominent heart. Aortic valvular calcifications. Minimal bilateral gynecomastia. ABDOMEN LIVER: Unremarkable GALLBLADDER AND BILE DUCTS: Unremarkable. PANCREAS: Unremarkable. SPLEEN: Unremarkable. ADRENAL GLANDS: Right adrenal gland is unremarkable. Redemonstration of left adrenal gland mass measu ring 4.1 cm. This demonstrates peripheral dystrophic calcification along its superior medial aspect. There are some regions of fat attenuation identified within the lesion and some other more solid appe aring regions. Demonstrates similar morphology on prior exam however measured 3.8 cm in 2018. Previou sly measured 3.2 cm in 2015. There is some questionable tiny macroscopic fat. Demonstrates a smooth o void shape. No definitive enhancement identified. KIDNEYS AND URETERS: No evidence of hydronephrosis or renal calculus. The kidneys enhance saturated. Contrast is demonstrated within both collecting systems. STOMACH AND BOWEL: Stomach and duodenum are unremarkable. No focal bowel wall thickening or surroundi ng inflammatory changes. Enteric contrast reaches the mid to distal small bowel. No evidence of bowel obstruction. PERITONEUM: No evidence of pneumoperitoneum or free fluid. VASCULATURE: No evidence of aortic aneurysm. MUSCULOSKELETAL: No acute osseous abnormalities. Mild disc degeneration changes are present throughou t the thoracic spine. LYMPH NODES: No evidence for lymphadenopathy. SOFT TISSUE/ABDOMINAL WALL: Unremarkable IMPRESSION: Redemonstration of a 4.1 cm left adrenal gland mass containing calcification with some regions of low density and possible trace macroscopic fat. This has slowly increased in size from prior exams. This may represent a myelolipoma versus atypical adenoma with adrenal cortical carcinoma not entirely exc luded. No aggressive features identified besides size. No adenopathy identified within the abdomen. R ecommend further evaluation with MR abdomen with IV contrast (adrenal mass protocol). [facility], , 02/03/2024 11:19 AM
== END | disposition home or self-care (01) ==
LOC: RADCTMAIN 08:41
PROVIDERS: ATTEND Family Medicine
CPT/HCPCS: 74170

== ENCOUNTER 2024-02-28 11:32 | Observation (INO) | payer OTHER, MEDICARE ==
[2024-02-28] MEDS: SODIUM CHLORIDE 0.9% 1,000 ML IV STA (12:04)
[2024-02-28] MEDS: SODIUM CHLORIDE 0.9% 500 ML 500 ML IV STA (12:05)
[2024-02-28] MEDS: ONDANSETRON 4 MG/2 ML VIAL IVP STA (12:05)
[2024-02-28 12:21] LABS: Basophils % (A) 0 %; Eosinophils # (A) 0.1 k/uL (0-0.7); Eosinophils % (A) 1 %; HCT 45.5 % (39.0-53.0); HGB 15.4 gm/dL (13.0-17.5); Lymphocytes # (A) 0.2 k/uL (1.0-4.8); Lymphocytes % (A) 2 %; MCH 31.3 pg (25.0-35.0); MCHC 33.8 g/dL (31.0-37.0); MCV 92.6 fL (80.0-100.0); Mean Platelet Volume 7.8; Monocytes # (A) 0.3 k/uL (0-1.0); Monocytes % (A) 3 %; Neutrophils # (A) 9.4 k/uL (1.3-7.7); Neutrophils % (A) 93 %; Platelet Count 205 k/uL (150-450); RBC 4.92 m/uL (4.30-5.90); WBC 10.1 k/uL (3.8-10.6)
[2024-02-28 12:22] LABS: ALT 22 U/L (4-49); AST 27 U/L (17-59); African American GFR (CKD) 88 (>60 ml/min/1.73 sqM); Alkaline Phosphatase 71 U/L (38-126); Anion Gap 6 mmol/L; Blood Urea Nitrogen 16 mg/dL (9-20); Calcium 8.3 mg/dL (8.4-10.2); Carbon Dioxide 23 mmol/L (22-30); Chloride 102 mmol/L (98-107); Glucose 136 mg/dL (74-99); Magnesium 1.6 mg/dL (1.6-2.3); Non-African American GFR(CKD) 76 (>60 ml/min/1.73 sqM); Sodium 131 mmol/L (137-145); Total Bilirubin 0.6 mg/dL (0.2-1.3); Total Protein 6.7 g/dL (6.3-8.2)
[2024-02-28 12:23] LABS: Partial Thromboplastin Time 22.7 sec (22.0-30.0); Prothrombin Time 10.6 sec (10.0-12.5)
[2024-02-28 12:33] LABS: Potassium 6.1 mmol/L (3.5-5.1)
--- NOTE | 2024-02-28 13:02 | ED ---
General Adult HPI - General Chief complaint: Syncope Stated complaint: Weakness Time Seen by Provider: 02/28/24 11:39 Source: patient, EMS, RN notes reviewed Limitations: no limitations - History of Present Illness Initial comments: 38-year-old male presents emergency department via EMS emergent care after syncopal episode. Patient states he has been vomiting with nausea, diarrhea and feels dehydrated. He states he feels very lightheaded when he stands up but is better at rest. He denies any chest pain or shortness of breath he states that he went to the [place] last night he believes that he may have picked something up or ate something that was bad. Patient denies any fevers or chills denies any muscle cramping, no focal weakness. Patient did not have any head injury. - Related Data Home Medications Medication Instructions Recorded Confirmed Clopidogrel [Plavix] 75 mg PO DAILY@0800 03/16/17 01/05/24 Divalproex ER [Depakote ER] 1,000 mg PO BID@08,199905/26/18 01/05/24 Multivitamins, Thera [Multivitamin 1 tab PO DAILY@139905/26/18 01/05/24 (formulary)] Niacin (Inositol Niacinate) 500 mg PO DAILY@139905/26/18 01/05/24 [Niacin 500 mg Capsule] Atorvastatin Calcium [Lipitor] 80 mg PO HS@199910/30/19 01/05/24 Folic Acid 0.8 mg PO DAILY@139910/30/19 01/05/24 amLODIPine [Norvasc] 2.5 mg PO HS@199910/30/19 01/05/24 Cholecalciferol [Vitamin D3 (125 125 mcg PO DAILY@139907/12/21 01/05/24 Mcg = 5000 Iu)] Ezetimibe [Zetia] 10 mg PO DAILY@79907/12/21 01/05/24 Thiamine [Vitamin B-1] 100 mg PO DAILY@139907/12/21 01/05/24 carBAMazepine 100 mg PO DAILY@79907/12/21 01/05/24 carBAMazepine 200 mg PO BID@1200,199907/12/21 01/05/24 rOPINIRole HCL [Requip] 1 mg PO BID@08,199909/23/21 01/05/24 lamoTRIgine [LaMICtal] 100 mg PO BID 01/31/23 01/05/24 Brivaracetam [Briviact] 100 mg PO BID@0800,199910/11/23 01/05/24 Amoxicillin 875 mg PO PC-BID 01/05/24 01/05/24 Bimatoprost [Lumigan 0.01% Ophth 1 drop BOTH EYES HS 01/05/24 01/05/24 Soln] predniSONE [Deltasone] 20 mg PO AC-BRKFST 01/05/24 01/05/24 Previous Rx's Medication Instructions Recorded Pantoprazole [Protonix] 40 mg PO AC-BRKFST #30 tab 10/12/23 Allergies Allergy/AdvReac Type Severity Reaction Status Date / Time No Known Allergies Allergy Verified 02/28/24 11:38 Review of Systems ROS Statement: Those systems with pertinent positive or pertinent negative responses have been documented in the HPI. ROS Other: All systems not noted in ROS Statement are negative. Past Medical History Past Medical History: CVA/TIA, Diabetes Mellitus, Hyperlipidemia, Hypertension, Memory Impairment, Myocardial Infarction ([place]), Seizure Disorder, Sleep Apnea/CPAP/BIPAP Additional Past Medical History / Comment(s): TIA-some slight residual left sided weakness-resolved, "borderline diabetes"-diet control, no CPAP, has vagus nerve stimulator, hx migraines, epilepsy last seizure 1 month ago, seizures x2 (04/23/23) Last Myocardial Infarction Date:: 2015 History of Any Multi-Drug Resistant Organisms: None Reported Past Surgical History: Adenoidectomy, Ear Surgery, Heart Catheterization, Tonsillectomy Additional Past Surgical History / Comment(s): TUBES IN EARS, VAGUS NERVE STIMULATOR IMPLANT, responsive neuro stimulator placed 2021 Past Anesthesia/Blood Transfusion Reactions: Previous Problems w/ Anesthesia Additional Past Anesthesia/Blood Transfusion Reaction / Comment(s): STATES A LONG TIME TO WAKE UP AFTER ANESTHESIA. Past Psychological History: No Psychological Hx Reported Smoking Status: Never smoker Past Alcohol Use History: None Reported Past Drug Use History: None Reported - Past Family History Brother(s) Family Medical History: Cancer Additional Family Medical History / Comment(s): prostate CA with mets General Exam Limitations: no limitations General appearance: alert, in no apparent distress Head exam: Present: atraumatic, normocephalic, normal inspection Eye exam: Present: normal appearance, PERRL, EOMI. Absent: scleral icterus, conjunctival injection, periorbital swelling ENT exam: Present: normal exam, normal oropharynx, mucous membranes moist Neck exam: Present: normal inspection, full ROM. Absent: tenderness, meningismus, lymphadenopathy Respiratory exam: Present: normal lung sounds bilaterally. Absent: respiratory distress, wheezes, rales, rhonchi, stridor Cardiovascular Exam: Present: regular rate, normal rhythm, normal heart sounds. Absent: systolic murmur, diastolic murmur, rubs, gallop, clicks GI/Abdominal exam: Present: soft, normal bowel sounds. Absent: distended, tenderness, guarding, rebound, rigid Course Vital Signs 02/28/24 11:35 Temperature 98.2 F Pulse Rate 90 Respiratory 18 Rate Blood Pressure 128/79 O2 Sat by Pulse 97 Oximetry EKG Findings - EKG Comments: EKG Findings:: EKG performed 11: 56 sinus rhythm with rate of 86 ME 161 QRS 93 QT/QTc 336/379 - EKG Results: EKG: interpreted by YUDI Medical Decision Making - Medical Decision Making Was pt. sent in by a medical professional or institution (, PA, LDR NURSE, urgent care, hospital, or senior living...) When possible be specific @ -Urgent care Did you speak to anyone other than the patient for history (EMS, parent, family, police, friend...)? What history was obtained from this source @ -No Did you review nursing and triage notes (agree or disagree)? Why? @ -I reviewed and agree with nursing and triage notes Were old charts reviewed (outside hosp., previous admission, EMS record, old EKG, old radiological studies, urgent care reports/EKG's, senior living records)? Report findings @ -No old charts were reviewed Differential Diagnosis (chest pain, altered mental status, abdominal pain women, abdominal pain men, vaginal bleeding, weakness, fever, dyspnea, syncope, headache, dizziness, GI bleed, back pain, seizure, CVA, palpatations, mental health, musculoskeletal)? @ -Differential Syncope: Valvular disease, hypertrophic cardiomyopathy, pulmonary embolism, tamponade, tachycardia, bradycardia, VA, hypovolemia, hemorrhage, dissection, anemia, intracranial hemorrhage, seizure, hypoglycemia, carbon monoxide poisoning, this is not meant to be an all-inclusive list. EKG interpreted by me (3pts min.). @ -As above X-rays interpreted by me (1pt min.). @ -None done CT interpreted by me (1pt min.). @ -None done U/S interpreted by me (1pt. min.). @ -None done What testing was considered but not performed or refused? (CT, X-rays, U/S, labs)? Why? @ -None What meds were considered but not given or refused? Why? @ -None Did you discuss the management of the patient with other professionals (professionals i.e. , PA, LDR NURSE, lab, RT, psych nurse, social work nurse, business lawyer, teacher, science and operations officer, outsole caser)? Give summary @ -Dr. Long for admission Was smoking cessation discussed for >3mins.? @ -No Was critical care preformed (if so, how long)? @ -No Were there social determinants of health that impacted care today? How? (Homelessness, low income, unemployed, alcoholism, drug addiction, transportation, low edu. Level, literacy, decrease access to med. care, skilled nursing, rehab)? @ -No Was there de-escalation of care discussed even if they declined (Discuss DNR or withdrawal of care, Hospice)? DNR status @ -No What co-morbidities impacted this encounter? (DM, HTN, Smoking, COPD, CAD, C ancer, CVA, ARF, Chemo, Hep., AIDS, mental health diagnosis, sleep apnea, morbid obesity)? @ -Epilepsy Was patient admitted / discharged? Hospital course, mention meds given and route, prescriptions, significant lab abnormalities, going to OR and other pertinent info. @ -Admitted patient presented for syncopal episode. This more likely related to vasovagal, dehydration syncope but patient is found to have significantly elevated potassium 6.1. He is on no supplements or has no evidence of acute renal failure patient was ordered dextrose, insulin, Lokelma for his hyperkalemia. Patient continued to have hydration, close observation and cardiac monitoring Undiagnosed new problem with uncertain prognosis? @ -No Drug Therapy requiring intensive monitoring for toxicity (Heparin, Nitro, Insulin, Cardizem)? @ -No Were any procedures done? @ -No Diagnosis/symptom? @ -Syncope, hyperkalemia Acute, or Chronic, or Acute on Chronic? @ -Acute Uncomplicated (without systemic symptoms) or Complicated (systemic symptoms)? @ -Complicated Side effects of treatment? @ -No Exacerbation, Progression, or Severe Exacerbation? @ -No Poses a threat to life or bodily function? How? (Chest pain, USA, VA, pneumonia, PE, COPD, DKA, ARF, appy, cholecystitis, CVA, Diverticulitis, Homicidal, Suicidal, threat to staff... and all critical care pts) @ -Yes hyperkalemia causing dysrhythmia - Lab Data Result diagrams: 02/28/24 12:02 02/28/24 12:42 Lab Results 02/28/24 02/28/24 02/28/24 Range/Units 12:02 12:02 12:02 WBC 10.1 (3.8-10.6) k/uL RBC 4.92 (4.30-5.90) m/uL Hgb 15.4 (13.0-17.5) gm/dL Hct 45.5 (39.0-53.0) % MCV 92.6 (80.0-100.0) fL MCH 31.3 (25.0-35.0) pg MCHC 33.8 (31.0-37.0) g/dL RDW 14.0 (11.5-15.5) % Plt Count 205 (150-450) k/uL MPV 7.8 Neutrophils % 93 % Lymphocytes % 2 % Monocytes % 3 % Eosinophils % 1 % Basophils % 0 % Neutrophils # 9.4 H (1.3-7.7) k/uL Lymphocytes # 0.2 L (1.0-4.8) k/uL Monocytes # 0.3 (0-1.0) k/uL Eosinophils # 0.1 (0-0.7) k/uL Basophils # 0.0 (0-0.2) k/uL PT 10.6 (10.0-12.5) sec INR 1.0 (<1.2) APTT 22.7 (22.0-30.0) sec Sodium 131 L (137-145) mmol/L Potassium 6.1 H* (3.5-5.1) mmol/L Chloride 102 (98-107) mmol/L Carbon Dioxide 23 (22-30) mmol/L Anion Gap 6 mmol/L BUN 16 (9-20) mg/dL Creatinine 1.08 (0.66-1.25) mg/dL Est GFR (CKD-EPI)AfAm 88 (>60 ml/min/1.73 sqM) Est GFR (CKD-EPI)NonAf 76 (>60 ml/min/1.73 sqM) Glucose 136 H (74-99) mg/dL Calcium 8.3 L (8.4-10.2) mg/dL Magnesium 1.6 (1.6-2.3) mg/dL Total Bilirubin 0.6 (0.2-1.3) mg/dL AST 27 (17-59) U/L ALT 22 (4-49) U/L Alkaline Phosphatase 71 (38-126) U/L Troponin I (0.000-0.034) ng/mL Total Protein 6.7 (6.3-8.2) g/dL Albumin 4.0 (3.5-5.0) g/dL 02/28/24 02/28/24 Range/Units 12:02 12:42 WBC (3.8-10.6) k/uL RBC (4.30-5.90) m/uL Hgb (13.0-17.5) gm/dL Hct (39.0-53.0) % MCV (80.0-100.0) fL MCH (25.0-35.0) pg MCHC (31.0-37.0) g/dL RDW (11.5-15.5) % Plt Count (150-450) k/uL MPV Neutrophils % % Lymphocytes % % Monocytes % % Eosinophils % % Basophils % % Neutrophils # (1.3-7.7) k/uL Lymphocytes # (1.0-4.8) k/uL Monocytes # (0-1.0) k/uL Eosinophils # (0-0.7) k/uL Basophils # (0-0.2) k/uL PT (10.0-12.5) sec INR (<1.2) APTT (22.0-30.0) sec Sodium (137-145) mmol/L Potassium 6.0 H (3.5-5.1) mmol/L Chloride (98-107) mmol/L Carbon Dioxide (22-30) mmol/L Anion Gap mmol/L BUN (9-20) mg/dL Creatinine (0.66-1.25) mg/dL Est GFR (CKD-EPI)AfAm (>60 ml/min/1.73 sqM) Est GFR (CKD-EPI)NonAf (>60 ml/min/1.73 sqM) Glucose (74-99) mg/dL Calcium (8.4-10.2) mg/dL Magnesium (1.6-2.3) mg/dL Total Bilirubin (0.2-1.3) mg/dL AST (17-59) U/L ALT (4-49) U/L Alkaline Phosphatase (38-126) U/L Troponin I <0.012 (0.000-0.034) ng/mL Total Protein (6.3-8.2) g/dL Albumin (3.5-5.0) g/dL Critical Care Time Critical Care Time: Yes Total Critical Care Time: 35 Disposition Clinical Impression: Syncope, Hyperkalemia Disposition: ADMITTED IP TO THIS HOSP Condition: Fair Referrals: Aman Smyth MD [Primary Care Provider] - 1-2 days Time of Disposition: 13:35
[2024-02-28] MEDS ORDERED: NALOXONE 0.4 MG/ML 1 ML VIAL IV PRN (13:35)
[2024-02-28] MEDS ORDERED: ACETAMINOPHEN TAB 325 MG TAB PO PRN (13:35)
[2024-02-28] MEDS: INSULIN REGULAR 100 UNIT/ML VIAL (IV) IV ONE (13:52)
[2024-02-28] MEDS: DEXTROSE 50% SYRINGE 50 ML IVP ONE (13:53)
[2024-02-28] MEDS: SODIUM CHLORIDE 0.9% 1,000 ML IV SCH (13:56)
[2024-02-28] MEDS: SODIUM ZIRCONIUM CYCLOSILICATE 10 GM PACKET PO ONE (15:15)
--- NOTE | 2024-02-28 16:17 | P.HPIM ---
History of Present Illness H&P Date: 02/28/24 Patient is a 58-year-old male with CAD, CVA, hypertension, hyperlipidemia, diabetes, seizures (has vagus nerve stimulator, has had episodes of status epilepticus) who came in due to syncope. Patient reported that yesterday evening he was experiencing diarrhea with more than 5 episodes that were liquid brown stool. He had associated dizziness, sweats at the time. He sought care today at an urgent care and was still experiencing dizziness and nausea. While being evaluated in the urgent care, patient dropped to the ground but did not lose consciousness. He has not had an episode like this before. He denies vomiting, hematochezia, chest pain, palpitations, focal weakness, changes in sensation of any extremity, tingling, facial asymmetry, vocal changes, tremors, shortness of breath, leg tenderness, fever, chills, cough, recent sick contacts, or recent travel. He was admitted on 01/04 for seizures and was found that his Depakote was at subtherapeutic levels. He was placed on brivaracetam, carbamazepine, Depakote increased to 1000 mg twice daily and Lamictal. In the ED, EKG showed sinus rhythm with a rate of 86, normal axis, no ST-T changes, no peaked T waves, QTc 379 MS. WBC 10.1 hemoglobin 15.4 platelet count 205 thousand PT 10.6 INR 1 PTT 22.7 sodium 131 potassium 6.1 BUN 16 creatinine 1.08 glucose 136 calcium 8.3 magnesium 1.6 AST 27 ALT 22 alk phos 71 troponin negative at less than 0.012 albumin 4. On admission, patient was afebrile 98.2 Fahrenheit pulse 90 blood pressure 128/79 oxygen saturation 97% on room air Review of systems: Pertinent positives and negatives as discussed in HPI, a complete review of systems was performed and all other systems are negative. Family history: No known significant medical history Social history: Tobacco: Denies tobacco use Alcohol: denies alcohol use Recreational drugs: Denies illicit drug use Travel: No recent travel Physical examination: Vital signs reviewed General: In mild distress, lethargic Derm: no unusual rashes/lesions, warm, scar on right frontal area of the skull Head: atraumatic, normocephalic, symmetric Eyes: EOMI, anicteric sclera, pupils equal round reactive to light ENT: Nose and ears atraumatic Neck: No cervical lymphadenopathy, trachea midline, supple Mouth: no lip lesion, mucus membranes moist Cardiovascular: S1S2 tachycardic no murmur Lungs: CTA bilateral, no rhonchi, no rales, no accessory muscle use Abdominal: soft, nondistended, umbilical area tender to light palpation, no guarding Ext: muscle strength 5 out of 5 in all 4 extremities grossly, no gross muscle atrophy, no contractures, positive dorsalis pedis pulse bilateral, no extremity edema Neuro: CN II-XI grossly intact, no gross focal neuro deficits Psych: Alert and oriented x 3, appropriate affect and mood Assessment/Plan: 58-year-old male with history of CAD, seizures, and stroke came in for evaluation of syncope. #. Syncope likely orthostatic due to diarrhea, rule out other causes #. History of seizure with status epilepticus #. Hyperkalemia Cardiac monitoring Fall precautions Seizure precautions Obtain orthostatics Echocardiogram Check drug levels of carbamazepine, lamotrigine, valproic acid CPK level Repeat BMP at 1730 CBC, BMP and Mag at a.m. Continue 0.9 normal saline 75 cc/h Resume home brivaracetam, carbamazepine, divalproex, and lamotrigine Lokelma and insulin initiated in the ED. Consider additional Lokelma dose if Potassium remains elevated Chronic Conditions: #. CAD #. Hypertension #. Hyperlipidemia #. History of CVA with residuals #. TAISHA not on CPAP Resume Atorvastsin, Plavix, ezetimibe and niacin Hold amlodipine for now F: 0.9 normal saline 75 cc/h E: None for now N: Heart healthy diet. Low potassium A: On fall precautions. Will need assistance with ambulation DVT ppx: Lovenox 40 mg SQ daily Dispo: The patient is admitted with an anticipated greater than 2 midnight stay for evaluation of syncope and hyperkalemia CODE STATUS: Full Discussed with: Patient Anticipated discharge place: Home Sole Hackett MD PGY-1 IM Dictation was produced using [employer] dictation software. please excuse any grammatical, word or spelling errors. A total of 65 minutes was spent on the care of this complex patient more than 50% of the time was spent in counseling and care coordination. I have seen and evaluated the patient today. Discussed with the resident and agree with the residents finding and plan as documented in the resident's note. Changes highlighted in blue font. Past Medical History Past Medical History: CVA/TIA, Diabetes Mellitus, Hyperlipidemia, Hypertension, Memory Impairment, Myocardial Infarction ([place]), Seizure Disorder, Sleep Apnea/CPAP/BIPAP Additional Past Medical History / Comment(s): TIA-some slight residual left sided weakness-resolved, "borderline diabetes"-diet control, no CPAP, has vagus nerve stimulator, hx migraines, epilepsy last seizure 1 month ago, seizures x2 (04/23/23) Last Myocardial Infarction Date:: 2015 History of Any Multi-Drug Resistant Organisms: None Reported Past Surgical History: Adenoidectomy, Ear Surgery, Heart Catheterization, Tonsillectomy Additional Past Surgical History / Comment(s): TUBES IN EARS, VAGUS NERVE STIM ULATOR IMPLANT, responsive neuro stimulator placed 2021 Past Anesthesia/Blood Transfusion Reactions: Previous Problems w/ Anesthesia Additional Past Anesthesia/Blood Transfusion Reaction / Comment(s): STATES A LONG TIME TO WAKE UP AFTER ANESTHESIA. Past Psychological History: No Psychological Hx Reported Smoking Status: Never smoker Past Alcohol Use History: None Reported Past Drug Use History: None Reported - Past Family History Brother(s) Family Medical History: Cancer Additional Family Medical History / Comment(s): prostate CA with mets Medications and Allergies Home Medications Medication Instructions Recorded Confirmed Type Clopidogrel [Plavix] 75 mg PO DAILY 03/16/17 02/28/24 History Divalproex ER [Depakote ER] 1,000 mg PO BID 05/26/18 02/28/24 History Multivitamins, Thera [Multivitamin 1 tab PO DAILY@139905/26/18 02/28/24 History (formulary)] Niacin (Inositol Niacinate) 500 mg PO DAILY@1400 05/26/18 02/28/24 History [Niacin 500 mg Capsule] Atorvastatin Calcium [Lipitor] 80 mg PO HS 10/30/19 02/28/24 History Folic Acid 0.8 mg PO DAILY@1400 10/30/19 02/28/24 History amLODIPine [Norvasc] 2.5 mg PO HS 10/30/19 02/28/24 History Cholecalciferol [Vitamin D3 (125 125 mcg PO DAILY@1400 07/12/21 02/28/24 History Mcg = 5000 Iu)] Ezetimibe [Zetia] 10 mg PO DAILY 07/12/21 02/28/24 History Thiamine [Vitamin B-1] 100 mg PO DAILY@1400 07/12/21 02/28/24 History carBAMazepine 100 mg PO DAILY 07/12/21 02/28/24 History carBAMazepine 200 mg PO BID@1200,2000 07/12/21 02/28/24 History rOPINIRole HCL [Requip] 1 mg PO BID 09/23/21 02/28/24 History lamoTRIgine [LaMICtal] 100 mg PO BID 01/31/23 02/28/24 History Brivaracetam [Briviact] 100 mg PO BID 10/11/23 02/28/24 History Bimatoprost [Lumigan 0.01% Ophth 1 drop BOTH EYES HS 01/05/24 02/28/24 History Soln] Acetaminophen Tab [Tylenol] 325 mg PO Q6H PRN 02/28/24 02/28/24 History Allergies Allergy/AdvReac Type Severity Reaction Status Date / Time No Known Allergies Allergy Verified 02/28/24 15:53 Physical Exam Vitals: Vital Signs Temp Pulse Resp BP Pulse Ox 02/28/24 11:35 98.2 F 90 18 128/79 97 Intake and Output 02/27/24 02/28/24 02/28/24 22:59 06:59 14:59 Other: Weight 95.254 kg Results CBC & Chem 7: 02/28/24 12:02 02/28/24 12:42 Labs: Abnormal Lab Results - Last 24 Hours (Table) 02/28/24 02/28/24 02/28/24 Range/Units 12:02 12:02 12:42 Neutrophils # 9.4 H (1.3-7.7) k/uL Lymphocytes # 0.2 L (1.0-4.8) k/uL Sodium 131 L (137-145) mmol/L Potassium 6.1 H* 6.0 H (3.5-5.1) mmol/L Glucose 136 H (74-99) mg/dL Calcium 8.3 L (8.4-10.2) mg/dL
[2024-02-28 16:38] LABS: Valproic Acid (Depakene) 46.9 ug/mL
[2024-02-28 17:09] LABS: African American GFR (CKD) >90 (>60 ml/min/1.73 sqM); Anion Gap 4 mmol/L; Blood Urea Nitrogen 14 mg/dL (9-20); Calcium 7.9 mg/dL (8.4-10.2); Carbon Dioxide 25 mmol/L (22-30); Chloride 103 mmol/L (98-107); Glucose 106 mg/dL (74-99); Non-African American GFR(CKD) >90 (>60 ml/min/1.73 sqM); Potassium 4.7 mmol/L (3.5-5.1); Sodium 132 mmol/L (137-145)
[2024-02-28 20:55] LABS: Glucose,Whole Blood 90 mg/dL (70-110)
[2024-02-28] MEDS ORDERED: ONDANSETRON 4 MG/2 ML VIAL IVP PRN (21:14)
[2024-02-28] MEDS: NON FORMULARY DRUG (Brivaracetam [Briviact] 100 MG Tablet) PO SCH (21:20)
[2024-02-28] MEDS: ATORVASTATIN 80 MG TAB PO SCH (21:20)
[2024-02-28] MEDS: carBAMazepine 200 MG TAB PO SCH (21:20)
[2024-02-28] MEDS: DIVALPROEX ER 500 MG TAB.ER.24H PO SCH (21:20)
[2024-02-28] MEDS: lamoTRIgine 100 MG TAB PO SCH (21:21)
[2024-02-28] MEDS: LATANOPROST 0.005% OPHTH DROPS 2.5 ML BTL BOTH EYES SCH (21:21)
[2024-02-28] MEDS ORDERED: LOPERAMIDE 2 MG CAP PO PRN (22:05)
[2024-02-28] MEDS: LOPERAMIDE 2 MG CAP PO STA (22:17)
[2024-02-28 22:24] LABS: Appearance,Urine Clear (Clear); Bilirubin,Urine Negative (Negative); Blood,Urine Negative (Negative); Color,Urine Yellow; Glucose,Urine (UA) Negative (Negative); Ketones,Urine Trace (Negative); Leukocyte Esterase,Urine Negative (Negative); Nitrite,Urine Negative (Negative); PH, Urine 5.5 (5.0-8.0); Protein,Urine Trace (Negative); Specific Gravity,Urine 1.026 (1.001-1.035); Urobilinogen,Urine <2.0 mg/dL (<2.0)
[2024-02-29 02:44] LABS: Carbamazepine (Tegretol) 7.1 UG/ML (4.0-12.0)
[2024-02-29 05:29] LABS: Glucose,Whole Blood 96 mg/dL (70-110)
[2024-02-29] MEDS: carBAMazepine 200 MG TAB PO SCH (08:04)
[2024-02-29] MEDS: EZETIMIBE 10 MG TAB PO SCH (08:05)
[2024-02-29] MEDS: CLOPIDOGREL 75 MG TAB PO SCH (08:05)
[2024-02-29] MEDS: ENOXAPARIN 40 MG/0.4 ML SYRINGE SQ SCH (08:06)
[2024-02-29 08:47] LABS: Basophils # (A) 0.01 X 10*3/uL (0.00-0.10); Basophils % (A) 0.2 %; Eosinophils # (A) 0 X 10*3/uL (0.04-0.35); Eosinophils % (A) 0 %; HCT 40.1 % (39.6-50.0); HGB 13.1 g/dL (13.0-17.0); Lymphocytes # (A) 0.71 X 10*3/uL (0.90-5.00); Lymphocytes % (A) 11.1 %; MCH 30.3 pg (27.0-32.0); MCHC 32.7 g/dL (32.0-37.0); MCV 92.8 FL (80.0-97.0); Mean Platelet Volume 10.2 FL (9.5-12.2); Monocytes # (A) 0.59 X 10*3/uL (0.20-1.00); Monocytes % (A) 9.2 %; NRBC Per 100 WBC 0 X 10*3/uL (0.00-0.01); Neutrophils # (A) 5.09 X 10*3/uL (1.80-7.70); Neutrophils % (A) 79.2 %; Platelet Count 173 X 10*3/uL (140-440); RBC 4.32 X 10*6/uL (4.40-5.60); RDW 14.3 % (11.5-14.5); WBC 6.42 X 10*3/uL (4.50-10.00)
[2024-02-29 08:55] LABS: Glucose 103 mg/dL (70-110); Magnesium 1.7 mg/dL (1.5-2.4)
[2024-02-29 08:56] LABS: Calcium 7.7 mg/dL (8.7-10.3); Carbon Dioxide 24.9 mmol/L (21.6-31.8); Chloride 99 mmol/L (96-109); Potassium 4.2 mmol/L (3.5-5.5); Sodium 134 mmol/L (135-145)
--- NOTE | 2024-02-29 10:44 | CA ---
Transthoracic Echo Report Name: Jun Navarrete Age: 58 Gender: M : 1965 Exam Date: 02/28/2024 18:08 Exam Location: [facility] Ht (in): 66 Wt (lb): 210 Ordering Physician: Sole Hackett MD Attending/Referring Phys: Hydraulic Mechanic Radha Miner RDCS Procedure CPT: Indications: Syncope Cardiac Hx: Technical Quality: Technically difficult study Contrast 1: Definity Total Dose (mL): 2 Contrast 2: Total Dose (mL): MEASUREMENTS (Male / Female) Normal Values 2D ECHO LV Diastolic Diameter PLAX 5.2 cm 4.2 - 5.9 / 3.9 - 5.3 cm LV Systolic Diameter PLAX 3.6 cm IVS Diastolic Thickness 1.0 cm 0.6 - 1.0 / 0.6 - 0.9 cm LVPW Diastolic Thickness 1.0 cm 0.6 - 1.0 / 0.6 - 0.9 cm LV Relative Wall Thickness 0.4 LVOT Diameter 2.2 cm LV Diastolic Volume MOD BP 103.8 cm??? 67 - 155 / 56 - 104 cm??? LV Systolic Volume MOD BP 32.2 cm??? 22 - 58 / 19 - 49 cm??? LV Ejection Fraction MOD BP 68.9 % >= 55 % LV Cardiac Index MOD BP 2937.9 cm???/min???m??? LV Diastolic Volume MOD 4C 116.5 cm??? LV Systolic Volume MOD 4C 37.1 cm??? LV Ejection Fraction MOD 4C 68.2 % LV Cardiac Index MOD 4C 3261.0 cm???/min???m??? LV Diastolic Length 4C 8.4 cm LV Systolic Length 4C 6.5 cm LV Diastolic Volume MOD 2C 84.0 cm??? LV Systolic Volume MOD 2C 24.7 cm??? LV Ejection Fraction MOD 2C 70.6 % LV Cardiac Index MOD 2C 2433.4 cm???/min???m??? LV Diastolic Length 2C 7.6 cm LV Systolic Length 2C 5.7 cm LA Volume 38.7 cm??? 18 - 58 / 22 - 52 cm??? LA Volume Index 18.0 cm???/m??? 16 - 28 cm???/m??? Ascending Aorta Diameter 3.9 cm DOPPLER AV Peak Velocity 231.0 cm/s AV Peak Gradient 21.3 mmHg AV Mean Velocity 160.9 cm/s AV Mean Gradient 11.5 mmHg AV Velocity Time Integral 39.7 cm LVOT Peak Velocity 90.9 cm/s LVOT Peak Gradient 3.3 mmHg LVOT Velocity Time Integral 17.6 cm LVOT Stroke Volume 67.2 cm??? LVOT Stroke Volume Index 32.9 ml/m??? LVOT Cardiac Index 2759.9 cm???/min???m??? AV Area Cont Eq vti 1.7 cm??? AV Area Cont Eq pk 1.5 cm??? MV Area PHT 5.6 cm??? Mitral E Point Velocity 63.9 cm/s Mitral A Point Velocity 63.9 cm/s Mitral E to A Ratio 1.0 MV Deceleration Time 136.4 ms PV Peak Velocity 83.5 cm/s PV Peak Gradient 2.8 mmHg FINDINGS Left Ventricle Left ventricular ejection fraction is estimated at 55-60 %. Left ventricular cavity size normal. Left ventricular wall thickness normal. No obvious regional wall motion abnormalities. Right Ventricle Normal right ventricular size and function. Unable to estimate the right ventricular systolic pressure. Right Atrium Normal right atrial size. Left Atrium Normal left atrial size. Mitral Valve Structurally normal mitral valve. No mitral stenosis, regurgitation or prolapse. Aortic Valve Aortic valve not well visualized. Aortic valve sclerosis. Mild aortic stenosis. No aortic regurgitation. Tricuspid Valve Structurally normal tricuspid valve. No tricuspid stenosis. Trace tricuspid regurgitation. Pulmonic Valve Pulmonic valve not well visualized. No pulmonic stenosis. Pericardium No pericardial effusion. Aorta Normal size aortic root and proximal ascending aorta. CONCLUSIONS Technically difficult study. Definity ECHO contrast used for improved visualization of the endocardial borders (inadequate visualization of two or more contiguous segments). Normal left ventricular size and systolic function Very limited Doppler study Mild aortic stenosis with a mean gradient of 11 mmHg Previewed by: Dr. Keyanna Moreno MD (Electronically Signed) Final Date: 29 February 2024 10:43
--- NOTE | 2024-02-29 11:04 | P.PN ---
Subjective Progress Note Date: 02/29/24 Patient is a 58-year-old male with CAD, CVA, hypertension, hyperlipidemia, diabetes, seizures (has vagus nerve stimulator, has had episodes of status epilepticus) who came in due to syncope. Patient reported that yesterday evening he was experiencing diarrhea with more than 5 episodes that were liquid brown stool. He had associated dizziness, sweats at the time. He sought care today at an urgent care and was still experiencing dizziness and nausea. While being evaluated in the urgent care, patient dropped to the ground but did not lose consciousness. He has not had an episode like this before. He denies vomiting, hematochezia, chest pain, palpitations, focal weakness, changes in sensation of any extremity, tingling, facial asymmetry, vocal changes, tremors, shortness of breath, leg tenderness, fever, chills, cough, recent sick contacts, or recent travel. He was admitted on 01/04 for seizures and was found that his Depakote was at subtherapeutic levels. He was placed on brivaracetam, c arbamazepine, Depakote increased to 1000 mg twice daily and Lamictal. In the ED, EKG showed sinus rhythm with a rate of 86, normal axis, no ST-T changes, no peaked T waves, QTc 379 MS. WBC 10.1 hemoglobin 15.4 platelet count 205 thousand PT 10.6 INR 1 PTT 22.7 sodium 131 potassium 6.1 BUN 16 creatinine 1.08 glucose 136 calcium 8.3 magnesium 1.6 AST 27 ALT 22 alk phos 71 troponin negative at less than 0.012 albumin 4. On admission, patient was afebrile 98.2 Fahrenheit pulse 90 blood pressure 1 28/79 oxygen saturation 97% on room air 02/29/2024 patient seen and examined at bedside. Patient reported to still have loose stools and has had 7 episodes in the last 24 hours. No acute events overnight. Vital signs stable overnight. WBC 6.42 hemoglobin 13.1 platelet c ount 1 73,000 sodium 134 potassium 4.2 BUN 12 creatinine 1 glucose 103 calcium 7.7. CPK 131 Review of systems: Pertinent positives and negatives as discussed in HPI, a complete review of systems was performed and all other systems are negative. Pertinent imaging and labs reviewed. Physical examination: Vital signs reviewed General: non toxic, no distress, appears at stated age Derm: no unusual rashes/lesions, warm Head: atraumatic, normocephalic, symmetric Eyes: EOMI, anicteric sclera, pupils equal round reactive to light ENT: Nose and ears atraumatic Neck: No cervical lymphadenopathy, trachea midline, supple Mouth: no lip lesion, mucus membranes moist Cardiovascular: S1S2 reg, no murmur Lungs: CTA bilateral, no rhonchi, no rales, no accessory muscle use Abdominal: soft, tenderness in umbilical area on light palpation, no guarding Ext: muscle strength 5 out of 5 in all 4 extremities grossly, no gross muscle atrophy, no contractures, positive dorsalis pedis pulse bilateral, no extremity edema Neuro: CN II-XI grossly intact, no gross focal neuro deficits Psych: Alert and oriented x3, appropriate affect and mood Assessment/Plan: Assessment/Plan: 58-year-old male with history of CAD, seizures, and stroke came in for evaluation of syncope. #. Syncope likely orthostatic due to diarrhea, rule out other causes, resolved #. Diarrhea likely inflammatory, rule out other causes #. History of seizure with status epilepticus #. Hyperkalemia, resolved Cardiac monitoring Fall precautions Seizure precautions Obtain orthostatics Echocardiogram left ventricular ejection fraction estimated at 55 to 60% with no wall thickness or obvious wall motion abnormality. Mild aortic stenosis Normal levels of carbamazepine 7.1, lamotrigine 2.9 valproic acid subtherapeutic at 46.9 CPK level normal at 131 Repeat BMP at 1730 showed potassium normal at 4.7 CBC, BMP at a.m. Continue 0.9 normal saline 75 cc/h Resume home brivaracetam, carbamazepine, divalproex, and lamotrigine Lokelma and insulin given once in the ED Chronic Conditions: #. CAD #. Hypertension #. Hyperlipidemia #. History of CVA with residuals #. TAISHA not on CPAP Resume Atorvastsin, Plavix, ezetimibe and niacin Hold amlodipine for now F: 0.9 normal saline 75 cc/h E: None for now N: Heart healthy diet. Low potassium A: On fall precautions. Will need assistance with ambulation DVT ppx: Lovenox 40 mg SQ daily Sole Hackett MD PGY-1/[employer] Dictation was produced using [employer] dictation software. please excuse any grammatical, word or spelling errors. I have seen and evaluated the patient today. Discussed with the resident and agree with the residents finding and plan as documented in the resident's note. Changes highlighted in blue font. Objective - Vital Signs Vital signs: Vital Signs Temp 98.4 F 02/29/24 07:00 Pulse 79 02/29/24 07:00 Resp 16 02/29/24 07:00 BP 104/67 02/29/24 07:00 Pulse Ox 96 02/29/24 07:00 FiO2 Intake & Output 02/28/24 02/29/24 02/29/24 18:59 06:59 18:59 Intake Total 118 Balance 118 Weight 95.254 kg 95.254 kg Intake: Oral 118 Other: Voiding Method Toilet Urinal # Voids 1 # Bowel Movements 2 - Labs CBC & Chem 7: 02/29/24 05:04 02/29/24 05:04 Labs: Abnormal Lab Results - Last 24 Hours (Table) 02/28/24 02/28/24 02/28/24 Range/Units 12:02 12:02 12:42 RBC (4.40-5.60) X 10*6/uL Neutrophils # 9.4 H (1.3-7.7) k/uL Lymphocytes # 0.2 L (1.0-4.8) k/uL Eosinophils # (0.04-0.35) X 10*3/uL Sodium 131 L (137-145) mmol/L Potassium 6.1 H* 6.0 H (3.5-5.1) mmol/L Glucose 136 H (74-99) mg/dL Calcium 8.3 L (8.4-10.2) mg/dL Urine Protein (Negative) Urine Ketones (Negative) 02/28/24 02/28/24 02/29/24 Range/Units 16:45 22:13 05:04 RBC 4.32 L (4.40-5.60) X 10*6/uL Neutrophils # (1.3-7.7) k/uL Lymphocytes # 0.71 L (1.0-4.8) k/uL Eosinophils # 0 L (0.04-0.35) X 10*3/uL Sodium 132 L (137-145) mmol/L Potassium (3.5-5.1) mmol/L Glucose 106 H (74-99) mg/dL Calcium 7.9 L (8.4-10.2) mg/dL Urine Protein Trace H (Negative) Urine Ketones Trace H (Negative) 02/29/24 Range/Units 05:04 RBC (4.40-5.60) X 10*6/uL Neutrophils # (1.3-7.7) k/uL Lymphocytes # (1.0-4.8) k/uL Eosinophils # (0.04-0.35) X 10*3/uL Sodium 134 L (137-145) mmol/L Potassium (3.5-5.1) mmol/L Glucose (74-99) mg/dL Calcium 7.7 L (8.4-10.2) mg/dL Urine Protein (Negative) Urine Ketones (Negative)
[2024-02-29] MEDS: NON FORMULARY DRUG (Brivaracetam [Briviact] 50 MG) PO SCH (11:57)
[2024-02-29] MEDS: NON FORMULARY DRUG (Brivaracetam [Briviact] 100 MG) PO SCH (11:57)
[2024-02-29 12:27] LABS: Glucose,Whole Blood 96 mg/dL (70-110)
[2024-02-29] MEDS: BRIVARACETAM 150 MG PO SCH (12:51)
[2024-02-29] MEDS: NIACIN 500 MG PO SCH (13:26)
[2024-02-29] MEDS: LOPERAMIDE 2 MG CAP PO PRN (13:27)
[2024-02-29] MEDS: MULTIVITAMINS, THERA 1 EACH TAB PO SCH (13:28)
[2024-02-29] MEDS: CHOLECALCIFEROL 125 MCG (5000 IU) TABLET PO SCH (13:28)
[2024-02-29] MEDS: FOLIC ACID 1 MG TAB PO SCH (13:28)
[2024-02-29] MEDS: THIAMINE 100 MG TAB PO SCH (13:28)
[2024-02-29] MEDS ORDERED: NIACIN TR 500 MG CAPLET PO SCH (14:00)
[2024-02-29 17:08] LABS: Glucose,Whole Blood 87 mg/dL (70-110)
[2024-02-29 21:49] LABS: Glucose,Whole Blood 90 mg/dL (70-110)
[2024-03-01 06:25] LABS: Glucose,Whole Blood 87 mg/dL (70-110)
[2024-03-01 08:41] LABS: Basophils # (A) 0.02 X 10*3/uL (0.00-0.10); Basophils % (A) 0.3 %; Eosinophils # (A) 0.03 X 10*3/uL (0.04-0.35); Eosinophils % (A) 0.5 %; HCT 38.5 % (39.6-50.0); HGB 12.9 g/dL (13.0-17.0); Lymphocytes # (A) 1.06 X 10*3/uL (0.90-5.00); Lymphocytes % (A) 17.5 %; MCH 31.1 pg (27.0-32.0); MCHC 33.5 g/dL (32.0-37.0); MCV 92.8 FL (80.0-97.0); Mean Platelet Volume 10.5 FL (9.5-12.2); Monocytes # (A) 0.87 X 10*3/uL (0.20-1.00); Monocytes % (A) 14.3 %; NRBC Per 100 WBC 0 X 10*3/uL (0.00-0.01); Neutrophils # (A) 4.07 X 10*3/uL (1.80-7.70); Neutrophils % (A) 67.1 %; Platelet Count 163 X 10*3/uL (140-440); RBC 4.15 X 10*6/uL (4.40-5.60); RDW 14.3 % (11.5-14.5); WBC 6.07 X 10*3/uL (4.50-10.00)
[2024-03-01 08:42] VITALS: BP 118/76; PULSE 74; RESP 16; TEMP 98.4
[2024-03-01 09:34] LABS: Blood Urea Nitrogen 4.8 mg/dL (9.0-27.0); Carbon Dioxide 23.6 mmol/L (21.6-31.8); Chloride 105 mmol/L (96-109); Glucose 90 mg/dL (70-110); Potassium 3.6 mmol/L (3.5-5.5); Sodium 140 mmol/L (135-145)
--- NOTE | 2024-03-01 15:35 | P.DS ---
Providers Date of admission: 02/28/24 13:46 Expected date of discharge: 03/01/24 Attending physician: Giovanni Long Primary care physician: Aman Smyth [facility] Course: Final Diagnosis: #. Syncope likely orthostatic due to diarrhea, other causes ruled out, resolved #. Acute/subacute diarrhea #. History of seizure with status epilepticus #. Hyperkalemia, resolved #. CAD #. Hypertension #. Hyperlipidemia #. History of CVA with residuals #. TAISHA not on CPAP Hospital Course: Patient is a 58-year-old male with CAD, CVA, hypertension, hyperlipidemia, diabetes, seizures (has vagus nerve stimulator, has had episodes of status epilepticus) who came in due to syncope. Patient reported that 02/26 evening he was experiencing diarrhea with more than 5 episodes that were liquid brown stool. He had associated dizziness, sweats at the time. He sought care today at an urgent care and was still experiencing dizziness and nausea. While being evaluated in the urgent care, patient dropped to the ground but did not lose consciousness. He has not had an episode like this before. He denies vomiting, hematochezia, chest pain, palpitations, focal weakness, changes in sensation of any extremity, tingling, facial asymmetry, vocal changes, tremors, shortness of breath, leg tenderness, fever, chills, cough, recent sick contacts, or recent travel. He was admitted on 01/04 for seizures and was found that his Depakote was at subtherapeutic levels. He was placed on brivaracetam, carbamazepine, Depakote increased to 1000 mg twice daily and Lamictal. In the ED, EKG showed sinus rhythm with a rate of 86, normal axis, no ST-T changes, no peaked T waves, QTc 379 MS. WBC 10.1 hemoglobin 15.4 platelet count 205 thousand PT 10.6 INR 1 PTT 22.7 sodium 131 potassium 6.1 BUN 16 creatinine 1.08 glucose 136 calcium 8.3 magnesium 1.6 AST 27 ALT 22 alk phos 71 troponin negative at less than 0.012 albumin 4. On admission, patient was afebrile 98.2 Fahrenheit pulse 90 blood pressure 128/79 oxygen saturation 97% on room air Patient was admitted for evaluation of syncope, diarrhea and hyperkalemia. IV fluids was initiated and patient was provided Lokelma and insulin in the ED and potassium normalized. Seizure medication resumed and there is interim levels were checked if they met therapeutic levels. Orthostatic blood pressure was monitored and improved throughout hospital stay. Patient's diarrhea improved throughout hospital stay. He had no new symptoms or complications. Patient is discharged today and prescribed Imodium and was advised to follow-up with PCP on outpatient basis for further evaluation of etiology of diarrhea. Physical examination: Vital signs reviewed General: non toxic, no distress, appears at stated age, Derm: no unusual rashes/lesions, warm Head: atraumatic, normocephalic, symmetric Eyes: EOMI, anicteric sclera, pupils equal round reactive to light ENT: Nose and ears atraumatic Neck: No cervical lymphadenopathy, trachea midline, supple Mouth: no lip lesion, mucus membranes moist Cardiovascular: S1S2 reg, no murmur Lungs: CTA bilateral, no rhonchi, no rales, no accessory muscle use Abdominal: soft, nondistended, nontender to palpation, no guarding Ext: muscle strength 5 out of 5 in all 4 extremities grossly, no gross muscle atrophy, no contractures, positive dorsalis pedis pulse bilateral, no extremity edema Neuro: CN II-XI grossly intact, no gross focal neuro deficits Psych: Alert, oriented, appropriate affect and mood A total of 33 minutes of time were spent preparing this complex discharge summary. Patient was discharged on 03/01/2024 at 917. Patient Condition at Discharge: Stable Plan - Discharge Summary Discharge Rx Participant: No New Discharge Prescriptions: New Loperamide [Imodium] 2 mg PO QID PRN #40 cap PRN Reason: Diarrhea Continue Clopidogrel [Plavix] 75 mg PO DAILY Divalproex ER [Depakote ER] 1,000 mg PO BID Niacin (Inositol Niacinate) [Niacin 500 mg Capsule] 500 mg PO DAILY@1400 Multivitamins, Thera [Multivitamin (formulary)] 1 tab PO DAILY@1400 amLODIPine [Norvasc] 2.5 mg PO HS Atorvastatin Calcium [Lipitor] 80 mg PO HS Folic Acid 0.8 mg PO DAILY@1400 Thiamine [Vitamin B-1] 100 mg PO DAILY@1400 Cholecalciferol [Vitamin D3 (125 Mcg = 5000 Iu)] 125 mcg PO DAILY@1400 lamoTRIgine [LaMICtal] 100 mg PO BID Acetaminophen Tab [Tylenol] 325 mg PO Q6H PRN PRN Reason: Fever And/ Or Pain Ezetimibe [Zetia] 10 mg PO DAILY carBAMazepine 200 mg PO BID@1199,1999 carBAMazepine 100 mg PO DAILY rOPINIRole HCL [Requip] 1 mg PO BID Bimatoprost [Lumigan 0.01% Ophth Soln] 1 drop BOTH EYES HS Changed Brivaracetam [Briviact] 150 mg PO BID #0 Discharge Medication List Clopidogrel [Plavix] 75 mg PO DAILY 03/16/17 [History] Divalproex ER [Depakote ER] 1,000 mg PO BID 05/26/18 [History] Multivitamins, Thera [Multivitamin (formulary)] 1 tab PO DAILY@1400 05/26/18 [History] Niacin (Inositol Niacinate) [Niacin 500 mg Capsule] 500 mg PO DAILY@1400 05/26/18 [History] Atorvastatin Calcium [Lipitor] 80 mg PO HS 10/30/19 [History] Folic Acid 0.8 mg PO DAILY@1400 10/30/19 [History] amLODIPine [Norvasc] 2.5 mg PO HS 10/30/19 [History] Cholecalciferol [Vitamin D3 (125 Mcg = 5000 Iu)] 125 mcg PO DAILY@1400 07/12/21 [History] Ezetimibe [Zetia] 10 mg PO DAILY 07/12/21 [History] Thiamine [Vitamin B-1] 100 mg PO DAILY@1400 07/12/21 [History] carBAMazepine 100 mg PO DAILY 07/12/21 [History] carBAMazepine 200 mg PO BID@1200,199907/12/21 [History] rOPINIRole HCL [Requip] 1 mg PO BID 09/23/21 [History] lamoTRIgine [LaMICtal] 100 mg PO BID 01/31/23 [History] Bimatoprost [Lumigan 0.01% Ophth Soln] 1 drop BOTH EYES HS 01/05/24 [History] Acetaminophen Tab [Tylenol] 325 mg PO Q6H PRN 02/28/24 [History] Brivaracetam [Briviact] 150 mg PO BID #0 03/01/24 [Rx] Loperamide [Imodium] 2 mg PO QID PRN #40 cap 03/01/24 [Rx] Follow up Appointment(s)/Referral(s): Aman Smyth MD [Primary Care Provider] - 1-2 days Patient Instructions/Handouts: Syncope (DC) Activity/Diet/Wound Care/Special Instructions: Please follow up with your PCP Discharge Disposition: HOME SELF-CARE
== END 2024-03-01 11:01 | disposition home or self-care (01) ==
LOC: EC 11:32 → 6NMEDSUR 13:46
PROVIDERS: ADMIT Student in an Organized Health Care Education/Training Program; ATTEND Student in an Organized Health Care Education/Training Program
DX: R55 Syncope and collapse (principal); E87.5 Hyperkalemia; E86.0 Dehydration; R53.1 Weakness; R19.7 Diarrhea, unspecified; G40.901 Epilepsy, unspecified, not intractable, with status epilepticus; I35.0 Nonrheumatic aortic (valve) stenosis; I25.10 Atherosclerotic heart disease of native coronary artery without angina pectoris; I10 Essential (primary) hypertension; E78.5 Hyperlipidemia, unspecified; I69.30 Unspecified sequelae of cerebral infarction; G47.33 Obstructive sleep apnea (adult) (pediatric); E11.9 Type 2 diabetes mellitus without complications; Z79.02 Long term (current) use of antithrombotics/antiplatelets; Z79.52 Long term (current) use of systemic steroids; Z79.899 Other long term (current) drug therapy; Z96.82 Presence of neurostimulator
CPT/HCPCS: 96361 ×3; 96372 ×2; 96374; 96375; 99291; 36415; 93005; 93306; 80156; 80164; 80053; 80048 ×3; 80175; 82550; 83735 ×2; 84132; 84484; 85025 ×3; 85610; 85730; 81003; 87324; G0378 ×3; J2405; J1650 ×2; Q9957; 99285

== ENCOUNTER 2024-05-24 19:09 | Observation (INO) | payer OTHER, MEDICARE ==
--- NOTE | 2024-05-24 20:50 | CT ---
EXAMINATION TYPE: CT brain anselmoine wo con DATE OF EXAM: 05/24/2024 8:35 PM COMPARISON: 01/04/2024 CLINICAL INDICATION: Male, 59 years old with history of seizure, unk if pt hit head, Pt presents to [facility] by EMS for unwitnessed seizure while out shopping at [employer]. Pt has known hx of seizures last bein g 1 month prior., pain TECHNIQUE: CT of the brain is performed utilizing 3 mm thick sections through the posterior fossa and 3 mm thick sections through the remaining calvarium. Study is performed within 24 hours of arrival to the hospital. Contrast used: mL of , (none if empty) CT DLP: 1641.9 mGycm, Automated exposure control for dose reduction was used. FINDINGS: No abnormal hyperdensity is present to suggest an acute intracranial hemorrhage. No mass lesion is evident. No acute infarcts are evident. Ventricles and sulci are appropriate for the patient age. Stimulator lead is on the right adjacent to the right lateral ventricle extending from the frontal re gion. This causes some beam artifact. Paranasal sinuses and mastoid air cells within the [id number] are clear. IMPRESSIONS: 1. No acute intracranial process. Follow-up MRI can be performed as clinically indicated. 2. Stable appearance right-sided stimulator lead CT cervical spine. COMPARISON: 04/23/2023 TECHNIQUE: CT of the cervical spine is performed in the axial plane at 2 mm thick sections. Reconstr ucted images in the coronal, and sagittal plane are reviewed on the computer. FINDINGS: No acute fractures are evident. Vertebral body alignment is normal. Degenerative disc changes C5-6 C6-7 Vertebral body heights are preserved. Right foraminal stenosis present C6-7 from uncovertebral joint hypertrophy. Some mild left foraminal narrowing is present at C5-6. C5-6: Left paracentral endplate spurring is present with mild anterior thecal sac compression. No AP spinal canal stenosis is present. IMPRESSION: 1. No acute osseous abnormality cervical spine. 2. Some degenerative disc changes in the cervical spine C5-6 3. Foraminal narrowing C5-6 C6-7 [facility], , 05/24/2024 8:48 PM
[2024-05-24] MEDS: ACETAMINOPHEN TAB 500 MG TAB PO STA (20:53)
[2024-05-24 21:25] LABS: Basophils % (A) 0 %; Eosinophils % (A) 1 %; HCT 42.7 % (39.0-53.0); HGB 14.8 gm/dL (13.0-17.5); Lymphocytes # (A) 1.4 k/uL (1.0-4.8); Lymphocytes % (A) 23 %; MCH 31.9 pg (25.0-35.0); MCHC 34.6 g/dL (31.0-37.0); Mean Platelet Volume 7.9; Monocytes # (A) 0.5 k/uL (0-1.0); Monocytes % (A) 7 %; Neutrophils # (A) 4.2 k/uL (1.3-7.7); Neutrophils % (A) 66 %; Platelet Count 224 k/uL (150-450); RBC 4.64 m/uL (4.30-5.90); RDW 13.9 % (11.5-15.5); WBC 6.4 k/uL (3.8-10.6)
[2024-05-24 21:33] LABS: ALT 29 U/L (4-49); AST 38 U/L (17-59); African American GFR (CKD) >90 (>60 ml/min/1.73 sqM); Albumin 4.2 g/dL (3.5-5.0); Alcohol <10 mg/dL; Alkaline Phosphatase 72 U/L (38-126); Anion Gap 10 mmol/L; Blood Urea Nitrogen 12 mg/dL (9-20); Calcium 9.2 mg/dL (8.4-10.2); Carbon Dioxide 25 mmol/L (22-30); Chloride 99 mmol/L (98-107); Glucose 100 mg/dL (74-99); Magnesium 1.8 mg/dL (1.6-2.3); Non-African American GFR(CKD) >90 (>60 ml/min/1.73 sqM); Potassium 4.1 mmol/L (3.5-5.1); Sodium 134 mmol/L (137-145); Total Bilirubin 0.4 mg/dL (0.2-1.3)
[2024-05-24 21:38] LABS: Valproic Acid (Depakene) 64.6 ug/mL
[2024-05-24 21:57] LABS: Appearance,Urine Clear (Clear); Bilirubin,Urine Negative (Negative); Blood,Urine Negative (Negative); Color,Urine Colorless; Glucose,Urine (UA) Negative (Negative); Ketones,Urine Negative (Negative); Leukocyte Esterase,Urine Negative (Negative); Nitrite,Urine Negative (Negative); Protein,Urine Negative (Negative); Specific Gravity,Urine 1.011 (1.001-1.035); Urobilinogen,Urine <2.0 mg/dL (<2.0)
--- NOTE | 2024-05-24 23:41 | ED ---
Seizure HPI - General Chief Complaint: Seizure Stated Complaint: Seizure Time Seen by Provider: 05/24/24 19:20 Source: patient, EMS Mode of arrival: EMS Limitations: no limitations - History of Present Illness Initial Comments: 59-year-old male with past medical history of seizure disorder, TIA, diabetes, hypertension, hyperlipidemia who presents the emergency department with an unwitnessed seizure. Patient was out shopping at [facility] when he was found unresponsive on the floor. Patient has a known history of seizures with his last 1 being 1 month ago. Patient does not remember the incident. It is unsure if the patient hit his head. He is on blood thinners. He is placed in a c- collar by EMS. Patient is alert and oriented upon arrival to the hospital. States that he did take his seizure medications today and denies any missed doses. He denies drug or alcohol use. No chest pain or shortness of breath. Denies any pain in his extremities. No other alleviating, precipitating modifying factors - Related Data Home Medications Medication Instructions Recorded Confirmed Clopidogrel [Plavix] 75 mg PO DAILY 03/16/17 05/24/24 Divalproex ER [Depakote ER] 1,000 mg PO BID 05/26/18 05/24/24 Multivitamins, Thera [Multivitamin 1 tab PO DAILY@139905/26/18 05/24/24 (formulary)] Niacin (Inositol Niacinate) 500 mg PO DAILY@139905/26/18 05/24/24 [Niacin 500 mg Capsule] Atorvastatin Calcium [Lipitor] 80 mg PO HS 10/30/19 05/24/24 Folic Acid 0.8 mg PO DAILY@139910/30/19 05/24/24 Cholecalciferol [Vitamin D3 (125 125 mcg PO DAILY@139907/12/21 05/24/24 Mcg = 5000 Iu)] Ezetimibe [Zetia] 10 mg PO DAILY 07/12/21 05/24/24 Thiamine [Vitamin B-1] 100 mg PO DAILY@139907/12/21 05/24/24 carBAMazepine 100 mg PO DAILY 07/12/21 05/24/24 carBAMazepine 200 mg PO BID@1400,199907/12/21 05/25/24 rOPINIRole HCL [Requip] 1 mg PO BID 09/23/21 05/24/24 lamoTRIgine [LaMICtal] 100 mg PO BID 01/31/23 05/24/24 Bimatoprost [Lumigan 0.01% Ophth 1 drop BOTH EYES HS 01/05/24 05/24/24 Soln] Acetaminophen Tab [Tylenol] 325 mg PO Q6H PRN 02/28/24 05/24/24 Brivaracetam [Briviact] 50 mg PO BID 05/24/24 05/24/24 Brivaracetam [Briviact] 100 mg PO BID 05/24/24 05/24/24 Previous Rx's Medication Instructions Recorded Loperamide [Imodium] 2 mg PO QID PRN #40 cap 03/01/24 amLODIPine [Norvasc] 10 mg PO DAILY #60 tablet 05/26/24 lamoTRIgine [LaMICtal] 25 mg PO DAILY #60 tab 05/26/24 Allergies Allergy/AdvReac Type Severity Reaction Status Date / Time No Known Allergies Allergy Verified 05/24/24 21:05 Review of Systems ROS Statement: Those systems with pertinent positive or pertinent negative responses have been documented in the HPI. ROS Other: All systems not noted in ROS Statement are negative. Past Medical History Past Medical History: CVA/TIA, Diabetes Mellitus, Hyperlipidemia, Hypertension, Memory Impairment, Myocardial Infarction ([place]), Seizure Disorder, Sleep Apnea/CPAP/BIPAP Additional Past Medical History / Comment(s): TIA-some slight residual left sided weakness-resolved, "borderline diabetes"-diet control, no CPAP, has vagus nerve stimulator, hx migraines, epilepsy last seizure 1 month ago, seizures x2 (04/23/23) Last Myocardial Infarction Date:: 2015 History of Any Multi-Drug Resistant Organisms: None Reported Past Surgical History: Adenoidectomy, Ear Surgery, Heart Catheterization, Tonsillectomy Additional Past Surgical History / Comment(s): TUBES IN EARS, VAGUS NERVE STIMULATOR IMPLANT, responsive neuro stimulator placed 2021 Past Anesthesia/Blood Transfusion Reactions: Previous Problems w/ Anesthesia Additional Past Anesthesia/Blood Transfusion Reaction / Comment(s): STATES A LONG TIME TO WAKE UP AFTER ANESTHESIA. Past Psychological History: No Psychological Hx Reported Smoking Status: Never smoker Past Alcohol Use History: None Reported Past Drug Use History: None Reported - Past Family History Brother(s) Family Medical History: Cancer Additional Family Medical History / Comment(s): prostate CA with mets General Exam Limitations: no limitations General appearance: alert, in no apparent distress Head exam: Present: atraumatic, normocephalic, normal inspection Eye exam: Present: normal appearance, PERRL, EOMI. Absent: scleral icterus, conjunctival injection, periorbital swelling ENT exam: Present: normal exam, mucous membranes moist Neck exam: Present: normal inspection, other (C-collar in place). Absent: tenderness, meningismus, lymphadenopathy Respiratory exam: Present: normal lung sounds bilaterally. Absent: respiratory distress, wheezes, rales, rhonchi, stridor Cardiovascular Exam: Present: regular rate, normal rhythm, normal heart sounds. Absent: systolic murmur, diastolic murmur, rubs, gallop, clicks GI/Abdominal exam: Present: soft, normal bowel sounds. Absent: distended, tenderness, guarding, rebound, rigid Extremities exam: Present: normal inspection, full ROM, normal capillary refill. Absent: tenderness, pedal edema, joint swelling, calf tenderness Back exam: Present: normal inspection Neurological exam: Present: alert, oriented X3, CN II-XII intact Psychiatric exam: Present: normal affect, normal mood Skin exam: Present: warm, dry, intact, normal color. Absent: rash Course Vital Signs 05/24/24 05/24/24 05/24/24 19:12 22:00 23:02 Temperature 97.5 F L Pulse Rate 94 90 86 Respiratory 18 18 20 Rate Blood Pressure 177/88 162/87 157/99 O2 Sat by Pulse 98 97 97 Oximetry 05/25/24 05/25/24 05/25/24 06:00 11:00 16:56 Temperature 98.3 F Pulse Rate 66 70 68 Respiratory 18 16 18 Rate Blood Pressure 166/98 126/93 135/95 O2 Sat by Pulse 97 98 96 Oximetry 05/25/24 18:04 Temperature 97.7 F Pulse Rate 71 Respiratory 16 Rate Blood Pressure 132/82 O2 Sat by Pulse 97 Oximetry Medical Decision Making - Medical Decision Making Was pt. sent in by a medical professional or institution (, PA, OPHTHALMIC MEDICAL ASSISTANT, urgent care, hospital, or penitentiary...) When possible be specific @ -No Did you speak to anyone other than the patient for history (EMS, parent, family, police, friend...)? What history was obtained from this source @ -Spoke with EMS for history Did you review nursing and triage notes (agree or disagree)? Why? @ -I reviewed and agree with nursing and triage notes Were old charts reviewed (outside hosp., previous admission, EMS record, old EKG, old radiological studies, urgent care reports/EKG's, penitentiary records)? Report findings @ -I reviewed the patient's old medication list Differential Diagnosis (chest pain, altered mental status, abdominal pain women, abdominal pain men, vaginal bleeding, weakness, fever, dyspnea, syncope, headache, dizziness, GI bleed, back pain, seizure, CVA, palpatations, mental health, musculoskeletal)? @ -Differential Seizure: Recurrent seizure disorder, febrile seizure, alcohol withdrawal, stimulants, meningitis, encephalitis, intercranial hemorrhage, intracranial tumor, stroke, eclampsia, thyrotoxicosis, hypocalcemia, hyponatremia, hypernatremia, hypomagnesemia, psychogenic, this is not meant to be an all-inclusive list. EKG interpreted by me (3pts min.). @ - First EKG completed at 1939 demonstrates sinus rhythm with rate of 78. NH inte rval 181. QRS 95. QTc of 402. No acute ST segment elevations or depressions Second EKG completed at 2215 demonstrates sinus rhythm with a rate of 87. NH interval 160. QRS 88. QTc of 394. No acute ST segment elevations or depressions X-rays interpreted by me (1pt min.). @ -None done CT interpreted by me (1pt min.). @ -Yes which demonstrates no acute intracranial process U/S interpreted by me (1pt. min.). @ -None done What testing was considered but not performed or refused? (CT, X-rays, U/S, labs)? Why? @ -None What meds were considered but not given or refused? Why? @ -None Did you discuss the management of the patient with other professionals (professionals i.e. DrOk, PA, OPHTHALMIC MEDICAL ASSISTANT, lab, RT, psych nurse, social science analyst, health safety coordinator, teacher, aviation tactical readiness officer, welfare case worker)? Give summary @ -Spoke with Dr. Elizabeth for the admission Was smoking cessation discussed for >3mins.? @ -No Was critical care preformed (if so, how long)? @ -No Were there social determinants of health that impacted care today? How? (Homelessness, low income, unemployed, alcoholism, drug addiction, transportation, low edu. Level, literacy, decrease access to med. care, skilled nursing, rehab)? @ -No Was there de-escalation of care discussed even if they declined (Discuss DNR or withdrawal of care, Hospice)? DNR status @ -No What co-morbidities impacted this encounter? (DM, HTN, Smoking, COPD, CAD, Cancer, CVA, ARF, Chemo, Hep., AIDS, mental health diagnosis, sleep apnea, morbid obesity)? @ -Seizure disorder Was patient admitted / discharged? Hospital course, mention meds given and route, prescriptions, significant lab abnormalities, going to OR and other pertinent info. @ -Upon arrival patient seen and evaluated in bed 9. Thorough history and physical exam was performed. Patient unsure if he hit his head and therefore CT was performed. Laboratory studies are conducted. I did reevaluate the patient. Upon reevaluation he is complaining of chest pain. Troponin is ordered and twelve-lead EKG is performed. Patient admits that he had an outpatient stress test which was abnormal. Because of this report I did discuss the care with the patient. He will be admitted for serial troponins and cardiology consultation. Patient was agreeable to this. patient was admitted in stable condition Undiagnosed new problem with uncertain prognosis? @ -No Drug Therapy requiring intensive monitoring for toxicity (Heparin, Nitro, Insulin, Cardizem)? @ -No Were any procedures done? @ -No Diagnosis/symptom? @ -Acute breakthrough seizure, history of seizure disorder, acute chest pain Acute, or Chronic, or Acute on Chronic? @ -Acute Uncomplicated (without systemic symptoms) or Complicated (systemic symptoms)? @ -Complicated Side effects of treatment? @ -No Exacerbation, Progression, or Severe Exacerbation? @ -No Poses a threat to life or bodily function? How? (Chest pain, [place], [place], pneumonia, PE, COPD, DKA, ARF, appy, cholecystitis, CVA, Diverticulitis, Homicidal, Suicidal, threat to staff... and all critical care pts) @ -No - Lab Data Result diagrams: 05/26/24 05:39 05/26/24 05:39 Lab Results 05/24/24 05/24/24 05/24/24 Range/Units 21:14 21:14 21:14 WBC 6.4 (3.8-10.6) k/uL RBC 4.64 (4.30-5.90) m/uL Hgb 14.8 (13.0-17.5) gm/dL Hct 42.7 (39.0-53.0) % MCV 92.0 (80.0-100.0) fL MCH 31.9 (25.0-35.0) pg MCHC 34.6 (31.0-37.0) g/dL RDW 13.9 (11.5-15.5) % Plt Count 224 (150-450) k/uL MPV 7.9 Neutrophils % 66 % Lymphocytes % 23 % Monocytes % 7 % Eosinophils % 1 % Basophils % 0 % Neutrophils # 4.2 (1.3-7.7) k/uL Lymphocytes # 1.4 (1.0-4.8) k/uL Monocytes # 0.5 (0-1.0) k/uL Eosinophils # 0.0 (0-0.7) k/uL Basophils # 0.0 (0-0.2) k/uL Sodium 134 L (137-145) mmol/L Potassium 4.1 (3.5-5.1) mmol/L Chloride 99 (98-107) mmol/L Carbon Dioxide 25 (22-30) mmol/L Anion Gap 10 mmol/L BUN 12 (9-20) mg/dL Creatinine 0.87 (0.66-1.25) mg/dL Est GFR (CKD-EPI)AfAm >90 (>60 ml/min/1.73 sqM) Est GFR (CKD-EPI)NonAf >90 (>60 ml/min/1.73 sqM) Glucose 100 H (74-99) mg/dL Calcium 9.2 (8.4-10.2) mg/dL Magnesium 1.8 (1.6-2.3) mg/dL Total Bilirubin 0.4 (0.2-1.3) mg/dL AST 38 (17-59) U/L ALT 29 (4-49) U/L Alkaline Phosphatase 72 (38-126) U/L Troponin I (0.000-0.034) ng/mL Total Protein 7.0 (6.3-8.2) g/dL Albumin 4.2 (3.5-5.0) g/dL Urine Color Urine Appearance (Clear) Urine pH (5.0-8.0) Ur Specific [place] (1.001-1.035) Urine Protein (Negative) Urine Glucose (UA) (Negative) Urine Ketones (Negative) Urine Blood (Negative) Urine Nitrite (Negative) Urine Bilirubin (Negative) Urine Urobilinogen (<2.0) mg/dL Ur Leukocyte Esterase (Negative) Valproic Acid 64.6 ug/mL Carbamazepine 7.9 (4.0-12.0) UG/ML Lamotrigine 3.2 (2.0-15.0) ug/mL Serum Alcohol <10 mg/dL 05/24/24 05/24/24 Range/Units 21:23 22:27 WBC (3.8-10.6) k/uL RBC (4.30-5.90) m/uL Hgb (13.0-17.5) gm/dL Hct (39.0-53.0) % MCV (80.0-100.0) fL MCH (25.0-35.0) pg MCHC (31.0-37.0) g/dL RDW (11.5-15.5) % Plt Count (150-450) k/uL MPV Neutrophils % % Lymphocytes % % Monocytes % % Eosinophils % % Basophils % % Neutrophils # (1.3-7.7) k/uL Lymphocytes # (1.0-4.8) k/uL Monocytes # (0-1.0) k/uL Eosinophils # (0-0.7) k/uL Basophils # (0-0.2) k/uL Sodium (137-145) mmol/L Potassium (3.5-5.1) mmol/L Chloride (98-107) mmol/L Carbon Dioxide (22-30) mmol/L Anion Gap mmol/L BUN (9-20) mg/dL Creatinine (0.66-1.25) mg/dL Est GFR (CKD-EPI)AfAm (>60 ml/min/1.73 sqM) Est GFR (CKD-EPI)NonAf (>60 ml/min/1.73 sqM) Glucose (74-99) mg/dL Calcium (8.4-10.2) mg/dL Magnesium (1.6-2.3) mg/dL Total Bilirubin (0.2-1.3) mg/dL AST (17-59) U/L ALT (4-49) U/L Alkaline Phosphatase (38-126) U/L Troponin I 0.020 (0.000-0.034) ng/mL Total Protein (6.3-8.2) g/dL Albumin (3.5-5.0) g/dL Urine Color Colorless Urine Appearance Clear (Clear) Urine pH 7.0 (5.0-8.0) Ur Specific [place] 1.011 (1.001-1.035) Urine Protein Negative (Negative) Urine Glucose (UA) Negative (Negative) Urine Ketones Negative (Negative) Urine Blood Negative (Negative) Urine Nitrite Negative (Negative) Urine Bilirubin Negative (Negative) Urine Urobilinogen <2.0 (<2.0) mg/dL Ur Leukocyte Esterase Negative (Negative) Valproic Acid ug/mL Carbamazepine (4.0-12.0) UG/ML Lamotrigine (2.0-15.0) ug/mL Serum Alcohol mg/dL Disposition Clinical Impression: Chest pain, Seizure disorder, Breakthrough seizure Disposition: ADMITTED IP TO THIS [facility] Condition: Stable Is patient prescribed a controlled substance at d/c from ED?: No Time of Disposition: 23:50 Decision to Admit Reason: Admit from EC Decision Date: 05/24/24 Decision Time: 23:50
[2024-05-24] MEDS ORDERED: NALOXONE 0.4 MG/ML 1 ML VIAL IV PRN (23:50)
[2024-05-25] MEDS: ASPIRIN 81 MG PO STA (00:17)
[2024-05-25] MEDS ORDERED: LOPERAMIDE 2 MG CAP PO PRN (00:22)
[2024-05-25] MEDS ORDERED: ACETAMINOPHEN TAB 325 MG TAB PO PRN (00:22)
[2024-05-25] MEDS: NON FORMULARY DRUG (Brivaracetam [Briviact] 100 MG Tablet) PO SCH (00:53)
[2024-05-25] MEDS: LATANOPROST 0.005% OPHTH DROPS 2.5 ML BTL BOTH EYES SCH (00:54)
[2024-05-25] MEDS: NON FORMULARY DRUG (Brivaracetam [Briviact] 50 MG Tablet) PO SCH (00:54)
[2024-05-25] MEDS: ATORVASTATIN 80 MG TAB PO SCH (01:05)
[2024-05-25] MEDS: DIVALPROEX ER 500 MG TAB.ER.24H PO SCH (01:05)
[2024-05-25] MEDS: lamoTRIgine 100 MG TAB PO SCH (01:06)
[2024-05-25] MEDS: amLODIPine 2.5 MG TAB PO SCH (01:06)
[2024-05-25 02:48] LABS: Carbamazepine (Tegretol) 7.9 UG/ML (4.0-12.0)
[2024-05-25 04:50] LABS: African American GFR (CKD) >90 (>60 ml/min/1.73 sqM); Anion Gap 10 mmol/L; Blood Urea Nitrogen 14 mg/dL (9-20); Calcium 9.1 mg/dL (8.4-10.2); Carbon Dioxide 28 mmol/L (22-30); Chloride 97 mmol/L (98-107); Glucose 91 mg/dL (74-99); Non-African American GFR(CKD) >90 (>60 ml/min/1.73 sqM); Potassium 4.1 mmol/L (3.5-5.1); Sodium 135 mmol/L (137-145)
[2024-05-25 04:56] LABS: Basophils % (A) 0 %; Eosinophils % (A) 0 %; HCT 41.6 % (39.0-53.0); HGB 13.8 gm/dL (13.0-17.5); Lymphocytes # (A) 2.5 k/uL (1.0-4.8); Lymphocytes % (A) 32 %; MCH 30.7 pg (25.0-35.0); MCHC 33.2 g/dL (31.0-37.0); MCV 92.4 fL (80.0-100.0); Mean Platelet Volume 7.9; Monocytes # (A) 0.8 k/uL (0-1.0); Monocytes % (A) 10 %; Neutrophils # (A) 4.3 k/uL (1.3-7.7); Neutrophils % (A) 54 %; Platelet Count 223 k/uL (150-450); RDW 13.8 % (11.5-15.5)
--- NOTE | 2024-05-25 05:46 | P.HPIM ---
History of Present Illness H&P Date: 05/24/24 Patient is a 59-year-old male with past medical history significant for seizures, CVA/TIA, hypertension, history of CT, hyperlipidemia presents emergency department today after having an unwitnessed seizure. He was out shopping when he was found unresponsive on the floor. He states that his last s eizure was about 1 month ago. He does not remember the events surrounding today's seizure and is unsure if he hit his head. He is on anticoagulation with Plavix. He denies any missed doses of his seizure medication. He reports chest pain and states that he had an abnormal stress test a few weeks ago. He describes the chest pain as substernal, 08/12 but was a 7/10 initially. He reports dyspnea on exertion that worsened over this past weekend. He denies headache/lightheadedness/dizziness, nausea/vomiting. Initial vitals: BP 127/88, ND 94 bpm, 98% on room air, 97.5 F Initial labs: Valproic acid 64.6therapeutic, troponin x 1 < 0.02 Initial EKG: Normal sinus rhythm with ventricular rate of 78 bpm, QTc 402 ms, no ST segment changes Initial head/cervical CT: No acute intracranial process, stable appearance right sided stimulator lead ED documentation reviewed. Given aspirin 324 mg x 1 Review of Systems Pertinent positives and negatives as discussed in HPI, a complete review of systems was performed and all other systems are negative. Past Medical History Past Medical History: CVA/TIA, Hyperlipidemia, Hypertension, Memory Impairment, Myocardial Infarction ([place]), Seizure Disorder, Sleep Apnea/CPAP/BIPAP Additional Past Medical History / Comment(s): no CPAP, has vagus nerve stimulator, hx migraines, epilepsy-last seizure 05/24/23, previous TIA-no residual Last Myocardial Infarction Date:: 2015 History of Any Multi-Drug Resistant Organisms: None Reported Past Surgical History: Adenoidectomy, Ear Surgery, Heart Catheterization, Tonsillectomy Additional Past Surgical History / Comment(s): TUBES IN EARS, VAGUS NERVE STIMULATOR IMPLANT, responsive neuro stimulator placed 2021 Past Anesthesia/Blood Transfusion Reactions: Previous Problems w/ Anesthesia Additional Past Anesthesia/Blood Transfusion Reaction / Comment(s): STATES A LO NG TIME TO WAKE UP AFTER ANESTHESIA. Past Psychological History: No Psychological Hx Reported Smoking Status: Never smoker Past Alcohol Use History: None Reported Past Drug Use History: None Reported - Past Family History Brother(s) Family Medical History: Cancer Additional Family Medical History / Comment(s): prostate CA with mets Medications and Allergies Home Medications Medication Instructions Recorded Confirmed Type Clopidogrel [Plavix] 75 mg PO DAILY 03/16/17 05/24/24 History Divalproex ER [Depakote ER] 1,000 mg PO BID 05/26/18 05/24/24 History Multivitamins, Thera [Multivitamin 1 tab PO DAILY@1400 05/26/18 05/24/24 History (formulary)] Niacin (Inositol Niacinate) 500 mg PO DAILY@1400 05/26/18 05/24/24 History [Niacin 500 mg Capsule] Atorvastatin Calcium [Lipitor] 80 mg PO HS 10/30/19 05/24/24 History Folic Acid 0.8 mg PO DAILY@1400 10/30/19 05/24/24 History amLODIPine [Norvasc] 2.5 mg PO HS 10/30/19 05/24/24 History Cholecalciferol [Vitamin D3 (125 125 mcg PO DAILY@1400 07/12/21 05/24/24 History Mcg = 5000 Iu)] Ezetimibe [Zetia] 10 mg PO DAILY 07/12/21 05/24/24 History Thiamine [Vitamin B-1] 100 mg PO DAILY@1400 07/12/21 05/24/24 History carBAMazepine 100 mg PO DAILY 07/12/21 05/24/24 History carBAMazepine 200 mg PO BID@1200,2000 07/12/21 05/24/24 History rOPINIRole HCL [Requip] 1 mg PO BID 09/23/21 05/24/24 History lamoTRIgine [LaMICtal] 100 mg PO BID 01/31/23 05/24/24 History Bimatoprost [Lumigan 0.01% Ophth 1 drop BOTH EYES HS 01/05/24 05/24/24 History Soln] Acetaminophen Tab [Tylenol] 325 mg PO Q6H PRN 02/28/24 05/24/24 History Loperamide [Imodium] 2 mg PO QID PRN #40 cap 03/01/24 05/24/24 Rx Brivaracetam [Briviact] 50 mg PO BID 05/24/24 05/24/24 History Brivaracetam [Briviact] 100 mg PO BID 05/24/24 05/24/24 History Allergies Allergy/AdvReac Type Severity Reaction Status Date / Time No Known Allergies Allergy Verified 05/24/24 21:05 Physical Exam Vitals: Vital Signs Temp Pulse Resp BP Pulse Ox 05/24/24 23:02 86 20 157/99 97 05/24/24 22:00 90 18 162/87 97 05/24/24 19:12 97.5 F L 94 18 177/88 98 Intake and Output 05/24/24 05/24/24 05/25/24 14:59 22:59 06:59 Other: Weight 113.398 kg Vital signs reviewed General: Nontoxic, no distress, appears stated age, well-appearing Derm: Warm, dry, intact, no cyanosis Head: Atraumatic, normocephalic, symmetric Eyes: EOMI, anicteric sclera, PERRL Ears: Normal appearing, no external lesions, hearing intact Nose: Normal appearing, no external lesions Mouth: No lip lesion, mucus membranes moist, no tonsilar hypertrophy or exudate Neck: Supple, without lesions, trachea midline Cardiovascular: S1-S2 regular, no murmur, no pedal edema Lungs: CTA bilateral, no wheezes, no rhonchi, no rales, no accessory muscle use Abdominal: Soft, epigastric tenderness, bowel sounds present Extremities: Muscle strength 5/5 in all extremities, radial pulses 2+ bilateral, posterior tibial pulses 2+ bilateral Neuro: Alert, oriented x 4, gross neurological examination did not reveal any focal deficits. Cranial nerves II to XII grossly intact. Psych: Appropriate affect and mood Results CBC & Chem 7: 05/25/24 04:07 05/25/24 04:07 Labs: Abnormal Lab Results - Last 24 Hours (Table) 05/24/24 Range/Units 21:14 Sodium 134 L (137-145) mmol/L Glucose 100 H (74-99) mg/dL Thrombosis Risk Factor Assmnt - DVT/VTE Prophylaxis DVT/VTE Prophylaxis: Pharmacologic Prophylaxis ordered - Choose All That Apply Each Factor Represents 1 point: Age 41-60 years, Obesity (BMI >25) Thrombosis Risk Factor Assessment Total Risk Factor Score: 2 Thrombosis Risk Factor Assessment Level: Low Risk Assessment and Plan Assessment: Patient is a 59-year-old male with past medical history significant for seizures, CVA/TIA, hypertension, history of CT, hyperlipidemia admitted for chest pain. Plan: Active #. Chest pain, rule out ACS EKG: Normal sinus rhythm ventricular rate of 78 bpm, QTc 402 ms, no ST segment changes Troponin x 1 0.020 Echo February 2024 shows EF 5560%, normal LV size, mild aortic stenosis Monitor vital signs Monitor CBC Monitor CMP Continue telemetry monitoring Serial troponin Obtain lipid panel Obtain HbA1c level Nitro for chest pain as needed Cardiology consulted #. Epilepsy, last seizure 05/24/2024 CT head neck: No acute intracranial process, stable appearance right sided stimulator lead Valproic acid 64.6therapeutic Carbamazepine 7.9therapeutic Continue home medications Seizure precautions Chronic #. History of CT #. Hypertension #. Hyperlipidemia Continue home medications DVT prophylaxis: Lovenox 40 mg subcutaneous daily The patient is admitted with an anticipated less than 2 midnight stay for evaluation of chest pain. CODE STATUS: Full Code Anticipated discharge place: Pending clinical course I have seen and evaluated the patient today. I Discussed the case with the resident and agree with the resident's findings I edited the assessment and plan as necessary as documented in the resident's note.
[2024-05-25] MEDS: ASPIRIN 81 MG PO SCH (08:24)
[2024-05-25] MEDS: carBAMazepine 200 MG TAB PO SCH ×2 (08:24→14:05)
[2024-05-25] MEDS: CLOPIDOGREL 75 MG TAB PO SCH (08:25)
[2024-05-25] MEDS: hydroCHLOROthiazide 25 MG TAB PO SCH (08:25)
[2024-05-25] MEDS: ENOXAPARIN 40 MG/0.4 ML SYRINGE SQ SCH (08:26)
[2024-05-25] MEDS: EZETIMIBE 10 MG TAB PO SCH (08:26)
[2024-05-25] MEDS: FAMOTIDINE 20 MG TAB PO SCH (08:26)
--- NOTE | 2024-05-25 11:51 | P.PN ---
Subjective Progress Note Date: 05/25/24 59-year-old male with past medical history significant for seizures, CVA/TIA, hypertension, history of GA, hyperlipidemia presents emergency department today after having an unwitnessed seizure. He was out shopping when he was found unresponsive on the floor. He states that his last seizure was about 1 month ago. He does not remember the events surrounding today's seizure and is unsure if he hit his head. He is on anticoagulation with Plavix. He denies any missed doses of his seizure medication. He reports chest pain and states that he had an abnormal stress test a few weeks ago. He describes the chest pain as substernal, 5/10 but was a 7/10 initially. He reports dyspnea on exertion that worsened over this past weekend. He denies headache/lightheadedness/dizziness, nausea/vomiting. 05/25/24 - Patient seen and examined at bedside this morning, remaining in the ED. No acute events overnight. His is bringing some of his antiseizure medications from home that are not formulary at the hospital, for them to be resumed. He states he is feeling well and has no acute complaints at this time. REVIEW OF SYSTEMS: Pertinent positives and negatives noted in HPI. Physical Exam: General: Nontoxic, no distress, appears stated age, well-appearing Derm: Warm, dry, intact, no cyanosis Head: Atraumatic, normocephalic, symmetric Eyes: EOMI, anicteric sclera, PERRL Ears: Normal appearing, no external lesions, hearing intact Nose: Normal appearing, no external lesions Mouth: No lip lesion, mucus membranes moist, no tonsilar hypertrophy or exudate Neck: Supple, without lesions, trachea midline Cardiovascular: S1-S2 regular, no murmur, no pedal edema Lungs: CTA bilateral, no wheezes, no rhonchi, no rales, no accessory muscle use Abdominal: Soft, epigastric tenderness, bowel sounds present Extremities: Muscle strength 5/5 in all extremities, radial pulses 2+ bilateral, posterior tibial pulses 2+ bilateral Neuro: Alert, oriented x 4, gross neurological examination did not reveal any focal deficits. Cranial nerves II to XII grossly intact. Psych: Appropriate affect and mood Data Received Today: Labs: WBC 8.0, hemoglobin 13.8, hematocrit 41.6, platelet 22.3; sodium 134, potassium 4.1, bicarb 28, BUN 14, creatinine 0.9, calcium 9.1 Imagining: No new imaging today Assessment and plan Patient is a 59-year-old male with past medical history significant for seizures, CVA/TIA, hypertension, history of GA, hyperlipidemia admitted for chest pain. #Chest pain, rule out ACS -EKG: Normal sinus rhythm ventricular rate of 78 bpm, QTc 402 ms, no ST segment changes -Troponin trend: 0.020 => 0.020 => 0.024 -Echo February 2024 shows EF 5560%, normal LV size, mild aortic stenosis; no repeat echocardiogram needed -Lipid panel and hemoglobin A1c pending -Continue to monitor vital signs, CBC and CMP -Continue telemetry monitoring -Nitro for chest pain as needed -Cardiology consulted #Epilepsy, last seizure 05/24/2024 -CT head neck: No acute intracranial process, stable appearance right sided stimulator lead -Valproic acid 64.6therapeutic -Carbamazepine 7.9therapeutic -Continue home medications -Seizure precautions -Neurology consulted Chronic #History of GA #Hypertension #Hyperlipidemia -Continue home medications DVT ppx: Lovenox 40 mg subcu daily Code status: Full code F: None E: Replete as needed N: Heart healthy diet A: Ambulatory Anticipated discharge place: Pending clinical course Anticipated discharge time: Pending clinical course Dictation was produced using [employer] dictation software. please excuse any grammatical, word or spelling errors. I have seen and evaluated the patient today. Discussed with the resident and agree with the residents finding and plan as documented in the resident's note. Changes highlighted in blue font. Objective - Vital Signs Vital signs: Vital Signs Temp 97.5 F L 05/24/24 19:12 Pulse 66 05/25/24 06:00 Resp 18 05/25/24 06:00 BP 166/98 05/25/24 06:00 Pulse Ox 97 05/25/24 06:00 FiO2 Intake & Output 05/24/24 05/25/24 05/25/24 18:59 06:59 18:59 Weight 113.398 kg - Labs CBC & Chem 7: 05/25/24 04:07 05/25/24 04:07 Labs: Abnormal Lab Results - Last 24 Hours (Table) 05/24/24 05/25/24 Range/Units 21:14 04:07 Sodium 134 L 135 L (137-145) mmol/L Chloride 97 L (98-107) mmol/L Glucose 100 H (74-99) mg/dL
--- NOTE | 2024-05-25 13:54 | P.CRDCN ---
History of Present Illness Consult date: 05/25/24 Consult reason: chest pain History of present illness: This is a 59-year-old male patient of Dr. Doyle with past medical history of hypertension, dyslipidemia, valvular heart disease, TIA, carotid atherosclerosis, history of seizures, history of adrenal mass. We have been asked to evaluate the patient for chest pain. Patient apparently had episode of chest pain that was occurring after he had a breakthrough seizure at home. He also had some difficulty in breathing that has been ongoing especially with activity. He states his chest pain right now is at a 5-6. Blood pressure readings are all elevated. Blood pressure 166/98, heart rate 66, pulse ox 97% on room air. -EKG: Sinus rhythm with ventricular rate of [address]-T wave changes. -CT brain and cervical spine: No acute intracranial process. No acute osseous abnormality in the cervical spine. Degenerative disc changes. -Laboratory studies: CBC within normal limits. Sodium 135, potassium 4.1, creatinine 0.89. Troponin negative x 3 draws. -Home cardiac medications: Amlodipine 2.5 mg at bedtime, atorvastatin 80 mg at bedtime, Plavix 75 mg daily, Zetia 10 mg daily. -Echocardiogram performed in the office on 03/10/2024 revealed EF 50%, mild aortic regurgitation, mild to moderate aortic stenosis. Ascending aorta is enlarged. Mild mitral regurgitation. Mild tricuspid regurgitation. Normal pulmonary artery systolic pressure. -Cardiac catheterization performed 10/07/2021 revealed normal coronaries. Elevated left-sided filling pressure. -Lexiscan stress test performed 03/15/2024 revealed small inferior lateral ischemia. Review Of Systems: At the time of my exam: CONSTITUTIONAL: Denies fever or chills. HEENT: Denies blurred vision, vision changes, or eye pain. Denies hemoptysis CARDIOVASCULAR: Denies chest pain. Denies orthopnea. Denies PND. Denies pal pitations RESPIRATORY: Denies shortness of breath. GASTROINTESTINAL: Denies abdominal pain. Denies nausea or vomiting. HEMATOLOGIC: Denies bleeding disorders. GENITOURINARY: Denies any blood in urine. SKIN: Denies puritis. Denies rash. Physical examination: Gen: This is a 59-year-old male resting in bed in no acute distress. VS: reviewed HEENT: Head is atraumatic, normocephalic. Pupils equal, round. Sclerae is anicteric. NECK: Supple. No JVD. LUNGS: Clear to auscultation. No wheezes or rhonchi. No intercostal retractions. HEART: Regular rate and rhythm. Systolic murmur. ABDOMEN: Soft No tenderness. EXTREMITIES: No pedal edema. No calf tenderness. NEUROLOGICAL: Patient is awake, alert and oriented x3. Assessment: Breakthrough seizure Atypical chest pain, acute coronary syndrome ruled out Uncontrolled hypertension Dyslipidemia Mild to moderate aortic stenosis, mild mitral regurgitation, mild tricuspid regurgitation TIA Carotid atherosclerosis History of adrenal mass Plan: Resume patient's home cardiac medications Increase Norvasc to 5 mg daily Add hydrochlorothiazide 25 mg daily No need to obtain echocardiogram Monitor blood pressure closely Further recommendations to follow based upon clinical course Thank you kindly for this consultation. Nurse practitioner note has been reviewed, I agree with documented findings and plan of care. Patient was seen and examined. Past Medical History Past Medical History: CVA/TIA, Hyperlipidemia, Hypertension, Memory Impairment, Myocardial Infarction (ID), Seizure Disorder, Sleep Apnea/CPAP/BIPAP Additional Past Medical History / Comment(s): no CPAP, has vagus nerve stimulator, hx migraines, epilepsy-last seizure 05/24/23, previous TIA-no residual Last Myocardial Infarction Date:: 2015 History of Any Multi-Drug Resistant Organisms: None Reported Past Surgical History: Adenoidectomy, Ear Surgery, Heart Catheterization, Tonsillectomy Additional Past Surgical History / Comment(s): TUBES IN EARS, VAGUS NERVE STIMULATOR IMPLANT, responsive neuro stimulator placed 2021 Past Anesthesia/Blood Transfusion Reactions: Previous Problems w/ Anesthesia Additional Past Anesthesia/Blood Transfusion Reaction / Comment(s): STATES A LONG TIME TO WAKE UP AFTER ANESTHESIA. Past Psychological History: No Psychological Hx Reported Smoking Status: Never smoker Past Alcohol Use History: None Reported Past Drug Use History: None Reported - Past Family History Brother(s) Family Medical History: Cancer Additional Family Medical History / Comment(s): prostate CA with mets Medications and Allergies Home Medications Medication Instructions Recorded Confirmed Type Clopidogrel [Plavix] 75 mg PO DAILY 03/16/17 05/24/24 History Divalproex ER [Depakote ER] 1,000 mg PO BID 05/26/18 05/24/24 History Multivitamins, Thera [Multivitamin 1 tab PO DAILY@1400 05/26/18 05/24/24 History (formulary)] Niacin (Inositol Niacinate) 500 mg PO DAILY@139905/26/18 05/24/24 History [Niacin 500 mg Capsule] Atorvastatin Calcium [Lipitor] 80 mg PO HS 10/30/19 05/24/24 History Folic Acid 0.8 mg PO DAILY@139910/30/19 05/24/24 History amLODIPine [Norvasc] 2.5 mg PO HS 10/30/19 05/24/24 History Cholecalciferol [Vitamin D3 (125 125 mcg PO DAILY@139907/12/21 05/24/24 History Mcg = 5000 Iu)] Ezetimibe [Zetia] 10 mg PO DAILY 07/12/21 05/24/24 History Thiamine [Vitamin B-1] 100 mg PO DAILY@139907/12/21 05/24/24 History carBAMazepine 100 mg PO DAILY 07/12/21 05/24/24 History carBAMazepine 200 mg PO BID@1399,199907/12/21 05/25/24 History rOPINIRole HCL [Requip] 1 mg PO BID 09/23/21 05/24/24 History lamoTRIgine [LaMICtal] 100 mg PO BID 01/31/23 05/24/24 History Bimatoprost [Lumigan 0.01% Ophth 1 drop BOTH EYES HS 01/05/24 05/24/24 History Soln] Acetaminophen Tab [Tylenol] 325 mg PO Q6H PRN 02/28/24 05/24/24 History Loperamide [Imodium] 2 mg PO QID PRN #40 cap 03/01/24 05/24/24 Rx Brivaracetam [Briviact] 50 mg PO BID 05/24/24 05/24/24 History Brivaracetam [Briviact] 100 mg PO BID 05/24/24 05/24/24 History Allergies Allergy/AdvReac Type Severity Reaction Status Date / Time No Known Allergies Allergy Verified 05/24/24 21:05 Physical Exam Vitals: Vital Signs Temp Pulse Resp BP Pulse Ox 05/25/24 11:00 98.3 F 70 16 126/93 98 05/25/24 06:00 66 18 166/98 97 05/24/24 23:02 86 20 157/99 97 05/24/24 22:00 90 18 162/87 97 05/24/24 19:12 97.5 F L 94 18 177/88 98 Intake and Output 05/24/24 05/25/24 05/25/24 22:59 06:59 14:59 Other: Weight 113.398 kg Results 05/25/24 04:07 05/25/24 04:07 Cardiac Enzymes 05/24/24 05/24/24 05/25/24 Range/Units 21:14 22:27 00:56 AST 38 (17-59) U/L Troponin I 0.020 0.020 (0.000-0.034) ng/mL 05/25/24 Range/Units 04:07 AST (17-59) U/L Troponin I 0.024 (0.000-0.034) ng/mL CBC 05/24/24 05/25/24 Range/Units 21:14 04:07 WBC 6.4 8.0 (3.8-10.6) k/uL RBC 4.64 4.50 (4.30-5.90) m/uL Hgb 14.8 13.8 (13.0-17.5) gm/dL Hct 42.7 41.6 (39.0-53.0) % Plt Count 224 223 (150-450) k/uL Comprehensive Metabolic Panel 05/24/24 05/25/24 Range/Units 21:14 04:07 Sodium 134 L 135 L (137-145) mmol/L Potassium 4.1 4.1 (3.5-5.1) mmol/L Chloride 99 97 L (98-107) mmol/L Carbon Dioxide 25 28 (22-30) mmol/L BUN 12 14 (9-20) mg/dL Creatinine 0.87 0.89 (0.66-1.25) mg/dL Glucose 100 H 91 (74-99) mg/dL Calcium 9.2 9.1 (8.4-10.2) mg/dL AST 38 (17-59) U/L ALT 29 (4-49) U/L Alkaline Phosphatase 72 (38-126) U/L Total Protein 7.0 (6.3-8.2) g/dL Albumin 4.2 (3.5-5.0) g/dL Current Medications Generic Name Dose Route Start Last Admin Trade Name Freq PRN Reason Stop Dose Admin Acetaminophen 325 mg 05/25/24 00:22 Acetaminophen Tab 325 Mg Tab PO Q6H PRN Fever and/ or Pain Amlodipine Besylate 5 mg 05/25/24 21:00 Amlodipine 5 Mg Tab PO HS [facility] Aspirin 81 mg 05/25/24 09:00 05/25/24 08:24 Aspirin 81 Mg PO 81 mg DAILY [facility] Administration Atorvastatin Calcium 80 mg 05/25/24 00:30 05/25/24 01:05 Atorvastatin 80 Mg Tab PO 80 mg HS [facility] Administration Carbamazepine 100 mg 05/25/24 09:00 05/25/24 08:24 Carbamazepine 200 Mg Tab PO 100 mg DAILY [facility] Administration Carbamazepine 200 mg 05/25/24 12:00 Carbamazepine 200 Mg Tab PO BID@1200,2000 [facility] Cholecalciferol 125 mcg 05/25/24 14:00 Cholecalciferol 125 Mcg (5000 Iu) Tablet PO DAILY@1400 [facility] Clopidogrel Bisulfate 75 mg 05/25/24 09:00 05/25/24 08:25 Clopidogrel 75 Mg Tab PO 75 mg DAILY [facility] Administration Divalproex Sodium 1,000 mg 05/25/24 00:30 05/25/24 08:25 Divalproex Er 500 Mg Tab.Er.24h PO 1,000 mg BID [facility] Administration Ezetimibe 10 mg 05/25/24 09:00 05/25/24 08:26 Ezetimibe 10 Mg Tab PO 10 mg DAILY [facility] Administration Enoxaparin Sodium 40 mg 05/25/24 09:00 05/25/24 08:26 Enoxaparin 40 Mg/0.4 Ml Syringe SQ 40 mg BID [facility] Administration Famotidine 20 mg 05/25/24 09:00 05/25/24 08:26 Famotidine 20 Mg Tab PO 20 mg BID [facility] Administration Folic Acid 1 mg 05/25/24 14:00 Folic Acid 1 Mg Tab PO DAILY@1400 [facility] Hydrochlorothiazide 25 mg 05/25/24 09:00 05/25/24 08:25 Hydrochlorothiazide 25 Mg Tab PO 25 mg DAILY [facility] Administration Lamotrigine 100 mg 05/25/24 00:30 05/25/24 08:25 Lamotrigine 100 Mg Tab PO 100 mg BID [facility] Administration Latanoprost 1 drops 05/25/24 00:30 05/25/24 00:54 Latanoprost 0.005% Ophth Drops 2.5 Ml Btl BOTH EYES Not Given HS [facility] Loperamide HCl 2 mg 05/25/24 00:22 Loperamide 2 Mg Cap PO QID PRN Diarrhea Multivitamins 1 each 05/25/24 14:00 Multivitamins, Thera 1 Each Tab PO DAILY@1400 [facility] Naloxone HCl 0.2 mg 05/24/24 23:50 Naloxone 0.4 Mg/Ml 1 Ml Vial IV Q2M PRN Opioid Reversal Niacin 500 mg 05/25/24 14:00 Niacin Tr 500 Mg Caplet PO DAILY@1400 [facility] Non-Formulary Medication 50 mg 05/25/24 00:55 Brivaracetam [Briviact] PO BID [facility] Non-Formulary Medication 100 mg 05/25/24 00:56 Brivaracetam [Briviact] PO BID [facility] Ropinirole HCl 1 mg 05/25/24 00:30 05/25/24 08:25 Ropinirole Hcl 1 Mg Tab PO 1 mg BID [facility] Administration Thiamine HCl 100 mg 05/25/24 14:00 Thiamine 100 Mg Tab PO DAILY@1400 [facility] Intake and Output 05/24/24 05/25/24 05/25/24 22:59 06:59 14:59 Other: Weight 113.398 kg 05/25/24 04:07 05/25/24 04:07
[2024-05-25] MEDS ORDERED: NIACIN TR 500 MG CAPLET PO SCH (14:00)
[2024-05-25] MEDS: CHOLECALCIFEROL 125 MCG (5000 IU) TABLET PO SCH (14:05)
[2024-05-25] MEDS: FOLIC ACID 1 MG TAB PO SCH (14:05)
[2024-05-25] MEDS: MULTIVITAMINS, THERA 1 EACH TAB PO SCH (14:06)
[2024-05-25] MEDS: THIAMINE 100 MG TAB PO SCH (14:06)
[2024-05-25] MEDS: NIACIN 500 MG PO SCH (15:22)
[2024-05-25] MEDS: lamoTRIgine 25 MG TAB PO SCH (17:16)
[2024-05-25] MEDS: amLODIPine 5 MG TAB PO SCH (20:25)
--- NOTE | 2024-05-26 00:12 | P.CNNES ---
History of Present Illness Consult date: 05/25/24 Requesting physician: Brandi Molina Reason for Consult: breakthrough seizure History of Present Illness: Patient is a 59-year-old male with history of medically intractable epilepsy, used to follow with Dr. Grigsby, who has left the practice, came to the hospital by ambulance yesterday at 7:09 PM for breakthrough seizure. As per EMS flow sheet, when they arrived at the [facility], they were directed to the patient who had an unwitnessed seizure. Patient notes last seizure was one month prior. Patient was placed in the cervical collar due to unwitnessed seizure. Patient was alert, answering questions appropriately and denied any chest pain shortness of breath abdominal pain. Patient's vitals at the scene was blood pressure 172/104, pulse rate 90 respirations 16 and saturation 98%, blood sugar 152. Patient after the seizure started having chest pain. Patient has been seen by Dr. Doyle. Patient denies missing any doses of his seizure medication. Denies any nausea vomiting, diarrhea or any sickness. Patient's vitals are stable. Blood test shows normal CBC, sodium 134, normal electrolytes, renal and hepatic panel. Troponin negative. UA negative. Depakote level 64.6, and did all 7.9, both are therapeutic. Blood alcohol level negative. CT head and cervical spine showed no acute intracranial process. Stable appearance right-sided stimulator lead. CT of the cervical spine showed no acute osseous abnormality cervical spine. Some degenerative disc changes in the cervical spine C5 6. Foraminal narrowing C5 6, C6 7. EKG showed sinus rhythm. Patient's home medications include Plavix 75 mg, Depakote 1000 mg twice daily, Lipitor 80 mg, folic acid 0.8 mg, Zetia, Tegretol 200 mg twice daily at 12 noon and 8 PM and 100 mg morning. Also on Requip 1 mg twice a day, Lamictal 100 mg twice daily, Briviact 100 mg twice daily Protonix and prednisone. This is the same amount of medications he was taking on the last hospital visit, when seen by myself on 01/05/2024. Patient has been seen by myself on 10/12/2023 for breakthrough seizures with, as well as 10/31/2019 when he had presented with similar scenario. Patient was found home unresponsive and he had felt that he likely had a seizure. Patient has mentioned that he has history of seizures since he was age 12. Patient was on Depakote 750 mg every 12 hours (now 1000 mg twice a day), Lamictal 150 mg twice a day (now 100 mg twice a day), Keppra 1500 mg twice a day (which has been discontinued, and now switched to Briviact 100 mg twice daily, and Carbatrol 300 mg twice a day (now patient is on Carbatrol 200 mg twice a day at noon and 8 PM and 100 mg at 8 AM). Patient used to follow up with Dr. Grigsby, however he has left the practice. Patient has no neurologist. Patient has mentioned that his seizures localizes to the right side. Patient gets petit mal seizures. He says that his "stomach gets going", then gets weak feeling. His seizure lasts for a couple minutes. He denies any tongue bite or loss of control of urine. He gets seizures every month or every 1-2 months. Patient also has seen Dr. Montes in [place] and patient underwent magnetoencephalography on 07/22/2021. Patient has a VNS, but feels it does not help. Review of Systems All pertinent positive and negative review of systems pinch in the HPI. Past Medical History Past Medical History: CVA/TIA, Hyperlipidemia, Hypertension, Memory Impairment, Myocardial Infarction ([place]), Seizure Disorder, Sleep Apnea/CPAP/BIPAP Additional Past Medical History / Comment(s): no CPAP, has vagus nerve stimulator, hx migraines, epilepsy-last seizure 05/24/23, previous TIA-no residual Last Myocardial Infarction Date:: 2015 History of Any Multi-Drug Resistant Organisms: None Reported Past Surgical History: Adenoidectomy, Ear Surgery, Heart Catheterization, T onsillectomy Additional Past Surgical History / Comment(s): TUBES IN EARS, VAGUS NERVE STIMULATOR IMPLANT, responsive neuro stimulator placed 2021 Past Anesthesia/Blood Transfusion Reactions: Previous Problems w/ Anesthesia Additional Past Anesthesia/Blood Transfusion Reaction / Comment(s): STATES A LONG TIME TO WAKE UP AFTER ANESTHESIA. Past Psychological History: No Psychological Hx Reported Smoking Status: Never smoker Past Alcohol Use History: None Reported Past Drug Use History: None Reported - Past Family History Brother(s) Family Medical History: Cancer Additional Family Medical History / Comment(s): prostate CA with mets Medications and Allergies Home Medications Medication Instructions Recorded Confirmed Type Clopidogrel [Plavix] 75 mg PO DAILY 03/16/17 05/24/24 History Divalproex ER [Depakote ER] 1,000 mg PO BID 05/26/18 05/24/24 History Multivitamins, Thera [Multivitamin 1 tab PO DAILY@1400 05/26/18 05/24/24 History (formulary)] Niacin (Inositol Niacinate) 500 mg PO DAILY@1400 05/26/18 05/24/24 History [Niacin 500 mg Capsule] Atorvastatin Calcium [Lipitor] 80 mg PO HS 10/30/19 05/24/24 History Folic Acid 0.8 mg PO DAILY@1400 10/30/19 05/24/24 History amLODIPine [Norvasc] 2.5 mg PO HS 10/30/19 05/24/24 History Cholecalciferol [Vitamin D3 (125 125 mcg PO DAILY@1400 07/12/21 05/24/24 History Mcg = 5000 Iu)] Ezetimibe [Zetia] 10 mg PO DAILY 07/12/21 05/24/24 History Thiamine [Vitamin B-1] 100 mg PO DAILY@1400 07/12/21 05/24/24 History carBAMazepine 100 mg PO DAILY 07/12/21 05/24/24 History carBAMazepine 200 mg PO BID@1399,199907/12/21 05/25/24 History rOPINIRole HCL [Requip] 1 mg PO BID 09/23/21 05/24/24 History lamoTRIgine [LaMICtal] 100 mg PO BID 01/31/23 05/24/24 History Bimatoprost [Lumigan 0.01% Ophth 1 drop BOTH EYES HS 01/05/24 05/24/24 History Soln] Acetaminophen Tab [Tylenol] 325 mg PO Q6H PRN 02/28/24 05/24/24 History Loperamide [Imodium] 2 mg PO QID PRN #40 cap 03/01/24 05/24/24 Rx Brivaracetam [Briviact] 50 mg PO BID 05/24/24 05/24/24 History Brivaracetam [Briviact] 100 mg PO BID 05/24/24 05/24/24 History Allergies Allergy/AdvReac Type Severity Reaction Status Date / Time No Known Allergies Allergy Verified 05/24/24 21:05 Physical Examination - Vital Signs Vital Signs: Vital Signs Temp Pulse Resp BP Pulse Ox 05/25/24 11:00 98.3 F 70 16 126/93 98 05/25/24 06:00 66 18 166/98 97 05/24/24 23:02 86 20 157/99 97 05/24/24 22:00 90 18 162/87 97 05/24/24 19:12 97.5 F L 94 18 177/88 98 Patient is a middle-aged male, in no acute distress. Patient has a flat affect. Patient is alert awake oriented to time place and person. He knows it is [facility] imported on [place]. Speech and language functions are norm al. Patient can name and repeat very well. No aphasia or dysarthria. Attention, concentration and fund of knowledge is adequate. Detailed cognitive function testing deferred. On cranial nerve examination, pupils are equal, round and reacting to light, visual kaur are full on confrontation, with no neglect on double simultaneous stimulation. Extraocular muscles are intact with no nystagmus. Face is symmetric, but with active testing, he has slight right-sided asymmetry, tongue protrudes to the midline. Palatal elevation and sensation normal, hearing and shoulder shrug normal, facial sensation normal. No evidence of oral trauma. On muscle strength testing, there is no pronator drift and the strength is normal in arms and legs distally and proximally. Deep tendon reflexes are symmetric trace in the upper limbs, 1+ at the knees and plantars downgoing. Sensory to touch is equal with no neglect on double simultaneous stimulation. Cerebellar function showed tremulousness for [id number] testing bilaterally but no ataxia. No ataxia for [id number] testing on either side. Tone and bulk of muscles normal. Patient has mild tremors of outstretched hands. Gait deferred.. On general examination, there is no carotid bruit or murmur, S1-S2 audible. Chest is clear on consultation. Abdomen is soft nontender. No organomegaly, bowel sounds present. Peripheral pulses are present. No peripheral edema. Results - Laboratory Findings CBC and BMP: 05/25/24 04:07 05/25/24 04:07 Abnormal Lab Findings: Abnormal Labs 05/24/24 05/25/24 21:14 04:07 Sodium 134 L 135 L Chloride 97 L Glucose 100 H Assessment and Plan Assessment: * Medically intractable epilepsy, came with breakthrough recurrent seizures. Exact cause of breakthrough seizure unclear. He is compliant with the medications, levels are therapeutic. * Presence of VNS and RNS. Patient is on 4 antiepileptic medication with therapeutic doses and levels. Patient is fully compliant with medications. * History of right Hammonds's palsy * Diabetes * Hypertension * Obesity * Sleep apnea Plan: * Patient's breakthrough seizure is of unclear cause. He is compliant with medications. * Continue seizure medications including Depakote 1000 mg twice a day, Briviact 100 mg twice daily and Carbatrol 200 mg twice a day (at 2 PM and 8 PM) and 100 mg at 8 AM. * Depakote level is subtherapeutic 64.9, Tegretol 7.9 (4-12). Lamictal level pending. Patient's Lamictal level is usually on the lower limits of normal range. We will increase dose of Lamictal by 25 mg at night. Therefore he will take 100 mg in the morning and 125 mg at night. He will stay on the same dose of all other antiepileptic medication. * Continue Plavix 75 mg, Zetia 10 mg and Lipitor 80 mg. * Patient needs to establish with new epileptologist as soon as possible, as his epileptologist has retired. * Patient was informed of [place] state law of no driving unless seizure free for 6 months, climbing ladders, operating dangerous machinery or unsupervised swimming. * Neurologically clear for discharge, if he remains stable overnight. * Thank you for the consult.
[2024-05-26 04:08] VITALS: PULSE 66
[2024-05-26 06:01] LABS: Basophils % (A) 1 %; Eosinophils # (A) 0.1 k/uL (0-0.7); Eosinophils % (A) 1 %; HCT 43.9 % (39.0-53.0); HGB 14.6 gm/dL (13.0-17.5); Lymphocytes # (A) 2.9 k/uL (1.0-4.8); Lymphocytes % (A) 37 %; MCH 30.9 pg (25.0-35.0); MCHC 33.3 g/dL (31.0-37.0); Mean Platelet Volume 7.3; Monocytes # (A) 0.6 k/uL (0-1.0); Monocytes % (A) 8 %; Neutrophils # (A) 4.1 k/uL (1.3-7.7); Neutrophils % (A) 52 %; Platelet Count 219 k/uL (150-450); RBC 4.71 m/uL (4.30-5.90); RDW 13.5 % (11.5-15.5)
[2024-05-26 06:16] LABS: African American GFR (CKD) >90 (>60 ml/min/1.73 sqM); Anion Gap 11 mmol/L; Blood Urea Nitrogen 13 mg/dL (9-20); Calcium 9.5 mg/dL (8.4-10.2); Carbon Dioxide 27 mmol/L (22-30); Chloride 90 mmol/L (98-107); Glucose 92 mg/dL (74-99); Non-African American GFR(CKD) >90 (>60 ml/min/1.73 sqM); Potassium 3.9 mmol/L (3.5-5.1); Sodium 128 mmol/L (137-145)
[2024-05-26 07:34] VITALS: BP 129/88; RESP 16; TEMP 97.9
--- NOTE | 2024-05-26 11:07 | P.DS ---
Providers Date of admission: 05/24/24 23:56 Attending physician: John Tate MD Consults: 05/24/24 23:50 Consult Physician Urgent Consulting Provider: [facility] Consult Reason/Comments: acute chest pain, abn stress test Do you want consulting provider notified?: Yes 05/25/24 10:49 Consult Physician Routine Consulting Provider: Valdez Denson Consult Reason/Comments: breakthrough seizure Do you want consulting provider notified?: Yes Primary care physician: Aman Smyth [place] [facility] Course: Discharge diagnoses; #Breakthrough seizure, of unclear cause #Epilepsy, last seizure 05/24/2024 #Chest pain, ruled out ACS #Hyponatremia Hospital course; 59-year-old male with past medical history significant for seizures, CVA/TIA, hypertension, history of SD, hyperlipidemia presents emergency department today after having an unwitnessed seizure. He was out shopping when he was found unresponsive on the floor. He states that his last seizure was about 1 month prior. He did not really on surrounding his seizure and was unsure if he hit his head. Upon arrival to the emergency department he underwent a head/cervical spine CT which showed no acute intracranial process. He was followed by cardiology and neurology while in the hospital. Cardiology made changes to his medication, looking for better blood pressure control which improved overnight. Neurology instructed the patient to continue with his current seizure medications, will also noting that his Lamictal level was in the low range of normal. Increased his Lamictal to 100 mg in the morning 125 mg at night. Encouraged to establish with a new epileptologist as soon as possible as his previous one retired. Additionally, informed of the [place] state law of no driving unless seizure-free for at least 6 months; no climbing ladders, operating dangerous machinery or unsupervised swimming. He is excited to be discharged. Physical Exam: General: nontoxic, no distress, appears at stated age Derm: warm, dry, intact Head: atraumatic, normocephalic, symmetric Eyes: EOMI, anicteric sclera Mouth: no lip lesion, mucus membranes moist Cardiovascular: S1 S2 reg, no murmur, rubs, or gallops Lungs: CTA bilateral, no rales, no accessory muscle use Abdominal: soft, non-tender to palpataion, no appreciable organomegaly Extremities: no gross muscle atrophy, no edema, no contractures Neuro: Alert, Oriented, CNII-XII grossly intact, gait normal Psych: well appearing, appropriate affect Dictation was produced using [employer] dictation software. please excuse any grammatical, word or spelling errors. I have seen and evaluated the patient today. Discussed with the resident and agree with the residents finding and plan as documented in the resident's note. Changes highlighted in blue font. HCTZ discontinued due to hyponatremia, Amlodipine increased. Lamictal increased by Neurology. Cleared by Neurology and Cardiology. This complex discharge took 35 minutes to complete. Patient Condition at Discharge: Stable Plan - Discharge Summary Discharge Rx Participant: No New Discharge Prescriptions: New lamoTRIgine [LaMICtal] 25 mg PO DAILY #60 tab amLODIPine [Norvasc] 10 mg PO DAILY #60 tablet Continue Clopidogrel [Plavix] 75 mg PO DAILY Divalproex ER [Depakote ER] 1,000 mg PO BID Niacin (Inositol Niacinate) [Niacin 500 mg Capsule] 500 mg PO DAILY@1400 Multivitamins, Thera [Multivitamin (formulary)] 1 tab PO DAILY@1400 Atorvastatin Calcium [Lipitor] 80 mg PO HS Folic Acid 0.8 mg PO DAILY@1400 Thiamine [Vitamin B-1] 100 mg PO DAILY@1400 Cholecalciferol [Vitamin D3 (125 Mcg = 5000 Iu)] 125 mcg PO DAILY@1400 lamoTRIgine [LaMICtal] 100 mg PO BID Acetaminophen Tab [Tylenol] 325 mg PO Q6H PRN PRN Reason: Fever And/ Or Pain Brivaracetam [Briviact] 50 mg PO BID Brivaracetam [Briviact] 100 mg PO BID Ezetimibe [Zetia] 10 mg PO DAILY carBAMazepine 200 mg PO BID@1400,2000 carBAMazepine 100 mg PO DAILY rOPINIRole HCL [Requip] 1 mg PO BID Bimatoprost [Lumigan 0.01% Ophth Soln] 1 drop BOTH EYES HS Loperamide [Imodium] 2 mg PO QID PRN #40 cap PRN Reason: Diarrhea Discontinued amLODIPine [Norvasc] 2.5 mg PO HS Discharge Medication List Clopidogrel [Plavix] 75 mg PO DAILY 03/16/17 [History] Divalproex ER [Depakote ER] 1,000 mg PO BID 05/26/18 [History] Multivitamins, Thera [Multivitamin (formulary)] 1 tab PO DAILY@1400 05/26/18 [History] Niacin (Inositol Niacinate) [Niacin 500 mg Capsule] 500 mg PO DAILY@139905/26/18 [History] Atorvastatin Calcium [Lipitor] 80 mg PO HS 10/30/19 [History] Folic Acid 0.8 mg PO DAILY@1400 10/30/19 [History] Cholecalciferol [Vitamin D3 (125 Mcg = 5000 Iu)] 125 mcg PO DAILY@139907/12/21 [History] Ezetimibe [Zetia] 10 mg PO DAILY 07/12/21 [History] Thiamine [Vitamin B-1] 100 mg PO DAILY@139907/12/21 [History] carBAMazepine 100 mg PO DAILY 07/12/21 [History] carBAMazepine 200 mg PO BID@1399,199907/12/21 [History] rOPINIRole HCL [Requip] 1 mg PO BID 09/23/21 [History] lamoTRIgine [LaMICtal] 100 mg PO BID 01/31/23 [History] Bimatoprost [Lumigan 0.01% Ophth Soln] 1 drop BOTH EYES HS 01/05/24 [History] Acetaminophen Tab [Tylenol] 325 mg PO Q6H PRN 02/28/24 [History] Loperamide [Imodium] 2 mg PO QID PRN #40 cap 03/01/24 [Rx] Brivaracetam [Briviact] 50 mg PO BID 05/24/24 [History] Brivaracetam [Briviact] 100 mg PO BID 05/24/24 [History] amLODIPine [Norvasc] 10 mg PO DAILY #60 tablet 05/26/24 [Rx] lamoTRIgine [LaMICtal] 25 mg PO DAILY #60 tab 05/26/24 [Rx] Follow up Appointment(s)/Referral(s): Yossi Doyle MD [STAFF PHYSICIAN] - 1 Week Aman Smyth MD [Primary Care Provider] - 1-2 days Patient Instructions/Handouts: Seizure/Epilepsy Discharge Instructions & Follow-Up Activity/Diet/Wound Care/Special Instructions: Please establish care with a new epileptologist as soon as possible! Per [place] state law, unless seizure-free for 6 [address] cannot [address] a vehicle, climb ladders, operate dangerous machinery or have any unsupervised swimming. Continue take all medications as prescribed! Discharge Disposition: HOME SELF-CARE
--- NOTE | 2024-05-26 13:13 | P.PN ---
Subjective Progress Note Date: 05/26/24 Consult reason: chest pain History of present illness: This is a 59-year-old male patient of Dr. Doyle with past medical history of hypertension, dyslipidemia, valvular heart disease, TIA, carotid atherosclerosis, history of seizures, history of adrenal mass. We have been asked to evaluate the patient for chest pain. Patient apparently had episode of chest pain that was occurring after he had a breakthrough seizure at home. He also had some difficulty in breathing that has been ongoing especially with activity. He states his chest pain right now is at a 5-6. Blood pressure readings are all elevated. Blood pressure 166/98, heart rate 66, pulse ox 97% on room air. -EKG: Sinus rhythm with ventricular rate of [address]-T wave changes. -CT brain and cervical spine: No acute intracranial process. No acute osseous abnormality in the cervical spine. Degenerative disc changes. -Laboratory studies: CBC within normal limits. Sodium 135, potassium 4.1, creatinine 0.89. Troponin negative x 3 draws. -Home cardiac medications: Amlodipine 2.5 mg at bedtime, atorvastatin 80 mg at bedtime, Plavix 75 mg daily, Zetia 10 mg daily. -Echocardiogram performed in the office on 03/10/2024 revealed EF 50%, mild aortic regurgitation, mild to moderate aortic stenosis. Ascending aorta is enlarged. Mild mitral regurgitation. Mild tricuspid regurgitation. Normal pulmonary artery systolic pressure. -Cardiac catheterization performed 10/07/2021 revealed normal coronaries. Elevated left-sided filling pressure. -Lexiscan stress test performed 03/15/2024 revealed small inferior lateral ischemia. 05/26 Patient seen and examined. Patient denies having any chest pain and no shortness of breath. Yesterday, Norvasc was increased and hydrochlorothiazide was added for blood pressure control. Blood pressure is now 129/88, heart rate 66, pulse ox 99% on room air. Physical examination: Gen: This is a 59-year-old male resting in bed in no acute distress. VS: reviewed HEENT: Head is atraumatic, normocephalic. Pupils equal, round. Sclerae is a nicteric. NECK: Supple. No JVD. LUNGS: Clear to auscultation. No wheezes or rhonchi. No intercostal retractions. HEART: Regular rate and rhythm. Systolic murmur. ABDOMEN: Soft No tenderness. EXTREMITIES: No pedal edema. No calf tenderness. NEUROLOGICAL: Patient is awake, alert and oriented x3. Assessment: Breakthrough seizure Atypical chest pain, acute coronary syndrome ruled out Uncontrolled hypertension Dyslipidemia Mild to moderate aortic stenosis, mild mitral regurgitation, mild tricuspid regurgitation TIA Carotid atherosclerosis History of adrenal mass Plan: Continue patient's home cardiac medications Continue the increased dose of Norvasc 5 mg daily Continue the addition of hydrochlorothiazide 25 mg daily Patient is cleared for discharge from a cardiology perspective. Patient may follow-up in the office with Dr. Doyle in 2 weeks. Nurse practitioner note has been reviewed, I agree with documented findings and plan of care. Patient was seen and examined. Objective - Vital Signs Vital signs: Vital Signs Temp 97.9 F 05/26/24 07:00 Pulse 66 05/26/24 07:00 Resp 16 05/26/24 07:00 BP 129/88 05/26/24 07:00 Pulse Ox 99 05/26/24 07:00 FiO2 Intake & Output 05/25/24 05/26/24 05/26/24 18:59 06:59 18:59 Weight 113.398 kg Other: Voiding Method Toilet Toilet Urinal Urinal # Voids 3 - Labs CBC & Chem 7: 05/26/24 05:39 05/26/24 05:39 Labs: Abnormal Lab Results - Last 24 Hours (Table) 05/26/24 Range/Units 05:39 Sodium 128 L (137-145) mmol/L Chloride 90 L (98-107) mmol/L
--- NOTE | 2024-05-28 15:48 | P.PN ---
Subjective Progress Note Date: 05/26/24 Patient was seen for follow-up. Patient is walking in the hallway. He states he is doing better. Slightly wobbly from change in the medication but otherwise doing well. Wants to go home. Objective - Vital Signs Vital signs: Vital Signs Temp 97.9 F 05/26/24 07:00 Pulse 66 05/26/24 07:00 Resp 16 05/26/24 07:00 BP 129/88 05/26/24 07:00 Pulse Ox 99 05/26/24 07:00 FiO2 Intake & Output 05/25/24 05/26/24 05/26/24 18:59 06:59 18:59 Weight 113.398 kg Other: Voiding Method Toilet Toilet Urinal Urinal # Voids 3 - Exam Examination unchanged. - Labs CBC & Chem 7: 05/26/24 05:39 05/26/24 05:39 Labs: Abnormal Lab Results - Last 24 Hours (Table) 05/26/24 Range/Units 05:39 Sodium 128 L (137-145) mmol/L Chloride 90 L (98-107) mmol/L Assessment and Plan Assessment: * Medically intractable epilepsy, came with breakthrough recurrent seizures. Exact cause of breakthrough seizure unclear. He is compliant with the medications, levels are therapeutic. * Presence of VNS and RNS. Patient is on 4 antiepileptic medication with therapeutic doses and levels. Patient is fully compliant with medications. * History of right Hammonds's palsy * Diabetes * Hypertension * Obesity * Sleep apnea Plan: * Patient's breakthrough seizure is of unclear cause. He is compliant with medications. * Continue seizure medications including Depakote 1000 mg twice a day, Briviact 100 mg twice daily and Carbatrol 200 mg twice a day (at 2 PM and 8 PM) and 100 mg at 8 AM. * Depakote level is therapeutic 64.9, Tegretol 7.9 (4-12). Lamictal level 3.2 (2-15). Patient's Lamictal level is in a very borderline range. We will increase dose of Lamictal by 25 mg at night. Therefore he will take 100 mg in the morning and 125 mg at night. He will stay on the same dose of all other antiepileptic medication. * Continue Plavix 75 mg, Zetia 10 mg and Lipitor 80 mg. * Patient needs to establish with new epileptologist as soon as possible, as his epileptologist has retired. * Patient was informed of [place] state law of no driving unless seizure free for 6 months, climbing ladders, operating dangerous machinery or unsupervised swimming. * Neurologically clear for discharge. We will sign off.
== END 2024-05-26 14:00 | disposition home or self-care (01) ==
LOC: EC 19:09 → 6NMEDSUR 23:56
PROVIDERS: ADMIT Internal Medicine; ATTEND Internal Medicine
DX: G40.919 Epilepsy, unspecified, intractable, without status epilepticus (principal); E87.1 Hypo-osmolality and hyponatremia; I10 Essential (primary) hypertension; R07.89 Other chest pain; R07.2 Precordial pain; R94.39 Abnormal result of other cardiovascular function study; I65.29 Occlusion and stenosis of unspecified carotid artery; I08.3 Combined rheumatic disorders of mitral, aortic and tricuspid valves; E11.9 Type 2 diabetes mellitus without complications; E78.5 Hyperlipidemia, unspecified; I25.2 Old myocardial infarction; M50.30 Other cervical disc degeneration, unspecified cervical region; E27.9 Disorder of adrenal gland, unspecified; G47.30 Sleep apnea, unspecified; E66.9 Obesity, unspecified; Z68.41 Body mass index [BMI] 40.0-44.9, adult; Z79.02 Long term (current) use of antithrombotics/antiplatelets; Z79.899 Other long term (current) drug therapy; Z86.69 Personal history of other diseases of the nervous system and sense organs; Z86.73 Personal history of transient ischemic attack (TIA), and cerebral infarction without residual deficits
CPT/HCPCS: 96372 ×3; 99285; 36415; 93005; 80156; 80164; 80053; 80048 ×2; 80175; 83735; 84484 ×2; 85025 ×3; 81003; 80320; 72125; 70450; G0378 ×2; J1650 ×2

== ENCOUNTER → 2024-06-19 | Outpatient (CLI) | payer OTHER, MEDICARE ==
[2024-06-19 10:32] LABS: Blood Urea Nitrogen 13.4 mg/dL (9.0-27.0); Carbon Dioxide 26.3 mmol/L (21.6-31.8); Chloride 99 mmol/L (96-109); Potassium 4.6 mmol/L (3.5-5.5); Sodium 136 mmol/L (135-145)
[2024-06-19 10:51] LABS: HCT 44.1 % (39.6-50.0); HGB 14.7 g/dL (13.0-17.0); MCH 31.2 pg (27.0-32.0); MCHC 33.3 g/dL (32.0-37.0); MCV 93.6 FL (80.0-97.0); NRBC Per 100 WBC 0 X 10*3/uL (0.00-0.01); Platelet Count 226 X 10*3/uL (140-440); RBC 4.71 X 10*6/uL (4.40-5.60); RDW 13.5 % (11.5-14.5); WBC 7.49 X 10*3/uL (4.50-10.00)
== END | disposition home or self-care (01) ==
LOC: LABPAT 07:47
PROVIDERS: ATTEND Internal Medicine Interventional Cardiology
DX: Z01.812 Encounter for preprocedural laboratory examination (principal); R07.9 Chest pain, unspecified
CPT/HCPCS: 80051; 82565; 84520; 85027

== ENCOUNTER → 2024-06-26 | Day surgery (SDC) | payer OTHER, MEDICARE ==
[~2024-06-26] MED LIST changes: -ASPIRIN 325 MG TAB PO STA; -ATORVASTATIN 80 MG TAB PO STA; +HEPARIN SODIUM,PORCINE (1 ML) 2,500 UNIT in SODIUM CHLORIDE 0.9% 250 ML IRRIGATION PRN; -HEPARIN SODIUM,PORCINE 2,500 UNIT in SODIUM CHLORIDE 0.9% 250 ML IRRIGATION PRN; +RX INFO: IV CONTRAST WAS GIVEN 1 EACH MISC MISCELLANE PRN; +SODIUM CHLORIDE 0.9% 1,000 ML IV SCH; -SODIUM CHLORIDE 0.9% 1,000 ML in EMPTY BAG 1 BAG IV SCH
[2024-06-26] MEDS: SODIUM CHLORIDE 0.9% 1,000 ML in EMPTY BAG 1 BAG IV SCH (07:36)
[2024-06-26] MEDS: ASPIRIN 325 MG TAB PO STA (07:36)
[2024-06-26] MEDS: IV FLUID CONTINUATION 1,000 ML IV ONE (07:55)
[2024-06-26 08:03] VITALS: TEMP 97.7
[2024-06-26] MEDS: MIDAZOLAM 2 MG/2 ML VIAL IVP ONE (09:42)
[2024-06-26] MEDS: LIDOCAINE 1% INJ 10MG/ML (20 ML MDV) SQ ONE (09:44)
[2024-06-26] MEDS: VERAPAMIL SYRINGE (5 MG/10 ML) INTRAARTER ONE (09:45)
[2024-06-26] MEDS: HEPARIN SODIUM 1,000 UN/ML (10ML VL) IV ONE (09:47)
--- NOTE | 2024-06-26 09:56 | P.PCN ---
Date of Procedure: 06/26/24 Operative Findings: CARDIAC CATHETERIZATION PERFORMING PHYSICIAN: Yossi Doyle MD, RPVI PROCEDURE PERFORMED: 1. Selective right and left coronary angiogram 2. Left heart catheterization 3. Ultrasound-guided access of the right radial artery INDICATION: Symptomatic 59-year-old gentleman with abnormal myocardial perfusion imaging stress test COMPLICATION: None APPROACH: Right radial artery LEVEL OF SEDATION: Moderate with a sedation length of 8 minutes PROCEDURE DESCRIPTION: After obtaining an informed consent, the patient was brought to cardiac ammunition assembly laborer. Local anesthesia was performed using lidocaine subcutaneously. The right radial artery was cannulated using Seldinger technique, under ultrasound guidance, the guidewire passed easily, following that we advanced a 5-[place] sheath dilator assembly, the wire and dilator were removed and sheath was flushed. Following that, 2 mg of verapamil along with 5000 unit heparin were given. Selective right and left coronary angiogram using a 5-[place] JR4 and JL 3.5 catheters. Following that we did left heart catheterization using 5-[place] pigtail catheter. The procedure was completed there was no complication. SELECTIVE CORONARY ANGIOGRAM: The right coronary artery: Medium caliber vessel nondominant vessel appears to be angiographically normal Left main: Is angiographically normal The left circumflex: Large caliber vessel and a dominant vessel. Is normal with gives rise into an OM1 which appears to be normal and distally bifurcates into PDA and PLV branches both appear to be normal The left anterior descending artery: Large caliber vessel with no evidence of high-grade stenosis and gives rise into diagonal branch which seems to be normal HEMODYNAMICS: The LVEDP was 20 mmHg with no significant gradient across aortic valve CONCLUSION: 1. Normal coronary angiogram 2. Elevated left-sided filling pressure POSTPROCEDURE MANAGEMENT: Medical treatment
[2024-06-26] MEDS: IOPAMIDOL-370 100ML BTL INJ ONE (09:58)
[2024-06-26 18:29] VITALS: BP 167/90; PULSE 66; RESP 14
== END ==
LOC: CATHCVL 07:02
PROVIDERS: ATTEND Internal Medicine Interventional Cardiology
DX: R94.39 Abnormal result of other cardiovascular function study (principal); I10 Essential (primary) hypertension; E78.5 Hyperlipidemia, unspecified; I38 Endocarditis, valve unspecified; E27.8 Other specified disorders of adrenal gland; I77.819 Aortic ectasia, unspecified site; G40.919 Epilepsy, unspecified, intractable, without status epilepticus; Z86.73 Personal history of transient ischemic attack (TIA), and cerebral infarction without residual deficits; Z79.899 Other long term (current) drug therapy
CPT/HCPCS: 93458; C1894; J2250; J2003; J1644; Q9967